=== PATIENT | male | born 1940 | race Caucasian/White ===

== ENCOUNTER 2019-11-15 11:38 | Outpatient (CLI) | payer MEDICARE, OTHER, SELFPAY ==
--- NOTE | 2019-11-15 | US_ITS ---
WS: [id number] ULTRASOUND ABDOMINAL AORTA INDICATION: Abdominal pain CTA TECHNIQUE: Ultrasound examination of the abdominal aorta with Doppler. FINDINGS: Abdominal aorta appears unchanged from prior CTA. Proximal common iliac arteries are normal caliber. Distal abdominal aorta measures 2.0 x 1.9 cm. 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 Distal abdominal aorta measures 2.0 x 1.9 cm.
== END 2019-11-15 11:39 | disposition home or self-care (01) ==
LOC: RADOUTREAD 13:20
PROVIDERS: Family Provider Family Medicine; Visit Provider Family Medicine
DX: Z76.89 Persons encountering health services in other specified circumstances (principal)

== ENCOUNTER 2019-11-18 20:12 | Emergency (ER) | payer MEDICARE, OTHER, SELFPAY ==
[2019-11-18 20:28] VITALS: BP 196/69; PULSE 38; RESP 18; TEMP 37.1; O2SAT 96; BMI 29.5
[2019-11-18 20:49] VITALS: BP 169/80; PULSE 40; RESP 13; O2SAT 96
--- NOTE | 2019-11-18 21:07 | ED_ITS ---
Entered by Karena Hunt, acting as scribe for Parker Villegas DO HPI - General Adult General: Chief complaint: General Medical Stated complaint: high bp/low hr Time Seen by Provider: 11/18/19 21:04 Source: patient Mode of arrival: ambulatory Limitations: no limitations History of Present Illness: HPI narrative: 79 yo m came to the er pov with for low pulse rate. Pt states that he had open heart surgery 8 years ago. Pt has been having some trouble keeping it up. MD complaint: low pulse rate Onset (ago): day(s) (today) Severity: mild Associated symptoms: Deny chest pain, confusion, dyspnea, headache(s), nausea, rash, palpitations or vomiting Review of Systems Const: Denies: fever or chills Eyes: Denies: change in vision or blurry vision ENMT: Denies: painful swallowing, swelling of lips/tongue, bleeding gums, dental pain, Change in hearing, nose bleeds, post nasal drip or facial/sinus pain Card: Denies: chest pain, palpitations, irregular heart rhythm, edema, swelling of feet/ankles, shortness of breath on exertion or shortness of breath when lying down Resp: Denies: shortness of breath, productive cough, non-productive cough or wheezing GI: Denies: abdominal pain, nausea, vomiting, rectal pain, blood in stool or black tarry stool : Denies: difficulty urinating, painful urination, urinary frequency, urinary urgency or blood in urine Musc: Denies: neck pain, back pain, redness or joint warmth Skin/Breast: Denies: rash, itching or redness Neuro: Denies: headache, dizziness, vertigo, confusion or seizure-like activity Psych: Denies: anxiety PFSH ED PFSH: Statuses (acute, chronic, etc) shown below reflect problem list status as previously entered and may not be historically accurate Social History Smoking and tobacco status: former smoker Physical Exam Const: GENERAL APPEARANCE: well developed ORIENTATION/CONSCIOUSNESS: Yes oriented to person, Yes oriented to place and Yes oriented to time HENMT: COMMON NORMALS: normocephalic, external ears normal and external nose normal HEAD & SCALP: normocephalic; no scalp tenderness FACE & SINUS: normal facial exam NOSE: external nose normal and no nasal discharge EXTERNAL EAR: Yes external ears normal MOUTH: tongue normal TEETH & GINGIVA: no abnormal tooth and associated gingiva THROAT: posterior oropharynx normal; no peritonsillar mass Eye: COMMON NORMALS: PERRL, EOMs intact bilaterally and conjunctivae normal EYELID: eyelids normal CONJUNCTIVA: Yes conjunctivae normal PUPIL: Yes PERRL Neck/C-Spine: COMMON NORMALS: full ROM GENERAL: No tracheal deviation Chest: COMMONS NORMALS: inspection of chest normal CHEST: No tenderness Resp: COMMON NORMALS: clear to auscultation bilaterally EFFORT & INSPECTION: No tachypneic, No respiratory distress, No retractions, No uses accessory muscles and No tracheal deviation AUSCULTATION: clear to auscultation bilaterally, no rhonchi, no wheezes and lung sounds not diminished Cardio: COMMON NORMALS: negative for regular rate and negative for regular rhythm RATE: abnormal rate RHYTHM: abnormal rhythm HEART SOUNDS: no murmurs PERIPHERAL PULSES: radial pulses present GI: INSPECTION: No abdominal distension AUSCULTATION: No hyperactive bowel sounds and No hypoactive bowel sounds PALPATION: No guarding and No rigid PERCUSSION: no dullness to percussion and no tympanic to percussion Neuro: SENSORIUM/ORIENTATION: Yes oriented to person, Yes oriented to place and Yes oriented to time Psych: COMMON NORMALS: mental status grossly normal Skin: COMMON NORMALS: no rashes or lesions noted GENERAL SKIN EXAM: no rashes or lesions noted Course ED course: 79-year-old male with a irregular bradycardic rhythm that is been going on for quite some time. He is not presyncopal or syncopal. He is not experiencing chest discomfort or shortness of breath. He had told his primary physician about it previously, and an EKG was run showing frequent PVCs. Similar EKG showing sinus bradycardia with frequent PVCs is seen here. His troponin did not change at 2 hours. His other work-up is benign including chest x-ray which is negative. He is taking metoprolol daily, which could be adding to his bradycardia. He has an appointment with a physician wanigan clerk at the cardiology clinic on Thursday. He will hold his metoprolol for the next 2 days, monitor his blood pressure and heart rate closely, and report numbers to them. He knows to return for any problems. Vital Signs: Vital signs: Vital Signs Temperature 98.7 F 11/18/19 20:28 Pulse Rate 53 L 11/19/19 00:56 Respiratory Rate 14 11/19/19 00:56 Blood Pressure 136/58 11/19/19 00:56 Pulse Oximetry 95 11/19/19 00:56 [facility] - General Adult Lab Data: Labs: Lab Results 11/18/19 11/18/19 11/18/19 Range/Units 21:50 21:50 21:50 WBC 6.7 (4.0-10.0) 10^3/ uL RBC 4.37 (4.1-5.3) 10^6/u L Hgb 13.3 (11.7-16.6) g/dL Hct 40.3 L (42.0-52.0) % MCV 92.2 (80-94) fL MCH 30.4 (28.0-34.0) pg MCHC 33.0 (30.0-36.0) g/dL RDW 12.4 (12.1-15.1) % Plt Count 207 (130-400) 10^3/c mm MPV 11.1 H (7.4-10.4) fL Neut % (Auto) 46.9 % Lymph % (Auto) 33.8 % Hart % (Auto) 14.1 % Eos % (Auto) 3.6 % Baso % (Auto) 1.4 % Neut # (Auto) 3.1 (1.8-7.7) 10^3/u L Lymph # (Auto) 2.3 (0.8-4.8) 10^3/u L Hart # (Auto) 0.9 (0.2-0.9) 10^3/u L Eos # (Auto) 0.2 (0.0-0.8) 10^3/u L Baso # (Auto) 0.1 (0.0-0.1) 10^3/u L Nucleated RBC % (a uto) 0 % Nucleated RBCs # 0.0 /100WBC PT 22.30 H (10.5-13.3) SECO NDS INR 1.88 H (0.8-1.2) APTT 51.7 H (23.9-36.7) SECO NDS Sodium 138 (136-145) mmol/L Potassium 4.1 (3.5-5.1) mmol/L Chloride 103 (98-107) mmol/L Carbon Dioxide 23 (22-29) mmol/L Anion Gap 16.1 (5-19) BUN 16 (8-23) mg/dL Creatinine 1.0 (0.7-1.2) mg/dL Glucose 120 H (74-106) mg/dL Calcium 9.5 (8.5-10.5) mg/dL Magnesium 2.3 (1.7-2.3) mg/dL Total Bilirubin 0.2 (0.15-1.2) mg/dL AST 19 (0-40) U/L ALT 16 (0-41) U/L Alkaline Phosphata se 77 (40-130) IU/L Creatine Kinase 231 (39-308) U/L Troponin T Baselin e (0-15) ng/mL Troponin T 120 Min cachil dehe (0-15) ng/mL Delta Troponin T (0-10) ABS# NT-Pro-B Natriuret Pep 317 (0-450) pg/mL Total Protein 6.8 (6.6-8.7) g/dL Albumin 3.9 (3.5-5.2) g/dL Globulin 2.9 (1.3-4.6) g/dL TSH 4.47 H (0.27-4.20) uIU/ mL Urine Color (Yellow) Urine Appearance (CLEAR) Urine pH (5-7) Ur Specific Gravit y (1.005-1.030) Urine Protein (Negative) Urine Glucose (UA) (Normal) Urine Ketones (Negative) Urine Occult Blood (Negative) Urine Nitrate (Negative) Urine Bilirubin (NEGATIVE) Urine Urobilinogen (Negative) mg/dL Ur Leukocyte Maria Guadalupe ase (Negative) Urine RBC (0-2) /hpf Urine WBC (0-5) /hpf Ur Squamous Epith Cells (0-5) Urine Bacteria (NONE) 11/18/19 11/18/19 11/18/19 Range/Units 21:50 22:24 23:38 WBC (4.0-10.0) 10^3/ uL RBC (4.1-5.3) 10^6/u L Hgb (11.7-16.6) g/dL Hct (42.0-52.0) % MCV (80-94) fL MCH (28.0-34.0) pg MCHC (30.0-36.0) g/dL RDW (12.1-15.1) % Plt Count (130-400) 10^3/c mm MPV (7.4-10.4) fL Neut % (Auto) % Lymph % (Auto) % Hart % (Auto) % Eos % (Auto) % Baso % (Auto) % Neut # (Auto) (1.8-7.7) 10^3/u L Lymph # (Auto) (0.8-4.8) 10^3/u L Hart # (Auto) (0.2-0.9) 10^3/u L Eos # (Auto) (0.0-0.8) 10^3/u L Baso # (Auto) (0.0-0.1) 10^3/u L Nucleated RBC % (a uto) % Nucleated RBCs # /100WBC PT (10.5-13.3) SECO NDS INR (0.8-1.2) APTT (23.9-36.7) SECO NDS Sodium (136-145) mmol/L Potassium (3.5-5.1) mmol/L Chloride (98-107) mmol/L Carbon Dioxide (22-29) mmol/L Anion Gap (5-19) BUN (8-23) mg/dL Creatinine (0.7-1.2) mg/dL Glucose (74-106) mg/dL Calcium (8.5-10.5) mg/dL Magnesium (1.7-2.3) mg/dL Total Bilirubin (0.15-1.2) mg/dL AST (0-40) U/L ALT (0-41) U/L Alkaline Phosphata se (40-130) IU/L Creatine Kinase (39-308) U/L Troponin T Baselin e 28 H (0-15) ng/mL Troponin T 120 Min cachil dehe 25.59 H (0-15) ng/mL Delta Troponin T -2.41 L (0-10) ABS# NT-Pro-B Natriuret Pep (0-450) pg/mL Total Protein (6.6-8.7) g/dL Albumin (3.5-5.2) g/dL Globulin (1.3-4.6) g/dL TSH (0.27-4.20) uIU/ mL Urine Color Yellow (Yellow) Urine Appearance Clear (CLEAR) Urine pH 6.5 (5-7) Ur Specific Gravit y 1.010 (1.005-1.030) Urine Protein Neg (Negative) Urine Glucose (UA) Norm (Normal) Urine Ketones Negative (Negative) Urine Occult Blood 2+ H (Negative) Urine Nitrate Negative (Negative) Urine Bilirubin Neg (NEGATIVE) Urine Urobilinogen Norm (Negative) mg/dL Ur Leukocyte Maria Guadalupe ase Negative (Negative) Urine RBC Rare (0-2) /hpf Urine WBC None (0-5) /hpf Ur Squamous Epith Cells None (0-5) Urine Bacteria Trace (NONE) Discharge Plan Discharge Patient Disposition: Home, Self-Care Condition: Stable Discharge Orders: Discharge Order (Routine); Ordered 11/19/19 Ordered By: Parker Villegas Referrals: Brandon Lopez MD [Primary Care Provider] - Discharge Diet: Usual diet Discharge Activity: Increase activity as tolerated Patient Instructions: Bradycardia (ED) Activity Restrictions/Additional Instructions: Try holding your metoprolol over the weekend. Check your blood pressure and heart rate twice daily. If symptomatic, meaning significantly dizzy, feeling like you are going to pass out, lightheaded, mental status changes, chest discomfort, other concerning symptoms, return to the ER. Otherwise keep your appointment on Thursday. Report your heart rate and blood pressure readings then. Discharge Date/Time: 11/19/19 01:03 Coding Level of Care Code ED Cullet Crusher for Chg Lo The documentation recorded by the Gilbert perales Stephanie Lyn, accurately reflects the service I personally performed and the decisions made by Bakari mora Jeremy John, Nov 18, 2019 20:12
--- NOTE | 2019-11-18 21:42 | XRR_ITS ---
PROCEDURE INFORMATION: Exam: XR Chest, 1 View Exam date and time: 11/18/2019 9:44 PM Age: 79 years old Clinical indication: Other: Low heart rate; Prior surgery; Surgery type: Open heart; Additional info: Cp TECHNIQUE: Imaging protocol: XR of the chest Views: 1 view. COMPARISON: CR Chest 2 views* [id number] 08/30/2018 3:17 AM FINDINGS: Lungs: Unremarkable. No consolidation. Pleural space: Unremarkable. No pleural effusion. No pneumothorax. Heart/Mediastinum: The heart is enlarged. Sternotomy wires and mediastinal surgical clips are present, consistent with previous coronary arterial bypass grafting. Bones/joints: No acute abnormality. XR/XR chest 1V portable [id number] IMPRESSION: No acute findings.
--- NOTE | 2019-11-18 21:43 | ECG_ITS ---
Measurements Intervals [place] Rate: 69 P: 25 SD: 152 QRS: 66 QRSD: 106 T: -14 QT: 387 QTc: 415 SINUS RHYTHM WITH FREQUENT VENTRICULAR PREMATURE COMPLEXES IN A BIGEMINAL PATTERN NONSPECIFIC ST & T-WAVE ABNORMALITY Compared to ECG 04/16/2018 14:14:48 T-wave abnormality now present Incomplete right bundle-branch block no longer present Electronically Signed On 11-19-2019 16:23:24 DISTRICT RECRUITER by Damián Earl M.D. [id number]
[2019-11-18 21:59] LABS: Basophils # 0.1 10^3/uL (0.0-0.1); Basophils % 1.4 %; Eosinophils # 0.2 10^3/uL (0.0-0.8); Eosinophils % 3.6 %; Hematocrit 40.3 % (42.0-52.0); Hemoglobin 13.3 g/dL (11.7-16.6); Lymphocytes # 2.3 10^3/uL (0.8-4.8); Lymphocytes % 33.8 %; Mean Corpuscular Hemoglobin 30.4 pg (28.0-34.0); Mean Corpuscular Volume 92.2 fL (80-94); Mean Platelet Volume 11.1 fL (7.4-10.4); Monocytes # 0.9 10^3/uL (0.2-0.9); Monocytes % 14.1 %; Neutrophils # 3.1 10^3/uL (1.8-7.7); Neutrophils % 46.9 %; Nucleated Red Blood Cells % 0 %; Platelet Count 207 10^3/cmm (130-400); Red Blood Count 4.37 10^6/uL (4.1-5.3); Red Cell Distribution Width 12.4 % (12.1-15.1); White Blood Count 6.7 10^3/uL (4.0-10.0)
[2019-11-18 22:06] VITALS: BP 149/79; PULSE 31; RESP 14; O2SAT 94
[2019-11-18 22:27] LABS: INR 1.88 (0.8-1.2)
[2019-11-18 22:28] LABS: Partial Thromboplastin Time 51.7 SECONDS (23.9-36.7)
[2019-11-18 22:40] LABS: Troponin(5th) Baseline 28 ng/mL (0-15)
[2019-11-18 22:49] LABS: Add Urine Microscopic? YES; Bilirubin Urine Neg (NEGATIVE); Blood Urine 2+ (Negative); Glucose Urine UA Norm (Normal); Ketones Urine Negative (Negative); Leukocyte Esterase Urine Negative (Negative); Nitrate Urine Negative (Negative); Protein Urine Neg (Negative); Urine Appearance Clear (CLEAR); Urine Color Yellow (Yellow); Urobilinogen Urine Norm (Negative); pH Urine 6.5 (5-7)
[2019-11-18 22:53] LABS: Add Urine Culture? No; Bacteria Urine TRACE; RBC Urine RARE /hpf (0-2)
[2019-11-18 23:04] LABS: Alanine Aminotransferase 16 U/L (0-41); Albumin Level 3.9 g/dL (3.5-5.2); Alkaline Phosphatase 77 IU/L (40-130); Anion Gap 16.1 (5-19); Aspartate Amino Transferase 19 U/L (0-40); Blood Urea Nitrogen 16 mg/dL (8-23); Calcium 9.5 mg/dL (8.5-10.5); Carbon Dioxide 23 mmol/L (22-29); Chloride 103 mmol/L (98-107); Creatine Phosphokinase 231 U/L (39-308); Globulin 2.9 g/dL (1.3-4.6); Glucose 120 mg/dL (74-106); Magnesium 2.3 mg/dL (1.7-2.3); NT Pro B Type Natriuretic Pept 317 pg/mL (0-450); Potassium 4.1 mmol/L (3.5-5.1); Sodium 138 mmol/L (136-145); Thyroid Stimulating Hormone 4.47 uIU/mL (0.27-4.20); Total Bilirubin 0.2 mg/dL (0.15-1.2); Total Protein 6.8 g/dL (6.6-8.7)
[2019-11-19] LABS: Troponin 5 2HR 25.59 ng/mL (0-15)
--- NOTE | 2019-11-19 00:01 | PC.NURSE ---
EKG done at 0000 and shown to ER doctor.
[2019-11-19] MEDS: enalaprilat 1.25 mg/mL Inj IVP (00:02)
[2019-11-19 00:03] VITALS: BP 147/58; PULSE 34; RESP 16; O2SAT 97
[2019-11-19 00:08] LABS: Troponin 5 2HR Delta -2.41 ABS# (0-10)
[2019-11-19 00:56] VITALS: BP 136/58; PULSE 53; RESP 14; O2SAT 95
--- NOTE | 2019-11-19 03:43 | ECG_ITS ---
Measurements Intervals [place] Rate: 58 P: 42 SD: 175 QRS: -3 QRSD: 109 T: 78 QT: 462 QTc: 458 SINUS BRADYCARDIA WITH OCCASIONAL VENTRICULAR PREMATURE COMPLEXES MINIMAL ST DEPRESSION [0.025+ mV ST DEPRESSION] Compared to ECG 04/16/2018 14:14:48 ST (T wave) deviation now present Sinus rhythm no longer present Incomplete right bundle-branch block no longer present Electronically Signed On 11-19-2019 16:28:38 SCHOOL PSYCHOLOGY SPECIALIST by Damián Earl M.D. [id number]
== END 2019-11-19 01:03 | disposition home or self-care (01) ==
PROVIDERS: Emergency Provider Emergency Medicine; Family Provider Family Medicine; PCP Family Medicine
DX: I10 Essential (primary) hypertension (principal); Z87.891 Personal history of nicotine dependence; R07.9 Chest pain, unspecified
CPT/HCPCS: 71045; 80053; 81001; 82550; 83735; 83880; 84443; 84484; 85025; 85610; 85730; 93005; 96374; 99283; 99284; A9270; J3490

== ENCOUNTER 2019-11-21 15:21 | Emergency (ER) | payer MEDICARE, OTHER, SELFPAY ==
[2019-11-21 15:08] VITALS: BP 177/64; PULSE 71; RESP 18; TEMP 36.8; O2SAT 96; BMI 29.5
--- NOTE | 2019-11-21 15:21 | ED_ITS ---
Entered by Jazmyne Pérez, acting as scribe for HPI - Chest Pain General: Chief Complaint: Chest Pain Stated Complaint: HEART PALPITATIONS History of Present Illness: HPI narrative: 79 yo male presents with palpations. Pt states that he has an appointment with his senior assistant manager at 330 today but he had some chest pains and palpations that he was concerned with. Pt is hypertensive, so he took nitro. Pt states that he noticed that he has been having low heart rate lately. MD complaint: chest pain Associated symptoms: Reports palpitations; Deny abdominal pain, dyspnea, fever(s), nausea, syncope or vomiting Review of Systems Const: Denies: fever, chills, body aches, fatigue, malaise or night sweats Eyes: Denies: change in vision or blurry vision ENMT: Denies: throat pain, oral sores/lesions, dental pain, nasal discharge or nasal congestion Card: Reports: palpitations and irregular heart rhythm; Denies: chest pain, edema, syncope, shortness of breath on exertion, shortness of breath when lying down or leg pain with exertion Resp: Denies: shortness of breath, productive cough, non-productive cough or wheezing GI: Denies: abdominal pain, nausea, vomiting, vomiting blood, coffee grounds in vomit, difficulty swallowing, heartburn/indigestion, diarrhea, constipation, cramping, blood in stool or black tarry stool : Denies: flank pain, difficulty urinating, painful urination, urinary frequency, urinary urgency, urinary incontinence or blood in urine Musc: Denies: neck pain, back pain, extremity pain, extremity swelling, joint pain or joint swelling Skin/Breast: Denies: rash, itching or redness Neuro: Denies: headache, numbness in extremities, weakness in extremities, changes in sensation, lack of coordination, difficulty walking, frequent falls, dizziness, vertigo or confusion Psych: Denies: anxiety, depression, loss of interest, visual hallucinations, auditory hallucinations, suicidal ideation or homicidal ideation Endo: Denies: excessive urination, excessive thirst, tired all the time or cold intolerance Jean Marie/Lymph: Denies: easy bruising, easy bleeding, petechiae, enlarged lymph nodes or tender lymph nodes PFSH ED PFSH: Statuses (acute, chronic, etc) shown below reflect problem list status as previously entered and may not be historically accurate Medical History Coronary artery disease (Acute) DVT (deep venous thrombosis) (Acute) Hypertension (Acute) Superficial thrombophlebitis (Acute) Surgical History H/O angioplasty (Acute) H/O transurethral resection of prostate (Acute) History of cholecystectomy (Acute) History of hernia repair (Acute) Hx of CABG (Acute) S/P TURP (status post transurethral resection of prostate) (Acute) Social History Smoking and tobacco status: current every day smoker Physical Exam Const: COMMON NORMALS: average body habitus, oriented x3 and alert GENERAL APPEARANCE: cooperative, comfortable, well kempt and well developed NUTRITIONAL APPEARANCE: not obese ORIENTATION/CONSCIOUSNESS: Yes awake, Yes oriented to person and Yes oriented to place HENMT: COMMON NORMALS: normocephalic, head/scalp atraumatic, EAC's normal, TM's normal bilaterally, external nose normal, moist oral mucous membranes and oropharynx normal HEAD & SCALP: normocephalic and atraumatic NOSE: external nose normal EXTERNAL AUDITORY CANAL: EAC's normal TYMPANIC MEMBRANE: TM's normal bilaterally MOUTH: oral and palatal mucosa normal, lip normal and tongue normal THROAT: posterior oropharynx normal and tonsils normal Eye: COMMON NORMALS: PERRL, EOMs intact bilaterally, conjunctivae normal and no scleral icterus CONJUNCTIVA: Yes conjunctivae normal PUPIL: Yes PERRL Neck/C-Spine: COMMON NORMALS: full ROM, no lymphadenopathy, supple, no meningeal signs and thyroid normal THYROID: thyroid normal and asymmetrical Lymph: LYMPHATIC: no lymphadenopathy noted Resp: COMMON NORMALS: normal respiratory effort, no retractions, no use of accessory muscles and clear to auscultation bilaterally AUSCULTATION: clear to auscultation bilaterally Cardio: COMMON NORMALS: regular rate and regular rhythm RATE: regular rate RHYTHM: regular rhythm HEART SOUNDS: no murmurs GI: COMMON NORMALS: normal to inspection, nondistended, normoactive bowel sounds, soft to palpation and no hepatosplenomegaly PALPATION: Yes soft and Yes no hepatosplenomegaly : COMMON NORMALS: Yes no CVA tenderness BLADDER/KIDNEY EXAM: Yes no CVA tenderness Back/Pelvis: COMMON NORMALS: no CVA tenderness LUMBAR SPINE/LOWER BACK: Yes normal to inspection Extremity: COMMON NORMALS: no clubbing, cyanosis or edema, no calf tenderness and no pedal edema Neuro: COMMON NORMALS: oriented x3 SENSORIUM/ORIENTATION: Yes alert, Yes oriented to person and Yes oriented to place MENINGEAL SIGNS: Yes no meningeal signs Psych: APPEARANCE: Yes well kempt Skin: COMMON NORMALS: no rashes or lesions noted and skin turgor normal GENERAL SKIN EXAM: no rashes or lesions noted and turgor normal Course Vital Signs: Vital signs: Vital Signs Temperature 98.3 F 11/21/19 15:08 Pulse Rate 73 11/21/19 19:23 Respiratory Rate 16 11/21/19 19:23 Blood Pressure 178/72 11/21/19 19:23 Pulse Oximetry 96 11/21/19 19:23 MDM - Chest Pain Lab Data: Labs: Lab Results 11/21/19 11/21/19 11/21/19 Range/Units 16:24 16:24 16:24 WBC 5.3 (4.0-10.0) 10^3/ uL RBC 4.61 (4.1-5.3) 10^6/u L Hgb 14.1 (11.7-16.6) g/dL Hct 43.3 (42.0-52.0) % MCV 93.9 (80-94) fL MCH 30.6 (28.0-34.0) pg MCHC 32.6 (30.0-36.0) g/dL RDW 12.4 (12.1-15.1) % Plt Count 208 (130-400) 10^3/c mm MPV 11.0 H (7.4-10.4) fL Neut % (Auto) 59.4 % Lymph % (Auto) 26.0 % Yancey % (Auto) 11.2 % Eos % (Auto) 2.1 % Baso % (Auto) 1.1 % Neut # (Auto) 3.2 (1.8-7.7) 10^3/u L Lymph # (Auto) 1.4 (0.8-4.8) 10^3/u L Yancey # (Auto) 0.6 (0.2-0.9) 10^3/u L Eos # (Auto) 0.1 (0.0-0.8) 10^3/u L Baso # (Auto) 0.1 (0.0-0.1) 10^3/u L Nucleated RBC % (a uto) 0 % Nucleated RBCs # 0.0 /100WBC Sodium 139 (136-145) mmol/L Potassium 4.0 (3.5-5.1) mmol/L Chloride 103 (98-107) mmol/L Carbon Dioxide 25 (22-29) mmol/L Anion Gap 15.0 (5-19) BUN 15 (8-23) mg/dL Creatinine 1.0 (0.7-1.2) mg/dL Glucose 107 H (74-106) mg/dL Calcium 9.7 (8.5-10.5) mg/dL Total Bilirubin 0.3 (0.15-1.2) mg/dL AST 20 (0-40) U/L ALT 18 (0-41) U/L Alkaline Phosphata se 84 (40-130) IU/L Troponin T Baselin e 28 H (0-15) ng/mL Troponin T 120 Min tangirnaq (0-15) ng/mL Delta Troponin T (0-10) ABS# Total Protein 7.4 (6.6-8.7) g/dL Albumin 4.2 (3.5-5.2) g/dL Globulin 3.2 (1.3-4.6) g/dL 11/21/19 Range/Units 18:27 WBC (4.0-10.0) 10^3/ uL RBC (4.1-5.3) 10^6/u L Hgb (11.7-16.6) g/dL Hct (42.0-52.0) % MCV (80-94) fL MCH (28.0-34.0) pg MCHC (30.0-36.0) g/dL RDW (12.1-15.1) % Plt Count (130-400) 10^3/c mm MPV (7.4-10.4) fL Neut % (Auto) % Lymph % (Auto) % Yancey % (Auto) % Eos % (Auto) % Baso % (Auto) % Neut # (Auto) (1.8-7.7) 10^3/u L Lymph # (Auto) (0.8-4.8) 10^3/u L Yancey # (Auto) (0.2-0.9) 10^3/u L Eos # (Auto) (0.0-0.8) 10^3/u L Baso # (Auto) (0.0-0.1) 10^3/u L Nucleated RBC % (a uto) % Nucleated RBCs # /100WBC Sodium (136-145) mmol/L Potassium (3.5-5.1) mmol/L Chloride (98-107) mmol/L Carbon Dioxide (22-29) mmol/L Anion Gap (5-19) BUN (8-23) mg/dL Creatinine (0.7-1.2) mg/dL Glucose (74-106) mg/dL Calcium (8.5-10.5) mg/dL Total Bilirubin (0.15-1.2) mg/dL AST (0-40) U/L ALT (0-41) U/L Alkaline Phosphata se (40-130) IU/L Troponin T Baselin e (0-15) ng/mL Troponin T 120 Min tangirnaq 26.44 H (0-15) ng/mL Delta Troponin T -1.56 L (0-10) ABS# Total Protein (6.6-8.7) g/dL Albumin (3.5-5.2) g/dL Globulin (1.3-4.6) g/dL Discharge Plan Discharge Patient Disposition: Home, Self-Care Clinical Impression: Hypertension, Atypical chest pain, Heart palpitations Condition: Stable Prescriptions: New amlodipine 10 mg tablet 10 mg PO DAILY Qty: 30 RF: 0 Discontinued amlodipine 5 mg tablet 5 mg PO DAILY RF: 0 No Action lisinopril 20 mg tablet 20 mg PO DAILY RF: 0 Nitrostat 0.4 mg Tablet, Sublingual 0.4 mg SUBLINGUAL Q5M PRN (Reason: Chest Pain) RF: 0 Toprol XL 25 mg tablet extended release 24 hr 12.5 mg PO DAILY RF: 0 Xarelto 20 mg tablet 20 mg PO DAILY RF: 0 Discharge Orders: Discharge Order (Routine); Ordered 11/21/19 Ordered By: Zi Ivory Referrals: Brandon Lopez MD [Primary Care Provider] - Discharge Activity: Increase activity as tolerated Activity Restrictions/Additional Instructions: Aloe up with your doctor within 1 week to reassess your blood pressure. If you develop chest pain return to the emergency room Discharge Date/Time: 11/21/19 19:23 Coding Level of Care Code ED End Frazer for Chg Fwd Exam Problem Focused The documentation recorded by the Beto perales Kialy, accurately reflects the service I personally performed and the decisions made by , Zi Ivory, Nov 21, 2019 15:21
[2019-11-21 15:49] VITALS: O2SAT 97
--- NOTE | 2019-11-21 15:58 | ECG_ITS ---
Measurements Intervals [place] Rate: 66 P: 48 PA: 168 QRS: 10 QRSD: 105 T: 76 QT: 455 QTc: 480 SINUS RHYTHM WITH FREQUENT VENTRICULAR PREMATURE COMPLEXES PROLONGED QT INTERVAL Compared to ECG 11/19/2019 00:01:19 Prolonged QT interval now present Sinus bradycardia no longer present ST (T wave) deviation no longer present Electronically Signed On 11-21-2019 21:02:39 TUBE FORMER OPERATOR by Damián Earl M.D. [id number]
--- NOTE | 2019-11-21 15:58 | XRR_ITS ---
PROCEDURE INFORMATION: Exam: XR Chest, 1 View Exam date and time: 11/21/2019 3:59 PM Age: 79 years old Clinical indication: Chest pain; Type not specified; Prior surgery; Surgery date: 6+ months TECHNIQUE: Imaging protocol: XR of the chest Views: 1 view. COMPARISON: CR (CHEST, ) 11/18/2019 9:55 PM FINDINGS: Lungs: Unremarkable. No consolidation. Unchanged mild basilar fibrosis/interstitial prominence. Pleural space: Unremarkable. No pleural effusion. No pneumothorax. Heart/Mediastinum: Sternotomy wires and mediastinal surgical clips are present, consistent with previous coronary arterial bypass grafting. The heart is enlarged. Bones/joints: No acute abnormality. XR/XR chest 1V portable [id number] IMPRESSION: Unchanged exam.
[2019-11-21 16:38] LABS: Basophils # 0.1 10^3/uL (0.0-0.1); Basophils % 1.1 %; Eosinophils # 0.1 10^3/uL (0.0-0.8); Eosinophils % 2.1 %; Hematocrit 43.3 % (42.0-52.0); Hemoglobin 14.1 g/dL (11.7-16.6); Lymphocytes # 1.4 10^3/uL (0.8-4.8); Mean Corpuscular HGB Conc 32.6 g/dL (30.0-36.0); Mean Corpuscular Hemoglobin 30.6 pg (28.0-34.0); Mean Corpuscular Volume 93.9 fL (80-94); Monocytes # 0.6 10^3/uL (0.2-0.9); Monocytes % 11.2 %; Neutrophils # 3.2 10^3/uL (1.8-7.7); Neutrophils % 59.4 %; Nucleated Red Blood Cells % 0 %; Platelet Count 208 10^3/cmm (130-400); Red Blood Count 4.61 10^6/uL (4.1-5.3); Red Cell Distribution Width 12.4 % (12.1-15.1); White Blood Count 5.3 10^3/uL (4.0-10.0)
[2019-11-21 16:56] LABS: Alanine Aminotransferase 18 U/L (0-41); Albumin Level 4.2 g/dL (3.5-5.2); Alkaline Phosphatase 84 IU/L (40-130); Aspartate Amino Transferase 20 U/L (0-40); Blood Urea Nitrogen 15 mg/dL (8-23); Calcium 9.7 mg/dL (8.5-10.5); Carbon Dioxide 25 mmol/L (22-29); Chloride 103 mmol/L (98-107); Globulin 3.2 g/dL (1.3-4.6); Glucose 107 mg/dL (74-106); Sodium 139 mmol/L (136-145); Total Bilirubin 0.3 mg/dL (0.15-1.2); Total Protein 7.4 g/dL (6.6-8.7)
[2019-11-21 16:59] LABS: Troponin(5th) Baseline 28 ng/mL (0-15)
--- NOTE | 2019-11-21 17:58 | ECG_ITS ---
Measurements Intervals [place] Rate: 75 P: 48 KS: 174 QRS: -5 QRSD: 110 T: 78 QT: 424 QTc: 476 SINUS RHYTHM WITH FREQUENT VENTRICULAR PREMATURE COMPLEXES INCOMPLETE RIGHT BUNDLE BRANCH BLOCK [90+ ms QRS DURATION, TERMINAL R IN V1/V2, + 40+ ms S IN I/aVL/V4/V5/V6] MODERATE ST DEPRESSION [0.05+ mV ST DEPRESSION] Compared to ECG 11/19/2019 00:01:19 Incomplete right bundle-branch block now present Sinus bradycardia no longer present ST (T wave) deviation still present Electronically Signed On 11-21-2019 21:10:28 DRY END OPERATOR by Damián Earl M.D. [id number]
[2019-11-21 18:05] VITALS: BP 179/89; PULSE 73; RESP 14; O2SAT 97
[2019-11-21 18:57] LABS: Troponin 5 2HR 26.44 ng/mL (0-15)
[2019-11-21 19:05] LABS: Troponin 5 2HR Delta -1.56 ABS# (0-10)
[2019-11-21 19:23] VITALS: BP 178/72; PULSE 73; RESP 16; O2SAT 96
== END 2019-11-21 19:23 | disposition home or self-care (01) ==
PROVIDERS: Emergency Provider Family Medicine; Family Provider Family Medicine; PCP Family Medicine
DX: R07.89 Other chest pain (principal); R00.2 Palpitations; I10 Essential (primary) hypertension; I25.10 Atherosclerotic heart disease of native coronary artery without angina pectoris; Z95.1 Presence of aortocoronary bypass graft; F17.210 Nicotine dependence, cigarettes, uncomplicated
CPT/HCPCS: 36415; 71045; 80053; 84484; 85025; 93005; 99283; 99284

== ENCOUNTER 2019-11-25 15:37 | Outpatient (CLI) | payer MEDICARE, OTHER, SELFPAY ==
--- NOTE | 2019-11-25 | USCV_ITS ---
Anish Colon Age: 79 Gender: M : 1940 Exam Date: 11/25/2019 15:52 Ordering Phys: Brandon Lopez MD Technologist: Carolina Kevin Exam Location: [facility] [place] Indication: BRIAN BP: 141 / 73 HR: 79 Rhythm: Sinus Technical Quality: MEASUREMENTS (Male / Female) Normal Values 2D ECHO LV Diastolic Diameter PLAX 6.1 cm 4.2 - 5.9 / 3.9 - 5.3 cm LV Systolic Diameter PLAX 4.2 cm LV Chamber Size 3.9 cm IVS Diastolic Thickness 1.3 cm 0.6 - 1.0 / 0.6 - 0.9 cm IVS Systolic Thickness 2.2 cm LVPW Diastolic Thickness 1.0 cm 0.6 - 1.0 / 0.6 - 0.9 cm LVPW Systolic Thickness 1.3 cm RV Chamber Size 4.7 cm LVOT Diameter 2.1 cm LV Ejection Fraction 2D Teich 57.5 % LV Ejection Fraction MOD 2C 52.8 % LV Ejection Fraction 2C AL 52.2 % LA Diameter 5.3 cm LA Width 2.6 cm LA Height 4.9 cm RA Width 3.1 cm RA Height 4.7 cm Aorta at Sinotubular Diameter 3.3 cm M-MODE LV Diastolic Diameter MM 6.0 cm 4.2 - 5.9 / 3.9 - 5.3 cm LV Systolic Diameter MM 4.6 cm LV Ejection Fraction MM Teich 45.0 % IVS Diastolic Thickness MM 0.9 cm 0.6 - 1.0 / 0.6 - 0.9 cm IVS Systolic Thickness MM 1.4 cm LVPW Diastolic Thickness MM 1.3 cm 0.6 - 1.0 / 0.6 - 0.9 cm LVPW Systolic Thickness MM 1.8 cm RV Diastolic Diameter MM 1.5 cm Aortic Annulus Diameter 3.7 cm LA Ao Ratio MM 1.4 DOPPLER AV Peak Velocity 260.0 cm/s LVOT Peak Velocity 128.0 cm/s AV Area Cont Eq vti 2.0 cm squared AV Area Cont Eq pk 1.6 cm squared MV Area PHT 3.5 cm squared Mitral E to A Ratio 0.8 MV E' Velocity 14.0 cm/s Mitral E to MV E' Ratio 8.8 Mitral E to LV E' Lateral Ratio 6.5 Mitral E to LV E' Septal Ratio 13.7 TR Peak Velocity 181.0 cm/s TR Peak Gradient 13.1 mmHg TR Mean Velocity 200.9 cm/s TR Mean Gradient 18.0 mmHg TR Velocity Time Integral 82.0 cm TV Peak E Velocity 78.0 cm/s Right Atrial Pressure 3.0 mmHg Pulmonary Artery Systolic Pressu 16.1 mmHg PV Peak Velocity 122.0 cm/s RV Acceleration Time 0.1 s RV Ejection Time 0.4 s RV AcT/ET 0.4 FINDINGS Left Ventricle Moderately increased left ventricular cavity size. Mildly decreased left ventricular systolic function. Global left ventricular hypokinesis. Left ventricular ejection fraction is estimated at 51 %. Grade I/IV diastolic dysfunction (abnormal relaxation filling pattern), normal to mildly elevated filling pressures. Right Ventricle The right ventricle is normal in size and function. Right Atrium The right atrium is normal in size. Left Atrium Moderately increased left atrial size. Mitral Valve Moderately thickened mitral valve. No mitral valve stenosis. Moderate mitral valve regurgitation. Aortic Valve Moderate aortic valve calcification. Mild aortic valve stenosis, mean gradient 9.4 mmHg, NEETA 2 cm squared. Trace aortic valve regurgitation. Tricuspid Valve [id number] tricuspid valve regurgitation. Pulmonic Valve Trace pulmonary valve regurgitation. Pericardium Normal pericardium without effusion. Aorta Normal ascending aorta dimension. CONCLUSIONS 1-Moderately increased left ventricular cavity size. Mildly decreased left ventricular systolic function. Global left ventricular hypokinesis. Left ventricular ejection fraction is estimated at 51 %. Grade I/IV diastolic dysfunction (abnormal relaxation filling pattern), normal to mildly elevated filling pressures. 2-Moderately increased left atrial size. 3-Moderately thickened mitral valve. No mitral valve stenosis. Moderate mitral valve regurgitation. 4-Moderate aortic valve calcification. Mild aortic valve stenosis, mean gradient 9.4 mmHg, NEETA 2 cm squared. Trace aortic valve regurgitation. 8-Dhnd-hg-moderate tricuspid valve regurgitation. 6-There is no pericardial effusion. 7-When compared to the prior echocardiogram dated 09/10/2015, left ventricle ejection fraction has slightly reduced to 51mmHg which may actually be normal but due to [id number] variation it may appeared to be mildly reduced otherwise there is no significant change Esha Orellana MD (Electronically Signed) Final Date: 27 November 2019 17:26 S
== END 2019-11-25 15:38 | disposition home or self-care (01) ==
LOC: US 15:38
PROVIDERS: Family Provider Family Medicine; PCP Family Medicine; Visit Provider Family Medicine
DX: I34.0 Nonrheumatic mitral (valve) insufficiency (principal); I70.0 Atherosclerosis of aorta; I35.0 Nonrheumatic aortic (valve) stenosis; I07.1 Rheumatic tricuspid insufficiency; R00.1 Bradycardia, unspecified
CPT/HCPCS: 93306

== ENCOUNTER → 2019-11-29 14:20 | Outpatient (BNVA) | payer MEDICARE, OTHER, SELFPAY | PROVIDERS: Family Provider Family Medicine; PCP Family Medicine; Visit Provider Nurse Practitioner Family | DX: I49.9 Cardiac arrhythmia, unspecified (principal); I25.10 Atherosclerotic heart disease of native coronary artery without angina pectoris; I10 Essential (primary) hypertension | CPT/HCPCS: 84443 ==

== ENCOUNTER 2020-03-27 12:26 | Outpatient (CLI) | payer MEDICARE, OTHER, SELFPAY ==
--- NOTE | 2020-03-27 12:32 | USCV_ITS ---
Anish Colon Age: 79 Gender: M : 1940 Exam Date: 03/27/2020 13:00 Ordering Phys: Brandon Lopez MD Technologist: Meryl Boston Exam Location: [facility] [place]_ Indication: SWELLING HISTORY: Lower extremity swelling. PROCEDURES: Venous duplex imaging was performed in bilateral lower extremities. The following venous structures were evaluated: common femoral vein, profunda vein, proximal portion of the greater saphenous vein, superficial femoral vein, and the popliteal vein. In addition, the posterior tibial and peroneal trunk were evaluated. Serial compression, augmentation maneuvers, and spectral Doppler flow evaluation were performed. FINDINGS: Normal 2-D Doppler and augmentation and compressibility throughout the lower extremity venous structures. Additional imaging through the proximal calf veins also reveals no thrombus. Limited evaluation of the greater saphenous vein is patent with no thrombus.. CONCLUSIONS No evidence of DVT in the above-mentioned identifiable veins. Dr Damián Earl MD [facility] (Electronically Signed) Final Date: 27 March 2020 18:19 S
== END 2020-03-27 12:27 | disposition home or self-care (01) ==
LOC: RAD 12:31
PROVIDERS: Family Provider Family Medicine; PCP Family Medicine; Visit Provider Family Medicine
DX: R52 Pain, unspecified (principal); M79.89 Other specified soft tissue disorders
CPT/HCPCS: 93970

== ENCOUNTER 2020-10-21 13:14 | Emergency (ER) | payer MEDICARE, OTHER, SELFPAY ==
[2020-10-21 13:15] VITALS: BP 160/94; PULSE 77; RESP 18; TEMP 36.4; O2SAT 95; BMI 30.4
--- NOTE | 2020-10-21 13:42 | ECG_ITS ---
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 Measurements Intervals [place] Rate: 79 P: 33 ND: 165 QRS: -34 QRSD: 141 T: 6 QT: 420 QTc: 484 Interpretive Statements SINUS RHYTHM RIGHT BUNDLE BRANCH BLOCK [120+ ms QRS DURATION, UPRIGHT V1, 40+ ms S IN I/aVL/V4/V5/V6] MODERATE VOLTAGE CRITERIA FOR LVH, CONSIDER NORMAL VARIANT [MEETS CRITERIA IN ONE OF: R(aVL), S(V1), R(V5), R(V5/V6)+S(V1)] Compared to ECG 11/21/2019 18:21:08 Indeterminate axis now present Right bundle-branch block now present Ventricular premature complex(es) no longer present Incomplete right bundle-branch block no longer present ST (T wave) deviation no longer present Electronically Signed On 10-21-2020 17:44:23 MATERIAL MIXER by Richar Dobbins M.D. [id number]
--- NOTE | 2020-10-21 13:49 | W.ED.CHESTPA ---
HPI - Chest Pain General: Chief Complaint: Chest Pain Stated Complaint: CHEST PAIN Time Seen by Provider: 10/21/20 13:16 Source: patient Mode of arrival: EMS Limitations: no limitations History of Present Illness: HPI narrative: 80-year-old male with a history of hypertension, coronary artery disease status post CABG 9 years ago. He is also had gastric bypass surgery x2. He presents to the emergency department with lower chest/abdominal pain. He believes he is more of his abdomen down his chest. Symptoms started about 30 minutes after breakfast, around 830 this morning. He has taken a total of 2 nitroglycerin tablets and 324 mg of aspirin. In the ambulance he also had a nitroglycerin paste attached to his chest. Pain is still currently about 7/10. He is here to be evaluated for the above. MD complaint: chest pain Pertinent past history: coronary artery disease, prior IA and CABG Onset (ago): hour(s) (5) Timing of current episode: constant Prior episodes: No Onset: during rest Pain location: substernal and epigastric Pain radiation: back Severity: moderate Pain scale (0-10): 7 Quality: sharp Relieving factors: nothing Exacerbating factors: nothing Associated symptoms: Reports abdominal pain; Deny dyspnea, fever(s) or palpitations Treatment prior to arrival: aspirin (324 mg) and nitroglycerin Review of Systems General: Reports: 10 or more systems reviewed and unremarkable except in HPI and below Const: Denies: fever(s), chills or body aches Eyes: Denies: change in vision or blurry vision ENMT: Denies: throat pain, enlarged tonsils, odynophagia, hoarseness, mouth pain or swelling of lips/tongue Card: Reports: chest pain; Denies: palpitations, irregular heart rhythm, edema or swelling of feet/ankles Resp: Denies: dyspnea, productive cough or non-productive cough GI: Reports: abdominal pain : Denies: flank pain, dysuria, urinary frequency, urinary urgency or urinary hesitancy Musc: Denies: neck pain, back pain or extremity swelling Skin/Breast: Denies: rash, pruritus or erythema Neuro: Denies: headache(s), numbness in extremities or weakness in extremities Endo: Denies: polyuria, polydipsia or tired all the time [facility] ED PFSH: Medical History (Reviewed 10/21/20 @ 13:54 by Sage Chauhan MD, [facility] [place]) Coronary artery disease history of CABG x3, 10/2011 DVT (deep venous thrombosis) Hypertension Superficial thrombophlebitis Surgical History (Reviewed 10/21/20 @ 13:54 by Sage Chauhan MD, [facility] [place]) H/O angioplasty H/O transurethral resection of prostate 03/2018 History of cholecystectomy History of hernia repair History of Bethany fundoplication Hx of CABG S/P TURP (status post transurethral resection of prostate) Family History (Reviewed 10/21/20 @ 13:54 by Sage Chauhan MD, [facility] [place]) Brother CAD (coronary artery disease) Father CAD (coronary artery disease) Hyperlipidemia Hypertension Mother Cancer Sister Cancer Diabetes Son Diabetes Denies family history of Clotting disorder Dementia Psychiatric illness Chronic kidney disease (CKD) Suicide Anesthesia complication Bleeding disorder Family history of premature coronary artery disease Stroke Social History (Reviewed 10/21/20 @ 13:54 by Sage Chauhan MD, [facility] [place]) Smoking and tobacco status: current every day smoker Second hand smoke exposure: Yes Alcohol intake: current Adopted: No Caregiver/support person: No Lives independently: No Household members: spouse Marital status: Current occupational status: retired Physical Exam Const: COMMON NORMALS: no acute distress, average body habitus, patient oriented x3, no limitations, healthy appearing, alert and well nourished HENMT: COMMON NORMALS: normocephalic, atraumatic and moist oral mucous membranes HEAD & SCALP: normocephalic and atraumatic Neck/C-Spine: COMMON NORMALS: no meningeal signs and no JVD Resp: COMMON NORMALS: normal respiratory effort, No retractions, No use of accessory muscles, clear to auscultation bilaterally and percussion normal AUSCULTATION: clear to auscultation bilaterally PERCUSSION: percussion normal Cardio: COMMON NORMALS: no JVD, regular rate, regular rhythm, S1 normal heart sound present, S2 normal heart sound present, No gallops present (Cardio), No clicks present (Cardio), No murmurs present (Cardio), No rub (Cardio) and Peripheral pulses 2+ throughout RATE: regular rate RHYTHM: regular rhythm HEART SOUNDS: S1 normal heart sound present and S2 normal heart sound present PERIPHERAL PULSES: Peripheral pulses 2+ throughout GI: COMMON NORMALS: Normal to inspection, nondistended, normoactive bowel sounds present, Soft to palpation, non-tender, No hepatosplenomegaly present, no masses and no bruits PALPATION: Yes Soft to palpation and Yes No hepatosplenomegaly present Extremity: COMMON NORMALS: normal to inspection, full ROM, capillary refill normal and no calf tenderness GENERAL: Yes edema (3+ pitting pedal edema) Neuro: COMMON NORMALS: patient oriented x3 SENSORIUM/ORIENTATION: Yes alert MENINGEAL SIGNS: Yes no meningeal signs Skin: COMMON NORMALS: no rashes or lesions noted, no wounds, turgor normal, no jaundice, no petechiae and no mottling GENERAL SKIN EXAM: no rashes or lesions noted and turgor normal Course Reevaluation(s): Reevaluation #1: Discussed lab and imaging findings with him. No acute findings. He does have some lung nodules and he is advised to get a repeat CT scan of his chest in 3 to 6 months. He desperately wants to be discharged home, HEART score is 6. He voiced understanding and is in agreement with the plan. Time: 17:49 Vital Signs: Vital signs: Vital Signs Temperature 97.6 F 10/21/20 13:15 Pulse Rate 77 10/21/20 15:00 Respiratory Rate 17 10/21/20 15:00 Blood Pressure 142/87 10/21/20 15:00 Pulse Oximetry 96 10/21/20 15:00 MDM - Chest Pain MDM Narrative: Medical decision making narrative: 80-year-old male who presented to the emergency department with chest and abdomen pain. Evaluation in the emergency department was unremarkable but he has pulmonary nodules which he is advised to obtain a repeat CT of his chest. Troponin mildly elevated but a flat 2 hour delta. HEART score is 6, moderate risk (17%) of MACE in the next 6 weeks. He does not want to be admitted to the hospital and was itching to be discharged home. He will f/u with his PCP. Medical Records: Attestation: I reviewed the patient's medical records. Lab Data: Attestation: I reviewed the patient's lab results. Labs: Lab Results 10/21/20 10/21/20 10/21/20 Range/Units 13:21 14:22 14:22 WBC 6.8 (4.0-10.0) 10^3/ uL RBC 4.90 (4.1-5.3) 10^6/u L Hgb 15.3 (11.7-16.6) g/dL Hct 46.4 (42.0-52.0) % MCV 94.7 H (80-94) fL MCH 31.2 (28.0-34.0) pg MCHC 33.0 (30.0-36.0) g/dL RDW 13.2 (12.1-15.1) % Plt Count 225 (130-400) 10^3/c mm MPV 11.4 H (7.4-10.4) fL Neut % (Auto) 64.7 % Lymph % (Auto) 22.1 % [place] % (Auto) 9.6 % Eos % (Auto) 2.1 % Baso % (Auto) 1.2 % Neut # (Auto) 4.37 (1.8-7.7) 10^3/u L Lymph # (Auto) 1.5 (0.8-4.8) 10^3/u L [place] # (Auto) 0.7 (0.2-0.9) 10^3/u L Eos # (Auto) 0.1 (0.0-0.8) 10^3/u L Baso # (Auto) 0.1 (0.0-0.1) 10^3/u L Nucleated RBC % (a uto) 0 % Nucleated RBCs # 0.0 /100WBC D-Dimer 1.02 H (0-0.59) ug/mIFE U Sodium 136 (136-145) mmol/L Potassium 4.2 (3.5-5.1) mmol/L Chloride 102 (98-107) mmol/L Carbon Dioxide 24 (22-29) mmol/L Anion Gap 14.2 (5-19) BUN 11 (8-23) mg/dL Creatinine 0.8 (0.7-1.2) mg/dL GFR Calculation Not Reportable Glucose 124 H (65-115) mg/dL Calculated Osmolal ity 283 L (285-295) mOsm/k g Calcium 8.9 (8.5-10.5) mg/dL Total Bilirubin 0.3 (0.15-1.2) mg/dL AST 20 (0-40) U/L ALT 18 (0-41) U/L Alkaline Phosphata se 90 (40-130) IU/L Troponin T Baselin e (0-15) ng/L Troponin T 120 Min [place] (0-15) ng/L Delta Troponin T (0-10) ABS# NT-Pro-B Natriuret Pep 178 (0-450) pg/mL Total Protein 6.7 (6.6-8.7) g/dL Albumin 3.9 (3.5-5.2) g/dL Globulin 2.8 (1.3-4.6) g/dL Lipase 27 (13-60) U/L 10/21/20 10/21/20 Range/Units 14:22 16:25 WBC (4.0-10.0) 10^3/ uL RBC (4.1-5.3) 10^6/u L Hgb (11.7-16.6) g/dL Hct (42.0-52.0) % MCV (80-94) fL MCH (28.0-34.0) pg MCHC (30.0-36.0) g/dL RDW (12.1-15.1) % Plt Count (130-400) 10^3/c mm MPV (7.4-10.4) fL Neut % (Auto) % Lymph % (Auto) % [place] % (Auto) % Eos % (Auto) % Baso % (Auto) % Neut # (Auto) (1.8-7.7) 10^3/u L Lymph # (Auto) (0.8-4.8) 10^3/u L [place] # (Auto) (0.2-0.9) 10^3/u L Eos # (Auto) (0.0-0.8) 10^3/u L Baso # (Auto) (0.0-0.1) 10^3/u L Nucleated RBC % (a uto) % Nucleated RBCs # /100WBC D-Dimer (0-0.59) ug/mIFE U Sodium (136-145) mmol/L Potassium (3.5-5.1) mmol/L Chloride (98-107) mmol/L Carbon Dioxide (22-29) mmol/L Anion Gap (5-19) BUN (8-23) mg/dL Creatinine (0.7-1.2) mg/dL GFR Calculation Glucose (65-115) mg/dL Calculated Osmolal ity (285-295) mOsm/k g Calcium (8.5-10.5) mg/dL Total Bilirubin (0.15-1.2) mg/dL AST (0-40) U/L ALT (0-41) U/L Alkaline Phosphata se (40-130) IU/L Troponin T Baselin e 20 H (0-15) ng/L Troponin T 120 Min [place] 22.30 H (0-15) ng/L Delta Troponin T 2.30 (0-10) ABS# NT-Pro-B Natriuret Pep (0-450) pg/mL Total Protein (6.6-8.7) g/dL Albumin (3.5-5.2) g/dL Globulin (1.3-4.6) g/dL Lipase (13-60) U/L Imaging Data^: Other CT: Radiologist's impression: [place] [address] CT Scan Report Signed Patient: Jay Colon #: [id number] : 9Acct#:[id number] Age/Sex: 80 / MADM Date: 10/21/20 Loc: [facility]/Bed: Attending Dr: Ordering Provider/Ordering MD: Sage Chauhan MD, [facility] [place] Date of Service: 10/21/20 Procedure(s): CT angio chest w abd pel w con Accession Number(s): [id number] Report Number: [id number] PROCEDURE INFORMATION: Exam: CT Angiography Chest With Contrast Exam date and time: 10/21/2020 4:03 PM Age: 80 years old Clinical indication: Abdominal pain; Generalized; Chest pain; Type not specified; Prior surgery; Surgery type: Cabg, gb, hernia; Additional info: Chest pain, back pain, abd pain TECHNIQUE: Imaging protocol: Computed tomographic angiography of the chest with intravenous contrast. 3D rendering (Not supervised by radiologist): MIP and/or 3D reconstructed images were created by the technologist. Radiation optimization: All CT scans at this facility use at least one of these dose optimization techniques: automated exposure control; mA and/or kV adjustment per patient size (includes targeted exams where dose is matched to clinical indication); or iterative reconstruction. Contrast material: OMNIPAQUE 350; Contrast volume: 95 ml; Contrast route: INTRAVENOUS (IV); COMPARISON: CTA Chest w Abd/Pel w* 09/06/2019 10:34 AM RADIATION DOSE METRICS: Total DLP (mGy-cm): 1585.64 FINDINGS: Pulmonary arteries: No filling defects in the pulmonary arteries to suggest pulmonary embolism. Aorta: Stable moderate atherosclerotic changes in the visualized arteries. No evidence for aortic aneurysm or aortic dissection. Lungs: Stable postsurgical changes consistent with a prior right upper lobectomy. Tracheobronchial structures are patent. Noncalcified nodules in the right upper lobe, left upper lobe, and left lower lobe are stable, the largest is in the right upper lobe and has has an average measurement 6 mm (series 4, image 32). No focal consolidation. No pulmonary edema. Pleural space: No pneumothorax. No pleural effusion. Heart: Stable mild enlargement of the heart. Stable calcification of the aortic valve. Stable extensive atherosclerotic calcification in the coronary arteries. Mediastinal space: No mediastinal hematoma. No pneumomediastinum. Lymph nodes: No lymphadenopathy. Stomach and bowel: Postsurgical changes suggesting a prior Bethany fundoplication. There is redemonstration of a small hiatal hernia, suggesting a slipped Bethany. Findings are stable. Bones/joints: Poststernotomy changes in the chest. Degenerative changes in the spine and shoulders. Bones are diffusely osteopenic. No lytic or sclerotic bony lesions. Soft tissues: No acute abnormality in the extrathoracic soft tissues. IMPRESSION: 1. No evidence for pulmonary embolism. 2. No acute cardiopulmonary process. 3. Noncalcified nodules in the right upper lobe, left upper lobe, and left lower lobe are stable, the largest is in the right upper lobe and has has an average measurement 6 mm.For patients at low risk (minimal or absent history of smoking and of other known risk factors), recommend CT Chest at 3-6 months, then consider CT Chest at 18-24 months. For patients at high risk (history of smoking or of other known risk factors), recommend CT Chest at 3-6 months, then CT Chest at 18-24 months. (Reference: Maggi) 4. Stable changes suggesting a prior slipped Bethany fundoplication. Recommend clinical correlation. 5. Incidental/nonacute findings are listed in the report. REFERENCES: Maggi Givens et al. Guidelines for Management of Incidental Pulmonary Nodules Detected on CT Images: From the Fleischner Society 2017. Radiology. 2017;284(1):228-243. PROCEDURE INFORMATION: Exam: CT Abdomen And Pelvis With Contrast Exam date and time: 10/21/2020 4:03 PM Age: 80 years old Clinical indication: Abdominal pain; Generalized; Chest pain; Type not specified; Prior surgery; Surgery type: Cabg, gb, hernia; Additional info: Chest pain, back pain, abd pain TECHNIQUE: Imaging protocol: Computed tomography of the abdomen and pelvis with intravenous contrast. Radiation optimization: All CT scans at this facility use at least one of these dose optimization techniques: automated exposure control; mA and/or kV adjustment per patient size (includes targeted exams where dose is matched to clinical indication); or iterative reconstruction. Contrast material: OMNIPAQUE 350; Contrast volume: 95 ml; Contrast route: INTRAVENOUS (IV); COMPARISON: CTA Chest w Abd/Pel w* 09/06/2019 10:34 AM RADIATION DOSE METRICS: Total DLP (mGy-cm): 1585.64 FINDINGS: Liver: The liver is unremarkable. Gallbladder and bile ducts: Stable findings consistent with a previous cholecystectomy. No biliary ductal dilatation. Pancreas: The pancreas is unremarkable. No pancreatic ductal dilatation. Spleen: The spleen is unremarkable. Adrenal glands: The right and left adrenal glands are unremarkable. Kidneys and ureters: The right and left kidneys are unremarkable. The right and left ureters are unremarkable. Stomach and bowel: Scattered diverticula in the sigmoid colon. No evidence for diverticulitis. Fluid within the small bowel without evidence of bowel wall thickening. Appendix: Appendix not definitely visualized. No inflammatory changes in the pericecal region however. Intraperitoneal space: No free intraperitoneal air. No ascites. No loculated fluid collections to suggest an abscess. Vasculature: Moderate atherosclerotic changes in the visualized arteries. No evidence for aortic aneurysm or aortic dissection. Hepatic veins, portal veins, splenic vein, and SMV are patent. Lymph nodes: No lymphadenopathy. Urinary bladder: Stable diffuse, moderate wall thickening of the bladder. Reproductive: Stable marked enlargement of the prostate gland with few prostate calcifications. Bones/joints: Bones are diffusely osteopenic. Moderate degenerative changes at both the right and left hips. Mild degenerative changes of the right and left sacroiliac joints. Multilevel degenerative changes of varying severity in the visualized spine. Patient has had interval L3, L4, and L5 laminectomies. Soft tissues: Bilateral fat containing inguinal hernias. No evidence for strangulation. No acute abnormality in the extra-abdominal soft tissues. CT/CT angio chest w abd pel w con IMPRESSION: 1. Fluid within the small bowel without evidence of bowel wall thickening. This may reflect viral gastroenteritis in the appropriate clinical situation. 2. Stable diffuse, moderate wall thickening of the bladder. In the correct clinical setting, this may suggest cystitis. Recommend correlation with laboratory findings. Alternatively, this may be secondary to chronic outlet obstruction. 3. Stable marked enlargement of the prostate gland with few prostate calcifications. 4. Scattered diverticula in the sigmoid colon. No evidence for diverticulitis. 5. Patient has had interval L3, L4, and L5 laminectomies. 6. Incidental/nonacute findings are listed in the report. Radiation Dose CTDIVOL = (mGy): DLP = 1585.64~1585.64 (mGy-cm) Dictated By:Shazia Kent MD Signed By:Shazia Kentigned Date/Time:10/21/201741 DD/ 40 EKG Data^: EKG 1: Attestation: I personally reviewed and interpreted this EKG as follows: EKG interpretation date: 10/21/20 EKG interpretation time: 13:17 Prior EKG tracings: available for review Interpretation: Sinus rhythm. Heart rate 79 bpm. Right bundle branch block. LVH. ST depression in V1, V5 and V6. EKG 2: Attestation: I personally reviewed and interpreted this EKG as follows: EKG interpretation date: 10/21/20 EKG interpretation time: 16:12 Prior EKG tracings: available for review Interpretation: Sinus rhythm with occasional PVC. Heart rate 74 bpm. Right bundle branch block. No STEMI Discharge Plan Discharge Patient Disposition: Home Clinical Impression: Multiple pulmonary nodules Chest pain Qualifiers: Chest pain type: unspecified Qualified Code(s): R07.9 - Chest pain, unspecified Condition: Stable Prescriptions: Continued omeprazole 20 mg capsule,delayed release(DR/EC) 20 mg PO BID PRN (Reason: Acid Reflux) RF: 0 lisinopril 20 mg tablet 20 mg PO DAILY@08 RF: 0 nitroglycerin [Nitrostat] 0.4 mg Tablet, Sublingual 0.4 mg SUBLINGUAL Q5M PRN (Reason: Chest Pain) RF: 0 aspirin 81 mg Tablet,Delayed Release (Dr/Ec) 324 mg PO ONCE RF: 0 Probiotic 20 billion cell Capsule See Rx Instructions .ROUTE .COMPLEX RF: 0 amlodipine 10 mg tablet 10 mg PO DAILY@08 RF: 0 Discharge Orders: Discharge ED (Routine); Ordered 10/21/20 Ordered By: Sage Chauhan Referrals: Brandon Lopez MD [Primary Care Provider] - 1-3 days Discharge Diet: Usual diet Discharge Activity: Increase activity as tolerated Patient Instructions: Chest Pain (ED), Pulmonary Nodules (ED) Activity Restrictions/Additional Instructions: Return for any new or worsening symptoms. You will need a repeat of a CT scan of your lungs in 3 to 6 months to evaluate the spots on your lungs. Follow-up with your primary care provider within 3 days. Continue your home medications. Coding Level of Care Code ED Tool Room Gear Machine Operator for Chg Fwd Exam Comprehensive
[2020-10-21 13:50] VITALS: BP 186/87; PULSE 85; RESP 18; O2SAT 97
[2020-10-21 14:15] VITALS: BP 147/85; PULSE 78; RESP 22; O2SAT 95
--- NOTE | 2020-10-21 14:16 | PC.PHAR ---
pt had a rx filled on 09/09/2020 90d/s for xarelto 10mg once a day-pt states he has that rx but hasnt been taking-pt states he stop taking xarelto about 3 months ago
[2020-10-21 14:33] LABS: Basophils # 0.1 10^3/uL (0.0-0.1); Basophils % 1.2 %; Eosinophils # 0.1 10^3/uL (0.0-0.8); Eosinophils % 2.1 %; Hematocrit 46.4 % (42.0-52.0); Hemoglobin 15.3 g/dL (11.7-16.6); Lymphocytes # 1.5 10^3/uL (0.8-4.8); Lymphocytes % 22.1 %; Mean Corpuscular Hemoglobin 31.2 pg (28.0-34.0); Mean Corpuscular Volume 94.7 fL (80-94); Mean Platelet Volume 11.4 fL (7.4-10.4); Monocytes # 0.7 10^3/uL (0.2-0.9); Monocytes % 9.6 %; Neutrophils # 4.37 10^3/uL (1.8-7.7); Neutrophils % 64.7 %; Nucleated Red Blood Cells % 0 %; Platelet Count 225 10^3/cmm (130-400); Red Cell Distribution Width 13.2 % (12.1-15.1); White Blood Count 6.8 10^3/uL (4.0-10.0)
[2020-10-21 14:59] LABS: D Dimer 1.02 ug/mIFEU (0-0.59)
[2020-10-21 15:00] VITALS: BP 142/87; PULSE 77; RESP 17; O2SAT 96
[2020-10-21 15:01] LABS: Troponin(5th) Baseline 20 ng/L (0-15)
[2020-10-21 15:25] LABS: Alanine Aminotransferase 18 U/L (0-41); Albumin Level 3.9 g/dL (3.5-5.2); Alkaline Phosphatase 90 IU/L (40-130); Blood Urea Nitrogen 11 mg/dL (8-23); Calcium 8.9 mg/dL (8.5-10.5); Carbon Dioxide 24 mmol/L (22-29); Chloride 102 mmol/L (98-107); Globulin 2.8 g/dL (1.3-4.6); Glucose 124 mg/dL (65-115); Lipase 27 U/L (13-60); NT Pro B Type Natriuretic Pept 178 pg/mL (0-450); Osmolality Calculated 283 mOsm/kg (285-295); Sodium 136 mmol/L (136-145); Total Bilirubin 0.3 mg/dL (0.15-1.2); Total Protein 6.7 g/dL (6.6-8.7)
[2020-10-21 15:26] LABS: Anion Gap 14.2 (5-19)
[2020-10-21 15:27] LABS: Aspartate Amino Transferase 20 U/L (0-40); Potassium 4.2 mmol/L (3.5-5.1)
--- NOTE | 2020-10-21 15:42 | ECG_ITS ---
[facility] Test Date: 2020-10-21 Pat Name: Anish Colon Department: Room: Gender: Male Sole Inker: : 1940 Requested By: Sage Chauhan I Order Number: [id number] Nicanor MD: Richar Dobbins M.D. Measurements Intervals [place] Rate: 74 P: 29 MI: 177 QRS: -26 QRSD: 145 T: 15 QT: 424 QTc: 473 Interpretive Statements SINUS RHYTHM WITH OCCASIONAL VENTRICULAR PREMATURE COMPLEXES RIGHT BUNDLE BRANCH BLOCK [120+ ms QRS DURATION, UPRIGHT V1, 40+ ms S IN I/aVL/V4/V5/V6] Compared to ECG 10/21/2020 13:17:09 Ventricular premature complex(es) now present Electronically Signed On 10-21-2020 17:54:37 BANDOLEER PACKER by Richar Dobbins M.D. [id number]
--- NOTE | 2020-10-21 15:43 | CTR_ITS ---
PROCEDURE INFORMATION: Exam: CT Angiography Chest With Contrast Exam date and time: 10/21/2020 4:03 PM Age: 80 years old Clinical indication: Abdominal pain; Generalized; Chest pain; Type not specified; Prior surgery; Surgery type: Cabg, gb, hernia; Additional info: Chest pain, back pain, abd pain TECHNIQUE: Imaging protocol: Computed tomographic angiography of the chest with intravenous contrast. 3D rendering (Not supervised by radiologist): MIP and/or 3D reconstructed images were created by the technologist. Radiation optimization: All CT scans at this facility use at least one of these dose optimization techniques: automated exposure control; mA and/or kV adjustment per patient size (includes targeted exams where dose is matched to clinical indication); or iterative reconstruction. Contrast material: OMNIPAQUE 350; Contrast volume: 95 ml; Contrast route: INTRAVENOUS (IV); COMPARISON: CTA Chest w Abd/Pel w* 09/06/2019 10:34 AM RADIATION DOSE METRICS: Total DLP (mGy-cm): 1585.64 FINDINGS: Pulmonary arteries: No filling defects in the pulmonary arteries to suggest pulmonary embolism. Aorta: Stable moderate atherosclerotic changes in the visualized arteries. No evidence for aortic aneurysm or aortic dissection. Lungs: Stable postsurgical changes consistent with a prior right upper lobectomy. Tracheobronchial structures are patent. Noncalcified nodules in the right upper lobe, left upper lobe, and left lower lobe are stable, the largest is in the right upper lobe and has has an average measurement 6 mm (series 4, image 32). No focal consolidation. No pulmonary edema. Pleural space: No pneumothorax. No pleural effusion. Heart: Stable mild enlargement of the heart. Stable calcification of the aortic valve. Stable extensive atherosclerotic calcification in the coronary arteries. Mediastinal space: No mediastinal hematoma. No pneumomediastinum. Lymph nodes: No lymphadenopathy. Stomach and bowel: Postsurgical changes suggesting a prior Bethany fundoplication. There is redemonstration of a small hiatal hernia, suggesting a slipped Bethany. Findings are stable. Bones/joints: Poststernotomy changes in the chest. Degenerative changes in the spine and shoulders. Bones are diffusely osteopenic. No lytic or sclerotic bony lesions. Soft tissues: No acute abnormality in the extrathoracic soft tissues. IMPRESSION: 1. No evidence for pulmonary embolism. 2. No acute cardiopulmonary process. 3. Noncalcified nodules in the right upper lobe, left upper lobe, and left lower lobe are stable, the largest is in the right upper lobe and has has an average measurement 6 mm.For patients at low risk (minimal or absent history of smoking and of other known risk factors), recommend CT Chest at 3-6 months, then consider CT Chest at 18-24 months. For patients at high risk (history of smoking or of other known risk factors), recommend CT Chest at 3-6 months, then CT Chest at 18-24 months. (Reference: Maggi) 4. Stable changes suggesting a prior slipped Bethany fundoplication. Recommend clinical correlation. 5. Incidental/nonacute findings are listed in the report. REFERENCES: Maggi Givens et al. Guidelines for Management of Incidental Pulmonary Nodules Detected on CT Images: From the Fleischner Society 2017. Radiology. 2017;284(1):228-243. PROCEDURE INFORMATION: Exam: CT Abdomen And Pelvis With Contrast Exam date and time: 10/21/2020 4:03 PM Age: 80 years old Clinical indication: Abdominal pain; Generalized; Chest pain; Type not specified; Prior surgery; Surgery type: Cabg, gb, hernia; Additional info: Chest pain, back pain, abd pain TECHNIQUE: Imaging protocol: Computed tomography of the abdomen and pelvis with intravenous contrast. Radiation optimization: All CT scans at this facility use at least one of these dose optimization techniques: automated exposure control; mA and/or kV adjustment per patient size (includes targeted exams where dose is matched to clinical indication); or iterative reconstruction. Contrast material: OMNIPAQUE 350; Contrast volume: 95 ml; Contrast route: INTRAVENOUS (IV); COMPARISON: CTA Chest w Abd/Pel w* 09/06/2019 10:34 AM RADIATION DOSE METRICS: Total DLP (mGy-cm): 1585.64 FINDINGS: Liver: The liver is unremarkable. Gallbladder and bile ducts: Stable findings consistent with a previous cholecystectomy. No biliary ductal dilatation. Pancreas: The pancreas is unremarkable. No pancreatic ductal dilatation. Spleen: The spleen is unremarkable. Adrenal glands: The right and left adrenal glands are unremarkable. Kidneys and ureters: The right and left kidneys are unremarkable. The right and left ureters are unremarkable. Stomach and bowel: Scattered diverticula in the sigmoid colon. No evidence for diverticulitis. Fluid within the small bowel without evidence of bowel wall thickening. Appendix: Appendix not definitely visualized. No inflammatory changes in the pericecal region however. Intraperitoneal space: No free intraperitoneal air. No ascites. No loculated fluid collections to suggest an abscess. Vasculature: Moderate atherosclerotic changes in the visualized arteries. No evidence for aortic aneurysm or aortic dissection. Hepatic veins, portal veins, splenic vein, and SMV are patent. Lymph nodes: No lymphadenopathy. Urinary bladder: Stable diffuse, moderate wall thickening of the bladder. Reproductive: Stable marked enlargement of the prostate gland with few prostate calcifications. Bones/joints: Bones are diffusely osteopenic. Moderate degenerative changes at both the right and left hips. Mild degenerative changes of the right and left sacroiliac joints. Multilevel degenerative changes of varying severity in the visualized spine. Patient has had interval L3, L4, and L5 laminectomies. Soft tissues: Bilateral fat containing inguinal hernias. No evidence for strangulation. No acute abnormality in the extra-abdominal soft tissues. CT/CT angio chest w abd pel w con IMPRESSION: 1. Fluid within the small bowel without evidence of bowel wall thickening. This may reflect viral gastroenteritis in the appropriate clinical situation. 2. Stable diffuse, moderate wall thickening of the bladder. In the correct clinical setting, this may suggest cystitis. Recommend correlation with laboratory findings. Alternatively, this may be secondary to chronic outlet obstruction. 3. Stable marked enlargement of the prostate gland with few prostate calcifications. 4. Scattered diverticula in the sigmoid colon. No evidence for diverticulitis. 5. Patient has had interval L3, L4, and L5 laminectomies. 6. Incidental/nonacute findings are listed in the report. Radiation Dose CTDIVOL = (mGy): DLP = 1585.64~1585.64 (mGy-cm)
[2020-10-21] MEDS: iohexol 350 mg/mL 100 mL Btl IV (16:57)
== END 2020-10-21 18:08 | disposition home or self-care (01) ==
PROVIDERS: Emergency Provider Family Medicine; PCP Family Medicine
DX: R07.9 Chest pain, unspecified (principal); R91.8 Other nonspecific abnormal finding of lung field; Z79.82 Long term (current) use of aspirin; I25.10 Atherosclerotic heart disease of native coronary artery without angina pectoris; Z95.1 Presence of aortocoronary bypass graft; I10 Essential (primary) hypertension; F17.210 Nicotine dependence, cigarettes, uncomplicated
CPT/HCPCS: 12345; 36415; 71275; 74177; 80053; 83690; 83880; 84484; 85025; 85378; 93005; 99281; 99282; 99283; Q9967

== ENCOUNTER 2020-11-27 10:06 | Outpatient (CLI) | payer MEDICARE, OTHER, SELFPAY ==
--- NOTE | 2020-11-27 10:11 | USCV_ITS ---
Anish Colon Age: 80 Gender: M : 1940 Exam Date: 11/27/2020 10:25 Ordering Phys: Brandon Lopez MD Technologist: Carolina Kevin Exam [place] [facility] [place] Indication: as BP: / HR: 69 Rhythm: Sinus Technical Quality: Adequate MEASUREMENTS (Male / Female) Normal Values 2D ECHO LV Diastolic Diameter PLAX 4.8 cm 4.2 - 5.9 / 3.9 - 5.3 cm LV Systolic Diameter PLAX 2.4 cm IVS Diastolic Thickness 1.1 cm 0.6 - 1.0 / 0.6 - 0.9 cm IVS Systolic Thickness 1.6 cm LVPW Diastolic Thickness 1.4 cm 0.6 - 1.0 / 0.6 - 0.9 cm LVPW Systolic Thickness 1.6 cm LVOT Diameter 2.0 cm LV Ejection Fraction 2D Teich 82.2 % LV Ejection Fraction MOD 2C 54.9 % LV Ejection Fraction 2C AL 58.1 % LA Diameter 3.6 cm LA Width 5.9 cm LA Height 3.8 cm RA Width 3.7 cm RA Height 4.3 cm Aorta at Sinotubular Diameter 3.2 cm M-MODE LV Diastolic Diameter MM 6.3 cm 4.2 - 5.9 / 3.9 - 5.3 cm LV Systolic Diameter MM 4.5 cm LV Ejection Fraction MM Teich 52.6 % IVS Diastolic Thickness MM 1.2 cm 0.6 - 1.0 / 0.6 - 0.9 cm IVS Systolic Thickness MM 1.6 cm LVPW Diastolic Thickness MM 1.3 cm 0.6 - 1.0 / 0.6 - 0.9 cm LVPW Systolic Thickness MM 1.8 cm Aortic Annulus Diameter 3.6 cm LA Ao Ratio MM 1.3 MV E Point Septal Separation 0.4 cm DOPPLER AV Peak Velocity 220.3 cm/s LVOT Peak Velocity 86.7 cm/s AV Area Cont Eq vti 1.4 cm squared AV Area Cont Eq pk 1.2 cm squared MV Area PHT 3.5 cm squared Mitral E to A Ratio 0.8 MV E' Velocity 49.5 cm/s Mitral E to MV E' Ratio 8.0 Mitral E to LV E' Lateral Ratio 6.2 Mitral E to LV E' Septal Ratio 11.5 TR Peak Velocity 257.5 cm/s TR Peak Gradient 26.5 mmHg TR Mean Velocity 174.5 cm/s TR Mean Gradient 13.8 mmHg TR Velocity Time Integral 59.6 cm TV Peak E Velocity 53.0 cm/s Right Atrial Pressure 3.0 mmHg Pulmonary Artery Systolic Pressu 29.5 mmHg PV Peak Velocity 112.0 cm/s RV Acceleration Time 0.2 s RV Ejection Time 0.4 s RV AcT/ET 0.5 FINDINGS Left Ventricle Normal left ventricular cavity size. No regional wall motion abnormalities. Left ventricular ejection fraction is estimated at 55 %. Grade I/IV diastolic dysfunction (abnormal relaxation filling pattern), normal to mildly elevated filling pressures. Right Ventricle The right ventricle is normal in size and function. Right Atrium Moderately increased right atrial size. Left Atrium Moderately increased left atrial size. Mitral Valve Moderately thickened mitral valve. No mitral valve stenosis. Moderate mitral valve regurgitation. Aortic Valve Severe aortic valve calcification. Moderate aortic valve stenosis, mean gradient 8.8 mmHg, NEETA 1.4 cm squared. Mild aortic valve regurgitation. Tricuspid Valve Mild tricuspid valve regurgitation. Pulmonic Valve Structurally normal pulmonic valve without significant stenosis. There is no pulmonic regurgitation. Pericardium Normal pericardium without effusion. Aorta Normal ascending aorta dimension. CONCLUSIONS 1-Normal left ventricular cavity size. No regional wall motion abnormalities. Left ventricular ejection fraction is estimated at 55 %. Grade I/IV diastolic dysfunction (abnormal relaxation filling pattern), normal to mildly elevated filling pressures. 2-Moderate biatrial enlargement 3-Severe aortic valve calcification. Moderate aortic valve stenosis, mean gradient 8.8 mmHg, NEETA 1.4 cm squared. Mild aortic valve regurgitation. 4-Moderately thickened mitral valve. No mitral valve stenosis. Moderate mitral valve regurgitation. 5-Mild tricuspid valve regurgitation. 6-There is no pericardial effusion. 10-Right atrial pressure is around 5 mm of mercury. 11-When compared to the prior echocardiogram dated 27 November 2019 there is worsening of aortic valve stenosis from 2.0 to 1.4 cm squared now, still in moderate category. Esha Orellana MD (Electronically Signed) Final Date: 27 November 2020 18:28 S
== END 2020-11-27 10:07 | disposition home or self-care (01) ==
LOC: RAD 10:08
PROVIDERS: PCP Family Medicine; Visit Provider Family Medicine
DX: I08.3 Combined rheumatic disorders of mitral, aortic and tricuspid valves (principal)
CPT/HCPCS: 81003; 93306

== ENCOUNTER 2021-10-01 10:17 | Outpatient (CLI) | payer MEDICARE, OTHER, SELFPAY ==
--- NOTE | 2021-10-01 13:30 | USCV_ITS ---
Anish Colon Age: 81 Gender: M : 1940 Exam Date: 10/01/2021 10:40 Ordering Phys: Yanely Fields Technologist: Amber Maguire [place] [facility] [place]: AO STENOSIS BP: 139 / 77 HR: 67 Rhythm: Atrial fibrillation Technical Quality: Adequate MEASUREMENTS (Male / Female) Normal Values 2D ECHO LV Diastolic Diameter PLAX 5.6 cm 4.2 - 5.9 / 3.9 - 5.3 cm LV Systolic Diameter PLAX 4.0 cm IVS Diastolic Thickness 1.8 cm 0.6 - 1.0 / 0.6 - 0.9 cm IVS Systolic Thickness 2.5 cm LVPW Diastolic Thickness 1.9 cm 0.6 - 1.0 / 0.6 - 0.9 cm LVPW Systolic Thickness 2.4 cm LVOT Diameter 2.0 cm LV Ejection Fraction 2D Teich 54.5 % LV Ejection Fraction MOD 2C 56.1 % LV Ejection Fraction 2C AL 57.9 % LA Diameter 4.1 cm LA Width 3.5 cm LA Height 6.2 cm RA Width 3.4 cm RA Height 5.4 cm Aorta at Sinotubular Diameter 2.5 cm M-MODE Aortic Annulus Diameter 3.3 cm LA Ao Ratio MM 1.1 MV E Point Septal Separation 0.9 cm DOPPLER AV Peak Velocity 293.7 cm/s LVOT Peak Velocity 116.3 cm/s AV Area Cont Eq vti 1.4 cm squared AV Area Cont Eq pk 1.3 cm squared MV Area PHT 3.4 cm squared MV E' Velocity 44.5 cm/s Mitral E to MV E' Ratio 8.6 Mitral E to LV E' Lateral Ratio 7.9 Mitral E to LV E' Septal Ratio 9.4 TR Peak Velocity 253.2 cm/s TR Peak Gradient 25.6 mmHg TR Mean Velocity 194.9 cm/s TR Mean Gradient 16.3 mmHg TR Velocity Time Integral 73.5 cm TV Peak E Velocity 45.0 cm/s PV Peak Velocity 110.7 cm/s RV Acceleration Time 0.1 s RV Ejection Time 0.4 s RV AcT/ET 0.1 FINDINGS Left Ventricle Normal left ventricular cavity size. Normal left ventricular systolic function. No regional wall motion abnormalities. Left ventricular ejection fraction is estimated at 60 %. Grade I/IV diastolic dysfunction (abnormal relaxation filling pattern), normal to mildly elevated filling pressures. Right Ventricle The right ventricle is normal in size and function. RVSP could not be calculated due to incomplete tricuspid regurgitation velocity profile. Right Atrium The right atrium is normal in size. Left Atrium The left atrium is normal in size. Mitral Valve Structurally normal mitral valve without significant stenosis or prolapse. There is no mitral regurgitation. Aortic Valve Moderate aortic valve calcification. Moderate aortic valve stenosis, mean gradient 14 mmHg, NEETA 1.4 cm squared. Trace aortic valve regurgitation. Tricuspid Valve Structurally normal tricuspid valve without significant stenosis or regurgitation. Pulmonic Valve Thickened pulmonic valve. Mild pulmonary valve regurgitation. Pericardium Normal pericardium without effusion. Aorta Normal ascending aorta dimension. CONCLUSIONS 1-Normal left ventricular cavity size. Normal left ventricular systolic function. No regional wall motion abnormalities. Left ventricular ejection fraction is estimated at 60 %. Grade I/IV diastolic dysfunction (abnormal relaxation filling pattern), normal to mildly elevated filling pressures. 2-Moderate aortic valve calcification. Moderate aortic valve stenosis, mean gradient 14 mmHg, NEETA 1.4 cm squared. Trace aortic valve regurgitation. 3- Thickened pulmonic valve. Mild pulmonary valve regurgitation. 4-There is no pericardial effusion. 5-The right ventricle is normal in size and function. RVSP could not be calculated due to incomplete tricuspid regurgitation velocity profile. 6-.No significant change since the prior echocardiogram study of 11/27/2020. Esha Orellana MD (Electronically Signed) Final Date: 02 October 2021 21:17 S
== END 2021-10-01 10:18 | disposition home or self-care (01) ==
LOC: RAD 10:19
PROVIDERS: PCP Family Medicine; Visit Provider Nurse Practitioner Family
DX: I35.0 Nonrheumatic aortic (valve) stenosis (principal); I48.91 Unspecified atrial fibrillation
CPT/HCPCS: 93306

== ENCOUNTER → 2022-01-07 12:45 | Outpatient (BNVA) | payer MEDICARE, OTHER, SELFPAY | PROVIDERS: PCP Family Medicine; Visit Provider Nurse Practitioner Family | DX: I35.0 Nonrheumatic aortic (valve) stenosis (principal); I25.10 Atherosclerotic heart disease of native coronary artery without angina pectoris; I10 Essential (primary) hypertension; Z87.891 Personal history of nicotine dependence | CPT/HCPCS: 99214 ==

== ENCOUNTER → 2022-03-21 09:58 | Outpatient (BNVA) | payer MEDICARE, OTHER, SELFPAY | PROVIDERS: PCP Family Medicine; Visit Provider Internal Medicine | DX: I25.10 Atherosclerotic heart disease of native coronary artery without angina pectoris (principal); I35.0 Nonrheumatic aortic (valve) stenosis; I49.9 Cardiac arrhythmia, unspecified; I10 Essential (primary) hypertension; F17.290 Nicotine dependence, other tobacco product, uncomplicated | CPT/HCPCS: 99214 ==

== ENCOUNTER 2022-04-01 11:36 | Outpatient (CLI) | payer MEDICARE, OTHER, SELFPAY ==
--- NOTE | 2022-04-01 12:00 | USCV_ITS ---
Anish Colon Age: 81 Gender: M : 1940 Exam Date: 04/01/2022 12:03 Ordering Phys: Yanely Fields Technologist: Exam Location: [facility] [place] Indication: moderate aortic stenosis BP: 147 / 89 HR: 43 Rhythm: Sinus Technical Quality: Adequate MEASUREMENTS (Male / Female) Normal Values 2D ECHO LV Diastolic Diameter PLAX 4.8 cm 4.2 - 5.9 / 3.9 - 5.3 cm LV Systolic Diameter PLAX 2.8 cm IVS Diastolic Thickness 1.2 cm 0.6 - 1.0 / 0.6 - 0.9 cm IVS Systolic Thickness 1.6 cm LVPW Diastolic Thickness 1.3 cm 0.6 - 1.0 / 0.6 - 0.9 cm LVPW Systolic Thickness 1.7 cm LVOT Diameter 2.0 cm LV Ejection Fraction 2D Teich 73.8 % LV Ejection Fraction MOD 2C 56.4 % LV Ejection Fraction 2C AL 56.4 % LA Diameter 4.6 cm Aorta at Sinotubular Diameter 2.6 cm M-MODE Aortic Annulus Diameter 2.9 cm LA Ao Ratio MM 1.5 MV E Point Septal Separation 1.0 cm DOPPLER AV Peak Velocity 233.3 cm/s LVOT Peak Velocity 98.0 cm/s AV Area Cont Eq vti 1.4 cm squared AV Area Cont Eq pk 1.3 cm squared MV Area PHT 5.0 cm squared Mitral E to A Ratio 0.9 MV E' Velocity 45.0 cm/s Mitral E to MV E' Ratio 7.7 Mitral E to LV E' Lateral Ratio 9.8 Mitral E to LV E' Septal Ratio 6.4 TR Peak Velocity 240.0 cm/s TR Peak Gradient 23.0 mmHg TV Peak E Velocity 95.0 cm/s Right Atrial Pressure 3.0 mmHg Pulmonary Artery Systolic Pressu 26.0 mmHg PV Peak Velocity 110.0 cm/s FINDINGS Left Ventricle Normal left ventricular size. LV systolic function is normal with EF of 55-60%. No regional wall motion abnormalities. Grade 1 diastolic dysfunction Right Ventricle The right ventricle is normal in size and function. Right Atrium The right atrium is normal in size. Left Atrium The left atrium is severely dilated Mitral Valve Structurally normal mitral valve without significant stenosis or prolapse. There is mild to moderate mitral regurgitation. Aortic Valve Aortic valve is thickened. Moderate aortic stenosis is seen with aortic valve area of 1.14cm2 and mean gradient across the aortic valve of 14mmHg. There is no aortic regurgitation. Tricuspid Valve Structurally normal tricuspid valve without significant stenosis or regurgitation. Pulmonic Valve Not well visualized Pericardium Normal pericardium without effusion. Aorta Normal ascending aorta dimension. IVC CONCLUSIONS LV systolic function is normal with EF of 55-60% Grade 1 diastolic dysfunction Left atrium is severely dilated Moderate mitral regurgitation Aortic valve is thickened. Moderate aortic stenosis with aortic valve area of 1.14cm2 and mean gradient across the arotic valve of 14mmHg. Compared to prior echocardiogram from 10/01/2021, patient has mild to moderate mitral regurgitation. Aortic stenosis has stayed stable. Richar Dobbins MD (Electronically Signed) Final Date: 05 April 2022 09:53 S
== END 2022-04-01 11:37 | disposition home or self-care (01) ==
LOC: RAD 11:38
PROVIDERS: PCP Family Medicine; Visit Provider Internal Medicine
DX: I35.0 Nonrheumatic aortic (valve) stenosis (principal); I34.0 Nonrheumatic mitral (valve) insufficiency
CPT/HCPCS: 93306

== ENCOUNTER → 2022-09-30 14:32 | Outpatient (BNVA) | payer MEDICARE, OTHER, SELFPAY | PROVIDERS: PCP Family Medicine; Visit Provider Internal Medicine | DX: I35.0 Nonrheumatic aortic (valve) stenosis (principal); I25.10 Atherosclerotic heart disease of native coronary artery without angina pectoris; I10 Essential (primary) hypertension; I49.8 Other specified cardiac arrhythmias; I49.9 Cardiac arrhythmia, unspecified; Z95.1 Presence of aortocoronary bypass graft; F17.290 Nicotine dependence, other tobacco product, uncomplicated | CPT/HCPCS: 99214 ==

== ENCOUNTER → 2023-03-10 09:02 | Outpatient (BNVA) | payer MEDICARE, OTHER, SELFPAY | PROVIDERS: PCP Family Medicine; Referring Provider Dermatology; Visit Provider Orthopaedic Surgery | DX: M48.061 Spinal stenosis, lumbar region without neurogenic claudication (principal); M48.07 Spinal stenosis, lumbosacral region; M51.36 Other intervertebral disc degeneration, lumbar region | CPT/HCPCS: 72110; 99204 ==

== ENCOUNTER 2023-03-18 12:09 | Outpatient (CLI) | payer MEDICARE, OTHER, SELFPAY ==
--- NOTE | 2023-03-18 12:15 | USCV_ITS ---
DarleneAnish Age: 82 Gender: M : 1940 Exam Date: 03/18/2023 12:37 Ordering Phys: Rihcar Dobbins M.D ([email or web address]) Technologist: CT Exam [place] [facility] [place] Indication: hx of cabg BP: 155 / 70 HR: 57 Rhythm: Sinus Technical Quality: Adequate MEASUREMENTS (Male / Female) Normal Values 2D ECHO LV Diastolic Diameter PLAX 6.3 cm 4.2 - 5.9 / 3.9 - 5.3 cm LV Systolic Diameter PLAX 4.2 cm LV Chamber Size 5.2 cm IVS Diastolic Thickness 1.4 cm 0.6 - 1.0 / 0.6 - 0.9 cm IVS Systolic Thickness 1.8 cm LVPW Diastolic Thickness 0.8 cm 0.6 - 1.0 / 0.6 - 0.9 cm LVPW Systolic Thickness 2.4 cm LVOT Diameter 2.0 cm LV Ejection Fraction 2D Teich 61.5 % LV Ejection Fraction MOD 2C 33.9 % LV Ejection Fraction 2C AL 35.8 % LA Diameter 6.3 cm LA Width 5.0 cm LA Height 7.5 cm RA Width 4.0 cm RA Height 5.1 cm Aorta at Sinotubular Diameter 2.5 cm M-MODE Aortic Annulus Diameter 3.3 cm LA Ao Ratio MM 2.0 MV E Point Septal Separation 1.7 cm DOPPLER AV Peak Velocity 284.3 cm/s LVOT Peak Velocity 98.0 cm/s AV Area Cont Eq vti 1.2 cm squared AV Area Cont Eq pk 1.1 cm squared MV Area PHT 3.5 cm squared Mitral E to A Ratio 0.9 MV E' Velocity 51.0 cm/s Mitral E to MV E' Ratio 9.7 Mitral E to LV E' Lateral Ratio 7.8 Mitral E to LV E' Septal Ratio 13.0 TR Peak Velocity 184.9 cm/s TR Peak Gradient 13.7 mmHg TR Mean Velocity 114.3 cm/s TR Mean Gradient 6.4 mmHg TR Velocity Time Integral 33.8 cm TV Peak E Velocity 102.0 cm/s Right Atrial Pressure 3.0 mmHg Pulmonary Artery Systolic Pressu 16.7 mmHg PV Peak Velocity 137.0 cm/s FINDINGS Left Ventricle Left ventricle is mildly dilated. LV systolic function is borderline low with EF of 50-55%. Mild hypokinesis of anterolateral wall. Right Ventricle Normal in size and function Right Atrium Normal in size Left Atrium Severely dilated Mitral Valve Structurally normal mitral valve. Moderate mitral regurgitation. Aortic Valve Aortic valve is thickened. Mild aortic stenosis with Aortic valve area of 1.2cm2 and mean gradient across aortic valve of 9mmHg Tricuspid Valve Mild tricuspid regurgitation. Insufficient TR jet to calculate RVSP. Pulmonic Valve Not well visualized Pericardium Normal Aorta Normal in size IVC Appears to be normal CONCLUSIONS LV systolic function is normal with EF of 50 to 55%. Mild hypokinesis of anterolateral wall. Severely dilated Moderate mitral regurgitation. Mild aortic stenosis Mild tricuspid regurgitation. Compared to prior echocardiogram from 2021, no significant changes are noted. Richar Dobbins MD (Electronically Signed) Final Date: 21 March 2023 12:22 S
== END 2023-03-18 12:10 | disposition home or self-care (01) ==
LOC: RAD 12:15
PROVIDERS: PCP Family Medicine; Visit Provider Internal Medicine
DX: I08.1 Rheumatic disorders of both mitral and tricuspid valves (principal); Z95.1 Presence of aortocoronary bypass graft
CPT/HCPCS: 93306

== ENCOUNTER → 2023-04-03 09:21 | Outpatient (BNVA) | payer MEDICARE, OTHER, SELFPAY | PROVIDERS: PCP Family Medicine; Visit Provider Internal Medicine | DX: I35.0 Nonrheumatic aortic (valve) stenosis (principal); I49.8 Other specified cardiac arrhythmias; I25.10 Atherosclerotic heart disease of native coronary artery without angina pectoris; I10 Essential (primary) hypertension; F17.200 Nicotine dependence, unspecified, uncomplicated | CPT/HCPCS: 99214 ==

== ENCOUNTER → 2023-04-20 08:37 | Outpatient (BNVA) | payer MEDICARE, OTHER, SELFPAY | PROVIDERS: PCP Family Medicine; Visit Provider Student in an Organized Health Care Education/Training Program | DX: M25.562 Pain in left knee (principal) | CPT/HCPCS: 20610; 73560; 73565; 99203; J3301; J3490 ==

== ENCOUNTER → 2023-11-18 12:20 | Outpatient (BNVA) | payer MEDICARE, OTHER, SELFPAY | PROVIDERS: PCP Family Medicine; Visit Provider Internal Medicine | DX: I35.0 Nonrheumatic aortic (valve) stenosis (principal); I25.10 Atherosclerotic heart disease of native coronary artery without angina pectoris; I10 Essential (primary) hypertension; I49.8 Other specified cardiac arrhythmias; F17.200 Nicotine dependence, unspecified, uncomplicated | CPT/HCPCS: 99214 ==

== ENCOUNTER → 2024-08-30 15:22 | Outpatient (BNVA) | payer MEDICARE, OTHER, SELFPAY | PROVIDERS: PCP Family Medicine; Visit Provider Physician Assistant | DX: M17.12 Unilateral primary osteoarthritis, left knee | CPT/HCPCS: 20610; 99213; J3301 ==

== ENCOUNTER → 2024-12-02 09:22 | Outpatient (BNVA) | payer MEDICARE, OTHER, SELFPAY | PROVIDERS: PCP Family Medicine; Visit Provider Physician Assistant | DX: M17.12 Unilateral primary osteoarthritis, left knee (principal); M53.3 Sacrococcygeal disorders, not elsewhere classified; M54.16 Radiculopathy, lumbar region | CPT/HCPCS: 99213 ==

== ENCOUNTER → 2024-12-29 14:39 | Outpatient (BNVA) | payer MEDICARE, OTHER, SELFPAY | PROVIDERS: PCP Family Medicine; Visit Provider Internal Medicine | DX: I35.0 Nonrheumatic aortic (valve) stenosis (principal); I49.9 Cardiac arrhythmia, unspecified; I25.10 Atherosclerotic heart disease of native coronary artery without angina pectoris; I10 Essential (primary) hypertension | CPT/HCPCS: 36415; 80048; 83880; 99214 ==

== ENCOUNTER → 2025-01-04 09:16 | Outpatient (BNVA) | payer MEDICARE, OTHER, SELFPAY | PROVIDERS: PCP Family Medicine; Visit Provider Physician Assistant | DX: M17.0 Bilateral primary osteoarthritis of knee (principal) | CPT/HCPCS: 20610; 99213; J3301; J9999 ==

== ENCOUNTER → 2025-02-02 14:12 | Outpatient (BNVA) | payer MEDICARE, OTHER, SELFPAY | PROVIDERS: PCP Family Medicine; Visit Provider Orthopaedic Surgery | DX: M54.9 Dorsalgia, unspecified (principal) | CPT/HCPCS: 99213 ==

== ENCOUNTER → 2025-03-29 08:15 | Outpatient (BNVA) | payer MEDICARE, OTHER, SELFPAY | PROVIDERS: PCP Family Medicine; Visit Provider Nurse Practitioner Family | DX: I87.2 Venous insufficiency (chronic) (peripheral) (principal); R60.0 Localized edema; Z08 Encounter for follow-up examination after completed treatment for malignant neoplasm; Z85.828 Personal history of other malignant neoplasm of skin; Z80.8 Family history of malignant neoplasm of other organs or systems | CPT/HCPCS: 99204 ==

== ENCOUNTER → 2025-06-16 08:42 | Outpatient (BNVA) | payer MEDICARE, OTHER, SELFPAY | PROVIDERS: PCP Family Medicine; Visit Provider Nurse Practitioner Family | DX: L21.8 Other seborrheic dermatitis (principal); I87.2 Venous insufficiency (chronic) (peripheral); R60.0 Localized edema; L82.1 Other seborrheic keratosis; L72.0 Epidermal cyst | CPT/HCPCS: 11102; 17000; 99214 ==

== ENCOUNTER → 2025-06-21 15:25 | Outpatient (BNVA) | payer MEDICARE, OTHER, SELFPAY | PROVIDERS: PCP Family Medicine; Visit Provider Podiatrist Foot & Ankle Surgery | DX: I73.9 Peripheral vascular disease, unspecified (principal); L60.3 Nail dystrophy | CPT/HCPCS: 11721; 99203 ==

== ENCOUNTER → 2025-07-18 08:41 | Outpatient (BNVA) | payer MEDICARE, OTHER, SELFPAY | PROVIDERS: PCP Family Medicine; Visit Provider Dermatology | DX: D48.5 Neoplasm of uncertain behavior of skin (principal); D22.0 Melanocytic nevi of lip; C44.319 Basal cell carcinoma of skin of other parts of face | CPT/HCPCS: 11102; 13132; 17311; 99213 ==

== ENCOUNTER → 2025-07-28 08:18 | Outpatient (BNVA) | payer MEDICARE, OTHER, SELFPAY | PROVIDERS: PCP Family Medicine; Visit Provider Dermatology | DX: D48.5 Neoplasm of uncertain behavior of skin (principal); D17.1 Benign lipomatous neoplasm of skin and subcutaneous tissue of trunk | CPT/HCPCS: 99213 ==

== ENCOUNTER → 2025-08-30 09:19 | Outpatient (BNVA) | payer MEDICARE, OTHER, SELFPAY | PROVIDERS: PCP Family Medicine; Visit Provider Dermatology | DX: D48.5 Neoplasm of uncertain behavior of skin (principal); D17.1 Benign lipomatous neoplasm of skin and subcutaneous tissue of trunk | CPT/HCPCS: 99213 ==

== ENCOUNTER → 2025-08-31 10:16 | Outpatient (BNVA) | payer MEDICARE, OTHER, SELFPAY | PROVIDERS: PCP Family Medicine; Visit Provider Podiatrist Foot & Ankle Surgery | DX: I73.9 Peripheral vascular disease, unspecified (principal); L60.3 Nail dystrophy | CPT/HCPCS: 11721 ==

== ENCOUNTER 2025-09-16 05:52 | Inpatient (IN) | payer MEDICARE, OTHER, SELFPAY ==
--- OUTSIDE RECORDS SUMMARY | 2025-09-06 02:40 | XMS_ITS ---
Author Organization [facility] Address [address] [place] [address] Care Team Providers Care Creative Recruiter Name Role Phone Brandon Lopez MD Primary Care Provider Cachorro Lara Unavailable [phone] REASON FOR VISIT r/s from 09/16/25 out of town Medications Medication SIG (Take, Route, Frequency, Duration) Notes Start Date End Date Status Omeprazole *Pick strength-f orm from [facility] for eRX* Unknown HYDROcodone-Acetamin ophen 7.5-325 MG Tablet 1 tablet Orally every 8 hours; Duration: 30 days As needed Do not exceed 3 per day Fill on 10/15/2025 - February fill as early as 10/10/2025 due to weekend and holiday fill 09/06/2025 11/14/2025 Active Omeprazole Omeprazole 10/25/2011 Unknown rivaroxaban 20 MG Oral Tablet rivaroxaban 20 MG Oral Tablet 07/14/2018 Unknown Omeprazole 40 MG Enteric Coated Capsule Omeprazole 40 MG Enteric Coated Capsule 07/14/2018 Unknown Russell 5-325 MG Tablet 1 tablet as needed Orally every 12 hrs; Duration: 15 days 07/03/2020 Unknown Russell 5-325 MG Tablet 1 tablet as needed Orally every 8 hrs; Duration: 10 days 05/30/2020 Unknown Russell 5-325 MG Tablet 1 tablet as needed Orally q12 h; Duration: 14 days 08/02/2020 Unknown Russell 5-325 MG Tablet 1 tablet as needed Orally every 6 hrs; Duration: 10 days 09/28/2020 Unknown Russell 5-325 MG Tablet 1 tablet as needed Orally every 6 hrs; Duration: 7 days 09/05/2020 Unknown Russell 5-325 MG Tablet 1 tablet as needed Orally q8h; Duration: 30 days dx: back pain with radiculopathy, s/p lumbar laminectomy 03/21/2020 Unknown Russell 5-325 MG Tablet 1 tablet as needed Orally every 6 hrs; Duration: 30 days 02/29/2020 Unknown Lisinopril 20 MG Oral Tablet Lisinopril 20 MG Oral Tablet 07/14/2018 Unknown Misc. Devices - Miscellaneous as directed WALKER 07/01/2022 Unknown Metoprolol Metoprolol 10/20/2011 Unknown Gabapentin 300 MG Capsule 1 capsule Orally Once a day; Duration: 90 days 05/22/2020 Unknown Gabapentin 300 MG Capsule 1 capsule Orally Once a day; Duration: 90 days 11/02/2020 Unknown Gabapentin 100 MG Capsule 1 capsule Orally twice a day; Duration: 90 days 11/02/2020 Unknown Lisinopril *Pick strength-f orm from [facility] for eRX* Unknown Lisinopril Lisinopril 03/18/2012 Unknown Ascorbic Acid 4.7 MG/ML / POLYETHYLENE GLYCOL 3350 100 MG/ML / Potassium Chloride 0.0136 MEQ/ML / Sodium Ascorbate 5.9 MG/ML / Sodium Chloride 0.046 MEQ/ML / sodium sulfate 7.5 MG/ML Oral Solution [MoviPrep] Ascorbic Acid 4.7 MG/ML / POLYETHYLENE GLYCOL 3350 100 MG/ML / Potassium Chloride 0.0136 MEQ/ML / Sodium Ascorbate 5.9 MG/ML / Sodium Chloride 0.046 MEQ/ML / sodium sulfate 7.5 MG/ML Oral Solution [MoviPrep] 07/14/2018 Unknown Amlodipine 5 MG Oral Tablet Amlodipine 5 MG Oral Tablet 07/14/2018 Unknown Aspirin Aspirin 03/18/2012 Unknown HYDROcodone-Acetamin ophen 7.5-325 MG Tablet 1 tablet Orally every 8 hours; Duration: 30 days As needed Do not exceed 3 per day Fill on 09/15/2025 09/06/2025 10/15/2025 Active Amlodipine *Reorder from [facility] for eRx and Interaction Alerts* Unknown 24 HR Metoprolol Tartrate 25 MG Extended Release Tablet 24 HR Metoprolol Tartrate 25 MG Extended Release Tablet 07/14/2018 Unknown Social History Social History Additional Details Category Social Info Options Details Migrated Social History Migrated Social History Alcoholic beverages? - Yes, Currently on disability? - No, Drug or substance abuse? - No, If yes, frequency of alcoholic beverages - 1 drink per day, Involved in any legal proceedings or lawsuits? - No, Marital Status - , Nonprescription drug use? - No, Participation in detoxification or rehabilitation - No, Smoking - No, Working currently? - No Section Notes: patient refused Problems Problem Type SNOMED Code ICD Code Onset Dates Problem Status W/U Status Risk Notes Problem Information temporarily unavailable Degeneration of intervertebral disc of lumbar region with discogenic back pain (M51.360) Active confirmed Vital Signs Height 69 in 09/06/2025 Weight 206 lbs 09/06/2025 BMI 30.42 kg/m2 09/06/2025 Height-cm 175.26 cm 09/06/2025 Weight-kg 93.44 kg 09/06/2025 Encounters Encounter Location Date Provider Diagnosis [facility] [place] [address] [place] [address], [place] [id number] 09/06/2025 Cachorro Brito Chronic pain syndrom e G89.4 ; Spondylosis without myelopathy or radiculopathy, lumbar region M47.816 ; 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 ; Radiculopathy, lumbosacral region M54.17 ; Sacroiliitis, not elsewhere classified M46.1 ; Postlaminectomy syndrome, not elsewhere classified M96.1 ; 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 He reports a return of pain in the right lumbar region, consistent with lumbar spondylosis. He would like to repeat the RFA on that side after the first of the year. We will schedule this here in the near future. He continues to find his current medication regimen relatively effective overall. We will continue his medications unchanged. His UDS and pill counts have been consistent with his treatment regimen. We will follow up thereafter and proceed accordingly. 09/06/2025 Spondylosis without myelopathy or radiculopathy, lumbar region (ICD-10 - M47.816) RECOMMEND REPEAT FACET MEDIAL BRANCH RHIZOTOMY, AT L4-5 L5-S1 LEVELS Repeat facet medial branch nerve rhizotomies are being recommended. The patient has pain of well-documented facet joint origin as evidenced by successful response to previous medial branch rhizotomies atL4-5 L5-V9emnime on 06/30/2025 (RT) with at least 60% relief for 6 months or greater as criterion standard. Patient experienced 50% or greater improvement in ability to perform previously painful movement without deterioration of the relief, as mentioned in previous records, compared to a baseline functional disability of 44% 6 months after rhizotomies. We will now proceed with facet rhizotomy using continuous radiofrequency denervation at a temperature of 90 degrees Celsius for 60 seconds. We also understand that we will either do these bilaterally or two weeks apart if doing different sides. The procedure and risks were discussed with the patient including but not limited to infection, bleeding, neurological complications, side effects from medications, no change in pain, worsening of pain, or even . We also discussed conservative options, surgical options, and medical management with patient as well. The patient indicates understanding and wishes to proceed with the recommended treatment approach. The patient was given written information about the procedure and all questions were answered. 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 Cachorro Brito. I, Dr. Cachorro Brito, personally performed the services described in this documentation, as scribed by Flakita Tavarez, and it is both accurate and complete. Plan Of Treatment Medication Medication Name Sig Start Date Stop Date Notes HYDROcodone-Acetaminophe n 7.5-325 MG Tablet 1 tablet Orally every 8 hours; Duration: 30 days 09/06/2025 11/14/2025 Fill on 10/15/2025 - May fill as early as 10/10/2025 due to weekend and holiday fill HYDROcodone-Acetaminophe n 7.5-325 MG Tablet 1 tablet Orally every 8 hours; Duration: 30 days 09/06/2025 10/15/2025 Fill on 09/15/2025 Treatment Notes Assessment Notes Chronic pain syndrome I had a nice visit with the patient today regarding his chronic pain issues. He reports a return of pain in the right lumbar region, consistent with lumbar spondylosis. He would like to repeat the RFA on that side after the first of the year. We will schedule this here in the near future. He continues to find his current medication regimen relatively effective overall. We will continue his medications unchanged. His UDS and pill counts have been consistent with his treatment regimen. We will follow up thereafter and proceed accordingly. Spondylosis without myelopat hy or radiculopathy, lumbar region RECOMMEND REPEAT FACET MEDIAL BRANCH RHIZOTOMY, AT L4-5 L5-S1 LEVELS Repeat facet medial branch nerve rhizotomies are being recommended. The patient has pain of well-documented facet joint origin as evidenced by successful response to previous medial branch rhizotomies atL4-5 L5-K8brmpwh on 06/30/2025 (RT) with at least 60% relief for 6 months or greater as criterion standard. Patient experienced 50% or greater improvement in ability to perform previously painful movement without deterioration of the relief, as mentioned in previous records, compared to a baseline functional disability of 44% 6 months after rhizotomies. We will now proceed with facet rhizotomy using continuous radiofrequency denervation at a temperature of 90 degrees Celsius for 60 seconds. We also understand that we will either do these bilaterally or two weeks apart if doing different sides. The procedure and risks were discussed with the patient including but not limited to infection, bleeding, neurological complications, side effects from medications, no change in pain, worsening of pain, or even . We also discussed conservative options, surgical options, and medical management with patient as well. The patient indicates understanding and wishes to proceed with the recommended treatment approach. The patient was given written information about the procedure and all questions were answered. Other I, Flakita Tavarez, am scribing for Dr. Cachorro Brito. I, Dr. Cachorro Brito, personally performed the services described in this documentation, as scribed by Flakita Tavarez, and it is both accurate and complete. Future Test Test Name Order Date Neurotomy Lumbar/Sacral, 2 or more level s - 67207, [id number] 09/09/2025 Next Appt Details Follow Up: after procedure, Reason: History and Physical Notes * HPI (History of Present Illness) Category Sub-Category Detail Notes Category Not es Pain Details Pain Location lower back, right foot Quality stabbing, numb Severity of pain at its worst 9/10 Severity of pain at its best 5/10 Severity of average pain 5/10 Severity of pain right now 5/10 Severity of pain on medication 12/26 When did you last take your pain medicin e 09/06/25 at 0800 Medication Details Do you have a lock b ox or safe place for medication away from minors and/or others? Yes Do you have any leftover pain medication building up at your house? No Do you understand that pain medication c an be addicting and can cause overdose? Yes Do you feel you can REDUCE the amount of medication you take today? No Opioid Assessment Tools Pill Count patient did not b ring Last Urine Drug Screen 07/13/25 Conf Today's Rapid Urine Drug Screen None [place] Prescription Monitoring Program [place] PDMP, found to be consistent with treatment history, reviewed today Treatment History Test undergone in the past 12/26/2024 MRI Voimqa1107/22/2022 MRI Lumbar 12/28/2024 GLORIA: 44% Past medication you have taken [place] 7.5 /325 #90 Treatments you have had 09/06/24 Left LM BR06/30/24 R LMBR02/16/23 LESI L5- S1012/08/22 Left LMBR11/24/2022 Right LMBR Examination Category Sub-Category Detail Notes Category Not es General Examination Constitutional: Patient appears to be appropriate looking for stated age. Patient is awake, alert and oriented to person, place and time with recent/ remote memory intact. in no acute distress noted. HEENT: Atraumatic, Normocephalic, Pupils grossly normal on inspection. Respiratory: Visual Inspection: breathing equal bilaterally, trachea midline. Cardiovascular: Cardiac rhythm is regular. Lumbar Spine: Inspection of the lumbar spine reveals loss of normal lordosis with no obvious scoliosis or asymmetry noted. Large midline scar. Palpation of the right lumbar facets produced notable pain. Range of Motion: Reduced ROM in all directions. + Right Kemps Lumbar spine: mild b/l paraspinal muscle tightness. Joints- Hips/ SI Joint: SI Joint Palpation : Mild SI tenderness b/l Neurology - Mental Status: Mood and affect appear to be normal. Neurology - Coordination: Patient has antalgic gait. Neurology - Straight Leg Raising: Right: 60 degrees and negative. Left: 60 degrees and negative. Neurology - Motor Strength: Left LE strength - Flexors: 4+/5. Right LE strength - Flexors: 4+/5. Left LE strength - Extensors: 4+/5. Right LE strength - Extensors: 4+/5. Left LE Tone: Normal. Right LE Tone: Normal. Neurology - Deep Tendon Reflexes: Left biceps (DTR): 2. Right biceps (DTR): 2. Left triceps (DTR): 2. Right triceps (DTR): 2. Left brachioradialis (DTR): 2. Right brachioradialis (DTR): 2. Left patellar (DTR): 2. Right patellar (DTR): 2. Left achilles (DTR): 1. Right achilles (DTR): 1 Intermitttent L4-L5 dysesthesias b/l Compression stockings in place Progress Notes * Anish RIDER WDOB: [birth year] (85 yo M)Acc No.[id number]:09/06/2025 Progress Notes Patient: Anish Sahni Provider: Benjamin Brito D.O. :1940 A ge:85 Y S ex:Male Date:09/06/2025 Address:[address] [place], [place] [id number] Pcp:Brandon Lopez MD Check In:09:33 AM BENZENE WASHER Subjective: * Chief Complaints: * R /s from 09/16/25 out of town * HPI: Nabeel judge Details: Pain Location l ower back, right foot. Quality s tabbing, numb. Severity of pain at its worst 10. Severity of pain at its best /10. Severity of pain on medication 10. Severity of average pain /10. Severity of pain right now /10. When did you last take your pain medicine 1 11/06/24 at 0800. M edication Details: Do you have a lock box or safe place for medication away from minors and/or others? Y es. Do you have any leftover pain medication building up at your house? N o. Do you understand that pain medication can be addicting and can cause overdose? Y es. Do you feel you can REDUCE the amount of medication you take today? N o. O pioid Assessment Tools: Pill Count p atient did not bring. Last Urine Drug Screen 0 07/13/25 Conf. Today's Rapid Urine Drug Screen N one. [place] Prescription Monitoring Program [place], found to be consistent with treatment history, reviewed today. T reatment History: Test undergone in the past 0 12/26/2024 MRI Lumbar 1 MRI Lumbar. Past medication you have taken H ydro 7.5/325 #90. Treatments you have had 1 11/06/23 Left LMBR R LMBR 0 02/16/23 LESI L5-S1 0 12/08/22 Left LMBR 0 11/24/2022 Right LMBR. 12/28/2024 GLORIA: 44%. Nabeel lopez Note: More sore on my right side. I don't know if it is the weather or not. I am going to stay for 4-5 days with my daughter. Patient returns to the clinic for a follow-up. He reports a flare-up of pain, worse on his right side. He is currently prescribed hydrocodone 7.5-325 mg #60 by our clinic. [place] [employer] reviewed and was found to be consistent with his current treatment regimen. * Medical History: Problem:Hernia of abdominal cavity (disorder) , Status :: Active Problem:Patient post percutaneous transluminal coronary angioplasty (finding) , Status :: Active Problem:Preinfarction syndrome (disorder) , Status :: Active Problem:Triple vessel disease of the heart (disorder) , Status :: Active Problem:Arthritis (disorder) , Status :: Active Problem:Campbell's esophagus (disorder) , Status :: Active Problem:Cutaneous eruption (morphologic abnormality) , Status :: Active Problem:Gastroesophageal reflux disease (disorder) , Status :: Active Problem:Heart disease (disorder) , Status :: Active Problem:Hyperlipidemia (disorder) , Status :: Active Problem:Hypertensive disorder, systemic arterial (disorder) , Status :: Active Problem:Obesity (disorder) , Status :: Active * Surgical History: L4-5 laminectomy 02/2020 L4-S1 foraminotomies 02/2020 Back surgery Cataract surgery Fundoplication Gallbladder surgery Hernia repair Open heart surgery prostate surgery Thoracotomy * Family History: M igrated Family History: : Cancer, D iabetes, H eart disease. patient refused. * Social History: M igrated Social History: M igrated Social History: Alcoholic beverages? - Yes, C urrently on disability? - No, D rug or substance abuse? - No, I f yes, frequency of alcoholic beverages - 1 drink per day, I nvolved in any legal proceedings or lawsuits? - No, M arital Status - , N onprescription drug use? - No, P articipation in detoxification or rehabilitation - No, S moking - No, W orking currently? - No. p atient refused. * Medications: T akingHYDROcodone-Acetaminophen 7.5-325 MG Tablet 1 tablet Orally every 8 hours As needed Do not exceed 3 per day, stop date 09/15/2025, Notes to Pharmacist: Fill on 08/16/2025Taking HYDROcodone-Acetaminophen 7.5-325 MG Tablet 1 tablet Orally every 8 hours As needed Do not exceed 3 per day, stop date 09/15/2025, Notes to Pharmacist: Fill on 08/16/[id number] HR Metoprolol Tartrate 25 MG Extended Release Tablet , Notes to Pharmacist: 24 HR Metoprolol Tartrate 25 MG Extended Release TabletAmlodipine , Notes to Pharmacist: *Reorder from [email or web address] for eRx and Interaction Alerts*Amlodipine 5 MG Oral Tablet , Notes to Pharmacist: Amlodipine 5 MG Oral TabletAscorbic Acid 4.7 MG/ML / POLYETHYLENE GLYCOL 3350 100 MG/ML / Potassium Chloride 0.0136 MEQ/ML / Sodium Ascorbate 5.9 MG/ML / Sodium Chloride 0.046 MEQ/ML / sodium sulfate 7.5 MG/ML Oral Solution [MoviPrep] , Notes to Pharmacist: Ascorbic Acid 4.7 MG/ML / POLYETHYLENE GLYCOL 3350 100 MG/ML / Potassium Chloride 0.0136 MEQ/ML / Sodium Ascorbate 5.9 MG/ML / Sodium Chloride 0.046 MEQ/ML / sodium sulfate 7.5 MG/ML Oral Solution [MoviPrep]Aspirin , Notes to Pharmacist: AspirinGabapentin 300 MG Capsule 1 capsule Orally Once a day Gabapentin 100 MG Capsule 1 capsule Orally twice a day Gabapentin 300 MG Capsule 1 capsule Orally Once a day Lisinopril , Notes to Pharmacist: *Pick strength-form from [email or web address] for eRX*Lisinopril , Notes to Pharmacist: LisinoprilLisinopril 20 MG Oral Tablet , Notes to Pharmacist: Lisinopril 20 MG Oral TabletMetoprolol , Notes to Pharmacist: MetoprololMisc. Devices - Miscellaneous as directed , Notes to Pharmacist: WALKERNorco 5-325 MG Tablet 1 tablet as needed Orally every 6 hrs Russell 5-325 MG Tablet 1 tablet as needed Orally q8h , Notes to Pharmacist: dx: back pain with radiculopathy, s/p lumbar laminectomyNorco 5-325 MG Tablet 1 tablet as needed Orally every 8 hrs Russell 5-325 MG Tablet 1 tablet as needed Orally every 12 hrs Russell 5-325 MG Tablet 1 tablet as needed Orally q12 h Russell 5-325 MG Tablet 1 tablet as needed Orally every 6 hrs Russell 5-325 MG Tablet 1 tablet as needed Orally every 6 hrs Omeprazole , Notes to Pharmacist: OmeprazoleOmeprazole , Notes to Pharmacist: *Pick strength-form from [facility] for eRX*Omeprazole 40 MG Enteric Coated Capsule , Notes to Pharmacist: Omeprazole 40 MG Enteric Coated Capsulerivaroxaban 20 MG Oral Tablet , Notes to Pharmacist: rivaroxaban 20 MG Oral TabletUnknown 24 HR Metoprolol Tartrate 25 MG Extended Release Tablet , Notes to Pharmacist: 24 HR Metoprolol Tartrate 25 MG Extended Release TabletUnknown Amlodipine , Notes to Pharmacist: *Reorder from [email or web address] for eRx and Interaction Alerts*Unknown Amlodipine 5 MG Oral Tablet , Notes to Pharmacist: Amlodipine 5 MG Oral TabletUnknown Ascorbic Acid 4.7 MG/ML / POLYETHYLENE GLYCOL 3350 100 MG/ML / Potassium Chloride 0.0136 MEQ/ML / Sodium Ascorbate 5.9 MG/ML / Sodium Chloride 0.046 MEQ/ML / sodium sulfate 7.5 MG/ML Oral Solution [MoviPrep] , Notes to Pharmacist: Ascorbic Acid 4.7 MG/ML / POLYETHYLENE GLYCOL 3350 100 MG/ML / Potassium Chloride 0.0136 MEQ/ML / Sodium Ascorbate 5.9 MG/ML / Sodium Chloride 0.046 MEQ/ML / sodium sulfate 7.5 MG/ML Oral Solution [MoviPrep]Unknown Aspirin , Notes to Pharmacist: AspirinUnknown Gabapentin 300 MG Capsule 1 capsule Orally Once a day Unknown Gabapentin 100 MG Capsule 1 capsule Orally twice a day Unknown Gabapentin 300 MG Capsule 1 capsule Orally Once a day Unknown Lisinopril , Notes to Pharmacist: *Pick strength-form from [facility] for eRX*Unknown Lisinopril , Notes to Pharmacist: LisinoprilUnknown Lisinopril 20 MG Oral Tablet , Notes to Pharmacist: Lisinopril 20 MG Oral TabletUnknown Metoprolol , Notes to Pharmacist: MetoprololUnknown Misc. Devices - Miscellaneous as directed , Notes to Pharmacist: WALKERUnknown Russell 5-325 MG Tablet 1 tablet as needed Orally every 6 hrs Unknown Russell 5-325 MG Tablet 1 tablet as needed Orally q8h , Notes to Pharmacist: dx: back pain with radiculopathy, s/p lumbar laminectomyUnknown Russell 5-325 MG Tablet 1 tablet as needed Orally every 8 hrs Unknown Russell 5-325 MG Tablet 1 tablet as needed Orally every 12 hrs Unknown Russell 5-325 MG Tablet 1 tablet as needed Orally q12 h Unknown Russell 5-325 MG Tablet 1 tablet as needed Orally every 6 hrs Unknown Russell 5-325 MG Tablet 1 tablet as needed Orally every 6 hrs Unknown Omeprazole , Notes to Pharmacist: OmeprazoleUnknown Omeprazole , Notes to Pharmacist: *Pick strength-form from [facility] for eRX*Unknown Omeprazole 40 MG Enteric Coated Capsule , Notes to Pharmacist: Omeprazole 40 MG Enteric Coated CapsuleUnknown rivaroxaban 20 MG Oral Tablet , Notes to Pharmacist: rivaroxaban 20 MG Oral Tablet Objective: * Vitals: H t: 69 in, Wt:206lbs, Wt-k.44 kg, BMI:30.42Index, Ht-cm: 175.26 cm. * P ast Orders: L ab:Urine Confirmation Panel (instrument) - [id number] (Order Date - 07/13/2025) (Collection Date & Time - 07/13/2025) Value Reference Range 6-Acetylmorphine 0 <6 - ng/mL 7-Aminoclonazepam 0 <60 - ng/mL Alprazolam 0 <60 - ng/mL Amphetamine 0 <75 - ng/mL aOH-Alprazolam 0 <60 - ng/mL Buprenorphine 0.0 <7.5 - ng/mL Norbuprenorphine 0.0 <37.5 - ng/mL Carisoprodol 0 <75 - ng/mL Codeine 0 <75 - ng/mL EDDP 0 <75 - ng/mL Fentanyl 0 <6 - ng/mL Hydrocodone 406 H <75 - ng/mL Hydromorphone 384 H <75 - ng/mL Lorazepam 0 <60 - ng/mL MDMA 0 <75 - ng/mL Meperidine 0.0 <37.5 - ng/mL Meprobamate 0 <75 - ng/mL Methamphetamine 0 <75 - ng/mL Methadone 0 <75 - ng/mL Morphine 0 <75 - ng/mL Nordiazepam 0 <60 - ng/mL Norfentanyl 0 <6 - ng/mL Normeperidine 0.0 <37.5 - ng/mL O-desmethyltramadol 0 <75 - ng/mL Oxazepam 0 <60 - ng/mL Oxycodone 0.0 <37.5 - ng/mL Oxymorphone 0 <75 - ng/mL Phencyclidine 0.0 <7.5 - ng/mL Tapentadol 0.0 <37.5 - ng/mL Temazepam 0 <60 - ng/mL Tramadol 0 <75 - ng/mL Norhydrocodone 688 H <75 - ng/mL Noroxycodone 0 <38 - ng/mL Pregabalin 0 <225 - ng/mL Gabapentin 0 <225 - ng/mL Benzoylecgonine 0.0 <37.5 - ng/mL 4-Hydroxy Xylazine 0 <25 - ng/mL * Examination: G eneral Examination: C onstitutional: Patient appears to be appropriate looking for stated age. Patient is awake, alert and oriented to person, place and time with recent/ remote memory intact. in no acute distress noted. HEENT: Atraumatic, Normocephalic, Pupils grossly normal on inspection. Respiratory: Visual Inspection: breathing equal bilaterally, trachea midline. Cardiovascular: Cardiac rhythm is regular. Lumbar Spine: Inspection of the lumbar spine reveals loss of normal lordosis with no obvious scoliosis or asymmetry noted. Large midline scar. Palpation of the right lumbar facets produced notable pain. Range of Motion: Reduced ROM in all directions. + Right Kemps Lumbar spine: mild b/l paraspinal muscle tightness. Joints- Hips/ SI Joint: SI Joint Palpation : Mild SI tenderness b/l Neurology - Mental Status: Mood and affect appear to be normal. Neurology - Coordination: Patient has antalgic gait. Neurology - Straight Leg Raising: Right: 60 degrees and negative. Left: 60 degrees and negative. Neurology - Motor Strength: Left LE strength - Flexors: 4+/5. Right LE strength - Flexors: 4+/5. Left LE strength - Extensors: 4+/5. Right LE strength - Extensors: 4+/5. Left LE Tone: Normal. Right LE Tone: Normal. Neurology - Deep Tendon Reflexes: Left biceps (DTR): 2. Right biceps (DTR): 2. Left triceps (DTR): 2. Right triceps (DTR): 2. Left brachioradialis (DTR): 2. Right brachioradialis (DTR): 2. Left patellar (DTR): 2. Right patellar (DTR): 2. Left achilles (DTR): 1. Right achilles (DTR): 1 Intermitttent L4-L5 dysesthesias b/l Compression stockings in place. Assessment: * Assessment: 1. C hronic pain syndrome - G89.4 (Primary) 2 . S pondylosis without myelopathy or radiculopathy, lumbar region - M47.816 3 . 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 R adiculopathy, lumbosacral region - M54.17 5 . S acroiliitis, not elsewhere classified - M46.1? 6. P ostlaminectomy syndrome, not elsewhere classified - M96.1 ?7. L day term (current) use of opiate analgesic - Z79.891 8 . O steoarthritis of knee, unspecified - M17.9 9 . U nspecified abnormalities of gait and mobility - R26.9 1 0. P eripheral vascular disease, unspecified - I73.9 ? Plan: * Treatment: 2. S pondylosis without myelopathy or radiculopathy, lumbar region Refill HYDROcodone-Acetaminophen Tablet, 7.5-325 MG, 1 tablet, Orally, every 8 hours As needed Do not exceed 3 per day, 30 days, 90 Tablet, Start Date: 09/06/2025, Stop Date: 10/15/2025, Refills 0, Notes to Pharmacist: Fill on 09/15/2025; R efill HYDROcodone-Acetaminophen Tablet, 7.5-325 MG, 1 tablet, Orally, every 8 hours As needed Do not exceed 3 per day, 30 days, 90 Tablet, Start Date: 09/06/2025, Stop Date: 11/14/2025, Refills 0, Notes to Pharmacist: Fill on 10/15/2025 - May fill as early as 10/10/2025 due to weekend and holiday fill. P rocedure: Neurotomy Lumbar/Sacral, 2 or more levels - 40882, 24204 (Ordered for 09/09/2025) (Order pending approval) Notes: RECOMMEND REPEAT FACET MEDIAL BRANCH RHIZOTOMY, AT L4-5 L5-S1 LEVELS Repeat facet medial branch nerve rhizotomies are being recommended. The patient has pain of well-documented facet joint origin as evidenced by successful response to previous medial branch rhizotomies atL4-5 L5-B4tvybkz on 06/30/2025 (RT) with at least 60% relief for 6 months or greater as criterion standard. Patient experienced 50% or greater improvement in ability to perform previously painful movement without deterioration of the relief, as mentioned in previous records, compared to a baseline functional disability of 44% 6 months after r hizotomies. We will now proceed with facet rhizotomy using continuous radiofrequency denervation at a temperature of 90 degrees Celsius for 60 seconds. We also understand that we will either do these bilaterally or two weeks apart if doing different sides. The procedure and risks were discussed with the patient including but not limited to infection, bleeding, neurological complications, side effects from medications, no change in pain, worsening of pain, or even . We also discussed conservative options, surgical options, and medical management with patient as well. The patient indicates understanding and wishes to proceed with the recommended treatment approach. The patient was given written information about the procedure and all questions were answered. 3. O thers Notes: IFlakita, am scribing for Dr. Cachorro Brito. I, Dr. Cachorro Brito, personally performed the services described in this documentation, as scribed by Flakita Tavarez, and it is both accurate and complete. * Follow Up: a fter procedure Billing Information: * Visit Code: 66293 Office Visit, Est Pt., Level 4. * Procedure Codes: Care Plan Details* * Electronic signature of Cachorro Brito DO on 09/16/2025 at 05:59 AM BENZENE WASHER Sign off status: Pending * Provider: Benjamin Brito D.O. Date: 11/06/2024 Generated for Luzma elena/Kateryna/Maribelitting on: 11/16/2024 05:59 AM BENZENE WASHER
--- OUTSIDE RECORDS SUMMARY | 2025-09-13 03:40 | XMS_ITS ---
Author Organization [facility] Address [address] [place] [address] Care Team Providers Care Apartment Coordinator Name Role Phone John STEVE, Brandon Primary Care Provider Cachorro Lara [facility] [phone] REASON FOR VISIT 2 mo RK Encounters Encounter Location Date Provider Diagnosis [facility] [address] [address] 09/13/2025 Cachorro Brito Plan Of Treatment No Information Progress Notes * Anish RIDER WDOB: [birth year] (85 yo M)Acc No.[id number]:09/13/2025 Progress Notes Patient: Anish Sahni Provider: Benjamin Brito D.O. :1940 A ge:85 Y S ex:Male Date:09/13/2025 Address:[address] [id number] Pcp:Brandon Lopez MD Subjective: * Chief Complaints: * 2 mo RK Care Plan Details* * Electronic signature of Cachorro Brito DO on 09/16/2025 at 05:59 AM ACADEMIC AFFAIRS ASSISTANT Sign off status: Pending * Provider: Benjamin Brito D.O. Date: 11/13/2024 Generated for Luzma elena/Kateryna/eTransmitting on: 11/16/2024 05:59 AM ACADEMIC AFFAIRS ASSISTANT
[2025-09-16] VITALS (64 sets, daily range): BP systolic 83–134; BP diastolic 49–83; PULSE 53–114; RESP 8–32; TEMP 35.7–36.7; O2SAT 87–100
--- NOTE | 2025-09-16 05:58 | XRR_ITS ---
PROCEDURE INFORMATION: Exam: XR Chest Exam date and time: 09/16/2025 6:10 AM Age: 85 years old Clinical indication: Chest pressure; Prior surgery; Surgery date: 6+ months; Surgery type: Cabg. Gb. Bethany fundoplication. C/O chest pain; Additional info: Cp TECHNIQUE: Imaging protocol: Radiologic exam of the chest. Views: 1 view. COMPARISON: CT angio chest w abd pel w con 10/21/2020 4:47 PM FINDINGS: Lungs: Mild interstitial prominence diffusely. Pleural spaces: Unremarkable. No pleural effusion. No pneumothorax. Heart/Mediastinum: See Vasculature finding. Vasculature: Moderate cardiomegaly and uncoiling of the thoracic aorta. Bones/joints: Deformity from old right rib fractures. Post median sternotomy. XR/XR chest 1V portable [id number] IMPRESSION: Stable chronic findings. No acute abnormality.
--- NOTE | 2025-09-16 05:58 | CTR_ITS ---
PROCEDURE INFORMATION: Exam: CTA Chest With Contrast Exam date and time: 09/16/2025 7:07 AM Age: 85 years old Clinical indication: Nausea and vomiting; Abdominal pain; Shortness of breath; Chest pressure; Prior surgery; Surgery date: 6+ months; Surgery type: Cabg. Gb. Bethany fundoplication. C/O chest and epigastric pain with SOB and n/v. Leukocytosis. ; Additional info: Cp/abd pain TECHNIQUE: Imaging protocol: Computed tomographic angiography of the chest with contrast. Exam focused on the arteries. 3D rendering (Not supervised by radiologist): MIP and/or 3D reconstructed images were created by the technologist. Radiation optimization: All CT scans at this facility use at least one of these dose optimization techniques: automated exposure control; mA and/or kV adjustment per patient size (includes targeted exams where dose is matched to clinical indication); or iterative reconstruction. Contrast material: OMNI 350; Contrast volume: 100 ml; Contrast route: INTRAVENOUS (IV); COMPARISON: CT angio chest w abd pel w con 10/21/2020 4:47 PM RADIATION DOSE METRICS: Total DLP (mGy-cm): 1381.86 FINDINGS: Pulmonary arteries: Normal. No pulmonary emboli. Aorta: 4.6 cm ascending thoracic aortic aneurysm. Lungs: Mild hypoventilatory changes. Pleural spaces: Unremarkable. No pneumothorax. No pleural effusion. Heart: Unremarkable. No cardiomegaly. No pericardial effusion. Coronary arteries: Coronary artery calcifications. Lymph nodes: Unremarkable. No enlarged lymph nodes. Diaphragm: Small diaphragmatic hernia. Gallbladder and biliary ducts: Cholecystectomy. Bones/joints: Unremarkable. No acute fracture. Soft tissues: Unremarkable. PROCEDURE INFORMATION: Exam: CT Abdomen And Pelvis With Contrast Exam date and time: 09/16/2025 7:07 AM Age: 85 years old Clinical indication: Nausea and vomiting; Abdominal pain; Shortness of breath; Chest pressure; Prior surgery; Surgery date: 6+ months; Surgery type: Cabg. Gb. Bethany fundoplication. C/O chest and epigastric pain with SOB and n/v. Leukocytosis. ; Additional info: Cp/abd pain TECHNIQUE: Imaging protocol: Computed tomography of the abdomen and pelvis with contrast. Radiation optimization: All CT scans at this facility use at least one of these dose optimization techniques: automated exposure control; mA and/or kV adjustment per patient size (includes targeted exams where dose is matched to clinical indication); or iterative reconstruction. Contrast material: OMNI 350; Contrast volume: 100 ml; Contrast route: INTRAVENOUS (IV); COMPARISON: CT angio chest w abd pel w con 09/06/2019 10:34 AM RADIATION DOSE METRICS: Total DLP (mGy-cm): 1381.86 FINDINGS: Liver: Hepatic steatosis. Gallbladder and biliary ducts: Cholecystectomy. Pancreas: Normal. No ductal dilation. Spleen: Normal. No splenomegaly. Adrenal glands: Normal. No mass. Kidneys and ureters: Normal. No hydronephrosis. Stomach and bowel: Unremarkable. No obstruction. No mucosal thickening. Appendix: No evidence of appendicitis. Intraperitoneal space: Unremarkable. No free air. No significant fluid collection. Vasculature: Unremarkable. No abdominal aortic aneurysm. Lymph nodes: Unremarkable. No enlarged lymph nodes. Urinary bladder: Unremarkable as visualized. Reproductive: Enlarged prostate 7 cm in diameter. Bones/joints: Unremarkable. No acute fracture. Soft tissues: Bilateral inguinal hernias containing only fat. CT/CT angio chest w abd pel w con IMPRESSION: 1. No acute intrathoracic pathology. 2. Aneurysmal dilatation of the ascending thoracic aorta. IMPRESSION: No acute findings.
--- OUTSIDE RECORDS SUMMARY | 2025-09-16 05:59 | XMS_ITS | Data Portability ---
Author Organization BENJAMIN [facility] Address [address] [place] [id number] Care Team Providers Care Tractor Operator Name Role Phone MARK LOPEZ Primary Care Provider [phone] Assessment Encounter Date Assessment Date Assessment LastModified by Organization Details LastModified Time 02/13/2025 02/13/2025 daily moisturization he needs to wear his compression socks. he has them [email or web address] Not available 02/13/2025 10:53:41 05/31/2025 05/31/2025 he reports bp is 130-135/70's on avg. [email or web address] Not available 05/31/2025 11:24:00 Plan of Treatment Reminders Order Date Submit Date Provider Last Modified By Organization Details Last Modified Time Details Appointments None recorded. Lab hemoglobin A1C/hemoglo bin total, QN, blood 2024 025 [facility], [address], [address], [place], [address], 09:26:07 CBC 2024 025 [facility], [address] [facility] [address], [address], [place], [address], 13:35:04 CMP, serum or plasma 2024 025 [facility], [address] [facility], [address], [place], [address], 08/06/202 5 10:14:46 HbA1c (hemoglobin A1c), blood 2024 025 [address] [place] [address] [facility], [address], [address], [place], [address], 5 08:06:05 lipid panel, serum [address] [facility], [address], [address], [place], [address], 5 08:06:05 urinalysis, complete 2024 025 [address] [place] [address] [facility], [address], [address], [place], [address], 5 08:06:04 TSH, serum or plasma 2024 025 [address] [place] [address] [facility], [address], [address], [place], [address], 5 08:06:04 BNP (B-type natriuretic peptide), serum or plasma 2024 025 [place] [address] [facility], [address] [place] [address], [address] [place], [address], 5 08:06:05 CMP, serum or plasma 2024 025 [facility], [address], [place], [address], 5 13:44:51 CBC 2024 025 [facility], [address], [address], [place], [address], 5 12:19:39 Referral cardiologis t referral - established but has had a change in condition 2024 025 [email or web address] 2 Richar Dobbins MD, [address] [place], [address], 5 14:40:44 Procedures None recorded. Surgeries None recorded. Imaging US, echocardiog pascale, transthorac ic, complete, w/ color flow 2024 025 [email or web address] 2 [facility] (Scheduling Orders), [address] [place], [address], 08:29:18 US, echocardiog pascale, transthorac ic, complete, w/ color flow 2024 025 [facility] (Scheduling Orders), [address] [place], [address], 5 16:55:27 Medication Orders triamcinolo ne acetonide 0.1 % topical cream 2024 025 [facility], [address] [place] [address], [address], 11:42:05 Patient TargetsNo targets recorded. Patient InstructionsNo instructions recorded. 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 Referral for Bi lateral lower leg edema established but has had a change in condition Referring Physician: Mark Lopez, Family Medicine, Encounter Date: 11/30/2024 Results Created Date Observation Date Name Description Value Unit Range Abnormal Flag Note LastModifiedBy Organization Detail LastModifiedTime 11/23/1911/30/2024 CBC WBC 7.4 x10 4.5-10 .5 Not Available [facility] [address] [facility] 1, [place], [address], 11/30/2024 12:19:39 11/23/1911/30/2024 CBC RBC 4.58 x10 4.30-5 .90 Not Available [facility] [address] [facility] 1, [place], [address], 11/30/2024 12:19:39 11/23/19 25 11/30/2024 CBC HGB 15.1 g/dL 13.5-1 8.0 Not Available [facility] [address] [facility] 1, [place], [address], 11/30/2024 12:19:39 11/23/19 25 11/30/2024 CBC HCT 43.7 % 35.0-6 0.0 Not Available [facility] [address] [facility] [facility] 1, [place], [address], 11/30/2024 12:19:39 11/23/1911/30/2024 CBC MCV 95.5 fL 80.0-9 9.9 Not Available [facility] [address] [facility] 1, [place], [address], 11/30/2024 12:19:39 11/23/19 25 11/30/2024 CBC MCH 33.1 pg 27.0-3 2.0 high Not Available [facility] [address] [facility] 1, [place], [address], 11/30/2024 12:19:39 11/23/19 25 11/30/2024 CBC MCHC 34.6 g/dL 32.0-3 6.0 Not Available [facility] [address] [facility] 1, [place], [address], 11/30/2024 12:19:39 11/23/19 25 11/30/2024 CBC RDW 13.4 % 11.5-1 4.5 Not Available [facility] [address] [facility] 1, [place], [address], 11/30/2024 12:19:39 11/23/19 25 11/30/2024 CBC plt 254.0 x10 150.0- 451.0 Not Available [facility] [address] [facility] 1, [place], [address], 11/30/2024 12:19:39 11/23/19 25 11/30/2024 CBC lymphocytes % 18.5 % 20.0-5 0.0 low Not Available [facility] [address] [facility] 1, [place], [address], 11/30/2024 12:19:39 11/23/19 25 11/30/2024 CBC granulcytes % 68.2 % 30.0-7 0.0 Not Available [facility] [address] [facility] 1, [place], [address], 11/30/2024 12:19:39 11/23/19 25 11/30/2024 CBC monocytes % 11.6 % 2.0-16 .0 Not Available [facility] [address] [facility], [place], [address], 11/30/2024 12:19:39 11/23/19 25 11/30/2024 CBC granulcytes# 5.1 x10 Not Gabriela ilable [facility] [address] [facility] 1, [place], [address], 11/30/2024 12:19:39 11/23/19 25 11/30/2024 CBC lymphocytes # 1.4 x10 Not Available [facility] [address] [facility] 1, [place], [address], 11/30/2024 12:19:39 11/23/19 25 11/30/2024 CBC monocytes # 0.9 x10 Not Avai lable [facility] [address] [facility] 1, [place], [address], 11/30/2024 12:19:39 11/23/19 25 11/30/2024 HBA1C hemaglobin A1C 6.0 4.2-6. 5 Not Available [facility] [address], [place], [address], 11/30/2024 12:20:45 11/23/19 25 11/30/2024 URINA LYSIS WITH MICRO color Yellow Not Available [facility] [address] [facility] [address], [place], [address], 11/30/2024 12:20:47 11/23/19 25 11/30/2024 URINA LYSIS WITH MICRO clarity Clear Not Available [facility] [address], [place], [address], 11/30/2024 12:20:47 11/23/19 25 11/30/2024 URINA LYSIS WITH MICRO glu Negati ve Not Available [facility] [address], [place], [address], 11/30/2024 12:20:47 11/23/19 25 11/30/2024 URINA LYSIS WITH MICRO bili Negati ve Not Available [facility] [address], [place], [address], 11/30/2024 12:20:47 11/23/19 25 11/30/2024 URINA LYSIS WITH MICRO ket Negati ve Not Available [facility] [address], [place], [address], 11/30/2024 12:20:47 11/23/19 25 11/30/2024 URINA LYSIS WITH MICRO S.g 1.025 1.005- 1.025 Not Available [facility] [address], [place], [address], 11/30/2024 12:20:47 11/23/19 25 11/30/2024 URINA LYSIS WITH MICRO pH 5.5 5.0-7. 0 Not Available [facility] [address], [place], [address], 11/30/2024 12:20:47 11/23/19 25 11/30/2024 URINA LYSIS WITH MICRO pro 1+ abnormal Not Available [facility] [address] [facility] [address], [place], [address], 11/30/2024 12:20:47 11/23/19 25 11/30/2024 URINA LYSIS WITH MICRO uro 0.2 E.U./d L Not Available [facility] [address], [place], [address], 11/30/2024 12:20:47 11/23/19 25 11/30/2024 URINA LYSIS WITH MICRO nit Negati ve Not Available [facility] [address] [facility] 1, [place], [address], 11/30/2024 12:20:47 11/23/19 25 11/30/2024 URINA LYSIS WITH MICRO blo Negati ve Not Available [facility] [address] [facility] 1, [place], [address], 11/30/2024 12:20:47 11/23/19 25 11/30/2024 URINA LYSIS WITH MICRO last Negati ve Not Available [facility] [address] [facility] 1, [place], [address], 11/30/2024 12:20:47 11/23/19 25 11/30/2024 URINA LYSIS WITH MICRO WBC 1-2 Not Available [facility] [address] [facility] 1, [place], [address], 11/30/2024 12:20:47 11/23/19 25 11/30/2024 URINA LYSIS WITH MICRO RBC 0-1 Not Available [facility] [address] [facility] 1, [place], [address], 11/30/2024 12:20:47 11/23/19 25 11/30/2024 URINA LYSIS WITH MICRO epi cells 0-1 Not Available [facility] [address] [facility] 1, [place], [address], 11/30/2024 12:20:47 11/23/19 25 11/30/2024 URINA LYSIS WITH MICRO bacteria 1+ mucus thread s abnormal Not Available [facility] [address] [facility] 1, [place], [address], 11/30/2024 12:20:47 11/23/19 25 11/30/2024 URINA LYSIS WITH MICRO other ng Not Available [facility] [address] [facility] 1, [place], [address], 11/30/2024 12:20:47 11/23/19 25 11/30/2024 CMP (MALE ) glucose 111.0 mg/dL 60.0-9 9.0 high Not Available [facility] [address] [facility] 1, [place], [address], 11/30/2024 13:44:51 11/23/19 25 11/30/2024 CMP (MALE ) BUN (blood urea nitrogen) 11.0 mg/dL 10.0-2 6.0 Not Available [facility] [address] [facility] 1, [place], [address], 11/30/2024 13:44:51 11/23/19 25 11/30/2024 CMP (MALE ) creatinine (serum) 0.8 mg/dL 0.4-1. 5 Not Available [facility] [address] [facility] 1, [place], [address], 11/30/2024 13:44:51 11/23/19 25 11/30/2024 CMP (MALE ) BUN/creatini ne ratio 13.75 ratio Not Available [facility] [address] [facility] 1, [place], [address], 11/30/2024 13:44:51 11/23/19 25 11/30/2024 CMP (MALE ) eGFR calculated 97.7 Not Available [facility] [address] [facility] 1, [place], [address], 11/30/2024 13:44:51 11/23/19 25 11/30/2024 CMP (MALE ) total protein 8.0 g/dL 6.0-8. 5 Not Available [facility] [address] [facility], [place], [address], 11/30/2024 13:44:51 11/23/19 25 11/30/2024 CMP (MALE ) total bilirubin 0.9 mg/dL 0.2-1. 3 Not Available [facility] [address] [facility], [place], [address], 11/30/2024 13:44:51 11/23/19 25 11/30/2024 CMP (MALE ) albumin 4.7 g/dL 3.5-5. 5 Not Available [facility] [address] [facility] Yana [facility] 1, [place], [address], 11/30/2024 13:44:51 11/23/19 25 11/30/2024 CMP (MALE ) globulin 3.3 calc Not Available [facility] [address] [facility] Yana [facility] 1, [place], [address], 11/30/2024 13:44:51 11/23/19 25 11/30/2024 CMP (MALE ) AST (SGOT) 35.0 U/L 0.0-46 .0 Not Available [facility] [address] [facility] Yana [facility] 1, [place], [address], 11/30/2024 13:44:51 11/23/19 25 11/30/2024 CMP (MALE ) altv (SGPT) 27.0 U/L 13.0-6 9.0 normal Not Available [facility] [address] [facility], [place], [address], 11/30/2024 13:44:51 11/23/19 25 11/30/2024 CMP (MALE ) A/G ratio 1.4 ratio Not Available [facility] [address] [facility] 1, [place], [address], 11/30/2024 13:44:51 11/23/19 25 11/30/2024 CMP (MALE ) ALP phos 87.0 U/L 30.0-1 40.0 normal Not Available [facility] [address] [facility] 1, [place], [address], 11/30/2024 13:44:51 11/23/19 25 11/30/2024 CMP (MALE ) calcium 9.4 mg/dL 8.4-10 .5 Not Available [facility] [facility] [address] [facility] 1, [place], [address], 11/30/2024 13:44:51 11/23/19 25 11/30/2024 CMP (MALE ) sodium 139.0 mmol/ L 136.0- 145.0 Not Available [facility] [address] [facility] 1, [place], [address], 11/30/2024 13:44:51 11/23/19 25 11/30/2024 CMP (MALE ) potassium 4.3 mmol/ L 3.5-5. 1 Not Available [facility] [facility] [address] [facility] 1, [place], [address], 11/30/2024 13:44:51 11/23/19 25 11/30/2024 CMP (MALE ) chloride 104.0 mmol/ L 98.0-1 10.0 normal Not Available [facility] [address] [facility] 1, [place], [address], 11/30/2024 13:44:51 11/23/19 25 11/30/2024 CMP (MALE ) C02 26.0 mmol/ L 22.0-3 1.0 Not Available [facility] [address] [facility] 1, [place], [address], 11/30/2024 13:44:51 11/23/19 25 11/30/2024 CMP (MALE ) anion gap 9.0 calc Not Available [facility] Deanna [facility] [address] [facility] 1, [place], [address], 11/30/2024 13:44:51 11/23/19 25 11/30/2024 CMP (MALE ) osmolality 287.2 calc Not Available [facility] [address] [facility], [place], [address], 11/30/2024 13:44:51 11/23/19 25 11/30/2024 LIPID PROFI LE (MALE ) cholesterol 258.0 mg/dL 0.0-20 0.0 high Not Available [facility] [address] [facility], [place], [address], 11/30/2024 13:44:53 11/23/19 25 11/30/2024 LIPID PROFI LE (MALE ) trig 149.0 mg/dL 0.0-15 0.0 Not Available [facility] [address] [facility] 1, [place], [address], 11/30/2024 13:44:53 11/23/19 25 11/30/2024 LIPID PROFI LE (MALE ) HDL - direct 80.0 mg/dL >40.0 Not Available [facility] [address] [facility], [place], [address], 11/30/2024 13:44:53 11/23/19 25 11/30/2024 LIPID PROFI LE (MALE ) VLDL - direct 29.8 mg/dL Not Available [facility] [address] [facility], [place], [address], 11/30/2024 13:44:53 11/23/19 25 11/30/2024 LIPID PROFI LE (MALE ) LDL - direct 148.2 mg/dL 0.0-13 0.0 high Not Available [facility] [address] [facility], [place], [address], 11/30/2024 13:44:53 11/30/19 25 11/30/2024 TSH TSH 3.82 uIU/m L 0.49-3 .82 Not Available [facility] [address] [facility] 1, [place], [address], 11/30/2024 13:52:55 11/30/19 25 12/01/2024 B TYPE NATRI URETI C PEPTI DE (BNP) B type natriuretic peptide (BNP) 146 pg/mL <100 high BNP level s incre ase with age in the gener al popul ation with the highe st value s seen in indiv idual s great er than 75 years of age. Refer ence: J. Am. Freeman. Cardi ol. 2002; 40:97 6-982 . Not Available [facility] [address] [place], [address], 12/01/2024 12:27:07 05/24/20 25 05/24/2025 HBA1C hemaglobin A1C 6.1 4.2-6. 5 Not Available [facility] [address] [facility] 1, [place], [address], 05/24/2025 09:26:07 05/24/20 25 05/24/2025 CMP (MALE ) glucose 115.0 mg/dL 60.0-9 9.0 high Not Available [facility] [address] [facility] 1, [place], [address], 05/24/2025 10:14:45 05/24/20 25 05/24/2025 CMP (MALE ) BUN (blood urea nitrogen) 14.0 mg/dL 10.0-2 6.0 Not Available [facility] [address] [facility] [address] [facility], [place], [address], 05/24/2025 10:14:45 05/24/20 25 05/24/2025 CMP (MALE ) creatinine (serum) 0.8 mg/dL 0.4-1. 5 Not Available [facility] [address] [facility] [address] [address], [place], [address], 05/24/2025 10:14:45 05/24/20 25 05/24/2025 CMP (MALE ) BUN/creatini ne ratio 17.50 ratio Not Available [facility] [address] [facility] [address] [address], [place], [address], 05/24/2025 10:14:45 05/24/20 25 05/24/2025 CMP (MALE ) eGFR calculated 97.7 Not Available [facility] [address] [facility] [address] [address], [place], [address], 05/24/2025 10:14:45 05/24/20 25 05/24/2025 CMP (MALE ) total protein 7.3 g/dL 6.0-8. 5 Not Available [facility] [address] [facility] [address] [address], [place], [address], 05/24/2025 10:14:45 05/24/20 25 05/24/2025 CMP (MALE ) total bilirubin 1.1 mg/dL 0.2-1. 3 Not Available [facility] [address] [facility] [address] [address], [place], [address], 05/24/2025 10:14:45 05/24/20 25 05/24/2025 CMP (MALE ) albumin 4.3 g/dL 3.5-5. 5 Not Available [facility] [address] [facility] 1, [place], [address], 05/24/2025 10:14:45 05/24/20 25 05/24/2025 CMP (MALE ) globulin 3.0 calc Not Available [facility] [address] [facility], [place], [address], 05/24/2025 10:14:45 05/24/20 25 05/24/2025 CMP (MALE ) AST (SGOT) 28.0 U/L 0.0-46 .0 Not Available [facility] [address] [facility] [address] [address], [place], [address], 05/24/2025 10:14:45 05/24/20 25 05/24/2025 CMP (MALE ) altv (SGPT) 20.0 U/L 13.0-6 9.0 normal Not Available [facility] [address] [facility] [address] [facility], [place], [address], 05/24/2025 10:14:45 05/24/20 25 05/24/2025 CMP (MALE ) A/G ratio 1.4 ratio Not Available [facility] [address] [address], [place], [address], 05/24/2025 10:14:45 05/24/20 25 05/24/2025 CMP (MALE ) ALP phos 80.0 U/L 30.0-1 40.0 normal Not Available [facility] [address] [facility] Yana [facility] 1, [place], [address], 05/24/2025 10:14:45 05/24/20 25 05/24/2025 CMP (MALE ) calcium 9.6 mg/dL 8.4-10 .5 Not Available [facility] [facility] [address] [facility] 1, [place], [address], 05/24/2025 10:14:45 05/24/20 25 05/24/2025 CMP (MALE ) sodium 141.0 mmol/ L 136.0- 145.0 Not Available [facility] [address] [facility], [place], [address], 05/24/2025 10:14:45 05/24/20 25 05/24/2025 CMP (MALE ) potassium 4.1 mmol/ L 3.5-5. 1 Not Available [facility] [address] [facility] 1, [place], [address], 05/24/2025 10:14:45 05/24/20 25 05/24/2025 CMP (MALE ) chloride 107.0 mmol/ L 98.0-1 10.0 normal Not Available [facility] [address] [facility] 1, [place], [address], 05/24/2025 10:14:45 05/24/20 25 05/24/2025 CMP (MALE ) C02 25.0 mmol/ L 22.0-3 1.0 Not Available [facility] [address] [facility], [place], [address], 05/24/2025 10:14:45 05/24/20 25 05/24/2025 CMP (MALE ) anion gap 9.0 calc Not Available [facility] [address] [facility] 1, [place], [address], 05/24/2025 10:14:45 05/24/20 25 05/24/2025 CMP (MALE ) osmolality 292.4 calc Not Available [facility] [facility] [address] [facility], [place], [address], 05/24/2025 10:14:45 05/24/20 25 05/24/2025 CBC WBC 5.9 x10 4.5-10 .5 Not Available [facility] [address] [facility] 1, [place], [address], 05/25/2025 13:35:04 05/24/20 25 05/24/2025 CBC RBC 4.70 x10 4.30-5 .90 Not Available [facility] [address] [facility] 1, [place], [address], 05/25/2025 13:35:04 05/24/20 25 05/24/2025 CBC HGB 14.8 g/dL 13.5-1 8.0 Not Available [facility] [address] [facility] 1, [place], [address], 05/25/2025 13:35:04 05/24/20 25 05/24/2025 CBC HCT 46.3 % 35.0-6 0.0 Not Available [facility] [address] [facility] 1, [place], [address], 05/25/2025 13:35:04 05/24/20 25 05/24/2025 CBC MCV 98.0 fL 80.0-9 9.9 Not Available [facility] [address] [facility] 1, [place], [address], 05/25/2025 13:35:04 05/24/20 25 05/24/2025 CBC MCH 31.3 pg 27.0-3 2.0 Not Available [facility] [address] [facility] 1, [place], [address], 05/25/2025 13:35:04 05/24/20 25 05/24/2025 CBC MCHC 32.0 g/dL 32.0-3 6.0 Not Available [facility] [address] [facility] 1, [place], [address], 05/25/2025 13:35:04 05/24/20 25 05/24/2025 CBC RDW 13.1 % 11.5-1 4.5 Not Available [facility] [address] [facility] 1, [place], [address], 05/25/2025 13:35:04 05/24/20 25 05/24/2025 CBC plt 273.0 x10 150.0- 451.0 Not Available [facility] [address] [facility] 1, [place], [address], 05/25/2025 13:35:04 05/24/20 25 05/24/2025 CBC lymphocytes % 31.9 % 20.0-5 0.0 Not Available [facility] [address] [facility] 1, [place], [address], 05/25/2025 13:35:04 05/24/20 25 05/24/2025 CBC granulcytes % 49.8 % 30.0-7 0.0 Not Available [facility] [address] [facility] 1, [place], [address], 05/25/2025 13:35:04 05/24/20 25 05/24/2025 CBC monocytes % 13.6 % 2.0-16 .0 Not Available [facility] [address] [facility] 1, [place], [address], 05/25/2025 13:35:04 05/24/20 25 05/24/2025 CBC granulcytes# 2.9 x10 Not Gabriela ilable [facility] [address] [facility] 1, [place], [address], 05/25/2025 13:35:04 05/24/20 25 05/24/2025 CBC lymphocytes # 1.9 x10 Not Available [facility] [address] [facility] 1, [place], [address], 05/25/2025 13:35:04 05/24/20 25 05/24/2025 CBC monocytes # 0.8 x10 Not [facility] [address] [facility] 1, [place], [address], 05/25/2025 13:35:04 Result Notes None recorded. Problems Name Problem SNOMED Code Status Onset Date Resolution Date Notes Provider Name and Address Organization Details Recorded Time Chronic obstructi ve pulmonary disease 50912187 Active 2021 [facility] 5 10:30:57 Hiatal hernia 99111537 Active 2021 [facility] 5 10:31:15 Basal cell carcinoma 8395293 Completed 202102/13/2025 basal cell carcinom a; 10/14/20 10:35AM by Sandra Moore LPN, Office Visit; Promoted ; acuity set as *; Aimee valdes [facility] 5 10:30:52 Irritable bowel syndrome 60142822 Active 2021 Aimee valdes [facility] 5 10:31:22 Aortic valve stenosis 92114267 Active 2021 Aimee valdes [facility] 5 10:30:47 Campbell's esophagus with esophagit is 924664728 Active 2022 SANDRA valdes [facility] 4 11:09:56 Lumbago with sciatica 056787822 Active 2022 Aimee valdes [facility] 5 10:31:55 Essential hypertens ion 44765816 Active 2022 SANDRA valdes [facility] 4 11:10:03 Hyperglyc emia 54632989 [facility] 10:31:18 Benign prostatic hyperplas ia 790668404 Active 2023 SANDRA MOORE lucio [facility] 4 11:10:24 Deep venous thrombosi s 330557097 Completed 202302/13/202504/2018 [facility] 10:31:03 Acid reflux 793710322 Active 2023 Aimee Bear [facility] 5 10:30:42 Edema 731665085 Active 2024 Aimee Bear [facility] 5 10:31:08 Stasis dermatiti s 12380930 [facility] 2024 [facility] 08:15:18 Problem Notes None recorded. Procedures Surgical History Date Name Laterality Status Provider Name and Address Organization Details Recorded Time 07/18/20 25 Mohs surgery completed SANDRA MOORE [facility] 07/24/2025 15:14:12 03/19/20 18 Prostatectomy completed SANDRA MOORE [facility] 11/02/2023 11:14:40 operation on spinal cord completed Aimee Bear [facility] 02/13/2025 10:23:51 Appendectomy completed SANDRA MOORE [facility] 11/02/2023 11:14:07 Cholecystectomy completed SANDRA MOORE [facility] 11/02/2023 11:14:47 Cabg vein three completed [facility] 11/02/2023 11:15:04 Bethany fundoplication completed [facility] 11/02/2023 11:15:10 Imaging Results None recorded. Procedure Notes None recorded. Medical Equipment None Reported. Allergies Allergen ID Allergen Name Allergen Category Reaction Reaction Severity Criticality Documentation Date Start Date Code Code System Note Provider Name and Address Organization Details Recorded Time 46753 codeine medicatio n rash Not available Not available 05/16/2023 2670 RxNorm SANDRA MOORE [facility] 4 11:08:56 85436 Bactrim medicatio n Not available Not available Not available 05/22/2023 97506 9 RxNorm Vicky Paul [facility] 3 09:01:09 843 Product containin g 3-hydroxy -3-methyl glutaryl- coenzyme A reductase inhibitor (product) medicatio n myalgias (muscle pain) Not available Not available 01/19/2023 07208 009 SNOMED Aimee Zhaooch [facility] 3 09:12:17 844 Plavix medicatio n rash Not available Not available 01/19/2023 27012 2 RxNorm Aimee Bear [facility] 3 09:12:33 845 Augmentin medicatio n rash Not available Not available 01/19/2023 29610 2 RxNorm Aimee Bear [facility] 3 09:12:46 846 oxycodone medicatio n rash Not available Not available 01/19/2023 7804 [facility] 09:[facility]04 Medications Name Sig Start Date Stop Date Status Note LastModified by Organization Details LastModified Time furosemid e 40 mg tablet Take 1 tablet every day by oral route for 30 days. active Not Available Not Available No t Available terbinafi ne HCl 1 % topical cream APPLY TO THE AFFECTED AREA(S) AND SURROUND ING AREAS OF SKIN TOPICALL Y ONCE A DAY 11/02 completed Not Available Not Available Not Available rabeprazo le 20 mg tablet,de layed release Take 1 tablet every day by oral route. 01/31 completed Not Available Not Available Not Available doxycycli ne hyclate 100 mg capsule take 1 capsule BY MOUTH TWICE DAILY FOR FIVE DAYS 08/03 completed Not Available Not Available Not Available ketoconaz ole 2 % shampoo lather onto SCALP and face two TO three times weekly, allow TO sit FOR FIVE minutes THEN RINSE active Not Available Not Available No t Available fluconazo le 150 mg tablet TAKE 1 TABLET BY MOUTH EVERY SEVEN DAYS 01/19 completed Not Available Not Available Not Available hydrocodo ne 5 mg-acetam inophen 325 mg tablet take 1/2 to 1 tablet BY MOUTH EVERY TWELVE HOURS NEEDED MAX OF 1&1/2 PER DAY 11/02 completed Not Available Not Available Not Available lisinopri l 20 mg tablet TAKE 1 TABLET BY MOUTH TWICE DAILY FOR 90 DAYS active Not Available Not Available No t Available amlodipin e 5 mg tablet TAKE 1 TABLET TWICE A DAY 2024 active Not Available Not Available Not Avai lable omeprazol e 40 mg capsule,d elayed release Take 1 capsule every day by oral route for 90 days. 07/12 completed Not Available Not Available Not Available tramadol 50 mg tablet TAKE 1 TABLET BY MOUTH EVERY TWELVE HOURS NEEDED 01/31 completed Not Available Not Available Not Available triamcino lone acetonide 0.1 % topical cream APPLY A THIN LAYER TO THE AFFECTED AREA(S) BY TOPICAL ROUTE 2 TIMES PER DAY 08/03 completed Not Available Not Available Not Available Nitro-Bid 2 % transderm al ointment 11/02 completed Not Available Not Available Not Available prednisol one acetate 1 % eye drops,brannon pension SHAKE LIQUID AND INSTILL 1 DROP IN LEFT EYE FOUR TIMES DAILY 01/19 completed Not Available Not Available Not Available hydrocodo ne 7.5 mg-acetam inophen 325 mg tablet TAKE 1 TABLET BY MOUTH EVERY 8 HOURS NEEDED DO not exceed THREE PER DAY active Not Available Not Available No t Available pantopraz ole 40 mg tablet,de layed release TAKE 1 TABLET BY MOUTH DAILY 01/19 completed Not Available Not Available Not Available triamcino lone acetonide 0.1 % topical ointment apply TO red/itch y areas ON lower legs TWICE DAILY NEEDED. not FOR USE ON face, groin or SKIN folds. USE no more THAN TWO weeks PER MONTH 05/31 completed Not Available Not Available Not Available nystatin 100,000 unit/gram topical cream APPLY TO THE AFFECTED AREA(S) TWICE DAILY 02/25 completed Not Available Not Available Not Available omeprazol e 20 mg capsule,d elayed release Take 1 capsule twice a day by oral route. active Not Available Not Available No t Available mupirocin 2 % topical ointment apply a small amount TO THE affected area THREE TIMES DAILY 02/13 completed Not Available Not Available Not Available furosemid e 20 mg tablet TAKE 1 TABLET BY MOUTH EVERY DAY 11/30 completed Not Available Not Available Not Available losartan 100 mg tablet TAKE 1 TABLET BY MOUTH EVERY DAY 01/19 completed Not Available Not Available Not Available omeprazol e 1 daily 11/02 completed Not Available Not Available Not Available Norvasc two times daily 11/02 completed 436; Recorded 01/17/20 22 9:31AM by Sandra Moore LPN (Authori zed through Mark Lopez MD), Annotati on/Adden dum; Mail Order Quantity : 180 Tablet; Mail Order Days: 90 Days; Refill Quantity : 180; Tablet; Not Available Not Available Not Available Nitrostat prn 11/02 completed 0; Recorded 10/14/20 22 10:36AM by Sandra Moore LPN, Office Visit; Not Available Not Available Not Available Vitamin D3 1000 units daily 01/31 completed Not Available Not Available Not Available rabeprazo le daily 11/02 completed Recorded 08/14/20 22 12:23PM by Mark Lopez MD, Office Visit; Mail Order Quantity : 90 Tablet; Mail Order Days: 90 Days; Refill Quantity : 90; Tablet; Not Available Not Available Not Available Probiotic daily 11/02 completed 0; Recorded 10/14/20 22 10:36AM by Sandra Moore LPN, Office Visit; Not Available Not Available Not Available Paxlovid 300 mg (150 mg x 2)-100 mg tablets in a dose pack take TWO tablets by MOUTH at THE same time in THE morning and take TWO tablets at THE same time in THE evening FOR FIVE DAYS as directed . 11/02 completed Not Available Not Available Not Available Paxlovid 150 mg-100 mg tablets in a dose pack (Moderate Renal Dose) Take 1 dose pk every day by oral route for 5 days. 11/02 completed Not Available Not Available Not Available Vitals Date Recorded Body height Body mass index (BMI) Body weight Body temperature Heart rate Oxygen saturation Systolic And Diastolic Provider Name and Address Organization Details Last Updated DateTime 5 166.37 cm 33.9 kg/m2 84287.6 2 g 97.7 [degF] 74 /min 94 % 150/82 mm[Hg] [facility] 5 11:15:29 Date Recorded Body height Body mass index (BMI) Body weight Body temperature Heart rate Oxygen saturation Systolic And Diastolic Provider Name and Address Organization Details Last Updated DateTime 5 166.37 cm 33.3 kg/m2 60067.2 5 g 97.9 [degF] 65 /min 97 % 140/74 mm[Hg] [facility] 5 10:25:38 Date Recorded Body height Body mass index (BMI) Body weight Oxygen saturation Heart rate Respiratory rate Body temperature Systolic And Diastolic Provider Name and Address Organization Details Last Updated DateTime 5 166.37 cm 32.8 kg/m2 62457.4 7 g 94 % 59 /min 18 /min 97.6 [degF] 158/76 mm[Hg] Torrie Xiao [facility] 5 11:04:45 Date Recorded Body height Body mass index (BMI) Body weight Body temperature Heart rate Oxygen saturation Systolic And Diastolic Provider Name and Address Organization Details Last Updated DateTime 5 166.37 cm 33.1 kg/m2 43391.6 6 g 97.6 [degF] 86 /min 93 % 142/82 mm[Hg] Aimee Bear [facility] 5 11:46:17 Social History Question Answer Notes LastModified by [employer] Details LastModified Time Tobacco Smoking Status Current Some Day Smoker cigars Aimee Bear [facility] 08/03/2025 11:43:22 When Did You Quit Smoking? 15+yearssince brianda 1980 Information not available 08/03/2025 Do You Or Have You Ever Used Marijuana? Former User Information not available 08/03/2025 What Was The Date Of Your Most Recent Tobacco Screening? 08/03/2025 Information not available 08/03/2025 At What Age Did You Start Smoking Tobacco? 14 Information not available 08/03/2025 Sex: Unknown Functional Status Question Answer Note LastModified by [employer] Details LastModified Time How many times per week do you consume alcohol? 5-7 times per week 7 days per week Information not available 08/03/2025 Do you use any illicit or recreational drugs? No [email or web address] Information not available 11/02/2023 Do you or have you ever used any other forms of tobacco or nicotine? No [email or web address] Information not available 11/02/2023 What is your level of alcohol consumption? Moderate Information not available 08/03/2025 Mental Status None recorded. Family History Relationship Description Onset Age of this Age Resolved Age Notes LastModified by Organization Details LastModified Time Brother Deep venous thrombosis [email or web address] Not available 10/19 11:12:23 Sister Deep venous thrombosis Not available 10/19 11:12:23 Sister Leukemia Not availab le 11/02/2023 11:12:56 Father Coronary atherosclero sis [email or web address] Not available 11/02 11:12:38 Paternal Grandfather Coronary atherosclero sis Not available 11/02 11:12:38 Mother Malignant melanoma [email or web address] Not available 11/02 11:12:49 Medical History No medical history recorded. Immunizations Vaccine Type Date Status Note Provider Nam e and Address Organization Details Recorded Time zoster recombinant 1 completed SANDRA valdes, [facility] 11/02/2023 11:08:32 Influenza, split virus, trivalent, preservative 1 completed SANDRA valdes, [facility] 11/02/2023 11:08:32 Pneumococcal conjugate PCV 13 6 completed SANDRA valdes, [facility] 11/02/2023 11:08:32 pneumococcal polysaccharide PPV23 1 completed SANDRA valdes, [facility] 11/02/2023 11:08:32 zoster recombinant 1 completed SANDRA valdes, [facility] 11/02/2023 11:08:32 Influenza, high-dose, quadrivalent, PF 1 completed SANDRA valdes, [facility] 11/02/2023 11:08:32 Influenza, high-dose, quadrivalent, PF 2 completed SANDRA MOORE null, [facility] 11/02/2023 11:08:32 COVID-19, mRNA, LNP-S, PF, 100 mcg/0.5mL dose or 50 mcg/0.25mL dose 1 completed SANDRA valdes, [facility] 11/02/2023 11:08:32 COVID-19, mRNA, LNP-S, PF, 100 mcg/0.5mL dose or 50 mcg/0.25mL dose 1 completed SANDRA MOORE null, [facility] 11/02/2023 11:08:32 COVID-19, mRNA, LNP-S, PF, 100 mcg/0.5mL dose or 50 mcg/0.25mL dose 2 completed SANDRA MOORE null, [facility] 11/02/2023 11:08:32 COVID-19, mRNA, LNP-S, PF, 100 mcg/0.5mL dose or 50 mcg/0.25mL dose 1 completed SANDRA MOORE null, [facility] 11/02/2023 11:08:32 COVID-19, mRNA, LNP-S, bivalent, PF, 50 mcg/0.5 mL or 25mcg/0.25 mL dose 2 completed SANDRA MOORE null, [facility] 11/02/2023 11:08:32 Tdap 9 completed SANDRA MOORE null, [facility] 11/02/2023 11:08:32 Influenza, high-dose, trivalent, PF 9 completed SANDRA MOORE null, [facility] 11/02/2023 11:08:32 Influenza, high-dose, trivalent, PF 8 completed SANDRA MOORE null, [facility] 11/02/2023 11:08:32 Influenza, high-dose, quadrivalent, PF 3 completed SANDRA MOORE null, [facility] 03/11/2024 10:45:56 COVID-19, mRNA, LNP-S, PF, 50 mcg/0.5 mL 3 completed SANDRA MOORE null, [facility] 03/11/2024 10:45:56 Influenza, high-dose, trivalent, PF 4 completed Not Available [facility] 08/03/2025 11:36:15 COVID-19, mRNA, LNP-S, PF, 50 mcg/0.5 mL 4 completed Not Available [facility] 08/03/2025 11:36:15 Influenza, adjuvanted, trivalent, PF 5 completed Not Available [facility] 08/03/2025 11:36:15 Past Encounters Encounter ID Performer Location Encounter Start Date Encounter Closed Date Diagnosis/Indication Diagnosis SNOMED-CT Code Diagnosis ICD10 Code Diagnosis IMO Codes Diagnosis Note [id number] Mark Lopez MD [facility] [address] [place] [address] [id number] 01/19/2023 09:21:25 01/20/2023 18:28:25 Adult health examination 449690583 Z00.01 ldl reduced 20 points with dietary [id number] stable at 6.3 Essential hypertension 64925815 I10 home bps at goalpulse at goal he will have an echo and see cardiology by march. 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 0811539794 0853394 I25.119 Chronic ob structive pulmonary disease 82755416 J44.9 Campbell's esophagus with esophagitis 148083813 K22.70 Lumbago with sciatica 20 1604482 M54.41 s/p dorsal rhizotomy has pain mgt followup in february Hyperglycemia 85944459 R 73.9 continue dietary controladv erse reactions with metformin nair snot desire medication tx Tinea cruris 241441847 B 35.6 [id number] Mark Lopez MD [facility] ([facility]) [address] [place] [address] [id number] 5 02/25/2023 10:38:47 02/25/2023 13:15:36 Effusion of joint of left knee 5470541428 92258 M25.462 will do xraysdiscu ssed possible aspiration /injection rice therapy he is monitoring his bp at home and it is much better than here today.he has no pedal edema however his a.m. pressures have gone up b/c he reduced his medication when he takes amlodipine and lisinopril bid his pressure is down around 100amlodip ine once daily lisinopril bidhe will call with progress [id number] Mark Lopez MD [facility] [address] [place] [address] [id number] 04/13/2023 09:15:05 04/13/2023 19:20:23 Effusion of joint of left knee 4590073944 13409 M25.462 will do xraysdiscu ssed possible aspiration /injection rice therapy he is monitoring his bp at home and it is much better than here today.he has no pedal edema however his a.m. pressures have gone up b/c he reduced his medication when he takes amlodipine and lisinopril bid his pressure is down around 100amlodip ine once daily lisinopril bidhe will call with progress he will keep apt with dr. medrano in 7 days.he will begin stretching and deep tissue massage. [id number] BELEN PARKER [facility] ([facility] [address] [place] [address] [id number] 5 05/22/2023 08:37:52 05/22/2023 13:38:51 Sore throat 750839956 J02.9 COVID-19 713186112 U07.1 Discussed risks and benefits of Paxlovid. Patient verbalized that he understand s this medication is still under emergency use authorizat ion. Will start Paxlovid today. Ran a drug interactio n check on patients daily medication s. Discussed with doctor integration assistant patients amlodipine and Paxlovid possible interactio n. Due to patient being on low dose of amlodipine , will not decrease amlodipine dose. However, spoke with patient about monitoring his BP at home. If the BP gets low, will need to decrease his amlodipine to half a dose until completion of Paxlovid. Can take tylenol as needed for pain. Encouraged to push fluids and quarantine until feeling better. If severe SOB or chest pain occurs, should go to ED. Can continue daily allergy medication s PRN. Patient verbalizes understand ing. [id number] Mark Lopez MD [facility] ([facility] [address] [place] [address] [id number] 11/02/2023 11:06:30 11/02/2023 12:14:07 Essential hypertension 87180007 I10 home bps at goalpulse at goal he will have an echo and see cardiology by march. Coronary arteriosclerosis 99392045 I25.121 [id number] Mark Lopez MD [facility] [address] [place] [address] [id number] 5 02/01/2024 09:24:38 02/01/2024 11:10:35 Chronic obstructive pulmonary disease 04662306 J44.9 Edema of l ower extremity 069534613 R60.0 his compressio n socks really helped when he wore them. [id number] Mark Lopez MD [facility] [address] [place] [address] [id number] 5 03/11/2024 10:35:27 03/11/2024 12:10:50 Tear of skin 947473627 T14.8XXA [id number] Mark Lopez MD [facility] [address] [place] [address] [id number] 11/30/2024 11:06:06 12/01/2024 10:38:07 Essential hypertension 24090363 I10 home bps at goalpulse at goal he will have an echo and see cardiology by march. Lumbago with sciatica 20 8556422 M54.41 s/p dorsal rhizotomy has pain mgt followup in february Bilateral lower leg edema 245401192 R60.0 amlodipine is about the only thing he perceives to tolerate for bp so even if it is causing some of his edema, i don't think we can realistica lly change it. Pain of ri ght knee joint 7379311940 99176 M25.561 debo's posno redness or warmthttp right lat joint line suspect meniscal injury. he will use ice and see ortho in 2 dayscompre ssion if tolerable Moderate a ortic valve stenosis 325875847 I35.0 Hyperglycemia 81030614 R 73.9 continue dietary controladv erse reactions with metformin nair snot desire medication tx [id number] Mark Lopez MD [facility] [address] [place] [address] [id number] 02/13/2025 10:13:40 02/13/2025 13:02:04 Stasis dermatitis 17116711 I87.2 785843 he uses his furosemide only intermitte ntly, unfortunat rosie. he is supposed from his heart to take it daily. i tried to move his compliance fwd. i addressed all his perceived barriers to care. he cancelled all cardiac testing. i convineed him to start with the echo. Aortic valve stenosis 60 017239 I35.0 [id number] Mark Lopez MD [facility] [address] [place] [address] [id number] 05/24/2025 08:04:21 05/26/2025 12:55:32 Hyperglycemia 71526988 R73.9 continue dietary controladv erse reactions with metformin nair snot desire medication tx Essential hypertension 34241356 I10 home bps at goalpulse at goal he will have an echo and see cardiology by march. [id number] Mark Lopez MD [facility] [address] [place] [address] [id number] 5 05/31/2025 10:40:45 05/31/2025 14:46:35 Essential hypertension 81981320 I10 home bps remain at goalpulse at goal Aortic valve stenosis 60 650961 I35.0 Stasis dermatitis 516873 05 I87.2 520625 he still uses his furosemide only intermitte ntly, unfortunat rosie. he is supposed from his heart to take it daily. i tried to move his compliance fwd. once again and once again i addressed all his perceived barriers to care. he cancelled all cardiac testing. i convinced him to start with the echo. [id number] Mark Lopez MD [facility] [address] [place] [address] [id number] 5 08/03/2025 11:34:48 08/07/2025 14:08:19 Subcutaneous hematoma 0747976 T14.8XXA 12973987 reassuranc e given. no pulsation it is not expanding. use warm compresses . Health Concerns Section Related Observation LastModified by Organization Detai ls LastModified Time None Recorded Concern Status LastModified by Organization Details LastModified Time None Recorded Advance Directives Directive None Recorded Payers Insurance Date Sequence Insurance Name Policy Number Policy [place] Covered Member ID [place] Member ID Guarantor Name 08/02/2025 1 MEDICARE [place]: [place]PS Anish Colon [id number] Anish Colon 11/30/2024 2 AFSA - ( SUPPLEMENT) Anish Colon [id number] Anish Colon 08/02/2025 [place] - [place] A - C-[employer] (MEDICARE) Anish Colon [id number] Anish Colon 08/08/2025 2 FOR LIFE () Anish Colon [id number] Anish Colon Notes Date Note Type Note Provider Name and Address Organization Details Recorded Time 11/30/2024 text/html Back pain radiating to his knees. Burning sensation from bilateral knees to ankles. BLE swelling. Pt felt a pop in his right knee yesterday and is now having pain in that knee. Pt wonders whether this has to do with recent rhizotomy procedures. he will see ortho in a few days for his knee in two days he is getting cortisone injections Mark Lopez MD [address] [place] [address], [phone], [facility] 11/30/2024 11:39:32 02/13/2025 text/html Pt has been having redness in BLE for almost 3 months. Pt would like to have this examined. He is still having back pain as well. He reports a redness in his legs. He would like to discuss if this could be related to his latest rhizotomy. I assured him it was not. Mark Lopez MD [address] [place] [address], [phone], [facility] 02/13/2025 10:55:49 05/31/2025 text/html Hypertension IM/FMReported by PatientHPIFor quality, patient reportshere for check-up. For severity, patient reportsnormal (<120/<80 mmhg). For onset/timing, patient reportsgradual onset. For context, patient reportsnone. For alleviating factors, patient reportsmedication. For self care, patient reportsnot under emotional stressandnon-smoker. 6 month f/u to review labslabs draw compression socks have really helped his edema. his he very thankful. Mark Lopez MD [address] [place] [address], [phone], [facility], Sam. 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 She had to go in twice to remove all of the cells. Pt states the second time she nicked an artery. He now has a lump on his forehead where the spot was removed. He would like to have it evaluated. Mark Lopez MD [address] [place] [address], [phone], [facility], [facility]. 08/03/2025 11:54:32
--- OUTSIDE RECORDS SUMMARY | 2025-09-16 05:59 | XMS_ITS | Clinical Summary ---
Author Organization [facility] Address [address] [place] [address] Care Team Providers Care Plow Shaker Name Role Phone Unavailable Primary Care Provider Unavailabl e Allergies Active Allergy Reactions Criticality Noted Date Comments Amoxicillin-Pot Clavulanate Rash Low 10/25/2013 Atorvastatin Other (See Comments) 10/25/2013 Weakness in legs Clopidogrel Rash Low 10/25/2013 Medications lisinopril (PRINIVIL) 20 mg tablet Take 20 mg by mouth daily. Active amLODIPine (NORVASC) 5 mg tablet Take 5 mg by mouth daily. Active metoprolol tartrate (LOPRESSOR) 12.5 mg Tablet Take 12.5 mg by mouth 2 times daily. Active HYDROcodone-acet aminophen (NORCO) 7.5-325 mg Tablet Take 1-2 Tabs by mouth every 4 hours as needed for Pain, Moderate. 20 Tab 0 11/10/2013 Active Active Problems Problem Noted Date Diagnosed Date Skin cancer 10/25/2013 Family History Medical History Relation Name Comments Allergic Rhinitis Father Arthritis-rheumatoid Father Heart Disease Father Cancer Mother Arthritis-osteo Sister Asthma Sister Cancer Sister Diabetes Sister Relation Name Status Comments Father Mother Sister Social History Tobacco Use Types Packs/Day Years Used Date Smoking Tobacco: Never Smokeless Tobacco: Never Alcohol Use Standard Drinks/Week Comments Yes 1.7 (1 standard drink = 0.6 oz p ure alcohol) socially Sex and Gender Information Value Date Recorded Sex Assigned at Not on file Legal Sex Male 10:27 AM [employer] Gender Identity Not on file Sexual Orientation Not on file Last Filed Vital Signs Vital Sign Reading Time Taken Comments Blood Pressure 150/76 11/16/2013 9:57 AM [employer] OPERATOR Pulse 74 10/25/2013 10:08 AM [employer] OPERATOR Temperature - - Respiratory Rate - - Oxygen Saturation - - Inhaled Oxygen Concentration - - Weight 87.1 kg (192 lb) 11/16/2013 9:57 AM [employer] COM[employer] OPERATOR Height 175.3 cm (5' 9 ) 11/16/2013 9:57 AM [employer] COM[employer] OPERATOR Body Mass Index 28.35 11/16/2013 9:57 AM [employer] COM[employer] OPERATOR Plan of Treatment Health Maintenance Due Date Last Done Comments DTAP/TDAP/TD VACCINES (1 - Tdap) 1958 PNEUMOCOCCAL VACCINE 50+ YEARS (1 of 1 - PCV) 06/07/19 89 ZOSTER VACCINE (1 of 2) 1989 RSV VACCINE (60+ or ) (1 - 1-dose 75+ series) 2014 INFLUENZA VACCINE (#1) 2025 Insurance MEDICARE PART A AND B [employer]
--- OUTSIDE RECORDS SUMMARY | 2025-09-16 05:59 | XMS_ITS | Patient Health Record ---
Author Organization [facility] Address [address] [place] [address] Care Team Providers Care Windows Phone Developer Name Role Phone John STEVE, Brandon Primary Care Provider Cachorro Lara Unavailable [phone] Fouzia Lemus Unavailable [phone] Allergies Allergen (clinical drug ingredient) Drug/Non Drug Allergy documented on EMR Reaction Allergy Type Onset Date Status Information temporarily unavailable Atorvastatin Calcium , Drug Allergy Active Information temporarily unavailable Augmentin , , , Drug Allergy Active Information temporarily unavailable Bactrim Unknown Drug Allergy Active Information temporarily unavailable Clopidogrel Bisulfate , , Drug Allergy Active Information temporarily unavailable Crestor (rosuvastatin) Unknown Drug Allergy Activ e Information temporarily unavailable LIPITOR Unknown Drug Allergy Active Information temporarily unavailable norvasc Unknown Drug Allergy Active Information temporarily unavailable Statins Unknown Drug Allergy Active Results Component Value Reference Range Flag Notes MRI Lumbar Spine w/o [id number] Reviewed date:01/02/2025 09:22:18 AM Interpretation: Performing Lab: Notes/Report: See Below For Report Technique: Sagittal and axial T1 and T2 and sagittal STIR images of Diagnosis Description: Spondylosis without myelopathy or radiculopathy, lumbar region Read See Below For Report MRI Lumbar Spine w/o [id number] Reviewed date:01/02/2025 09:22:22 AM Interpretation: Performing Lab: Notes/Report: [id number]&[email or web address] Schedule Confirmation Reviewed date:08/31/2025 10:35:08 AM Interpretation: Performing Lab: Notes/Report: MRI Lumbar Spine w/o Cont Schedule Confirmation Reviewed date:08/31/2025 10:35:08 AM Interpretation: Performing Lab: Notes/Report: MRI Lumbar Spine w/o Cont Urine Drug Screen (cup read) - [id number] Reviewed date:10/06/2024 11:37:21 AM Interpretation: Performing Lab: Notes/Report: OPI + Urine Drug Screen (cup read) - [id number] Reviewed date:05/18/2025 10:01:49 AM Interpretation: Performing Lab: Notes/Report: OPI + Urine Drug Screen (cup read) - [id number] Reviewed date:07/13/2025 08:06:34 AM Interpretation: Performing Lab: Notes/Report: OPI + Urine Drug Screen (cup read) - [id number] Reviewed date:03/08/2025 12:57:24 PM Interpretation: Performing Lab: Notes/Report: OPI Pos zzzUrine Drug Screen (confir mation by instrument) - [id number] Reviewed date:11/22/2024 01:59:31 PM Interpretation: Performing Lab: Notes/Report: zzzUrine Drug Screen (confir mation by instrument) - [id number] Reviewed date:10/13/2024 11:48:01 AM Interpretation: Performing Lab: Notes/Report: Urine Confirmation Panel (in strument) - [id number] Reviewed date:07/18/2025 12:36:03 PM Interpretation: Performing Lab: Notes/Report: 6-Acetylmorphine 0 <6 ng/mL N This lesly t was developed and its performance characteristics determined by [facility]. It has not been cleared or approved by the U.S. Food and Drug Administration. 7-Aminoclonazepam 0 <60 ng/mL N This te st was developed and its performance characteristics determined by [facility]. It has not been cleared or approved by the U.S. Food and Drug Administration. Alprazolam 0 <60 ng/mL N This test was developed and its performance characteristics determined by [facility]. It has not been cleared or approved by the U.S. Food and Drug Administration. Amphetamine 0 <75 ng/mL N This test was developed and its performance characteristics determined by [facility]. It has not been cleared or approved by the U.S. Food and Drug Administration. aOH-Alprazolam 0 <60 ng/mL N This test was developed and its performance characteristics determined by [facility]. It has not been cleared or approved by the U.S. Food and Drug Administration. Buprenorphine 0.0 <7.5 ng/mL N This test w as developed and its performance characteristics determined by [facility]. It has not been cleared or approved by the U.S. Food and Drug Administration. Norbuprenorphine 0.0 <37.5 ng/mL N This te st was developed and its performance characteristics determined by [facility]. It has not been cleared or approved by the U.S. Food and Drug Administration. Carisoprodol 0 <75 ng/mL N This test wa s developed and its performance characteristics determined by [facility]. It has not been cleared or approved by the U.S. Food and Drug Administration. Codeine 0 <75 ng/mL N This test was developed and its performance characteristics determined by [facility]. It has not been cleared or approved by the U.S. Food and Drug Administration. EDDP 0 <75 ng/mL N This test was developed and its performance characteristics determined by [facility]. It has not been cleared or approved by the U.S. Food and Drug Administration. Fentanyl 0 <6 ng/mL N This test was developed and its performance characteristics determined by [facility]. It has not been cleared or approved by the U.S. Food and Drug Administration. Hydrocodone 406 <75 ng/mL H This test was developed and its performance characteristics determined by [facility]. It has not been cleared or approved by the U.S. Food and Drug Administration. Hydromorphone 384 <75 ng/mL H This test w as developed and its performance characteristics determined by [facility]. It has not been cleared or approved by the U.S. Food and Drug Administration. Lorazepam 0 <60 ng/mL N This test was developed and its performance characteristics determined by [facility]. It has not been cleared or approved by the U.S. Food and Drug Administration. MDMA 0 <75 ng/mL N This test was developed and its performance characteristics determined by [facility]. It has not been cleared or approved by the U.S. Food and Drug Administration. Meperidine 0.0 <37.5 ng/mL N This test was developed and its performance characteristics determined by [facility]. It has not been cleared or approved by the U.S. Food and Drug Administration. Meprobamate 0 <75 ng/mL N This test was developed and its performance characteristics determined by [facility]. It has not been cleared or approved by the U.S. Food and Drug Administration. Methamphetamine 0 <75 ng/mL N This test was developed and its performance characteristics determined by [facility]. It has not been cleared or approved by the U.S. Food and Drug Administration. Methadone 0 <75 ng/mL N This test was developed and its performance characteristics determined by [facility]. It has not been cleared or approved by the U.S. Food and Drug Administration. Morphine 0 <75 ng/mL N This test was developed and its performance characteristics determined by [facility]. It has not been cleared or approved by the U.S. Food and Drug Administration. Nordiazepam 0 <60 ng/mL N This test was developed and its performance characteristics determined by [facility]. It has not been cleared or approved by the U.S. Food and Drug Administration. Norfentanyl 0 <6 ng/mL N This test was developed and its performance characteristics determined by [facility]. It has not been cleared or approved by the U.S. Food and Drug Administration. Normeperidine 0.0 <37.5 ng/mL N This test was developed and its performance characteristics determined by [facility]. It has not been cleared or approved by the U.S. Food and Drug Administration. O-desmethyltramadol 0 <75 ng/mL N This test was developed and its performance characteristics determined by [facility]. It has not been cleared or approved by the U.S. Food and Drug Administration. Oxazepam 0 <60 ng/mL N This test was developed and its performance characteristics determined by [facility]. It has not been cleared or approved by the U.S. Food and Drug Administration. Oxycodone 0.0 <37.5 ng/mL N This test was developed and its performance characteristics determined by [facility]. It has not been cleared or approved by the U.S. Food and Drug Administration. Oxymorphone 0 <75 ng/mL N This test was developed and its performance characteristics determined by [facility]. It has not been cleared or approved by the U.S. Food and Drug Administration. Phencyclidine 0.0 <7.5 ng/mL N This test w as developed and its performance characteristics determined by [facility]. It has not been cleared or approved by the U.S. Food and Drug Administration. Tapentadol 0.0 <37.5 ng/mL N This test was developed and its performance characteristics determined by [facility]. It has not been cleared or approved by the U.S. Food and Drug Administration. Temazepam 0 <60 ng/mL N This test was developed and its performance characteristics determined by [facility]. It has not been cleared or approved by the U.S. Food and Drug Administration. Tramadol 0 <75 ng/mL N This test was developed and its performance characteristics determined by [facility]. It has not been cleared or approved by the U.S. Food and Drug Administration. Norhydrocodone 688 <75 ng/mL H This test was developed and its performance characteristics determined by [facility]. It has not been cleared or approved by the U.S. Food and Drug Administration. Noroxycodone 0 <38 ng/mL N This test wa s developed and its performance characteristics determined by [facility]. It has not been cleared or approved by the U.S. Food and Drug Administration. Pregabalin 0 <225 ng/mL N This test was developed and its performance characteristics determined by [facility]. It has not been cleared or approved by the U.S. Food and Drug Administration. Gabapentin 0 <225 ng/mL N This test was developed and its performance characteristics determined by [facility]. It has not been cleared or approved by the U.S. Food and Drug Administration. Benzoylecgonine 0.0 <37.5 ng/mL N This lesly t was developed and its performance characteristics determined by [facility]. It has not been cleared or approved by the U.S. Food and Drug Administration. 4-Hydroxy Xylazine 0 <25 ng/mL N This t est was developed and its performance characteristics determined by [facility]. It has not been cleared or approved by the U.S. Food and Drug Administration. Urine Confirmation Panel (in strument) - [id number] Reviewed date:03/16/2025 03:40:55 PM Interpretation: Performing Lab: Notes/Report: 6-Acetylmorphine 0 <6 ng/mL N This lesly t was developed and its performance characteristics determined by [facility]. It has not been cleared or approved by the U.S. Food and Drug Administration. 7-Aminoclonazepam 0 <60 ng/mL N This te st was developed and its performance characteristics determined by [facility]. It has not been cleared or approved by the U.S. Food and Drug Administration. Alprazolam 0 <60 ng/mL N This test was developed and its performance characteristics determined by [facility]. It has not been cleared or approved by the U.S. Food and Drug Administration. Amphetamine 0 <75 ng/mL N This test was developed and its performance characteristics determined by [facility]. It has not been cleared or approved by the U.S. Food and Drug Administration. aOH-Alprazolam 0 <60 ng/mL N This test was developed and its performance characteristics determined by [facility]. It has not been cleared or approved by the U.S. Food and Drug Administration. Buprenorphine 0.0 <7.5 ng/mL N This test w as developed and its performance characteristics determined by [facility]. It has not been cleared or approved by the U.S. Food and Drug Administration. Norbuprenorphine 0.0 <37.5 ng/mL N This te st was developed and its performance characteristics determined by [facility]. It has not been cleared or approved by the U.S. Food and Drug Administration. Carisoprodol 0 <75 ng/mL N This test wa s developed and its performance characteristics determined by [facility]. It has not been cleared or approved by the U.S. Food and Drug Administration. Codeine 0 <75 ng/mL N This test was developed and its performance characteristics determined by [facility]. It has not been cleared or approved by the U.S. Food and Drug Administration. EDDP 0 <75 ng/mL N This test was developed and its performance characteristics determined by [facility]. It has not been cleared or approved by the U.S. Food and Drug Administration. Fentanyl 0 <6 ng/mL N This test was developed and its performance characteristics determined by [facility]. It has not been cleared or approved by the U.S. Food and Drug Administration. Hydrocodone 2172 <75 ng/mL H This test was developed and its performance characteristics determined by [facility]. It has not been cleared or approved by the U.S. Food and Drug Administration. Hydromorphone 995 <75 ng/mL H This test w as developed and its performance characteristics determined by [facility]. It has not been cleared or approved by the U.S. Food and Drug Administration. Lorazepam 0 <60 ng/mL N This test was developed and its performance characteristics determined by [facility]. It has not been cleared or approved by the U.S. Food and Drug Administration. MDMA 0 <75 ng/mL N This test was developed and its performance characteristics determined by [facility]. It has not been cleared or approved by the U.S. Food and Drug Administration. Meperidine 0.0 <37.5 ng/mL N This test was developed and its performance characteristics determined by [facility]. It has not been cleared or approved by the U.S. Food and Drug Administration. Meprobamate 31 <75 ng/mL N This test was developed and its performance characteristics determined by [facility]. It has not been cleared or approved by the U.S. Food and Drug Administration. Methamphetamine 10 <75 ng/mL N This test was developed and its performance characteristics determined by [facility]. It has not been cleared or approved by the U.S. Food and Drug Administration. Methadone 0 <75 ng/mL N This test was developed and its performance characteristics determined by [facility]. It has not been cleared or approved by the U.S. Food and Drug Administration. Morphine 0 <75 ng/mL N This test was developed and its performance characteristics determined by [facility]. It has not been cleared or approved by the U.S. Food and Drug Administration. Nordiazepam 0 <60 ng/mL N This test was developed and its performance characteristics determined by [facility]. It has not been cleared or approved by the U.S. Food and Drug Administration. Norfentanyl 0 <6 ng/mL N This test was developed and its performance characteristics determined by [facility]. It has not been cleared or approved by the U.S. Food and Drug Administration. Normeperidine 0.0 <37.5 ng/mL N This test was developed and its performance characteristics determined by [facility]. It has not been cleared or approved by the U.S. Food and Drug Administration. O-desmethyltramadol 0 <75 ng/mL N This test was developed and its performance characteristics determined by [facility]. It has not been cleared or approved by the U.S. Food and Drug Administration. Oxazepam 0 <60 ng/mL N This test was developed and its performance characteristics determined by [facility]. It has not been cleared or approved by the U.S. Food and Drug Administration. Oxycodone 0.0 <37.5 ng/mL N This test was developed and its performance characteristics determined by [facility]. It has not been cleared or approved by the U.S. Food and Drug Administration. Oxymorphone 0 <75 ng/mL N This test was developed and its performance characteristics determined by [facility]. It has not been cleared or approved by the U.S. Food and Drug Administration. Phencyclidine 0.0 <7.5 ng/mL N This test w as developed and its performance characteristics determined by [facility]. It has not been cleared or approved by the U.S. Food and Drug Administration. Tapentadol 0.0 <37.5 ng/mL N This test was developed and its performance characteristics determined by [facility]. It has not been cleared or approved by the U.S. Food and Drug Administration. Temazepam 0 <60 ng/mL N This test was developed and its performance characteristics determined by [facility]. It has not been cleared or approved by the U.S. Food and Drug Administration. Tramadol 8 <75 ng/mL N This test was developed and its performance characteristics determined by [facility]. It has not been cleared or approved by the U.S. Food and Drug Administration. Norhydrocodone 538 <75 ng/mL H This test was developed and its performance characteristics determined by [facility]. It has not been cleared or approved by the U.S. Food and Drug Administration. Noroxycodone 0 <38 ng/mL N This test wa s developed and its performance characteristics determined by [facility]. It has not been cleared or approved by the U.S. Food and Drug Administration. Pregabalin 0 <225 ng/mL N This test was developed and its performance characteristics determined by [facility]. It has not been cleared or approved by the U.S. Food and Drug Administration. Gabapentin 0 <225 ng/mL N This test was developed and its performance characteristics determined by [facility]. It has not been cleared or approved by the U.S. Food and Drug Administration. Benzoylecgonine 0.0 <37.5 ng/mL N This lesly t was developed and its performance characteristics determined by [facility]. It has not been cleared or approved by the U.S. Food and Drug Administration. 4-Hydroxy Xylazine 0 <25 ng/mL N This t est was developed and its performance characteristics determined by [facility]. It has not been cleared or approved by the U.S. Food and Drug Administration. Tox Results Reviewed date:03/16/2025 03:47:17 PM Interpretation: Performing Lab: Notes/Report: Tox Results Reviewed date:07/18/2025 01:13:48 PM Interpretation: Performing Lab: Notes/Report: Reason For Referral No Information Medications Medication SIG (Take, Route, Frequency, Duration) Notes Start Date End Date Status HYDROcodone-Acetamin ophen 7.5-325 MG Tablet 1 tablet Orally every 8 hours; Duration: 30 days As needed Do not exceed 3 per day Fill on 09/15/2025 09/06/2025 10/15/2025 Active HYDROcodone-Acetamin ophen 7.5-325 MG Tablet 1 tablet Orally every 8 hours; Duration: 30 days As needed Do not exceed 3 per day Fill on 10/15/2025 - May fill as early as 10/10/2025 due to weekend and holiday fill 09/06/2025 11/14/2025 Active Ascorbic Acid 4.7 MG/ML / POLYETHYLENE GLYCOL [...] Amlodipine 5 MG Oral Tablet 07/14/2018 Unknown Gabapentin 300 MG Capsule 1 capsule Orally Once a day; Duration: 90 days 05/22/2020 Unknown Aspirin Aspirin 03/18/2012 Unknown Gabapentin 300 MG Capsule 1 capsule Orally Once a day; Duration: 90 days 11/02/2020 Unknown Gabapentin 100 MG Capsule 1 capsule Orally twice a day; Duration: 90 days 11/02/2020 Unknown [place] 5-325 MG Tablet 1 tablet as needed Orally every 6 hrs; Duration: 10 days 09/28/2020 Unknown [place] 5-325 MG Tablet 1 tablet as needed Orally every 6 hrs; Duration: 7 days 09/05/2020 Unknown Omeprazole *Pick strength-f orm from [facility] for eRX* Unknown Omeprazole Omeprazole 10/25/2011 Unknown Amlodipine *Reorder from [facility] for eRx and Interaction Alerts* Unknown rivaroxaban 20 MG Oral Tablet rivaroxaban 20 MG Oral Tablet 07/14/2018 Unknown 24 HR Metoprolol Tartrate 25 MG Extended Release Tablet 24 HR Metoprolol Tartrate 25 MG Extended Release Tablet 07/14/2018 Unknown Omeprazole 40 MG Enteric Coated Capsule Omeprazole 40 MG Enteric Coated Capsule 07/14/2018 Unknown [place] 5-325 MG Tablet 1 tablet as needed Orally q8h; Duration: 30 days dx: back pain with radiculopathy, s/p lumbar laminectomy 03/21/2020 Unknown [place] 5-325 MG Tablet 1 tablet as needed Orally every 6 hrs; Duration: 30 days 02/29/2020 Unknown [place] 5-325 MG Tablet 1 tablet as needed Orally every 12 hrs; Duration: 15 days 07/03/2020 Unknown [place] 5-325 MG Tablet 1 tablet as needed Orally every 8 hrs; Duration: 10 days 05/30/2020 Unknown [place] 5-325 MG Tablet 1 tablet as needed Orally q12 h; Duration: 14 days 08/02/2020 Unknown Lisinopril *Pick strength-f orm from [facility] for eRX* Unknown Lisinopril 20 MG Oral Tablet Lisinopril 20 MG Oral Tablet 07/14/2018 Unknown Lisinopril Lisinopril 03/18/2012 Unknown Misc. Devices - Miscellaneous as directed WALKER 07/01/2022 Unknown Metoprolol Metoprolol 10/20/2011 Unknown Immunizations Vaccine Route Administration Date Status Comme nts Influenza (whole), CPT 50294 Inactive Unknown 08/04/2017 Administered Social History Social History Additional Details Category [...] currently? - No Section Notes: patient refused patient refused patient refused patient refused patient refused patient refused patient refused patient refused patient refused patient refused patient refused patient refused patient refused patient refused patient refused patient refused Problems Problem Type SNOMED Code ICD Code Onset Dates Problem Status W/U Status Risk Notes Problem Information temporarily unavailable Other chronic pain (G89.29) Active confirmed Problem Information temporarily unavailable Chronic pain syndrome (G89.4) Active confirmed Problem Information temporarily unavailable Peripheral vascular disease, unspecified (I73.9) Active confirmed Problem Information temporarily unavailable Osteoarthritis of knee, unspecified (M17.9) Active confirmed Problem Information temporarily unavailable Sacroiliitis, not elsewhere classified (M46.1) Active confirmed Problem Information temporarily unavailable Spondylosis without myelopathy or radiculopathy, lumbar region (M47.816) Active confirmed Problem Information temporarily unavailable Other intervertebral disc degeneration, 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 confirmed Problem Information temporarily unavailable Radiculopathy, lumbosacral region (M54.17) Active confirmed Problem Information temporarily unavailable Postlaminectomy syndrome, not elsewhere classified (M96.1) Active confirmed Problem Information temporarily unavailable Unspecified abnormalities of gait and mobility (R26.9) Active confirmed Problem Information temporarily unavailable 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) Active confirmed Problem Information temporarily unavailable Spondylolisthesis at L5-S1 level (M43.17) Active confirmed Problem Information temporarily unavailable Degeneration of intervertebral disc of lumbar region with discogenic back pain (M51.360) Active confirmed Problem Information temporarily unavailable Tachycardia, unspecified (785.0) Active confirmed [id number] 911- Problem Information temporarily unavailable Lumbar osteoarthritis (721.3) Active confirmed [id number] 911- Problem Information temporarily unavailable Aortic valve stenosis (424.1) Active confirmed [id number] 911- Problem Information temporarily unavailable BPH (600.00) Active confirmed [id number] 911- Problem Information temporarily unavailable Coronary artery disease (414.01) Active confirmed [id number] 911- Problem Information temporarily unavailable Essential hypertension (401.1) Active confirmed [id number] 911- Problem Information temporarily unavailable Coronary atherosclerosis of [place] coronary a (414.01) Active confirmed [id number] 6773- Problem Information temporarily unavailable 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) Problem resolved confirmed [id number] 911- Problem Information temporarily unavailable Irritable bowel syndrome (564.1) Problem resolved confirmed [id number] 911- Problem Information temporarily unavailable Palpitations (785.1) Problem resolved confirmed [id number] 911- Problem Information temporarily unavailable Diarrhea (787.91) Problem resolved confirmed Dhiraj-985 911- Problem Information temporarily unavailable Hiatal hernia (553.3) Problem resolved confirmed [id number] 911- Problem Information temporarily unavailable Rash (782.1) Problem resolved confirmed [id number] 911- Problem Information temporarily unavailable Hypercholesterolemia (272.0) Problem resolved confirmed [id number] 911- Problem Information temporarily unavailable Acute sinusitis (461.9) Problem resolved confirmed Dhiraj-985 911- Problem Information temporarily unavailable Other abnormal findings on blood examination (790.99) Problem resolved confirmed Dhiraj-985 911- Problem Information temporarily unavailable Generalized abdominal pain (789.07) Problem resolved confirmed Dhiraj-985 911- Problem Information temporarily unavailable TERENCE (300.02) Problem resolved confirmed Dhiraj-985 911- Problem Information temporarily unavailable Vaccination against other viral diseases, Influenza (V04.81) Problem resolved confirmed Dhiraj-985 911- Problem Information temporarily unavailable Cervical radiculopathy (723.4) Problem resolved confirmed Dhiraj-985 911- Problem Information temporarily unavailable Urinary tract infection (595.0) Problem resolved confirmed Dhiraj-985 911- Problem Information temporarily unavailable Bradycardia (427.89) Problem resolved confirmed Dhiraj-985 911- Problem Information temporarily unavailable History of noncompliance with medical treatment (V15.81) Problem resolved confirmed [facility]aj-985 911- Problem Information temporarily unavailable COPD (496) 016 Problem resolved confirmed [facility]aj-985 911- Problem Information temporarily unavailable External cerumen impaction (380.4) 018 Problem resolved confirmed [facility]aj-985 911- Problem Information temporarily unavailable Lipoma, unspecified site (214.9) 016 Problem resolved confirmed [facility] [place]-985 911- Vital Signs Height-cm 175.26 cm 09/06/2025 Weight-kg 93.44 kg 09/06/2025 Height 69 in 09/06/2025 Weight 206 lbs 09/06/2025 BMI 30.42 kg/m2 09/06/2025 Procedures Procedure Date Ordered Date Performed Result Body Sit e Epidural, Lumbar/Sacral (Cau florencia), w/ imaging guidance - 15134 11/29/2024 N/A Encounters Encounter Location Date Provider Diagnosis [facility] [place] [address] [place] [address] 09/06/2025 Cachorro Brito Chronic pain syndrom e G89.4 ; Spondylosis without myelopathy or radiculopathy, lumbar region M47.816 ; 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 ; Radiculopathy, lumbosacral region M54.17 ; Sacroiliitis, not elsewhere classified M46.1 ; Postlaminectomy syndrome, not elsewhere classified M96.1 ; USP (current) use of opiate analgesic Z79.891 ; Osteoarthritis of knee, unspecified M17.9 ; Unspecified abnormalities of gait and mobility R26.9 and Peripheral vascular disease, unspecified I73.9 [facility] [place] [address] [place] [address] 10/06/2024 Fouzia Lemus Chronic pain syndrom e G89.4 ; 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 ; Radiculopathy, lumbosacral region M54.17 ; Spondylosis without myelopathy or radiculopathy, lumbar region M47.816 ; Sacroiliitis, not elsewhere classified M46.1 ; Postlaminectomy syndrome, not elsewhere classified M96.1 ; Osteoarthritis of knee, unspecified M17.9 ; Peripheral vascular disease, unspecified I73.9 ; Unspecified abnormalities of gait and mobility R26.9 and USP (current) use of opiate analgesic Z79.891 [facility] [address] [address] 11/17/2024 Fouzia Allan Chronic pain syndrom e G89.4 ; 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 ; Radiculopathy, lumbosacral region M54.17 ; Spondylosis without myelopathy or radiculopathy, lumbar region M47.816 ; Sacroiliitis, not elsewhere classified M46.1 ; Postlaminectomy syndrome, not elsewhere classified M96.1 ; Osteoarthritis of knee, unspecified M17.9 ; Peripheral vascular disease, unspecified I73.9 ; Unspecified abnormalities of gait and mobility R26.9 and USP (current) use of opiate analgesic Z79.891 [facility] [address] [address] 12/14/2024 Cachorro Brito Chronic pain syndrom e G89.4 ; 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 ; Radiculopathy, lumbosacral region M54.17 ; Spondylosis without myelopathy or radiculopathy, lumbar region M47.816 ; Sacroiliitis, not elsewhere classified M46.1 ; Postlaminectomy syndrome, not elsewhere classified M96.1 ; Osteoarthritis of knee, unspecified M17.9 ; Peripheral vascular disease, unspecified I73.9 ; Unspecified abnormalities of gait and mobility R26.9 and USP (current) use of opiate analgesic Z79.891 [facility] [address] [address] 01/04/2025 Cachorro Brito Chronic pain syndrom e G89.4 ; 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 ; Radiculopathy, lumbosacral region M54.17 ; Spondylosis without myelopathy or radiculopathy, lumbar region M47.816 ; Sacroiliitis, not elsewhere classified M46.1 ; Postlaminectomy syndrome, not elsewhere classified M96.1 ; Osteoarthritis of knee, unspecified M17.9 ; Peripheral vascular disease, unspecified I73.9 ; Unspecified abnormalities of gait and mobility R26.9 and rat exterminator (current) use of opiate analgesic Z79.891 [facility] [address] [address] 03/08/2025 Cachorro Brito Chronic pain syndrom e G89.4 ; 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 ; Radiculopathy, lumbosacral region M54.17 ; Sacroiliitis, not elsewhere classified M46.1 ; Postlaminectomy syndrome, not elsewhere classified M96.1 ; Osteoarthritis of knee, unspecified M17.9 ; Peripheral vascular disease, unspecified I73.9 ; Unspecified abnormalities of gait and mobility R26.9 ; USP (current) use of opiate analgesic Z79.891 and Spondylosis without myelopathy or radiculopathy, lumbar region M47.816 [facility] [address] [address] 05/18/2025 Fouzia Lemus Chronic pain syndrom e G89.4 ; 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 ; Radiculopathy, lumbosacral region M54.17 ; Sacroiliitis, not elsewhere classified M46.1 ; Postlaminectomy syndrome, not elsewhere classified M96.1 ; Osteoarthritis of knee, unspecified M17.9 ; Unspecified abnormalities of gait and mobility R26.9 ; USP (current) use of opiate analgesic Z79.891 ; Spondylosis without myelopathy or radiculopathy, lumbar region M47.816 and Peripheral vascular disease, unspecified I73.9 [facility] [address] [address] 07/13/2025 Fouzia Lemus Chronic pain syndrom e G89.4 ; 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 [place] [address] 10/06/2024 Cachorro Abhit Spondylosis without myelopathy or radiculopathy, lumbar region M47.816 [facility] [place] [address] [place] [facility] [place] [address] 11/17/2024 Cachorro Anibalfft Spondylosis without myelopathy or radiculopathy, lumbar region M47.816 [facility] [address] [place] [place] [address] 11/28/2024 Cachorro Moet [facility] [place] [address] [place] [facility] [place] [address] 12/08/2024 Cachorro Barnettfft Spondylosis without myelopathy or radiculopathy, lumbar region M47.816 [facility] [place] [address] [place] [address] 12/14/2024 Cachorro Brito [facility] [place] [address] [place] [facility] [place] [address] 01/12/2025 Cachorro Barnettfft Radiculopathy, lumbosacral region M54.17 [facility] [place] [address] [place] [address] 03/23/2025 Cachorro Anibalfft Spondylosis without myelopathy or radiculopathy, lumbar region M47.816 [facility] [place] [address] [place] [address] 04/03/2025 Cachorro Anibalfft Spondylosis without myelopathy or radiculopathy, lumbar region M47.816 [facility] [place] [address] [place] [facility] [place] [address] 05/18/2025 Cachorro Brito [facility] [place] [address] [place] [facility] [place] [address] 07/13/2025 Cachorro Brito Spondylosis without myelopathy or radiculopathy, lumbar region M47.816 Assessments Encounter Date Diagnosis (ICD Code) Assessment Notes Treatment Notes Treatment Clinical Notes Section Notes 11/17/2024 Spondylosis without myelopathy or radiculopathy, lumbar region (ICD-10 - M47.816) 05/18/2025 Chronic pain syndrome (ICD-10 - G89.4) I had a nice discussion with the patient today regarding his chronic pain complaints. He continues with lower back pain as well as multiple joint pain. He defers any interventional procedures. He feels his medications working reasonably well and allows him to function better overall. He denies any changes in his health since we last seen him or any untoward side effects of the medication. I did discuss lifestyle modifications as well as a bowel regimen. He will continue his medication at present level and return to clinic in 2 months to monitor for treatment effectiveness and compliance 07/13/2025 Chronic pain syndrome (ICD-10 - G89.4) I had a nice discussion with the patient today regarding his chronic pain complaints. He continues with persisting at reasonably stable lower back pain as well as multiple joint pain. He states not much has changed the past couple of months. He states with the help of his medication he is able to function better overall and that it helps knock his pain level down to a tolerable level. He denies any changes in his health since we last seen him or any untoward side effects of the medication. He defers any interventional procedures or updated imaging. I did discuss lifestyle modifications as well as a bowel regimen. He will continue his medication at present level and return to clinic in 2 months to monitor for treatment effectiveness and compliance as well as for biannual appointment with Dr. Brito. The patient continues with chronic pain requiring treatment to help restore function and improve quality of life. Risks of opioid therapy as well as interaction of opioids with alcohol, illicit drugs, muscle relaxers, and other sedative medications are reviewed briefly with patient again today. The patient has trialed all other reasonable treatment options and uses the medication to alleviate pain in order to remain active and rest with less pain. No clinically relevant medication side effects are noted. Last UDS and [employer]CH[employer]IC reviewed today. Patient is advised that best long-term goals include increased activity, core strengthening, proper weight management, coping strategies, avoidance of painful triggers, and targeted interventional therapy. We will see the patient for routine follow up in accordance with all clinic policies. We did remind patient today of current guidelines to decrease opioid when possible. We will continue to stress nonopioid treatment. RECOMMEND URINE TESTING TODAY Urine drug screening will be performed today to monitor compliance with opioid therapy or to serve as a baseline screen for a patient who may be a candidate for opioid therapy in the future, pending UDS results. We will monitor with in-office testing (rapid testing) today and review the results prior to dispensing prescription. All positive results will be sent for quantitative analysis to ensure accuracy and quantify amounts. Any expected positive results that return negative will also be sent for quantitative analysis. Any questionable read or any medication we cannot test for in the office confidently will be sent for quantitative analysis, as well. Patient has been made aware of this policy and agrees to abide by our urine testing policy. 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 It sounds like he has the edema under control, and part of his lower extremity issues were secondary to venous stasis dermatitis. He's using compression stockings now, and moisturizing lotion, and says he's doing significantly better. Otherwise, he seems to be stable on his medications, so we will continue those unchanged. We did speak about SI joint injection and an epidural, since it's been a couple years. He would like to hold off now, so we will see him back in about 2 months and proceed accordingly. 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 03/23/2025 Spondylosis without myelopathy or radiculopathy, lumbar region (ICD-10 - M47.816) 01/12/2025 Radiculopathy, lumbosacral region (ICD-10 - M54.17) 01/04/2025 Chronic pain syndrome (ICD-10 - G89.4) I had a nice visit with the patient today regarding his chronic pain issues. Overall he says not a great deal has changed. He continues to struggle with the edema in his lower extremities and he does have appointments with cardiology upcoming and they are planning to do another stress test. I would not be at all surprised if they identify some pathology that needs to be addressed, which would account for his edema. We reviewed his MRI which did not show any new pathology which would account for his symptoms. We will basically just continue his medications and plan to see him back in about 8 weeks to reevaluate. Hopefully at that point we will have a better picture on his edema and what is contributing to his symptoms. 12/14/2024 Chronic pain syndrome (ICD-10 - G89.4) I had a nice visit with the patient today regarding his chronic pain issues. He's had a lot going on lately and says that, following the rhizotomies, he had some pain in his legs and he has also noted some swelling over the last month or so. His primary care physician had actually started him on Lasix and he has not started taking that yet because he has just received it in the mail. He does have some edema that develops increasingly as the day progresses. He's complaining of the knee pain as well and I am suspicious that at least part of the knee pain may be arising from the edema. He has followed up with orthopedics for that. It has been a while since we've had a lumbar MRI and with everything going on it would seem reasonable to get a new lumbar MRI. As far as any of this coming from the rhizotomy, it seems like this would be unlikely since he's having symmetrical symptoms in his lower extremities, and it would be difficult to appreciate if he had some kind of side effect from the rhizotomy that it would be symmetrical. We will plan to see him back in about a month, continue his pain medication for now, and see how he's doing with the Lasix and hopefully review the MRI at that point. 12/08/2024 Spondylosis without myelopathy or radiculopathy, lumbar region (ICD-10 - M47.816) 11/17/2024 Chronic pain syndrome (ICD-10 - G89.4) I had a nice discussion with the patient today regarding his chronic pain complaints. He states he has been having some trouble lately with his lower back pain and states his radicular symptoms have returned. He reports pain, hot burning sensation, numbness and tingling down his bilateral lower extremities. He is done well with LESI's in the past noting greater than 50% relief for greater than 3 months. After discussion we will get him set up for an episodic LESI L5-S1. He also feels his hydrocodone is lacking in duration. After discussion, I will trial him on an increase of his hydrocodone 7.5/325 to 3/day. He denies any other changes since we last seen him or any untoward side effects of the medication. He will return to clinic after procedure to monitor for treatment effectiveness and compliance. 10/06/2024 Spondylosis without myelopathy or radiculopathy, lumbar region (ICD-10 - M47.816) 10/06/2024 Chronic pain syndrome (ICD-10 - G89.4) I had a nice discussion with the patient today regarding his chronic pain complaints. He is status post left lumbar rhizotomy. He does feel this helped relieve his pain about 50%. He seemed a little disappointed that it did not relieve all of his pain. I did explain that unfortunately nothing we do will relieve all of his pain and that our goal is to decrease his pain some for him so he can function better. He is doing well on his current medication regimen so he will continue that at present level. He denies any changes in his health since we last seen him or any untoward side effects of the medication. He will return to clinic in 2 months to monitor for treatment effectiveness and compliance. 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) 07/13/2025 Spondylosis without myelopathy or radiculopathy, lumbar region (ICD-10 - M47.816) 03/08/2025 Radiculopathy, lumbosacral region (ICD-10 - M54.17) 05/18/2025 Radiculopathy, lumbosacral region (ICD-10 - M54.17) 07/13/2025 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) 07/13/2025 Radiculopathy, lumbosacral region (ICD-10 - M54.17) 05/18/2025 Sacroiliitis, not elsewhere classified (ICD-10 - M46.1) 09/06/2025 Radiculopathy, lumbosacral region (ICD-10 - M54.17) 03/08/2025 Sacroiliitis, not elsewhere classified (ICD-10 - M46.1) 12/14/2024 Radiculopathy, lumbosacral region (ICD-10 - M54.17) 01/04/2025 Radiculopathy, lumbosacral region (ICD-10 - M54.17) 11/17/2024 Radiculopathy, lumbosacral region (ICD-10 - M54.17) 10/06/2024 Spondylosis without myelopathy or radiculopathy, lumbar region (ICD-10 - M47.816) 10/06/2024 Sacroiliitis, not elsewhere classified (ICD-10 - M46.1) 11/17/2024 Spondylosis without myelopathy or radiculopathy, lumbar region (ICD-10 - M47.816) 01/04/2025 Spondylosis without myelopathy or radiculopathy, lumbar region (ICD-10 - M47.816) 12/14/2024 Spondylosis without myelopathy or radiculopathy, lumbar region (ICD-10 - M47.816) 09/06/2025 Sacroiliitis, not elsewhere classified (ICD-10 - M46.1) 03/08/2025 Postlaminectomy syndrome, not elsewhere classified (ICD-10 - M96.1) 05/18/2025 Postlaminectomy syndrome, not elsewhere classified (ICD-10 - M96.1) 07/13/2025 Sacroiliitis, not elsewhere classified (ICD-10 - M46.1) 07/13/2025 Postlaminectomy syndrome, not elsewhere classified (ICD-10 - M96.1) 05/18/2025 Osteoarthritis of knee, unspecified (ICD-10 - M17.9) 03/08/2025 Osteoarthritis of knee, unspecified (ICD-10 - M17.9) 09/06/2025 Postlaminectomy syndrome, not elsewhere classified (ICD-10 - M96.1) 12/14/2024 Sacroiliitis, not elsewhere classified (ICD-10 - M46.1) 01/04/2025 Sacroiliitis, not elsewhere classified (ICD-10 - M46.1) 11/17/2024 Sacroiliitis, not elsewhere classified (ICD-10 - M46.1) 10/06/2024 Postlaminectomy syndrome, not elsewhere classified (ICD-10 - M96.1) 11/17/2024 Postlaminectomy syndrome, not elsewhere classified (ICD-10 - M96.1) 10/06/2024 Osteoarthritis of knee, unspecified (ICD-10 - M17.9) 01/04/2025 Postlaminectomy syndrome, not elsewhere classified (ICD-10 - M96.1) 12/14/2024 Postlaminectomy syndrome, not elsewhere classified (ICD-10 - M96.1) 09/06/2025 USP (current) use of opiate analgesic (ICD-10 - Z79.891) 03/08/2025 Peripheral vascular disease, unspecified (ICD-10 - I73.9) 05/18/2025 Unspecified abnormalities of gait and mobility (ICD-10 - R26.9) 07/13/2025 Osteoarthritis of knee, unspecified (ICD-10 - M17.9) 07/13/2025 Unspecified abnormalities of gait and mobility (ICD-10 - R26.9) 05/18/2025 rat exterminator (current) use of opiate analgesic (ICD-10 - Z79.891) URINE TESTING TODAY; POINT OF SERVICE Urine drug screening will be performed today to monitor compliance with opioid therapy or to serve as a baseline screen for a patient who may be a candidate for opioid therapy in the future, pending UDS results. We will monitor with in-office testing (rapid testing) today and review the results prior to dispensing prescription, as well. Patient has been made aware of this policy. 03/08/2025 Unspecified abnormalities of gait and mobility (ICD-10 - R26.9) 01/04/2025 Osteoarthritis of knee, unspecified (ICD-10 - M17.9) 09/06/2025 Osteoarthritis of knee, unspecified (ICD-10 - M17.9) 12/14/2024 Osteoarthritis of knee, unspecified (ICD-10 - M17.9) 10/06/2024 Peripheral vascular disease, unspecified (ICD-10 - I73.9) 11/17/2024 Osteoarthritis of knee, unspecified (ICD-10 - M17.9) 11/17/2024 Peripheral vascular disease, unspecified (ICD-10 - I73.9) 12/14/2024 Peripheral vascular disease, unspecified (ICD-10 - I73.9) 09/06/2025 Unspecified abnormalities of gait and mobility (ICD-10 - R26.9) 01/04/2025 Peripheral vascular disease, unspecified (ICD-10 - I73.9) 03/08/2025 rat exterminator (current) use of opiate analgesic (ICD-10 - Z79.891) 05/18/2025 Spondylosis without myelopathy or radiculopathy, lumbar region (ICD-10 - M47.816) 07/13/2025 USP (current) use of opiate analgesic (ICD-10 - Z79.891) 10/06/2024 Unspecified abnormalities of gait and mobility (ICD-10 - R26.9) 10/06/2024 USP (current) use of opiate analgesic (ICD-10 - Z79.891) 07/13/2025 Spondylosis without myelopathy or radiculopathy, lumbar region (ICD-10 - M47.816) 05/18/2025 Peripheral vascular disease, unspecified (ICD-10 - I73.9) 09/06/2025 Peripheral vascular disease, unspecified (ICD-10 - I73.9) 03/08/2025 Spondylosis without myelopathy or radiculopathy, lumbar region (ICD-10 - M47.816) 01/04/2025 Unspecified abnormalities of gait and mobility (ICD-10 - R26.9) 12/14/2024 Unspecified abnormalities of gait and mobility (ICD-10 - R26.9) 11/17/2024 Unspecified abnormalities of gait and mobility (ICD-10 - R26.9) 11/17/2024 USP (current) use of opiate analgesic (ICD-10 - Z79.891) 12/14/2024 USP (current) use of opiate analgesic (ICD-10 - Z79.891) 01/04/2025 rat exterminator (current) use of opiate analgesic (ICD-10 - Z79.891) 07/13/2025 Peripheral vascular disease, unspecified (ICD-10 - I73.9) 09/06/2025 Other Reinier, Flakita Tavarez am scribing for Dr. Cachorro Brito. I, Dr. Cachorro Brito, personally performed the services described in this documentation, as scribed by Flakita Tavarez, and it is both accurate and complete. 12/14/2024 Other Anish Hills am scribing for Dr. Cachorro Brito. I, Dr. Cachorro Brito, personally performed the services described in this documentation, as scribed by Anish Polanco, and it is both accurate and complete. 01/04/2025 Other Anish Hills am scribing for Dr. Cachorro Brito. I, Dr. Cachorro Brito, personally performed the services described in this documentation, as scribed by Anish Polanco, and it is both accurate and complete. 03/08/2025 Other [place] [facility], am scribing for Dr. Cachorro Brito. I, Dr. Cachorro Brito, personally performed the services described in this documentation, as scribed by SUSAN Cano , and it is both accurate and complete. Plan Of Treatment Pending Test Test Name Order Date Blood Urea Nitrogen (BUN) 68139 07/24/20 20 Creatinine (B) 43613 07/24/2020 COVID 19 PCR--61728 02/13/2020 Epidural, Lumbar/Sacral (Caudal), w/ guicho ging guidance - 07639 11/29/2024 Future Test Test Name Order Date Neurotomy Lumbar/Sacral, 2 or more level s - 06687, 55263 09/09/2025 Insurance Providers Payer Name Payer Address Payer Phone Subscriber Number Group Number Insured Name Patient Relationship to Insured Coverage Start Date Coverage End Date [place] [address] [address] [place] [address] [phone] [id number] Anish Colon Self - patient is the insured for Life Secondary to Medicare [address] [place] [address] [id number] Anish Colon Self - patient is the insured [place] [address] [place] [phone] [id number] Anish Colon Self - patient is the insured Medical (General) History Medical History History ICD Code Problem:Hernia of abdominal cavity (diso rder) , Status :: Active Problem:Patient post percuta neous transluminal coronary angioplasty (finding) , Status :: Active Problem:Preinfarction syndrome (disorder ) , Status :: Active Problem: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) , Status :: Active Problem:Arthritis (disorder) , Status :: Active Problem:Campbell's esophagus (disorder) , Status :: Active Problem:Cutaneous eruption (morphologic abnormality) , Status :: Active Problem:Gastroesophageal reflux disease (disorder) , Status :: Active Problem:Heart disease (disorder) , Statu s :: Active Problem:Hyperlipidemia (disorder) , Stat us :: Active Problem:Hypertensive disorde r, systemic arterial (disorder) , Status :: Active Problem:Obesity (disorder) , Status :: A ctive Surgical History Surgery Date(Month/Year) Thoracotomy Open heart surgery prostate surgery Hernia repair Fundoplication Gallbladder surgery Back surgery Cataract surgery L4-S1 foraminotomies 02/2020 L4-5 laminectomy 02/2020
--- OUTSIDE RECORDS SUMMARY | 2025-09-16 05:59 | XMS_ITS | Continuity of Care Document ---
Author Organization [facility] Nickolas Abbott, [facility] ([facility]) Address [address] [place] [address] Care Team Providers Care Diagnostic Technician Name Role Phone MARK LOPEZ Primary Care Provider Assessment No assessment recorded. Plan of Treatment Reminders Order Date Submit Date Provider Last Modified By Organization Details Last Modified Time Details Appointments None record ed. Lab None record ed. Referral None record ed. Procedures None record ed. Surgeries None record ed. Imaging None record ed. Medication Orders None record ed. Patient TargetsNo targets recorded. Patient InstructionsNo instructions recorded. Reason for Referral None Reported. Problems Name Problem SNOMED Code Status Onset Date Resolution Date Notes Provider Name and Address Organization Details Recorded Time Chronic obstructi ve pulmonary disease 35168971 Active [address] [facility] 10:30:57 Hiatal hernia 22468428 Active [address] [facility] 5 10:31:15 Basal cell carcinoma 8870646 Completed 202102/13/2025 basal cell carcinom a; 10/14/20 10:35AM by Sandra Moore LPN, Office Visit; Promoted ; acuity set as *; [facility] 10:30:52 Irritable bowel syndrome 91301244 Active [address] [facility] 5 10:31:22 Aortic valve stenosis 96661281 Active 2021 Aimee Bear lucio, [facility] 5 10:30:47 Campbell's esophagus with esophagit is 633313178 Active 2022 SANDRA valdes, [facility] 4 11:09:56 Lumbago with sciatica 365501275 Active 2022 Aimee Bear null, [facility] 5 10:31:55 Essential hypertens ion 36568570 Active 2022 SANDRA valdes, [facility] 4 11:10:03 Hyperglyc emia 66730722 Active 2022 Aimee valdes, [facility] 5 10:31:18 Benign prostatic hyperplas ia 816166726 Active 2023 SANDRA MOORE lucio, [facility] 4 11:10:24 Deep venous thrombosi s 832098116 Completed 202302/13/202504/[address] [facility] 5 10:31:03 Acid reflux 895124639 Active [address] [facility] 5 10:30:42 Edema 374044114 Active 2024 Aimee valdes, [facility] 5 10:31:08 Stasis dermatiti s 29459355 [facility] 08:15:18 Problem Notes None recorded. Procedures Surgical History Date Name Laterality Status Provider Name and Address Organization Details Recorded Time 07/18/20 25 Mohs surgery completed [facility] 07/24/2025 15:14:12 03/19/20 18 Prostatectomy completed [facility] 11/02/2023 11:14:40 operation on spinal cord completed Aimee Bear [facility] 02/13/2025 10:23:51 Appendectomy completed [facility] 11/02/2023 11:14:07 Cholecystectomy completed [facility] 11/02/2023 11:14:47 Cabg vein three completed [facility] 11/02/2023 11:15:04 Bethany fundoplication completed [facility] 11/02/2023 11:15:10 Imaging Results None recorded. Procedure Notes None recorded. Medical Equipment None Reported. Allergies Allergen ID Allergen Name Allergen Category Reaction Reaction Severity Criticality Documentation Date Start Date Code Code System Note Provider Name and Address Organization Details Recorded Time 21265 codeine medicatio n rash Not available Not available 05/16/2023 2670 RxNorm [facility] 4 11:08:56 23522 Bactrim medicatio n Not available Not available Not available 05/22/2023 77994 [address] [facility] 3 09:01:09 843 Product containin g 3-hydroxy -3-methyl glutaryl- coenzyme A reductase inhibitor (product) medicatio n myalgias (muscle pain) Not available Not available 01/19/2023 [address] [facility], [facility]izaL[facility]w 3 09:12:17 844 Plavix medicatio n rash Not available Not available 01/19/2023 91590 2 RxNorm Aime[address] Linobl[address] lucio [facility], Nickolas 3 09:12:33 845 Augmentin medicatio n rash Not available Not available 01/19/2023 43852 2 RxNorm Aimee Marianela val[address] [facility], Nickolas 3 09:12:46 846 oxycodone medicatio n rash Not available Not available 01/19/2023 7804 RxNorm [address] [facility], Nickolas 3 09:13:04 Medications Name Sig Start Date [...] times daily 11/02 completed 436; Recorded 01/17/20 9:31AM by Sandra Moore LPN (i edilia through Mark Lopez MD), Annotati on/Adden dum; [...] Updated DateTime 5 166.37 cm 33.1 kg/m2 64366.6 6 g 97.6 [degF] 86 /min 93 % 142/82 mm[Hg] Aimee Bear [facility] 5 11:46:17 Social History Question Answer Notes LastModified by Organizat ion Details LastModified Time Tobacco Smoking Status Current Some Day Smoker cigars Aimee Marianela [facility], [facility] 08/03/2025 11:43:22 When Did You Quit [...] Functional Status Question Answer Note LastModified by Organizat ion Details LastModified Time How many times per week do you consume alcohol? 5-7 times per week 7 days per week Information not available 08/03/2025 Do you use any illicit or recreational drugs? No [email or web address] Information not available 11/02/2023 Do you or have you ever used any other forms of tobacco or nicotine? No [email or web address] Information not available 11/02/2023 What is your level of alcohol consumption? Moderate Information not available 08/03/2025 Mental Status None recorded. Family History Relationship Description Onset Age of this Age Resolved Age Notes LastModified by Organization Details LastModified Time Brother Deep venous thrombosis [email or web address] Not available 10/19 11:12:23 Sister Deep venous thrombosis [email or web address] Not available 10/19 11:12:23 Sister Leukemia [email or web address] Not availab le 11/02/2023 11:12:56 Father Coronary atherosclero sis [email or web address] Not available 11/02 11:12:38 Paternal Grandfather Coronary atherosclero sis [email or web address] Not available 11/02 11:12:38 Mother Malignant melanoma [email or web address] Not available 11/02 11:12:49 Medical History No medical history recorded. Immunizations Vaccine Type Date Status Note Provider Lang naranjo and Address Organization Details Recorded Time zoster recombinant 1 completed SANDRA valdes, [facility] 11/02/2023 11:08:32 Influenza, split virus, trivalent, preservative 1 completed SANDRA MOORE null, [facility] 11/02/2023 11:08:32 Pneumococcal conjugate PCV 13 6 completed SANDRA MOORE null, [facility] 11/02/2023 11:08:32 pneumococcal polysaccharide PPV23 1 completed SANDRA OMORE null, [facility] 11/02/2023 11:08:32 zoster recombinant 1 completed SANDRA MOORE null, [facility] 11/02/2023 11:08:32 Influenza, high-dose, quadrivalent, PF 1 completed SANDRA MOORE null, [facility] 11/02/2023 11:08:32 Influenza, high-dose, quadrivalent, PF 2 completed SANDRA MOORE null, [facility] 11/02/2023 11:08:32 COVID-19, mRNA, LNP-S, PF, 100 mcg/0.5mL dose or 50 mcg/0.25mL dose 1 completed SANDRA MOORE null, [facility] 11/02/2023 11:08:32 COVID-19, mRNA, LNP-S, PF, 100 mcg/0.5mL dose or 50 mcg/0.25mL dose 1 completed SANDRA MOORE null, [facility] 11/02/2023 11:08:32 COVID-19, mRNA, LNP-S, PF, 100 mcg/0.5mL dose or 50 mcg/0.25mL dose 2 completed SANDRA MOORE null, [facility] 11/02/2023 11:08:32 COVID-19, mRNA, LNP-S, PF, 100 mcg/0.5mL dose or 50 mcg/0.25mL dose 1 completed SANDRA MOORE null, [facility] 11/02/2023 11:08:32 COVID-19, mRNA, LNP-S, bivalent, PF, 50 mcg/0.5 mL or 25mcg/0.25 mL dose 2 completed SANDRA MOORE null, [facility] 11/02/2023 11:08:32 Tdap 9 completed SANDRA MOORE null, [facility] 11/02/2023 11:08:32 Influenza, high-dose, trivalent, PF 9 completed SANDRA MOORE null, [facility] 11/02/2023 11:08:32 Influenza, high-dose, trivalent, PF 8 completed SANDRA MOORE null, [facility] 11/02/2023 11:08:32 Influenza, high-dose, quadrivalent, PF 3 completed SANDRA MOORE null, [facility] 03/11/2024 10:45:56 COVID-19, mRNA, LNP-S, PF, 50 mcg/0.5 mL 3 completed SANDRA MOORE null, [facility] 03/11/2024 10:45:56 Influenza, high-dose, trivalent, PF 4 completed Not Available [facility] 08/03/2025 11:36:15 COVID-19, mRNA, LNP-S, PF, 50 mcg/0.5 mL 4 completed Not Available [facility] 08/03/2025 11:36:15 Influenza, adjuvanted, trivalent, PF 5 completed Not Available [facility] 08/03/2025 11:36:15 Past Encounters Encounter ID Performer Location Encounter Start Date Encounter Closed Date Diagnosis/Indication Diagnosis SNOMED-CT Code Diagnosis ICD10 Code Diagnosis IMO Codes Diagnosis Note [id number] Mark Lopez MD [facility] ([facility]) [address] [place] [address] 08/03/2025 11:34:48 08/07/2025 14:08:19 Subcutaneous hematoma 3902326 T14.8XXA 94871173 reassuranc e given. no pulsation it is not expanding. use warm compresses . Health Concerns Section Related Observation LastModified by Organization Detai ls LastModified Time None Recorded Concern Status LastModified by Organization Details LastModified Time None Recorded Payers Encounter Date Sequence Insurance Name Policy Number Policy [place] Covered Member ID [place]gs Member ID Guarantor Name 08/03/2025 1 [place]IC[place] Anish Colon [id number] Anish Colon 08/03/2025 2 FOR LIFE () Anish Colon [id number] Anish Colon Notes Date Note Type Note Provider Name and Address Organization Details Recorded Time 08/03/2025 text/html Pt had a basal cell carcinoma removed on 07/18 and stitches removed on 07/28. She had to go in twice to remove all of the cells. Pt states the second time she nicked an artery. He now has a lump on his forehead where the spot was removed. He would like to have it evaluated. Mark Lopez MD [address] [place] [address], [phone], [facility] 08/03/2025 11:54:32
--- OUTSIDE RECORDS SUMMARY | 2025-09-16 05:59 | XMS_ITS | Patient Health Record ---
Author Organization [facility] Address [address] [place] [address] Care Team Providers Care Program Project Manager Name Role Phone Brandon Lopez MD Primary Care Provider Unavailabl e Allergies Allergen (clinical drug ingredient) Drug/Non Drug Allergy documented on EMR Reaction Allergy Type Onset Date Status Information temporarily unavailable Atorvastatin Calcium , Drug Allergy Active Information temporarily unavailable Augmentin , , , Drug Allergy Active Information temporarily unavailable Clopidogrel Bisulfate , , Drug Allergy Active Information temporarily unavailable Crestor (rosuvastatin) Unknown Drug Allergy Activ e Information temporarily unavailable LIPITOR Unknown Drug Allergy Active Information temporarily unavailable norvasc Unknown Drug Allergy Active Reason For Referral No Information Medications Medication SIG (Take, Route, Frequency, Duration) Notes Start Date End Date Status Metoprolol Metoprolol *Reor clyde from [facility] for eRx and Interaction Alerts* 10/20/2011 Active Valencia 5-325 MG 1 tablet as needed Orally q8h; Duration: 30 days dx: back pain with radiculopathy, s/p lumbar laminectomy *Reorder from [facility] for eRx and Interaction Alerts* 03/21/2020 Active Lisinopril Lisinopril *Pick strength-form from [facility] for eRX* 03/18/2012 Active Ascorbic Acid 4.7 MG/ML / POLYETHYLENE [...] sodium sulfate 7.5 MG/ML Oral Solution [MoviPrep] *R 07/14/2018 Active Valencia 5-325 MG 1 tablet as needed Orally every 12 hrs; Duration: 15 days *Reorder from [facility] for eRx and Interaction Alerts* 07/03/2020 Active Valencia 5-325 MG 1 tablet as needed Orally every 8 hrs; Duration: 10 days *Reorder from [facility] for eRx and Interaction Alerts* 05/30/2020 Active Valencia 5-325 MG 1 tablet as needed Orally q12 h; Duration: 14 days *Reorder from [facility] for eRx and Interaction Alerts* 08/02/2020 Active Valencia 5-325 MG 1 tablet as needed Orally every 6 hrs; Duration: 30 days *Reorder from [facility] for eRx and Interaction Alerts* 02/29/2020 Active Aspirin Aspirin *Pick strength-form from [facility] for eRX* 03/18/2012 Active Gabapentin 100 MG 1 capsule Orally twice a day; Duration: 90 days 11/02/2020 Active Rivaroxaban 20 MG Oral Tablet rivaroxaban 20 MG Oral Tablet *Reorder from [facility] for eRx and Interaction Alerts* 07/14/2018 Active 24 HR Metoprolol Tartrate 25 MG Extended Release Tablet 24 HR Metoprolol Tartrate 25 MG Extended Release Tablet *Reorder from [facility] for eRx and Interaction Alerts* 07/14/2018 Active Gabapentin 300 MG 1 capsule Orally Once a day; Duration: 90 days 05/22/2020 Active Omeprazole 40 MG Enteric Coated Capsule Omeprazole 40 MG Enteric Coated Capsule *Reorder from [facility] for eRx and Interaction Alerts* 07/14/2018 Active Lisinopril 20 MG Oral Tablet Lisinopril 20 MG Oral Tablet *Reorder from [facility] for eRx and Interaction Alerts* 07/14/2018 Active Omeprazole Omeprazole *Pick strength-form from [facility] for eRX* 10/25/2011 Active Valencia 5-325 MG 1 tablet as needed Orally every 6 hrs; Duration: 10 days *Reorder from [facility] for eRx and Interaction Alerts* 09/28/2020 Active Valencia 5-325 MG 1 tablet as needed Orally every 6 hrs; Duration: 7 days *Reorder from [facility] for eRx and Interaction Alerts* 09/05/2020 Active Amlodipine 5 MG Oral Tablet Amlodipine 5 MG Oral Tablet *Reorder from [facility] for eRx and Interaction Alerts* 07/14/2018 Active Gabapentin 300 MG 1 capsule Orally Once a day; Duration: 90 days 11/02/2020 Active Misc. Devices - as directed WALKER 07/01/2022 A ctive Immunizations Vaccine Route Administration Date Status Comme nts Influenza (whole), CPT 84873 Inactive Unknown 08/04/2017 Administered Problems Problem Type SNOMED Code ICD Code Onset Dates Problem Status W/U Status Risk Notes Problem Information temporarily unavailable Other chronic pain (G89.29) Active confirmed Problem Information temporarily unavailable Spondylolisthesis at L5-S1 level (M43.17) Active confirmed Problem Information temporarily unavailable Aortic valve stenosis (424.1) Active confirmed [id number] 911- Problem Information temporarily unavailable Lumbar osteoarthritis (721.3) Active confirmed Dhiraj-985 911- Problem Information temporarily unavailable Tachycardia, unspecified (785.0) Active confirmed Dhiraj-985 911- Problem Information temporarily unavailable Essential hypertension (401.1) Active confirmed Dhiraj-985 911- Problem Information temporarily unavailable Coronary artery disease (414.01) Active confirmed Dhiraj-985 911- Problem Information temporarily unavailable BPH (600.00) Active confirmed Dhiraj-985 911- Problem Information temporarily unavailable Coronary atherosclerosis of [place] coronary a (414.01) 012 Active confirmed [id number] 6773- Problem Information temporarily unavailable 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) 017 Problem resolved confirmed Dhiraj-985 911- Problem Information temporarily unavailable Irritable bowel syndrome (564.1) Problem resolved confirmed Dhiraj-985 911- Problem Information temporarily unavailable Palpitations (785.1) 018 Problem resolved confirmed Dhiraj-985 911- Problem Information temporarily unavailable Diarrhea (787.91) Problem resolved confirmed Dhiraj-985 911- Problem Information temporarily unavailable Generalized abdominal pain (789.07) Problem resolved confirmed Dhiraj-985 911- Problem Information temporarily unavailable COPD (496) 016 Problem resolved confirmed Dhiraj-985 911- Problem Information temporarily unavailable TERENCE (300.02) Problem resolved confirmed Dhiraj-985 911- Problem Information temporarily unavailable Acute sinusitis (461.9) 016 Problem resolved confirmed Dhiraj-985 911- Problem Information temporarily unavailable Hypercholesterolemia (272.0) Problem resolved confirmed Dhiraj-985 911- Problem Information temporarily unavailable Other abnormal findings on blood examination (790.99) 017 Problem resolved confirmed Dhiraj-985 911- Problem Information temporarily unavailable Vaccination against other viral diseases, Influenza (V04.81) Problem resolved confirmed Dhiraj-985 911- Problem Information temporarily unavailable External cerumen impaction (380.4) Problem resolved confirmed Dhiraj-985 911- Problem Information temporarily unavailable Lipoma, unspecified site (214.9) Problem resolved confirmed Dhiraj-985 911- Problem Information temporarily unavailable Cervical radiculopathy (723.4) Problem resolved confirmed Dhiraj-985 911- Problem Information temporarily unavailable Urinary tract infection (595.0) Problem resolved confirmed Dhiraj-985 911- Problem Information temporarily unavailable History of noncompliance with medical treatment (V15.81) 016 Problem resolved confirmed Dhiraj-985 911- Problem Information temporarily unavailable Bradycardia (427.89) Problem resolved confirmed Dhiraj-985 911- Problem Information temporarily unavailable Rash (782.1) Problem resolved confirmed Dhiraj-985 911- Problem Information temporarily unavailable Hiatal hernia (553.3) 017 Problem resolved confirmed Dhiraj-985 911- Plan Of Treatment Pending Test Test Name Order Date Prothrombin Time 38813 02/07/2020 Basic Metabolic Panel 74793 02/20/2020 Basic Metabolic Panel 90722 02/07/2020 Blood Urea Nitrogen (BUN) 67344 07/24/20 20 Blood Urea Nitrogen (BUN) 68478 11/01/19 CBC w\ Auto Diff 44202 02/07/2020 Creatinine (B) 98119 07/24/2020 Creatinine (B) 38807 11/01/2020 Partial Thromboplastin Time 91286 2019 CBC Reflex Man Diff 69377, 04088 020 WBC Auto Diff--47621 02/20/2020 COVID 19 PCR--28002 02/13/2020 Chest PA/Lat-85870 02/07/2020 Chest PA/Lat-66484 02/13/2020 Lumbosacral Spine AP/Lat-28674 0 Lumbosacral Spine AP/Lat-92959 0 MRI Lumbar Spine w/ + w/o Cont-34552 MRI Lumbar Spine w/ + w/o Cont-30373 03/2020 Insurance Providers Payer Name Payer Address Payer Phone Subscriber Number Group Number Insured Name Patient Relationship to Insured Coverage Start Date Coverage End Date [place] Medicare [address] [place] [employer] [phone] [id number] Anish Colon Self - patient is the insured for Life Secondary to Medicare [address] [place], [place] [phone] [id number] Anish Colon Self - patient is the insured [place] [address] [place], [place] [id number] Anish Colon Self - patient is the [...] :: A ctive Surgical History Surgery Date(Month/Year) L4-5 laminectomy 02/2020 L4-S1 foraminotomies 02/2020
--- NOTE | 2025-09-16 06:00 | ECG_ITS ---
[employer] Test Date: 2025-09-16 Pat Name: Anish Colon Department: Room: Gender: Male Pool Nurse: : 1940 Requested By: Tho Santamaria Order Number: [id number] Nicanor MD: Marvin Espinoza M.D. Measurements Intervals [place] Rate: 104 P: 54 IN: 172 QRS: -60 QRSD: 146 T: 30 QT: 400 QTc: 528 Interpretive Statements SINUS TACHYCARDIA WITH FREQUENT VENTRICULAR PREMATURE COMPLEXES IN A BIGEMINAL PATTERN RIGHT BUNDLE BRANCH BLOCK [120+ ms QRS DURATION, UPRIGHT V1, 40+ ms S IN I/aVL/V4/V5/V6] LEFT ANTERIOR FASCICULAR BLOCK [QRS AXIS <= -45, QR IN I, RS IN II] ST ELEVATION, CONSIDER ANTERIOR INJURY ACUTE AK Compared to ECG 10/21/2020 16:12:36 ST ELEVATION IS NEW Premature ventricular contractions are new Myocardial infarct finding now present Electronically Signed On 09-16-2025 14:53:45 PAPER RULER by Marvin Espinoza M.D. [email or web address]
--- NOTE | 2025-09-16 06:03 | ED_ITS ---
HPI - Abdominal Pain 2 General: Chief Complaint: Abdominal Pain Stated Complaint: ABD PAIN Time Seen by Provider: 09/16/25 05:57 Source: patient and EMS Mode of arrival: EMS Limitations: no limitations History of Present Illness: 85-year-old male states he woke up this morning at 4 AM he is having abdominal pain sharp in nature along with some vomiting. Patient states he ate also had some dyspnea and burning pain that goes into his chest. Patient denies any fevers denies any worse or improving factors. Denies any diarrhea Related Data Home Medications ?Medication ?Instructions ?Recorded ?Confirmed nitroglycerin 0.4 mg sublingual 0.4 mg sublingual Q5M PRN Chest 11/21/19 09/16/25 tablet (Nitrostat) Pain omeprazole 20 mg capsule,delayed 20 mg PO BID PRN Acid Reflux 01/16/20 09/16/25 release hydrocodone 7.5 mg-acetaminophen 1 tab PO Q8H PRN Pain 04/20/23 09/16/25 325 mg tablet furosemide 40 mg tablet 40 mg PO DAILY 12/29/2408/20 ketoconazole 2 % shampoo See Rx Instructions .Route . COMPLEX 09/16/25 09/16/25 lisinopril 20 mg tablet 20 mg PO BID 09/16/25 Previous Rx's ?Medication ?Instructions ?Recorded amlodipine 5 mg tablet 10 mg (2 x 5 mg) PO DAILY #1 4 tabs 01/07/22 Allergies Allergy/AdvReac Type Severity Reaction Status Date / Time amoxicillin (From Augmentin) Allergy ALGY-Rash Verified 08/31/25 10:19 clavulanic acid (From Allergy ALGY-Rash Verified 08/31/25 10:19 Augmentin) clopidogrel (From Plavix) Allergy ALGY-Joint Verified 08/31/25 10:19 Pain Vtevcas-JON-CiC Reductase Allergy ADV-Weaknes Verified 08/31/25 10:19 Inhibitor (Qlgrmed-Odv-Ahz s Reductase Inhibitor) sulfamethoxazole (From Allergy ALGY-Rash Verified 08/31/25 10:19 Bactrim) trimethoprim (From Bactrim) Allergy ALGY-Rash Verified 08/31/25 10:19 PFSH ED 2 PFSH: Medical History Aortic stenosis Bilateral hydrocele Elevated PSA BPH with obstruction/lower urinary tract symptoms Hypertension Coronary artery disease history of CABG x3, 10/2011 Superficial thrombophlebitis DVT (deep venous thrombosis) Surgical History History of [place] fundoplication S/P TURP (status post transurethral resection of prostate) History of hernia repair Hx of CABG H/O angioplasty History of cholecystectomy H/O transurethral resection of prostate 03/2018 Family History Brother CAD (coronary artery disease) Father CAD (coronary artery disease) Hyperlipidemia Hypertension Mother Cancer Sister Cancer Diabetes Son Diabetes Denies family history of Clotting disorder Dementia Psychiatric illness Chronic kidney disease (CKD) Suicide Anesthesia complication Bleeding disorder Family history of premature coronary artery disease Stroke Social History Smoking and tobacco/nicotine status: unknown if used tobacco/nicotine Second hand smoke exposure: Yes Alcohol intake: current Substance/Drug Use: unknown Adopted: No Caregiver/support person: No Lives independently: No Household members: spouse Marital status: Current occupational status: retired Physical Exam 2 Const: COMMON NORMALS: no acute distress, patient oriented x3 and healthy appearing HENMT: COMMON NORMALS: normocephalic and atraumatic HEAD & SCALP: n ormocephalic and atraumatic Eye: COMMON NORMALS: Equal, round and reactive pupils present and EOMs intact bilaterally PUPIL: Yes Equal, round and reactive pupils present Neck/C-Spine: COMMON NORMALS: full ROM and supple Chest: COMMONS NORMALS: normal inspection of the chest and normal palpation of entire chest wall Resp: COMMON NORMALS: normal respiratory effort, No retractions, No use of accessory muscles and clear to auscultation bilaterally AUSCULTATION: clear to auscultation bilaterally Cardio: COMMON NORMALS: regular rate, regular rhythm and No murmurs present (Cardio) RATE: regular rate RHYTHM: regular rhythm GI: COMMON NORMALS: Normal to inspection, nondistended, normoactive bowel sounds present, Soft to palpation, non-tender and no masses PALPATION: Yes Soft to palpation Extremity: COMMON NORMALS: normal to inspection and full ROM Neuro: COMMON NORMALS: patient oriented x3, moves all extremities and no focal motor deficits Psych: COMMON NORMALS: mental status grossly normal, Normal thought process present and cooperative THOUGHT PROCESS: Normal thought process present Skin: COMMON NORMALS: no rashes or lesions noted and no wounds GENERAL SKIN EXAM: no rashes or lesions noted Course 2 Vital Signs: Vital signs: Vital Signs Temperature 97.8 F 09/16/25 05:52 Pulse Rate 103 H 09/16/25 07:48 Respiratory Rate 12 09/16/25 07:48 Blood Pressure 116/72 09/16/25 07:48 Pulse Oximetry 92 09/16/25 07:48 Oxygen Delivery Me thod Nasal Cannula 09/16/25 07:48 Oxygen Flow Rate 3 09/16/25 07:48 MDM - Abdominal Pain Medical Decision Making Patient originally presented here with abdominal pain with some pain going to his chest. His initial EKG here showed sinus tachycardia with PVC no ST elevation heart rate was 105 QRS 140 QTc 457. Patient started having increasing pain while here repeat EKG was done at 7:27 AM this EKG showed ST elevation in V2 V3 consistent with a STEMI. STEMI alert was called and spoke to purchasing contracting clerk Dr. Luna patient given Plavix aspirin and heparin and patient is going to the Surveillance Investigator. Did review his x-ray showed no acute abnormality. critical care time 35 minutes The high probability of a clinically significant, sudden or life threatening deterioration of the patient's cv system(s) required my full and direct attention, intervention and personal management. The critical care time is as shown. This time is in addition to time spent performing any reported procedures but includes the following: [x] Data and vital sign review and interpretation [x] Patient assessment, examination and intervention [x] Documentation [x] Medication orders and management Medical Records I reviewed the patient's medical records. Lab Data I reviewed the patient's lab results. 09/16/25 06:22 09/16/25 06:44 Labs/Radiology: Radiology Impressions Chest X-Ray 09/16/25 05:58 IMPRESSION: Stable chronic findings. No acute abnormality. Chest/Abdomen/Pelvis CT 09/16/25 05:58 IMPRESSION: 1. No acute intrathoracic pathology. 2. Aneurysmal dilatation of the ascending thoracic aorta. IMPRESSION: No acute findings. Laboratory Results WBC 13.49 10^3/uL (3.29-11.43) H 09/16/25 06:22 RBC 4.52 10^6/uL (3.85-5.65) 09/16/25 06:22 Hgb 14.40 g/dL (11.27-16.99) 09/16/25 06:22 Hct 43.3 % (37-53) 09/16/25 06:22 MCV 95.8 fl (82-101) 09/16/25 06:22 MCH 31.9 pg (27-33) 09/16/25 06:22 MCHC 33.3 g/dL (30-55) 09/16/25 06:22 RDW 12.9 % (12.1-15.1) 09/16/25 06:22 Plt Count 232 10^3/cmm (157-399) 09/16/25 06:22 MPV 11.0 fL (7.4-10.4) H 09/16/25 06:22 Neut % (Auto) 72.3 % 09/16/25 06:22 Lymph % (Auto) 16.5 % 09/16/25 06:22 [place] % (Auto) 8.5 % 09/16/25 06:22 Eos % (Auto) 1.6 % 09/16/25 06:22 Baso % (Auto) 0.8 % 09/16/25 06:22 Neut # (Auto) 9.76 10^3/uL (1.8-7.7) H 09/16/25 06:22 Lymph # (Auto) 2.2 10^3/uL (0.8-4.8) 09/16/25 06:22 [place] # (Auto) 1.1 10^3/uL (0.2-0.9) H 09/16/25 06:22 Eos # (Auto) 0.2 10^3/uL (0.0-0.8) 09/16/25 06:22 Baso # (Auto) 0.1 10^3/uL (0.0-0.1) 09/16/25 06:22 Nucleated RBC % (auto) 0 % 09/16/25 06:22 Nucleated RBCs # 0.0 /100WBC 09/16/25 06:22 Sodium 139 mmol/L (136-145) 09/16/25 06:44 Potassium 3.3 mmol/L (3.5-5.1) L 09/16/25 06:44 Chloride 102 mmol/L (98-107) 09/16/25 06:44 Carbon Dioxide 22 mmol/L (22-29) 09/16/25 06:44 Anion Gap 18.3 (5-19) 09/16/25 06:44 BUN 11 mg/dL (8-23) 09/16/25 06:44 Creatinine 0.8 mg/dL (0.7-1.2) 09/16/25 06:44 GFR Calculation Not Reportable 09/16/25 06:44 Glucose 192 mg/dL (65-115) H 09/16/25 06:44 Calculated Osmolality 293 mOsm/kg (285-295) 09/16/25 06:44 Calcium 9.5 mg/dL (8.5-10.5) 09/16/25 06:44 Total Bilirubin 0.8 mg/dL (0.15-1.2) 09/16/25 06:44 AST 58 U/L (0-40) H 09/16/25 06:44 ALT 45 U/L (0-41) H 09/16/25 06:44 Alkaline Phosphatase 79 U/L (40-130) 09/16/25 06:44 Troponin T Baseline 21 ng/L (0-15) H 09/16/25 06:22 Total Protein 7.0 g/dL (6.6-8.7) 09/16/25 06:44 Albumin 4.3 g/dL (3.5-5.2) 09/16/25 06:44 Globulin 2.7 g/dL (1.3-4.6) 09/16/25 06:44 Lipase 19 U/L (13-60) 09/16/25 06:44 All radiology interpretation(s) finalized by discharge EKG Data EKG 1: I personally reviewed and interpreted this EKG as follows: EKG interpretation date: 09/16/25 EKG interpretation time: 06:11 Interpretation: sinus ach hr [address] elevation qrs 140 qtc 457 Critical Care Time 2 Critical Care Time: Critical Care Time: Yes Total Critical Care Time: 35 Attestation: The high probability of a clinically significant, sudden or life threatening deterioration of the patient's cv system(s) required my full and direct attention, intervention and personal management. The critical care time is as shown. This time is in addition to time spent performing any reported procedures but includes the following: [x] Data and vital sign review and interpretation [x] Patient assessment, examination and intervention [x] Documentation [x] Medication orders and management Discharge Plan Discharge Condition: Stable Coding Level of Care Code ED Rail Car Repairer for Lainey Blanchard
[2025-09-16] MEDS: ondansetron 2 mg/ML SDV 2 mL 4 MG IVP ×4 (06:19→22:25)
[2025-09-16] MEDS: morphine 4 mg/mL SDV 1 mL IVP (06:19)
[2025-09-16 06:32] LABS: Hematocrit 43.3 % (37-53); Hemoglobin 14.40 g/dL (11.27-16.99); Mean Corpuscular HGB Conc 33.3 g/dL (30-55); Mean Corpuscular Hemoglobin 31.9 pg (27-33); Mean Corpuscular Volume 95.8 fl (82-101); Nucleated Red Blood Cells % 0 %; Platelet Count 232 10^3/cmm (157-399); Red Blood Count 4.52 10^6/uL (3.85-5.65); White Blood Count 13.49 10^3/uL (3.29-11.43)
[2025-09-16] MEDS: HYDROmorphone 0.5 MG/0.5 ML INJ 1 MG IVP (06:44)
[2025-09-16 06:50] LABS: Troponin(5th) Baseline 21 ng/L (0-15)
[2025-09-16 07:04] LABS: Alanine Aminotransferase 45 U/L (0-41); Albumin Level 4.3 g/dL (3.5-5.2); Alkaline Phosphatase 79 U/L (40-130); Anion Gap 18.3 (5-19); Aspartate Amino Transferase 58 U/L (0-40); Blood Urea Nitrogen 11 mg/dL (8-23); Calcium 9.5 mg/dL (8.5-10.5); Carbon Dioxide 22 mmol/L (22-29); Chloride 102 mmol/L (98-107); Globulin 2.7 g/dL (1.3-4.6); Glucose 192 mg/dL (65-115); Lipase 19 U/L (13-60); Osmolality Calculated 293 mOsm/kg (285-295); Potassium 3.3 mmol/L (3.5-5.1); Sodium 139 mmol/L (136-145); Total Protein 7.0 g/dL (6.6-8.7)
[2025-09-16] MEDS: iohexol 350 mg/mL 500 mL Btl (per mL) IV (07:12)
--- NOTE | 2025-09-16 07:27 | ECG_ITS ---
[facility] Date: 2025-09-16 Pat Name: Anish Colon Department: Room: Gender: Male Seed Sorter: : 1940 Requested By: Tho Santamaria Order Number: [id number] Nicanor MD: Marvin Espinoza M.D. Measurements Intervals [place] Rate: 111 P: 15 [place]: 140 QRS: -72 QRSD: 154 T: 36 QT: 396 QTc: 538 Interpretive Statements SINUS TACHYCARDIA PREMATURE SUPRAVENTRICULAR BEAT RIGHT BUNDLE BRANCH BLOCK LEFT ANTERIOR FASCICULAR BLOCK [QRS AXIS <= -45, QR IN I, RS IN II] PROBABLE SEPTAL MYOCARDIAL INFARCTION , POSSIBLY ACUTE [35 ms Q WAVE IN V1/V2] ACUTE [place] INTERPRETATION BASED ON A DEFAULT AGE OF 40 YEARS Compared to ECG 09/16/2025 06:11:06 FREQUENT ECTOPIC BEATS DECREASED ST ELEVATION INFARCTION IS NEW Electronically Signed On 09-16-2025 17:20:43 SAFE DEPOSIT BOX RENTAL CLERK by Marvin Espinoza M.D. [email or web address]
[2025-09-16] MEDS: HYDROmorphone 0.5 MG/0.5 ML INJ IVP (07:30)
--- NOTE | 2025-09-16 07:33 | XACV_ITS ---
Exam Room: [facility] Ht: 175 cm Wt: 89 kg BSA: 2.10 m2 Gender: Male : 1940 Exam Priority: Routine Procedure(s): Procedure Description: Diagnostic procedure Procedure Description: PCI procedure Procedure Description: Venous Graft Catheterization Procedure Description: HERNANDEZ Graft Catheterization Procedure Description: Drug Eluting Coronary Stent Procedure Description: PTCA Procedure Description: Coronary Thrombectomy Procedure Description: Miscellaneous Procedure Description: ACT Procedure Description: Coronary Angiography Diagnostic Cath Status: Emergency Diagnostic Findings * Left Main has mild luminal irregularities. * Proximal Left Anterior Descending:chronic total occlusion, ZEV: 0 flow. * Proximal Right Coronary Artery: critical 95% stenosis, ZEV:2 flow. Diffuse severe disease downstream. * Proximal Circumflex: chronic total occlusion, ZEV: 0 flow. * Bypass grafts: SVG to RCA has a mid body 50% to moderate stenosis. SVG to diagonal artery has serial 95-99% stenosis. SVG to LAD is subtotally occluded with large thrombus. HERNANDEZ is not used for grafting.. * Coronary angiography shows right dominance. PCI Status: Emergency PCI Indication: STEMI - Immediate PCI for STEMI Interventional Findings * Procedure detail: We engaged SVG to diagonal artery with JR4 guide catheter. It was treated with 3 stents. We then turned our attention to SVG to LAD. Aspiration thrombectomy was performed. It was treated with 2 stents. Slow flow was seen. Intra graft Cardene was given. This improved the flow. Patient was transferred to ICU. . Conclusions 1. Severe multivessel [place] coronary artery disease and severe SVG graft disease. HERNANDEZ was not used for grafting.. 2. SVG to diagonal artery was treated with 3 stents. It was subtotally occluded. SVG to the LAD was treated with 2 stents and aspiration thrombectomy. It was subtotally occluded with large thrombus burden. Recommendations * Dual antiplatelet therapy with aspirin and plavix. * High intensity statin therapy. * Transfer to ICU. * Start BiPAP. Lasix given. Titrate levophed to maintain MAP> 65. Obtain echocardiogram. Interventional RX Recommendation: PCI w/o planned CABG Diagnostic RX Recommendation: PCI w/o planned CABG Anticoagulation: Heparin Pressures Phase:Rest AO : / ( 13 ) @ 8:16:00 AM / ( 32 ) @ 8:18:00 AM 127 / 67 ( 114 ) @ 8:27:00 AM 129 / 68 ( 89 ) @ 8:38:00 AM 94 / 70 ( 81 ) @ 8:45:00 AM 64 / 52 ( 57 ) @ 8:56:00 AM 62 / 54 ( 55 ) @ 8:57:00 AM 76 / 48 ( 61 ) @ 9:00:00 AM 103 / 70 ( 82 ) @ 9:11:00 AM 75 / 66 ( 70 ) @ 9:18:00 AM 101 / 76 ( 80 ) @ 9:47:00 AM 106 / 68 ( 82 ) @ 9:54:00 AM Clinical Evaluation EBL: 5mL-10mL Procedural Details Pre-Procedure Time Out. Identified patient by full name and date of as verbalized by the patient/guarantor. Does the consent match the physician's order: Yes. Accurate & Complete Informed Consent: N/A Emergent; Informed Consent not obtained due to time critical life threat. Inpatient/Outpatient History & Physical on Chart: N/A Emergent; Informed Consent not obtained due to time critical life threat. If H&P is completed, is and addenduem needed: N/A Emergent; Informed Consent not obtained due to time critical life threat; If yes, is the addendum complete: N/A Emergent; Informed Consent not obtained due to time critical life threat. Visualize and Verify Site with Patient/Guarantor: N/A. Relevant Radiology Images available: N/A Emergent. The risks, benefits, and alternatives of sedation and/or procedure were discussed by physician. The patient agrees to continue. Procedure started. [facility] Clinical Fraility Score: 3: Managing Well. Forestry Supervisor Indications: ACS <= 24 hours. Chest Pain Symptom Assessment: Typical Angina Symptoms. Correct patient, site and procedure confirmed by cath team. Current diagnosis: STEMI. PERRLA. Strong, equal hand medication aid bilaterally. Lungs clear x 5 lobes. IV Site on Arrival: 20 gauge in the right anticubital. IV Site on Arrival: 18 gauge in the left anticubital. IV Fluids: 0.9% NaCl at KVO. 0 mL infused prior to slab grinder. Pre Procedural Pulses: bilateral posterior tibial was Doppled. Pre Procedural Pulses: bilateral femoral was Doppled. Oxygen started at 6liters/min via nasal canula. bilateral groins was prepped with chloroprep then draped in the usual sterile fashion. Physician notified. Baseline sample Acquired. HR: 122 BPM. Physician arrived. Physician scrubbed in. Immediate Pre-Procedure Time Out. Correct Patient: Yes; Correct Procedure: Yes; Correct Site: Yes; Correct Patient Position: No; Correct Supplies: Yes; Dried Flammable Prep: Yes; Blood Products Available: Yes;. Lidocaine 1% infiltrated to the right groin. Arterial access obtained with micropuncture set. Admit Source: Emergency department. 6fr short sheath exchanged for 6fr 45cm flexor sheath over the wire. A 5 gambian JL4 catheter in over wire. Catheter removed over the standard wire. A 5 gambian JL4.5 catheter in over wire. Multiple views taken of left coronary artery. Catheter removed over the standard wire. A 5 gambian JR4 catheter in over wire. SVG's to RCA visualized and patent. Multiple views taken of right coronary artery. SVG to diagonal visualized with severe stenosis. Catheter redirected to HERNANDEZ. Catheter removed over the standard wire. 6 gambian JR 4 guide catheter was inserted over the wire. Add inventory: Co-facilities flight check pilot, Endoflator. Runthrough guidewire was advanced through the guide catheter to lesion in the SVG to diaganol graft. Stent inserted to lesion in the SVG to diaganol graft. Inflation Number : 1 A MDT R ORILN 2.5X18 GIUSEPPE -Lot Number# [id number] EXP 12-27-2027 was prepped and advanced across the Aorta Left -> 1st Diag. The stent was deployed at 12 JOE for 0:14 seconds. Stent balloon out over wire. Stent inserted to lesion in the SVG to diaganol graft. Inflation Number : 2 A MDT R ORLIN 2.75X18 GIUSEPPE -Lot Number# [id number] EXP 04-07-2027 was prepped and advanced across the Aorta Left -> 1st Diag. The stent was deployed at 12 JOE for 0:10 seconds. Stent balloon out over wire. Results checked. Wire out. Results checked. Runthrough guidewire was advanced through the guide catheter to lesion in the SVG to diaganol graft. Stent inserted to lesion in the SVG to diaganol graft. Stent unable to cross. Undeployed stent out over the wire. 6fr Guideliner in over the wire. Stent inserted to lesion in the SVG to diaganol graft. Inflation Number : 3 A MDT R ORLIN 2.75X30 GIUSEPPE -Lot Number# [id number] EXP 12-30-2027 was prepped and advanced across the Aorta Left -> 1st Diag. The stent was deployed at 12 JOE for 0:12 seconds. Stent balloon out over wire. Guideliner out. Wire out. Results checked. Guide catheter out. ACT drawn. Results 212 seconds. Therapeutic limits - pre-heparin administration 90-150 seconds and monitoring heparin during a vascular procedure >250 seconds. A 5 gambian MPA1 catheter in over wire. SVG's to RCA visualized and patent. Catheter removed over the standard wire. 6 gambian JR 4 guide catheter was inserted over the wire. View taken of SVG to diagonal graft. Runthrough guidewire was advanced through the guide catheter to lesion in the SVG to diaganol graft. Balloon inserted to lesion in the svg to diaganol graft. Inflation number : 4 A AB MINI TREK 2.00X15 RX BALLOON was prepped and advanced across the Aorta Left -> 1st Diag , then inflated to 4 JOE for 0:09 seconds. Inflation number: 5 The AB MINI TREK 2.00X15 RX BALLOON was reinflated across the Aorta Left -> 1st Diag, to 8 JOE for 0:10 seconds. Balloon out. Wire out. Guide catheter repositioned imaging taken of SVG to OM graft. New runthrough wire obtained and advanced through guide catheter to lesion in the SVG to OM graft. Pronto aspiration catheter in over runthrough to SVG to OM graft. Manual thrombectomy performed. Results checked. Stent inserted to lesion in the SVG to OM graft. Inflation Number : 1 A MDT R ORLIN 3.0X38 GIUSEPPE -Lot Number# [id number] EXP 12-25-2027 was prepped and advanced across the Aorta Left -> 1st Ob Bobbi. The stent was deployed at 12 JOE for 0:16 seconds. Stent balloon out over wire. Stent inserted to lesion in the SVG to OM graft. Inflation Number : 2 A MDT R ORLIN 3.5X38 GIUSEPPE -Lot Number# [id number] EXP 03-14-2028 was prepped and advanced across the Aorta Left -> 1st Ob Bobbi. The stent was deployed at 12 JOE for 0:17 seconds. Results checked. Stent balloon out over wire. Balloon inserted to lesion in the SVG to OM graft. Inflation number : 3 A AB TREK 3.00X25 RX BALLOON was prepped and advanced across the Aorta Left -> 1st Ob Bobbi , then inflated to 6 JOE for 0:05 seconds. Inflation number: 4 The AB TREK 3.00X25 RX BALLOON was reinflated across the Aorta Left -> 1st Ob Bobbi, to 8 JOE for 0:08 seconds. Inflation number: 5 The AB TREK 3.00X25 RX BALLOON was reinflated across the Aorta Left -> 1st Ob Bobbi, to 8 JOE for 0:08 seconds. Inflation number: 6 The AB TREK 3.00X25 RX BALLOON was reinflated across the Aorta Left -> 1st Ob Bobbi, to 8 JOE for 0:07 seconds. Balloon out. Balloon inserted to lesion in the SVG to OM. Inflation number: 7 The AB MINI TREK 2.00X15 RX BALLOON was reinflated across the Aorta Left -> 1st Ob Bobbi, to 8 JOE for 0:08 seconds. Inflation number: 8 The AB MINI TREK 2.00X15 RX BALLOON was reinflated across the Aorta Left -> 1st Ob Bobbi, to 8 OJE for 0:06 seconds. Inflation number: 9 The AB MINI TREK 2.00X15 RX BALLOON was reinflated across the Aorta Left -> 1st Ob Bobbi, to 0 JOE for 0:00 seconds. Inflation number: 10 The AB MINI TREK 2.00X15 RX BALLOON was reinflated across the Aorta Left -> 1st Ob Bobbi, to 8 JOE for 0:05 seconds. Pronto aspiration catheter in over runthrough to SVG to OM graft. Balloon out. Manual thrombectomy performed. Results checked. Pronto aspiration catheter in over runthrough to SVG to OM graft. Manual thrombectomy performed. Aspiration catheter removed. Wire out. Guide catheter out. ACT drawn. Results 322 seconds. Therapeutic limits - pre-heparin administration 90-150 seconds and monitoring heparin during a vascular procedure >250 seconds. 6 gambian AL 0.75 guide catheter was inserted over the wire. Results checked of SVG to OM. Runthrough in through guide catheter to SVG to OM graft. Balloon inserted to lesion in the SVG to OM graft. Inflation number : 11 A AB TREK 2.75X20 RX BALLOON was prepped and advanced across the Aorta Left -> 1st Ob Bobbi , then inflated to 8 JOE for 0:06 seconds. Inflation number: 12 The AB TREK 2.75X20 RX BALLOON was reinflated across the Aorta Left -> 1st Ob Bobbi, to 6 JOE for 0:06 seconds. Balloon out. Results checked. Wire out. Results checked. Guide catheter out. ACT drawn. Results 334 seconds. Therapeutic limits - pre-heparin administration 90-150 seconds and monitoring heparin during a vascular procedure >250 seconds. 6fr 45cm flexor sheath exchanged for new 6fr 11cm sheath over standard wire. A Right femoral angiogram was performed to determine safe placement of closure device. A Suture was successful obtaining hemostatsis at the Right Femoral artery insertion site. Sheath(s) sutured into position with 2-0 silk and sterile 4x4's and Op-site applied over the site. No oozing or signs and symptoms of hematoma noted. Arterial sheath flushed and connected to tranducer and pressure bag with heparinized saline. Post Procedure: Pulses reassessed and unchanged. PERRLA. Strong, equal hand medication aid bilaterally. No VTE prophylaxis required. Medication's Wasted: Lidocaine 1% = 10 mL. Medication's Wasted: Other = Heparin 2000 units. Medication's Wasted: Other = Fentanyl 75mcg. Total IV fluids: 82 mL. PCI Indication: STEMI. Post-op diagnosis: STEMI , Occlusion to SVG to OM graft post PCI placement of 2 GIUSEPPE. Severe stenosis of SVG to diagonal, status post PCI placement of 3 GIUSEPPE. Complications: None. Estimated blood loss: 5mL-10mL. Responsiveness - Normal response to verbal stimuli; alert and oriented, PERRLA. Airway - Unaffected, no intervention required; spontaneous ventilation. Circulation: W/N/L, pulses unchanged. Nausea/Vomiting: No. A 16Fr jacobson catheter was inserted without resistance maintaining sterile technique. Bag to gravity with clear urine returning. Procedure completed. Patient transferred by bed to ICU. Vital chart was stopped. Access Site Site: Right Femoral artery Sheath Size: 6 Fr Hemostasis Method: Suture Hemostasis Success: Successful Procedure Medications Start: 8:21 AM Stop: 8:21 AM Medication: Amiodarone (Cordarone) Amount: 150 mg Route: I.V. bolus Start: 8:32 AM Stop: 8:32 AM Medication: Amiodarone (Cordarone) Amount: 1 mg/min Route: I.V. drip Start: 8:37 AM Stop: 8:37 AM Medication: Heparin Amount: 4000 units Route: I.V. Start: 8:47 AM Stop: 8:47 AM Medication: Versed Amount: 1 mg Route: I.V. Start: 8:47 AM Stop: 8:47 AM Medication: Fentanyl Amount: 25 mcg Route: I.V. Start: 9:01 AM Stop: 9:01 AM Medication: Neosynephrine Amount: 100 mcg Route: I.V. Start: 9:06 AM Stop: 9:06 AM Medication: Levophed (norepinephrine) Amount: 4 mcg/min Route: I.V. drip Start: 9:10 AM Stop: 9:10 AM Medication: Heparin Amount: 2000 units Route: I.V. Start: 9:14 AM Stop: 9:14 AM Medication: Aggrastat 12.5 mg/250 mL Amount: 45 ml Route: I.V. bolus Start: 9:28 AM Stop: 9:28 AM Medication: Versed Amount: 1 mg Route: I.V. Start: 9:35 AM Stop: 9:35 AM Medication: Heparin Amount: 1000 units Route: I.V. Start: 9:42 AM Stop: 9:42 AM Medication: Aggrastat 12.5 mg/250 mL Amount: 16.2 ml/hr Route: I.V. drip Start: 9:53 AM Stop: 9:53 AM Medication: Neosynephrine Amount: 100 mcg Route: I.V. Start: 9:54 AM Stop: 9:54 AM Medication: Cardene Amount: 400 mcg Route: I.A. Start: 10:01 AM Stop: 10:01 AM Medication: Lasix (furosemide) Amount: 20 mg Route: I.V. I, the attending physician, have reviewed and verified all procedure medications. Yes, all medications given per verbal order Report Signatures Finalized by Richar Dobbins MD on 10/02/2025 09:36 AM
[2025-09-16] MEDS: heparin 5,000 unit/mL INJ 1 mL 4000 UNIT IVP (07:37)
--- NOTE | 2025-09-16 07:51 | PC.PHAR ---
Pt unable to verify his home medications. Med Rec completed by most current pharmacy records from [facility] and [facility] mail order. Last fill date and day supply entered in pharmacy notes.
--- NOTE | 2025-09-16 08:07 | P.HP_ITS ---
Providers/Chief Complaint 2 Admitting Physician: Richar Dobbins MD/ Interventional cardiology Primary Care Provider: Brandon Lopez MD Chief Complaint: ABD PAIN/ Chest pain History of Present Illness Anish Colon is a 85 year old male with past medical history of hypertension, coronary artery disease with prior CABG in 2011 who has come to hospital with nausea and abdominal discomfort. Abdominal pain is radiating to chest. He is also short of breath. He had a recent trip to [place]. CT scan performed did not reveal PE per ER. First EKG did not have ST elevation on it. Repeat EKG showing ST elevation in septal/anterior and anterolateral leads. Cardiac Wire Coiler emergently activated. Review of Systems 2 General: Reports: 10 or more systems reviewed and unremarkable except in HPI and below Card: Reports: chest pain and orthopnea Resp: Reports: dyspnea Medications/Allergies Home Medications ?Medication ?Instructions ?Recorded ?Confirmed ?Last Taken ?Type nitroglycerin 0.4 mg sublingual 0.4 mg sublingual Q5M PRN Chest 11/21/19 09/16/25 10/21/20 History tablet (Nitrostat) Pain 2 tabs omeprazole 20 mg capsule,delayed 20 mg PO BID PRN Acid Reflux 01/16/20 09/16/25 10/21/20 History release amlodipine 5 mg tablet 10 mg (2 x 5 mg) PO DAILY #1 4 tabs 01/07/22 09/16/25 Unknown Rx hydrocodone 7.5 mg-acetaminophen 1 tab PO Q8H PRN Pain 04/20/23 09/16/25 Unknown History 325 mg tablet furosemide 40 mg tablet 40 mg PO DAILY 12/29/2408/20 Unknown History ketoconazole 2 % shampoo See Rx Instructions .Route . COMPLEX 09/16/25 09/16/25 Unknown History lisinopril 20 mg tablet 20 mg PO BID 09/16/25 Unknown History Allergies Allergy/AdvReac Type Severity Reaction Status Date / Time amoxicillin (From Augmentin) Allergy ALGY-Rash Verified 08/31/25 10:19 clavulanic acid (From Allergy ALGY-Rash Verified 08/31/25 10:19 Augmentin) clopidogrel (From Plavix) Allergy ALGY-Joint Verified 08/31/25 10:19 Pain Iohcovx-KBF-KtG Reductase Allergy ADV-Weaknes Verified 08/31/25 10:19 Inhibitor (Koajatd-Oaj-Xil s Reductase Inhibitor) sulfamethoxazole (From Allergy ALGY-Rash Verified 08/31/25 10:19 Bactrim) trimethoprim (From Bactrim) Allergy ALGY-Rash Verified 08/31/25 10:19 PFSH Acute 2 PFSH: Medical History Aortic stenosis Bilateral hydrocele Elevated PSA BPH with obstruction/lower urinary tract symptoms Hypertension Coronary artery disease history of CABG x3, 10/2011 Superficial thrombophlebitis DVT (deep venous thrombosis) Surgical History History of [place] fundoplication S/P TURP (status post transurethral resection of prostate) History of hernia repair Hx of CABG H/O angioplasty History of cholecystectomy H/O transurethral resection of prostate 03/2018 Family History Brother CAD (coronary artery disease) Father CAD (coronary artery disease) Hyperlipidemia Hypertension Mother Cancer Sister Cancer Diabetes Son Diabetes Denies family history of Clotting disorder Dementia Psychiatric illness Chronic kidney disease (CKD) Suicide Anesthesia complication Bleeding disorder Family history of premature coronary artery disease Stroke Social History Smoking and tobacco/nicotine status: unknown if used tobacco/nicotine Second hand smoke exposure: Yes Alcohol intake: current Substance/Drug Use: unknown Adopted: No Caregiver/support person: No Lives independently: No Household members: spouse Marital status: Current occupational status: retired Vitals/I&O/Wt Last Vital Signs Temp 97.8 F 09/16/25 05:52 Pulse 103 H 09/16/25 07:48 Resp 12 09/16/25 07:48 BP 116/72 09/16/25 07:48 Pulse Ox 92 09/16/25 07:48 O2 Del Method Nasal Cannula 09/16/25 07:48 O2 Flow Rate 3 09/16/25 07:48 Weight last 48 hrs Weight 195 lb 1.6 oz Physical Exam 2 Narrative: GENERAL: Patient is alert, awake and oriented x3. [] NECK: No jugular vein distension. [] HEENT: No cyanosis. No icterus. No pallor. [] HEART: Regular S1 and S2. No murmur, rub or gallop. [] LUNGS: Clear to auscultate bilaterally. [] CENTRAL NERVOUS SYSTEM: Grossly nonfocal. [] EXTREMITIES: Lower extremities with 1+ edema bilaterally. Data 09/16/25 06:22 09/16/25 06:44 A&P Assessment and plan 1. ST elevation (STEMI) myocardial infarction: 2. Coronary artery disease: 3. Hypertension: 4. Aortic stenosis: Plan: Patient has presented with acute ST elevation NC. We will proceed with coronary angiogram with possible PCI. Patient loaded with aspirin and Plavix. Heparin bolus given. Postprocedure we will consult medicine team for management of medical issues. We will obtain echocardiogram post procedure PDMP PDMP Reviewed: Not Reviewed Attestations 2 Medical Necessity Statement*: Care expected to cross 2 midnights. Patient presented with ST elevation NC and going for coronary angiogram with possible PCI Coding Level of Care Code Acute Code for [facility] Fwd Diagnoses ST elevation (STEMI) myocardial infarction I21.3 Coronary artery disease I25.10 Hypertension I10 Aortic stenosis I35.0
[2025-09-16] MEDS: AMIODARONE HCL/D5W 900 MG/500 ML BAG 33.33 MG IV (08:32)
[2025-09-16] MEDS: norepinephrine 4 MG/250 ML BAG 15 MG IV (09:06)
--- NOTE | 2025-09-16 10:39 | PM.PROC ---
Procedure Note: Date of procedure: 09/16/25 Pre-procedure diagnosis: STEMI Post-procedure diagnosis: other (Severe multivessel coronary artery disease) Procedure: Severe multivessel [place] coronary artery disease. SVG to RCA has moderate 50-60% mid vessel stenosis. SVG to diagonal artery had long serial stenosis s/p PCI with 3 stents. SVG to LAD was subtotally occluded with thrombus in it. S/P PCI with 2 stents Transfer to ICU. Start BiPAP. Lasix given Dual antiplatelet therapy with aspirin and plavix Requiring levophed. Obtain echocardiogram Performing Provider: Richar Dobbins Estimated blood loss (mL): 10 Complications: None Condition: critical Disposition: ICU Coding Level of Care Code Acute Code for [facility] Fwd
--- NOTE | 2025-09-16 10:43 | XRR_ITS ---
PROCEDURE INFORMATION: Exam: XR Chest Exam date and time: 09/16/2025 11:50 AM Age: 85 years old Clinical indication: Other: Pulmonary edema TECHNIQUE: Imaging protocol: Radiologic exam of the chest. Views: 1 view. COMPARISON: CT angio chest w abd pel w con 09/16/2025 7:07 AM FINDINGS: Tubes, catheters and devices: Pacer pad overlies the right chest. Lungs: Similar mild diffuse interstitial prominence. No new airspace disease. Pleural spaces: Unremarkable. No pleural effusion. No pneumothorax. Heart/Mediastinum: Stable cardiomegaly. Bones/joints: Post median sternotomy. Old right rib fracture deformities again seen. XR/XR chest 1V portable [id number] IMPRESSION: No significant interval change.
--- NOTE | 2025-09-16 10:51 | USCV_ITS ---
Anish Colon Age: 85 Gender: M : 1940 Exam Date: 09/16/2025 11:11 Ordering Phys: Richar Dobbins M.D ([email or web address]) Technologist: Kolton Bass Exam Location: [facility] [place] Indication: stemi BP: 116 / 72 HR: 102 Rhythm: Sinus Technical Quality: Adequate MEASUREMENTS (Male / Female) Normal Values 2D ECHO LV Diastolic Diameter PLAX 4.6 cm 4.2 - 5.9 / 3.9 - 5.3 cm IVS Diastolic Thickness 1.4 cm 0.6 - 1.0 / 0.6 - 0.9 cm IVS Systolic Thickness 1.3 cm LVPW Diastolic Thickness 0.8 cm 0.6 - 1.0 / 0.6 - 0.9 cm LVPW Systolic Thickness 1.2 cm LVOT Diameter 2.0 cm LV Ejection Fraction 2D Teich 29.6 % LV Ejection Fraction MOD 4C 38.2 % LV Ejection Fraction MOD 2C 33.4 % LV Ejection Fraction 2C AL 33.8 % LA Diameter 5.9 cm RA Systolic Volume 4C AL 61.1 ml RA Systolic Volume 4C MOD 55.9 ml LA Sys Volume AL 66.8 cm cubed LA Sys Volume Index AL 30.5 cm cubed/m squared Aorta at Sinotubular Diameter 2.5 cm M-MODE LA Ao Ratio MM 1.6 AV Cusp Separation MM 1.3 cm DOPPLER AV Peak Velocity 139.3 cm/s LVOT Peak Velocity 53.0 cm/s AV Area Cont Eq vti 1.4 cm squared AV Area Cont Eq pk 1.2 cm squared MV Peak Velocity 81.0 cm/s MV Area PHT 7.0 cm squared Mitral E to A Ratio 1.1 TV Peak Velocity 279.5 cm/s TR Peak Velocity 296.0 cm/s TR Peak Gradient 35.0 mmHg TR Mean Velocity 253.0 cm/s TR Mean Gradient 26.7 mmHg TR Velocity Time Integral 73.4 cm PV Peak Velocity 86.0 cm/s RV Ejection Time 0.3 s FINDINGS Left Ventricle Left ventricle is normal in size. LV systolic function is severely reduced with EF of 30-35%. Severe hypokinesis of apical, anterolateral and anterior vaz. Right Ventricle Mild to moderately hypokinetic. Right Atrium Normal in size Left Atrium Normal in size IA Septum Grossly normal Mitral Valve Structurally normal mitral valve. Moderate mitral regurgitation. Aortic Valve Aortic valve is thickened and calcified. Doppler signal is inadequate to assess aortic stenosis. Tricuspid Valve Mild tricuspid regurgitation. Insufficient TR jet to evaluate RVSP. Pulmonic Valve Trace pulmonic regurgitation. Pericardium Normal Aorta Normal in size IVC Not visualized CONCLUSIONS LV systolic function is severely reduced with EF of 30-35%. Above mentioned regional wall motion abnormalities. Mild to moderately hypokinetic right ventricle Moderate mitral regurgitation. Mild tricuspid regurgitation. Trace pulmonic regurgitation. Richar Dobbins MD (Electronically Signed) Final Date: 17 September 2025 11:02 S
--- NOTE | 2025-09-16 11:51 | ECG_ITS ---
[employer] [facility] Test Date: 2025-09-16 Pat Name: Anish Colon Department: Room: ICU07 Gender: Male Central Office Associate: : 1940 Requested By: Richar Dobbins Order Number: [id number] Nicanor MD: Marvin Espinoza M.D. Measurements Intervals [place] Rate: 95 P: 62 WI: 177 QRS: 212 QRSD: 161 T: 54 QT: 425 QTc: 536 Interpretive Statements SINUS RHYTHM WITH OCCASIONAL VENTRICULAR PREMATURE COMPLEXES RIGHT AXIS DEVIATION [QRS AXIS > 100] RIGHT BUNDLE BRANCH BLOCK [120+ ms QRS DURATION, UPRIGHT V1, 40+ ms S IN I/aVL/V4/V5/V6] ANTEROSEPTAL MYOCARDIAL INFARCTION , OF INDETERMINATE AGE [40+ ms Q WAVE IN V1-V4] Compared to ECG 09/16/2025 07:27:19 Ventricular premature complex(es) now present SEPTAL ST ELEVATION NO LONGER PRESENT Electronically Signed On 09-16-2025 17:15:48 LANDSCAPE PHOTOGRAPHER by Marvin Espinoza M.D. [email or web address] [id number]
[2025-09-16] MEDS: morphine 4 mg/mL SDV 1 mL 2 MG IVP (11:58)
--- NOTE | 2025-09-16 11:58 | ECG_ITS ---
[facility] Test Date: 2025-09-16 Pat Name: Anish Colon Department: Room: Gender: Male Newsstand Vendor: : 1940 Requested By: Tho Santamaria Order Number: [id number] Nicanor MD: Marvin Espinoza M.D. Measurements Intervals [place] Rate: 105 P: 49 AR: 175 QRS: 266 QRSD: 140 T: 34 QT: 396 QTc: 524 Interpretive Statements SINUS TACHYCARDIA WITH FREQUENT VENTRICULAR PREMATURE COMPLEXES WITH FREQUENT SUPRAVENTRICULAR PREMATURE COMPLEXES RIGHT BUNDLE BRANCH BLOCK AND POSSIBLE RIGHT VENTRICULAR HYPERTROPHY [RBBB, 1.5 mV R IN V1, RAD] Compared to ECG 09/16/2025 06:00:35 ST ELEVATION HAS DECREASED IN THE SEPTAL LEADS Electronically Signed On 09-16-2025 17:23:03 GAS OPERATOR by Marvin Espinoza M.D. [id number]
[2025-09-16] MEDS: FUROsemide 10 mg/mL SDV 2mL 20 MG IVP (11:59)
[2025-09-16] MEDS: tirofiban 5 MG/100 ML PREMIX 16.2 MG IV (12:39)
--- NOTE | 2025-09-16 14:18 | PM.CONSULT ---
Providers/Reason For Consult Consulting Physician/Specialty*: Humble Hunter Reason for Consult*: STEMI alert Attending Physician: Richar Dobbins M.D Primary Care Provider: Brandon Lopez MD History of Present Illness History of Present Illness As per the previous notes and the patient: Anish Colon is a 85 year old male past medical history of hypertension, coronary artery disease with prior CABG in 2011 who has come to hospital with nausea and abdominal discomfort. The patient recently came from [place] trip. He also felt chest pressure along with abdominal discomfort. Did not report any fever chills orthopnea or PND or any recent increase in his lower leg swellings. He came to ER and EKG initially was not revealing of STEMI however the next set of EKG showed ST segment elevation in septal/anterior and anterolateral leads. Cardiac Railroad Car Letterer emergently activated with further involvement of cardiology.Troponins were also significantly raised. Patient underwent cath and had severe multivessel disease. He received in total 5 stents, 3 stents diagonal artery. And 2 stents in LAD. The patient was having mild shortness of breath likely under lying pulmonary edema and was shifted to ICU post STEMI. Patient was seen in ICU and was doing well however still feeling some chest heaviness which was related to his multivessel disease post stenting with still poor flow as per the stain sprayer. Adequate analgesia has been provided and to continue monitoring and management accordingly. Review of Systems General: Reports: 10 or more systems reviewed and unremarkable except in HPI and below Medications/Allergies Home Medications ?Medication ?Instructions ?Recorded ?Confirmed ?Last Taken ?Type nitroglycerin 0.4 mg sublingual 0.4 mg sublingual Q5M PRN Chest 11/21/19 09/16/25 10/21/20 History tablet (Nitrostat) Pain 2 tabs omeprazole 20 mg capsule,delayed 20 mg PO BID PRN Acid Reflux 01/16/20 09/16/25 10/21/20 History release amlodipine 5 mg tablet 10 mg (2 x 5 mg) PO DAILY #14 tabs 01/07/22 09/16/25 Unknown Rx hydrocodone 7.5 mg-acetaminophen 1 tab PO Q8H PRN Pain 04/20/23 09/16/25 Unknown History 325 mg tablet furosemide 40 mg tablet 40 mg PO DAILY 12/29/24 09/16/25 Unknown History ketoconazole 2 % shampoo See Rx Instructions .Route .COMPLEX 09/16/25 09/16/25 Unknown History lisinopril 20 mg tablet 20 mg PO BID 09/16/25 09/16/25 Unknown History Allergies Allergy/AdvReac Type Severity Reaction Status Date / Time amoxicillin (From Augmentin) Allergy ALGY-Rash Verified 08/31/25 10:19 clavulanic acid (From Allergy ALGY-Rash Verified 08/31/25 10:19 Augmentin) clopidogrel (From Plavix) Allergy ALGY-Joint Verified 08/31/25 10:19 Pain Spefdkw-EUR-BpX Reductase Allergy ADV-Weaknes Verified 08/31/25 10:19 Inhibitor (Dlvdloc-Rgu-Cie s Reductase Inhibitor) sulfamethoxazole (From Allergy ALGY-Rash Verified 08/31/25 10:19 Bactrim) trimethoprim (From Bactrim) Allergy ALGY-Rash Verified 08/31/25 10:19 Current Medications Generic Name Dose Route Start Last Admin Trade Name Freq PRN Reason Stop Dose Admin AMIODARONE HCL/D5W 900 mg in 500 mls @ 0 mls/hr 09/16/25 08:30 09/16/25 08:32 Amiodarone 900 Mg/500 Ml-D5w IV 1 mg/min .Q0M LAURA 33.33 mls/hr Protocol Administration Per Protocol Tirofiban/Sodium Chloride 5 mg in 100 mls @ 0 mls/hr 09/16/25 11:00 09/16/25 12:39 Aggrastat IV 0.14 mcg/kg/min .Q0M LAURA 16.2 mls/hr Protocol Administration Per Protocol Norepinephrine Bitartrate 4 mg in 250 mls @ 0 mls/hr 09/16/25 11:00 09/16/25 13:20 Levophed IV 0 mcg/min .Q0M LAURA 0 mls/hr Protocol Titration Per Protocol Ondansetron HCl 4 mg 09/16/25 11:36 09/16/25 12:00 Ondansetron 2 Mg/Ml Sdv 2 Ml IVP 4 mg Q4H PRN Administration NAUSEA AND VOMITING PFSH Acute PFSH: Medical History Aortic stenosis Bilateral hydrocele Elevated PSA BPH with obstruction/lower urinary tract symptoms Hypertension Coronary artery disease history of CABG x3, 10/2011 Superficial thrombophlebitis DVT (deep venous thrombosis) Surgical History History of [place] fundoplication S/P TURP (status post transurethral resection of prostate) History of hernia repair Hx of CABG H/O angioplasty History of cholecystectomy H/O transurethral resection of prostate 03/2018 Family History Brother CAD (coronary artery disease) Father CAD (coronary artery disease) Hyperlipidemia Hypertension Mother Cancer Sister Cancer Diabetes Son Diabetes Denies family history of Clotting disorder Dementia Psychiatric illness Chronic kidney disease (CKD) Suicide Anesthesia complication Bleeding disorder Family history of premature coronary artery disease Stroke Social History Smoking and tobacco/nicotine status: unknown if used tobacco/nicotine Second hand smoke exposure: Yes Alcohol intake: current Substance/Drug Use: unknown Adopted: No Caregiver/support person: No Lives independently: No Household members: spouse Marital status: Current occupational status: retired Vitals/I&O/Wt Last Vital Signs Temp 97.0 F L 09/16/25 12:00 Pulse 93 09/16/25 14:01 Resp 14 09/16/25 14:00 BP 106/67 09/16/25 14:00 Pulse Ox 97 09/16/25 14:01 O2 Del Method BiPAP 09/16/25 14:00 O2 Flow Rate 3 09/16/25 08:05 FiO2 60 09/16/25 14:01 09/15/25 09/16/25 09/16/25 22:59 06:59 14:59 Intake Total 101.000 / 101.000 Balance 101.000 / 101.000 Weight last 48 hrs Weight 95.799 kg Weight 88.496 kg Physical Exam Narrative: General: Alert and oriented, lying comfortably without any distress on BiPAP and able to complete his sentences HEENT: Normocephalic, atraumatic, grossly unremarkable exam Cardio: normal rate rhythm, normal S1-S2 without any murmurs, rubs, or gallops and JVD normal Respiratory: normal vascular breathing on auscultation without any wheezes, stridor, however the exam is limited because of the conducting sounds from the BiPAP GI: Abdomen soft, nontender, nondistended, normoactive bowel sounds present all 4 quadrants, Neuro: intact cranial nerves motor and sensory and cerebellar/coordination function without any focal neurological deficit Behavior: Appropriate and cooperative Extremities: Adequate palpable pulses, bilateral pitting edema Data 09/16/25 06:22 09/16/25 06:44 A&P Assessment and plan 1. 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 Lumbar radiculopathy: Adequate analgesia to be provided as per the pain scale 3. Aortic stenosis: Echo to follow 4. BPH with obstruction/lower urinary tract symptoms: Patient on Wu's catheter, monitor for intake and output Home medication reviewed, hold tamsulosin since the patient blood pressure was on the softer side and required norepinephrine 5. Hypertension: Hold off any antihypertensive at the moment since the patient blood pressure on the lower side Plan: VTE: Heparin 5000 units twice daily Diet: Cardiac diet PPI for GI prophylaxis PDMP PDMP Reviewed: Not Reviewed Consult Attestations Medical Necessity Statement: Patient will stay more than 2 midnights for the management of STEMI s/p cardiac stenting Time Spent in Patient Care: 16 - 35 minutes (>than 50% of time spent in counselling and/or direct pt care on unit). Critical Care Time: The high probability of a clinically significant, sudden or life threatening deterioration of the patient's [] system(s) required my full and direct attention, intervention and personal management. The critical care time is as shown. This time is in addition to time spent performing any reported procedures but includes the following: [x] Data and vital sign review and interpretation [x] Patient assessment, examination and intervention [x] Documentation [x] Medication orders and management Critical Care Time (min): 35 Other Attestations: Other Attestations: Patient condition has been discussed at length with the patient/family, I have independently reviewed the chart labs imaging/diagnostics/EKG. the goals of care and code status with the patient/family/NOK/legal sales representative printing paper, and documented accordingly. The management has been done according to the current clinical condition with respect to patient goals of care and based on recommendations/guidelines. The patient/family has been informed about the current condition and further plan of care. Agreed with the plan of care and understood without any language barrier. Every effort was made to ensure accuracy of automotive parts interpreter. Any obvious errors or omissions should be clarified with the author of the document. Coding Level of Care Code Critical Care >/= [address] elevation (STEMI) myocardial infarction I21.3 Lumbar radiculopathy M54.16 Aortic stenosis I35.0 BPH with obstruction/lower urinary tract symptoms N40.1; N13.8 Hypertension I10
[2025-09-16] MEDS: nitroglycerin drip 50 MG/250 ML PREMIX IV (15:01)
[2025-09-16] MEDS: alum-mag-hydroxide-sime 30 mL UDC PO (15:02)
[2025-09-16 15:18] LABS: Cholesterol 235 mg/dL (0-200); HDL Cholesterol 62 mg/dL (60-100); Thyroid Stimulating Hormone 2.67 uIU/mL (0.27-4.20); Triglycerides 131 mg/dL (0-150)
--- NOTE | 2025-09-16 15:25 | PC.NURSE ---
Verified Heparin order with Dr Hunter, states that he will talk to Dr. Dobbins. Order adjusted to start tomorrow. Dr. Saldana to bedside, notified him of continued chest pain and runs of v-tach. Order given to start Nitroglycerin IV at 5 and adjust as needed and tolerated per blood pressure.
[2025-09-16 15:41] LABS: Estmated Average Glucose 120; Hemoglobin A1C 5.8 % (4.0-6.0)
[2025-09-16 16:32] LABS: Partial Thromboplastin Time 57.3 SECONDS (23.9-36.7)
[2025-09-16 16:41] LABS: Anion Gap 23.3 (5-19); Blood Urea Nitrogen 15 mg/dL (8-23); Calcium 8.8 mg/dL (8.5-10.5); Carbon Dioxide 18 mmol/L (22-29); Chloride 101 mmol/L (98-107); Glucose 208 mg/dL (65-115); Magnesium 2.0 mg/dL (1.7-2.3); Osmolality Calculated 293 mOsm/kg (285-295); Potassium 4.3 mmol/L (3.5-5.1); Sodium 138 mmol/L (136-145)
[2025-09-16 16:43] LABS: Troponin 5 6HR 3589 ng/L (0-15); Troponin 5 6HR Delta 3568 ng/L (0-12)
[2025-09-16] MEDS: FUROsemide 10 mg/mL SDV 4mL 40 MG IVP (17:25)
[2025-09-16 18:26] LABS: Partial Thromboplastin Time 21.6 SECONDS (23.9-36.7)
[2025-09-16] MEDS: fentaNYL 50 mcg/mL INJ 2mL IVP ×2 (21:52→23:19)
--- NOTE | 2025-09-16 23:26 | PC.NURSE ---
Sheath pull complete at 2310. Some oozing present, very small hematoma noted just above insertion site. Site covered with dressing and only scant drainage present.
[2025-09-17] VITALS (71 sets, daily range): BP systolic 71–142; BP diastolic 40–119; PULSE 72–124; RESP 4–32; TEMP 36.2–37; O2SAT 85–99
[2025-09-17] MEDS: metoclopramide 5 mg/mL SDV 2 mL IVP ×3 (00:41→20:14)
[2025-09-17 04:18] LABS: Hematocrit 40.7 % (37-53); Hemoglobin 13.60 g/dL (11.27-16.99); Mean Corpuscular HGB Conc 33.4 g/dL (30-55); Mean Corpuscular Hemoglobin 32.2 pg (27-33); Mean Corpuscular Volume 96.2 fl (82-101); Nucleated Red Blood Cells % 0 %; Platelet Count 230 10^3/cmm (157-399); Red Blood Count 4.23 10^6/uL (3.85-5.65); White Blood Count 19.30 10^3/uL (3.29-11.43)
[2025-09-17 04:49] LABS: Alanine Aminotransferase 98 U/L (0-41); Albumin Level 3.9 g/dL (3.5-5.2); Alkaline Phosphatase 75 U/L (40-130); Anion Gap 22.6 (5-19); Aspartate Amino Transferase 391 U/L (0-40); Blood Urea Nitrogen 23 mg/dL (8-23); Calcium 8.9 mg/dL (8.5-10.5); Carbon Dioxide 18 mmol/L (22-29); Chloride 103 mmol/L (98-107); Globulin 2.7 g/dL (1.3-4.6); Glucose 211 mg/dL (65-115); Osmolality Calculated 298 mOsm/kg (285-295); Potassium 4.6 mmol/L (3.5-5.1); Sodium 139 mmol/L (136-145); Total Protein 6.6 g/dL (6.6-8.7)
[2025-09-17] MEDS: HYDROcodone-acetaminophen 7.5-325 mg Tablet 1 TAB PO ×2 (04:57→17:47)
[2025-09-17] MEDS: pantoprazole 40 mg SDV IVP (04:58)
[2025-09-17] MEDS: AMIODARONE HCL/D5W 900 MG/500 ML BAG IV (05:21)
--- NOTE | 2025-09-17 06:04 | PC.NURSE ---
Despite numerous attempts at education and intervention throughout the shift, patient unable to tolerate both Bipap due to nausea and vomiting, or heated high flow due to too uncomfortable . Patient generally tolerated 15L High Flow nasal canula.
--- NOTE | 2025-09-17 08:34 | PM.PN ---
Subjective Subjective: Patient does not have significant chest pain today. EF is 30-35% on echo. Vitals/I&O/Wt Last Vital Signs Temp 97.6 F 09/17/25 08:00 Pulse 99 09/17/25 08:00 Resp 22 H 09/17/25 08:00 BP 111/64 09/17/25 08:00 Pulse Ox 90 09/17/25 08:00 O2 Del Method High Flow Nasal Cannula 09/17/25 08:00 O2 Flow Rate 15 09/17/25 08:00 FiO2 70 09/17/25 04:00 09/16/25 09/17/25 09/17/25 22:59 06:59 14:59 Intake Total 425.92 / 561.480 357.88 / 919.360 Output Total 1750 / 1750 300 / 2050 Balance -1324.08 / -1188.520 57.88 / -1130.640 Weight last 48 hrs Weight 200 lb 4.8 oz Weight 211 lb 3.2 oz Weight 195 lb 1.6 oz Physical Exam Narrative: GENERAL: Patient is alert, awake and oriented x3. [] NECK: No jugular vein distension. [] HEENT: No cyanosis. No icterus. No pallor. [] HEART: Regular S1 and S2. No murmur, rub or gallop. [] LUNGS: Bilateral crackles CENTRAL NERVOUS SYSTEM: Grossly nonfocal. [] EXTREMITIES: Lower extremities with 1+ edema bilaterally. Data 09/17/25 03:48 09/17/25 14:57 A&P Assessment and plan 1. ST elevation (STEMI) myocardial infarction: 2. Coronary artery disease: 3. Hypertension: 4. Aortic stenosis: 5. Heart failure with reduced ejection fraction: 6. Acute kidney injury: Plan: Patient had PCI of SVG to diagonal artery and SVG to LAD yesterday. He has severe LV dysfunction. Has BRANDYN secondary to hypotension yesterday and contrast induced nephropathy. Continue aspirin and plavix Likely will need dialysis as has volume overload, high O2 requirement and urine output is minimal. Medicine team on board, they may consult nephrology. Appreciate input PDMP PDMP Reviewed: Not Reviewed Attestations Medical Necessity Statement*: Care expected to cross 2 midnights. Coding Level of Care Code Acute Code for [facility] Fw Diagnoses ST elevation (STEMI) myocardial infarction I21.3 Coronary artery disease I25.10 Hypertension I10 Aortic stenosis I35.0 Heart failure with reduced ejection fraction I50.20 Acute kidney injury N17.9
--- NOTE | 2025-09-17 08:35 | XRR_ITS ---
PROCEDURE INFORMATION: Exam: XR Chest Exam date and time: 09/17/2025 9:47 AM Age: 85 years old Clinical indication: Shortness of breath and other: F/u cxr; Prior surgery; Surgery date: 6+ months; Surgery type: Cabg marily; Additional info: Increased oxygen demands TECHNIQUE: Imaging protocol: Radiologic exam of the chest. Views: 1 view. COMPARISON: CR (CHEST, ) 09/16/2025 11:50 AM FINDINGS: Lungs: Increasing interstitial and airspace opacities throughout the left lung. Increasing right basilar opacities. Pleural spaces: Unremarkable. No pleural effusion. No pneumothorax. Heart/Mediastinum: Stable cardiomediastinal silhouette. Bones/joints: Post median sternotomy. Old rib fracture deformities again seen. XR/XR chest 1V portable [id number] IMPRESSION: 1. Increasing interstitial and airspace opacities throughout the left lung, possibly atelectasis versus pulmonary edema. Atypical infection not excluded. 2. Right basilar opacities may represent worsening atelectasis.
[2025-09-17] MEDS: FUROsemide 10 mg/mL SDV 10mL 60 MG IVP (09:38)
[2025-09-17] MEDS: heparin 5,000 unit/mL INJ 1 mL 5000 UNIT SUBCUT ×2 (09:44→23:52)
--- NOTE | 2025-09-17 10:09 | PC.NURSE ---
904 -- Patient noted to be in respiratory distress, coughing up pink frothy sputum, and lung sounds noted to have loud crackles. Patient reports feeling short of breath. RT notified and patient placed on Bipap. Patient noted to be diaphoretic and tachycardia noted on potline monitor. 921 -- Notied Dr. Hunter. Patient pulling at Bipap and states I can't stand this. Xanax 0.25mg given po as ordered for anxiety and pressures adjusted per Debbi, RT. 924 -- Dr. Hunter to bedside, chest x-ray reviewed. Order given to give Lasix 60mg IV x 1 dose now. 1000 -- Resting comfortably in chair at bedside wearing Bipap. Respirations even and unlabored. HR 84.
--- NOTE | 2025-09-17 10:50 | P.PN_ITS ---
Subjective 2 Subjective: the patient was seen in the morning and was sitting on the chair, with blipap having signs and symptoms of flash pulm edema able to speak in full sentences and alert and awake. no chest pain at the moment Vitals/I&O/Wt Last Vital Signs Temp 97.6 F 09/17/25 08:00 Pulse 83 09/17/25 10:03 Resp 24 H 09/17/25 10:03 BP 99/66 09/17/25 10:00 Pulse Ox 96 09/17/25 10:03 O2 Del Method BiPAP 09/17/25 10:03 O2 Flow Rate 15 09/17/25 09:00 FiO2 60 09/17/25 10:03 09/16/25 09/17/25 09/17/25 22:59 06:59 14:59 Intake Total 425.92 / 561.480 357.88 / 919.360 216.5 / 216.5 Output Total 1750 / 1750 300 / 2050 Balance -1324.08 / -1188.520 57.88 / -1130.640 216.5 / 216.5 Weight last 48 hrs Weight 90.855 kg Weight 95.799 kg Weight 88.496 kg Physical Exam 2 Narrative: General: Alert and oriented, lying on the chair with mild discomfort due to sob and on BIPAP, able to speak in full sentences HEENT: Normocephalic, atraumatic, grossly unremarkable exam Cardio: normal rate rhythm, normal S1-S2 without any murmurs, JVD cant be observed since the patient had thick short neck and was sitting on the chair with BIPAP machine Respiratory: bilateral coarse and fine crackles without wheezes can be heard throughout the lungs from upper mid zone to lower zone, no stridor, conducting sounds from the BIPAP also appreciated GI: Abdomen soft, nontender, mild distended likely from bipap, normoactive bowel sounds present all 4 quadrants, Neuro: intact cranial nerves motor and sensory and cerebellar/coordination function without any focal neurological deficit Behavior: Appropriate and cooperative Extremities: Adequate palpable pulses, bilateral pitting edema Data 09/17/25 03:48 09/17/25 03:48 A&P Assessment and plan 1. Other elevated white blood cell (WBC) count: worsening WBCS, could be stress vs infection? possible atypical pneumonia? blood cultures and urine cultures, CXR reviewed and showed features of atelectasis and consolidation Resp viral panel and covid/flu swab ceftriaxone and azithromycin incentive spirometry chest physiotherapy scheduled Nebs ( pt use to be smoker but never been diagnosed with COPD?) monitor hemodynamics and cont pulse Ox 2. Flash pulmonary edema: on bipap stat lasix 60mg + 20mgiv pt not diagnosed with COPD but use to smoke ciggarettes budosenide, levalbuterol and ipratropium stat once cont to monitor vitals and pulse o2 3. Acute kidney injury: multifactorial considering contrast exposure, having pulm edema and therefore could be congestive kidneys? avoid fluids considering patient is having pulm edema IV lasix 60mg stat and to monitor I/O if the patient is resistant to diuresis and worsening fluid overload, consider renal input for further management and considering UF? 4. 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 - nitro infusion for chest pain as per cards - Patient off NE and maintaining MAP above 65mmhg - Amiodarone drip since the patient had some PVCs and follow the cards recommendation - Monitor intake and output, and weight base analysis - Monitoring and correction of electrolytes - Keep MAP above 65 - Telemetry - echo reported: 30-35% EF - TSH mukul,hb1c: normal range and lipid panel reviewed 5. Heart failure with reduced ejection fraction: EF: 30-35%, having pulm edema lasix total 80mg iv stat, also having BRANDYN? multifactorial rest plan as above 6. Lumbar radiculopathy: Adequate analgesia to be provided as per the pain scale 7. Nonrheumatic aortic valve stenosis: Stable, echo reported: Aortic valve is thickened and calcified. Doppler signal is inadequate to assess aortic stenosis. 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 Essential hypertension: Hold off any antihypertensive at the moment since the patient blood pressure on the lower side Plan: VTE: Heparin 5000 units twice daily Diet: Cardiac diet PPI for GI prophylaxis PDMP PDMP Reviewed: Not Reviewed Attestations 2 Medical Necessity Statement*: Patient will stay more than 2 midnights for the management of STEMI s/p cardiac stenting and for management of flash pulm edema Time Spent in Patient Care: 16 - 35 minutes (>than 50% of time sp ent in counselling and/or direct pt care on unit) . Critical Care Time: The high probability of a clinically significant, sudden or life threatening deterioration, as referenced in this documentation, required my full and direct attention, intervention and personal management. The critical care time shown is in addition to time spent performing any reported separately billable procedures and includes the following: [x] Data and vital sign review and interpretation [x ] Patient assessment, examination and intervention [x] Medication orders and management [x] Patient/Family updates as able [x] Care Coordination and Documentation. Critical Care Time (min): 35 Other Attestations: Patient condition has been discussed at length with the patient/family, I have independently reviewed the chart labs imaging/diagnostics/EKG. the goals of care and code status with the patient/family/NOK/legal inside outside sales representative, and documented accordingly. The management has been done according to the current clinical condition with respect to patient goals of care and based on recommendations/guidelines. The patient/family has been informed about the current condition and further plan of care. Agreed with the plan of care and understood without any language barrier. Every effort was made to ensure accuracy of general sales manager. Any obvious errors or omissions should be clarified with the author of the document. Coding Level of Care Code Critical Care >/= 30 minutes Diagnoses Other elevated white blood cell (WBC) count D72.828 Leukocytosis type: other Flash pulmonary edema J81.0 Acute kidney injury N17.9 ST elevation (STEMI) myocardial infarction I21.3 Heart failure with reduced ejection fraction I50.20 Lumbar radiculopathy M54.16 Nonrheumatic aortic valve stenosis I35.0 Cardiac valve disease etiology: nonrheumatic BPH with obstruction/lower urinary tract symptoms N40.1; N13.8 Essential hypertension I10 Hypertension type: essential hypertension
[2025-09-17] MEDS: FUROsemide 10 mg/mL SDV 2mL 20 MG IVP (11:21)
[2025-09-17] MEDS: cefTRIAXone 1,000 mg SDV 1000 MG IVP (11:26)
[2025-09-17 11:54] LABS: Glucose Urine UA Trace (Normal); Nitrate Urine Negative (Negative)
[2025-09-17 12:00] LABS: Add Urine Microscopic? YES
[2025-09-17 12:20] LABS: Specific Gravity, Urine 1.068 (1.005-1.030); UA Slide Review UA Slide Review Perf
[2025-09-17 12:31] LABS: Respiratory Syncytial Virus Ce NEGATIVE (Negative); SARS-CoV-2 PCR NEGATIVE (Negative)
[2025-09-17] MEDS: ondansetron 2 mg/ML SDV 2 mL 4 MG IVP (12:42)
--- NOTE | 2025-09-17 13:25 | PC.NURSE ---
Notified Dr. Hunter of no urine output since extra 20mg lasix was given.
--- NOTE | 2025-09-17 14:43 | PM.CONSULT ---
Providers/Reason For Consult Consulting Physician/Specialty*: [facility]/Nephrology Reason for Consult*: BRANDYN Attending Physician: Richar Dobbins M.D Primary Care Provider: Brandon Lopez MD History of Present Illness History of Present Illness Anish Colon is a 85 year old male Patient is 85-year-old male with past medical history significant for hypertension coronary artery disease prior CABG in 2011 initially presented to the hospital due to nausea and abdominal discomfort also complained of worsening lower extremity edema. EKG showed ST elevation [place]. Patient was emergently taken to [facility] and found to have multivessel disease. Echocardiogram showed ejection fraction 30 to 35%. He had 5 stents placed. Postprocedure patient continued to have shortness of breath and was placed on BiPAP and transferred to ICU. Chest x-ray this morning showed pulmonary edema. Patient received CT chest with IV contrast on presentation and PE was ruled out. Creatinine was 0.8 previously and now worsened to 1.6 and became oliguric in the last 12 hours. He did not respond to 60 mg IV Lasix this a.m. He continues to be on BiPAP currently and in mild respiratory distress. Review of Systems Narrative: negative Medications/Allergies Home Medications ?Medication ?Instructions ?Recorded ?Confirmed ?Last Taken ?Type nitroglycerin 0.4 mg sublingual 0.4 mg sublingual Q5M PRN Chest 11/21/19 09/16/25 10/21/20 History tablet (Nitrostat) Pain 2 tabs omeprazole 20 mg capsule,delayed 20 mg PO BID PRN Acid Reflux 01/16/20 09/16/25 10/21/20 History release amlodipine 5 mg tablet 10 mg (2 x 5 mg) PO DAILY #14 tabs 01/07/22 09/16/25 Unknown Rx hydrocodone 7.5 mg-acetaminophen 1 tab PO Q8H PRN Pain 04/20/23 09/16/25 Unknown History 325 mg tablet furosemide 40 mg tablet 40 mg PO DAILY 12/29/24 09/16/25 Unknown History ketoconazole 2 % shampoo See Rx Instructions .Route .COMPLEX 09/16/25 09/16/25 Unknown History lisinopril 20 mg tablet 20 mg PO BID 09/16/25 09/16/25 Unknown History Allergies Allergy/AdvReac Type Severity Reaction Status Date / Time amoxicillin (From Augmentin) Allergy ALGY-Rash Verified 08/31/25 10:19 clavulanic acid (From Allergy ALGY-Rash Verified 08/31/25 10:19 Augmentin) clopidogrel (From Plavix) Allergy ALGY-Joint Verified 08/31/25 10:19 Pain Eqtvpbk-HOJ-TlZ Reductase Allergy ADV-Weaknes Verified 08/31/25 10:19 Inhibitor (Bssudzr-Kyb-Fai s Reductase Inhibitor) sulfamethoxazole (From Allergy ALGY-Rash Verified 08/31/25 10:19 Bactrim) trimethoprim (From Bactrim) Allergy ALGY-Rash Verified 08/31/25 10:19 Current Medications Generic Name Dose Route Start Last Admin Trade Name Freq PRN Reason Stop Dose Admin Hydrocodone Bitart/Acetaminophen 1 tab 09/16/25 14:29 09/17/25 04:57 Hydrocodone-Acetaminophen 7.5-325 Mg Tablet PO 1 tab Q8H PRN Administration PAIN Al Hydrox/Mg Hydrox/Simethicone 30 ml 09/16/25 14:30 09/17/25 10:30 Sxgh-Cxl-Vbpidpfjj-Hoda 30 Ml Udc PO Not Given Q4H LAURA Alprazolam 0.25 mg 09/16/25 10:46 09/17/25 09:24 Alprazolam 0.5 Mg Tablet PO 0.25 mg TID PRN Administration ANXIETY Aspirin 81 mg 09/17/25 05:00 09/17/25 04:58 Aspirin 81 Mg Ec Tablet PO 81 mg DAILY LAURA Administration Ceftriaxone Sodium 1,000 mg 09/17/25 11:15 09/17/25 11:26 Ceftriaxone 1,000 Mg Sdv IVP 1,000 mg Q24H LAURA Administration Protocol Clopidogrel Bisulfate 75 mg 09/17/25 05:00 09/17/25 04:58 Clopidogrel 75 Mg Tablet PO 75 mg DAILY LAURA Administration Heparin Sodium (Porcine) 5,000 unit 09/17/25 10:00 09/17/25 09:44 Heparin 5,000 Unit/Ml Inj 1 Ml SUBCUT 5,000 unit Q12H LAURA Administration AMIODARONE HCL/D5W 900 mg in 500 mls @ 0 mls/hr 09/16/25 08:30 09/17/25 05:21 Amiodarone 900 Mg/500 Ml-D5w IV 0.01 mg/min .Q0M LAURA 0.5 mls/hr Protocol Administration Per Protocol Norepinephrine Bitartrate 4 mg in 250 mls @ 0 mls/hr 09/16/25 11:00 09/16/25 13:20 Levophed IV 0 mcg/min .Q0M LAURA 0 mls/hr Protocol Titration Per Protocol Nitroglycerin/Dextrose 50 mg in 250 mls @ 0 mls/hr 09/16/25 14:45 09/17/25 12:33 Nitroglycerin Drip IV 0 mcg/min .Q0M LAURA 0 mls/hr Protocol Titration Per Protocol Azithromycin 500 mg/ Sodium 250 mls @ 250 mls/hr 09/17/25 11:15 09/17/25 12:32 Chloride IV Infused Q24H LAURA Infusion Protocol Ipratropium [place] 0.5 mg 09/17/25 14:00 09/17/25 14:19 Ipratropium 0.5 Mg/2.5 Ml Neb INHALATION 0.5 mg Q6H.RESP LAURA Administration Levalbuterol HCl 1.25 mg 09/17/25 14:00 09/17/25 14:19 Levalbuterol 1.25 Mg/3 Ml Neb INHALATION 1.25 mg Q6H.RESP LAURA Administration Metoclopramide HCl 5 mg 09/17/25 00:31 09/17/25 09:05 Metoclopramide 5 Mg/Ml Sdv 2 Ml IVP 5 mg Q6H PRN Administration NAUSEA AND VOMITING Ondansetron HCl 4 mg 09/16/25 11:36 09/17/25 12:42 Ondansetron 2 Mg/Ml Sdv 2 Ml IVP 4 mg Q4H PRN Administration NAUSEA AND VOMITING Pantoprazole Sodium 40 mg 09/17/25 05:00 09/17/25 04:58 Pantoprazole 40 Mg Sdv IVP 40 mg DAILY LAURA Administration Senna 17.2 mg 09/16/25 21:00 09/16/25 20:17 Sennosides 8.6 Mg Tablet PO Not Given BEDTIME LAURA Temazepam 15 mg 09/16/25 10:46 09/17/25 01:55 Temazepam 15 Mg Capsule PO 15 mg BEDTIME PRN Administration INSOMNIA PFSH Acute PFSH: Medical History (Updated 09/17/25 @ 11:15 by Humble Hunter MD) Aortic stenosis Bilateral hydrocele Elevated PSA BPH with obstruction/lower urinary tract symptoms Hypertension Coronary artery disease history of CABG x3, 10/2011 Superficial thrombophlebitis DVT (deep venous thrombosis) Surgical History History of [place] fundoplication S/P TURP (status post transurethral resection of prostate) History of hernia repair Hx of CABG H/O angioplasty History of cholecystectomy H/O transurethral resection of prostate 03/2018 Family History Brother CAD (coronary artery disease) Father CAD (coronary artery disease) Hyperlipidemia Hypertension Mother Cancer Sister Cancer Diabetes Son Diabetes Denies family history of Clotting disorder Dementia Psychiatric illness Chronic kidney disease (CKD) Suicide Anesthesia complication Bleeding disorder Family history of premature coronary artery disease Stroke Social History Smoking and tobacco/nicotine status: unknown if used tobacco/nicotine Second hand smoke exposure: Yes Alcohol intake: current Substance/Drug Use: unknown Adopted: No Caregiver/support person: No Lives independently: No Household members: spouse Marital status: Current occupational status: retired Vitals/I&O/Wt Last Vital Signs Temp 98.0 F 09/17/25 12:00 Pulse 100 09/17/25 14:34 Resp 20 H 09/17/25 14:20 BP 101/62 09/17/25 14:00 Pulse Ox 92 09/17/25 14:20 O2 Del Method High Flow Nasal Cannula 09/17/25 14:20 O2 Flow Rate 13 09/17/25 14:20 FiO2 60 09/17/25 12:00 09/16/25 09/17/25 09/17/25 22:59 06:59 14:59 Intake Total 425.92 / 561.480 357.88 / 919.360 590.325 / 590.325 Output Total 1750 / 1750 300 / 2050 Balance -1324.08 / -1188.520 57.88 / -1130.640 590.325 / 590.325 Weight last 48 hrs Weight 90.855 kg Weight 95.799 kg Weight 88.496 kg Physical Exam Narrative: awake , alert , on BIPAP + Distress peerla S1S2 RRR Lungs with riky crackles abd - soft , non tender Ext- 2+ edema Skin No rash Data 09/17/25 03:48 09/17/25 03:48 Micro: Microbiology 09/17/25 13:31 Blood Culture - Preliminary Blood SPECIMEN COLLECTED 09/17/25 13:30 Blood Culture - Preliminary Blood SPECIMEN COLLECTED A&P Assessment and plan 1. Acute kidney injury: Plan: 1. Acute kidney injury: Multifactorial--cardiorenal , IV contrast exposure - Creatinine worsening, oliguric, poor response to diuretics so far - Giving another dose of IV Lasix 80 mg and metolazone 2.5 mg now, repeat BMP, if no response to IV Lasix again we will request temporary HD catheter placement for ultrafiltration. Patient currently on BiPAP and blood pressures borderline in the 90s to 110s systolic. May require pressors during dialysis. Discussed with patient who agrees for temporary dialysis. 2. Acute respiratory failure with pulmonary edema, 3. ST elevation [place], status post left heart cath and 5 stents placed 4. CHF ejection fraction 30 to 35% Patient evaluated using audiovisual cart. Time spent 40 minutes. PDMP PDMP Reviewed: Not Reviewed Consult Attestations Medical Necessity Statement: per juni Coding Level of Care Code Acute Code for Chg Fwd Diagnoses Acute kidney injury N17.9
[2025-09-17] MEDS: FUROsemide 10 mg/mL SDV 10mL 80 MG IVP (14:49)
--- NOTE | 2025-09-17 14:52 | PC.NURSE ---
Dr. Wilkins rounded on patient. New orders given for meds and labwork. Updated Dr. Hunter.
--- NOTE | 2025-09-17 15:22 | PC.NURSE ---
Attempted to call Chanelle, patients daughter to update on patient status. No answer, message left.
[2025-09-17 15:25] LABS: Anion Gap 21.2 (5-19); Blood Urea Nitrogen 33 mg/dL (8-23); Calcium 8.6 mg/dL (8.5-10.5); Carbon Dioxide 16 mmol/L (22-29); Chloride 98 mmol/L (98-107); Glucose 313 mg/dL (65-115); Osmolality Calculated 291 mOsm/kg (285-295); Potassium 4.2 mmol/L (3.5-5.1); Sodium 131 mmol/L (136-145)
[2025-09-17 15:33] LABS: ABG PCO2 31.1 mmHg (35-45); ABG PH Result 7.41 (7.35-7.45); Arterial Blood Gas Hematocrit 39.6 % (42-52); Blood Gas Allen Test Pos; Blood Gas Sample Site Radial, right; Blood Gas Sample Type Arterial; Carboxyhemoglobin < 0.3 %THgb (0.4-20.1); Glucose Level-ABG 225.0 mg/dL (70-115); HCO3 ABG 19.8 mmol/L (22-26); Ionized Calcium Level - ABG 1.2 mmol/L (1.1-1.4); Methemoglobin < 0.0 % (0.4-1.5); Oxygen Saturation ABG 97.9; PO2 ABG 98.3 mmHg (80.0-100.0); Potassium Level - ABG 4.1 mmol/L (3.5-5.0); Sodium Level - ABG 136.0 mmol/L (131-143)
[2025-09-17 15:37] LABS: Alveolar-Arterial Oxygen Gradi 38.1 mmHg (5-10); Blood Gas Operator Identificat GD; PO2 FiO2 Ratio Arterial Blood 163
--- NOTE | 2025-09-17 15:38 | PC.NURSE ---
Updated daughter of patients current status and possibility of need for hemodialysis. Answered all questions.
--- NOTE | 2025-09-17 15:53 | PC.NURSE ---
Notified Dr. Wilkins of patients newest BMP results and 30mL urine. Order given to have hospitalist consult Dr. Coker to place HD cathater. Notified Dr. Hunter, states he will call Dr. Coker for line placement.
--- NOTE | 2025-09-17 17:31 | XRR_ITS ---
PROCEDURE INFORMATION: Exam: XR Chest Exam date and time: 09/17/2025 6:32 PM Age: 85 years old Clinical indication: Device placement; Other: Dialysis cath placement verification; Prior surgery; Surgery date: 6+ months; Surgery type: Cabg, marily, dialysis cath TECHNIQUE: Imaging protocol: Radiologic exam of the chest. Views: 1 view. COMPARISON: CR (CHEST, ) 09/17/2025 9:47 AM FINDINGS: Tubes, catheters and devices: Right-sided central venous catheter. Lungs: Bibasilar atelectasis or infiltrates on the right. Pleural spaces: No sizable pleural effusion or pneumothorax. Heart/Mediastinum: Unremarkable. No cardiomegaly. Bones/joints: Unremarkable. Other findings: Mild congestive changes. XR/XR chest 1V portable [id number] IMPRESSION: As above.
--- NOTE | 2025-09-17 17:38 | PM.CONSULT ---
Providers/Reason For Consult Consulting Physician/Specialty*: Dr. Villela general surgery Reason for Consult*: Dialysis catheter insertion Attending Physician: Richar Dobbins M.D Primary Care Provider: Brandon Lopez MD History of Present Illness History of Present Illness Anish Colon is a 85 year old male whom surgery was consulted for dialysis catheter placement. Patient recently had a heart cath. Now in renal failure. Rest of history noncontributory. Medications/Allergies Home Medications ?Medication ?Instructions ?Recorded ?Confirmed ?Last Taken ?Type nitroglycerin 0.4 mg sublingual 0.4 mg sublingual Q5M PRN Chest 11/21/19 09/16/25 10/21/20 History tablet (Nitrostat) Pain 2 tabs omeprazole 20 mg capsule,delayed 20 mg PO BID PRN Acid Reflux 01/16/20 09/16/25 10/21/20 History release amlodipine 5 mg tablet 10 mg (2 x 5 mg) PO DAILY #14 tabs 01/07/22 09/16/25 Unknown Rx hydrocodone 7.5 mg-acetaminophen 1 tab PO Q8H PRN Pain 04/20/23 09/16/25 Unknown History 325 mg tablet furosemide 40 mg tablet 40 mg PO DAILY 12/29/24 09/16/25 Unknown History ketoconazole 2 % shampoo See Rx Instructions .Route .COMPLEX 09/16/25 09/16/25 Unknown History lisinopril 20 mg tablet 20 mg PO BID 09/16/25 09/16/25 Unknown History Allergies Allergy/AdvReac Type Severity Reaction Status Date / Time amoxicillin (From Augmentin) Allergy ALGY-Rash Verified 08/31/25 10:19 clavulanic acid (From Allergy ALGY-Rash Verified 08/31/25 10:19 Augmentin) clopidogrel (From Plavix) Allergy ALGY-Joint Verified 08/31/25 10:19 Pain Uejqfru-TVO-RzN Reductase Allergy ADV-Weaknes Verified 08/31/25 10:19 Inhibitor (Lvmusln-Lej-Gyu s Reductase Inhibitor) sulfamethoxazole (From Allergy ALGY-Rash Verified 08/31/25 10:19 Bactrim) trimethoprim (From Bactrim) Allergy ALGY-Rash Verified 08/31/25 10:19 Current Medications Generic Name Dose Route Start Last Admin Trade Name Freq PRN Reason Stop Dose Admin Hydrocodone Bitart/Acetaminophen 1 tab 09/16/25 14:29 09/17/25 04:57 Hydrocodone-Acetaminophen 7.5-325 Mg Tablet PO 1 tab Q8H PRN Administration PAIN Al Hydrox/Mg Hydrox/Simethicone 30 ml 09/16/25 14:30 09/17/25 14:45 Jyda-Lxc-Jeysxrfap-Hoda 30 Ml Udc PO Not Given Q4H LAURA Alprazolam 0.25 mg 09/16/25 10:46 09/17/25 09:24 Alprazolam 0.5 Mg Tablet PO 0.25 mg TID PRN Administration ANXIETY Aspirin 81 mg 09/17/25 05:00 09/17/25 04:58 Aspirin 81 Mg Ec Tablet PO 81 mg DAILY LAURA Administration Ceftriaxone Sodium 1,000 mg 09/17/25 11:15 09/17/25 11:26 Ceftriaxone 1,000 Mg Sdv IVP 1,000 mg Q24H LAURA Administration Protocol Clopidogrel Bisulfate 75 mg 09/17/25 05:00 09/17/25 04:58 Clopidogrel 75 Mg Tablet PO 75 mg DAILY LAURA Administration Heparin Sodium (Porcine) 5,000 unit 09/17/25 10:00 09/17/25 09:44 Heparin 5,000 Unit/Ml Inj 1 Ml SUBCUT 5,000 unit Q12H LAURA Administration AMIODARONE HCL/D5W 900 mg in 500 mls @ 0 mls/hr 09/16/25 08:30 09/17/25 05:21 Amiodarone 900 Mg/500 Ml-D5w IV 0.01 mg/min .Q0M LAURA 0.5 mls/hr Protocol Administration Per Protocol Norepinephrine Bitartrate 4 mg in 250 mls @ 0 mls/hr 09/16/25 11:00 09/16/25 13:20 Levophed IV 0 mcg/min .Q0M LAURA 0 mls/hr Protocol Titration Per Protocol Nitroglycerin/Dextrose 50 mg in 250 mls @ 0 mls/hr 09/16/25 14:45 09/17/25 12:33 Nitroglycerin Drip IV 0 mcg/min .Q0M LAURA 0 mls/hr Protocol Titration Per Protocol Azithromycin 500 mg/ Sodium 250 mls @ 250 mls/hr 09/17/25 11:15 09/17/25 12:32 Chloride IV Infused Q24H LAURA Infusion Protocol Ipratropium [place] 0.5 mg 09/17/25 14:00 09/17/25 14:19 Ipratropium 0.5 Mg/2.5 Ml Neb INHALATION 0.5 mg Q6H.RESP LAURA Administration Levalbuterol HCl 1.25 mg 09/17/25 14:00 09/17/25 14:19 Levalbuterol 1.25 Mg/3 Ml Neb INHALATION 1.25 mg Q6H.RESP LAURA Administration Metoclopramide HCl 5 mg 09/17/25 00:31 09/17/25 09:05 Metoclopramide 5 Mg/Ml Sdv 2 Ml IVP 5 mg Q6H PRN Administration NAUSEA AND VOMITING Ondansetron HCl 4 mg 09/16/25 11:36 09/17/25 12:42 Ondansetron 2 Mg/Ml Sdv 2 Ml IVP 4 mg Q4H PRN Administration NAUSEA AND VOMITING Pantoprazole Sodium 40 mg 09/17/25 05:00 09/17/25 04:58 Pantoprazole 40 Mg Sdv IVP 40 mg DAILY LAURA Administration Senna 17.2 mg 09/16/25 21:00 09/16/25 20:17 Sennosides 8.6 Mg Tablet PO Not Given BEDTIME LAURA Temazepam 15 mg 09/16/25 10:46 09/17/25 01:55 Temazepam 15 Mg Capsule PO 15 mg BEDTIME PRN Administration INSOMNIA PFSH Acute PFSH: Medical History (Updated 09/17/25 @ 17:22 by Humble Hunter MD) Aortic stenosis Bilateral hydrocele Elevated PSA BPH with obstruction/lower urinary tract symptoms Hypertension Coronary artery disease history of CABG x3, 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 Superficial thrombophlebitis DVT (deep venous thrombosis) Surgical History History of [place] fundoplication S/P TURP (status post transurethral resection of prostate) History of hernia repair Hx of CABG H/O angioplasty History of cholecystectomy H/O transurethral resection of prostate 03/2018 Family History Brother CAD (coronary artery disease) Father CAD (coronary artery disease) Hyperlipidemia Hypertension Mother Cancer Sister Cancer Diabetes Son Diabetes Denies family history of Clotting disorder Dementia Psychiatric illness Chronic kidney disease (CKD) Suicide Anesthesia complication Bleeding disorder Family history of premature coronary artery disease Stroke Social History Smoking and tobacco/nicotine status: unknown if used tobacco/nicotine Second hand smoke exposure: Yes Alcohol intake: current Substance/Drug Use: unknown Adopted: No Caregiver/support person: No Lives independently: No Household members: spouse Marital status: Current occupational status: retired Vitals/I&O/Wt Last Vital Signs Temp 98.4 F 09/17/25 16:00 Pulse 92 09/17/25 16:04 Resp 19 H 09/17/25 16:00 BP 104/40 09/17/25 16:00 Pulse Ox 94 09/17/25 16:04 O2 Del Method BiPAP 09/17/25 16:00 O2 Flow Rate 13 09/17/25 14:20 FiO2 60 09/17/25 16:04 09/17/25 09/17/25 09/17/25 06:59 14:59 22:59 Intake Total 357.88 / 919.360 590.325 / 590.325 Output Total 300 / 0 Balance 57.88 / -1130.640 590.325 / 590.325 Weight last 48 hrs Weight 200 lb 4.8 oz Weight 211 lb 3.2 oz Weight 195 lb 1.6 oz Physical Exam Narrative: Neck: Grossly normal Chest: Labored breathing on BiPAP Heart: Regular rate and rhythm. Abdomen: Soft, nontender, nondistended. No masses or lymphadenopathy. Right groin small hematoma status post heart cath. Palpable pulses throughout Data 09/17/25 03:48 09/17/25 14:57 Micro: Microbiology 09/17/25 13:31 Blood Culture - Preliminary Blood SPECIMEN COLLECTED 09/17/25 13:30 Blood Culture - Preliminary Blood SPECIMEN COLLECTED A&P Assessment and plan 1. Acute kidney injury: Plan: 85-year-old male surgery was consulted for dialysis catheter insertion. Discussed risk and benefits and patient agreed to proceed with dialysis catheter insertion. PDMP PDMP Reviewed: Not Reviewed Coding Level of Care Code 03829 Diagnoses Acute kidney injury N17.9
--- NOTE | 2025-09-17 17:40 | P.PCN_ITS ---
Procedure/Consent Consent: Consent for Procedure: Consent obtained from patient Additional Consent Information: I had an extensive discussion with the patient and answered all questions. I have discussed non operative/non procedural options and the patient still decid es to proceed. Discussed risks and benefits of dialysis catheter insertion and patient decides to proceed. Patient understands the risks include bleeding, infection, arterial injury, stroke if the carotid artery is injured, leg ischemia of the femoral artery is injured, massive bleeding. Patient decides to proceed. Nurse present for discussion. Procedure Narrative: Discussed risks and benefits and consent was obtained to performed a temporary dialysis catheter. The right groin was prepped and draped in the usual sterile fashion. Ultrasound was used to identify the right common femoral vein. Local infiltration done using 5 cc of 1% lidocaine. A finder needle was used to access the right common femoral vein under ultrasound guidance. Able to draw venous blood. I then threaded a wire through the finder needle. I removed the needle and confirmed adequate placement of the wire in the right common femoral vein using ultrasound. Using an 11 blade a stab incision was done next to the wire to accommodate for the dilators. I serially dilated the tract using 2 dilators. The catheter bent and I was unable to insert it in the vein. The ICU ran out of 20 cm dialysis catheters and therefore I decided to abort and hold pressure at the area for 5 minutes. I then decided to attempt a right IJ dialysis catheter insertion. The right neck was prepped and draped in the usual sterile fashion. Ultrasound was used to identify the right internal jugular vein. Local infiltration done using 5 cc of 1% lidocaine. A finder needle was used to access the internal jugular vein under ultrasound guidance. Able to draw venous blood. I then threaded a wire through the finder needle. I removed the needle and confirmed adequate placeme nt of the wire in the internal jugular vein vein using ultrasound. Using an 11 blade a stab incision was done next to the wire to accommodate for the dilators. I serially dilated the tract using 2 dilators. I was then able to place the 16 cm dual-lumen temporary dialysis catheter using the Seldinger technique. I was able to draw blood and flushed easily through both lumens. Catheter was secured in place with sutures. A sterile dressing was applied. Catheter is ready for immediate use.
--- NOTE | 2025-09-17 18:00 | PC.NURSE ---
Dr. Coker to bedside. Attempt x 2 to right groin to place HD cath and HD cath successfully placed to right IJ. Patient tolerated well. Chest x-ray done to confirm placement of R IJ line. Dr. Coker at bedside and visualized x-ray, order given to use HD line for dialysis. Small hematoma noted to right groin, pressure applied and dressing placed on right groin, no further bleeding. Dr. Coker to bedside and notified of hematoma.
[2025-09-17 18:08] LABS: NT Pro B Type Natriuretic Pept 50880 pg/mL (0-450)
[2025-09-17 18:18] LABS: Hepatitis B Surface Antigen Non-Reactive (Nonreactive)
[2025-09-17] MEDS: norepinephrine 4 MG/250 ML BAG 15 MG IV (18:40)
--- NOTE | 2025-09-17 19:13 | PC.NURSE ---
Updated Chanelle, patients daughter that HD line has been placed and Dialysis started and he is doing well.
--- NOTE | 2025-09-17 19:32 | ECG_ITS ---
[facility] Date: 2025-09-17 Pat Name: Anish Colon Department: Room: ICU07 Gender: Male Manager Code: : 1940 Requested By: Richar Dobbins Order Number: [id number] Nicanor MD: Damián Earl M.D. Measurements Intervals Bland Rate: 115 P: 18 WY: 151 QRS: 209 QRSD: 146 T: 47 QT: 404 QTc: 561 Interpretive Statements SINUS TACHYCARDIA RIGHT AXIS DEVIATION [QRS AXIS > 100] RIGHT BUNDLE BRANCH BLOCK AND POSSIBLE RIGHT VENTRICULAR HYPERTROPHY [RBBB, 1.5 mV R IN V1, RAD] ANTEROSEPTAL MYOCARDIAL INFARCTION , PROBABLY RECENT [40+ ms Q WAVE IN V1-V4] ACUTE ID Compared to ECG 09/16/2025 12:54:56 Sinus rhythm no longer present Ventricular premature complex(es) no longer present Myocardial infarct finding still present Electronically Signed On 09-19-2025 20:07:46 ERRAND RUNNER by Damián Earl M.D. [email or web address]
--- NOTE | 2025-09-17 20:02 | PC.NURSE ---
Contacted Dr. Dobbins in reference to a rhythm change that appears to be a-fib on the patient's monitor. Advised of Levo and current VS as well as dialysis currently running. Received order to maintain amio drip for now, Dr. Dobbins will review EKG on chart and contact ICU with any further orders.
[2025-09-17] MEDS: morphine 4 mg/mL SDV 1 mL 2 MG IVP (20:53)
--- NOTE | 2025-09-17 22:09 | PC.HD ---
Pt developed a rapid cardiac rhythm with increasing ectopy, and symptomatic hypotension while on levophed. Dr Gonzalez ntfd and treatment terminated 30 minutes early.
[2025-09-18] VITALS (105 sets, daily range): BP systolic 80–131; BP diastolic 47–86; PULSE 81–121; RESP 15–30; TEMP 36.2–36.9; O2SAT 80–100
[2025-09-18] MEDS: HYDROcodone-acetaminophen 7.5-325 mg Tablet 1 TAB PO ×2 (02:33→14:47)
[2025-09-18] MEDS: morphine 4 mg/mL SDV 1 mL 2 MG IVP ×3 (02:33→21:26)
[2025-09-18 05:29] LABS: Hematocrit 34.9 % (37-53); Hemoglobin 11.60 g/dL (11.27-16.99); Mean Corpuscular HGB Conc 33.2 g/dL (30-55); Mean Corpuscular Hemoglobin 32.0 pg (27-33); Mean Corpuscular Volume 96.1 fl (82-101); Nucleated Red Blood Cells % 0 %; Platelet Count 144 10^3/cmm (157-399); Red Blood Count 3.63 10^6/uL (3.85-5.65); White Blood Count 18.03 10^3/uL (3.29-11.43)
[2025-09-18] MEDS: pantoprazole 40 mg SDV IVP (05:30)
[2025-09-18 05:49] LABS: Alanine Aminotransferase 88 U/L (0-41); Albumin Level 3.5 g/dL (3.5-5.2); Alkaline Phosphatase 67 U/L (40-130); Anion Gap 18.2 (5-19); Aspartate Amino Transferase 255 U/L (0-40); Blood Urea Nitrogen 29 mg/dL (8-23); Calcium 8.6 mg/dL (8.5-10.5); Carbon Dioxide 22 mmol/L (22-29); Chloride 97 mmol/L (98-107); Globulin 2.5 g/dL (1.3-4.6); Glucose 263 mg/dL (65-115); Magnesium 2.0 mg/dL (1.7-2.3); Osmolality Calculated 291 mOsm/kg (285-295); Potassium 4.2 mmol/L (3.5-5.1); Sodium 133 mmol/L (136-145); Total Protein 6.0 g/dL (6.6-8.7)
[2025-09-18 05:52] LABS: Lactate (Lactic Acid level) 3.3 mmol/L (0.5-2.2)
[2025-09-18] MEDS: AMIODARONE HCL/D5W 900 MG/500 ML BAG IV (07:40)
--- NOTE | 2025-09-18 08:06 | P.PN_ITS ---
Subjective 2 Subjective: SOB improved Medications: Reviewed: Yes Vitals/I&O/Wt Last Vital Signs Temp 98.2 F 09/18/25 04:00 Pulse 105 H 09/18/25 07:00 Resp 23 H 09/18/25 07:40 BP 109/60 09/18/25 07:00 Pulse Ox 95 09/18/25 07:40 O2 Del Method High Flow Nasal Cannula 09/18/25 07:00 O2 Flow Rate 10 09/18/25 07:00 FiO2 50 09/17/25 22:00 09/17/25 09/18/25 09/18/25 22:59 06:59 14:59 Intake Total 932.375 / 1522.700 669.250 / 2191.950 13.158 / 13.158 Output Total 2954 / 2954 Balance -2021.625 / -1431.300 669.250 / -762.050 13.158 / 13.158 Weight last 48 hrs Weight 89.857 kg Weight 92.7 kg Weight 90.855 kg Weight 95.799 kg Physical Exam 2 Narrative: awake , alert , no distress peerla S1S2 RRR Lungs with riky crackles abd - soft , non tender Ext- 2+ edema Skin No rash Urinary Catheter Management: Wu: Cath Placed During This Visit: no Reason for Continuing Indwelling Catheter: Accurate Measurement of Urinary Output in Critically Ill Patients Data 09/18/25 05:20 09/18/25 05:20 Micro: Microbiology 09/17/25 13:31 Blood Culture - Preliminary Blood SPECIMEN COLLECTED 09/17/25 13:30 Blood Culture - Preliminary Blood SPECIMEN COLLECTED A&P Assessment and plan 1. Acute kidney injury: Plan: 1. Acute kidney injury: Multifactorial--cardiorenal , IV contrast exposure - Creatinine was worsening, oliguric, poor response to diuretics so far - s/p temporary HD catheter placement and HD done thursday - HD again today 2. Acute respiratory failure with pulmonary edema, 3. ST elevation MA, status post left heart cath and 5 stents placed 4. CHF ejection fraction 30 to 35% Patient evaluated using audiovisual cart. Time spent 40 minutes. PDMP PDMP Reviewed: Not Reviewed Attestations 2 Medical Necessity Statement*: per [facility] Coding Level of Care Code Acute Code for g Fwd Diagnoses Acute kidney injury N17.9
--- NOTE | 2025-09-18 09:34 | PC.NURSE ---
Notified Dr. Hunter of low blood pressures and having to increase levophed with current rate at 8mcg/min and dialysis ordered for today. Dr. Hunter states that he will talk with nephrology. Dr. Dobbins to bedside, notified of current blood pressure and levophed rate. States to go up on levophed as needed and let Dr. Hunter and Dr. Wilkins decide what to do about dialysis.
[2025-09-18] MEDS: alum-mag-hydroxide-sime 30 mL UDC PO ×2 (09:44→14:31)
[2025-09-18] MEDS: heparin 5,000 unit/mL INJ 1 mL 5000 UNIT SUBCUT ×2 (10:07→21:27)
[2025-09-18] MEDS: norepinephrine 4 MG/250 ML BAG 37.5 MG IV (11:11)
--- NOTE | 2025-09-18 12:50 | PC.SOCIAL ---
IMM Update pg 2 of IMM Updated and reviewed w/ patient. Copy provided and copy dated, initialed and placed in chart.
[2025-09-18] MEDS: ondansetron 2 mg/ML SDV 2 mL 4 MG IVP (12:58)
[2025-09-18] MEDS: metoclopramide 5 mg/mL SDV 2 mL IVP ×2 (14:34→21:26)
--- NOTE | 2025-09-18 14:40 | P.PN_ITS ---
<Statement entered by Richar Dobbins M.D - 09/26/25 17:38> Patient was cared for in conjunction with an advanced practice practitioner.? I reviewed the chart and all pertinent data including imaging, telemetry, and laboratory results.? I discussed the patient in detail with the advanced practice practitioner.? Please see? their documentation for progress note, testing results and agreed upon plan of care for the patient. Subjective 2 Subjective: Patient getting dialysis today and tolerating well on levo at 10. Denies chest pain or incrased shortness of breath. Appears euvolemic on exam. Not making much urine. Vitals/I&O/Wt Last Vital Signs Temp 97.8 F 09/18/25 12:00 Pulse 110 H 09/18/25 14:15 Resp 18 09/18/25 14:15 BP 127/78 09/18/25 14:15 Pulse Ox 96 09/18/25 14:15 O2 Del Method Nasal Cannula 09/18/25 14:13 O2 Flow Rate 10 09/18/25 14:13 FiO2 50 09/17/25 22:00 09/17/25 09/18/25 09/18/25 22:59 06:59 14:59 Intake Total 932.375 / 1522.700 669.250 / 2191.950 793.150 / 793.150 Output Total 2954 / 2954 0 / 0 Balance -2021.625 / -1431.300 669.250 / -762.050 793.150 / 793.150 Weight last 48 hrs Weight 198 lb 1.6 oz Weight 204 lb 5.896 oz Weight 200 lb 4.8 oz Physical Exam 2 Narrative: General: No apparent distress HENMT: normoceophalic Muskuloskeletal: Full ROM Respiratory: Normal respiratory effort, clear on the left but right lower anterior lobe diminished, no use of accessory muscles Cardio: No JVD, regular rate, regular rhythm, S1 S2 normal, no murmurs, peripheral pulses 2+ radial palpated bilaterally GI: Normal to inspection, nondistended Extremities: Full ROM, normal, normal capillary refill, no cyanosis or edema Neuro: Alert and oriented x4 Psych: Affect normal, denies suicidal ideation, mental status grossly normal Skin: No rashes or lesions noted, no wounds Urinary Catheter Management: Wu: Cath Placed During This Visit: no Reason for Continuing Indwelling Catheter: Accurate Measurement of Urinary Output in Critically Ill Patients Data 09/18/25 05:20 09/18/25 05:20 Micro: Microbiology 09/17/25 13:31 Blood Culture - Preliminary Blood NEGATIVE TO DATE 09/17/25 13:30 Blood Culture - Preliminary Blood NEGATIVE TO DATE 09/17/25 11:27 Urine Culture - Preliminary Urine Catheterized A&P Assessment and plan 1. ST elevation (STEMI) myocardial infarction: 2. Coronary artery disease: 3. Hypertension: 4. Aortic stenosis: 5. Heart failure with reduced ejection fraction: 6. Acute kidney injury: Plan: S/P PCI to the vein grafts to LAD and diag. Continue asa and plavix. Continue with dialysis for fluid removal. Appears euvolemic on exam. We appreciate nephrology and the hospitalists assistance. PDMP PDMP Reviewed: Not Reviewed Attestations 2 Medical Necessity Statement*: Stay expected to cross 2 midnignts due to STEMI and BRANDNY requiring dialysis. Coding Level of Care Code Acute Code for [facility] Diagnoses ST elevation (STEMI) myocardial infarction I21.3 Coronary artery disease I25.10 Hypertension I10 Aortic stenosis I35.0 Heart failure with reduced ejection fraction I50.20 Acute kidney injury N17.9
[2025-09-18] MEDS: cefTRIAXone 1,000 mg SDV 1000 MG IVP (14:51)
[2025-09-18] MEDS: norepinephrine 4 MG/250 ML BAG 30 MG IV (17:47)
[2025-09-19] VITALS (100 sets, daily range): BP systolic 68–128; BP diastolic 37–77; PULSE 90–120; RESP 14–42; TEMP 36.2–37; O2SAT 82–100
[2025-09-19] MEDS: HYDROcodone-acetaminophen 7.5-325 mg Tablet 1 TAB PO ×3 (00:24→23:25)
--- NOTE | 2025-09-19 01:23 | P.PN_ITS ---
Subjective 2 Subjective: Patient getting dialysis today and tolerating well on levo at 10. Denies chest pain or incrased shortness of breath. Appears euvolemic on exam. Not making much urine. Medications: Reviewed: Yes Vitals/I&O/Wt Last Vital Signs Temp 97.1 F L 09/19/25 00:00 Pulse 106 H 09/19/25 00:30 Resp 21 H 09/19/25 00:30 BP 109/65 09/19/25 00:30 Pulse Ox 95 09/19/25 00:30 O2 Del Method High Flow Nasal Cannula 09/19/25 00:00 O2 Flow Rate 5 09/19/25 00:00 FiO2 50 09/17/25 22:00 09/18/25 09/18/25 09/19/25 14:59 22:59 06:59 Intake Total 793.150 / 723.471 1800.5 / 1901.650 42.375 / 1944.025 Output Total 0 / 0 3210 / 3210 Balance 793.150 / 793.150 -2101.5 / -1308.350 42.375 / -1265.975 Weight last 48 hrs Weight 90.7 kg Weight 89.857 kg Weight 92.7 kg Weight 90.855 kg Physical Exam 2 Narrative: General: Alert and oriented, lying on the chair, without any discomfort HEENT: Normocephalic, atraumatic, grossly unremarkable exam Cardio: normal rate rhythm, normal S1-S2 without any murmurs, normal JVD, hemodialysis catheter seen on the right side of the neck Respiratory: Equal air entry, no wheezes heard, no crackles appreciated, able to complete full sentences GI: Abdomen soft, nontender, mild distended likely from bipap, normoactive bowel sounds present all 4 quadrants, Neuro: intact cranial nerves motor and sensory and cerebellar/coordination function without any focal neurological deficit Behavior: Appropriate and cooperative Extremities: Adequate palpable pulses, bilateral pitting edema Urinary Catheter Management: Wu: Cath Placed During This Visit: no Reason for Continuing Indwelling Catheter: Accurate Measurement of Urinary Output in Critically Ill Patients Data 09/19/25 06:42 09/19/25 06:42 Micro: Microbiology 09/17/25 13:31 Blood Culture - Preliminary Blood NEGATIVE TO DATE 09/17/25 13:30 Blood Culture - Preliminary Blood NEGATIVE TO DATE 09/17/25 11:27 Urine Culture - Preliminary Urine Catheterized A&P Assessment and plan 1. Severe sepsis: Patient meets the criteria for severe sepsis Avoid aggressive fluid due to flash pulmonary edema Blood cultures and urine cultures prelim negative and follow the final report Continue ceftriaxone and azithromycin since the patient chest x-ray showed some infiltrate on the on the right side Lactate series Monitor intake and output Maintain MAP above 65 Patient requiring norepinephrine at the moment, mild decreased capillary refill Continue telemetry Oxygen therapy as per protocol to maintain oxygen sats above 92% 2. Other elevated white blood cell (WBC) count: worsening WBCS, could be stress vs infection? possible atypical pneumonia? blood cultures and urine cultures preliminary negative, chest x-ray reviewed And showed bibasilar atelectasis with some infiltrates on the right Resp viral panel and covid/flu swab to follow ceftriaxone and azithromycin incentive spirometry chest physiotherapy scheduled Nebs ( pt use to be smoker but never been diagnosed with COPD?) monitor hemodynamics and cont pulse Ox 3. 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 -Patient requiring intermittent norepinephrine since he is also requiring hemodialysis for his pulmonary edema, currently improvement is there however it is taking some time. - Telemetry monitoring - echo reported: 30-35% EF 4. Acute congestive heart failure: proBNP around 50,000's Patient having signs and symptoms of acute congestive heart failure since he has reduced ejection fraction Cannot continue with Lasix since the patient is requiring norepinephrine and therefore hemodialysis was There were transaminitis high likely all secondary to congestive hepatomegaly, and postdialysis improving Continue to monitor liver enzymes Intake and output monitoring Daily weight base analysis Follow-up cardiac recommendations 5. Flash pulmonary edema: Patient on intermittent hemodialysis and nephrology on board. Monitor intake and output cont to monitor vitals and pulse o2 6. Acute kidney injury: multifactorial considering contrast exposure, having pulm edema and therefore could be congestive kidneys? avoid fluids considering patient is having pulm edema Patient did not respond to Lasix Having flash pulmonary edema and resistant to medical therapy, nephrology on board consulted and required hemodialysis Follow nephrology plan 7. Heart failure with reduced ejection fraction: EF: 30-35%, having pulm edema rest plan as above 8. Lumbar radiculopathy: Adequate analgesia to be provided as per the pain scale 9. Nonrheumatic aortic valve stenosis: Stable, echo reported: Aortic valve is thickened and calcified. Doppler signal is inadequate to assess aortic stenosis. 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 Essential hypertension: Hold off any antihypertensive at the moment since the patient blood pressure on the lower side Plan: VTE: Heparin 5000 units twice daily Diet: Cardiac diet PPI for GI prophylaxis PDMP PDMP Reviewed: Not Reviewed Attestations 2 Medical Necessity Statement*: Patient will stay more than 2 midnights in the hospital for the management of BRANDYN/pulmonary edema, coronary artery disease s/p stent need for intermittent hemodialysis Time Spent in Patient Care: 16 - 35 minutes (>than 50% of time sp ent in counselling and/or direct pt care on unit) . Critical Care Time: The high probability of a clinically significant, sudden or life threatening deterioration, as referenced in this documentation, required my full and direct attention, intervention and personal management. The critical care time shown is in addition to time spent performing any reported separately billable procedures and includes the following: [x] Data and vital sign review and interpretation [x ] Patient assessment, examination and intervention [x] Medication orders and management [x] Patient/Family updates as able [x] Care Coordination and Documentation. Critical Care Time (min): 40 Other Attestations: Patient condition has been discussed at length with the patient/family, I have independently reviewed the chart labs imaging/diagnostics/EKG. the goals of care and code status with the patient/family/NOK/legal sales representative graphic art, and documented accordingly. The management has been done according to the current clinical condition with respect to patient goals of care and based on recommendations/guidelines. The patient/family has been informed about the current condition and further plan of care. Agreed with the plan of care and understood without any language barrier. Every effort was made to ensure accuracy of clinical data coordinator. Any obvious errors or omissions should be clarified with the author of the document. Coding Level of Care Code Critical Care >/= 30 minutes Diagnoses Severe sepsis A41.9; R65.20 Other elevated white blood cell (WBC) count D72.828 Leukocytosis type: other ST elevation (STEMI) myocardial infarction I21.3 Acute congestive heart failure I50.9 Flash pulmonary edema J81.0 Acute kidney injury N17.9 Heart failure with reduced ejection fraction I50.20 Lumbar radiculopathy M54.16 Nonrheumatic aortic valve stenosis I35.0 Cardiac valve disease etiology: nonrheumatic BPH with obstruction/lower urinary tract symptoms N40.1; N13.8 Essential hypertension I10 Hypertension type: essential hypertension
[2025-09-19] MEDS: norepinephrine 4 MG/250 ML BAG 45 MG IV (02:50)
[2025-09-19] MEDS: pantoprazole 40 mg SDV IVP (04:36)
[2025-09-19 07:10] LABS: Alanine Aminotransferase 67 U/L (0-41); Albumin Level 3.8 g/dL (3.5-5.2); Alkaline Phosphatase 68 U/L (40-130); Aspartate Amino Transferase 114 U/L (0-40); Blood Urea Nitrogen 35 mg/dL (8-23); Calcium 8.7 mg/dL (8.5-10.5); Carbon Dioxide 20 mmol/L (22-29); Chloride 98 mmol/L (98-107); Globulin 2.7 g/dL (1.3-4.6); Glucose 205 mg/dL (65-115); Osmolality Calculated 294 mOsm/kg (285-295); Sodium 135 mmol/L (136-145); Total Protein 6.5 g/dL (6.6-8.7)
[2025-09-19 07:13] LABS: Anion Gap 21.6 (5-19); Potassium 4.6 mmol/L (3.5-5.1)
--- NOTE | 2025-09-19 07:24 | PC.NURSE ---
Upon shift change, peripheral IV to right upper arm was found to be infiltrated. Levophed had infiltrated. Nurse changed Levophed to functional IV site. APplied warm compress, and elevated extremity. Nurse attempted to alert Dr prabhakar, but was unable to reach him. Nurse alerted Dr Desai and received orders for turbutaline and nitro ointment per recommendation of pharmacist since first line drug is not available.
[2025-09-19] MEDS: nitroglycerin 1 gm/inch oint Pkt TOPICAL (08:14)
[2025-09-19 09:26] LABS: Hematocrit 34.4 % (37-53); Hemoglobin 10.90 g/dL (11.27-16.99); Mean Corpuscular HGB Conc 31.7 g/dL (30-55); Mean Corpuscular Hemoglobin 32.0 pg (27-33); Mean Corpuscular Volume 100.9 fl (82-101); Nucleated Red Blood Cells % 0 %; Platelet Count 205 10^3/cmm (157-399); Red Blood Count 3.41 10^6/uL (3.85-5.65); White Blood Count 15.92 10^3/uL (3.29-11.43)
[2025-09-19] MEDS: ondansetron 2 mg/ML SDV 2 mL 8 MG IVP ×2 (10:01→16:30)
[2025-09-19] MEDS: alum-mag-hydroxide-sime 30 mL UDC PO (10:02)
[2025-09-19] MEDS: heparin 5,000 unit/mL INJ 1 mL 5000 UNIT SUBCUT ×2 (10:02→23:26)
[2025-09-19] MEDS: norepinephrine 4 MG/250 ML BAG 22.5 MG IV (10:11)
--- NOTE | 2025-09-19 10:48 | P.PN_ITS ---
<Statement entered by Richar Dobbins M.D - 09/26/25 17:38> Patient was cared for in conjunction with an advanced practice practitioner.? I reviewed the chart and all pertinent data including imaging, telemetry, and laboratory results.? I discussed the patient in detail with the advanced practice practitioner.? Please see? their documentation for progress note, testing results and agreed upon plan of care for the patient. Subjective 2 Subjective: Patient looking better today. He is sitting up in his chair. Had dialysis yesterday. Creatinine has went up to 1.1. Still requiring Levophed at 6. Vitals/I&O/Wt Last Vital Signs Temp 98.3 F 09/19/25 07:30 Pulse 112 H 09/19/25 09:30 Resp 22 H 09/19/25 09:30 BP 117/70 09/19/25 09:30 Pulse Ox 97 09/19/25 09:30 O2 Del Method Nasal Cannula 09/19/25 07:51 O2 Flow Rate 5 09/19/25 07:51 FiO2 50 09/17/25 22:00 09/18/25 09/19/25 09/19/25 22:59 06:59 14:59 Intake Total 1108.5 / 1901.650 645.500 / 2547.150 81.625 / 81.625 Output Total 3210 / 3210 Balance -2101.5 / -1308.350 645.500 / -662.850 81.625 / 81.625 Weight last 48 hrs Weight 192 lb 12.8 oz Weight 199 lb 15.348 oz Weight 198 lb 1.6 oz Weight 204 lb 5.896 oz Physical Exam 2 Narrative: General: No apparent distress HENMT: normoceophalic Muskuloskeletal: Full ROM Respiratory: Normal respiratory effort, clear on the left but right lower anterior lobe diminished, no use of accessory muscles Cardio: No JVD, regular rate, regular rhythm, S1 S2 normal, no murmurs, peripheral pulses 2+ radial palpated bilaterally GI: Normal to inspection, nondistended Extremities: Full ROM, normal, normal capillary refill, no cyanosis or edema Neuro: Alert and oriented x4 Psych: Affect normal, denies suicidal ideation, mental status grossly normal Skin: Right groin slight bruising w/o evidence of hematoma, soft Urinary Catheter Management: Wu: Cath Placed During This Visit: no Reason for Continuing Indwelling Catheter: Accurate Measurement of Urinary Output in Critically Ill Patients Data 09/19/25 06:42 09/19/25 06:42 Micro: Microbiology 09/17/25 13:31 Blood Culture - Preliminary Blood NEGATIVE TO DATE 09/17/25 13:30 Blood Culture - Preliminary Blood NEGATIVE TO DATE 09/17/25 11:27 Urine Culture - Preliminary Urine Catheterized A&P Assessment and plan 1. ST elevation (STEMI) myocardial infarction: 2. Coronary artery disease: 3. Hypertension: 4. Aortic stenosis: 5. Heart failure with reduced ejection fraction: 6. Acute kidney injury: Plan: S/P PCI to the vein grafts to LAD and diag. Continue asa and plavix. Dialysis per nephrology recommendations. Appears euvolemic on exam. We appreciate nephrology and the hospitalists assistance. We will repeat limited echo with contrast once heart rates improve. PDMP PDMP Reviewed: Not Reviewed Attestations 2 Medical Necessity Statement*: Stay expected to cross 2 midnignts due to STEMI and BRANDYN requiring dialysis. Coding Level of Care Code Acute Code for [facility] Fwd Diagnoses ST elevation (STEMI) myocardial infarction I21.3 Coronary artery disease I25.10 Hypertension I10 Aortic stenosis I35.0 Heart failure with reduced ejection fraction I50.20 Acute kidney injury N17.9
[2025-09-19 14:28] LABS: Anion Gap 22.6 (5-19); Blood Urea Nitrogen 41 mg/dL (8-23); Calcium 8.4 mg/dL (8.5-10.5); Carbon Dioxide 20 mmol/L (22-29); Chloride 97 mmol/L (98-107); Glucose 234 mg/dL (65-115); Lactate (Lactic Acid level) 2.8 mmol/L (0.5-2.2); Osmolality Calculated 298 mOsm/kg (285-295); Potassium 4.6 mmol/L (3.5-5.1); Sodium 135 mmol/L (136-145)
[2025-09-19 15:44] LABS: Respiratory Syncytial Virus Ce NEGATIVE (Negative); SARS-CoV-2 PCR NEGATIVE (Negative)
[2025-09-19] MEDS: cefTRIAXone 1,000 mg SDV 1000 MG IVP (16:22)
--- NOTE | 2025-09-19 16:39 | PM.PN ---
Subjective Subjective: Patient was seen in the morning, he was lying on the bed on nasal cannula and was able to speak in full sentences. His respiratory distress is much better today, underwent hemodialysis session yesterday. Patient still having nausea and decreased appetite but no active chest pain or diaphoresis Currently renal parameters are worsening however nephrology on board and follow the recommendations Currently on nor epi 6 and to wean accordingly Medications: Reviewed: Yes Vitals/I&O/Wt Last Vital Signs Temp 97.7 F 09/19/25 12:45 Pulse 104 H 09/19/25 14:00 Resp 16 09/19/25 13:39 BP 101/63 09/19/25 13:15 Pulse Ox 94 09/19/25 13:39 O2 Del Method Nasal Cannula 09/19/25 13:39 O2 Flow Rate 5 09/19/25 13:39 FiO2 50 09/17/25 22:00 09/19/25 09/19/25 09/19/25 06:59 14:59 22:59 Intake Total 645.500 / 2547.150 281.625 / 281.625 Output Total 0 / 0 Balance 645.500 / -662.850 281.625 / 281.625 Weight last 48 hrs Weight 87.453 kg Weight 90.7 kg Weight 89.857 kg Weight 92.7 kg Physical Exam Narrative: General: Alert and oriented, lying on the bed, without any discomfort, on nasal cannula supplementation and able to complete full sentences HEENT: Normocephalic, atraumatic, grossly unremarkable exam Cardio: normal rate rhythm, normal S1-S2 without any murmurs, normal JVD, hemodialysis catheter seen on the right side of the neck Respiratory: Equal air entry, no wheezes heard, no crackles appreciated, GI: Abdomen soft, nontender, mild distended likely from bipap, normoactive bowel sounds present all 4 quadrants, Neuro: intact cranial nerves motor and sensory and cerebellar/coordination function without any focal neurological deficit Behavior: Appropriate and cooperative Extremities: Adequate palpable pulses, mild bilateral trace pedal edema Urinary Catheter Management: Wu: Cath Placed During This Visit: no Reason for Continuing Indwelling Catheter: Accurate Measurement of Urinary Output in Critically Ill Patients Data 09/19/25 06:42 09/19/25 13:50 Micro: Microbiology 09/17/25 11:27 Urine Culture - Final Urine Catheterized 09/17/25 13:31 Blood Culture - Preliminary Blood NEGATIVE TO DATE 09/17/25 13:30 Blood Culture - Preliminary Blood NEGATIVE TO DATE A&P Assessment and plan 1. Severe sepsis: Patient meets the criteria for severe sepsis Avoid aggressive fluid due to flash pulmonary edema Blood cultures and urine cultures prelim negative and follow the final report Continue ceftriaxone and azithromycin since the patient chest x-ray showed some infiltrate on the on the right side Lactate series Monitor intake and output Maintain MAP above 65 Patient requiring norepinephrine at the moment, mild decreased capillary refill Continue telemetry Oxygen therapy as per protocol to maintain oxygen sats above 92% 2. Other elevated white blood cell (WBC) count: worsening WBCS, could be stress vs infection? possible atypical pneumonia? blood cultures and urine cultures preliminary negative, chest x-ray reviewed And showed bibasilar atelectasis with some infiltrates on the right Resp viral panel and covid/flu swab to follow ceftriaxone to continue for 5 to 7 days and azithromycin for 3 days and to discontinue incentive spirometry chest physiotherapy scheduled Nebs ( pt use to be smoker but never been diagnosed with COPD?) monitor hemodynamics and cont pulse Ox 3. 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 -Patient requiring intermittent norepinephrine since he is also requiring hemodialysis for his pulmonary edema, currently improvement is there however it is taking some time. - Telemetry monitoring - echo reported: 30-35% EF 4. Acute congestive heart failure: proBNP around 50,000's Patient having signs and symptoms of acute congestive heart failure since he has reduced ejection fraction Cannot continue with Lasix since the patient is requiring norepinephrine and therefore hemodialysis was There were transaminitis high likely all secondary to congestive hepatomegaly, and postdialysis improving Continue to monitor liver enzymes Intake and output monitoring Daily weight base analysis Follow-up cardiac recommendations 5. Flash pulmonary edema: Patient on intermittent hemodialysis and nephrology on board. Monitor intake and output cont to monitor vitals and pulse o2 6. Acute kidney injury: multifactorial considering contrast exposure, having pulm edema and therefore could be congestive kidneys? avoid fluids considering patient is having pulm edema Patient did not respond to Lasix Having flash pulmonary edema and resistant to medical therapy, nephrology on board consulted and required hemodialysis Follow nephrology plan 7. Heart failure with reduced ejection fraction: EF: 30-35%, having pulm edema rest plan as above 8. Lumbar radiculopathy: Adequate analgesia to be provided as per the pain scale 9. Nonrheumatic aortic valve stenosis: Stable, echo reported: Aortic valve is thickened and calcified. Doppler signal is inadequate to assess aortic stenosis. 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 Essential hypertension: Hold off any antihypertensive at the moment since the patient blood pressure on the lower side Plan: VTE: Heparin 5000 units twice daily Diet: Cardiac diet PPI for GI prophylaxis PDMP PDMP Reviewed: Not Reviewed Attestations Medical Necessity Statement*: Patient will stay more than 2 midnights in the hospital for the management of BRANDYN/pulmonary edema, coronary artery disease s/p stent need for intermittent hemodialysis Time Spent in Patient Care: Greater than 35 minutes (>than 50% of time spent in counselling and/or direct pt care on unit). Critical Care Time: The high probability of a clinically significant, sudden or life threatening deterioration, as referenced in this documentation, required my full and direct attention, intervention and personal management. The critical care time shown is in addition to time spent performing any reported separately billable procedures and includes the following: [x] Data and vital sign review and interpretation [x] Patient assessment, examination and intervention [x] Medication orders and management [x] Patient/Family updates as able [x] Care Coordination and Documentation. Critical Care Time (min): 40 Other Attestations: Patient condition has been discussed at length with the patient/family, I have independently reviewed the chart labs imaging/diagnostics/EKG. the goals of care and code status with the patient/family/NOK/legal welding equipment sales representative, and documented accordingly. The management has been done according to the current clinical condition with respect to patient goals of care and based on recommendations/guidelines. The patient/family has been informed about the current condition and further plan of care. Agreed with the plan of care and understood without any language barrier. Every effort was made to ensure accuracy of an/sqq 89(v)15 sonar system journeyman. Any obvious errors or omissions should be clarified with the author of the document. Coding Level of Care Code Critical Care >/= 30 minutes Diagnoses Severe sepsis A41.9; R65.20 Other elevated white blood cell (WBC) count D72.828 Leukocytosis type: other ST elevation (STEMI) myocardial infarction I21.3 Acute congestive heart failure I50.9 Flash pulmonary edema J81.0 Acute kidney injury N17.9 Heart failure with reduced ejection fraction I50.20 Lumbar radiculopathy M54.16 Nonrheumatic aortic valve stenosis I35.0 Cardiac valve disease etiology: nonrheumatic BPH with obstruction/lower urinary tract symptoms N40.1; N13.8 Essential hypertension I10 Hypertension type: essential hypertension
[2025-09-19 16:53] LABS: Coronavirus 229E,HKU1,NL63,OC4 Not Detected (NOT DETECT); Parainfluenza Virus Type 1 Not Detected (NOT DETECT); Parainfluenza Virus Type 2 Not Detected (NOT DETECT); Parainfluenza Virus Type 3 Not Detected (NOT DETECT); Parainfluenza Virus Type 4 Not Detected (NOT DETECT); SARS-COV-2 Not Detected (NOT DETECT)
--- NOTE | 2025-09-19 17:19 | PM.PN ---
Subjective Subjective: no new c/o Medications: Reviewed: Yes Vitals/I&O/Wt Last Vital Signs Temp 97.7 F 09/19/25 12:45 Pulse 104 H 09/19/25 14:00 Resp 16 09/19/25 13:39 BP 101/63 09/19/25 13:15 Pulse Ox 94 09/19/25 13:39 O2 Del Method Nasal Cannula 09/19/25 13:39 O2 Flow Rate 5 09/19/25 13:39 FiO2 50 09/17/25 22:00 09/19/25 09/19/25 09/19/25 06:59 14:59 22:59 Intake Total 645.500 / 2547.150 281.625 / 281.625 Output Total 0 / 0 Balance 645.500 / -662.850 281.625 / 281.625 Weight last 48 hrs Weight 87.453 kg Weight 90.7 kg Weight 89.857 kg Weight 92.7 kg Physical Exam Narrative: awake , alert , no distress peerla S1S2 RRR Lungs with riky crackles abd - soft , non tender Ext- 2+ edema Skin No rash Urinary Catheter Management: Wu: Cath Placed During This Visit: no Reason for Continuing Indwelling Catheter: Accurate Measurement of Urinary Output in Critically Ill Patients Data 09/19/25 06:42 09/19/25 13:50 Micro: Microbiology 09/17/25 11:27 Urine Culture - Final Urine Catheterized 09/17/25 13:31 Blood Culture - Preliminary Blood NEGATIVE TO DATE 09/17/25 13:30 Blood Culture - Preliminary Blood NEGATIVE TO DATE A&P Assessment and plan 1. Acute kidney injury: Plan: 1. Acute kidney injury: Multifactorial--cardiorenal , IV contrast exposure - HD started via temporary HD catheter , due to worsening BRANDYN and Oliguria - s/p HD x 2 sessions , holding off HD today, eval for HD in Am , Cr trending up , and remains oliguric 2. Acute respiratory failure , decreased O2 requirement to 5L 3. ST elevation [place], status post left heart cath and 5 stents placed 4. CHF ejection fraction 30 to 35% Patient evaluated using audiovisual cart. Time spent 40 minutes. PDMP PDMP Reviewed: Not Reviewed Attestations Medical Necessity Statement*: per [facility] Coding Level of Care Code Acute Code for [facility] Fwd Diagnoses Acute kidney injury N17.9
[2025-09-19] MEDS: morphine 4 mg/mL SDV 1 mL 2 MG IVP (17:43)
[2025-09-19] MEDS: calcium gluconate 0.9% NaCL 1 GM/50 ML PREMIX IV (17:43)
[2025-09-19] MEDS: norepinephrine 4 MG/250 ML BAG 37.5 MG IV (18:48)
--- NOTE | 2025-09-19 19:10 | PC.NURSE ---
SHift SUmmary: Up to a chair for most of the day. Poor appetite, limited fluid intake. Infiltration of vesicant medication to the right upper arm today. Warmth, elevation, and antidote administered. At time of this note, there is some swelling, which looks like it could also be related to fluid imbalance. Otherwise upper arm looks unremarkable. No signs of extravasation present at this time. Pressors: remains of 8mcg of levophed. Urine output: 60mL of dark brown concentrated urine.
[2025-09-20] VITALS (96 sets, daily range): BP systolic 65–129; BP diastolic 31–78; PULSE 87–107; RESP 8–34; TEMP 36.3–36.7; O2SAT 81–94; BMI 28.3
[2025-09-20] MEDS: ondansetron 2 mg/ML SDV 2 mL 8 MG IVP ×3 (00:49→19:06)
[2025-09-20] MEDS: morphine 4 mg/mL SDV 1 mL 2 MG IVP (02:56)
[2025-09-20] MEDS: norepinephrine 4 MG/250 ML BAG 22.5 MG IV ×2 (03:41→14:51)
--- NOTE | 2025-09-20 04:27 | PC.NURSE ---
Patient continuing to refuse Maalox, despite nursing education and prompting.
[2025-09-20] MEDS: pantoprazole 40 mg SDV IVP (04:33)
[2025-09-20 06:03] LABS: Hematocrit 30.3 % (37-53); Hemoglobin 10.10 g/dL (11.27-16.99); Mean Corpuscular HGB Conc 33.3 g/dL (30-55); Mean Corpuscular Hemoglobin 32.6 pg (27-33); Mean Corpuscular Volume 97.7 fl (82-101); Nucleated Red Blood Cells % 0.2 %; Platelet Count 186 10^3/cmm (157-399); Red Blood Count 3.10 10^6/uL (3.85-5.65); White Blood Count 13.07 10^3/uL (3.29-11.43)
[2025-09-20 06:23] LABS: Alanine Aminotransferase 52 U/L (0-41); Albumin Level 3.8 g/dL (3.5-5.2); Alkaline Phosphatase 68 U/L (40-130); Anion Gap 20.0 (5-19); Aspartate Amino Transferase 59 U/L (0-40); Blood Urea Nitrogen 54 mg/dL (8-23); Calcium 8.6 mg/dL (8.5-10.5); Carbon Dioxide 22 mmol/L (22-29); Chloride 94 mmol/L (98-107); Globulin 2.4 g/dL (1.3-4.6); Glucose 207 mg/dL (65-115); Magnesium 2.1 mg/dL (1.7-2.3); Osmolality Calculated 293 mOsm/kg (285-295); Potassium 5.0 mmol/L (3.5-5.1); Sodium 131 mmol/L (136-145); Total Protein 6.2 g/dL (6.6-8.7)
--- NOTE | 2025-09-20 09:27 | PC.SOCIAL ---
IMM Update pg 2 of IMM Updated and reviewed w/ patient. Copy provided and copy dated, initialed and placed in chart.
--- NOTE | 2025-09-20 09:37 | USCV_ITS ---
Anish Colon Age: 85 Gender: M : 1940 Exam Date: 09/20/2025 14:51 Ordering Phys: Kerry Tan NP Technologist: [place] [facility] [place]: [place]UR BP: 81 / 56 HR: 87 Rhythm: Sinus Technical Quality: Adequate MEASUREMENTS (Male / Female) Normal Values 2D ECHO LV Diastolic Diameter PLAX 5.6 cm 4.2 - 5.9 / 3.9 - 5.3 cm IVS Diastolic Thickness 1.4 cm 0.6 - 1.0 / 0.6 - 0.9 cm IVS Systolic Thickness 1.9 cm LVPW Diastolic Thickness 1.5 cm 0.6 - 1.0 / 0.6 - 0.9 cm LVPW Systolic Thickness 1.8 cm LVOT Diameter 2.0 cm LV Ejection Fraction 2D Teich 48.9 % LV Ejection Fraction MOD 4C 43.1 % LV Ejection Fraction MOD 2C 34.2 % LV Ejection Fraction 2C AL 34.8 % LA Diameter 5.3 cm RA Systolic Volume 4C AL 83.0 ml RA Systolic Volume 4C MOD 80.1 ml LA Sys Volume AL 111.2 cm cubed LA Sys Volume Index AL 53.5 cm cubed/m squared Aorta at Sinotubular Diameter 3.1 cm M-MODE LA Ao Ratio MM 1.6 AV Cusp Separation MM 1.0 cm DOPPLER AV Peak Velocity 167.0 cm/s LVOT Peak Velocity 87.0 cm/s AV Area Cont Eq vti 1.9 cm squared AV Area Cont Eq pk 1.7 cm squared MV Peak Velocity 99.0 cm/s MV Area PHT 4.3 cm squared Mitral E to A Ratio 2.7 TV Peak Velocity 273.0 cm/s TR Peak Velocity 286.0 cm/s TR Peak Gradient 32.7 mmHg TV Peak E Velocity 108.0 cm/s PV Peak Velocity 79.0 cm/s FINDINGS Left Ventricle Mildly increased left ventricular cavity size. There was severe diffuse hypokinesia of the apex, diffuse hypokinesis of the anterior wall and basal inferior wall segments. Overall LV ejection fraction around 34% Right Ventricle Normal right ventricular size and systolic function. Right Atrium Mildly increased right atrial size. Left Atrium Severely increased left atrial volume 53.5 ml/m squared. IA Septum Normal appearance of the interatrial septum. Mitral Valve Severe mitral valve regurgitation. Aortic Valve Thickened aortic valve. Tricuspid Valve Mild to moderate tricuspid valve regurgitation. Estimated pulmonary artery peak systolic pressure 35 mmHg Pulmonic Valve Structurally normal pulmonic valve. Pericardium No pericardial effusion. Aorta Normal aortic annulus size. IVC Inferior vena cava not visualized. CONCLUSIONS Mildly increased left ventricular cavity size. Multiple wall motion abnormalities with a diminished ejection fraction of 34% Severely increased left atrial volume 53.5 ml/m squared. Severe mitral valve regurgitation. Mildly increased right atrial size. Thickened aortic valve. Mild to moderate tricuspid valve regurgitation. Estimated pulmonary artery peak systolic pressure 35 mmHg. There is no pericardial effusion. There are no intracardiac masses. Compared to the study from 09/16/2025, the mitral regurgitation appears to be severe Dr Damián Earl MD [facility] (Electronically Signed) Final Date: 20 September 2025 16:39 S
--- NOTE | 2025-09-20 09:37 | XR_ITS ---
WS: [id number] Exam: XR KUB portable [id number] Date/Time of Exam: 09/20/2025 10:02 AM Reason For Exam: abdominal distention No bowel obstruction or pneumoperitoneum. No obvious organ enlargement. Moderate amount of retained stool and gas in the colon. There appears to be some residual radiographic contrast in the urinary bladder. Bony structures are intact. Moderate degenerative change of the thoracic and lumbar spine. XR/XR KUB portable [id number] IMPRESSION: 1. No acute abdominal process. 2. A moderate amount of retained stool and gas in the colon.
--- NOTE | 2025-09-20 10:51 | XR_ITS ---
WS: [id number] Exam: XR chest 1V portable [id number] Date/Time of Exam: 09/20/2025 11:30 AM Reason For Exam: PICC placement Comparison 09/17/2025. A left-sided PICC line has been placed and ends in the lower one third of the SVC in good position. There has been almost complete clearing of pulmonary infiltrates since the prior study. There is an indwelling RIGHT IJ double-lumen dialysis catheter extending into the lower one third of the SVC. No pleural effusion or pneumothorax. Cardiac enlargement unchanged. XR/XR chest 1V portable [id number] IMPRESSION: 1. New left-sided PICC line ending in the lower one third of the SVC. 2. Significantly improved pulmonary infiltrates since the previous study. Cardi ac enlargement unchanged.
[2025-09-20] MEDS: heparin 5,000 unit/mL INJ 1 mL 5000 UNIT SUBCUT ×2 (11:44→21:13)
[2025-09-20] MEDS: polyethylene glycol 3350 Pkt 17 gm PO (11:45)
--- NOTE | 2025-09-20 12:01 | PC.SOCIAL ---
IMM Update pg 2 of IMM Updated and reviewed w/ patient. Copy provided and copy dated, initialed and placed in chart.
--- NOTE | 2025-09-20 12:06 | PICC.NOTE ---
PICC Placement: Risks and benefits discussed with patient, obtained informed consent from patient, no further questions prior to procedure. Using sterile technique, this nurse placed 6F BioFlo Triple-Lumen PICC line in L basilic vein. PICC line order placed d/t pt receiving Levophed. L basilic vein measured 6.3mm. Catheter 45cm in total length, 0cm external. Arm circumference measured 10cm from L A/C @30cm. R arm contraindicated d/t infiltration from Levophed and Dialysis port on R side. Chest X-Ray confirmation noted catheter tip terminates in lower 1/3 of the SVC. No complications noted during procedure. Observed by Mari Soto RN. EBL <10mL. Report given to Michael Mukherjee RN.
--- NOTE | 2025-09-20 13:49 | P.PN_ITS ---
Subjective 2 Subjective: on 1 L afebrile Vitals/I&O/Wt Last Vital Signs Temp 97.3 F L 09/20/25 13:15 Pulse 93 09/20/25 13:15 Resp 21 H 09/20/25 13:15 BP 95/64 09/20/25 13:15 Pulse Ox 94 09/20/25 13:15 O2 Del Method Nasal Cannula 09/20/25 13:15 O2 Flow Rate 1 09/20/25 13:15 FiO2 50 09/17/25 22:00 09/19/25 09/20/25 09/20/25 22:59 06:59 14:59 Intake Total 439 / 806.500 625 / 1431.500 300 / 300 Output Total 60 / 60 Balance 379 / 746.500 625 / 1371.500 300 / 300 Weight last 48 hrs Weight 87.144 kg Weight 87.453 kg Weight 90.7 kg Physical Exam 2 Const: COMMON NORMALS: no acute distress and patient oriented x3 Resp: COMMON NORMALS: normal respiratory effort EFFORT & INSPECTION: Yes able to speak in complete sentences Cardio: COMMON NORMALS: regular rate and regular rhythm RATE: regular rate RHYTHM: regular rhythm GI: COMMON NORMALS: Normal to inspection, nondistended, normoactive bowel sounds present Neuro: COMMON NORMALS: patient oriented x3 Urinary Catheter Management: Wu: Cath Placed During This Visit: no Reason for Continuing Indwelling Catheter: Acute Urinary Retention or Obstruction Data 09/20/25 05:44 09/20/25 05:44 Micro: Microbiology 09/17/25 11:27 Urine Culture - Final Urine Catheterized A&P Assessment and plan 1. Acute congestive heart failure: Plan: 1. Severe sepsis: Patient meets the criteria for severe sepsis Avoid aggressive fluid due to flash pulmonary edema Blood cultures and urine cultures cx negative to date Continue ceftriaxone and azithromycin levophed prn Oxygen therapy as per protocol to maintain oxygen sats above 92% 2. 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 - Telemetry monitoring - echo reported: 30-35% EF 3. Acute congestive heart failure: proBNP around 50,000's Patient having signs and symptoms of acute congestive heart failure since he has reduced ejection fraction Cannot continue with Lasix since the patient is requiring norepinephrine and therefore hemodialysis was There were transaminitis high likely all secondary to congestive hepatomegaly, and postdialysis improving Continue to monitor liver enzymes Intake and output monitoring Daily weight base analysis Follow-up cardiac recommendations 4. Flash pulmonary edema: Patient on intermittent hemodialysis and nephrology on board. Monitor intake and output cont to monitor vitals and pulse o2 5. Acute kidney injury: worsening multifactorial considering contrast exposure, having pulm edema and therefore could be congestive kidneys? avoid fluids considering patient is having pulm edema Patient did not respond to Lasix Having flash pulmonary edema and resistant to medical therapy, nephrology on board consulted and required hemodialysis Follow nephrology plan 6. Nonrheumatic aortic valve stenosis: Stable, echo reported: Aortic valve is thickened and calcified. Doppler signal is inadequate to assess aortic stenosis. 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 Essential hypertension: Hold off any antihypertensive at the moment since the patient blood pressure on the lower side Plan: VTE: Heparin 5000 units twice daily Diet: Cardiac diet PPI for GI prophylaxis PDMP PDMP Reviewed: Not Reviewed Attestations 2 Medical Necessity Statement*: monitor labs, cardiac status Coding Level of Care Code 34242 Diagnoses Acute congestive heart failure I50.9
--- NOTE | 2025-09-20 14:45 | PM.PN ---
Subjective Subjective: no new c/o Medications: Reviewed: Yes Vitals/I&O/Wt Last Vital Signs Temp 97.3 F L 09/20/25 13:15 Pulse 93 09/20/25 13:15 Resp 21 H 09/20/25 13:15 BP 95/64 09/20/25 13:15 Pulse Ox 94 09/20/25 13:15 O2 Del Method Nasal Cannula 09/20/25 13:15 O2 Flow Rate 1 09/20/25 13:15 FiO2 50 09/17/25 22:00 09/19/25 09/20/25 09/20/25 22:59 06:59 14:59 Intake Total 439 / 806.500 625 / 1431.500 300 / 300 Output Total 60 / 60 Balance 379 / 746.500 625 / 1371.500 300 / 300 Weight last 48 hrs Weight 87.144 kg Weight 87.453 kg Weight 90.7 kg Physical Exam Narrative: awake , alert , no distress peerla S1S2 RRR Lungs with riky crackles abd - soft , non tender Ext- 2+ edema Skin No rash Urinary Catheter Management: Wu: Cath Placed During This Visit: no Reason for Continuing Indwelling Catheter: Acute Urinary Retention or Obstruction Data 09/20/25 05:44 09/20/25 05:44 Micro: Microbiology 09/17/25 11:27 Urine Culture - Final Urine Catheterized A&P Assessment and plan 1. Acute kidney injury: Plan: 1. Acute kidney injury: Multifactorial--cardiorenal , IV contrast exposure - HD started via temporary HD catheter , due to worsening BRANDYN and Oliguria - no renal recovery , will plan for Tunnelled catheter placement once more stable ,plan for hd in AM 2. Acute respiratory failure , decreased O2 requirement to 1-[address] elevation [place], status post left heart cath and 5 stents placed 4. CHF ejection fraction 30 to 35% Patient evaluated using audiovisual cart. Time spent 40 minutes. PDMP PDMP Reviewed: Not Reviewed Attestations Medical Necessity Statement*: [facility] Coding Level of Care Code Acute Code for Chg Fwd Diagnoses Acute kidney injury N17.9
--- NOTE | 2025-09-20 14:50 | P.PN_ITS ---
Subjective 2 Subjective: no new c/o Medications: Reviewed: Yes Vitals/I&O/Wt Last Vital Signs Temp 97.3 F L 09/20/25 13:15 Pulse 93 09/20/25 13:15 Resp 21 H 09/20/25 13:15 BP 95/64 09/20/25 13:15 Pulse Ox 94 09/20/25 13:15 O2 Del Method Nasal Cannula 09/20/25 13:15 O2 Flow Rate 1 09/20/25 13:15 FiO2 50 09/17/25 22:00 09/19/25 09/20/25 09/20/25 22:59 06:59 14:59 Intake Total 439 / 806.500 625 / 1431.500 300 / 300 Output Total 60 / 60 Balance 379 / 746.500 625 / 1371.500 300 / 300 Weight last 48 hrs Weight 87.144 kg Weight 87.453 kg Weight 90.7 kg Physical Exam 2 Narrative: awake , alert , no distress peerla S1S2 RRR Lungs with riky crackles abd - soft , non tender Ext- 2+ edema Skin No rash Urinary Catheter Management: Wu: Cath Placed During This Visit: no Reason for Continuing Indwelling Catheter: Acute Urinary Retention or Obstruction Data 09/20/25 05:44 09/20/25 05:44 Micro: Microbiology 09/17/25 11:27 Urine Culture - Final Urine Catheterized A&P Assessment and plan 1. Acute kidney injury: Plan: 1. Acute kidney injury: Multifactorial--cardiorenal , IV contrast exposure - HD started via temporary HD catheter , due to worsening BRANDYN and Oliguria - no renal recovery , will plan for Tunnelled catheter placement once more stable ,plan for hd in AM 2. Acute respiratory failure , decreased O2 requirement to 1-[address] elevation [place], status post left heart cath and 5 stents placed 4. CHF ejection fraction 30 to 35% Patient evaluated using audiovisual cart. Time spent 40 minutes. PDMP PDMP Reviewed: Not Reviewed Attestations 2 Medical Necessity Statement*: per [facility] Coding Level of Care Code Acute Code for Chg Fwd Diagnoses Acute kidney injury N17.9
--- NOTE | 2025-09-20 15:29 | P.PN_ITS ---
<Statement entered by Richar Dobbins M.D - 09/26/25 17:37> Patient was cared for in conjunction with an advanced practice practitioner.? I reviewed the chart and all pertinent data including imaging, telemetry, and laboratory results.? I discussed the patient in detail with the advanced practice practitioner.? Please see? their documentation for progress note, testing results and agreed upon plan of care for the patient. Subjective 2 Subjective: Patient setting up in bed today. Creat went up to 5.8. Still requiring levophed @6. No dialysis yesterday. Vitals are stable. He denies chest pain or shortness of breath. HR has improved. Vitals/I&O/Wt Last Vital Signs Temp 97.3 F L 09/20/25 13:15 Pulse 93 09/20/25 13:15 Resp 21 H 09/20/25 13:15 BP 95/64 09/20/25 13:15 Pulse Ox 94 09/20/25 13:15 O2 Del Method Nasal Cannula 09/20/25 13:15 O2 Flow Rate 1 09/20/25 13:15 FiO2 50 09/17/25 22:00 09/20/25 09/20/25 09/20/25 06:59 14:59 22:59 Intake Total 625 / 1431.500 550 / 550 Balance 625 / 1371.500 550 / 550 Weight last 48 hrs Weight 192 lb 1.92 oz Weight 192 lb 12.8 oz Weight 199 lb 15.348 oz Physical Exam 2 Narrative: General: No apparent distress HENMT: normoceophalic Muskuloskeletal: Full ROM Respiratory: Normal respiratory effort, clear on the left but right lower anterior lobe diminished, no use of accessory muscles Cardio: No JVD, regular rate, regular rhythm, S1 S2 normal, no murmurs, peripheral pulses 2+ radial palpated bilaterally GI: Normal to inspection, nondistended Extremities: Full ROM, normal, normal capillary refill, no cyanosis or edema Neuro: Alert and oriented x4 Psych: Affect normal, denies suicidal ideation, mental status grossly normal Skin: Right groin slight bruising w/o evidence of hematoma, soft Urinary Catheter Management: Wu: Cath Placed During This Visit: no Reason for Continuing Indwelling Catheter: Acute Urinary Retention or Obstruction Data 09/20/25 05:44 09/20/25 05:44 Micro: Microbiology 09/17/25 11:27 Urine Culture - Final Urine Catheterized A&P Assessment and plan 1. ST elevation (STEMI) myocardial infarction: 2. Coronary artery disease: 3. Hypertension: 4. Aortic stenosis: 5. Heart failure with reduced ejection fraction: 6. Acute kidney injury: Plan: S/P PCI to the vein grafts to LAD and diag. Continue asa and plavix. Dialysis per nephrology recommendations. Appears euvolemic on exam. We appreciate nephrology and the hospitalists assistance. HR has improved, will get echo today. Further recommendations to follow. Continue to titrate levophed to maintain MAP of 65 and wean as tolerated. PDMP PDMP Reviewed: Not Reviewed Attestations 2 Medical Necessity Statement*: Stay expected to cross 2 midnignts due to STEMI and BRANDYN requiring dialysis. Coding Level of Care Code Acute Code for [facility] Diagnoses ST elevation (STEMI) myocardial infarction I21.3 Coronary artery disease I25.10 Hypertension I10 Aortic stenosis I35.0 Heart failure with reduced ejection fraction I50.20 Acute kidney injury N17.9
[2025-09-20] MEDS: cefTRIAXone 1,000 mg SDV 1000 MG IVP (15:30)
--- NOTE | 2025-09-20 19:17 | PC.NURSE ---
SHift SUmmary: Uneventful shift. Up to a chair for most of the day. Xray shows constipation, started on bowel regimen. Has tolerated fluids better since starting bowel regimen, but still frequently has nausea and a poor appetite. Anuric today. Plan to receive dialysis in the morning. Remains on 6mcg levophed. Unchanged from this morning. POssible tunneled dialysis catheter placement tommorow pending Marvin consultation with surgery. NPO at midnight.
[2025-09-21] VITALS (103 sets, daily range): BP systolic 78–135; BP diastolic 42–84; PULSE 80–101; RESP 10–38; TEMP 36.2–36.7; O2SAT 84–100
[2025-09-21] MEDS: norepinephrine 4 MG/250 ML BAG 18.75 MG IV (01:17)
[2025-09-21] MEDS: ondansetron 2 mg/ML SDV 2 mL 8 MG IVP ×3 (03:15→18:01)
[2025-09-21] MEDS: alum-mag-hydroxide-sime 30 mL UDC PO (03:25)
[2025-09-21] MEDS: morphine 4 mg/mL SDV 1 mL 2 MG IVP ×2 (05:39→20:27)
--- NOTE | 2025-09-21 06:10 | CTR_ITS ---
PROCEDURE INFORMATION: Exam: CT Abdomen And Pelvis Without Contrast Exam date and time: 09/21/2025 6:34 AM Age: 85 years old Clinical indication: Abdominal pain TECHNIQUE: Imaging protocol: Computed tomography of the abdomen and pelvis without contrast. Radiation optimization: All CT scans at this facility use at least one of these dose optimization techniques: automated exposure control; mA and/or kV adjustment per patient size (includes targeted exams where dose is matched to clinical indication); or iterative reconstruction. COMPARISON: CR XR KUB portable [id number] 09/20/2025 11:06 AM RADIATION DOSE METRICS: Total DLP (mGy-cm): 875 FINDINGS: Lungs: Bibasilar atelectasis. Patchy ill-defined ground-glass opacities in bilateral lung bases, [id number]-ygzj-left. Pleural spaces: Small bilateral pleural effusions. Diaphragm: Small to moderate hiatal hernia. Liver: Normal. No mass. Gallbladder and biliary ducts: Status post cholecystectomy. No biliary ductal dilatation. Pancreas: Fatty atrophy of the pancreas. No ductal dilatation. Spleen: Normal. No splenomegaly. Adrenal glands: Normal. No mass. Kidneys and ureters: Normal. No hydronephrosis. Stomach and bowel: Unremarkable. No obstruction. No mucosal thickening. Appendix: No evidence of appendicitis. Intraperitoneal space: Unremarkable. No free air. No significant fluid collection. Vasculature: Moderate diffuse aortoiliac calcifications. The infrarenal abdominal aorta measures up to 2.6 cm in diameter. Lymph nodes: Unremarkable. No enlarged lymph nodes. Urinary bladder: Wu catheter within the urinary bladder. Circumferential bladder wall thickening. Excreted contrast within the bladder. Reproductive: Prostatomegaly. Bones/joints: Multilevel lumbar spondylosis. Slight grade 1 anterolisthesis at L5-S1. Diffuse osseous demineralization. L4 and L5 laminectomies. Soft tissues: Moderate bilateral fat containing inguinal hernias. Partially imaged ill-defined complex collection in the right groin measuring up to 2.5 x 4.[address] CT/CT abdomen pelvis wo con [id number] IMPRESSION: 1. Ill-defined complex collection in the right groin may represent a hematoma. Correlate for recent vascular access. 2. Diffuse bladder wall thickening is likely related to chronic outlet obstruction. Underlying cystitis not excluded. 3. Prostatomegaly. Correlate with PSA levels. 4. Small bilateral pleural effusions with adjacent atelectasis. 5. Ill-defined ground-glass opacities in the lung bases, pyfux-[id number]-qgmp-left, may represent atypical infection in the correct clinical setting. 6. 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 Follow-up imaging in 5 years is recommended.
--- NOTE | 2025-09-21 06:11 | W.PM.EVENTAC ---
Event Note Event Note: RN reported patient having severe abdominal pain. I visited the patient who tells me he has not had a bowel movement or passed gas in about 4 days. There have been reports of belching and nausea. He says the pain is over the midline of the abdomen and is constant in nature. Current bowel regimen has not been successful in producing a bowel movement. He reports having laproscopic surgery through the abdomen in the past with marily fundoplication On exam, he is not in acute distress. There are bowel sounds appreciated. The abdomen is not tender on palpation. KUB reviewed from yesterday which comments no bowel obstruction. Retained stool and gas. I suspect his complaints are related to constipation and his bowel regimen should be intensified. However, plans are for tunnelled dialysis catheter today. Will request CT abd/pelvis without contrast to ensure nothing more sinister but I predict it will report similarly to the KUB
--- NOTE | 2025-09-21 06:12 | PC.NURSE ---
Abdominal Pain Patient complaining of severe abdominal pain, stating I have to do something about this pain. I can't keep feeling this. Patient requesting pain medication; medication administered per DEC. Dr. Nichols notified of worsening pain; at bedside for examination. Order received to hold AM PO medications including plavix, aspirin, and amiodarone until after the procedure today. Physician to place order for CT.
--- NOTE | 2025-09-21 06:26 | PC.NURSE ---
Labs No morning labs ordered. Dr. Nichols notified; no new orders received.
--- NOTE | 2025-09-21 09:13 | P.MISC_ITS ---
Miscellaneous Note Note: Fashion Artist called me to request a tunneled dialysis line. Explained that I can place the line next week (Thursday), otherwise the organizational consultant surgeon can be contacted for TDC if needed earlier. Fashion Artist thought patient could wait until next week. Will touch base with hospitalist/clinical mental health counselor next week.
--- NOTE | 2025-09-21 09:13 | PM.MISC ---
Miscellaneous Note Note: Golf Cart Attendant called me to request a tunneled dialysis line. Explained that I can place the line next week (Thursday), otherwise the [place] construction supervisor surgeon can be contacted for TDC if needed earlier. Golf Cart Attendant thought patient could wait until next week. Will touch base with hospitalist/vice president network next week.
--- NOTE | 2025-09-21 09:35 | PC.NURSE ---
Dr Coker rounding: No dialysis catheter placement today d/t reliance on Levophed. Plans to place on Thursday. If line needed sooner, notify on-call doctor.
--- NOTE | 2025-09-21 09:45 | PC.NURSE ---
Dr Jaime rounding: Administer AM meds that night hospitalist held for procedure. Start Midodrine 10mg TID Stop Plavix. Do not administer AM dose. Try to wean Levophed if able.
--- NOTE | 2025-09-21 10:00 | PC.NURSE ---
Pt was upset this morning after Dr Coker canceled his dialysis catheter placement. Requested to speak with hospitalist to discuss transfer to another facility. Pt expressed concern that he was being put off and wanted to go to a facility where he could promptly have what he needed. Educated pt of Dr Coker's reasoning to postpone procedure, risks of doing procedure whilst on Levophed, and reassured pt was currently receiving all necessary treatment and that treatment was not being delayed. Pt indicated understanding and stated the reasons were not discussed with him this morning. Stated he felt better after discussion. Dr Jaime was at bedside during conversation and also answered pt's questions.
[2025-09-21 10:22] LABS: Alanine Aminotransferase 43 U/L (0-41); Albumin Level 3.9 g/dL (3.5-5.2); Alkaline Phosphatase 76 U/L (40-130); Anion Gap 19.6 (5-19); Aspartate Amino Transferase 34 U/L (0-40); Blood Urea Nitrogen 56 mg/dL (8-23); Calcium 8.5 mg/dL (8.5-10.5); Carbon Dioxide 23 mmol/L (22-29); Chloride 95 mmol/L (98-107); Globulin 2.8 g/dL (1.3-4.6); Glucose 136 mg/dL (65-115); Osmolality Calculated 294 mOsm/kg (285-295); Potassium 4.6 mmol/L (3.5-5.1); Sodium 133 mmol/L (136-145); Total Protein 6.7 g/dL (6.6-8.7)
--- NOTE | 2025-09-21 10:30 | P.PN_ITS ---
<Statement entered by Richar Dobbins M.D - 09/26/25 17:37> Patient was cared for in conjunction with an advanced practice practitioner.? I reviewed the chart and all pertinent data including imaging, telemetry, and laboratory results.? I discussed the patient in detail with the advanced practice practitioner.? Please see? their documentation for progress note, testing results and agreed upon plan of care for the patient. Subjective 2 Subjective: Patient is having dialysis this AM. Creatinine is up to 5.8. BP soft on levo at 6. Last night he was complainting of consitpation. Has positive bowel sounds. Abd. soft. Vitals/I&O/Wt Last Vital Signs Temp 98.1 F 09/21/25 05:30 Pulse 94 09/21/25 09:45 Resp 19 H 09/21/25 09:45 BP 85/54 09/21/25 09:45 Pulse Ox 95 09/21/25 09:45 O2 Del Method Nasal Cannula 09/21/25 07:27 O2 Flow Rate 3 09/21/25 07:27 FiO2 1 09/20/25 19:28 09/20/25 09/21/25 09/21/25 22:59 06:59 14:59 Intake Total 1380 / 1930 343.437 / 2273.437 240 / 240 Output Total 75 / 75 Balance 1380 / 1930 343.437 / 2273.437 165 / 165 Weight last 48 hrs Weight 203 lb 1.6 oz Weight 192 lb 1.92 oz Physical Exam 2 Narrative: General: No apparent distress HENMT: normoceophalic Muskuloskeletal: Full ROM Respiratory: Normal respiratory effort, clear on the left but right lower anterior lobe diminished, no use of accessory muscles Cardio: No JVD, regular rate, regular rhythm, S1 S2 normal, no murmurs, peripheral pulses 2+ radial palpated bilaterally GI: Normal to inspection, nondistended Extremities: Full ROM, normal, normal capillary refill, no cyanosis or edema Neuro: Alert and oriented x4 Psych: Affect normal, denies suicidal ideation, mental status grossly normal Skin: Right groin slight bruising w/o evidence of hematoma, soft Urinary Catheter Management: Wu: Cath Placed During This Visit: no Reason for Continuing Indwelling Catheter: Accurate Measurement of Urinary Output in Critically Ill Patients Data 09/20/25 05:44 09/21/25 09:58 A&P Assessment and plan 1. ST elevation (STEMI) myocardial infarction: 2. Coronary artery disease: 3. Hypertension: 4. Aortic stenosis: 5. Heart failure with reduced ejection fraction: 6. Acute kidney injury: 7. Mitral valve regurgitation: Plan: Patient is getting dialysis today with plans for tunnelled dialysis catheter this evening. We appreciate nephrology assistance. Currently requiring levo. Wean as tolerated. Echo showed EF 34% with severe mitral regurgitation. At this time fluid is being removed via dialysis. Continue amio BID for PVC/vtach. Continue asprin and plavix. Constipation per hospitalist team. We appreciate their assistance. PDMP PDMP Reviewed: Not Reviewed Attestations 2 Medical Necessity Statement*: Stay expected to cross 2 midnignts due to STEMI and BRANDYN requiring dialysis and pressors. Coding Level of Care Code Acute Code for [facility] Diagnoses ST elevation (STEMI) myocardial infarction I21.3 Coronary artery disease I25.10 Hypertension I10 Aortic stenosis I35.0 Heart failure with reduced ejection fraction I50.20 Acute kidney injury N17.9 Mitral valve regurgitation I34.0
[2025-09-21] MEDS: polyethylene glycol 3350 Pkt 17 gm PO (10:41)
[2025-09-21] MEDS: heparin 5,000 unit/mL INJ 1 mL 5000 UNIT SUBCUT ×2 (10:43→22:42)
[2025-09-21] MEDS: pantoprazole 40 mg SDV IVP (10:51)
[2025-09-21] MEDS: norepinephrine 4 MG/250 ML BAG 26.25 MG IV (12:14)
--- NOTE | 2025-09-21 14:38 | P.PN_ITS ---
Subjective 2 Subjective: had dialysis today still on levophed wants to know discharge date Vitals/I&O/Wt Last Vital Signs Temp 98.1 F 09/21/25 05:30 Pulse 86 09/21/25 12:15 Resp 17 09/21/25 12:15 BP 112/73 09/21/25 12:15 Pulse Ox 92 09/21/25 12:15 O2 Del Method Nasal Cannula 09/21/25 07:27 O2 Flow Rate 3 09/21/25 07:27 FiO2 1 09/20/25 19:28 09/20/25 09/21/25 09/21/25 22:59 06:59 14:59 Intake Total 1380 / 1930 343.437 / 2273.437 433.750 / 433.750 Output Total 75 / 75 Balance 1380 / 1930 343.437 / 2273.437 358.750 / 358.750 Weight last 48 hrs Weight 92.125 kg Weight 87.144 kg Physical Exam 2 Const: COMMON NORMALS: no acute distress and patient oriented x3 Resp: COMMON NORMALS: normal respiratory effort EFFORT & INSPECTION: Yes able to speak in complete sentences Cardio: COMMON NORMALS: regular rate and regular rhythm RATE: regular rate RHYTHM: regular rhythm GI: COMMON NORMALS: Normal to inspection, nondistended, normoactive bowel sounds present Neuro: COMMON NORMALS: patient oriented x3 Urinary Catheter Management: Wu: Cath Placed During This Visit: no Reason for Continuing Indwelling Catheter: Accurate Measurement of Urinary Output in Critically Ill Patients Data 09/20/25 05:44 09/21/25 09:58 A&P Assessment and plan 1. ST elevation (STEMI) myocardial infarction: 2. Acute kidney injury: 3. Heart failure with reduced ejection fraction: Plan: 1. Severe sepsis: Patient meets the criteria for severe sepsis Avoid aggressive fluid due to flash pulmonary edema Blood cultures and urine cultures cx negative to date Continue ceftriaxone and azithromycin levophed prn Oxygen therapy as per protocol to maintain oxygen sats above 92% consult critical care 2. 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 - Telemetry monitoring - echo reported: 30-35% EF 3. Acute congestive heart failure: proBNP around 50,000's Patient having signs and symptoms of acute congestive heart failure since he has reduced ejection fraction Cannot continue with Lasix since the patient is requiring norepinephrine and therefore hemodialysis was There were transaminitis high likely all secondary to congestive hepatomegaly, and postdialysis improving Continue to monitor liver enzymes Intake and output monitoring Daily weight base analysis Follow-up cardiac recommendations 4. Flash pulmonary edema: Patient on intermittent hemodialysis and nephrology on board. Monitor intake and output cont to monitor vitals and pulse o2 5. Acute kidney injury: / ESRD worsening multifactorial considering contrast exposure, having pulm edema and therefore could be congestive kidneys? avoid fluids considering patient is having pulm edema Patient did not respond to Lasix HD today plan for tunnel cath when more stable added midodrine 6. Nonrheumatic aortic valve stenosis: Stable, echo reported: Aortic valve is thickened and calcified. Doppler signal is inadequate to assess aortic stenosis. 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 Essential hypertension: Hold off any antihypertensive at the moment since the patient blood pressure on the lower side Plan: VTE: Heparin 5000 units twice daily Diet: Cardiac diet PPI for GI prophylaxis PDMP PDMP Reviewed: Not Reviewed Attestations 2 Medical Necessity Statement*: abx, hd Coding Level of Care Code [address] elevation (STEMI) myocardial infarction I21.3 Acute kidney injury N17.9 Heart failure with reduced ejection fraction I50.20
--- NOTE | 2025-09-21 15:00 | PC.NURSE ---
Daughter has been asking for someone to call her from cardiology. Message left for Dr Saldana.
--- NOTE | 2025-09-21 15:30 | PC.NURSE ---
Daughter will be at bedside at 1930 and would like to speak with cardiology. Message left for Kerry Tan via [facility].
[2025-09-21] MEDS: cefTRIAXone 1,000 mg SDV 1000 MG IVP (16:36)
--- NOTE | 2025-09-21 17:42 | P.PN_ITS ---
Subjective 2 Subjective: getting HD Medications: Reviewed: Yes Vitals/I&O/Wt Last Vital Signs Temp 97.7 F 09/21/25 15:18 Pulse 87 09/21/25 17:00 Resp 25 H 09/21/25 17:00 BP 97/62 09/21/25 17:00 Pulse Ox 97 09/21/25 17:00 O2 Del Method Nasal Cannula 09/21/25 07:27 O2 Flow Rate 3 09/21/25 07:27 FiO2 1 09/20/25 19:28 09/21/25 09/21/25 09/21/25 06:59 14:59 22:59 Intake Total 343.437 / 2273.437 673.750 / 673.750 519.5 / 1193.250 Output Total 75 / 75 3801 / 3876 Balance 343.437 / 2273.437 598.750 / 598.750 -3281.5 / -2682.750 Weight last 48 hrs Weight 88.7 kg Weight 92.125 kg Weight 87.144 kg Physical Exam 2 Narrative: awake , alert , no distress peerla S1S2 RRR Lungs with riky crackles abd - soft , non tender Ext- 2+ edema Skin No rash Urinary Catheter Management: Wu: Cath Placed During This Visit: no Reason for Continuing Indwelling Catheter: Accurate Measurement of Urinary Output in Critically Ill Patients Data 09/20/25 05:44 09/21/25 09:58 A&P Assessment and plan 1. Acute kidney injury: Plan: 1. Acute kidney injury: Multifactorial--cardiorenal , IV contrast exposure - HD started via temporary HD catheter , due to worsening BRANDYN and Oliguria - no renal recovery , will plan for Tunnelled catheter placement on thursday , on low dose levophed 2. Acute respiratory failure , decreased O2 requirement to 1-[address] elevation [place], status post left heart cath and 5 stents placed 4. CHF ejection fraction 30 to 35% Patient evaluated using audiovisual cart. Time spent 40 minutes. PDMP PDMP Reviewed: Not Reviewed Attestations 2 Medical Necessity Statement*: per juni Coding Level of Care Code Acute Code for [facility] Diagnoses Acute kidney injury N17.9
[2025-09-21] MEDS: sennosides-docusate Tablet 1 TAB PO (18:00)
--- NOTE | 2025-09-21 18:21 | PM.CONSULT ---
Providers/Reason For Consult Consulting Physician/Specialty*: Dr Ismael Pickard Reason for Consult*: Shock Attending Physician: Richar Dobbins M.D Primary Care Provider: Brandon Lopez MD History of Present Illness History of Present Illness Anish Colon is a 85 year old male initially admitted on 09/16/2025 with nausea and abdominal discomfort. He was found to have steady status post coronary angiograms and PCI started on aspirin and Plavix. Course complicated by acute kidney injury, acute respiratory failure and acute congestive heart failure. EF found to be 30 to 35%. Nephrology consulted., Dialysis started. Currently on . Plan to get tunneled catheter soon. Medications/Allergies Home Medications ?Medication ?Instructions ?Recorded ?Confirmed ?Last Taken ?Type nitroglycerin 0.4 mg sublingual 0.4 mg sublingual Q5M PRN Chest 11/21/19 09/16/25 10/21/20 History tablet (Nitrostat) Pain 2 tabs omeprazole 20 mg capsule,delayed 20 mg PO BID PRN Acid Reflux 01/16/20 09/16/25 10/21/20 History release amlodipine 5 mg tablet 10 mg (2 x 5 mg) PO DAILY #14 tabs 01/07/22 09/16/25 Unknown Rx hydrocodone 7.5 mg-acetaminophen 1 tab PO Q8H PRN Pain 04/20/23 09/16/25 Unknown History 325 mg tablet furosemide 40 mg tablet 40 mg PO DAILY 12/29/24 09/16/25 Unknown History ketoconazole 2 % shampoo See Rx Instructions .Route .COMPLEX 09/16/25 09/16/25 Unknown History lisinopril 20 mg tablet 20 mg PO BID 09/16/25 09/16/25 Unknown History Allergies Allergy/AdvReac Type Severity Reaction Status Date / Time amoxicillin (From Augmentin) Allergy ALGY-Rash Verified 08/31/25 10:19 clavulanic acid (From Allergy ALGY-Rash Verified 08/31/25 10:19 Augmentin) clopidogrel (From Plavix) Allergy ALGY-Joint Verified 08/31/25 10:19 Pain Vpwnxug-UJI-BxC Reductase Allergy ADV-Weaknes Verified 08/31/25 10:19 Inhibitor (Kvbuwuf-Hag-Clm s Reductase Inhibitor) sulfamethoxazole (From Allergy ALGY-Rash Verified 08/31/25 10:19 Bactrim) trimethoprim (From Bactrim) Allergy ALGY-Rash Verified 08/31/25 10:19 Current Medications Generic Name Dose Route Start Last Admin Trade Name Freq PRN Reason Stop Dose Admin Hydrocodone Bitart/Acetaminophen 1 tab 09/16/25 14:29 09/19/25 23:25 Hydrocodone-Acetaminophen 7.5-325 Mg Tablet PO 1 tab Q8H PRN Administration PAIN Al Hydrox/Mg Hydrox/Simethicone 30 ml 09/16/25 14:30 09/21/25 16:07 Lnbi-Cfw-Pulwqduhf-Hoda 30 Ml Udc PO Not Given Q4H LAURA Amiodarone HCl 400 mg 09/21/25 10:00 09/21/25 18:00 Amiodarone 200 Mg Tablet PO 400 mg BID LAURA Administration Aspirin 81 mg 09/21/25 10:00 09/21/25 10:41 Aspirin 81 Mg Ec Tablet PO 81 mg DAILY LAURA Administration Ceftriaxone Sodium 1,000 mg 09/17/25 11:15 09/21/25 16:36 Ceftriaxone 1,000 Mg Sdv IVP 1,000 mg Q24H LAURA Administration Protocol Docusate Sodium 100 mg 09/20/25 09:46 09/20/25 12:03 Docusate Sodium 100 Mg Capsule PO 100 mg DAILY PRN Administration CONSTIPATION Heparin Sodium (Porcine) 5,000 unit 09/17/25 10:00 09/21/25 10:43 Heparin 5,000 Unit/Ml Inj 1 Ml SUBCUT 5,000 unit Q12H LAURA Administration Norepinephrine Bitartrate 4 mg in 250 mls @ 0 mls/hr 09/16/25 11:00 09/21/25 15:00 Levophed IV 5 mcg/min .Q0M LAURA 18.75 mls/hr Protocol Titration Per Protocol Nitroglycerin/Dextrose 50 mg in 250 mls @ 0 mls/hr 09/16/25 14:45 09/17/25 12:33 Nitroglycerin Drip IV 0 mcg/min .Q0M LAURA 0 mls/hr Protocol Titration Per Protocol Midodrine 10 mg 09/21/25 13:00 09/21/25 13:31 Midodrine 5 Mg Tablet PO 10 mg TID LAURA Administration Morphine Sulfate 2 mg 09/17/25 20:23 09/21/25 05:39 Morphine 4 Mg/Ml Sdv 1 Ml IVP 2 mg Q1H PRN Administration SEVERE PAIN Ondansetron HCl 8 mg 09/21/25 10:00 09/21/25 18:01 Ondansetron 2 Mg/Ml Sdv 2 Ml IVP 8 mg Q8H LAURA Administration Pantoprazole Sodium 40 mg 09/21/25 10:00 09/21/25 10:51 Pantoprazole 40 Mg Sdv IVP 40 mg DAILY LAURA Administration Polyethylene Glycol 17 gm 09/20/25 09:46 09/21/25 10:41 Polyethylene Glycol 3350 Pkt 17 Gm PO 17 gm DAILY LAURA Administration Senna 17.2 mg 09/16/25 21:00 09/20/25 21:14 Sennosides 8.6 Mg Tablet PO 17.2 mg BEDTIME LAURA Administration Senna/Docusate Sodium 1 tab 09/21/25 17:00 09/21/25 18:00 Sennosides-Docusate Tablet PO 1 tab BID LAURA Administration PFSH Acute PFSH: Medical History (Updated 09/21/25 @ 10:32 by Kerry Tan NP) Aortic stenosis Bilateral hydrocele Elevated PSA BPH with obstruction/lower urinary tract symptoms Hypertension Coronary artery disease history of CABG x3, 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 Superficial thrombophlebitis DVT (deep venous thrombosis) Surgical History History of [place] fundoplication S/P TURP (status post transurethral resection of prostate) History of hernia repair Hx of CABG H/O angioplasty History of cholecystectomy H/O transurethral resection of prostate 03/2018 Family History Brother CAD (coronary artery disease) Father CAD (coronary artery disease) Hyperlipidemia Hypertension Mother Cancer Sister Cancer Diabetes Son Diabetes Denies family history of Clotting disorder Dementia Psychiatric illness Chronic kidney disease (CKD) Suicide Anesthesia complication Bleeding disorder Family history of premature coronary artery disease Stroke Social History Smoking and tobacco/nicotine status: unknown if used tobacco/nicotine Second hand smoke exposure: Yes Alcohol intake: current Substance/Drug Use: unknown Adopted: No Caregiver/support person: No Lives independently: No Household members: spouse Marital status: Current occupational status: retired Vitals/I&O/Wt Last Vital Signs Temp 97.7 F 09/21/25 15:18 Pulse 87 09/21/25 17:00 Resp 25 H 09/21/25 17:00 BP 97/62 09/21/25 17:00 Pulse Ox 97 09/21/25 17:00 O2 Del Method Nasal Cannula 09/21/25 07:27 O2 Flow Rate 3 09/21/25 07:27 FiO2 1 09/20/25 19:28 09/21/25 09/21/25 09/21/25 06:59 14:59 22:59 Intake Total 343.437 / 2273.437 673.750 / 673.750 519.5 / 1193.250 Output Total 75 / 75 3801 / 3876 Balance 343.437 / 2273.437 598.750 / 598.750 -3281.5 / -2682.750 Weight last 48 hrs Weight 195 lb 8.8 oz Weight 203 lb 1.6 oz Weight 192 lb 1.92 oz Physical Exam Urinary Catheter Management: Wu: Cath Placed During This Visit: no Reason for Continuing Indwelling Catheter: Accurate Measurement of Urinary Output in Critically Ill Patients Data 09/20/25 05:44 09/21/25 09:58 A&P Assessment and plan 1. Acute congestive heart failure: 2. Aortic stenosis: 3. Flash pulmonary edema: Plan: # Acute hypoxemic respiratory failure-present on admission most likely secondary to acute flash pulm edema - Bronchopulmonary to bronchodilator therapy. Encourage out of bed and ambulation along with incentive spirometer. Wean off O2 as tolerated keep O2 sats above 92% # PVC/vtach. Continue Amio twice daily # Cardiogenic shock-most likely Wean off levo as tolerated keep MAP above 65. Currently at 4 Add midodrine # Acute kidney injury-recent creatinine 5.4 09/21/2025 # STEMI status post PCI on aspirin Plavix currently Cardiology following appreciate help # Acute cardiomyopathy EF of 30% Cardiology following appreciate help #Pneumonia CT scan done on 09/16/2025-showing essentially clear lungs but abdomen/pelvis CT from 09/21/25 shows pulmonary infiltrates bibasilar suggestive of atelectasis mixed with probable pneumonia. Continue ceftriaxone # Hyperglycemia # Nutrition-tolerating oral intake # DVT GI prophylaxis-SCDs and aspirin Plavix # Goals of care-defer to primary team # CODE STATUS- FULL # Disposition-Will need full ICU support follow-up The high probability of a clinically significant, sudden or life threatening deterioration of the patient's [Respiratory, cardiac and renal] system(s) required my full and direct attention, intervention and personal management. The critical care time is as shown. This time is in addition to time spent performing any reported procedures but includes the following: [x] Data and vital sign review and interpretation [x] Patient assessment, examination and intervention [x] Documentation [x] Medication orders and management Critical Care Time (min): 40 Telemedicine Consent Patient seen today via Telemedicine by agreement and consent of patient.? Telemedicine technology used during the visit includes audio and, as available, review of images.? The patient encounter is appropriate and reasonable under the circumstances given the patient?s particular presentation at this time.? The patient has been advised of the potential risks and limitations of this mode of treatment (including but not limited to the absence of in-person examination) and has agreed to be treated in a remote fashion in spite of them.? PDMP PDMP Reviewed: Not Reviewed Coding Level of Care Code Critical Care >/= 30 minutes Diagnoses Acute congestive heart failure I50.9 Aortic stenosis I35.0 Flash pulmonary edema J81.0
--- NOTE | 2025-09-21 19:51 | PC.NURSE ---
Daughter's name and phone number left for Kerry Tan from cardiology. Also notified that Dr Jaime discontinued pt's Plavix.
--- NOTE | 2025-09-21 20:35 | PC.NURSE ---
Pain medication/stool softener Patient requesting morphine for his back pain. Education provided on possible opiate side effect of constipation. Patient stated he understood but stated I need the morphine for my back pain. I don't think I'm constipated anymore. I had a bowel movement today and my bowels are empty. Education provided on prevention of constipation in the future and possibility of utilizing different pain medication, patient verbalized understanding and stated he still wanted morphine for his pain. When time to administer senna lax, patient stated again that he did not need or want it due to the fact that he is not constipated. Education provided regarding keeping his bowels regular. Patient still refused.
[2025-09-22] VITALS (97 sets, daily range): BP systolic 79–114; BP diastolic 46–69; PULSE 77–109; RESP 12–27; TEMP 36.3–36.4; O2SAT 88–99
[2025-09-22] MEDS: alum-mag-hydroxide-sime 30 mL UDC PO ×3 (01:11→13:16)
--- NOTE | 2025-09-22 01:57 | PC.NURSE ---
Abdominal pain Patient complaining of abdominal pain, belching, and nausea. Furthermore, patient's QT recorded longer than previously on cardiac monitoring. When asked if zofran helped with his abdominal symptoms, patient stated that it didn't help. Dr. Nichols notified; physician placed order for reglan and discontinuation of zofran.
[2025-09-22] MEDS: metoclopramide 5 mg/mL SDV 2 mL IVP ×2 (02:22→19:16)
[2025-09-22] MEDS: norepinephrine 4 MG/250 ML BAG 15 MG IV (02:22)
[2025-09-22] MEDS: pantoprazole 40 mg SDV IVP (05:32)
[2025-09-22] MEDS: polyethylene glycol 3350 Pkt 17 gm PO (06:56)
--- NOTE | 2025-09-22 08:48 | PC.NURSE ---
Dr. Dobbins ordered to load patient up with 600 mg of plavix one time. Patient was given the plavix in different ways but states they can't tolerate the swallowing of the pill due to it burning his throat.
[2025-09-22 09:11] LABS: Hematocrit 30.0 % (37-53); Hemoglobin 10.00 g/dL (11.27-16.99); Mean Corpuscular HGB Conc 33.3 g/dL (30-55); Mean Corpuscular Hemoglobin 31.9 pg (27-33); Mean Corpuscular Volume 95.8 fl (82-101); Nucleated Red Blood Cells % 0.2 %; Platelet Count 208 10^3/cmm (157-399); Red Blood Count 3.13 10^6/uL (3.85-5.65); White Blood Count 11.44 10^3/uL (3.29-11.43)
--- NOTE | 2025-09-22 09:28 | PC.SOCIAL ---
IMM Update pg 2 of IMM Updated and reviewed w/ patient. Copy provided and copy dated, initialed and placed in chart.
[2025-09-22] MEDS: heparin 5,000 unit/mL INJ 1 mL 5000 UNIT SUBCUT ×2 (09:34→21:02)
--- NOTE | 2025-09-22 09:52 | PC.NURSE ---
Patient is unable to tolerate PO medications at this moment. Plavix and Brilinta have not been given and Dr. Dobbins has been notified and has talked to the patient.
[2025-09-22 10:34] LABS: Alanine Aminotransferase 39 U/L (0-41); Albumin Level 3.6 g/dL (3.5-5.2); Alkaline Phosphatase 74 U/L (40-130); Blood Urea Nitrogen 75 mg/dL (8-23); Calcium 8.6 mg/dL (8.5-10.5); Carbon Dioxide 21 mmol/L (22-29); Chloride 92 mmol/L (98-107); Globulin 2.8 g/dL (1.3-4.6); Glucose 175 mg/dL (65-115); Osmolality Calculated 295 mOsm/kg (285-295); Sodium 129 mmol/L (136-145); Total Protein 6.4 g/dL (6.6-8.7)
[2025-09-22 10:39] LABS: Anion Gap 22.1 (5-19); Aspartate Amino Transferase 36 U/L (0-40); Potassium 6.1 mmol/L (3.5-5.1)
--- NOTE | 2025-09-22 10:54 | FL_ITS ---
WS: [id number] Exam: FL barium swallow modifd [id number] Date/Time of Exam: 09/22/2025 10:54 AM Reason For Exam: Other dysphagia Fluoroscopy time: 4min [id number] minutes # of spot films: Modified barium swallow study was performed in conjunction with the speech therapy service. The patient experienced some difficulty during oral pharyngeal phase of swallowing. Specifically the patient had some difficulty elevating the tongue to the hard palate to initiate swallowing. The patient tolerated all consistencies of barium mixture foodstuffs without penetration or aspiration. The patient swallowed a barium tablet without complication. The tablet was retained into a cystic structure along the lower LEFT margin of the esophagus that either represents a small paraesophageal hiatal hernia or an esophageal diverticulum. Probably hiatal hernia. FL/FL barium swallow modifd [id number] IMPRESSION: 1. Abnormal oropharyngeal phase of swallowing. See above discussion. 2. No aspiration or penetration. 3. The barium tablet was retained in a cystic structure along the left margin o f the distal esophagus which could be a diverticulum but is most likely a parae sophageal hiatal hernia.
[2025-09-22] MEDS: lidocaine 2% viscous 15 ML, aluminum-mag hydrox-simethicon 30 ML, sucralfate oral liq 1 GM PO (11:17)
[2025-09-22 11:37] LABS: INR 1.00 (0.8-1.2); Partial Thromboplastin Time 32.6 SECONDS (23.9-36.7); Prothrombin Time 13.90 SECONDS (12.1-14.9)
--- NOTE | 2025-09-22 13:02 | P.PN_ITS ---
Subjective 2 Subjective: Patient has no new complaints on 2L o2. He is on LEvophed 3 mcg/min . Medications: Reviewed: Yes Vitals/I&O/Wt Last Vital Signs Temp 97.4 F L 09/22/25 07:30 Pulse 83 09/22/25 09:15 Resp 26 H 09/22/25 09:15 BP 90/51 09/22/25 09:15 Pulse Ox 94 09/22/25 09:15 O2 Del Method Nasal Cannula 09/22/25 09:15 O2 Flow Rate 2 09/22/25 09:15 FiO2 1 09/20/25 19:28 09/21/25 09/22/25 09/22/25 22:59 06:59 14:59 Intake Total 1059.51 / 1733.260 275.865 / 2009.125 Output Total 3801 / 3876 Balance -2741.49 / -2142.740 275.865 / -1866.875 Weight last 48 hrs Weight 88.7 kg Weight 92.125 kg Physical Exam 2 Narrative: GEN: nad, alert, conversant HEAD: normocephalic, atraumatic EYES: eomi, anicteric sclera HEENT: mmm NECK: no jvd CV: rrr LUNGS: ctab ABD: soft, nt, nd EXT: trace pedal edema NEURO: grossly normal SKIN: no rash Urinary Catheter Management: Wu: Cath Placed During This Visit: no Reason for Continuing Indwelling Catheter: Accurate Measurement of Urinary Output in Critically Ill Patients Data 09/22/25 09:03 09/22/25 10:11 A&P Assessment and plan 1. Acute kidney injury: Plan: 1. Acute kidney injury- The etiology of his brandyn is likely multifactorial- cardiorenal syndrome, contrast nephropathy - He was initiated on HD started via temporary HD catheter due to worsening BRANDYN and Oliguria. he remains oliguric. i will plan on HD tomorrow with uf as tolerared - Plan for Tunnelled catheter placement on thursday, 09/25. 2. Acute respiratory failure- improved. i will cont uf with hd 3. ST elevation PA- status post left heart cath and 5 stents placed 4. chronic systolic CHF ef 30-35%- i will cont uf with hd PDMP PDMP Reviewed: Not Reviewed Attestations 2 Medical Necessity Statement*: brandyn requiring HD Time Spent in Patient Care: 25 minutes Coding Level of Care Code Acute Code for [facility] Diagnoses Acute kidney injury N17.9
--- NOTE | 2025-09-22 14:10 | P.PN_ITS ---
<Statement entered by Richar Dobbins M.D - 09/26/25 17:36> Patient was cared for in conjunction with an advanced practice practitioner.? I reviewed the chart and all pertinent data including imaging, telemetry, and laboratory results.? I discussed the patient in detail with the advanced practice practitioner.? Please see?their documentation for progress note, testing results and agreed upon plan of care for the patient. Subjective 2 Subjective: Patient has not taken Plavix yesterday. Patient states that his throat hurts when he swallows. No penetration or aspiration seen on barium swallow obtained today. 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 Still on Levophed at 3. Dialysis per nephrology. Denies chest pain or shortness of breath. Vitals/I&O/Wt Last Vital Signs Temp 97.4 F L 09/22/25 07:30 Pulse 83 09/22/25 14:00 Resp 24 H 09/22/25 14:00 BP 97/63 09/22/25 14:00 Pulse Ox 99 09/22/25 14:00 O2 Del Method Nasal Cannula 09/22/25 14:00 O2 Flow Rate 2 09/22/25 14:00 FiO2 1 09/20/25 19:28 09/21/25 09/22/25 09/22/25 22:59 06:59 14:59 Intake Total 1059.51 / 1733.260 275.865 / 2009.125 Output Total 3801 / 3876 Balance -2741.49 / -2142.740 275.865 / -1866.875 Weight last 48 hrs Weight 195 lb 8.8 oz Weight 203 lb 1.6 oz Physical Exam 2 Narrative: General: No apparent distress HENMT: normoceophalic Muskuloskeletal: Full ROM Respiratory: Normal respiratory effort, clear on the left but right lower anterior lobe diminished, no use of accessory muscles Cardio: No JVD, regular rate, regular rhythm, S1 S2 normal, no murmurs, peripheral pulses 2+ radial palpated bilaterally GI: Normal to inspection, nondistended Extremities: Full ROM, normal, normal capillary refill, no cyanosis or edema Neuro: Alert and oriented x4 Psych: Affect normal, denies suicidal ideation, mental status grossly normal Skin: Right groin slight bruising w/o evidence of hematoma, soft Urinary Catheter Management: Wu: Cath Placed During This Visit: no Reason for Continuing Indwelling Catheter: Accurate Measurement of Urinary Output in Critically Ill Patients Data 09/22/25 09:03 09/22/25 10:11 Micro: Microbiology 09/17/25 13:31 Blood Culture - Final Blood NO GROWTH AFTER 5 DAYS 09/17/25 13:30 Blood Culture - Final Blood NO GROWTH AFTER 5 DAYS A&P Assessment and plan 1. ST elevation (STEMI) myocardial infarction: 2. Coronary artery disease: 3. Hypertension: 4. Aortic stenosis: 5. Heart failure with reduced ejection fraction: 6. Acute kidney injury: 7. Mitral valve regurgitation: Plan: Patient stated he was not wanting to take his medication because his throat hurt when he swallowed. Denies any choking episodes. We discussed with the patient that it is imperative that he at least takes his Plavix and aspirin because without this would likely have another heart attack resulting in . Patient verbalized understanding. At first, we were going to do IV aggrastat, but patient has now stated he wants to take the Plavix. We will load him with 600 mgx1 dose then start 75 mg daily tomorrow. Patient is getting dialysis today with plans for tunnelled dialysis catheter Thursday. We appreciate nephrology assistance. Currently requiring levo at 3. Wean as tolerated. Echo showed EF 34% with severe mitral regurgitation. At this time fluid is being removed via dialysis. Continue amio BID for PVC/vtach. Continue asprin and plavix. Swallowing difficulty per hospitalist team. We appreciate their assistance. PDMP PDMP Reviewed: Not Reviewed Attestations 2 Medical Necessity Statement*: Stay expected to cross 2 midnignts due to STEMI and BRANDYN requiring dialysis and pressors. Coding Level of Care Code Acute Code for [facility] Diagnoses ST elevation (STEMI) myocardial infarction I21.3 Coronary artery disease I25.10 Hypertension I10 Aortic stenosis I35.0 Heart failure with reduced ejection fraction I50.20 Acute kidney injury N17.9 Mitral valve regurgitation I34.0
[2025-09-22] MEDS: cefTRIAXone 1,000 mg SDV 1000 MG IVP (15:27)
--- NOTE | 2025-09-22 17:29 | P.PN_ITS ---
Subjective 2 Subjective: Anish Colon is a 85 year old male initially admitted on 09/16/2025 with nausea and abdominal discomfort. He was found to have steady status post coronary angiograms and PCI started on aspirin and Plavix. Course complicated by acute kidney injury, acute respiratory failure and acute congestive heart failure. EF found to be 30 to 35%. Nephrology consulted., Dialysis started. Currently on . Plan to get tunneled catheter soon. 09/22/2025 Appears tired but sitting up in chair. Less cough and sputum production today. Has not been using his incentive spirometer as much as he should be. Vitals/I&O/Wt Last Vital Signs Temp 97.4 F L 09/22/25 07:30 Pulse 86 09/22/25 14:09 Resp 24 H 09/22/25 14:00 BP 97/63 09/22/25 14:00 Pulse Ox 99 09/22/25 14:00 O2 Del Method Nasal Cannula 09/22/25 14:00 O2 Flow Rate 2 09/22/25 14:00 FiO2 1 09/20/25 19:28 09/22/25 09/22/25 09/22/25 06:59 14:59 22:59 Intake Total 275.865 / 2009.125 106.313 / 106.313 Balance 275.865 / -1866.875 106.313 / 106.313 Weight last 48 hrs Weight 195 lb 8.8 oz Weight 203 lb 1.6 oz Physical Exam 2 Narrative: Per RN General: Frail elderly gentleman sitting up in chair HEENT: EOMI Pulmonary: Diminished breath sounds bilaterally Cardiovascular: rrr, nl s1s2, Abdomen: soft, nt, nd, no r/g, Extremities: no edema Neurologic: grossly intact Agree with above exam Urinary Catheter Management: Wu: Cath Placed During This Visit: no Reason for Continuing Indwelling Catheter: Accurate Measurement of Urinary Output in Critically Ill Patients Data 09/22/25 09:03 09/22/25 10:11 Micro: Microbiology 09/17/25 13:31 Blood Culture - Final Blood NO GROWTH AFTER 5 DAYS 09/17/25 13:30 Blood Culture - Final Blood NO GROWTH AFTER 5 DAYS A&P Assessment and plan 1. Acute congestive heart failure: 2. Aortic stenosis: 3. Flash pulmonary edema: Plan: # Acute hypoxemic respiratory failure-present on admission most likely secondary to acute flash pulm edema - Bronchopulmonary to bronchodilator therapy. Encourage out of bed and ambulation along with incentive spirometer.-Encouraged use at least 2-3 times a day. Wean off O2 as tolerated keep O2 sats above 92% Continue UF with HD # PVC/vtach. Continue Amio twice daily Reviewed cardiology notes appreciate help # Cardiogenic shock-most likely EF 30 to 35% with severe mitral regurgitation Wean off levo as tolerated keep MAP above 65. Currently at 4-MAP is 75 continue to wean. Discussed case with nurse Continue midodrine # Acute kidney injury-recent creatinine 6.4 09/21/2025 Continue HD per nephrology. Tunneled catheter placement planned for Tuesday 09/25 Reviewed nephrology notes, appreciate # STEMI status post PCI on aspirin Plavix currently Cardiology following appreciate help Status post PCI 5 stents placed EF 30 to 35% # Acute cardiomyopathy EF of 30% Cardiology following appreciate help #Pneumonia CT scan done on 09/16/2025-showing essentially clear lungs but abdomen/pelvis CT from 09/21/25 shows pulmonary infiltrates bibasilar suggestive of atelectasis mixed with probable pneumonia. Continue ceftriaxone # Hyperglycemia # Nutrition-tolerating oral intake # DVT GI prophylaxis-SCDs and aspirin Plavix # Goals of care-defer to primary team # CODE STATUS- FULL # Disposition-Will need full ICU support follow-up The high probability of a clinically significant, sudden or life threatening deterioration of the patient's [Respiratory, cardiac and renal] system(s) required my full and direct attention, intervention and personal management. The critical care time is as shown. This time is in addition to time spent performing any reported procedures but includes the following: [x] Data and vital sign review and interpretation [x] Patient assessment, examination and intervention [x] Documentation [x] Medication orders and management Critical Care Time (min): 31 Telemedicine Consent Patient seen today via Telemedicine by agreement and consent of patient.? Telemedicine technology used during the visit includes audio and, as available, review of images.? The patient encounter is appropriate and reasonable under the circumstances given the patient?s particular presentation at this time.? The patient has been advised of the potential risks and limitations of this mode of treatment (including but not limited to the absence of in-person examination) and has agreed to be treated in a remote fashion in spite of them.? PDMP PDMP Reviewed: Not Reviewed Attestations 2 Medical Necessity Statement*: On pressors Coding Level of Care Code Critical Care >/= 30 minutes Diagnoses Acute congestive heart failure I50.9 Aortic stenosis I35.0 Flash pulmonary edema J81.0
--- NOTE | 2025-09-22 19:38 | P.PN_ITS ---
Subjective 2 Subjective: reports dysphagia sore throat Vitals/I&O/Wt Last Vital Signs Temp 97.4 F L 09/22/25 07:30 Pulse 82 09/22/25 18:00 Resp 16 09/22/25 18:00 BP 99/56 09/22/25 18:00 Pulse Ox 90 09/22/25 18:00 O2 Del Method Nasal Cannula 09/22/25 18:00 O2 Flow Rate 2 09/22/25 18:00 FiO2 1 09/20/25 19:28 09/22/25 09/22/25 09/22/25 06:59 14:59 22:59 Intake Total 275.865 / 2009.125 387.563 / 387.563 Balance 275.865 / -1866.875 387.563 / 387.563 Weight last 48 hrs Weight 88.7 kg Weight 92.125 kg Physical Exam 2 Const: COMMON NORMALS: no acute distress and patient oriented x3 Resp: COMMON NORMALS: normal respiratory effort EFFORT & INSPECTION: Yes able to speak in complete sentences Cardio: COMMON NORMALS: regular rate and regular rhythm RATE: regular rate RHYTHM: regular rhythm GI: COMMON NORMALS: Normal to inspection, nondistended, normoactive bowel sounds present Neuro: COMMON NORMALS: patient oriented x3 Urinary Catheter Management: Wu: Cath Placed During This Visit: no Reason for Continuing Indwelling Catheter: Accurate Measurement of Urinary Output in Critically Ill Patients Data 09/22/25 09:03 09/22/25 10:11 Micro: Microbiology 09/17/25 13:31 Blood Culture - Final Blood NO GROWTH AFTER 5 DAYS 09/17/25 13:30 Blood Culture - Final Blood NO GROWTH AFTER 5 DAYS A&P Assessment and plan 1. 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 - Telemetry monitoring - echo reported: 30-35% EF # Acute congestive heart failure: Flash pulmonary edema: proBNP around 50,000's Patient having signs and symptoms of acute congestive heart failure since he has reduced ejection fraction Cannot continue with Lasix since the patient is requiring norepinephrine and therefore hemodialysis was There were transaminitis high likely all secondary to congestive hepatomegaly, and postdialysis improving #Acute kidney injury: / ESRD worsening multifactorial considering contrast exposure, having pulm edema and therefore could be congestive kidneys? avoid fluids considering patient is having pulm edema Patient did not respond to Lasix HD per nephrology plan for tunnel cath when more stable added midodrine FU labs # Nonrheumatic aortic valve stenosis: Stable, echo reported: Aortic valve is thickened and calcified. Doppler signal is inadequate to assess aortic stenosis. monitor for symptoms #BPH with obstruction/lower urinary tract symptoms: Patient on Wu's catheter, monitor for intake and output Home medication reviewed, hold tamsulosin since the patient blood pressure is on the softer side and required norepinephrine PDMP PDMP Reviewed: Not Reviewed Attestations 2 Medical Necessity Statement*: HD Coding Level of Care Code 45963 Diagnoses Dysphagia R13.10
[2025-09-22 20:24] LABS: Anion Gap 23.1 (5-19); Calcium 8.4 mg/dL (8.5-10.5); Carbon Dioxide 19 mmol/L (22-29); Chloride 94 mmol/L (98-107); Glucose 178 mg/dL (65-115); Osmolality Calculated 302 mOsm/kg (285-295); Potassium 5.1 mmol/L (3.5-5.1); Sodium 131 mmol/L (136-145)
[2025-09-22 20:31] LABS: Blood Urea Nitrogen 84 mg/dL (8-23)
[2025-09-22] MEDS: nystatin 100,000 unit/mL UDC 5 mL 200000 UNIT PO (22:15)
--- NOTE | 2025-09-22 23:00 | PC.NURSE ---
Critical labs: Dr. Nichols gave telephone orders to recheck BMP. Results showed an increase in BUN and Nursing Support Worker, Dr. Nichols notified.
[2025-09-22] MEDS: HYDROcodone-acetaminophen 7.5-325 mg Tablet 1 TAB PO (23:18)
--- NOTE | 2025-09-22 23:20 | PC.NURSE ---
Abdominal pain/heartburn: Patient complaining of abdominal pain and heartburn, refused Maalox and stool softners. This nurse educated patient on importance of stool softners and the benefits of Maalox, patient still refused and requested hydrocodone for abdominal pain.
[2025-09-22] MEDS: norepinephrine 4 MG/250 ML BAG 7.5 MG IV (23:40)
[2025-09-23] VITALS (96 sets, daily range): BP systolic 85–116; BP diastolic 49–71; PULSE 75–95; RESP 14–37; TEMP 35.7–36.9; O2SAT 91–100
--- NOTE | 2025-09-23 02:44 | PC.NURSE ---
Maalox: Patient continues to complain of abdominal pain but refuses Maalox stating it tastes bad . This nurse educated patient on the potential benefits of Maalox, patient still refused, then requested tylenol for the pain.
[2025-09-23 03:49] LABS: Hematocrit 29.1 % (37-53); Hemoglobin 9.60 g/dL (11.27-16.99); Mean Corpuscular HGB Conc 33.0 g/dL (30-55); Mean Corpuscular Hemoglobin 31.6 pg (27-33); Mean Corpuscular Volume 95.7 fl (82-101); Nucleated Red Blood Cells % 0.4 %; Platelet Count 199 10^3/cmm (157-399); Red Blood Count 3.04 10^6/uL (3.85-5.65); White Blood Count 10.09 10^3/uL (3.29-11.43)
[2025-09-23 04:10] LABS: Alanine Aminotransferase 39 U/L (0-41); Albumin Level 3.8 g/dL (3.5-5.2); Alkaline Phosphatase 82 U/L (40-130); Calcium 8.5 mg/dL (8.5-10.5); Carbon Dioxide 20 mmol/L (22-29); Chloride 91 mmol/L (98-107); Globulin 2.4 g/dL (1.3-4.6); Glucose 166 mg/dL (65-115); Osmolality Calculated 296 mOsm/kg (285-295); Sodium 128 mmol/L (136-145); Total Protein 6.2 g/dL (6.6-8.7)
[2025-09-23 04:14] LABS: Anion Gap 22.5 (5-19); Aspartate Amino Transferase 34 U/L (0-40); Potassium 5.5 mmol/L (3.5-5.1)
[2025-09-23 04:15] LABS: Blood Urea Nitrogen 85 mg/dL (8-23)
[2025-09-23] MEDS: nystatin 100,000 unit/mL UDC 5 mL 200000 UNIT PO ×4 (05:27→22:15)
[2025-09-23] MEDS: pantoprazole 40 mg SDV IVP (05:28)
[2025-09-23] MEDS: polyethylene glycol 3350 Pkt 17 gm PO (05:54)
--- NOTE | 2025-09-23 07:00 | PC.NURSE ---
Report received from Charlotte SANCHEZ states patient with dialysis catheter in right neck - dressing difficult to maintain due to patients activity. Stated catheter appears not to be sutured in place, and catheter 2 cm exposed for site to hub. Additional tape added to secure catheter at shift change.
[2025-09-23] MEDS: heparin 5,000 unit/mL INJ 1 mL 5000 UNIT SUBCUT ×2 (09:25→22:15)
[2025-09-23] MEDS: HYDROcodone-acetaminophen 7.5-325 mg Tablet 1 TAB PO ×2 (09:25→23:44)
--- NOTE | 2025-09-23 09:30 | PC.NURSE ---
Dialysis nurse updated on exposed catheter length of 2 cm under dressing. Will check when starts dialysis. Catheter distal ends secured to neck with tape.
--- NOTE | 2025-09-23 11:05 | P.PN_ITS ---
Subjective 2 Subjective: Patient is complaining of fatigue on 2L o2. He is on Levophed 4mcg/min Medications: Reviewed: Yes Vitals/I&O/Wt Last Vital Signs Temp 97.5 F L 09/23/25 05:45 Pulse 82 09/23/25 10:45 Resp 18 09/23/25 10:45 BP 89/50 09/23/25 10:45 Pulse Ox 95 09/23/25 10:45 O2 Del Method Nasal Cannula 09/23/25 07:55 O2 Flow Rate 2 09/23/25 07:55 FiO2 1 09/20/25 19:28 09/22/25 09/23/25 09/23/25 22:59 06:59 14:59 Intake Total 667.563 / 667.563 551.062 / 1218.625 75.375 / 75.375 Output Total 100 / 100 Balance 667.563 / 667.563 451.062 / 1118.625 75.375 / 75.375 Weight last 48 hrs Weight 92.669 kg Weight 88.7 kg Physical Exam 2 Narrative: GEN: nad, alert, conversant HEAD: normocephalic, atraumatic EYES: eomi, anicteric sclera HEENT: mmm NECK: no jvd CV: rrr LUNGS: ctab ABD: soft, nt, nd EXT: trace pedal edema NEURO: grossly normal SKIN: no rash Urinary Catheter Management: Wu: Cath Placed During This Visit: no Reason for Continuing Indwelling Catheter: Accurate Measurement of Urinary Output in Critically Ill Patients Data 09/23/25 03:29 09/23/25 03:29 Micro: Microbiology 09/17/25 13:31 Blood Culture - Final Blood NO GROWTH AFTER 5 DAYS 09/17/25 13:30 Blood Culture - Final Blood NO GROWTH AFTER 5 DAYS A&P Assessment and plan 1. Acute kidney injury: Plan: 1. Acute kidney injury- The etiology of his brandyn is likely multifactorial- cardiorenal syndrome, contrast nephropathy - He was initiated on HD started via temporary HD catheter due to worsening BRANDYN and Oliguria. he remains oliguric. i will plan on HD today with uf as tolerared - Plan for Tunnelled catheter placement on thursday, 09/25. 2. Acute respiratory failure- improved. i will cont uf with hd 3. ST elevation NV- status post left heart cath and 5 stents placed 4. chronic systolic CHF ef 30-35%- i will cont uf with hd PDMP PDMP Reviewed: Not Reviewed Attestations 2 Medical Necessity Statement*: brandyn requiring HD Time Spent in Patient Care: 25 minurtes Coding Level of Care Code Acute Code for [facility] Diagnoses Acute kidney injury N17.9
[2025-09-23] MEDS: lidocaine 2% viscous 15 ML, diphenhydrAMINE oral liq 37.5 MG, aluminum-mag hydrox-simet... MUCOUS MEM (11:07)
[2025-09-23] MEDS: phenol oral Spray 177 mL 3 SPRAY MUCOUS MEM (14:26)
--- NOTE | 2025-09-23 15:24 | P.PN_ITS ---
Subjective 2 Subjective: reports dysphagia plan for HD today Vitals/I&O/Wt Last Vital Signs Temp 98.4 F 09/23/25 14:00 Pulse 83 09/23/25 14:00 Resp 22 H 09/23/25 14:00 BP 97/62 09/23/25 14:00 Pulse Ox 91 09/23/25 14:00 O2 Del Method Nasal Cannula 09/23/25 07:55 O2 Flow Rate 2 09/23/25 07:55 FiO2 1 09/20/25 19:28 09/23/25 09/23/25 09/23/25 06:59 14:59 22:59 Intake Total 551.062 / 1218.625 165.375 / 165.375 Output Total 100 / 100 200 / 200 Balance 451.062 / 1118.625 -34.625 / -34.625 Weight last 48 hrs Weight 92.669 kg Physical Exam 2 Const: COMMON NORMALS: no acute distress and patient oriented x3 Resp: COMMON NORMALS: normal respiratory effort EFFORT & INSPECTION: Yes able to speak in complete sentences Cardio: COMMON NORMALS: regular rate and regular rhythm RATE: regular rate RHYTHM: regular rhythm GI: COMMON NORMALS: Normal to inspection, nondistended, normoactive bowel sounds present Neuro: COMMON NORMALS: patient oriented x3 Urinary Catheter Management: Wu: Cath Placed During This Visit: no Reason for Continuing Indwelling Catheter: Accurate Measurement of Urinary Output in Critically Ill Patients Data 09/23/25 03:29 09/23/25 03:29 Micro: Microbiology 09/17/25 13:31 Blood Culture - Final Blood NO GROWTH AFTER 5 DAYS 09/17/25 13:30 Blood Culture - Final Blood NO GROWTH AFTER 5 DAYS A&P Assessment and plan 1. 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 - Telemetry monitoring - echo reported: 30-35% EF # Acute congestive heart failure: Flash pulmonary edema: proBNP around 50,000's Patient having signs and symptoms of acute congestive heart failure since he has reduced ejection fraction Cannot continue with Lasix since the patient is requiring norepinephrine and therefore hemodialysis was There were transaminitis high likely all secondary to congestive hepatomegaly, and postdialysis improving #Acute kidney injury: / ESRD worsening multifactorial considering contrast exposure, having pulm edema and therefore could be congestive kidneys? avoid fluids considering patient is having pulm edema Patient did not respond to Lasix HD per nephrology plan for tunnel cath when more stable added midodrine FU labs # Nonrheumatic aortic valve stenosis: Stable, echo reported: Aortic valve is thickened and calcified. Doppler signal is inadequate to assess aortic stenosis. monitor for symptoms #BPH with obstruction/lower urinary tract symptoms: Patient on Wu's catheter, monitor for intake and output Home medication reviewed, hold tamsulosin since the patient blood pressure is on the softer side and required norepinephrine PDMP PDMP Reviewed: Not Reviewed Attestations 2 Medical Necessity Statement*: hd Coding Level of Care Code 11163 Diagnoses Dysphagia R13.10
[2025-09-23] MEDS: cefTRIAXone 1,000 mg SDV 1000 MG IVP (16:00)
[2025-09-23] MEDS: norepinephrine 4 MG/250 ML BAG 15 MG IV (17:46)
--- NOTE | 2025-09-23 18:02 | P.PN_ITS ---
Subjective 2 Subjective: Feeling better Had swallowed Plavix Medications: Reviewed: Yes Vitals/I&O/Wt Last Vital Signs Temp 98.4 F 09/23/25 14:00 Pulse 83 09/23/25 16:45 Resp 24 H 09/23/25 16:45 BP 101/67 09/23/25 16:30 Pulse Ox 95 09/23/25 16:45 O2 Del Method Nasal Cannula 09/23/25 07:55 O2 Flow Rate 2 09/23/25 07:55 FiO2 1 09/20/25 19:28 09/23/25 09/23/25 09/23/25 06:59 14:59 22:59 Intake Total 551.062 / 1218.625 255.375 / 255.375 305.25 / 560.625 Output Total 100 / 100 200 / 200 200 / 400 Balance 451.062 / 1118.625 55.375 / 55.375 105.25 / 160.625 Weight last 48 hrs Weight 204 lb 4.8 oz Physical Exam 2 Const: OTHER: GENERAL: Patient is alert, awake and oriented x3. HEART: Regular S1 and S2. No murmur, rub or gallop. LUNGS: Clear to auscultate bilaterally. CENTRAL NERVOUS SYSTEM: Grossly nonfocal. EXTREMITIES: Lower extremities with out edema bilaterally. Urinary Catheter Management: Wu: Cath Placed During This Visit: no Reason for Continuing Indwelling Catheter: Accurate Measurement of Urinary Output in Critically Ill Patients Data 09/23/25 03:29 09/23/25 03:29 Micro: Microbiology 09/17/25 13:31 Blood Culture - Final Blood NO GROWTH AFTER 5 DAYS 09/17/25 13:30 Blood Culture - Final Blood NO GROWTH AFTER 5 DAYS A&P Assessment and plan 1. ST elevation (STEMI) myocardial infarction: 2. Coronary artery disease involving sun'aq coronary artery of sun[place] heart without angina pectoris: 3. Essential hypertension: 4. Nonrheumatic aortic valve stenosis: 5. Heart failure with reduced ejection fraction: 6. Acute kidney injury: 7. Mitral valve regurgitation: Plan: Continue dual antiplatelet therapy, continue current management Hemodialysis as per nephrology PDMP PDMP Reviewed: Not Reviewed Attestations 2 Medical Necessity Statement*: Require continuation hospitalization as above Coding Level of Care Code Acute Code for [facility] Diagnoses ST elevation (STEMI) myocardial infarction I21.3 Coronary artery disease involving sun'aq coronary artery of sun[place] heart without angina pectoris I25.10 Coronary Disease-Associated Artery/Lesion type: sun'aq artery [place] vs. transplanted heart: sun'aq heart Associated angina: without angina Essential hypertension I10 Hypertension type: essential hypertension Nonrheumatic aortic valve stenosis I35.0 Cardiac valve disease etiology: nonrheumatic Heart failure with reduced ejection fraction I50.20 Acute kidney injury N17.9 Mitral valve regurgitation I34.0
[2025-09-23] MEDS: heparin, porcine 1,000 unit/mL INJ 10 mL 10000 UNIT HE (22:10)
[2025-09-24] VITALS (99 sets, daily range): BP systolic 81–133; BP diastolic 42–78; PULSE 75–106; RESP 12–42; TEMP 36.5–36.9; O2SAT 90–100
--- NOTE | 2025-09-24 00:27 | PC.NURSE ---
Addendum entered by Elayne Pitt RN 09/24/25 01:27: Correction: Dialysis nurse notified adobe developer. Original Note: Notified by dialysis nurse that dialysis treatment was unable to be ran due to issues with the dialysis line, dialysis nurse states it is not clotted but will not run. Dr. Elmore notified, dialysis nurse notified neurologist.
[2025-09-24] MEDS: nystatin 100,000 unit/mL UDC 5 mL 200000 UNIT PO ×3 (04:55→22:23)
[2025-09-24] MEDS: pantoprazole 40 mg SDV IVP (04:59)
[2025-09-24] MEDS: phenol oral Spray 177 mL 3 SPRAY MUCOUS MEM ×2 (07:11→16:57)
--- NOTE | 2025-09-24 07:23 | PC.NURSE ---
Report obtained from Elayne SANCHEZ- unable to due dialysis due to catheter not working on dialysis machine. Noted catheter exposed length now at 2 inches. Dressing dry and intact. Co-band head band around top of head just above ears to help support top heavy distal catheter ends.
[2025-09-24] MEDS: HYDROcodone-acetaminophen 7.5-325 mg Tablet 1 TAB PO ×2 (07:52→19:59)
--- NOTE | 2025-09-24 10:02 | P.PN_ITS ---
Subjective 2 Subjective: 85-year-old male with CHF who has been r eceiving dialysis through right IJ temporary dialysis catheter and was planned to have a dialysis catheter placement next week by Dr. Villela. His dialysis catheter has not been working for the last 48 hours, unable to dialysis yesterday. I was asked to evaluate him. Vitals/I&O/Wt Last Vital Signs Temp 98.4 F 09/24/25 05:10 Pulse 78 09/24/25 07:35 Resp 16 09/24/25 07:35 BP 110/59 09/24/25 07:15 Pulse Ox 95 09/24/25 07:35 O2 Del Method Nasal Cannula 09/24/25 07:35 O2 Flow Rate 2 09/24/25 07:35 FiO2 1 09/20/25 19:28 09/23/25 09/24/25 09/24/25 22:59 06:59 14:59 Intake Total 305.25 / 560.625 125.25 / 685.875 Output Total 200 / 400 300 / 700 Balance 105.25 / 160.625 -174.75 / -14.125 Physical Exam 2 Narrative: Patient appears to be stable no significant pain the catheter in the right neck is not working. Urinary Catheter Management: Wu: Cath Placed During This Visit: no Reason for Continuing Indwelling Catheter: Accurate Measurement of Urinary Output in Critically Ill Patients Data 09/23/25 03:29 09/23/25 03:29 A&P Assessment and plan 1. Acute kidney injury: 2. Severe sepsis: Plan: I evaluated the catheter in the right neck it was not not working I did not ultrasound appeared to be inside of the vein so I tentatively placed over the wire but even after replacement the drawback was extremely sluggish and inadequate for dialysis. With this findings I think the best option for this patient will be to proceed to the OR for a tunneled dialysis catheter placement, since he has not been able to receive dialysis in the last 48 hours I think we need to do this today rather than waiting for next week. Unfortunately another temporary dialysis catheter is not a good option as during initial insertion the provider had difficulty with placement in the groin and the right IJ vein has already been utilized giving's only the left IJ vein is a suitable target. He will use thi vein for temporary dialysis catheter there is likelihood that the vein will not be able to be used for the tunneled dialysis catheter. We will keep the patient n.p.o. starting now we will plan to proceed at 3 PM, I have discussed all risk benefits of the procedure with the patient family members I explained the risk of pneumothorax requiring surgical intervention to thoracostomy, possibility of injury to adjacent vessels and even the great vessels at the level of the heart. Risks of that. They do understand that the risk is increased because the patient is still heart failure and a small amount of pressors but they agreed to proceed. PDMP PDMP Reviewed: Not Reviewed Attestations 2 Medical Necessity Statement*: Per medical team Coding Level of Care Code Acute Code for Chg Fwd Diagnoses Acute kidney injury N17.9 Severe sepsis A41.9; R65.20
--- NOTE | 2025-09-24 10:20 | PC.NURSE ---
Dr. Recinos into reinsert right neck dialysis catheter- time out done prior to procedure. MD unable to get replaced catheter to flush / flow for dialysis. Catheter removed by md. Instructed on plan to place catheter in OR at approximately 3pm. Patient remains npo since 830am.
--- NOTE | 2025-09-24 11:23 | PC.NURSE ---
Call placed to Dr. Recinos re: medications due today prior to surgery, strict npo no medications, hold midrodrine and heparin subcutaneous dose prior to surgery.
--- NOTE | 2025-09-24 11:50 | P.PN_ITS ---
Subjective 2 Subjective: seen with family at bedside overnight temporary dialysis catheter moved surgery consulted Vitals/I&O/Wt Last Vital Signs Temp 98.4 F 09/24/25 05:10 Pulse 78 09/24/25 07:35 Resp 16 09/24/25 07:35 BP 110/59 09/24/25 07:15 Pulse Ox 95 09/24/25 07:35 O2 Del Method Nasal Cannula 09/24/25 07:35 O2 Flow Rate 2 09/24/25 07:35 FiO2 1 09/20/25 19:28 09/23/25 09/24/25 09/24/25 22:59 06:59 14:59 Intake Total 305.25 / 560.625 125.25 / 685.875 Output Total 200 / 400 300 / 700 Balance 105.25 / 160.625 -174.75 / -14.125 Physical Exam 2 Const: COMMON NORMALS: no acute distress and patient oriented x3 Resp: COMMON NORMALS: normal respiratory effort EFFORT & INSPECTION: Yes able to speak in complete sentences Cardio: COMMON NORMALS: regular rate and regular rhythm RATE: regular rate RHYTHM: regular rhythm GI: COMMON NORMALS: Normal to inspection, nondistended, normoactive bowel sounds present Neuro: COMMON NORMALS: patient oriented x3 Urinary Catheter Management: Wu: Cath Placed During This Visit: no Reason for Continuing Indwelling Catheter: Accurate Measurement of Urinary Output in Critically Ill Patients Data 09/23/25 03:29 09/23/25 03:29 A&P Assessment and plan 1. 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 - Telemetry monitoring - echo reported: 30-35% EF # Acute congestive heart failure: Flash pulmonary edema: proBNP around 50,000's Patient having signs and symptoms of acute congestive heart failure since he has reduced ejection fraction Cannot continue with Lasix since the patient is requiring norepinephrine and therefore hemodialysis was There were transaminitis high likely all secondary to congestive hepatomegaly, and postdialysis improving #Acute kidney injury: / ESRD worsening multifactorial considering contrast exposure, having pulm edema and therefore could be congestive kidneys? avoid fluids considering patient is having pulm edema Patient did not respond to Lasix HD per nephrology plan for tunnel cath when more stable added midodrine OR today for dialysis access # Nonrheumatic aortic valve stenosis: Stable, echo reported: Aortic valve is thickened and calcified. Doppler signal is inadequate to assess aortic stenosis. monitor for symptoms #BPH with obstruction/lower urinary tract symptoms: Patient on Wu's catheter, monitor for intake and output Home medication reviewed, hold tamsulosin since the patient blood pressure is on the softer side and required norepinephrine PDMP PDMP Reviewed: Not Reviewed Attestations 2 Medical Necessity Statement*: OR today Coding Level of Care Code Acute Code for Chg Fwd Diagnoses Dysphagia R13.10
[2025-09-24] MEDS: norepinephrine 4 MG/250 ML BAG 11.25 MG IV (12:23)
--- NOTE | 2025-09-24 13:28 | P.PN_ITS ---
Subjective 2 Subjective: Patient was unable to have hd yesterday or this am due to a malfunctioning catheter. He is complaining of fatigue. he is on Levophed 3mcg/min Medications: Reviewed: Yes Vitals/I&O/Wt Last Vital Signs Temp 98.2 F 09/24/25 08:30 Pulse 78 09/24/25 13:15 Resp 26 H 09/24/25 13:15 BP 105/65 09/24/25 13:15 Pulse Ox 96 09/24/25 13:15 O2 Del Method Nasal Cannula 09/24/25 08:30 O2 Flow Rate 2 09/24/25 08:30 FiO2 1 09/20/25 19:28 09/23/25 09/24/25 09/24/25 22:59 06:59 14:59 Intake Total 305.25 / 560.625 125.25 / 685.875 115.5 / 115.5 Output Total 200 / 400 300 / 700 Balance 105.25 / 160.625 -174.75 / -14.125 115.5 / 115.5 Physical Exam 2 Narrative: GEN: nad, alert, conversant HEAD: normocephalic, atraumatic EYES: eomi, anicteric sclera HEENT: mmm NECK: no jvd CV: rrr LUNGS: ctab ABD: soft, nt, nd EXT: +1 LE edema NEURO: grossly normal SKIN: no rash Urinary Catheter Management: Wu: Cath Placed During This Visit: no Reason for Continuing Indwelling Catheter: Accurate Measurement of Urinary Output in Critically Ill Patients Data 09/23/25 03:29 09/23/25 03:29 A&P Assessment and plan 1. Acute kidney injury: Plan: 1. Acute kidney injury- The etiology of his brandyn is likely multifactorial- cardiorenal syndrome, contrast nephropathy - He was initiated on HD started via temporary HD catheter due to worsening BRANDYN and Oliguria. he remains oliguric. He was unable to receive HD yesterday and this am. i will plan on HD today with uf as tolerated following tunneled catheter placement 2. Acute respiratory failure- improved. i will cont uf with hd 3. ST elevation MN- status post left heart cath and 5 stents placed 4. chronic systolic CHF ef 30-35%- i will cont uf with hd PDMP PDMP Reviewed: Not Reviewed Attestations 2 Medical Necessity Statement*: brandyn Time Spent in Patient Care: 25 minutes Coding Level of Care Code Acute Code for Chg Fwd Diagnoses Acute kidney injury N17.9
--- NOTE | 2025-09-24 14:12 | ANES.PREANE2 ---
Pre-Anesthetic Assessment Height/Weight: Height 5 ft 9 in Weight 204 lb 4.8 oz Temp Pulse Resp BP Pulse Ox O2 Del Method O2 Flow Rate 98.2 F 78 26 H 105/65 96 Nasal Cannula 2 09/24/25 08:30 09/24/25 13:15 09/24/25 13:15 09/24/25 13:15 09/24/25 13:15 09/24/25 08:30 09/24/25 08:30 FiO2 1 09/20/25 19:28 Operation Date: 09/16/25 08:00 Proposed Procedures p Cardiac Catheterization(Not Applicable) - Richar Dobbins M.D Operation Date: 09/24/25 15:10 Proposed Procedures p Insertion Central Venous Access Device Dialysis Catheter Insertion(Not Applicable) - Adonis Recinos MD Last intake: Intake Last Liquid Date 09/24/25 Last Liquid Time 08:30 Last Solid Date 09/24/25 Last Solid Time 08:30 Anesthetic Plan Other: Patient initially admitted 09/07/25 for acute CHF exacerbation and STEMI Patient had emergency cath procedure Severe multivessel CAD noted on cath. S/p 5 stents Repeat echo 09/20/2025 showing EF of 34% with diffuse hypokinesis of the anterior basal wall segments. PA pressure 35 Severe mitral regurg noted Patient currently needs dialysis, K+ 5.5 and has been rising over the last few days NA 128 Patient had been receiving dialysis through right IJ with temp line with plan of dialysis catheter placement next week. Dialysis catheter has not been working for the last 48 hours. Discussed with surgeon about placing another temporary line and he does not feel good about this. Plan for Medications/Allergies Home Medications ?Medication ?Instructions ?Recorded ?Confirmed ?Last Taken ?Type nitroglycerin 0.4 mg sublingual 0.4 mg sublingual Q5M PRN Chest 11/21/19 09/16/25 10/21/20 History tablet (Nitrostat) Pain 2 tabs omeprazole 20 mg capsule,delayed 20 mg PO BID PRN Acid Reflux 01/16/20 09/16/25 10/21/20 History release amlodipine 5 mg tablet 10 mg (2 x 5 mg) PO DAILY #14 tabs 01/07/22 09/16/25 Unknown Rx hydrocodone 7.5 mg-acetaminophen 1 tab PO Q8H PRN Pain 04/20/23 09/16/25 Unknown History 325 mg tablet furosemide 40 mg tablet 40 mg PO DAILY 12/29/24 09/16/25 Unknown History ketoconazole 2 % shampoo See Rx Instructions .Route .COMPLEX 09/16/25 09/16/25 Unknown History lisinopril 20 mg tablet 20 mg PO BID 09/16/25 09/16/25 Unknown History Allergies Allergy/AdvReac Type Severity Reaction Status Date / Time amoxicillin (From Augmentin) Allergy ALGY-Rash Verified 08/31/25 10:19 clavulanic acid (From Allergy ALGY-Rash Verified 08/31/25 10:19 Augmentin) clopidogrel (From Plavix) Allergy ALGY-Joint Verified 08/31/25 10:19 Pain Skmpnva-VUD-UbD Reductase Allergy ADV-Weaknes Verified 08/31/25 10:19 Inhibitor (Zjkzgib-Ner-Qxo s Reductase Inhibitor) sulfamethoxazole (From Allergy ALGY-Rash Verified 08/31/25 10:19 Bactrim) trimethoprim (From Bactrim) Allergy ALGY-Rash Verified 08/31/25 10:19 Current Medications Generic Name Dose Route Start Last Admin Trade Name Freq PRN Reason Stop Dose Admin Acetaminophen 650 mg 09/16/25 10:46 09/23/25 01:48 Acetaminophen 325 Mg Tablet PO 650 mg Q6H PRN Administration MILD PAIN Hydrocodone Bitart/Acetaminophen 1 tab 09/23/25 23:24 09/24/25 07:52 Hydrocodone-Acetaminophen 7.5-325 Mg Tablet PO 1 tab Q8H PRN Administration MODERATE PAIN Al Hydrox/Mg Hydrox/Simethicone 30 ml 09/16/25 14:30 09/24/25 13:02 Wazz-Hxl-Hljwexjbn-Hoda 30 Ml Udc PO Not Given Q4H LAURA Amiodarone HCl 400 mg 09/21/25 10:00 09/24/25 04:53 Amiodarone 200 Mg Tablet PO 400 mg BID LAURA Administration Aspirin 81 mg 09/21/25 10:00 09/24/25 04:54 Aspirin 81 Mg Ec Tablet PO 81 mg DAILY LAURA Administration Ceftriaxone Sodium 1,000 mg 09/17/25 11:15 09/23/25 16:00 Ceftriaxone 1,000 Mg Sdv IVP 1,000 mg Q24H LAURA Administration Protocol Clopidogrel Bisulfate 75 mg 09/23/25 05:00 09/24/25 04:53 Clopidogrel 75 Mg Tablet PO 75 mg DAILY [facility] Administration Lidocaine HCl 15 ml/ 0 ml 09/23/25 11:00 09/24/25 10:24 Diphenhydramine HCl 37.5 mg/ MUCOUS MEM Not Given Al Hydrox/Mg Hydrox/ TIDAC [facility] Simethicone 15 ml Docusate Sodium 100 mg 09/20/25 09:46 09/20/25 12:03 Docusate Sodium 100 Mg Capsule PO 100 mg DAILY PRN Administration CONSTIPATION Famotidine 20 mg 09/22/25 17:00 09/24/25 04:54 Famotidine 20 Mg Tablet PO 20 mg BID [facility] Administration Heparin Sodium (Porcine) 5,000 unit 09/17/25 10:00 09/24/25 10:23 Heparin 5,000 Unit/Ml Inj 1 Ml SUBCUT Not Given Q12H [facility] Norepinephrine Bitartrate 4 mg in 250 mls @ 0 mls/hr 09/16/25 11:00 09/24/25 12:23 Levophed IV 3 mcg/min .Q0M LAURA 11.25 mls/hr Protocol Administration Per Protocol Nitroglycerin/Dextrose 50 mg in 250 mls @ 0 mls/hr 09/16/25 14:45 09/17/25 12:33 Nitroglycerin Drip IV 0 mcg/min .Q0M LAURA 0 mls/hr Protocol Titration Per Protocol Metoclopramide HCl 5 mg 09/22/25 01:53 09/22/25 19:16 Metoclopramide 5 Mg/Ml Sdv 2 Ml IVP 5 mg Q6H PRN Administration NAUSEA AND VOMITING Midodrine 10 mg 09/21/25 13:00 09/24/25 11:22 Midodrine 5 Mg Tablet PO Not Given TID [facility] Nystatin 200,000 unit 09/22/25 23:00 09/24/25 10:24 Nystatin 100,000 Unit/Ml Udc 5 Ml PO Not Given QID [facility] Pantoprazole Sodium 40 mg 09/21/25 10:00 09/24/25 04:59 Pantoprazole 40 Mg Sdv IVP 40 mg DAILY LAURA Administration Phenol 3 spray 09/22/25 10:54 09/24/25 07:11 Phenol Oral [place] 177 Ml MUCOUS MEM 3 spray Q2H PRN Administration SORE THROAT Polyethylene Glycol 17 gm 09/20/25 09:46 09/24/25 04:59 Polyethylene Glycol 3350 Pkt 17 Gm PO Not Given DAILY LAURA Senna 17.2 mg 09/16/25 21:00 09/23/25 20:20 Sennosides 8.6 Mg Tablet PO Not Given BEDTIME LAURA Senna/Docusate Sodium 1 tab 09/21/25 17:00 09/24/25 04:59 Sennosides-Docusate Tablet PO Not Given BID [facility] PFSH Anesthesia Medical History (Updated 09/22/25 @ 19:46 by Donis Jaime MD) Aortic stenosis Bilateral hydrocele Elevated PSA BPH with obstruction/lower urinary tract symptoms Hypertension Coronary artery disease history of CABG x3, 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 Superficial thrombophlebitis DVT (deep venous thrombosis) Surgical History History of [place] fundoplication S/P TURP (status post transurethral resection of prostate) History of hernia repair Hx of CABG H/O angioplasty History of cholecystectomy H/O transurethral resection of prostate 03/2018 Family History Brother CAD (coronary artery disease) Father CAD (coronary artery disease) Hyperlipidemia Hypertension Mother Cancer Sister Cancer Diabetes Son Diabetes Denies family history of Clotting disorder Dementia Psychiatric illness Chronic kidney disease (CKD) Suicide Anesthesia complication Bleeding disorder Family history of premature coronary artery disease Stroke Social History Smoking and tobacco/nicotine status: unknown if used tobacco/nicotine Second hand smoke exposure: Yes Alcohol intake: current Substance/Drug Use: unknown Adopted: No Caregiver/support person: No Lives independently: No Household members: spouse Marital status: Current occupational status: retired Data Anesthesia 09/23/25 03:29 09/23/25 03:29 Short CBC 09/23/25 Range/Units 03:29 WBC 10.09 (3.29-11.43) 10^3/uL Hgb 9.60 L (11.27-16.99) g/dL Hct 29.1 L (37-53) % MCV 95.7 (82-101) fl Plt Count 199 (157-399) 10^3/cmm Neut % (Auto) 76.7 % Neut # (Auto) 7.74 H (1.8-7.7) 10^3/uL BMP 09/22/25 09/23/25 19:59 03:29 Sodium 131 L 128 L Potassium 5.1 5.5 H Chloride 94 L 91 L Carbon Dioxide 19 L 20 L BUN 84 H* 85 H* Creatinine 7.2 H* 7.2 H* Glucose 178 H 166 H Calcium 8.4 L 8.5 Liver Function 09/23/25 Range/Units 03:29 Total Bilirubin 0.4 (0.15-1.2) mg/dL AST 34 (0-40) U/L ALT 39 (0-41) U/L Alkaline Phosphatase 82 (40-130) U/L Albumin 3.8 (3.5-5.2) g/dL Cardiac Studies: Echocardiogram 09/20/25 Echocardiogram Ultrasound 11/27/20 Holter Monitor 12/19/19
--- NOTE | 2025-09-24 15:23 | PM.ACPR ---
Procedure/Consent Time out: Time Out Performed: Yes Consent: Consent for Procedure: Consent obtained from patient and Emergency procedure Additional Consent Information: Consent obtained by anesthesia team as procedure was started before my arrival Procedure Narrative: With the patient in a supine position after a timeout was conducted the left groin was prepped and draped in usual sterile fashion. Initially anesthesia team started the procedure and attempted cannulation of the left femoral vein while the wire was able to be threaded into the vein we were not able to identified with ultrasound, at this point I offer my assistance to continue with the procedure. I was able to identify the left femoral vein with ultrasound, an 18-gauge needle was used to cannulate the vein, the cannulation was difficult as the vein layed right behind the femoral artery. A wire was advanced into the vein and position was verified with ultrasound. A 0.5 cm incision was made in the skin, serial sizes of dilators were used to create a tract following the wire. I then advanced a dual-lumen 20 cm dialysis catheter over the wire into the vein, I then remove the wire leaving the catheter in place. The catheter was flushing well and growing well in both lumens with no flow to allow for dialysis. Catheter was fixed in place and tested again and was working fine. Biopatch and sterile dressing was applied. At the end of the procedure patient tolerated well remained in the ICU in stable condition Acute Procedures Epistaxis Control: Time out performed: Yes
--- NOTE | 2025-09-24 15:26 | P.MISC_ITS ---
Miscellaneous Note Purpose of Documentation: Update on patient care Note: Patient was planned for tunneled dialysis catheter this afternoon as he is right IJ dialysis catheter had to be removed as it was not longer working. I was contacted by anesthesia team, they stated that at this point 18 patient is a poor candidate for surgical intervention and would like to prevent the patient from getting surgery in this condition by placing a left femoral dialysis ca theter. As per my previous note right femoral access was unable to be achieved in the past and therefore I did not consider left femoral as a good target but after discussion with anesthesia team we have decided to give it a go. After discussion with the patient by anesthesia team they started the procedure to try to place a left femoral catheter, on my arrival to the hospital I agreed to take over and the left femoral catheter was placed without complications. Catheter flushing well and drawing and enough flow to be able to be used for dialysis. Patient diet can be restarted as no longer will be going to the OR. Patient will still require placement of 2 male dialysis catheter at some point during his admission, I will sign out this findings tomorrow to my colleague Dr. Villela for follow-up
--- NOTE | 2025-09-24 15:59 | P.PN_ITS ---
Subjective 2 Subjective: Restarted on Levophed Overall feeling better Dialysis catheter was not working therefore patient will be getting today's tunnel catheter Medications: Reviewed: Yes Vitals/I&O/Wt Last Vital Signs Temp 98.2 F 09/24/25 08:30 Pulse 79 09/24/25 14:30 Resp 22 H 09/24/25 14:30 BP 100/56 09/24/25 14:30 Pulse Ox 95 09/24/25 14:30 O2 Del Method Nasal Cannula 09/24/25 08:30 O2 Flow Rate 2 09/24/25 08:30 FiO2 1 09/20/25 19:28 09/24/25 09/24/25 09/24/25 06:59 14:59 22:59 Intake Total 125.25 / 685.875 115.5 / 115.5 Output Total 300 / 700 Balance -174.75 / -14.125 115.5 / 115.5 Physical Exam 2 Const: OTHER: GENERAL: Patient is alert, awake and oriented x3. HEART: Regular S1 and S2. No murmur, rub or gallop. LUNGS: Clear to auscultate bilaterally. CENTRAL NERVOUS SYSTEM: Grossly nonfocal. EXTREMITIES: Lower extremities with out edema bilaterally. Urinary Catheter Management: Wu: Cath Placed During This Visit: no Reason for Continuing Indwelling Catheter: Accurate Measurement of Urinary Output in Critically Ill Patients Data 09/23/25 03:29 09/23/25 03:29 A&P Assessment and plan 1. ST elevation (STEMI) myocardial infarction: 2. Coronary artery disease involving [place] coronary artery of [place] heart without angina pectoris: 3. Essential hypertension: 4. Nonrheumatic aortic valve stenosis: 5. Heart failure with reduced ejection fraction: 6. Acute kidney injury: 7. Mitral valve regurgitation: Plan: Continue current management including dual antiplatelet therapy Hemodialysis will be today Continue rest of medication PDMP PDMP Reviewed: Not Reviewed Attestations 2 Medical Necessity Statement*: Require continuation hospitalization for above defined care Coding Level of Care Code Acute Code for [facility] Fwd Diagnoses ST elevation (STEMI) myocardial infarction I21.3 Coronary artery disease involving [place] coronary artery of [place] heart without angina pectoris I25.10 Coronary Disease-Associated Artery/Lesion type: [place] artery [place] vs. transplanted heart: [place] heart Associated angina: without angina Essential hypertension I10 Hypertension type: essential hypertension Nonrheumatic aortic valve stenosis I35.0 Cardiac valve disease etiology: nonrheumatic Heart failure with reduced ejection fraction I50.20 Acute kidney injury N17.9 Mitral valve regurgitation I34.0
--- NOTE | 2025-09-24 16:15 | PC.HD ---
09/23/25 21:19 to 22:10 Attempted to do dialysis treatment but cath red port not drawing at all, blue port drawing sluggishly, both flush adequately, and when machine connected the arterial pressure immediately spiked, shutting off blood pump. Attempted repositioning patient, manipulating catheter, flushing cath ports, infusing albumin to expand volume, slowing blood pump, but flow inadequate for machine to run. Treatment terminated and Dr Ania bansal. [employer]INE[employer] messaging hospitalist to let him know catheter will need to be repositioned or replaced.
[2025-09-24] MEDS: heparin, porcine 1,000 unit/mL INJ 10 mL 10000 UNIT INTRACATH (16:41)
[2025-09-24] MEDS: cefTRIAXone 1,000 mg SDV 1000 MG IVP (16:53)
[2025-09-24] MEDS: sennosides-docusate Tablet 1 TAB PO (16:55)
[2025-09-24] MEDS: heparin 5,000 unit/mL INJ 1 mL 5000 UNIT SUBCUT (22:23)
[2025-09-25] VITALS (97 sets, daily range): BP systolic 85–137; BP diastolic 47–98; PULSE 66–78; RESP 13–38; TEMP 36.3–36.7; O2SAT 74–100
[2025-09-25] MEDS: phenol oral Spray 177 mL 3 SPRAY MUCOUS MEM (00:25)
[2025-09-25 04:02] LABS: Hematocrit 28.9 % (37-53); Hemoglobin 9.60 g/dL (11.27-16.99); Mean Corpuscular HGB Conc 33.2 g/dL (30-55); Mean Corpuscular Hemoglobin 31.6 pg (27-33); Mean Corpuscular Volume 95.1 fl (82-101); Nucleated Red Blood Cells % 0.6 %; Platelet Count 197 10^3/cmm (157-399); Red Blood Count 3.04 10^6/uL (3.85-5.65); White Blood Count 10.54 10^3/uL (3.29-11.43)
[2025-09-25] MEDS: pantoprazole 40 mg SDV IVP (04:08)
[2025-09-25] MEDS: nystatin 100,000 unit/mL UDC 5 mL 200000 UNIT PO (04:12)
[2025-09-25 04:27] LABS: Anion Gap 20.3 (5-19); Blood Urea Nitrogen 77 mg/dL (8-23); Calcium 8.5 mg/dL (8.5-10.5); Carbon Dioxide 22 mmol/L (22-29); Chloride 93 mmol/L (98-107); Glucose 171 mg/dL (65-115); Magnesium 2.6 mg/dL (1.7-2.3); Osmolality Calculated 297 mOsm/kg (285-295); Potassium 5.3 mmol/L (3.5-5.1); Sodium 130 mmol/L (136-145)
[2025-09-25] MEDS: HYDROcodone-acetaminophen 7.5-325 mg Tablet 1 TAB PO ×3 (04:33→19:24)
--- NOTE | 2025-09-25 08:47 | XR_ITS ---
WS: [id number] XR abdomen 1V* [id number] REASON FOR EXAM: Abdomina xray for contiunued GI upset and poor apetite FINDINGS: No free air or retroperitoneal air. Mild to moderate gaseous distention of segments of colon. Overall decreased colonic distention compared to 09/20/2025. No definite small bowel distention. Residual contrast in the urinary bladder and rectum. XR/XR abdomen 1V* [id number] IMPRESSION: Improved bowel gas pattern with no acute abnormality.
[2025-09-25 09:20] LABS: Lipase 73 U/L (13-60)
--- NOTE | 2025-09-25 10:21 | P.PN_ITS ---
Subjective 2 Subjective: Patient has no new complaints Medications: Reviewed: Yes Vitals/I&O/Wt Last Vital Signs Temp 98.0 F 09/25/25 04:21 Pulse 76 09/25/25 07:57 Resp 16 09/25/25 07:57 BP 87/60 09/25/25 06:45 Pulse Ox 94 09/25/25 07:57 O2 Del Method Nasal Cannula 09/25/25 07:57 O2 Flow Rate 2 09/25/25 07:57 FiO2 1 09/20/25 19:28 09/24/25 09/25/25 09/25/25 22:59 06:59 14:59 Intake Total 758.750 / 874.250 36.187 / 910.437 Output Total 2500 / 2500 200 / 2700 Balance -1741.250 / -1625.750 -163.813 / -1789.563 Weight last 48 hrs Weight 91.8 kg Physical Exam 2 Narrative: GEN: nad, alert, conversant HEAD: normocephalic, atraumatic EYES: eomi, anicteric sclera HEENT: mmm NECK: no jvd CV: rrr LUNGS: ctab ABD: soft, nt, nd EXT: +1 LE edema NEURO: grossly normal SKIN: no rash Urinary Catheter Management: Wu: Cath Placed During This Visit: no Reason for Continuing Indwelling Catheter: Accurate Measurement of Urinary Output in Critically Ill Patients Data 09/25/25 03:45 09/25/25 03:45 A&P Assessment and plan 1. Acute kidney injury: Plan: 1. Acute kidney injury- The etiology of his brandyn is likely multifactorial- cardiorenal syndrome, contrast nephropathy - He was initiated on HD started via temporary HD catheter due to worsening BRANDYN and Oliguria. he remains oliguric. He received HD yesterday via his tunneled hd catheter. i will plan on HD again tomorrow with uf as tolerated 2. Acute respiratory failure- improved. i will cont uf with hd 3. ST elevation WI- status post left heart cath and 5 stents placed 4. chronic systolic CHF ef 30-35%- i will cont uf with hd PDMP PDMP Reviewed: Not Reviewed Attestations 2 Medical Necessity Statement*: brandyn Time Spent in Patient Care: 25 minutes Coding Level of Care Code Acute Code for [facility] Diagnoses Acute kidney injury N17.9
[2025-09-25 10:22] LABS: Methemoglobin ABG 1.2 g/dL
[2025-09-25] MEDS: heparin 5,000 unit/mL INJ 1 mL 5000 UNIT SUBCUT ×2 (11:26→21:07)
--- NOTE | 2025-09-25 11:51 | P.PN_ITS ---
Subjective 2 Subjective: Over the weekend dialysis catheter was replaced. He had some oral pain. Noted that his thrush is better. He does have some complaints of discoloration of his tongue. Still has some discomfort. He had dialysis over the weekend. Blood pressure stable. He is sats are stable on room air off pressors Vitals/I&O/Wt Last Vital Signs Temp 97.4 F L 09/25/25 08:00 Pulse 71 09/25/25 10:15 Resp 21 H 09/25/25 10:15 BP 89/51 09/25/25 10:15 Pulse Ox 98 09/25/25 10:15 O2 Del Method Room Air 09/25/25 08:00 O2 Flow Rate 2 09/25/25 07:57 FiO2 1 09/20/25 19:28 09/24/25 09/25/25 09/25/25 22:59 06:59 14:59 Intake Total 758.750 / 874.250 36.187 / 910.437 240 / 240 Output Total 2500 / 2500 200 / 2700 75 / 75 Balance -1741.250 / -1625.750 -163.813 / -1789.563 165 / 165 Weight last 48 hrs Weight 91.8 kg Physical Exam 2 Const: COMMON NORMALS: no acute distress and patient oriented x3 HENMT: OTHER: Tongue noted to be slightly blue-tinged on the anterior area otherwise stable mild tenderness Resp: COMMON NORMALS: normal respiratory effort EFFORT & INSPECTION: Yes able to speak in complete sentences Cardio: COMMON NORMALS: regular rate and regular rhythm RATE: regular rate RHYTHM: regular rhythm GI: COMMON NORMALS: Normal to inspection, nondistended, normoactive bowel sounds present Neuro: COMMON NORMALS: patient oriented x3 Urinary Catheter Management: Wu: Cath Placed During This Visit: no Reason for Continuing Indwelling Catheter: Accurate Measurement of Urinary Output in Critically Ill Patients Data 09/25/25 03:45 09/25/25 03:45 A&P Assessment and plan 1. 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 - Telemetry monitoring - echo reported: 30-35% EF # Acute congestive heart failure: Flash pulmonary edema: proBNP around 50,000's Patient having signs and symptoms of acute congestive heart failure since he has reduced ejection fraction Cannot continue with Lasix since the patient is requiring norepinephrine and therefore hemodialysis was There were transaminitis high likely all secondary to congestive hepatomegaly, and postdialysis improving #Acute kidney injury: / ESRD appreciate renal recs, HD tunnel cath planned [place] # Nonrheumatic aortic valve stenosis: Stable, echo reported: Aortic valve is thickened and calcified. Doppler signal is inadequate to assess aortic stenosis. monitor for symptoms #BPH with obstruction/lower urinary tract symptoms: Patient on Wu's catheter, monitor for intake and output PDMP PDMP Reviewed: Not Reviewed Attestations 2 Medical Necessity Statement*: diuresis, bp monitoring Coding Level of Care Code 93548 Diagnoses Dysphagia R13.10
--- NOTE | 2025-09-25 13:49 | P.PN_ITS ---
<Statement entered by Esha Orellana MD - 09/25/25 19:06> Patient was evaluated and cared for in conjunction with an advanced practice practitioner. I personally examined the patient and reviewed the chart and all pertinent data including imaging, telemetry, and laboratory results. I discussed the patient in detail with the advanced practice practitioner. Please see their note for complete H&P testing result and agreed upon plan of care for the patient. Subjective 2 Subjective: Patient off of Levo. BP stil soft. Still complaining of throat pain but is taking Plavix and aspirin. Getting treated for thrush. Did get dialysis yesterday and tolerating it well. Vitals/I&O/Wt Last Vital Signs Temp 97.4 F L 09/25/25 08:00 Pulse 71 09/25/25 10:15 Resp 21 H 09/25/25 10:15 BP 89/51 09/25/25 10:15 Pulse Ox 98 09/25/25 10:15 O2 Del Method Room Air 09/25/25 08:00 O2 Flow Rate 2 09/25/25 07:57 FiO2 1 09/20/25 19:28 09/24/25 09/25/25 09/25/25 22:59 06:59 14:59 Intake Total 758.750 / 874.250 36.187 / 910.437 240 / 240 Output Total 2500 / 2500 200 / 2700 75 / 75 Balance -1741.250 / -1625.750 -163.813 / -1789.563 165 / 165 Weight last 48 hrs Weight 202 lb 6.15 oz Physical Exam 2 Narrative: General: No apparent distress HENMT: normoceophalic Muskuloskeletal: Full ROM Respiratory: Normal respiratory effort, clear on the left but right lower anterior lobe diminished, no use of accessory muscles Cardio: No JVD, regular rate, regular rhythm, S1 S2 normal, no murmurs, peripheral pulses 2+ radial palpated bilaterally GI: Normal to inspection, nondistended Extremities: Full ROM, normal, normal capillary refill, no cyanosis or edema Neuro: Alert and oriented x4 Psych: Affect normal, denies suicidal ideation, mental status grossly normal Skin: Right groin slight bruising w/o evidence of hematoma, soft Urinary Catheter Management: Wu: Cath Placed During This Visit: no Reason for Continuing Indwelling Catheter: Accurate Measurement of Urinary Output in Critically Ill Patients Data 09/25/25 03:45 09/25/25 03:45 A&P Assessment and plan 1. ST elevation (STEMI) myocardial infarction: 2. Coronary artery disease involving l[place] coronary artery of l[place] heart without angina pectoris: 3. Essential hypertension: 4. Nonrheumatic aortic valve stenosis: 5. Heart failure with reduced ejection fraction: 6. Acute kidney injury: 7. Mitral valve regurgitation: Plan: Continue current management including dual antiplatelet therapy aspirin and plavix. Denies cp or shortness of breath. Appears euvolemic on exam. Awaiting permanent hemodialysis catheter. Appreciate nephrology assistance. Will decrease amio to 400 mg daily. Continue midodrine 10 mg TID. PDMP PDMP Reviewed: Not Reviewed Attestations 2 Medical Necessity Statement*: Stay expected to cross 2 midnignts due to STEMI and BRANDYN requiring dialysis and pressors. Coding Level of Care Code Acute Code for [facility] Diagnoses ST elevation (STEMI) myocardial infarction I21.3 Coronary artery disease involving lytton coronary artery of l[place] heart without angina pectoris I25.10 Associated angina: without angina Coronary Disease-Associated Artery/Lesion type: l[place]ton artery [place] vs. transplanted heart: lytton heart Essential hypertension I10 Hypertension type: essential hypertension Nonrheumatic aortic valve stenosis I35.0 Cardiac valve disease etiology: nonrheumatic Heart failure with reduced ejection fraction I50.20 Acute kidney injury N17.9 Mitral valve regurgitation I34.0
[2025-09-25] MEDS: cefTRIAXone 1,000 mg SDV 1000 MG IVP (15:17)
--- NOTE | 2025-09-25 17:36 | PC.NURSE ---
Medication refusal: Patient has refused maloox, nystatin, famotadine, senna, and GI cocktail. NUrse explained the benefits to receiving these medications and the effects of not taking them. patient voiced understanding but still refuses. He states that he is sick of taking so many medications, and just wants a break. Indicated he would be open to taking them in the future if he can just get a break from them. Patient also believes that since he is taking so many oral medications that it may be the cause of his nausea/gi upset.
--- NOTE | 2025-09-25 18:29 | PC.NURSE ---
Shift SUmmary: Activity: Up to a chair for the whole shift. worked with physical therapy. Walked a total of approximately 30 feet with pt. Still weak, but improvement compared to previous days. Levophed: MAPs were mostly 65 or slightly greater, but intermittently 64. Restarted levophed and kept at low rate to prevent this intermittent lack of kidney perfusion. patient has refused some medications today due to GI distress. Is open to trying again tommorow. Change PPI from protnix and pepcid to his home omeprazole medication. Pharmacy label made. Medication in patient pharmacy bin. Oral intake: 650 mL urine output: 225 mL
[2025-09-25] MEDS: norepinephrine 4 MG/250 ML BAG 7.5 MG IV (19:25)
[2025-09-26] VITALS (96 sets, daily range): BP systolic 88–129; BP diastolic 47–81; PULSE 69–102; RESP 15–30; TEMP 36.4–36.8; O2SAT 70–100
[2025-09-26] MEDS: HYDROcodone-acetaminophen 7.5-325 mg Tablet 1 TAB PO ×2 (03:43→13:49)
[2025-09-26] MEDS: metoclopramide 5 mg/mL SDV 2 mL IVP ×2 (05:17→21:57)
--- NOTE | 2025-09-26 05:37 | PC.NURSE ---
Addendum entered by Yuliana Patel RN 09/26/25 05:44: Patient able to take 1 amiodarone tablet. MAR updated to reflect this. Original Note: Patient developed nausea and retching when attempting to take morning PO medications. Gave patient a dose of reglan, told him we would let the reglan have time to work and try to take PO meds later. Patient put call light on and stated that he was still nauseous and could not continue taking PO medications. Patient swallowed 5 out of 10 mg of midodrine. See MAR. Unable to take omeprazole and amiodarone. Patient stated that he thinks he would feel less nauseous if he could take his morning medications after eating something. Patient has been so far unable to keep a substantial meal down due to nausea. Told patient that it would be passed on to day team to possibly re-time medications to help limit nausea.
[2025-09-26 07:48] LABS: Anion Gap 25.4 (5-19); Calcium 8.6 mg/dL (8.5-10.5); Carbon Dioxide 17 mmol/L (22-29); Chloride 90 mmol/L (98-107); Glucose 150 mg/dL (65-115); Osmolality Calculated 294 mOsm/kg (285-295); Potassium 5.4 mmol/L (3.5-5.1); Sodium 127 mmol/L (136-145)
[2025-09-26 07:51] LABS: Blood Urea Nitrogen 88 mg/dL (8-23); Troponin T (5th) Once 9471 ng/L (0-15)
--- NOTE | 2025-09-26 09:21 | P.PN_ITS ---
Subjective 2 Subjective: Patient seen and examined. Patient still remains on low-dose Levophed. Patient complains of pain in mouth by thrush. Still has edema patient last had dialysis on Thursday. Breathing is improving. Remains in heart block. Medications: Reviewed: Yes Medication Review Details: Current Medications Acetaminophen (Acetaminophen 325 Mg Tablet) 650 mg PO Q6H PRN PRN Reason: MILD PAIN Last Admin: 09/23/25 01:48 Dose: 650 mg Hydrocodone Bitart/Acetaminophen (Hydrocodone-Acetaminophen 7.5-325 Mg Tablet) 1 tab PO Q8H PRN PRN Reason: MODERATE PAIN Last Admin: 09/26/25 03:43 Dose: 1 tab Al Hydrox/Mg Hydrox/Simethicone (Txts-Ieh-Gwxqwoehh-Hoda 30 Ml Udc) 30 ml PO Q15M PRN PRN Reason: INDIGESTION Al Hydrox/Mg Hydrox/Simethicone (Wsql-Tlp-Eblbzdoiu-Hoda 30 Ml Udc) 30 ml PO Q4H [facility] Last Admin: 09/26/25 05:36 Dose: Not Given Alteplase, Recombinant (Alteplase 1 Mg/Ml Sdv 2 Ml) 2 mg INTRACATH PRN PRN PRN Reason: DIALYSIS USE ONLY Amiodarone HCl (Amiodarone 200 Mg Tablet) 400 mg PO DAILY [facility] Last Admin: 09/26/25 05:45 Dose: 400 mg Aspirin (Aspirin 81 Mg Ec Tablet) 81 mg PO DAILY [facility] Last Admin: 09/26/25 05:05 Dose: 81 mg Atropine Sulfate (Atropine 1 Mg/Ml Sdv 1 Ml) 0.5 mg IVP PRN PRN PRN Reason: Symptomatic bradycardia Budesonide (Budesonide 0.5 Mg/2 Ml Neb) 0.5 mg INHALATION BID.RESPIRATORY PRN PRN Reason: SHORTNESS OF BREATH Ceftriaxone Sodium (Ceftriaxone 1,000 Mg Sdv) 1,000 mg IVP Q24H [facility]; Protocol Last Admin: 09/25/25 15:17 Dose: 1,000 mg Clopidogrel Bisulfate (Clopidogrel 75 Mg Tablet) 75 mg PO DAILY [facility] Last Admin: 09/26/25 05:05 Dose: 75 mg Docusate Sodium (Docusate Sodium 100 Mg Capsule) 100 mg PO DAILY PRN PRN Reason: CONSTIPATION Last Admin: 09/20/25 12:03 Dose: 100 mg Heparin Sodium (Porcine) (Heparin 5,000 Unit/Ml Inj 1 Ml) 5,000 unit SUBCUT Q12H [facility] Last Admin: 09/25/25 21:07 Dose: 5,000 unit Norepinephrine Bitartrate (Levophed) 4 mg in 250 mls @ 0 mls/hr IV .Q0M [facility]; Protocol Last Admin: 09/25/25 19:25 Dose: 2 mcg/min, 7.5 mls/hr Nitroglycerin/Dextrose (Nitroglycerin Drip) 50 mg in 250 mls @ 0 mls/hr IV .Q0M [facility]; Protocol Last Titration: 09/17/25 12:33 Dose: 0 mcg/min, 0 mls/hr Sodium Chloride (Sodium Chloride 0.9%) 1,000 mls @ 0 mls/hr IV .Q0M PRN PRN Reason: hypotension or symptomatic Albumin Human (Albumin) 12.5 gm in 50 mls @ 60 mls/hr IV PRN PRN PRN Reason: Hypotension and/or symptomatic Sodium Chloride (Sodium Chloride 0.9%) 1,000 mls @ 0 mls/hr IV .Q0M PRN PRN Reason: hypotension or symptomatic Ipratropium [place] (Ipratropium 0.5 Mg/2.5 Ml Neb) 0.5 mg INHALATION Q6H.RESP PRN PRN Reason: SHORTNESS OF BREATH Levalbuterol HCl (Levalbuterol 1.25 Mg/3 Ml Neb) 1.25 mg INHALATION Q6H.RESP PRN PRN Reason: SHORTNESS OF BREATH Magnesium Hydroxide (Magnesium Hydroxide 30 Ml Udc) 30 ml PO DAILY PRN PRN Reason: CONSTIPATION Metoclopramide HCl (Metoclopramide 5 Mg/Ml Sdv 2 Ml) 5 mg IVP Q6H PRN PRN Reason: NAUSEA AND VOMITING Last Admin: 09/26/25 05:17 Dose: 5 mg Midodrine (Midodrine 5 Mg Tablet) 10 mg PO TID [facility] Last Admin: 09/26/25 05:35 Dose: 10 mg Naloxone HCl (Naloxone 0.4 Mg/Ml Sdv) 0.1 mg IVP Q2M PRN PRN Reason: RESPIRATORY RATE < 8/MIN Nitroglycerin (Nitroglycerin 0.4 Mg Sublingual Tablet) 0.4 mg SUBLINGUAL Q5M PRN PRN Reason: CHEST PAIN Non-Formulary Medication ( Omeprazole 20 Mg Caps) 20 each PO BID [facility] Last Admin: 09/26/25 05:36 Dose: Not Given Nystatin (Nystatin 100,000 Unit/Ml Udc 5 Ml) 200,000 unit PO QID [facility] Last Admin: 09/26/25 04:00 Dose: Not Given Phenol (Phenol Oral [place] 177 Ml) 3 spray MUCOUS MEM Q2H PRN PRN Reason: SORE THROAT Last Admin: 09/25/25 00:25 Dose: 3 spray Polyethylene Glycol (Polyethylene Glycol 3350 Pkt 17 Gm) 17 gm PO DAILY [facility] Last Admin: 09/26/25 04:00 Dose: Not Given Senna (Sennosides 8.6 Mg Tablet) 17.2 mg PO BEDTIME [facility] Last Admin: 09/25/25 21:06 Dose: 17.2 mg Senna/Docusate Sodium (Sennosides-Docusate Tablet) 1 tab PO BID [facility] Last Admin: 09/26/25 04:00 Dose: Not Given Vitals/I&O/Wt Last Vital Signs Temp 97.4 F L 09/25/25 16:30 Pulse 75 09/26/25 08:15 Resp 19 H 09/26/25 08:15 BP 96/50 09/26/25 08:15 Pulse Ox 94 09/26/25 06:45 O2 Del Method Room Air 09/26/25 08:15 O2 Flow Rate 2 09/25/25 07:57 FiO2 1 09/20/25 19:28 09/25/25 09/26/25 09/26/25 22:59 06:59 14:59 Intake Total 955.063 / 3655.808 2018 / 2995.063 Output Total 250 / 325 Balance 955.063 / 7474.742 5182 / 2670.063 Weight last 48 hrs Weight 91.8 kg Physical Exam 2 Narrative: Blood pressure is low Vital signs noted. HEENT normocephalic atraumatic comfortable in bed no shortness of breath. Neck is supple lungs have good air movement hearts regular abdomen is soft positive bowel sounds extremities have 2+ edema through the calves. Patient has a left femoral dialysis catheter neuro awake alert oriented x 3 Urinary Catheter Management: Wu: Cath Placed During This Visit: no Reason for Continuing Indwelling Catheter: Accurate Measurement of Urinary Output in Critically Ill Patients Data 09/25/25 03:45 09/26/25 07:11 A&P Assessment and plan 1. Acute kidney injury: 85-year-old man with ST elevation [place] mitral regurgitation aortic valve stenosis heart failure reduced EF status post cardiac catheterization with multiple stents. 1. Acute kidney injury differential diagnosis includes ATN, cardiorenal syndrome with some contrast-induced BRANDYN. At this time patient remains dialysis dependent however he is starting to urinate. Will dialyze today for 3 hours to attempt to remove 1 L on a 2K bath. If blood pressure cannot handle dialysis then would discuss with cardiology if there is any medication or procedure that can be done to help with his heart failure reduced EF and severe mitral regurgitation along with thickened aortic valve with question of aortic stenosis. 2. Anemia monitor hemoglobin, if hemoglobin decreases under 9 then consider initiation of epogen 3. Hyponatremia monitor with dialysis 4. Hyperkalemia metabolic acidosis uremia hopefully should improve with dialysis. 5. Add phosphorus binder Patient seen and examined using audiovisual equipment with the aid of a nurse patient consented to hemodialysis and to telehealth. Plan: Dialysis today ,see above PDMP PDMP Reviewed: Not Reviewed Attestations 2 Medical Necessity Statement*: Coronary artery disease, volume overload , acute kidney injury Time Spent in Patient Care: Greater than 35 minutes (>than 50% of time spent in counselling and/or direct pt care on unit) . Coding Level of Care Code Acute Code for [facility] Diagnoses Acute kidney injury N17.9
[2025-09-26] MEDS: nystatin 100,000 unit/mL UDC 5 mL 200000 UNIT PO ×2 (10:14→17:34)
[2025-09-26] MEDS: heparin 5,000 unit/mL INJ 1 mL 5000 UNIT SUBCUT ×2 (10:16→22:06)
--- NOTE | 2025-09-26 11:29 | PC.OT ---
OT TREATMENT ATTEMPTED. PATIENT HAD VISITORS IN ROOM AND REQUEST P.M. TREATMENT.
--- NOTE | 2025-09-26 12:47 | PC.OT ---
OT TREATMENT ATTEMPTED IN P.M. PATIENT REPORTS THAT HE IS TOO TIRED AND DOES NOT FEEL WELL ENOUGH TO PERFORM SKILLED OT THIS AFTERNOON. NURSING INFORMED
--- NOTE | 2025-09-26 13:16 | P.PN_ITS ---
Subjective 2 Subjective: afebrile denies chest pain on levophed tongue less pain Vitals/I&O/Wt Last Vital Signs Temp 97.4 F L 09/25/25 16:30 Pulse 75 09/26/25 10:26 Resp 16 09/26/25 10:26 BP 96/50 09/26/25 08:15 Pulse Ox 94 09/26/25 10:26 O2 Del Method Room Air 09/26/25 10:26 O2 Flow Rate 2 09/25/25 07:57 FiO2 1 09/20/25 19:28 09/25/25 09/26/25 09/26/25 22:59 06:59 14:59 Intake Total 955.063 / 7435.832 3005 / 2995.063 Output Total 250 / 325 Balance 955.063 / 9939.150 2237 / 2670.063 Weight last 48 hrs Weight 91.8 kg Physical Exam 2 Const: COMMON NORMALS: no acute distress and patient oriented x3 HENMT: OTHER: stable mild tenderness Resp: COMMON NORMALS: normal respiratory effort EFFORT & INSPECTION: Yes able to speak in complete sentences Cardio: COMMON NORMALS: regular rate and regular rhythm RATE: regular rate RHYTHM: regular rhythm GI: COMMON NORMALS: Normal to inspection, nondistended, normoactive bowel sounds present Neuro: COMMON NORMALS: patient oriented x3 Urinary Catheter Management: Wu: Cath Placed During This Visit: no Reason for Continuing Indwelling Catheter: Accurate Measurement of Urinary Output in Critically Ill Patients Data 09/25/25 03:45 09/26/25 07:11 A&P Assessment and plan 1. Dysphagia: Plan: # Severe sepsis: Patient meets the criteria for severe sepsis Avoid aggressive fluid due to flash pulmonary edema Blood cultures and urine cultures cx negative to date Continue ceftriaxone and azithromycin levophed prn Oxygen therapy as per protocol to maintain oxygen sats above 92% consult critical care #dysphagia #possible paraesophageal hiatal hernia --completed barium swallow --added nystatin , magic mouthwash, chlroseptic spray --?check methemoglobenemia level --monitor tongue tenderness, this is better, . 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 - Telemetry monitoring - echo reported: 30-35% EF # Acute congestive heart failure: Flash pulmonary edema: proBNP around 50,000's Patient having signs and symptoms of acute congestive heart failure since he has reduced ejection fraction Cannot continue with Lasix since the patient is requiring norepinephrine and therefore hemodialysis was There were transaminitis high likely all secondary to congestive hepatomegaly, and postdialysis improving #Acute kidney injury: / ESRD appreciate renal recs, HD tunnel cath planned at [place] # Nonrheumatic aortic valve stenosis: Stable, echo reported: Aortic valve is thickened and calcified. Doppler signal is inadequate to assess aortic stenosis. monitor for symptoms #BPH with obstruction/lower urinary tract symptoms: Patient on Wu's catheter, monitor for intake and output PDMP PDMP Reviewed: Not Reviewed Attestations 2 Medical Necessity Statement*: abx, diuresis Coding Level of Care Code 11559 Diagnoses Dysphagia R13.10
--- NOTE | 2025-09-26 14:26 | P.PN_ITS ---
<Statement entered by Esha Orellana MD - 09/26/25 16:14> Patient was evaluated and cared for in conjunction with an advanced practice practitioner. I personally examined the patient and reviewed the chart and all pertinent data including imaging, telemetry, and laboratory results. I discussed the patient in detail with the advanced practice practitioner. Please see their note for complete H&P testing result and agreed upon plan of care for the patient. Patient denies any complaint lungs are clear however he remains hypotensive requiring Levophed, he cannot tolerate guideline medical therapy for heart failure because of low blood pressure. 1. ST elevation (STEMI) myocardial infarction: 2. Coronary artery disease involving [place] coronary artery of [place] heart without angina pectoris: 3. Essential hypertension: 4. Nonrheumatic aortic valve stenosis: 5. Heart failure with reduced ejection fraction: 6. Acute kidney injury: 7. 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 Lungs are clear. Appears euvolemic. Still requiring levophed. Denies chest pain. Taking his oral medications appropriately. Vitals/I&O/Wt Last Vital Signs Temp 98.2 F 09/26/25 12:00 Pulse 73 09/26/25 14:15 Resp 29 H 09/26/25 14:15 BP 103/62 09/26/25 14:15 Pulse Ox 92 09/26/25 13:45 O2 Del Method Room Air 09/26/25 13:45 O2 Flow Rate 2 09/25/25 07:57 FiO2 1 09/20/25 19:28 09/25/25 09/26/25 09/26/25 22:59 06:59 14:59 Intake Total 955.063 / 0685.202 0149 / 2995.063 550 / 550 Output Total 250 / 325 Balance 955.063 / 4114.405 0135 / 2670.063 550 / 550 Weight last 48 hrs Weight 202 lb 6.15 oz Physical Exam 2 Narrative: General: No apparent distress HENMT: normoceophalic Muskuloskeletal: Full ROM Respiratory: Normal respiratory effort, clear on the left but right lower anterior lobe diminished, no use of accessory muscles Cardio: No JVD, regular rate, regular rhythm, S1 S2 normal, no murmurs, peripheral pulses 2+ radial palpated bilaterally GI: Normal to inspection, nondistended Extremities: Full ROM, normal, normal capillary refill, no cyanosis or edema Neuro: Alert and oriented x4 Psych: Affect normal, denies suicidal ideation, mental status grossly normal Skin: Right groin slight bruising w/o evidence of hematoma, soft Urinary Catheter Management: Wu: Cath Placed During This Visit: no Reason for Continuing Indwelling Catheter: Accurate Measurement of Urinary Output in Critically Ill Patients Data 09/25/25 03:45 09/26/25 07:11 A&P Assessment and plan 1. ST elevation (STEMI) myocardial infarction: 2. Coronary artery disease involving [place] coronary artery of [place] heart without angina pectoris: 3. Essential hypertension: 4. Nonrheumatic aortic valve stenosis: 5. Heart failure with reduced ejection fraction: 6. Acute kidney injury: 7. Mitral valve regurgitation: Plan: Continue current management including dual antiplatelet therapy aspirin and plavix. Denies cp or shortness of breath. Appears euvolemic on exam. Awaiting permanent hemodialysis catheter. Appreciate nephrology assistance. Will continue amiodarone 400 mg daily. Continue midodrine 10 mg TID. Wean levophed as tolerated. Patient has wide complex qrs. May need CRTD at some point. PDMP PDMP Reviewed: Not Reviewed Attestations 2 Medical Necessity Statement*: Stay expected to cross 2 midnignts due to STEMI and BRANDYN requiring dialysis and pressors. Coding Level of Care Code Acute Code for [facility] Diagnoses ST elevation (STEMI) myocardial infarction I21.3 Coronary artery disease involving [place] coronary artery of [place] heart without angina pectoris I25.10 Associated angina: without angina Coronary Disease-Associated Artery/Lesion type: [place] artery [place] vs. transplanted heart: [place] heart Essential hypertension I10 Hypertension type: essential hypertension Nonrheumatic aortic valve stenosis I35.0 Cardiac valve disease etiology: nonrheumatic Heart failure with reduced ejection fraction I50.20 Acute kidney injury N17.9 Mitral valve regurgitation I34.0
[2025-09-26] MEDS: cefTRIAXone 1,000 mg SDV 1000 MG IVP (14:58)
--- NOTE | 2025-09-26 22:06 | PC.NURSE ---
Attempted to administer evening PO medications to patient. Patient stated that he could not take PO renvela due to inability to swallow. Cut pill into quarters for patient. Patient took PO midodrine and 1/4 of renvela tablet and then became nauseous and had a small episode of emesis. Administered reglan to patient. Patient told this nurse to crush renvela and he would try to eat it in applesauce. Crushed renvela and omeprazole in applesauce. Patient stated, That's not fine enough. There can't be any lumps. Told patient that the pills were crushed as fine as they could be. Patient then stated that he did not want omeprazole crushed after already taking a capsule and opening it from patient's home medications. Applesauce with pills crushed was disposed of. Took another omeprazole capsule from patient's home medications. Got new applesauce and pulled another renvela tablet. Upon arriving back in room, patient took omeprazole and then stated, No, I'm refusing that one (referring to renvela). Patient had been previously educated by this nurse on the importance of renvela due to his receiving dialysis. Patient continued to refuse. Patient stated, You don't know how I feel. My throat hurts and I can't swallow and you guys just keep pushing medicines on me. I can't do it. Patient is able to swallow liquids such as water and juice with minimal problem. Administered medications as seen in MAR. Patient now resting comfortably in bed.
[2025-09-27] VITALS (67 sets, daily range): BP systolic 87–134; BP diastolic 36–113; PULSE 61–83; RESP 12–31; TEMP 36.3–36.4; O2SAT 75–98
[2025-09-27] MEDS: nystatin 100,000 unit/mL UDC 5 mL 200000 UNIT PO ×5 (01:59→22:20)
[2025-09-27] MEDS: HYDROcodone-acetaminophen 7.5-325 mg Tablet 1 TAB PO ×2 (02:11→12:25)
[2025-09-27] MEDS: metoclopramide 5 mg/mL SDV 2 mL IVP (05:14)
[2025-09-27] MEDS: morphine 4 mg/mL SDV 1 mL IVP ×2 (06:27→21:46)
[2025-09-27 06:44] LABS: Alanine Aminotransferase 178 U/L (0-41); Albumin Level 3.6 g/dL (3.5-5.2); Alkaline Phosphatase 335 U/L (40-130); Anion Gap 19.8 (5-19); Aspartate Amino Transferase 123 U/L (0-40); Blood Urea Nitrogen 68 mg/dL (8-23); Calcium 8.0 mg/dL (8.5-10.5); Carbon Dioxide 21 mmol/L (22-29); Chloride 95 mmol/L (98-107); Globulin 2.2 g/dL (1.3-4.6); Glucose 155 mg/dL (65-115); Magnesium 2.3 mg/dL (1.7-2.3); Osmolality Calculated 295 mOsm/kg (285-295); Potassium 4.8 mmol/L (3.5-5.1); Sodium 131 mmol/L (136-145); Total Protein 5.8 g/dL (6.6-8.7)
--- NOTE | 2025-09-27 07:48 | PM.PN ---
Subjective Subjective: Patient complains of weakness lethargy said that he has been in the hospital this long denies shortness of breath poor appetite. Decreased edema. No headaches. blood pressure on low side Medications: Reviewed: Yes Medication Review Details: Current Medications Acetaminophen (Acetaminophen 325 Mg Tablet) 650 mg PO Q6H PRN PRN Reason: MILD PAIN Last Admin: 09/23/25 01:48 Dose: 650 mg Hydrocodone Bitart/Acetaminophen (Hydrocodone-Acetaminophen 7.5-325 Mg Tablet) 1 tab PO Q8H PRN PRN Reason: MODERATE PAIN Last Admin: 09/27/25 02:11 Dose: 1 tab Al Hydrox/Mg Hydrox/Simethicone (Lxic-Hmr-Iruxwqgye-Hoda 30 Ml Udc) 30 ml PO Q15M PRN PRN Reason: INDIGESTION Al Hydrox/Mg Hydrox/Simethicone (Kuxi-Iau-Knupzmwzl-Hoda 30 Ml Udc) 30 ml PO Q4H [facility] Last Admin: 09/27/25 04:38 Dose: Not Given Alteplase, Recombinant (Alteplase 1 Mg/Ml Sdv 2 Ml) 2 mg INTRACATH PRN PRN PRN Reason: DIALYSIS USE ONLY Amiodarone HCl (Amiodarone 200 Mg Tablet) 400 mg PO DAILY [facility] Last Admin: 09/27/25 05:55 Dose: 400 mg Aspirin (Aspirin 81 Mg Ec Tablet) 81 mg PO DAILY [facility] Last Admin: 09/27/25 05:52 Dose: 81 mg Atropine Sulfate (Atropine 1 Mg/Ml Sdv 1 Ml) 0.5 mg IVP PRN PRN PRN Reason: Symptomatic bradycardia Budesonide (Budesonide 0.5 Mg/2 Ml Neb) 0.5 mg INHALATION BID.RESPIRATORY PRN PRN Reason: SHORTNESS OF BREATH Ceftriaxone Sodium (Ceftriaxone 1,000 Mg Sdv) 1,000 mg IVP Q24H [facility]; Protocol Last Admin: 09/26/25 14:58 Dose: 1,000 mg Clopidogrel Bisulfate (Clopidogrel 75 Mg Tablet) 75 mg PO DAILY [facility] Last Admin: 09/27/25 05:52 Dose: 75 mg Docusate Sodium (Docusate Sodium 100 Mg Capsule) 100 mg PO DAILY PRN PRN Reason: CONSTIPATION Last Admin: 09/20/25 12:03 Dose: 100 mg Heparin Sodium (Porcine) (Heparin 5,000 Unit/Ml Inj 1 Ml) 5,000 unit SUBCUT Q12H [facility] Last Admin: 09/26/25 22:06 Dose: 5,000 unit Norepinephrine Bitartrate (Levophed) 4 mg in 250 mls @ 0 mls/hr IV .Q0M [facility]; Protocol Last Titration: 09/27/25 05:46 Dose: 0 mcg/min, 0 mls/hr Nitroglycerin/Dextrose (Nitroglycerin Drip) 50 mg in 250 mls @ 0 mls/hr IV .Q0M [facility]; Protocol Last Titration: 09/17/25 12:33 Dose: 0 mcg/min, 0 mls/hr Sodium Chloride (Sodium Chloride 0.9%) 1,000 mls @ 0 mls/hr IV .Q0M PRN PRN Reason: hypotension or symptomatic Albumin Human (Albumin) 12.5 gm in 50 mls @ 60 mls/hr IV PRN PRN PRN Reason: Hypotension and/or symptomatic Sodium Chloride (Sodium Chloride 0.9%) 1,000 mls @ 0 mls/hr IV .Q0M PRN PRN Reason: hypotension or symptomatic Albumin Human (Albumin) 12.5 gm in 50 mls @ 60 mls/hr IV PRN PRN PRN Reason: Hypotension and/or symptomatic Fluconazole 150 mg/ N/A 75 mls @ 50 mls/hr IV ONCE ONE Stop: 09/27/25 08:29 Last Admin: 09/27/25 07:25 Dose: 50 mls/hr Ipratropium [place] (Ipratropium 0.5 Mg/2.5 Ml Neb) 0.5 mg INHALATION Q6H.RESP PRN PRN Reason: SHORTNESS OF BREATH Levalbuterol HCl (Levalbuterol 1.25 Mg/3 Ml Neb) 1.25 mg INHALATION Q6H.RESP PRN PRN Reason: SHORTNESS OF BREATH Magnesium Hydroxide (Magnesium Hydroxide 30 Ml Udc) 30 ml PO DAILY PRN PRN Reason: CONSTIPATION Metoclopramide HCl (Metoclopramide 5 Mg/Ml Sdv 2 Ml) 5 mg IVP Q6H PRN PRN Reason: NAUSEA AND VOMITING Last Admin: 09/27/25 05:14 Dose: 5 mg Midodrine (Midodrine 5 Mg Tablet) 10 mg PO TID [facility] Last Admin: 09/27/25 07:23 Dose: 10 mg Morphine Sulfate (Morphine 4 Mg/Ml Sdv 1 Ml) 4 mg IVP Q4H PRN PRN Reason: SEVERE PAIN Last Admin: 09/27/25 06:27 Dose: 4 mg Naloxone HCl (Naloxone 0.4 Mg/Ml Sdv) 0.1 mg IVP Q2M PRN PRN Reason: RESPIRATORY RATE < 8/MIN Nitroglycerin (Nitroglycerin 0.4 Mg Sublingual Tablet) 0.4 mg SUBLINGUAL Q5M PRN PRN Reason: CHEST PAIN Non-Formulary Medication ( Omeprazole 20 Mg Caps) 20 each PO BID [facility] Last Admin: 09/26/25 21:59 Dose: 20 each Nystatin (Nystatin 100,000 Unit/Ml Udc 5 Ml) 200,000 unit PO QID [facility] Last Admin: 09/27/25 07:25 Dose: 200,000 unit Phenol (Phenol Oral Reese 177 Ml) 3 spray MUCOUS MEM Q2H PRN PRN Reason: SORE THROAT Last Admin: 09/25/25 00:25 Dose: 3 spray Polyethylene Glycol (Polyethylene Glycol 3350 Pkt 17 Gm) 17 gm PO DAILY [facility] Last Admin: 09/27/25 04:37 Dose: Not Given Senna (Sennosides 8.6 Mg Tablet) 17.2 mg PO BEDTIME [facility] Last Admin: 09/26/25 21:12 Dose: Not Given Senna/Docusate Sodium (Sennosides-Docusate Tablet) 1 tab PO BID [facility] Last Admin: 09/27/25 04:37 Dose: Not Given Sevelamer Carbonate (Sevelamer 800 Mg Tablet) 800 mg PO TID [facility] Last Admin: 09/26/25 22:05 Dose: Not Given Vitals/I&O/Wt Last Vital Signs Temp 97.5 F L 09/26/25 22:00 Pulse 72 09/27/25 06:00 Resp 12 09/27/25 06:27 BP 99/57 09/27/25 06:00 Pulse Ox 91 09/27/25 05:45 O2 Del Method Room Air 09/26/25 19:00 O2 Flow Rate 2 09/25/25 07:57 FiO2 1 09/20/25 19:28 09/26/25 09/27/25 09/27/25 22:59 06:59 14:59 Intake Total 500 / 1050 1178.541 / 2228.541 Output Total 2078 200 / 2279 Balance -1579 / -1029 978.541 / -50.459 Weight last 48 hrs Weight 91.5 kg Physical Exam Narrative: Blood pressure is low Vital signs noted. HEENT normocephalic atraumatic comfortable in bed no shortness of breath. Neck is supple lungs have good air movement heart is regular +s1, s2 abdomen is soft positive bowel sounds extremities have improved 1++ edema through the calves. Patient has a left femoral dialysis catheter neuro awake alert oriented x 3 Urinary Catheter Management: Wu: Cath Placed During This Visit: no Reason for Continuing Indwelling Catheter: Accurate Measurement of Urinary Output in Critically Ill Patients Data 09/25/25 03:45 09/27/25 05:50 A&P Assessment and plan 1. Acute kidney injury: 85-year-old man with ST elevation MA, mitral regurgitation ,aortic valve stenosis, heart failure reduced EF status post cardiac catheterization with multiple stents. 1. Acute kidney injury differential diagnosis includes ATN, cardiorenal syndrome with some contrast-induced BRANDYN. At this time patient remains dialysis dependent however he is starting to urinate. s/p HD yesterday -hold dialysis today and give furosemide -monitor tomorrow for further dilysis needs -per cardiology if there is any medication or procedure that can be done to help with his heart failure reduced EF and severe mitral regurgitation along with thickened aortic valve with question of aortic stenosis. 2. Anemia monitor hemoglobin, if hemoglobin decreases under 9 then consider initiation of epogen 3. Hyponatremia improved with dialysis 4. monitor on a phosphorus binder Patient seen and examined using audiovisual equipment with the aid of a nurse patient consented to hemodialysis and to telehealth. Plan: Diuretics today ,see above PDMP PDMP Reviewed: Not Reviewed Attestations Medical Necessity Statement*: NSTEMI, BRANDYN Time Spent in Patient Care: 16 - 35 minutes (>than 50% of time spent in counselling and/or direct pt care on unit). Coding Level of Care Code Acute Code for [facility] Diagnoses Acute kidney injury N17.9
--- NOTE | 2025-09-27 08:59 | PC.NURSE ---
Per Patients request diet order changed to pureed foods, Verbal order received from Dr. Jaime as well.
[2025-09-27 09:54] LABS: Lipase 82 U/L (13-60)
[2025-09-27] MEDS: FUROsemide 10 mg/mL SDV 10mL 60 MG IVP ×2 (11:02→21:45)
[2025-09-27] MEDS: heparin 5,000 unit/mL INJ 1 mL 5000 UNIT SUBCUT ×2 (11:03→21:46)
--- NOTE | 2025-09-27 12:07 | P.PN_ITS ---
Subjective 2 Subjective: Off levo Making urine Temporary dialysis catheter working Vitals/I&O/Wt Last Vital Signs Temp 97.5 F L 09/26/25 22:00 Pulse 71 09/27/25 09:53 Resp 16 09/27/25 09:53 BP 103/48 09/27/25 09:45 Pulse Ox 96 09/27/25 09:53 O2 Del Method Room Air 09/27/25 09:53 O2 Flow Rate 2 09/27/25 06:45 FiO2 1 09/20/25 19:28 09/26/25 09/27/25 09/27/25 22:59 06:59 14:59 Intake Total 500 / 1050 1178.541 / 2228.541 75 / 75 Output Total 2079 / 2079 200 / 2279 Balance -1579 / -1029 978.541 / -50.459 75 / 75 Weight last 48 hrs Weight 201 lb 11.567 oz Physical Exam 2 Narrative: Chest: Unlabored breathing room air. No lymphadenopathy. Heart: Regular rate and rhythm. Abdomen: Soft, nontender, nondistended. No masses or lymphadenopathy. Left groin dialysis catheter functional Urinary Catheter Management: Wu: Cath Placed During This Visit: no Reason for Continuing Indwelling Catheter: Accurate Measurement of Urinary Output in Critically Ill Patients Data 09/25/25 03:45 09/27/25 05:50 A&P Assessment and plan 1. Acute kidney injury: Plan: 85-year-old male whom surgery was consulted for dialysis catheter. He has a functional left groin temporary dialysis catheter. Nurse called about timing of tunneled dialysis catheter. I called the covering hospitalist and had a discussion with them. At this point nephrology is trying to transition back to diuresis since he is making urine. He just came off the Levophed yesterday. He is still in the ICU. I have explained to the hospitalist that the best course of action is to make sure the patient will definitely need ongoing dialysis before proceeding with a tunneled dialysis catheter since there are risks associated with this procedure including massive bleeding and . Hospitalist expressed there is no urgency for a tunneled dialysis catheter in his view. Nephrology note from today is also consistent with this. If plan is to discharge the patient over the weekend, hospitalist can contact on-call surgeon for tunneled dialysis catheter. Otherwise I will available for TDC next week. PDMP PDMP Reviewed: Not Reviewed Attestations 2 Medical Necessity Statement*: Day Coding Level of Care Code 60258 Diagnoses Acute kidney injury N17.9
--- NOTE | 2025-09-27 12:55 | P.PN_ITS ---
Subjective 2 Subjective: reports some oral pain afebrile levophed restarted Vitals/I&O/Wt Last Vital Signs Temp 97.5 F L 09/26/25 22:00 Pulse 71 09/27/25 09:53 Resp 16 09/27/25 09:53 BP 103/48 09/27/25 09:45 Pulse Ox 96 09/27/25 09:53 O2 Del Method Room Air 09/27/25 09:53 O2 Flow Rate 2 09/27/25 06:45 FiO2 1 09/20/25 19:28 09/26/25 09/27/25 09/27/25 22:59 06:59 14:59 Intake Total 500 / 1050 1178.541 / 2228.541 75 / 75 Output Total 2079 / 2079 200 / 2279 Balance -1579 / -1029 978.541 / -50.459 75 / 75 Weight last 48 hrs Weight 91.5 kg Physical Exam 2 Const: COMMON NORMALS: no acute distress and patient oriented x3 HENMT: OTHER: stable mild tenderness Resp: COMMON NORMALS: normal respiratory effort EFFORT & INSPECTION: Yes able to speak in complete sentences Cardio: COMMON NORMALS: regular rate and regular rhythm RATE: regular rate RHYTHM: regular rhythm GI: COMMON NORMALS: Normal to inspection, nondistended, normoactive bowel sounds present Neuro: COMMON NORMALS: patient oriented x3 Urinary Catheter Management: Wu: Cath Placed During This Visit: no Reason for Continuing Indwelling Catheter: Accurate Measurement of Urinary Output in Critically Ill Patients Data 09/25/25 03:45 09/27/25 05:50 A&P Assessment and plan 1. 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 - Telemetry monitoring - echo reported: 30-35% EF # Acute congestive heart failure: Flash pulmonary edema: proBNP around 50,000's Patient having signs and symptoms of acute congestive heart failure since he has reduced ejection fraction Cannot continue with Lasix since the patient is requiring norepinephrine and therefore hemodialysis was There were transaminitis high likely all secondary to congestive hepatomegaly, and postdialysis improving #Acute kidney injury: / ESRD appreciate renal recs, HD tunnel cath planned at dc # Nonrheumatic aortic valve stenosis: Stable, echo reported: Aortic valve is thickened and calcified. Doppler signal is inadequate to assess aortic stenosis. monitor for symptoms #BPH with obstruction/lower urinary tract symptoms: Patient on Wu's catheter, monitor for intake and output PDMP PDMP Reviewed: Not Reviewed Attestations 2 Medical Necessity Statement*: hi blas Coding Level of Care Code 86937 Diagnoses Dysphagia R13.10
--- NOTE | 2025-09-27 13:19 | P.PN_ITS ---
<Statement entered by Esha Orellana MD - 09/27/25 18:14> Patient was evaluated and cared for in conjunction with an advanced practice practitioner. I personally examined the patient and reviewed the chart and all pertinent data including imaging, telemetry, and laboratory results. I discussed the patient in detail with the advanced practice practitioner. Please see their note for complete H&P testing result and agreed upon plan of care for the patient. Subjective 2 Subjective: Patient denies any chest pain or shortness of breath. He has started to make some urine. Off of levophed today. Continues to take asa and plavix PO. He has been started on lasix 60 mg q12. Creat. has improved to 4.7 from 6.1. Vitals/I&O/Wt Last Vital Signs Temp 97.5 F L 09/26/25 22:00 Pulse 71 09/27/25 09:53 Resp 16 09/27/25 09:53 BP 103/48 09/27/25 09:45 Pulse Ox 96 09/27/25 09:53 O2 Del Method Room Air 09/27/25 09:53 O2 Flow Rate 2 09/27/25 06:45 FiO2 1 09/20/25 19:28 09/26/25 09/27/25 09/27/25 22:59 06:59 14:59 Intake Total 500 / 1050 1178.541 / 2228.541 75 / 75 Output Total 2079 / 2079 200 / 2279 Balance -1579 / -1029 978.541 / -50.459 75 / 75 Weight last 48 hrs Weight 201 lb 11.567 oz Physical Exam 2 Narrative: General: No apparent distress HENMT: normoceophalic Muskuloskeletal: Full ROM Respiratory: Normal respiratory effort, clear on the left but right lower anterior lobe diminished, no use of accessory muscles Cardio: No JVD, regular rate, regular rhythm, S1 S2 normal, no murmurs, peripheral pulses 2+ radial palpated bilaterally GI: Normal to inspection, nondistended Extremities: Full ROM, normal, normal capillary refill, no cyanosis or edema Neuro: Alert and oriented x4 Psych: Affect normal, denies suicidal ideation, mental status grossly normal Skin: Right groin slight bruising w/o evidence of hematoma, soft Urinary Catheter Management: Wu: Cath Placed During This Visit: no Reason for Continuing Indwelling Catheter: Accurate Measurement of Urinary Output in Critically Ill Patients Data 09/25/25 03:45 09/27/25 05:50 A&P Assessment and plan 1. ST elevation (STEMI) myocardial infarction: 2. Coronary artery disease involving [place] coronary artery of [place] heart without angina pectoris: 3. Essential hypertension: 4. Nonrheumatic aortic valve stenosis: 5. Heart failure with reduced ejection fraction: 6. Acute kidney injury: 7. Mitral valve regurgitation: Plan: Continue current management including dual antiplatelet therapy aspirin and plavix. Denies cp or shortness of breath. Appears euvolemic on exam. Awaiting permanent hemodialysis catheter. Appreciate nephrology assistance. Will continue amiodarone 400 mg daily. Continue midodrine 10 mg TID. Patient is off of levophed. Patient has wide complex qrs. May need CRTD at some point. Patient has severe MR. Getting lasix. May need mitraclip in the future once stable. PDMP PDMP Reviewed: Not Reviewed Attestations 2 Medical Necessity Statement*: Stay expected to cross 2 midnignts due to STEMI and BRANDYN requiring dialysis and pressors. Coding Level of Care Code Acute Code for [facility] Diagnoses ST elevation (STEMI) myocardial infarction I21.3 Coronary artery disease involving [place] coronary artery of [place] heart without angina pectoris I25.10 Associated angina: without angina Coronary Disease-Associated Artery/Lesion type: [place] artery [place] vs. transplanted heart: [place] heart Essential hypertension I10 Hypertension type: essential hypertension Nonrheumatic aortic valve stenosis I35.0 Cardiac valve disease etiology: nonrheumatic Heart failure with reduced ejection fraction I50.20 Acute kidney injury N17.9 Mitral valve regurgitation I34.0
[2025-09-27] MEDS: cefTRIAXone 1,000 mg SDV 1000 MG IVP (14:55)
--- NOTE | 2025-09-27 16:20 | CTR_ITS ---
PROCEDURE INFORMATION: Exam: CT Neck Without Contrast Exam date and time: 09/27/2025 6:15 PM Age: 85 years old Clinical indication: Other: Mouth tenderness/blue tongue TECHNIQUE: Imaging protocol: Computed tomography of the neck without contrast. Radiation optimization: All CT scans at this facility use at least one of these dose optimization techniques: automated exposure control; mA and/or kV adjustment per patient size (includes targeted exams where dose is matched to clinical indication); or iterative reconstruction. COMPARISON: RF FL barium swallow modifd [id number] 09/22/2025 1:06 PM RADIATION DOSE METRICS: Total DLP (mGy-cm): 266.52 FINDINGS: Tubes, catheters and devices: Venous catheter courses through the brachiocephalic vein and SVC with tip off image. Brain: No intracranial abnormality, visualized portions. Orbital cavities: Evidence of prior cataract surgery. Salivary glands: Normal. Glands are normal in size. Pharynx: Unremarkable. No significant tonsillar enlargement. Larynx: Unremarkable. Epiglottis is normal. Thyroid: Normal. No enlarged or calcified nodules. Trachea: Visualized trachea is unremarkable. Lungs: Apical atelectasis. Pleural spaces: Bilateral pleural effusions incompletely assessed on this examination. Lymph nodes: Unremarkable. No lymphadenopathy. Bones/joints: Multilevel degenerative changes of the cervical spine with degenerative disc disease most prominent at C3-C4, C4-C5 and C5-C6. Soft tissues: Unremarkable. No significant soft tissue swelling. Other findings: No CT evidence of acute abnormality. CT/CT neck wo con [id number] IMPRESSION: 1. No CT evidence of acute abnormality. 2. Bilateral pleural effusions incompletely assessed on this examination.
--- NOTE | 2025-09-27 16:28 | PC.NURSE ---
Dr. Hudson requested patient to be npo this am for possible tunnelled dialysis catheter, instructed this nurse to reach out to surgical consult re plans for imported dialysis catheter today. Dr. Coker called, stated not non licensed nuclear plant operator today - to reach out to Dr. Ansari who is non licensed nuclear plant operator about dialysis catheter. Call placed to Dr. Ansari- informed this nurse was instructed to reach out to surgery about dialysis catheter and patient npo status per Dr. Hudson. Dr. Ansari to floor to see patient - decision made - no catheter to be placed today. Patient placed back on diet. Dr. Coker also into to see patient.
--- NOTE | 2025-09-27 16:59 | PC.NURSE ---
Patient refusing renvela, stool softners, and maalox today. MD aware.
[2025-09-28] VITALS (36 sets, daily range): BP systolic 86–113; BP diastolic 43–77; PULSE 0–80; RESP 13–24; TEMP 36.4–36.8; O2SAT 83–98; BMI 29.7
[2025-09-28] MEDS: metoclopramide 5 mg/mL SDV 2 mL IVP (06:00)
[2025-09-28] MEDS: morphine 4 mg/mL SDV 1 mL IVP ×3 (06:03→20:36)
[2025-09-28] MEDS: FUROsemide 10 mg/mL SDV 10mL 60 MG IVP ×2 (08:12→20:34)
--- NOTE | 2025-09-28 08:40 | PC.NURSE ---
assisted back to bed with assist , left groin dialysis cath in place drs intact, picc line left arm continues to c/o oral pain and difficultly swallowing , family at bedside did refuse part of am meds this morning
[2025-09-28 08:53] LABS: Alanine Aminotransferase 247 U/L (0-41); Albumin Level 3.7 g/dL (3.5-5.2); Alkaline Phosphatase 503 U/L (40-130); Anion Gap 26.7 (5-19); Aspartate Amino Transferase 184 U/L (0-40); Calcium 8.5 mg/dL (8.5-10.5); Carbon Dioxide 16 mmol/L (22-29); Chloride 89 mmol/L (98-107); Globulin 2.6 g/dL (1.3-4.6); Glucose 166 mg/dL (65-115); Magnesium 2.7 mg/dL (1.7-2.3); Osmolality Calculated 293 mOsm/kg (285-295); Potassium 5.7 mmol/L (3.5-5.1); Sodium 126 mmol/L (136-145); Total Protein 6.3 g/dL (6.6-8.7)
[2025-09-28 09:11] LABS: Blood Urea Nitrogen 88 mg/dL (8-23)
--- NOTE | 2025-09-28 09:51 | PM.PN ---
Subjective Subjective: uncomfortable, weak, oliguric. He is short of breath not doing well in bed. No nausea or vomiting but poor appetite. Medications: Reviewed: Yes Medication Review Details: Current Medications Acetaminophen (Acetaminophen 325 Mg Tablet) 650 mg PO Q6H PRN PRN Reason: MILD PAIN Last Admin: 09/23/25 01:48 Dose: 650 mg Al Hydrox/Mg Hydrox/Simethicone (Atco-Sad-Pjpkgqwts-Hoda 30 Ml Udc) 30 ml PO Q15M PRN PRN Reason: INDIGESTION Al Hydrox/Mg Hydrox/Simethicone (Glzl-Anm-Rtdmaccon-Hoda 30 Ml Udc) 30 ml PO Q4H [facility] Last Admin: 09/28/25 06:09 Dose: Not Given Alteplase, Recombinant (Alteplase 1 Mg/Ml Sdv 2 Ml) 2 mg INTRACATH PRN PRN PRN Reason: DIALYSIS USE ONLY Amiodarone HCl (Amiodarone 200 Mg Tablet) 400 mg PO DAILY [facility] Last Admin: 09/28/25 06:45 Dose: Not Given Aspirin (Aspirin 81 Mg Ec Tablet) 81 mg PO DAILY [facility] Last Admin: 09/28/25 05:55 Dose: 81 mg Atropine Sulfate (Atropine 1 Mg/Ml Sdv 1 Ml) 0.5 mg IVP PRN PRN PRN Reason: Symptomatic bradycardia Budesonide (Budesonide 0.5 Mg/2 Ml Neb) 0.5 mg INHALATION BID.RESPIRATORY PRN PRN Reason: SHORTNESS OF BREATH Ceftriaxone Sodium (Ceftriaxone 1,000 Mg Sdv) 1,000 mg IVP Q24H [facility]; Protocol Last Admin: 09/27/25 14:55 Dose: 1,000 mg Clopidogrel Bisulfate (Clopidogrel 75 Mg Tablet) 75 mg PO DAILY [facility] Last Admin: 09/28/25 05:55 Dose: 75 mg Docusate Sodium (Docusate Sodium 100 Mg Capsule) 100 mg PO DAILY PRN PRN Reason: CONSTIPATION Last Admin: 09/20/25 12:03 Dose: 100 mg Furosemide (Furosemide 10 Mg/Ml Sdv 10ml) 60 mg IVP Q12H [facility] Last Admin: 09/28/25 08:12 Dose: 60 mg Heparin Sodium (Porcine) (Heparin 5,000 Unit/Ml Inj 1 Ml) 5,000 unit SUBCUT Q12H [facility] Last Admin: 09/27/25 21:46 Dose: 5,000 unit Norepinephrine Bitartrate (Levophed) 4 mg in 250 mls @ 0 mls/hr IV .Q0M [facility]; Protocol Last Titration: 09/27/25 05:46 Dose: 0 mcg/min, 0 mls/hr Nitroglycerin/Dextrose (Nitroglycerin Drip) 50 mg in 250 mls @ 0 mls/hr IV .Q0M [facility]; Protocol Last Titration: 09/17/25 12:33 Dose: 0 mcg/min, 0 mls/hr Sodium Chloride (Sodium Chloride 0.9%) 1,000 mls @ 0 mls/hr IV .Q0M PRN PRN Reason: hypotension or symptomatic Albumin Human (Albumin) 12.5 gm in 50 mls @ 60 mls/hr IV PRN PRN PRN Reason: Hypotension and/or symptomatic Sodium Chloride (Sodium Chloride 0.9%) 1,000 mls @ 0 mls/hr IV .Q0M PRN PRN Reason: hypotension or symptomatic Albumin Human (Albumin) 12.5 gm in 50 mls @ 60 mls/hr IV PRN PRN PRN Reason: Hypotension and/or symptomatic Ipratropium [place] (Ipratropium 0.5 Mg/2.5 Ml Neb) 0.5 mg INHALATION Q6H.RESP PRN PRN Reason: SHORTNESS OF BREATH Levalbuterol HCl (Levalbuterol 1.25 Mg/3 Ml Neb) 1.25 mg INHALATION Q6H.RESP PRN PRN Reason: SHORTNESS OF BREATH Magnesium Hydroxide (Magnesium Hydroxide 30 Ml Udc) 30 ml PO DAILY PRN PRN Reason: CONSTIPATION Metoclopramide HCl (Metoclopramide 5 Mg/Ml Sdv 2 Ml) 5 mg IVP Q6H PRN PRN Reason: NAUSEA AND VOMITING Last Admin: 09/28/25 06:00 Dose: 5 mg Midodrine (Midodrine 5 Mg Tablet) 10 mg PO TID [facility] Last Admin: 09/28/25 05:56 Dose: 10 mg Morphine Sulfate (Morphine 4 Mg/Ml Sdv 1 Ml) 4 mg IVP Q4H PRN PRN Reason: SEVERE PAIN Last Admin: 09/28/25 06:03 Dose: 4 mg Naloxone HCl (Naloxone 0.4 Mg/Ml Sdv) 0.1 mg IVP Q2M PRN PRN Reason: RESPIRATORY RATE < 8/MIN Nitroglycerin (Nitroglycerin 0.4 Mg Sublingual Tablet) 0.4 mg SUBLINGUAL Q5M PRN PRN Reason: CHEST PAIN Non-Formulary Medication ( Omeprazole 20 Mg Caps) 20 each PO BID [facility] Last Admin: 09/28/25 06:45 Dose: Not Given Nystatin (Nystatin 100,000 Unit/Ml Udc 5 Ml) 200,000 unit PO QID [facility] Last Admin: 09/28/25 06:45 Dose: Not Given Phenol (Phenol Oral [place] 177 Ml) 3 spray MUCOUS MEM Q2H PRN PRN Reason: SORE THROAT Last Admin: 09/25/25 00:25 Dose: 3 spray Polyethylene Glycol (Polyethylene Glycol 3350 Pkt 17 Gm) 17 gm PO DAILY [facility] Last Admin: 09/28/25 06:09 Dose: Not Given Senna (Sennosides 8.6 Mg Tablet) 17.2 mg PO BEDTIME [facility] Last Admin: 09/27/25 21:40 Dose: Not Given Senna/Docusate Sodium (Sennosides-Docusate Tablet) 1 tab PO BID [facility] Last Admin: 09/28/25 06:09 Dose: Not Given Sevelamer Carbonate (Sevelamer 800 Mg Tablet) 800 mg PO TID [facility] Last Admin: 09/28/25 06:09 Dose: Not Given Vitals/I&O/Wt Last Vital Signs Temp 97.3 F L 09/27/25 15:00 Pulse 66 09/28/25 08:00 Resp 16 09/28/25 08:00 BP 113/60 09/28/25 08:00 Pulse Ox 87 L 09/28/25 08:00 O2 Del Method Room Air 09/28/25 00:00 O2 Flow Rate 2 09/27/25 06:45 FiO2 1 09/20/25 19:28 09/27/25 09/28/25 09/28/25 22:59 06:59 14:59 Intake Total 337 / 702 300 / 300 Output Total 200 / 200 250 / 450 Balance 137 / 502 -250 / 252 300 / 300 Weight last 48 hrs Weight 91.535 kg Weight 91.5 kg Physical Exam Narrative: Vital signs noted. HEENT normocephalic atraumatic uncomfortable in bed, inc shortness of breath. Neck is supple lungs have b/l crackles heart is regular +s1, s2 abdomen is soft positive bowel sounds extremities have improved 2+ edema through the calves. Patient has a left femoral dialysis catheter neuro awake alert oriented x 3 Urinary Catheter Management: Wu: Cath Placed During This Visit: no Reason for Continuing Indwelling Catheter: Acute Urinary Retention or Obstruction Data 09/25/25 03:45 09/28/25 07:50 A&P Assessment and plan 1. Acute kidney injury: 85-year-old man with ST elevation NH, mitral regurgitation ,aortic valve stenosis, heart failure reduced EF status post cardiac catheterization with multiple stents. 1. Acute kidney injury differential diagnosis includes ATN, cardiorenal syndrome with some contrast-induced BRANDYN. At this time patient remains dialysis dependent Will perform hemodialysis today maybe tomorrow then remove femoral catheter. And monitor for renal recovery versus needs of appropriate. 2. heart failure reduced EF and severe mitral regurgitation along with thickened aortic valve with question of aortic stenosis. As per cardiology attempt dialysis and fluid removal 3. Anemia monitor hemoglobin, if hemoglobin decreases under 9 then consider initiation of epogen 4. Hyponatremia- monitor with dialysis 5. Patient has developed an increased anion gap metabolic acidosis likely from renal failure. Can consider checking a lactic acid level. 6. Hyperphosphatemia -monitor on dialysis and a phosphorus binder Patient seen and examined using audiovisual equipment with the aid of a nurse patient consented to hemodialysis and to telehealth. Case discussed in detail with the patient and his family Plan: Hemodialysis today ,see above PDMP PDMP Reviewed: Not Reviewed Attestations Medical Necessity Statement*: Acute kidney failure, recent NH, hypoxemia Time Spent in Patient Care: 16 - 35 minutes (>than 50% of time spent in counselling and/or direct pt care on unit). Coding Level of Care Code Acute Code for [facility] Diagnoses Acute kidney injury N17.9
[2025-09-28] MEDS: heparin 5,000 unit/mL INJ 1 mL 5000 UNIT SUBCUT ×2 (10:37→20:35)
[2025-09-28] MEDS: nystatin 100,000 unit/mL UDC 5 mL 200000 UNIT PO ×3 (10:45→22:56)
--- NOTE | 2025-09-28 11:38 | PC.OT ---
OT TREATMENT ATTEMPTED. PATIENT CURRENTLY IN DIALYSIS. WILL ATTEMPT AGAIN THIS AFTERNOON
--- NOTE | 2025-09-28 12:01 | P.PN_ITS ---
Subjective 2 Subjective: States overall he is doing all right. Denies pain or discomfort. Breathing is comfortable. Blood pressure has been doing better. Has weaned off pressors. Vitals/I&O/Wt Last Vital Signs Temp 97.5 F L 09/28/25 11:09 Pulse 66 09/28/25 11:09 Resp 20 H 09/28/25 11:09 BP 102/66 09/28/25 11:09 Pulse Ox 92 09/28/25 11:00 O2 Del Method Room Air 09/28/25 10:23 O2 Flow Rate 2 09/27/25 06:45 FiO2 1 09/20/25 19:28 09/27/25 09/28/25 09/28/25 22:59 06:59 14:59 Intake Total 337 / 702 300 / 300 Output Total 200 / 200 250 / 450 Balance 137 / 502 -250 / 252 300 / 300 Weight last 48 hrs Weight 91.535 kg Weight 91.5 kg Physical Exam 2 Narrative: Awake alert, pleasant, conversant. Undergoing dialysis via femoral dialysis catheter. Const: COMMON NORMALS: patient oriented x3 and alert GENERAL APPEARANCE: c ooperative ORIENTATION/CONSCIOUSNESS: Yes awake HENMT: COMMON NORMALS: oropharynx normal Neck/C-Spine: COMMON NORMALS: no JVD Resp: COMMON NORMALS: normal respiratory effort and clear to auscultation bilaterally AUSCULTATION: clear to auscultation bilaterally Cardio: COMMON NORMALS: no JVD, regular rhythm, S1 normal heart sound present, S2 normal heart sound present and No murmurs present (Cardio) RHYTHM: regular rhythm HEART SOUNDS: S1 normal heart sound present and S2 normal heart sound present GI: COMMON NORMALS: Normal to inspection, nondistended, normoactive bowel sounds present, Soft to palpation and non-tender PALPATION: Yes Soft to palpation Extremity: COMMON NORMALS: no joint enlargement and no pedal edema Neuro: COMMON NORMALS: patient oriented x3 and moves all extremities S ENSORIUM/ORIENTATION: Yes alert Skin: COMMON NORMALS: no rashes or lesions noted GENERAL SKIN EXAM: no rashes or lesions noted Urinary Catheter Management: Wu: Cath Placed During This Visit: no Reason for Continuing Indwelling Catheter: Acute Urinary Retention or Obstruction Data 09/25/25 03:45 09/28/25 07:50 A&P Assessment and plan 1. Dysphagia: Plan: Shock: Possibly cardiogenic after acute decrease in ejection fraction after STEMI, so far has resolved. Weaned off pressor. Continue to monitor blood pressures. Caution with antihypertensives. #Acute kidney injury: Acute renal failure, so far without improvement. Possible progression to ESRD. Dialysis today. Monitor for risk of hypotension. Has come off pressor. Reviewed nephrology note. Discussed with rock loader, plan to remove femoral dialysis catheter, with recommendation for tunneled catheter to be placed sometime Thursday or Thursday. If transferring for defibrillator, this could be done at an outside facility, followed by dialysis. Discussed with cardiology provider. Discussed with nursing, family service caseworker. # Acute congestive heart failure: Cardiology plans for transfer to outside facility for defibrillator prior to discharge home per discussion with cardiology team. Continuing dialysis. Saturating well on room air. Still with significant peripheral edema, although does endorse chronic peripheral edema for which he usually wears compression stockings at home. 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 - Telemetry monitoring - echo reported: New decrease to 30-35% EF #dysphagia: Some dysphagia, noted on evaluation with MBS as well, continue dysphagia diet. Without aspiration on MBS. Continues with nystatin. 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 CT of the neck was obtained without evidence of acute abnormality. Follow-up with ENT as outpatient. # Nonrheumatic aortic valve stenosis: Stable, echo reported: Aortic valve is thickened and calcified. Doppler signal is inadequate to assess aortic stenosis. monitor for symptoms #BPH with obstruction/lower urinary tract symptoms: Patient on Wu's catheter, monitor for intake and output # Severe sepsis: Does not appear to have ever had sepsis. Without leukocytosis, afebrile. Initial tachycardia may have been related to his other conditions. Without clear source. Reviewed blood culture, remains negative. Without leukocytosis on prior CBC on review. Has been empirically on ceftriaxone. Will discontinue ceftriaxone. PDMP PDMP Reviewed: Not Reviewed Attestations 2 Medical Necessity Statement*: Continue admission, pending arrangements for defibrillator by cardiology team, and will need tunneled catheter for continued dialysis to be placed sometime Thursday or Thursday early next week prior to return return home. , High MDM includes amount and/or complexity of data reviewed/ordered [ previous or external records, resulted lab(s)/test(s), ordered lab(s)/test(s) and other healthcare professional discussion] and described risk of complication, morbidity or mortality of management as documented and High Time for a total of 60 minutes, includes reviewing past or interval history, examining/interviewing patient, placing orders, counseling patient/family/other support, discussing plan of care with staff, communicating with other healthcare providers, documenting encounter and coordinating care Diagnoses Dysphagia R13.10
--- NOTE | 2025-09-28 13:48 | PC.NURSE ---
pt getting dialysis at this time refused all meds at this time . explained importance of midadrine still refused meds at this time .
--- NOTE | 2025-09-28 15:29 | PM.PN ---
Documented by User: Kerry Tan NP 09/28/25 15:33 Subjective Subjective: Patient sitting at bedside. Denies chest pain. He is taking his aspirin and Plavix p.o. Creatinine is slightly worse today at 5.7. He is off of Levophed. Vitals/I&O/Wt Last Vital Signs Temp 97.5 F L 09/28/25 11:09 Pulse 68 09/28/25 15:00 Resp 21 H 09/28/25 15:00 BP 99/58 09/28/25 15:00 Pulse Ox 83 L 09/28/25 15:00 O2 Del Method Room Air 09/28/25 12:00 O2 Flow Rate 2 09/28/25 12:00 FiO2 1 09/20/25 19:28 09/28/25 09/28/25 09/28/25 06:59 14:59 22:59 Intake Total 300 / 300 Output Total 250 / 450 Balance -250 / 252 300 / 300 Weight last 48 hrs Weight 201 lb 12.8 oz Weight 201 lb 11.567 oz Physical Exam Narrative: General: No apparent distress HENMT: normoceophalic Muskuloskeletal: Full ROM Respiratory: Normal respiratory effort, clear on the left but right lower anterior lobe diminished, no use of accessory muscles Cardio: No JVD, regular rate, regular rhythm, S1 S2 normal, no murmurs, peripheral pulses 2+ radial palpated bilaterally GI: Normal to inspection, nondistended Extremities: Full ROM, normal, normal capillary refill, no cyanosis or edema Neuro: Alert and oriented x4 Psych: Affect normal, denies suicidal ideation, mental status grossly normal Skin: Right groin slight bruising w/o evidence of hematoma, soft Urinary Catheter Management: Wu: Cath Placed During This Visit: no Reason for Continuing Indwelling Catheter: Acute Urinary Retention or Obstruction Data 09/29/25 03:32 09/29/25 03:32 A&P Assessment and plan 1. ST elevation (STEMI) myocardial infarction: 2. Coronary artery disease involving [place] coronary artery of [place] heart without angina pectoris: 3. Essential hypertension: 4. Nonrheumatic aortic valve stenosis: 5. Heart failure with reduced ejection fraction: 6. Acute kidney injury: 7. Mitral valve regurgitation: 8. Cardiogenic shock: Plan: Patient is now off of Levophed. Stable from a cardiac standpoint. He will most likely need WOOD TURNER-D in the future. He is getting dialysis today. Patient has planned tunneled dialysis catheter to be placed Thursday or Thursday. Have considered transferring for defibrillator placement if patient is accepted, but waiting to hear back at this time. Continue plavix, aspirin, statin, midodrine 10 tid. PDMP PDMP Reviewed: Not Reviewed Attestations Medical Necessity Statement*: Stay expected to cross 2 midnignts due to STEMI and BRANDYN requiring dialysis and pressors. Coding Level of Care Code Acute Code for [facility] Fwd Diagnoses ST elevation (STEMI) myocardial infarction I21.3 Coronary artery disease involving [place] coronary artery of [place] heart without angina pectoris I25.10 Associated angina: without angina Coronary Disease-Associated Artery/Lesion type: [place] artery [place] vs. transplanted heart: [place] heart Essential hypertension I10 Hypertension type: essential hypertension Nonrheumatic aortic valve stenosis I35.0 Cardiac valve disease etiology: nonrheumatic Heart failure with reduced ejection fraction I50.20 Acute kidney injury N17.9 Mitral valve regurgitation I34.0 Cardiogenic shock R57.0 Documented by User: Esha Orellana MD 09/29/25 14:43 Physical Exam Urinary Catheter Management: Wu: Cath Placed During This Visit: no Data 09/29/25 03:32 09/29/25 03:32 A&P Assessment and plan 1. ST elevation (STEMI) myocardial infarction: 2. Coronary artery disease involving [place] coronary artery of [place] heart without angina pectoris: 3. Essential hypertension: 4. Nonrheumatic aortic valve stenosis: 5. Heart failure with reduced ejection fraction: 6. Acute kidney injury: 7. Mitral valve regurgitation: 8. Cardiogenic shock: Plan: Patient is now off of Levophed. Stable from a cardiac standpoint. He will most likely need WOOD TURNER and perhaps defibrillator as well since he continues to have systolic blood pressure in cardiogenic shock range when he gets off of the Levophed.. He is getting dialysis today. Patient has planned tunneled dialysis catheter to be placed Thursday or Thursday. Have considered transferring for defibrillator placement if patient is accepted, but waiting to hear back at this time. Continue plavix, aspirin, statin, midodrine 10 tid. PDMP PDMP Reviewed: Not Reviewed Coding Level of Care Code Acute Code for [facility] Fwd Diagnoses ST elevation (STEMI) myocardial infarction I21.3 Coronary artery disease involving [place] coronary artery of [place] heart without angina pectoris I25.10 Associated angina: without angina Coronary Disease-Associated Artery/Lesion type: [place] artery [place] vs. transplanted heart: [place] heart Essential hypertension I10 Hypertension type: essential hypertension Nonrheumatic aortic valve stenosis I35.0 Cardiac valve disease etiology: nonrheumatic Heart failure with reduced ejection fraction I50.20 Acute kidney injury N17.9 Mitral valve regurgitation I34.0 Cardiogenic shock R57.0
--- NOTE | 2025-09-28 15:49 | PC.OT ---
OT TREATMENT ATTEMPTED MULTIPLE TIMES TODAY. FIRST TWO ATTEMPTS, PATIENT RECEIVING DIALYSIS LAST ATTEMPT, PATIENT REPORTS THAT HE IS TOO TIRED AND DOES NOT FEEL HE IS GETTING GOOD CARE HERE. WHEN ASKED TO EXPLAIN HE REFERS TO HIS THROAT AND THE DIFFICULTY SWALLOWING HIS PILLS AND HIS VOICE IS HOARSE.
--- NOTE | 2025-09-28 17:34 | PC.NURSE ---
report called and transfered to room 106
--- NOTE | 2025-09-28 18:30 | PC.NURSE ---
Patient received from ICU via chair. Received report from GREG RN. Patient denies pain or needs. No distress observed. Daugther at bedside.
[2025-09-28] MEDS: fluconazole premix 200 MG/100 ML PREMIX 100 MG IV (20:35)
[2025-09-29] VITALS (15 sets, daily range): BP systolic 92–103; BP diastolic 53–69; PULSE 65–78; RESP 14–24; TEMP 36.1–36.7; O2SAT 91–98
[2025-09-29] MEDS: morphine 4 mg/mL SDV 1 mL IVP ×4 (01:05→17:01)
[2025-09-29 04:14] LABS: Hematocrit 29.9 % (37-53); Hemoglobin 9.90 g/dL (11.27-16.99); Mean Corpuscular HGB Conc 33.1 g/dL (30-55); Mean Corpuscular Hemoglobin 32.1 pg (27-33); Mean Corpuscular Volume 97.1 fl (82-101); Nucleated Red Blood Cells % 0.9 %; Platelet Count 96 10^3/cmm (157-399); Red Blood Count 3.08 10^6/uL (3.85-5.65); White Blood Count 14.67 10^3/uL (3.29-11.43)
[2025-09-29 04:26] LABS: Alanine Aminotransferase 244 U/L (0-41); Albumin Level 3.8 g/dL (3.5-5.2); Alkaline Phosphatase 551 U/L (40-130); Anion Gap 22.4 (5-19); Aspartate Amino Transferase 176 U/L (0-40); Blood Urea Nitrogen 73 mg/dL (8-23); Calcium 8.5 mg/dL (8.5-10.5); Carbon Dioxide 19 mmol/L (22-29); Chloride 92 mmol/L (98-107); Globulin 2.8 g/dL (1.3-4.6); Glucose 147 mg/dL (65-115); Magnesium 2.5 mg/dL (1.7-2.3); Osmolality Calculated 290 mOsm/kg (285-295); Potassium 5.4 mmol/L (3.5-5.1); Sodium 128 mmol/L (136-145); Total Protein 6.6 g/dL (6.6-8.7)
[2025-09-29] MEDS: nystatin 100,000 unit/mL UDC 5 mL 200000 UNIT PO ×2 (05:23→13:10)
--- NOTE | 2025-09-29 06:48 | P.PN_ITS ---
Subjective 2 Subjective: Patient was seen and examined states he is feeling better but is still swollen and short of breath. Requiring oxygen not sleeping well blood pressure remains on the low side. He complains of thrush in his mouth. Medications: Reviewed: Yes Medication Review Details: Current Medications Acetaminophen (Acetaminophen 325 Mg Tablet) 650 mg PO Q6H PRN PRN Reason: MILD PAIN Last Admin: 09/23/25 01:48 Dose: 650 mg Al Hydrox/Mg Hydrox/Simethicone (Pjxs-Xdd-Jkslhwxsa-Hoda 30 Ml Udc) 30 ml PO Q15M PRN PRN Reason: INDIGESTION Al Hydrox/Mg Hydrox/Simethicone (Icrx-Ahp-Xyuchsgat-Hoda 30 Ml Udc) 30 ml PO Q4H [facility] Last Admin: 09/29/25 05:00 Dose: Not Given Alteplase, Recombinant (Alteplase 1 Mg/Ml Sdv 2 Ml) 2 mg INTRACATH PRN PRN PRN Reason: DIALYSIS USE ONLY Amiodarone HCl (Amiodarone 200 Mg Tablet) 400 mg PO DAILY [facility] Last Admin: 09/29/25 05:22 Dose: 400 mg Aspirin (Aspirin 81 Mg Ec Tablet) 81 mg PO DAILY [facility] Last Admin: 09/29/25 05:22 Dose: 81 mg Atropine Sulfate (Atropine 1 Mg/Ml Sdv 1 Ml) 0.5 mg IVP PRN PRN PRN Reason: Symptomatic bradycardia Budesonide (Budesonide 0.5 Mg/2 Ml Neb) 0.5 mg INHALATION BID.RESPIRATORY PRN PRN Reason: SHORTNESS OF BREATH Clopidogrel Bisulfate (Clopidogrel 75 Mg Tablet) 75 mg PO DAILY [facility] Last Admin: 09/29/25 05:23 Dose: 75 mg Docusate Sodium (Docusate Sodium 100 Mg Capsule) 100 mg PO DAILY PRN PRN Reason: CONSTIPATION Last Admin: 09/20/25 12:03 Dose: 100 mg Furosemide (Furosemide 10 Mg/Ml Sdv 10ml) 60 mg IVP Q12H [facility] Last Admin: 09/28/25 20:34 Dose: 60 mg Heparin Sodium (Porcine) (Heparin 5,000 Unit/Ml Inj 1 Ml) 5,000 unit SUBCUT Q12H [facility] Last Admin: 09/28/25 20:35 Dose: 5,000 unit Nitroglycerin/Dextrose (Nitroglycerin Drip) 50 mg in 250 mls @ 0 mls/hr IV .Q0M LAURA; Protocol Last Titration: 09/17/25 12:33 Dose: 0 mcg/min, 0 mls/hr Sodium Chloride (Sodium Chloride 0.9%) 1,000 mls @ 0 mls/hr IV .Q0M PRN PRN Reason: hypotension or symptomatic Albumin Human (Albumin) 12.5 gm in 50 mls @ 60 mls/hr IV PRN PRN PRN Reason: Hypotension and/or symptomatic Fluconazole (Diflucan Premix) 200 mg in 100 mls @ 100 mls/hr IV Q24H [facility] Last Infusion: 09/28/25 23:19 Dose: Infused Ipratropium [place] (Ipratropium 0.5 Mg/2.5 Ml Neb) 0.5 mg INHALATION Q6H.RESP PRN PRN Reason: SHORTNESS OF BREATH Last Admin: 09/29/25 00:33 Dose: 0.5 mg Levalbuterol HCl (Levalbuterol 1.25 Mg/3 Ml Neb) 1.25 mg INHALATION Q6H.RESP PRN PRN Reason: SHORTNESS OF BREATH Last Admin: 09/29/25 00:33 Dose: 1.25 mg Magnesium Hydroxide (Magnesium Hydroxide 30 Ml Udc) 30 ml PO DAILY PRN PRN Reason: CONSTIPATION Metoclopramide HCl (Metoclopramide 5 Mg/Ml Sdv 2 Ml) 5 mg IVP Q6H PRN PRN Reason: NAUSEA AND VOMITING Last Admin: 09/28/25 06:00 Dose: 5 mg Midodrine (Midodrine 5 Mg Tablet) 10 mg PO TID [facility] Last Admin: 09/29/25 05:22 Dose: 10 mg Morphine Sulfate (Morphine 4 Mg/Ml Sdv 1 Ml) 4 mg IVP Q4H PRN PRN Reason: SEVERE PAIN Last Admin: 09/29/25 01:05 Dose: 4 mg Naloxone HCl (Naloxone 0.4 Mg/Ml Sdv) 0.1 mg IVP Q2M PRN PRN Reason: RESPIRATORY RATE < 8/MIN Nitroglycerin (Nitroglycerin 0.4 Mg Sublingual Tablet) 0.4 mg SUBLINGUAL Q5M PRN PRN Reason: CHEST PAIN Non-Formulary Medication ( Omeprazole 20 Mg Caps) 20 each PO BID [facility] Last Admin: 09/29/25 05:25 Dose: 20 each Nystatin (Nystatin 100,000 Unit/Ml Udc 5 Ml) 200,000 unit PO QID [facility] Last Admin: 09/29/25 05:23 Dose: 200,000 unit Phenol (Phenol Oral [place] 177 Ml) 3 spray MUCOUS MEM Q2H PRN PRN Reason: SORE THROAT Last Admin: 09/25/25 00:25 Dose: 3 spray Polyethylene Glycol (Polyethylene Glycol 3350 Pkt 17 Gm) 17 gm PO DAILY [facility] Last Admin: 09/29/25 05:25 Dose: Not Given Senna (Sennosides 8.6 Mg Tablet) 17.2 mg PO BEDTIME [facility] Last Admin: 09/28/25 20:36 Dose: Not Given Senna/Docusate Sodium (Sennosides-Docusate Tablet) 1 tab PO BID [facility] Last Admin: 09/29/25 05:23 Dose: Not Given Sevelamer Carbonate (Sevelamer 800 Mg Tablet) 800 mg PO TID [facility] Last Admin: 09/29/25 05:25 Dose: Not Given Vitals/I&O/Wt Last Vital Signs Temp 97.9 F 09/29/25 04:00 Pulse 65 09/29/25 04:00 Resp 19 H 09/29/25 04:00 BP 96/59 09/29/25 04:00 Pulse Ox 95 09/29/25 04:00 O2 Del Method Nasal Cannula 09/29/25 04:00 O2 Flow Rate 2 09/29/25 00:42 FiO2 1 09/20/25 19:28 09/28/25 09/28/25 09/29/25 14:59 22:59 06:59 Intake Total 300 / 300 500 / 800 340 / 1140 Output Total 2750 / 2750 100 / 2850 Balance 300 / 300 -2250 / -1950 240 / -1710 Weight last 48 hrs Weight 93.6 kg Weight 94.4 kg Weight 91.535 kg Physical Exam 2 Narrative: Vital signs noted. HEENT normocephalic atraumatic He is sitting up and has shortness of breath. Neck is supple, appears to have JVP lungs have b/l crackles heart is regular +s1, s2 abdomen is soft positive bowel sounds extremities have improved 2+ edema through the calves. Patient has a left femoral dialysis catheter neuro awake alert oriented x 3 Urinary Catheter Management: Wu: Cath Placed During This Visit: no Reason for Continuing Indwelling Catheter: Acute Urinary Retention or Obstruction Data 09/29/25 03:32 09/29/25 03:32 A&P Assessment and plan 1. Acute kidney injury: 85-year-old man with ST elevation PR, mitral regurgitation ,aortic valve stenosis, heart failure reduced EF status post cardiac catheterization with multiple stents. 1. Acute kidney injury differential diagnosis includes ATN, cardiorenal syndrome with some contrast-induced BRANDYN. At this time patient remains dialysis dependent I am concerned that his femoral catheter is not working well and we will plan on dialysis today and likely tomorrow again then removing femoral catheter. I am concerned that patient's acute kidney injury is not improving as he has cardiorenal syndrome maybe with fluid removal and improvement of cardiac output patient's renal function may improve. 2. heart failure reduced EF and severe mitral regurgitation along with thickened aortic valve with question of aortic stenosis. As per cardiology, attempt dialysis and fluid removal 3. Anemia monitor hemoglobin, if hemoglobin decreases under 9 then consider initiation of epogen 4. Hyponatremia- monitor with dialysis, hyperkalemia low potassium diet please 5. Patient has developed an increased anion gap metabolic acidosis likely from renal failure. Can consider checking a lactic acid level. 6. Hyperphosphatemia -monitor on dialysis and a phosphorus binder. 7. Increased LFTs 8. I am stopping aluminum based medications due to possible toxicity with end- stage renal disease Patient seen and examined using audiovisual equipment with the aid of a nurse patient consented to hemodialysis and to telehealth. Case discussed in detail with the patient and his family Plan: Hemodialysis today ,see above PDMP PDMP Reviewed: Not Reviewed Attestations 2 Medical Necessity Statement*: BRANDYN, CAD, CHF Time Spent in Patient Care: 16 - 35 minutes (>than 50% of time sp ent in counselling and/or direct pt care on unit) . Coding Level of Care Code Acute Code for [facility] Diagnoses Acute kidney injury N17.9
[2025-09-29] MEDS: FUROsemide 10 mg/mL SDV 10mL 60 MG IVP (08:05)
[2025-09-29] MEDS: phenol oral Spray 177 mL 3 SPRAY MUCOUS MEM (08:44)
--- NOTE | 2025-09-29 09:25 | PC.NURSE ---
Patient off the floor to dialysis
--- NOTE | 2025-09-29 11:09 | P.PN_ITS ---
Subjective 2 Subjective: He has been having pain in his mouth, continues to have pain in his swallowing with mostly his tongue hurting, with ulcerations on the tip of the tongue. Apart from that breathing has been comfortable. No chest pain or pressure. Vitals/I&O/Wt Last Vital Signs Temp 97.0 F L 09/29/25 09:54 Pulse 67 09/29/25 09:54 Resp 16 09/29/25 09:54 BP 96/61 09/29/25 09:54 Pulse Ox 97 09/29/25 04:00 O2 Del Method Nasal Cannula 09/29/25 10:00 O2 Flow Rate 1 09/29/25 04:00 FiO2 1 09/20/25 19:28 09/28/25 09/29/25 09/29/25 22:59 06:59 14:59 Intake Total 500 / 800 340 / 1140 100 / 100 Output Total 2750 / 2750 100 / 2850 Balance -2250 / -1950 240 / -1710 100 / 100 Weight last 48 hrs Weight 93.6 kg Weight 94.4 kg Weight 91.535 kg Physical Exam 2 Narrative: Awake alert, pleasant, conversant. Undergoing dialysis via femoral dialysis catheter. Const: COMMON NORMALS: patient oriented x3 and alert GENERAL APPEARANCE: c ooperative ORIENTATION/CONSCIOUSNESS: Yes awake HENMT: COMMON NORMALS: oropharynx normal Neck/C-Spine: COMMON NORMALS: no JVD Resp: COMMON NORMALS: normal respiratory effort and clear to auscultation bilaterally AUSCULTATION: clear to auscultation bilaterally Cardio: COMMON NORMALS: no JVD, regular rhythm, S1 normal heart sound present, S2 normal heart sound present and No murmurs present (Cardio) RHYTHM: regular rhythm HEART SOUNDS: S1 normal heart sound present and S2 normal heart sound present GI: COMMON NORMALS: Normal to inspection, nondistended, normoactive bowel sounds present, Soft to palpation and non-tender PALPATION: Yes Soft to palpation Extremity: COMMON NORMALS: no joint enlargement GENERAL: Yes edema (3+) Neuro: COMMON NORMALS: patient oriented x3 and moves all extremities S ENSORIUM/ORIENTATION: Yes alert Skin: COMMON NORMALS: no rashes or lesions noted GENERAL SKIN EXAM: no rashes or lesions noted Urinary Catheter Management: Wu: Cath Placed During This Visit: no Reason for Continuing Indwelling Catheter: Acute Urinary Retention or Obstruction Data 09/29/25 03:32 09/29/25 03:32 A&P Assessment and plan 1. Dysphagia: Plan: #Acute kidney injury: Acute renal failure, so far without improvement. Possible progression to ESRD. Dialysis today. Monitor for risk of hypotension. Has come off pressor. Reviewed nephrology note. Discussed with night stocker, plan to remove femoral dialysis catheter, with recommendation for tunneled catheter to be placed sometime in the next few days. If transferring for defibrillator, this could be done at an outside facility, followed by dialysis. Discussed with cardiology provider. Discussed with general surgery and anesthesiologist. Discussed with business case analyst. # Oropharyngeal candidiasis: Severe candidiasis with severe odynophagia, has been having difficulty with oral intake. Discussed with speech therapy who did not have very much to offer at current time. Switched to full liquid diet. Phenaseptic spray is added. Continue nystatin. Diflucan as per discussion with him and his daughter. Discussed with cardiology consideration of embolic disease or other causes. There is no floor the mouth or neck swelling or erythema to suggest Prince's angina. Continue aspiration precautions, risk of aspiration. Will avoid lidocaine at this time so as not to increase risk of aspiration. Continue nutritional shakes. # Acute systolic congestive heart failure: With depressed ejection fraction, persistently soft blood pressures, cardiology further considered and discussed with electrophysiology and on discussion agreement regarding benefit of FILM SORTER-D therapy, was also discussed with the patient who is agreeable. At this time he is accepted for transfer for additional arrangements for FILM SORTER-D in [facility]. Reviewed nephrology note. Monitor for risk of hypotension. Additional dialysis today. Permacatheter staying in place for now pending placement of tunneled catheter. Continuing dialysis. Saturating well on room air. Still with significant peripheral edema, although does endorse chronic peripheral edema for which he usually wears compression stockings at home. Flash pulmonary edema on admit # Shock: Blood pressures remain soft, 97/58. Has been off pressor, last received pressor also on 09/27. Caution with medications which may decrease blood pressure. Suspected cardiogenic after acute decrease in ejection fraction after STEMI. Weaned off pressor. Continue to monitor blood pressures. Has been unable to tolerate GDMT. 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 CT of the neck was obtained without evidence of acute abnormality. Follow-up with ENT as outpatient. # Nonrheumatic aortic valve stenosis: Stable, echo reported: Aortic valve is thickened and calcified. Doppler signal is inadequate to assess aortic stenosis. monitor for symptoms #BPH with obstruction/lower urinary tract symptoms: Patient on Wu's catheter, monitor for intake and output. Remove per nursing protocol. # Severe sepsis: Does not appear to have ever had sepsis. Without leukocytosis, afebrile. Initial tachycardia may have been related to his other conditions. Without clear source. Reviewed blood culture, remains negative. Without leukocytosis on prior CBC on review. Has been empirically on ceftriaxone. Will discontinue ceftriaxone. Was accepted to [facility] on discharge planning. Arrangements were being made for continued outpatient dialysis. PDMP PDMP Reviewed: Not Reviewed Attestations 2 Medical Necessity Statement*: Continue admission for assessment of management of acute renal failure, acute systolic CHF, oropharyngeal candidiasis with severe odynophagia, difficulty with oral intake and showman after STEMI, additional comorbidities as above. and High MDM includes amount and/or complexity of data reviewed/ordered [ resulted lab(s)/test(s), ordered lab(s)/test(s) and other healthcare professional discussion] and described risk of complication, morbidity or mortality of management as documented Diagnoses Dysphagia R13.10
--- NOTE | 2025-09-29 12:29 | PC.SOCIAL ---
IMM UPDATED IMM dated and initialed, copy given to patient and copy placed in chart.
--- NOTE | 2025-09-29 12:56 | PC.HD ---
L femoral temporary HD catheter dressing changed. New dressing was applied yesterday, but today was noted to be saturated with blood. Site was noted to have some slight oozing from insertion site. No s/s of infection noted. Area cleansed well with Chloraprep, triple antibiotic ointment applied to catheter insertion site, and Covaderm applied. Patient tolerated well.
[2025-09-29] MEDS: heparin 5,000 unit/mL INJ 1 mL 5000 UNIT SUBCUT (13:09)
--- NOTE | 2025-09-29 14:19 | P.DS_ITS ---
Discharge Providers Date of Admission: 09/16/25 09:11 Date of Discharge: September 29, 2025 Attending Provider at Admission: Richar Dobbins M.D Attending Provider at Discharge: Richar Dobbins M.D Consults: Hospitalist, nephrology Primary Care Provider: Brandon Lopez MD Diagnoses at Discharge Discharge Diagnosis 1. Dysphagia: Details from hospital stay: This a very pleasant 85-year-old gentleman past medical history of hypertension, CAD, status post CABG in 2011 who came to the hospital with nausea and abdominal discomfort. This abdominal pain was radiating to the chest he was short of breath. He had had a recent trip to [place]. CT scan performed did not reveal reveal PE. First EKG did not have ST elevation on it repeat EKG showed ST elevation in septal anterior and anterior lateral leads [employer] Representative was emergently activated. Patient was taken to the [facility] Representative and found to have saphenous vein graft RCA moderate 56 the percent stenosis, saphenous vein graft to diagonal had long serial stenosis status post PCI with 3 stents, saphenous vein graft to LAD was subtotally occluded with thrombus in it status post PCI with 2 stents. Post stenting he developed cardiogenic shock, requiring Levophed. Renal function did not return and he did required hemodialysis. A temporary catheter was placed. Patient will need a permanent dialysis catheter at this time per nephrology due to renal function has not returned. His EF is reduced at 34%. He has a wide QRS complex with QRS measuring 209 ms. We cannot put him on goal-directed medical therapy due to the hypotension that he experiences. We discussed this case with Dr. Lorenza CANDELARIO at [facility]. Patient may benefit from COMPOSITE ENGINEER-D. Reason for Visit Reason for Visit: ABD PAIN/ Chest pain Physical Exam Narrative: General: No apparent distress HENMT: normoceophalic Muskuloskeletal: Full ROM Respiratory: Normal respiratory effort, clear on the left but right lower anterior lobe diminished, no use of accessory muscles Cardio: No JVD, regular rate, regular rhythm, S1 S2 normal, no murmurs, peripheral pulses 2+ radial palpated bilaterally GI: Normal to inspection, nondistended Extremities: Full ROM, normal, normal capillary refill, no cyanosis or edema Neuro: Alert and oriented x4 Psych: Affect normal, denies suicidal ideation, mental status grossly normal Skin: Right groin slight bruising w/o evidence of hematoma, soft Urinary Catheter Management: Wu: Cath Placed During This Visit: no Reason for Continuing Indwelling Catheter: Acute Urinary Retention or Obstruction Discharge Data Studies Completed and Pending Completed Studies During Hospitalization Category Date Time Status CT Angio Chest + Abdomen Pelvis w/ contrast; 02108 + Cat Scan 09/16/25 05:[address] abdomen pelvis wo con [id number] Routine Cat Scan 09/21/25 06:[address] neck wo con [id number] Routine Cat Scan 09/27/25 16:20 Completed CXRP [XR chest 1V portable [id number]] Stat Exams 09/17/25 17:31 Completed FL barium swallow modifd [id number] Routine Exams 09/22/25 10:54 Completed XR KUB portable [id number] Routine Exams 09/20/25 09:37 Completed XR abdomen 1V* [id number] Routine Exams 09/25/25 08:47 Completed XR chest 1V portable [id number] Routine Exams 09/16/25 10:43 Completed XR chest 1V portable [id number] Routine Exams 09/17/25 08:35 Completed XR chest 1V portable [id number] Routine Exams 09/20/25 10:51 Completed XR chest 1V portable [id number] Stat Exams 09/16/25 05:58 Completed CV. echo complete* [id number] Routine Ultrasound 09/16/25 10:51 Completed CV. echo complete* [id number] Routine Ultrasound 09/20/25 09:37 Completed Pending at discharge Category Date Time Status UNDER PRESSER request for service Stat Exams 09/16/25 07:33 Taken Comprehensive Metabolic Panel AM LABS Lab 09/30/25 04:00 Ordered Comprehensive Metabolic Panel AM LABS Lab 09/30/25 04:00 Ordered Comprehensive Metabolic Panel AM LABS Lab 10/01/25 04:00 Ordered Magnesium AM LABS Lab 09/30/25 04:00 Ordered Magnesium AM LABS Lab 10/01/25 04:00 Ordered Phosphorus AM LABS Lab 09/30/25 04:00 Ordered Phosphorus AM LABS Lab 10/01/25 04:00 Ordered Radiology Impressions Chest/Abdomen/Pelvis CT 09/16/25 05:58 IMPRESSION: 1. No acute intrathoracic pathology. 2. Aneurysmal dilatation of the ascending thoracic aorta. IMPRESSION: No acute findings. KUB X-Ray 09/20/25 09:37 IMPRESSION: 1. No acute abdominal process. 2. A moderate amount of retained stool and gas in the colon. Chest X-Ray 09/20/25 10:51 IMPRESSION: 1. New left-sided PICC line ending in the lower one third of the SVC. 2. Significantly improved pulmonary infiltrates since the previous study. Cardiac enlargement unchanged. Abdomen/Pelvis CT 09/21/25 06:10 IMPRESSION: 1. Ill-defined complex collection in the right groin may represent a hematoma. Correlate for recent vascular access. 2. Diffuse bladder wall thickening is likely related to chronic outlet obstruction. Underlying cystitis not excluded. 3. Prostatomegaly. Correlate with PSA levels. 4. Small bilateral pleural effusions with adjacent atelectasis. 5. Ill-defined ground-glass opacities in the lung bases, krrid-xgxoumt-annl-left, may represent atypical infection in the correct clinical setting. 6. 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 Follow-up imaging in 5 years is recommended. Modified Barium Swallow 09/22/25 10:54 IMPRESSION: 1. Abnormal oropharyngeal phase of swallowing. See above discussion. 2. No aspiration or penetration. 3. The barium tablet was retained in a cystic structure along the left margin of the distal esophagus which could be a diverticulum but is most likely a paraesophageal hiatal hernia. Abdomen X-Ray 09/25/25 08:47 IMPRESSION: Improved bowel gas pattern with no acute abnormality. Neck CT 09/27/25 16:20 IMPRESSION: 1. No CT evidence of acute abnormality. 2. Bilateral pleural effusions incompletely assessed on this examination. Laboratory Results WBC 14.67 10^3/uL (3.29-11.43) H 09/29/25 03:32 RBC 3.08 10^6/uL (3.85-5.65) L 09/29/25 03:32 Hgb 9.90 g/dL (11.27-16.99) L 09/29/25 03:32 Hct 29.9 % (37-53) L 09/29/25 03:32 MCV 97.1 fl (82-101) 09/29/25 03:32 MCH 32.1 pg (27-33) 09/29/25 03:32 MCHC 33.1 g/dL (30-55) 09/29/25 03:32 RDW 14.3 % (12.1-15.1) 09/29/25 03:32 Plt Count 96 10^3/cmm (157-399) L 09/29/25 03:32 MPV 14.3 fL (7.4-10.4) H 09/29/25 03:32 Neut % (Auto) 82.9 % 09/29/25 03:32 Lymph % (Auto) 6.3 % 09/29/25 03:32 [place] % (Auto) 8.9 % 09/29/25 03:32 Eos % (Auto) 0.4 % 09/29/25 03:32 Baso % (Auto) 0.3 % 09/29/25 03:32 Neut # (Auto) 12.17 10^3/uL (1.8-7.7) H 09/29/25 03:32 Lymph # (Auto) 0.9 10^3/uL (0.8-4.8) 09/29/25 03:32 [place] # (Auto) 1.3 10^3/uL (0.2-0.9) H 09/29/25 03:32 Eos # (Auto) 0.1 10^3/uL (0.0-0.8) 09/29/25 03:32 Baso # (Auto) 0.0 10^3/uL (0.0-0.1) 09/29/25 03:32 Nucleated RBC % (auto) 0.9 % 09/29/25 03:32 Nucleated RBCs # 0.1 /100WBC 09/29/25 03:32 PT 13.90 SECONDS (12.1-14.9) 09/22/25 11:12 INR 1.00 (0.8-1.2) 09/22/25 11:12 APTT 32.6 SECONDS (23.9-36.7) 09/22/25 11:12 Specimen Type Arterial 09/17/25 15:17 Sample Site Radial, right 09/17/25 15:17 ABG pH 7.41 (7.35-7.45) 09/17/25 15:17 ABG pCO2 31.1 mmHg (35-45) L 09/17/25 15:17 ABG pO2 98.3 mmHg (80.0-100.0) 09/17/25 15:17 ABG PO2/FiO2 Ratio 163 09/17/25 15:17 ABG HCO3 19.8 mmol/L (22-26) L 09/17/25 15:17 ABG O2 Saturation 97.9 09/17/25 15:17 ABG Base Excess -3.8 mmol/L (-2.0-2.0) L 09/17/25 15:17 ABG Methemoglobin 1.2 g/dL 09/25/25 10:10 Aashish Test Pos 09/17/25 15:17 A-a O2 Gradient 38.1 mmHg (5-10) H 09/17/25 15:17 Hematocrit 39.6 % (42-52) L 09/17/25 15:17 Hgb O2 Saturation 99.4 % (95-100) 09/17/25 15:17 Carboxyhemoglobin < 0.3 %THgb (0.4-20.1) L 09/17/25 15:17 Methemoglobin < 0.0 % (0.4-1.5) L 09/17/25 15:17 Total Hemoglobin 12.9 g/dL (14-18) L 09/17/25 15:17 Sodium 136.0 mmol/L (131-143) 09/17/25 15:17 Potassium 4.1 mmol/L (3.5-5.0) 09/17/25 15:17 Glucose 225.0 mg/dL (70-115) H 09/17/25 15:17 Ionized Calcium 1.2 mmol/L (1.1-1.4) 09/17/25 15:17 O2 Delivery Device Bipap 09/17/25 15:17 FiO2 60.0 % 09/17/25 15:17 Landmen ID Gd 09/17/25 15:17 Sodium 128 mmol/L (136-145) L 09/29/25 03:32 Potassium 5.4 mmol/L (3.5-5.1) H 09/29/25 03:32 Chloride 92 mmol/L (98-107) L 09/29/25 03:32 Carbon Dioxide 19 mmol/L (22-29) L 09/29/25 03:32 Anion Gap 22.4 (5-19) H 09/29/25 03:32 BUN 73 mg/dL (8-23) H 09/29/25 03:32 Creatinine 4.8 mg/dL (0.7-1.2) H 09/29/25 03:32 GFR Calculation Not Reportable 09/29/25 03:32 Glucose 147 mg/dL (65-115) H 09/29/25 03:32 POC Glucose 171 mg/dL (70-110) H 09/21/25 20:07 Estimat Average Glucose 120 09/16/25 06:44 Hemoglobin A1c 5.8 % (4.0-6.0) 09/16/25 06:44 Lactate 2.8 mmol/L (0.5-2.2) H 09/19/25 13:50 Calculated Osmolality 290 mOsm/kg (285-295) 09/29/25 03:32 Calcium 8.5 mg/dL (8.5-10.5) 09/29/25 03:32 Phosphorus 7.4 mg/dL (2.5-4.5) H 09/29/25 03:32 Magnesium 2.5 mg/dL (1.7-2.3) H 09/29/25 03:32 Total Bilirubin 1.2 mg/dL (0.15-1.2) 09/29/25 03:32 AST 176 U/L (0-40) H 09/29/25 03:32 ALT 244 U/L (0-41) H 09/29/25 03:32 Alkaline Phosphatase 551 U/L (40-130) H 09/29/25 03:32 Lactate Dehydrogenase 1148 U/L (135-225) H 09/17/25 03:48 Troponin T 5th Gen ng/L 9471 ng/L (0-15) H* 09/26/25 07:11 Troponin T Baseline 21 ng/L (0-15) H 09/16/25 06:22 Troponin T 120 Minute 357.0 ng/L (0-15) H 09/16/25 10:37 Delta Troponin T 336.0 ABS# (0-10) H* 09/16/25 10:37 Troponin T Hi Sens 6Hr 3589 ng/L (0-15) H 09/16/25 15:53 Troponin T Hi Sens 6Hr Delta 3568 ng/L (0-12) H* 09/16/25 15:53 NT-Pro-B Natriuret Pep 35494 pg/mL (0-450) H 09/17/25 14:57 Total Protein 6.6 g/dL (6.6-8.7) 09/29/25 03:32 Albumin 3.8 g/dL (3.5-5.2) 09/29/25 03:32 Globulin 2.8 g/dL (1.3-4.6) 09/29/25 03:32 Triglycerides 131 mg/dL (0-150) 09/16/25 06:44 Cholesterol 235 mg/dL (0-200) H 09/16/25 06:44 LDL Cholesterol, Calc 147 mg/dL (50-129) H 09/16/25 06:44 HDL Cholesterol 62 mg/dL (60-100) 09/16/25 06:44 LDL/HDL Ratio 2.37 RATIO (0.00-3.22) 09/16/25 06:44 Cholesterol/HDL Ratio 3.79 mg/dL (1.0-5.00) 09/16/25 06:44 Lipase 82 U/L (13-60) H 09/27/25 05:50 TSH 2.67 uIU/mL (0.27-4.20) 09/16/25 06:44 Urine Color [place] (Yellow) A 09/17/25 11: Urine Appearance Turbid (CLEAR) A 09/17/25 11: Urine pH 5.0 (5-7) 09/17/25 11: Ur Specific [place] 1.068 (1.005-1.030) H 09/17/25 11: Urine Protein 3+ (Negative) A 09/17/25 11: Urine Glucose (UA) Trace (Normal) H 09/17/25 11:27 Urine Ketones Negative (Negative) 09/17/25 11: Urine Blood 3+ (Negative) A 09/17/25 11: Urine Nitrate Negative (Negative) 09/17/25 11: Urine Bilirubin Negative (Negative) 09/17/25 11: Urine Urobilinogen 0.2 mg/dL (Negative) 09/17/25 11: Ur Leukocyte Esterase 1+ (Negative) A 09/17/25 11: Urine RBC >100 /hpf (0-2) H 09/17/25 11:27 Urine WBC 51-100 /hpf (0-5) H 09/17/25 11:27 Ur Squamous Epith Cells 0-5 /hpf (0-5) 09/17/25 11:27 Amorphous Sediment Not Reportable 09/17/25 11:27 Urine Bacteria 1+ /hpf (NONE) H 09/17/25 11:27 Hyaline Casts 27.14 /lpf 09/17/25 11:27 Adenovirus (PCR) Not detected (NOT DETECT) 09/19/25 14:50 C. pneumoniae DNA (PCR) Not detected (NOT DETECT) 09/19/25 14:50 Coronavirus 229E (PCR) Not detected (NOT DETECT) 09/19/25 14:50 Hep Bs Antigen Non-reactive (Nonreactive) 09/17/25 03:48 Hep Bs Antibody < 3.5 (11.5-1000) L 09/17/25 03:48 Human Metapneumovir PCR Not detected (NOT DETECT) 09/19/25 14:50 Influenza A (H1) PCR Not detected (NOT DETECT) 09/19/25 14:50 Influenza A (PCR) Negative (Negative) 09/19/25 14:50 Influ A (H1/09) PCR Not detected (NOT DETECT) 09/19/25 14:50 Influenza A (H3) PCR Not detected (NOT DETECT) 09/19/25 14:50 Influenza Type A (PCR) Not detected (NOT DETECT) 09/19/25 14:50 Influenza Type B (PCR) Negative (Negative) 09/19/25 14:50 Influenza Type B (PCR) Not detected (NOT DETECT) 09/19/25 14:50 M. pneumoniae (PCR) Not detected (NOT DETECT) 09/19/25 14:50 Parainfluenza 1 (PCR) Not detected (NOT DETECT) 09/19/25 14:50 Parainfluenza 2 (PCR) Not detected (NOT DETECT) 09/19/25 14:50 Parainfluenza 3 (PCR) Not detected (NOT DETECT) 09/19/25 14:50 Parainfluenza 4 (PCR) Not detected (NOT DETECT) 09/19/25 14:50 RSV (PCR) Negative (Negative) 09/19/25 14:50 RSV Type A (PCR) Not detected (NOT DETECT) 09/19/25 14:50 RSV Type B (PCR) Not detected (NOT DETECT) 09/19/25 14:50 Entero/Rhino (PCR) Not detected (NOT DETECT) 09/19/25 14:50 SARS-CoV-2 (PCR) Negative (Negative) 09/19/25 14:50 SARS-CoV-2 (PCR) Not detected (NOT DETECT) 09/19/25 14:50 Procedures Performed W111/25/2024 With the patient in a supine position after a timeout was conducted the left groin was prepped and draped in usual sterile fashion. Initially anesthesia team started the procedure and attempted cannulation of the left femoral vein while the wire was able to be threaded into the vein we were not able to identified with ultrasound, at this point I offer my assistance to continue with the procedure. I was able to identify the left femoral vein with ultrasound, an 18-gauge needle was used to cannulate the vein, the cannulation was difficult as the vein layed right behind the femoral artery. A wire was advanced into the vein and position was verified with ultrasound. A 0.5 cm incision was made in the skin, serial sizes of dilators were used to create a tract following the wire. I then advanced a dual-lumen 20 cm dialysis catheter over the wire into the vein, I then remove the wire leaving the catheter in place. The catheter was flushing well and growing well in both lumens with no flow to allow for dialysis. Catheter was fixed in place and tested again and was working fine. Biopatch and sterile dressing was applied. At the end of the procedure patient tolerated well remained in the ICU in stable condition Vitals Last Vital Signs Temp 97.3 F L 09/29/25 12:54 Pulse 70 09/29/25 12:54 Resp 21 H 09/29/25 13:09 BP 97/58 09/29/25 12:54 Pulse Ox 97 09/29/25 04:00 O2 Del Method Nasal Cannula 09/29/25 10:00 O2 Flow Rate 1 09/29/25 04:00 FiO2 1 09/20/25 19:28 Discharge Plan Discharge Patient Disposition: Home Condition: Stable Prescriptions: No Action amlodipine 5 mg tablet 10 mg PO DAILY Qty: 14 0RF omeprazole 20 mg capsule,delayed release(DR/EC) 20 mg PO BID PRN (Reason: Acid Reflux) hydrocodone-acetaminophen 7.5-325 mg tablet 1 tab PO Q8H PRN (Reason: Pain) furosemide 40 mg tablet 40 mg PO DAILY nitroglycerin [Nitrostat] 0.4 mg Tablet, Sublingual 0.4 mg SUBLINGUAL Q5M PRN (Reason: Chest Pain) ketoconazole 2 % shampoo See Rx Instructions .ROUTE .COMPLEX Rx Instructions: Lather onto SCALP and face two TO three times weekly, allow TO sit FOR FIVE minutes THEN RINSE lisinopril 20 mg tablet 20 mg PO BID Referrals: Yanely Fields FNP [Nurse Practitioner, Cardiology] - 10/16/25 1:00 pm Brandon Lopez MD [Primary Care Provider, Family Practice] - 10/05/25 9:45 am Patient Instructions: Coronary Angioplasty (DC), Acute Wound Care (DC), Abdominal Pain (ED), Opioid Safety, Post Anesthesia Care, Patient Portal & Khushi Instructions Coding Level of Care Code Acute Code for Chg Fwd Diagnoses Dysphagia R13.10
--- NOTE | 2025-09-29 14:38 | PM.PN ---
Subjective Subjective: He has been having pain in his mouth, continues to have pain in his swallowing with mostly his tongue hurting, with ulcerations on the tip of the tongue. Apart from that breathing has been comfortable. No chest pain or pressure. Medications: Reviewed: Yes Medication Review Details: Current Medications Acetaminophen (Acetaminophen 325 Mg Tablet) 650 mg PO Q6H PRN PRN Reason: MILD PAIN Last Admin: 09/23/25 01:48 Dose: 650 mg Al Hydrox/Mg Hydrox/Simethicone (Pglh-Zfx-Jrqfeymje-Hoda 30 Ml Udc) 30 ml PO Q15M PRN PRN Reason: INDIGESTION Al Hydrox/Mg Hydrox/Simethicone (Ckli-Byq-Xcavxtxge-Hoda 30 Ml Udc) 30 ml PO Q4H [facility] Last Admin: 09/29/25 05:00 Dose: Not Given Alteplase, Recombinant (Alteplase 1 Mg/Ml Sdv 2 Ml) 2 mg INTRACATH PRN PRN PRN Reason: DIALYSIS USE ONLY Amiodarone HCl (Amiodarone 200 Mg Tablet) 400 mg PO DAILY [facility] Last Admin: 09/29/25 05:22 Dose: 400 mg Aspirin (Aspirin 81 Mg Ec Tablet) 81 mg PO DAILY [facility] Last Admin: 09/29/25 05:22 Dose: 81 mg Atropine Sulfate (Atropine 1 Mg/Ml Sdv 1 Ml) 0.5 mg IVP PRN PRN PRN Reason: Symptomatic bradycardia Budesonide (Budesonide 0.5 Mg/2 Ml Neb) 0.5 mg INHALATION BID.RESPIRATORY PRN PRN Reason: SHORTNESS OF BREATH Clopidogrel Bisulfate (Clopidogrel 75 Mg Tablet) 75 mg PO DAILY [facility] Last Admin: 09/29/25 05:23 Dose: 75 mg Docusate Sodium (Docusate Sodium 100 Mg Capsule) 100 mg PO DAILY PRN PRN Reason: CONSTIPATION Last Admin: 09/20/25 12:03 Dose: 100 mg Furosemide (Furosemide 10 Mg/Ml Sdv 10ml) 60 mg IVP Q12H [facility] Last Admin: 09/28/25 20:34 Dose: 60 mg Heparin Sodium (Porcine) (Heparin 5,000 Unit/Ml Inj 1 Ml) 5,000 unit SUBCUT Q12H [facility] Last Admin: 09/28/25 20:35 Dose: 5,000 unit Nitroglycerin/Dextrose (Nitroglycerin Drip) 50 mg in 250 mls @ 0 mls/hr IV .Q0M LAURA; Protocol Last Titration: 09/17/25 12:33 Dose: 0 mcg/min, 0 mls/hr Sodium Chloride (Sodium Chloride 0.9%) 1,000 mls @ 0 mls/hr IV .Q0M PRN PRN Reason: hypotension or symptomatic Albumin Human (Albumin) 12.5 gm in 50 mls @ 60 mls/hr IV PRN PRN PRN Reason: Hypotension and/or symptomatic Fluconazole (Diflucan Premix) 200 mg in 100 mls @ 100 mls/hr IV Q24H [facility] Last Infusion: 09/28/25 23:19 Dose: Infused Ipratropium [place] (Ipratropium 0.5 Mg/2.5 Ml Neb) 0.5 mg INHALATION Q6H.RESP PRN PRN Reason: SHORTNESS OF BREATH Last Admin: 09/29/25 00:33 Dose: 0.5 mg Levalbuterol HCl (Levalbuterol 1.25 Mg/3 Ml Neb) 1.25 mg INHALATION Q6H.RESP PRN PRN Reason: SHORTNESS OF BREATH Last Admin: 09/29/25 00:33 Dose: 1.25 mg Magnesium Hydroxide (Magnesium Hydroxide 30 Ml Udc) 30 ml PO DAILY PRN PRN Reason: CONSTIPATION Metoclopramide HCl (Metoclopramide 5 Mg/Ml Sdv 2 Ml) 5 mg IVP Q6H PRN PRN Reason: NAUSEA AND VOMITING Last Admin: 09/28/25 06:00 Dose: 5 mg Midodrine (Midodrine 5 Mg Tablet) 10 mg PO TID [facility] Last Admin: 09/29/25 05:22 Dose: 10 mg Morphine Sulfate (Morphine 4 Mg/Ml Sdv 1 Ml) 4 mg IVP Q4H PRN PRN Reason: SEVERE PAIN Last Admin: 09/29/25 01:05 Dose: 4 mg Naloxone HCl (Naloxone 0.4 Mg/Ml Sdv) 0.1 mg IVP Q2M PRN PRN Reason: RESPIRATORY RATE < 8/MIN Nitroglycerin (Nitroglycerin 0.4 Mg Sublingual Tablet) 0.4 mg SUBLINGUAL Q5M PRN PRN Reason: CHEST PAIN Non-Formulary Medication ( Omeprazole 20 Mg Caps) 20 each PO BID [facility] Last Admin: 09/29/25 05:25 Dose: 20 each Nystatin (Nystatin 100,000 Unit/Ml Udc 5 Ml) 200,000 unit PO QID [facility] Last Admin: 09/29/25 05:23 Dose: 200,000 unit Phenol (Phenol Oral [place] 177 Ml) 3 spray MUCOUS MEM Q2H PRN PRN Reason: SORE THROAT Last Admin: 09/25/25 00:25 Dose: 3 spray Polyethylene Glycol (Polyethylene Glycol 3350 Pkt 17 Gm) 17 gm PO DAILY [facility] Last Admin: 09/29/25 05:25 Dose: Not Given Senna (Sennosides 8.6 Mg Tablet) 17.2 mg PO BEDTIME [facility] Last Admin: 09/28/25 20:36 Dose: Not Given Senna/Docusate Sodium (Sennosides-Docusate Tablet) 1 tab PO BID [facility] Last Admin: 09/29/25 05:23 Dose: Not Given Sevelamer Carbonate (Sevelamer 800 Mg Tablet) 800 mg PO TID [facility] Last Admin: 09/29/25 05:25 Dose: Not Given Vitals/I&O/Wt Last Vital Signs Temp 97.3 F L 09/29/25 12:54 Pulse 70 09/29/25 12:54 Resp 21 H 09/29/25 13:09 BP 97/58 09/29/25 12:54 Pulse Ox 97 09/29/25 04:00 O2 Del Method Nasal Cannula 09/29/25 10:00 O2 Flow Rate 1 09/29/25 04:00 FiO2 1 09/20/25 19:28 09/28/25 09/29/25 09/29/25 22:59 06:59 14:59 Intake Total 500 / 800 340 / 1140 800 / 800 Output Total 2750 / 2750 100 / 2850 2150 / 2150 Balance -2250 / -1950 240 / -1710 -1350 / -1350 Weight last 48 hrs Weight 201 lb 4.513 oz Weight 206 lb 5.643 oz Weight 208 lb 1.862 oz Weight 201 lb 12.8 oz Physical Exam Const: OTHER: GENERAL: Patient is alert, awake and oriented x3. HEART: Regular S1 and S2. No murmur, rub or gallop. LUNGS: Clear to auscultate bilaterally. CENTRAL NERVOUS SYSTEM: Grossly nonfocal. EXTREMITIES: Lower extremities with out edema bilaterally. Urinary Catheter Management: Wu: Cath Placed During This Visit: no Reason for Continuing Indwelling Catheter: Acute Urinary Retention or Obstruction Data 09/29/25 03:32 09/29/25 03:32 A&P Assessment and plan 1. Dysphagia: Plan: Patient is now off of Levophed. Stable from a cardiac standpoint. He will most likely need SHOP DIRECTOR-D in the future. He is getting dialysis today. Patient has planned tunneled dialysis catheter to be placed Thursday or Thursday. Have considered transferring for defibrillator placement if patient is accepted, but waiting to hear back at this time. Continue plavix, aspirin, statin, midodrine 10 tid. PDMP PDMP Reviewed: Not Reviewed Coding Level of Care Code Acute Code for Chg Fwd Diagnoses Dysphagia R13.10
--- NOTE | 2025-09-29 14:40 | PM.TDS ---
Transfer Summary Providers Date of Admission: 09/16/25 09:11 <Kerry Tan NP - Last Filed: 09/29/25 14:53> Date of Discharge/Transfer: 09/29/25 <Kerry Tan NP - Last Filed: 09/29/25 14:53> 09/29/25 <Esha Orellana MD - Last Filed: 09/29/25 15:14> Attending Provider at Admission: Richar Dobbins M.D <Kerry Tan NP - Last Filed: 09/29/25 14:53> Attending Provider at Transfer: Richar Dobbins M.D <Kerry Tan NP - Last Filed: 09/29/25 14:53> Primary Care Provider: Brandon Lopez MD <Kerry Tan NP - Last Filed: 09/29/25 14:53> Transfer Plans: Anticipated date of transfer: 09/29/25. <Kerry Tan NP - Last Filed: 09/29/25 14:53> Anticipated date of transfer: 09/29/25. <Esha Orellana MD - Last Filed: 09/29/25 15:14> Additional transfer facility information: Transfer to [place], [place] . <Kerry Tan NP - Last Filed: 09/29/25 14:53> Diagnoses at Discharge Discharge Diagnosis 1. Dysphagia: Details from hospital stay: Patient has thrush and sore on the tongue <Esha Orellana MD - Last Filed: 09/29/25 15:14> Reason for Visit Reason for Visit ABD PAIN/ Chest pain <Kerry Tan NP - Last Filed: 09/29/25 14:53> Hospital Course Hospital Course This a very pleasant 85-year-old gentleman past medical history of hypertension, CAD, status post CABG in 2012 who came to the hospital with nausea and abdominal discomfort. This abdominal pain was radiating to the chest he was short of breath. He had had a recent trip to [place]. CT scan performed did not reveal reveal PE. First EKG did not have ST elevation on it repeat EKG showed ST elevation in septal anterior and anterior lateral leads [employer] was emergently activated. Patient was taken to the [facility] and found to have saphenous vein graft RCA moderate 56 the percent stenosis, saphenous vein graft to diagonal had long serial stenosis status post PCI with 3 stents, saphenous vein graft to LAD was subtotally occluded with thrombus in it status post PCI with 2 stents. Post stenting he developed cardiogenic shock, requiring Levophed. Renal function did not return and he did required hemodialysis. A temporary catheter was placed. Patient will need a permanent dialysis catheter at this time per nephrology due to renal function has not returned. His EF is reduced at 34% with diffuse hypokinesis of the anterior wall and basal inferior wall segments. Severe Mitral regurgitation is seen. He has a wide QRS complex with QRS measuring 209 ms. We cannot put him on goal-directed medical therapy due to the hypotension that he experiences. We discussed this case with Dr. Lorenza CANDELARIO at [facility]. Patient may benefit from SEAM RUBBER-D to improve cardiorenal function as well as mitraclip from heart failure perspective. Hospital medications under current use #1 Clopidogrel 75 mg p.o. daily #2 Aspirin 81 mg p.o. daily statin #3 Statin is on hold because of high liver function #4 Amiodarone is 400 daily because of multiple sustained ventricular tachycardia #5 Midodrine 10 mg 3 times daily #6 furosemide 60 mg IV twice daily <Kerry Tan NP - Last Filed: 09/29/25 14:53> Physical Exam Narrative: General: No apparent distress HENMT: normoceophalic Muskuloskeletal: Full ROM Respiratory: Normal respiratory effort, clear on the left but right lower anterior lobe diminished, no use of accessory muscles Cardio: No JVD, regular rate, regular rhythm, S1 S2 normal, II/ systolic murmur, peripheral pulses 2+ radial palpated bilaterally GI: Normal to inspection, nondistended Extremities: Full ROM, normal, normal capillary refill, no cyanosis or edema Neuro: Alert and oriented x4 Psych: Affect normal, denies suicidal ideation, mental status grossly normal Skin: Right groin slight bruising w/o evidence of hematoma, soft <Kerry Tan NP - Last Filed: 09/29/25 14:53> Urinary Catheter Management: Wu: Cath Placed During This Visit: no <Kerry Tan NP - Last Filed: 09/29/25 14:53> Cath Placed During This Visit: no <Esha Orellana MD - Last Filed: 09/29/25 15:14> Reason for Continuing Indwelling Catheter: Acute Urinary Retention or Obstruction <Kerry Tan NP - Last Filed: 09/29/25 14:53> TS Data Studies Completed and Pending Pending at discharge Category Date Time Status 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 request for service Stat Exams 09/16/25 07:33 Taken Comprehensive Metabolic Panel AM [facility] Lab 09/30/25 04:00 Ordered Comprehensive Metabolic Panel AM [facility]S Lab 09/30/25 04:00 Ordered Comprehensive Metabolic Panel AM [facility] Lab 10/01/25 04:00 Ordered Magnesium AM [facility]S Lab 09/30/25 04:00 Ordered Magnesium AM LABS Lab 10/01/25 04:00 Ordered Phosphorus AM LABS Lab 09/30/25 04:00 Ordered Phosphorus AM LABS Lab 10/01/25 04:00 Ordered <Kerry Tan NP - Last Filed: 09/29/25 14:53> Completed Studies During Hospitalization Category Date Time Status CT Angio Chest + Abdomen Pelvis w/ contrast; 17041 + Cat Scan 09/16/25 05:[address] abdomen pelvis wo con [id number] Routine Cat Scan 09/21/25 06:[address] neck wo con [id number] Routine Cat Scan 09/27/25 16:20 Completed CXRP [XR chest 1V portable [id number]] Stat Exams 09/17/25 17:31 Completed [place] barium swallow modifd [id number] Routine Exams 09/22/25 10:54 Completed XR KUB portable [id number] Routine Exams 09/20/25 09:37 Completed XR abdomen 1V* [id number] Routine Exams 09/25/25 08:47 Completed XR chest 1V portable [id number] Routine Exams 09/16/25 10:43 Completed XR chest 1V portable [id number] Routine Exams 09/17/25 08:35 Completed XR chest 1V portable [id number] Routine Exams 09/20/25 10:51 Completed XR chest 1V portable [id number] Stat Exams 09/16/25 05:58 Completed CV. echo complete* [id number] Routine Ultrasound 09/16/25 10:51 Completed CV. echo complete* [id number] Routine Ultrasound 09/20/25 09:37 Completed <Kerry Tan NP - Last Filed: 09/29/25 14:53> Laboratory Last Values WBC 14.67 10^3/uL (3.29-11.43) H 09/29/25 03:32 RBC 3.08 10^6/uL (3.85-5.65) L 09/29/25 03:32 Hgb 9.90 g/dL (11.27-16.99) L 09/29/25 03:32 Hct 29.9 % (37-53) L 09/29/25 03:32 MCV 97.1 fl (82-101) 09/29/25 03:32 MCH 32.1 pg (27-33) 09/29/25 03:32 MCHC 33.1 g/dL (30-55) 09/29/25 03:32 RDW 14.3 % (12.1-15.1) 09/29/25 03:32 Plt Count 96 10^3/cmm (157-399) L 09/29/25 03:32 MPV 14.3 fL (7.4-10.4) H 09/29/25 03:32 Neut % (Auto) 82.9 % 09/29/25 03:32 Lymph % (Auto) 6.3 % 09/29/25 03:32 [place] % (Auto) 8.9 % 09/29/25 03:32 Eos % (Auto) 0.4 % 09/29/25 03:32 Baso % (Auto) 0.3 % 09/29/25 03:32 Neut # (Auto) 12.17 10^3/uL (1.8-7.7) H 09/29/25 03:32 Lymph # (Auto) 0.9 10^3/uL (0.8-4.8) 09/29/25 03:32 [place] # (Auto) 1.3 10^3/uL (0.2-0.9) H 09/29/25 03:32 Eos # (Auto) 0.1 10^3/uL (0.0-0.8) 09/29/25 03:32 Baso # (Auto) 0.0 10^3/uL (0.0-0.1) 09/29/25 03:32 Nucleated RBC % (auto) 0.9 % 09/29/25 03:32 Nucleated RBCs # 0.1 /100WBC 09/29/25 03:32 PT 13.90 SECONDS (12.1-14.9) 09/22/25 11:12 INR 1.00 (0.8-1.2) 09/22/25 11:12 APTT 32.6 SECONDS (23.9-36.7) 09/22/25 11:12 Specimen Type Arterial 09/17/25 15:17 Sample Site Radial, right 09/17/25 15:17 ABG pH 7.41 (7.35-7.45) 09/17/25 15:17 ABG pCO2 31.1 mmHg (35-45) L 09/17/25 15:17 ABG pO2 98.3 mmHg (80.0-100.0) 09/17/25 15:17 ABG PO2/FiO2 Ratio 163 09/17/25 15:17 ABG HCO3 19.8 mmol/L (22-26) L 09/17/25 15:17 ABG O2 Saturation 97.9 09/17/25 15:17 ABG Base Excess -3.8 mmol/L (-2.0-2.0) L 09/17/25 15:17 ABG Methemoglobin 1.2 g/dL 09/25/25 10:10 Aashish Test Pos 09/17/25 15:17 A-a O2 Gradient 38.1 mmHg (5-10) H 09/17/25 15:17 Hematocrit 39.6 % (42-52) L 09/17/25 15:17 Hgb O2 Saturation 99.4 % (95-100) 09/17/25 15:17 Carboxyhemoglobin < 0.3 %THgb (0.4-20.1) L 09/17/25 15:17 Methemoglobin < 0.0 % (0.4-1.5) L 09/17/25 15:17 Total Hemoglobin 12.9 g/dL (14-18) L 09/17/25 15:17 Sodium 136.0 mmol/L (131-143) 09/17/25 15:17 Potassium 4.1 mmol/L (3.5-5.0) 09/17/25 15:17 Glucose 225.0 mg/dL (70-115) H 09/17/25 15:17 Ionized Calcium 1.2 mmol/L (1.1-1.4) 09/17/25 15:17 O2 Delivery Device Bipap 09/17/25 15:17 FiO2 60.0 % 09/17/25 15:17 Parboiler ID Gd 09/17/25 15:17 Sodium 128 mmol/L (136-145) L 09/29/25 03:32 Potassium 5.4 mmol/L (3.5-5.1) H 09/29/25 03:32 Chloride 92 mmol/L (98-107) L 09/29/25 03:32 Carbon Dioxide 19 mmol/L (22-29) L 09/29/25 03:32 Anion Gap 22.4 (5-19) H 09/29/25 03:32 BUN 73 mg/dL (8-23) H 09/29/25 03:32 Creatinine 4.8 mg/dL (0.7-1.2) H 09/29/25 03:32 GFR Calculation Not Reportable 09/29/25 03:32 Glucose 147 mg/dL (65-115) H 09/29/25 03:32 POC Glucose 171 mg/dL (70-110) H 09/21/25 20:07 Estimat Average Glucose 120 09/16/25 06:44 Hemoglobin A1c 5.8 % (4.0-6.0) 09/16/25 06:44 Lactate 2.8 mmol/L (0.5-2.2) H 09/19/25 13:50 Calculated Osmolality 290 mOsm/kg (285-295) 09/29/25 03:32 Calcium 8.5 mg/dL (8.5-10.5) 09/29/25 03:32 Phosphorus 7.4 mg/dL (2.5-4.5) H 09/29/25 03:32 Magnesium 2.5 mg/dL (1.7-2.3) H 09/29/25 03:32 Total Bilirubin 1.2 mg/dL (0.15-1.2) 09/29/25 03:32 AST 176 U/L (0-40) H 09/29/25 03:32 ALT 244 U/L (0-41) H 09/29/25 03:32 Alkaline Phosphatase 551 U/L (40-130) H 09/29/25 03:32 Lactate Dehydrogenase 1148 U/L (135-225) H 09/17/25 03:48 Troponin T 5th Gen ng/L 9471 ng/L (0-15) H* 09/26/25 07:11 Troponin T Baseline 21 ng/L (0-15) H 09/16/25 06:22 Troponin T 120 Minute 357.0 ng/L (0-15) H 09/16/25 10:37 Delta Troponin T 336.0 ABS# (0-10) H* 09/16/25 10:37 Troponin T Hi Sens 6Hr 3589 ng/L (0-15) H 09/16/25 15:53 Troponin T Hi Sens 6Hr Delta 3568 ng/L (0-12) H* 09/16/25 15:53 NT-Pro-B Natriuret Pep 95488 pg/mL (0-450) H 09/17/25 14:57 Total Protein 6.6 g/dL (6.6-8.7) 09/29/25 03:32 Albumin 3.8 g/dL (3.5-5.2) 09/29/25 03:32 Globulin 2.8 g/dL (1.3-4.6) 09/29/25 03:32 Triglycerides 131 mg/dL (0-150) 09/16/25 06:44 Cholesterol 235 mg/dL (0-200) H 09/16/25 06:44 LDL Cholesterol, Calc 147 mg/dL (50-129) H 09/16/25 06:44 HDL Cholesterol 62 mg/dL (60-100) 09/16/25 06:44 LDL/HDL Ratio 2.37 RATIO (0.00-3.22) 09/16/25 06:44 Cholesterol/HDL Ratio 3.79 mg/dL (1.0-5.00) 09/16/25 06:44 Lipase 82 U/L (13-60) H 09/27/25 05:50 TSH 2.67 uIU/mL (0.27-4.20) 09/16/25 06:44 Urine Color [place] (Yellow) A 09/17/25 11: Urine Appearance Turbid (CLEAR) A 09/17/25 11: Urine pH 5.0 (5-7) 09/17/25 11: Ur Specific [place] 1.068 (1.005-1.030) H 09/17/25 11:27 Urine Protein 3+ (Negative) A 09/17/25 11: Urine Glucose (UA) Trace (Normal) H 09/17/25 11: Urine Ketones Negative (Negative) 09/17/25 11:27 Urine Blood 3+ (Negative) A 09/17/25 11:27 Urine Nitrate Negative (Negative) 09/17/25 11: Urine Bilirubin Negative (Negative) 09/17/25 11: Urine Urobilinogen 0.2 mg/dL (Negative) 09/17/25 11:27 Ur Leukocyte Esterase 1+ (Negative) A 09/17/25 11:27 Urine RBC >100 /hpf (0-2) H 09/17/25 11:27 Urine WBC 51-100 /hpf (0-5) H 09/17/25 11:27 Ur Squamous Epith Cells 0-5 /hpf (0-5) 09/17/25 11: Amorphous Sediment Not Reportable 09/17/25 11: Urine Bacteria 1+ /hpf (NONE) H 09/17/25 11: Hyaline Casts 27.14 /lpf 09/17/25 11: Adenovirus (PCR) Not detected (NOT DETECT) 09/19/25 14:50 C. pneumoniae DNA (PCR) Not detected (NOT DETECT) 09/19/25 14:50 Coronavirus 229E (PCR) Not detected (NOT DETECT) 09/19/25 14:50 Hep Bs Antigen Non-reactive (Nonreactive) 09/17/25 03:48 Hep Bs Antibody < 3.5 (11.5-1000) L 09/17/25 03:48 Human Metapneumovir PCR Not detected (NOT DETECT) 09/19/25 14:50 Influenza A (H1) PCR Not detected (NOT DETECT) 09/19/25 14:50 Influenza A (PCR) Negative (Negative) 09/19/25 14:50 Influ A (H1/09) PCR Not detected (NOT DETECT) 09/19/25 14:50 Influenza A (H3) PCR Not detected (NOT DETECT) 09/19/25 14:50 Influenza Type A (PCR) Not detected (NOT DETECT) 09/19/25 14:50 Influenza Type B (PCR) Negative (Negative) 09/19/25 14:50 Influenza Type B (PCR) Not detected (NOT DETECT) 09/19/25 14:50 M. pneumoniae (PCR) Not detected (NOT DETECT) 09/19/25 14:50 Parainfluenza 1 (PCR) Not detected (NOT DETECT) 09/19/25 14:50 Parainfluenza 2 (PCR) Not detected (NOT DETECT) 09/19/25 14:50 Parainfluenza 3 (PCR) Not detected (NOT DETECT) 09/19/25 14:50 Parainfluenza 4 (PCR) Not detected (NOT DETECT) 09/19/25 14:50 RSV (PCR) Negative (Negative) 09/19/25 14:50 RSV Type A (PCR) Not detected (NOT DETECT) 09/19/25 14:50 RSV Type B (PCR) Not detected (NOT DETECT) 09/19/25 14:50 Entero/Rhino (PCR) Not detected (NOT DETECT) 09/19/25 14:50 SARS-CoV-2 (PCR) Negative (Negative) 09/19/25 14:50 SARS-CoV-2 (PCR) Not detected (NOT DETECT) 09/19/25 14:50 <Kerry Tan, LIBRARY SERIALS ASSISTANT - Last Filed: 09/29/25 14:53> Radiology Impressions Chest/Abdomen/Pelvis CT 09/16/25 05:58 IMPRESSION: 1. No acute intrathoracic pathology. 2. Aneurysmal dilatation of the ascending thoracic aorta. IMPRESSION: No acute findings. KUB X-Ray 09/20/25 09:37 IMPRESSION: 1. No acute abdominal process. 2. A moderate amount of retained stool and gas in the colon. Chest X-Ray 09/20/25 10:51 IMPRESSION: 1. New left-sided PICC line ending in the lower one third of the SVC. 2. Significantly improved pulmonary infiltrates since the previous study. Cardiac enlargement unchanged. Abdomen/Pelvis CT 09/21/25 06:10 IMPRESSION: 1. Ill-defined complex collection in the right groin may represent a hematoma. Correlate for recent vascular access. 2. Diffuse bladder wall thickening is likely related to chronic outlet obstruction. Underlying cystitis not excluded. 3. Prostatomegaly. Correlate with PSA levels. 4. Small bilateral pleural effusions with adjacent atelectasis. 5. Ill-defined ground-glass opacities in the lung bases, [id number], may represent atypical infection in the correct clinical setting. 6. 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 Follow-up imaging in 5 years is recommended. Modified Barium Swallow 09/22/25 10:54 IMPRESSION: 1. Abnormal oropharyngeal phase of swallowing. See above discussion. 2. No aspiration or penetration. 3. The barium tablet was retained in a cystic structure along the left margin of the distal esophagus which could be a diverticulum but is most likely a paraesophageal hiatal hernia. Abdomen X-Ray 09/25/25 08:47 IMPRESSION: Improved bowel gas pattern with no acute abnormality. Neck CT 09/27/25 16:20 IMPRESSION: 1. No CT evidence of acute abnormality. 2. Bilateral pleural effusions incompletely assessed on this examination. <Kerry Tan, LIBRARY SERIALS ASSISTANT - Last Filed: 09/29/25 14:53> Recent Clincial Data Last Vital Signs Temp 97.3 F L 09/29/25 12:54 Pulse 70 09/29/25 12:54 Resp 21 H 09/29/25 13:09 BP 97/58 09/29/25 12:54 Pulse Ox 97 09/29/25 04:00 O2 Del Method Nasal Cannula 09/29/25 10:00 O2 Flow Rate 1 09/29/25 04:00 FiO2 1 09/20/25 19:28 Vital Signs Temp Pulse Resp BP Pulse Ox O2 Del Method O2 Flow Rate 09/29/25 13:09 21 H 09/29/25 12:54 97.3 F L 70 16 97/58 09/29/25 12:00 98.1 F 68 14 93/69 09/29/25 10:00 Nasal Cannula 09/29/25 09:54 97.0 F L 67 16 96/61 09/29/25 07:53 97.6 F 65 22 H 95/66 09/29/25 07:15 24 H 09/29/25 04:00 65 16 97 Nasal Cannula 1 09/29/25 04:00 97.9 F 65 19 H 96/59 95 Nasal Cannula Intake & Output/Weight 09/27/25 09/28/25 09/29/25 09/30/25 06:59 06:59 06:59 06:59 Intake Total 2228.541 / 2228.541 702 / 702 1140 / 1140 800 / 800 Output Total 2279 / 2279 450 / 450 2850 / 2850 2150 / 2150 Balance -50.459 / -50.459 252 / 252 -1710 / -1710 -1350 / -1350 Weight 201 lb 11.567 oz 201 lb 12.8 oz 206 lb 5.643 oz 201 lb 4.513 oz <Kerry Tan NP - Last Filed: 09/29/25 14:53> Procedures Performed temporary dialysis catheter placement 09/17/2025 Discussed risks and benefits and consent was obtained to performed a temporary dialysis catheter. The right groin was prepped and draped in the usual sterile fashion. Ultrasound was used to identify the right common femoral vein. Local infiltration done using 5 cc of 1% lidocaine. A finder needle was used to access the right common femoral vein under ultrasound guidance. Able to draw venous blood. I then threaded a wire through the finder needle. I removed the needle and confirmed adequate placement of the wire in the right common femoral vein using ultrasound. Using an 11 blade a stab incision was done next to the wire to accommodate for the dilators. I serially dilated the tract using 2 dilators. The catheter bent and I was unable to insert it in the vein. The ICU ran out of 20 cm dialysis catheters and therefore I decided to abort and hold pressure at the area for 5 minutes. I then decided to attempt a right IJ dialysis catheter insertion. The right neck was prepped and draped in the usual sterile fashion. Ultrasound was used to identify the right internal jugular vein. Local infiltration done using 5 cc of 1% lidocaine. A finder needle was used to access the internal jugular vein under ultrasound guidance. Able to draw venous blood. I then threaded a wire through the finder needle. I removed the needle and confirmed adequate placement of the wire in the internal jugular vein vein using ultrasound. Using an 11 blade a stab incision was done next to the wire to accommodate for the dilators. I serially dilated the tract using 2 dilators. I was then able to place the 16 cm dual-lumen temporary dialysis catheter using the Seldinger technique. I was able to draw blood and flushed easily through both lumens. Catheter was secured in place with sutures. A sterile dressing was applied. Catheter is ready for immediate use. Date of procedure: 09/16/25 Pre-procedure diagnosis: STEMI Post-procedure diagnosis: other (Severe multivessel coronary artery disease) Procedure: Severe multivessel [place] coronary artery disease. SVG to RCA has moderate 50-60% mid vessel stenosis. SVG to diagonal artery had long serial stenosis s/p PCI with 3 stents. SVG to LAD was subtotally occluded with thrombus in it. S/P PCI with 2 stents Transfer to ICU. Start BiPAP. Lasix given Dual antiplatelet therapy with aspirin and plavix Requiring levophed. Obtain echocardiogram Performing Provider: Richar Dobbins Estimated blood loss (mL): 10 Complications: <Kerry Tan NP - Last Filed: 09/29/25 14:53> Vitals Last Vital Signs Temp 97.3 F L 09/29/25 12:54 Pulse 70 09/29/25 12:54 Resp 21 H 09/29/25 13:09 BP 97/58 09/29/25 12:54 Pulse Ox 97 09/29/25 04:00 O2 Del Method Nasal Cannula 09/29/25 10:00 O2 Flow Rate 1 09/29/25 04:00 FiO2 1 09/20/25 19:28 <Kerry Tan NP - Last Filed: 09/29/25 14:53> TS Medications Medications Acetaminophen (Acetaminophen 325 Mg Tablet) 650 mg PO Q6H PRN PRN Reason: MILD PAIN Last Admin: 09/23/25 01:48 Dose: 650 mg Alteplase, Recombinant (Alteplase 1 Mg/Ml Sdv 2 Ml) 2 mg INTRACATH PRN PRN PRN Reason: DIALYSIS USE ONLY Amiodarone HCl (Amiodarone 200 Mg Tablet) 400 mg PO DAILY [facility] Last Admin: 09/29/25 05:22 Dose: 400 mg Aspirin (Aspirin 81 Mg Ec Tablet) 81 mg PO DAILY [facility] Last Admin: 09/29/25 05:22 Dose: 81 mg Atropine Sulfate (Atropine 1 Mg/Ml Sdv 1 Ml) 0.5 mg IVP PRN PRN PRN Reason: Symptomatic bradycardia Budesonide (Budesonide 0.5 Mg/2 Ml Neb) 0.5 mg INHALATION BID.RESPIRATORY PRN PRN Reason: SHORTNESS OF BREATH Clopidogrel Bisulfate (Clopidogrel 75 Mg Tablet) 75 mg PO DAILY [facility] Last Admin: 09/29/25 05:23 Dose: 75 mg Docusate Sodium (Docusate Sodium 100 Mg Capsule) 100 mg PO DAILY PRN PRN Reason: CONSTIPATION Last Admin: 09/20/25 12:03 Dose: 100 mg Furosemide (Furosemide 10 Mg/Ml Sdv 10ml) 60 mg IVP Q12H [facility] Last Admin: 09/29/25 08:05 Dose: 60 mg Heparin Sodium (Porcine) (Heparin 5,000 Unit/Ml Inj 1 Ml) 5,000 unit SUBCUT Q12H [facility] Last Admin: 09/29/25 13:09 Dose: 5,000 unit Nitroglycerin/Dextrose (Nitroglycerin Drip) 50 mg in 250 mls @ 0 mls/hr IV .Q0M LAURA; Protocol Last Titration: 09/17/25 12:33 Dose: 0 mcg/min, 0 mls/hr Sodium Chloride (Sodium Chloride 0.9%) 1,000 mls @ 0 mls/hr IV .Q0M PRN PRN Reason: hypotension or symptomatic Albumin Human (Albumin) 12.5 gm in 50 mls @ 60 mls/hr IV PRN PRN PRN Reason: Hypotension and/or symptomatic Fluconazole (Diflucan Premix) 200 mg in 100 mls @ 100 mls/hr IV Q24H [facility] Last Infusion: 09/28/25 23:19 Dose: Infused Albumin Human (Albumin) 12.5 gm in 50 mls @ 60 mls/hr IV PRN PRN PRN Reason: Hypotension and/or symptomatic Last Infusion: 09/29/25 13:51 Dose: Infused Ipratropium [place] (Ipratropium 0.5 Mg/2.5 Ml Neb) 0.5 mg INHALATION Q6H.RESP PRN PRN Reason: SHORTNESS OF BREATH Last Admin: 09/29/25 00:33 Dose: 0.5 mg Levalbuterol HCl (Levalbuterol 1.25 Mg/3 Ml Neb) 1.25 mg INHALATION Q6H.RESP PRN PRN Reason: SHORTNESS OF BREATH Last Admin: 09/29/25 00:33 Dose: 1.25 mg Lidocaine HCl (Lidocaine 2% Viscous 15 Ml Udc) 10 ml MUCOUS MEM PRN PRN PRN Reason: PAIN Last Admin: 09/29/25 08:21 Dose: 10 ml Magnesium Hydroxide (Magnesium Hydroxide 30 Ml Udc) 30 ml PO DAILY PRN PRN Reason: CONSTIPATION Metoclopramide HCl (Metoclopramide 5 Mg/Ml Sdv 2 Ml) 5 mg IVP Q6H PRN PRN Reason: NAUSEA AND VOMITING Last Admin: 09/28/25 06:00 Dose: 5 mg Midodrine (Midodrine Hcl 10 Mg Tablet) 10 mg PO TID [facility] Morphine Sulfate (Morphine 4 Mg/Ml Sdv 1 Ml) 4 mg IVP Q4H PRN PRN Reason: SEVERE PAIN Last Admin: 09/29/25 13:09 Dose: 4 mg Naloxone HCl (Naloxone 0.4 Mg/Ml Sdv) 0.1 mg IVP Q2M PRN PRN Reason: RESPIRATORY RATE < 8/MIN Nitroglycerin (Nitroglycerin 0.4 Mg Sublingual Tablet) 0.4 mg SUBLINGUAL Q5M PRN PRN Reason: CHEST PAIN Non-Formulary Medication ( Omeprazole 20 Mg Caps) 20 each PO BID [facility] Last Admin: 09/29/25 05:25 Dose: 20 each Nystatin (Nystatin 100,000 Unit/Ml Udc 5 Ml) 200,000 unit PO QID [facility] Last Admin: 09/29/25 13:10 Dose: 200,000 unit Phenol (Phenol Oral [place] 177 Ml) 3 spray MUCOUS MEM Q2H PRN PRN Reason: SORE THROAT Last Admin: 09/29/25 08:44 Dose: 3 spray Polyethylene Glycol (Polyethylene Glycol 3350 Pkt 17 Gm) 17 gm PO DAILY [facility] Last Admin: 09/29/25 05:25 Dose: Not Given Senna (Sennosides 8.6 Mg Tablet) 17.2 mg PO BEDTIME [facility] Last Admin: 09/28/25 20:36 Dose: Not Given Senna/Docusate Sodium (Sennosides-Docusate Tablet) 1 tab PO BID [facility] Last Admin: 09/29/25 05:23 Dose: Not Given Sevelamer Carbonate (Sevelamer 800 Mg Tablet) 800 mg PO TID [facility] Last Admin: 09/29/25 13:25 Dose: Not Given Discontinued Medications Hydrocodone Bitart/Acetaminophen (Hydrocodone-Acetaminophen 7.5-325 Mg Tablet) 1 tab PO Q8H PRN PRN Reason: PAIN Last Admin: 09/23/25 09:25 Dose: 1 tab Hydrocodone Bitart/Acetaminophen (Hydrocodone-Acetaminophen 7.5-325 Mg Tablet) 1 tab PO Q8H PRN PRN Reason: MODERATE PAIN Last Admin: 09/27/25 12:25 Dose: 1 tab Al Hydrox/Mg Hydrox/Simethicone (Lhyl-Nhm-Xsmonnkfr-Hoda 30 Ml Udc) 30 ml PO Q15M PRN PRN Reason: INDIGESTION Al Hydrox/Mg Hydrox/Simethicone (Yumd-Urf-Hzvnkdpql-Hoda 30 Ml Udc) 30 ml PO Q4H [facility] Last Admin: 09/29/25 05:00 Dose: Not Given Alprazolam (Alprazolam 0.5 Mg Tablet) 0.25 mg PO TID PRN PRN Reason: ANXIETY Last Admin: 09/17/25 09:24 Dose: 0.25 mg Amiodarone HCl (Amiodarone 50 Mg/Ml Sdv 3 Ml) Confirm Administered Dose 150 mg .ROUTE .STK-MED ONE Stop: 09/16/25 08:18 Amiodarone HCl (Amiodarone 200 Mg Tablet) 400 mg PO BID [facility] Last Admin: 09/20/25 17:21 Dose: 400 mg Amiodarone HCl (Amiodarone 200 Mg Tablet) 400 mg PO BID [facility] Last Admin: 09/25/25 04:11 Dose: 400 mg Aspirin (Aspirin 325 Mg Tablet) 325 mg PO ONCE ONE Stop: 09/16/25 07:31 Last Admin: 09/16/25 07:39 Dose: 325 mg Aspirin (Aspirin 81 Mg Ec Tablet) 81 mg PO DAILY [facility] Last Admin: 09/20/25 04:33 Dose: 81 mg Budesonide (Budesonide 0.5 Mg/2 Ml Neb) 0.5 mg INHALATION PRN ONE Stop: 09/17/25 09:44 Last Admin: 09/17/25 10:03 Dose: 0.5 mg Budesonide (Budesonide 0.5 Mg/2 Ml Neb) 0.5 mg INHALATION BID.RESPIRATORY [facility] Last Admin: 09/21/25 07:28 Dose: Not Given Ceftriaxone Sodium (Ceftriaxone 1,000 Mg Sdv) 1,000 mg IVP Q24H [facility]; Protocol Last Admin: 09/27/25 14:55 Dose: 1,000 mg Clopidogrel Bisulfate (Clopidogrel 300 Mg Tablet) 600 mg PO ONCE ONE Stop: 09/16/25 07:31 Last Admin: 09/16/25 07:33 Dose: 600 mg Clopidogrel Bisulfate (Clopidogrel 75 Mg Tablet) 75 mg PO DAILY [facility] Last Admin: 09/20/25 04:33 Dose: 75 mg Clopidogrel Bisulfate (Clopidogrel 300 Mg Tablet) 600 mg PO ONCE ONE Stop: 09/22/25 07:45 Last Admin: 09/22/25 08:48 Dose: Not Given Clopidogrel Bisulfate (Clopidogrel 300 Mg Tablet) 600 mg PO ONCE ONE Stop: 09/22/25 13:27 Last Admin: 09/22/25 13:43 Dose: 600 mg Lidocaine HCl 15 ml/ Al Hydrox /Mg Hydrox/Simethicone 30 ml/Sucralfate 1 gm 0 ml PO ONCE ONE Stop: 09/22/25 10:55 Last Admin: 09/22/25 11:17 Dose: 30 suspension Lidocaine HCl 15 ml/Diphenhydramine HCl 37.5 mg/Al Hydrox/Mg Hydrox/Simethicone 15 ml 0 ml MUCOUS MEM TIDAC [facility] Last Admin: 09/25/25 17:19 Dose: Not Given Famotidine (Famotidine 20 Mg Tablet) 20 mg PO BID [facility] Last Admin: 09/25/25 17:36 Dose: Not Given Fentanyl (Fentanyl 50 Mcg/Ml Inj 2ml) Confirm Administered Dose 100 mcg .ROUTE .STK-MED ONE Stop: 09/16/25 07:58 Fentanyl (Fentanyl 50 Mcg/Ml Inj 2ml) 50 mcg IVP PRN PRN PRN Reason: PAIN Last Admin: 09/16/25 23:19 Dose: 50 mcg Furosemide (Furosemide 10 Mg/Ml Sdv 10ml) Confirm Administered Dose 100 mg .ROUTE .STK-MED ONE Stop: 09/16/25 10:02 Furosemide (Furosemide 10 Mg/Ml Sdv 2ml) 20 mg IVP ONCE ONE Stop: 09/16/25 11:16 Last Admin: 09/16/25 11:59 Dose: 20 mg Furosemide (Furosemide 10 Mg/Ml Sdv 4ml) 40 mg IVP Q24H [facility] Last Admin: 09/16/25 17:25 Dose: 40 mg Furosemide (Furosemide 10 Mg/Ml Sdv 10ml) 60 mg IVP ONCE ONE Stop: 09/17/25 09:32 Last Admin: 09/17/25 09:38 Dose: 60 mg Furosemide (Furosemide 10 Mg/Ml Sdv 2ml) 20 mg IVP ONCE ONE Stop: 09/17/25 11:10 Last Admin: 09/17/25 11:21 Dose: 20 mg Furosemide (Furosemide 10 Mg/Ml Sdv 10ml) 80 mg IVP ONCE ONE Stop: 09/17/25 14:41 Last Admin: 09/17/25 14:49 Dose: 80 mg Heparin Sodium (Porcine) (Heparin 5,000 Unit/Ml Inj 1 Ml) 4,000 unit IVP ONCE ONE Stop: 09/16/25 07:31 Last Admin: 09/16/25 07:37 Dose: 4,000 unit Heparin Sodium (Porcine) (Heparin 5,000 Unit/Ml Inj 1 Ml) Confirm Administered Dose 10,000 unit .ROUTE .STK-MED ONE Stop: 09/16/25 07:58 Heparin Sodium (Porcine) (Heparin 5,000 Unit/Ml Inj 1 Ml) Confirm Administered Dose 5,000 unit .ROUTE .STK-MED ONE Stop: 09/16/25 09:36 Heparin Sodium (Porcine) (Heparin 5,000 Unit/Ml Inj 1 Ml) 5,000 unit SUBCUT Q12H [facility] Last Admin: 09/16/25 15:21 Dose: Not Given Heparin Sodium (Porcine) (Heparin, Porcine 1,000 Unit/Ml Inj 10 Ml) 10,000 unit INTRACATH ONCE ONE Stop: 09/17/25 16:52 Last Admin: 09/18/25 07:28 Dose: Not Given Heparin Sodium (Porcine) (Heparin, Porcine 1,000 Unit/Ml Inj 10 Ml) 1,000 unit IV ONCE ONE Stop: 09/17/25 16:52 Last Admin: 09/18/25 07:28 Dose: Not Given Heparin Sodium (Porcine) (Heparin, Porcine 1,000 Unit/Ml Inj 10 Ml) 10,000 unit INTRACATH ONCE ONE Stop: 09/18/25 07:17 Last Admin: 09/18/25 15:13 Dose: Not Given Heparin Sodium (Porcine) (Heparin, Porcine 1,000 Unit/Ml Inj 10 Ml) 1,000 unit IV ONCE ONE Stop: 09/18/25 07:17 Last Admin: 09/18/25 15:13 Dose: Not Given Heparin Sodium (Porcine) (Heparin, Porcine 1,000 Unit/Ml Inj 10 Ml) 10,000 unit INTRACATH ONCE ONE Stop: 09/20/25 07:09 Last Admin: 09/21/25 07:22 Dose: Not Given Heparin Sodium (Porcine) (Heparin, Porcine 1,000 Unit/Ml Inj 10 Ml) 1,000 unit IV ONCE ONE Stop: 09/20/25 07:09 Last Admin: 09/21/25 07:22 Dose: Not Given Heparin Sodium (Porcine) (Heparin, Porcine 1,000 Unit/Ml Inj 10 Ml) 1,000 unit IV ONCE ONE Stop: 09/21/25 10:16 Last Admin: 09/21/25 12:20 Dose: Not Given Heparin Sodium (Porcine) (Heparin, Porcine 1,000 Unit/Ml Inj 10 Ml) 10,000 unit HE ONCE ONE Stop: 09/23/25 10:42 Last Admin: 09/23/25 22:10 Dose: 10,000 unit Heparin Sodium (Porcine) (Heparin, Porcine 1,000 Unit/Ml Inj 10 Ml) 10,000 unit INTRACATH ONCE ONE Stop: 09/23/25 10:42 Last Admin: 09/24/25 16:41 Dose: 10,000 unit Heparin Sodium (Porcine) (Heparin, Porcine 1,000 Unit/Ml Inj 10 Ml) 1,000 unit IV ONCE ONE Stop: 09/28/25 10:01 Last Admin: 09/28/25 10:41 Dose: Not Given Hydromorphone HCl (Hydromorphone 0.5 Mg/0.5 Ml Inj) 1 mg IVP ONCE ONE Stop: 09/16/25 06:33 Last Admin: 09/16/25 06:44 Dose: 1 mg Hydromorphone HCl (Hydromorphone 0.5 Mg/0.5 Ml Inj) 0.5 mg IVP ONCE ONE Stop: 09/16/25 07:22 Last Admin: 09/16/25 07:30 Dose: 0.5 mg Lidocaine HCl (Xylocaine) Confirm Administered Dose 20 mls @ as directed .ROUTE .STK-MED ONE Stop: 09/16/25 07:58 Sodium Chloride (Sodium Chloride 0.9%) Confirm Administered Dose 1,000 mls @ as directed .ROUTE .STK-MED ONE Stop: 09/16/25 07:58 AMIODARONE HCL/D5W (Amiodarone 900 Mg/500 Ml-D5w) 900 mg in 500 mls @ 0 mls/hr IV .Q0M [facility]; Protocol Last Titration: 09/18/25 11:39 Dose: 0 mg/min, 0 mls/hr Sodium Chloride (Sodium Chloride 0.9%) Confirm Administered Dose 250 mls @ as directed .ROUTE .STK-MED ONE Stop: 09/16/25 09:00 Norepinephrine Bitartrate (Levophed) Confirm Administered Dose 4 mg in 250 mls @ as directed .ROUTE .STK-MED ONE Stop: 09/16/25 09:05 Tirofiban/Sodium Chloride (Aggrastat) Confirm Administered Dose 5 mg in 100 mls @ as directed .ROUTE .STK-MED ONE Stop: 09/16/25 09:12 Sodium Chloride (Sodium Chloride 0.9% (100 Ml)) Confirm Administered Dose 100 mls @ as directed .ROUTE .STK-MED ONE Stop: 09/16/25 09:52 Tirofiban/Sodium Chloride (Aggrastat) 5 mg in 100 mls @ 0 mls/hr IV .Q0M [facility]; Protocol Last Titration: 09/16/25 14:47 Dose: 0 mcg/kg/min, 0 mls/hr Norepinephrine Bitartrate (Levophed) 4 mg in 250 mls @ 0 mls/hr IV .Q0M [facility]; Protocol Last Titration: 09/28/25 18:42 Dose: Infused Azithromycin 500 mg/ Sodium (Chloride) 250 mls @ 250 mls/hr IV Q24H [facility]; Protocol Stop: 09/18/25 11:14 Last Infusion: 09/19/25 18:05 Dose: Infused Sodium Chloride (Sodium Chloride 0.9%) 1,000 mls @ 0 mls/hr IV .Q0M PRN PRN Reason: hypotension or symptomatic Albumin Human (Albumin) 12.5 gm in 50 mls @ 60 mls/hr IV PRN PRN PRN Reason: Hypotension and/or symptomatic Last Infusion: 09/18/25 12:03 Dose: Infused Sodium Chloride (Sodium Chloride 0.9%) 1,000 mls @ 0 mls/hr IV .Q0M PRN PRN Reason: hypotension or symptomatic Albumin Human (Albumin) 12.5 gm in 50 mls @ 60 mls/hr IV PRN PRN PRN Reason: Hypotension and/or symptomatic Terbutaline Sulfate 1 mg/ (Sodium Chloride) 10 mls @ 0 mls/hr SUBCUT ONCE ONE Stop: 09/19/25 08:01 Last Admin: 09/19/25 08:11 Dose: 1 mls/hr Calcium Gluconate/Sodium Chloride (Calcium Gluconate 0.9% Nacl) 1 gm in 50 mls @ 50 mls/hr IV ONCE ONE Stop: 09/19/25 17:37 Last Admin: 09/19/25 17:43 Dose: 50 mls/hr Sodium Chloride (Sodium Chloride 0.9%) 1,000 mls @ 0 mls/hr IV .Q0M PRN PRN Reason: hypotension or symptomatic Albumin Human (Albumin) 12.5 gm in 50 mls @ 60 mls/hr IV PRN PRN PRN Reason: Hypotension and/or symptomatic Tirofiban/Sodium Chloride (Aggrastat) 5 mg in 100 mls @ 0 mls/hr IV .Q0M [facility]; Protocol Tirofiban/Sodium Chloride (Aggrastat) 5 mg in 100 mls @ 0 mls/hr IV .Q0M [facility]; Protocol Albumin Human (Albumin) 12.5 gm in 50 mls @ 60 mls/hr IV PRN PRN PRN Reason: Hypotension and/or symptomatic Fluconazole 150 mg/ N/A 75 mls @ 50 mls/hr IV ONCE ONE Stop: 09/27/25 08:29 Last Infusion: 09/27/25 11:33 Dose: Infused Iohexol (Iohexol 350 Mg/Ml 500 Ml Btl (Per Ml)) 0 ml IV ONCE ONE Stop: 09/16/25 07:12 Last Admin: 09/16/25 07:12 Dose: 100 ml Ipratropium [place] (Ipratropium 0.5 Mg/2.5 Ml Neb) 0.5 mg INHALATION ONCE ONE Stop: 09/17/25 09:43 Last Admin: 09/17/25 10:03 Dose: 0.5 mg Ipratropium [place] (Ipratropium 0.5 Mg/2.5 Ml Neb) 0.5 mg INHALATION Q4H.RESPIRATORY [facility] Last Admin: 09/17/25 12:13 Dose: Not Given Ipratropium [place] (Ipratropium 0.5 Mg/2.5 Ml Neb) 0.5 mg INHALATION Q6H.RESP [facility] Last Admin: 09/21/25 14:37 Dose: Not Given Levalbuterol HCl (Levalbuterol 0.63 Mg/3 Ml Neb) 0.63 mg INHALATION ONCE ONE Stop: 09/17/25 09:42 Last Admin: 09/17/25 10:03 Dose: 0.63 mg Levalbuterol HCl (Levalbuterol 1.25 Mg/3 Ml Neb) 1.25 mg INHALATION Q6H.RESP [facility] Last Admin: 09/21/25 14:37 Dose: Not Given Metoclopramide HCl (Metoclopramide 5 Mg/Ml Sdv 2 Ml) 5 mg IVP Q6H PRN PRN Reason: NAUSEA AND VOMITING Last Admin: 09/18/25 21:26 Dose: 5 mg Metolazone (Metolazone 5 Mg Tablet) 2.5 mg PO NOW ONE Stop: 09/17/25 14:46 Last Admin: 09/17/25 14:49 Dose: 2.5 mg Midazolam HCl (Midazolam 1 Mg/Ml Inj 2 Ml) Confirm Administered Dose 2 mg .ROUTE .STK-MED ONE Stop: 09/16/25 07:58 Midodrine (Midodrine 5 Mg Tablet) 10 mg PO TID [facility] Last Admin: 09/29/25 13:10 Dose: 10 mg Morphine Sulfate (Morphine 4 Mg/Ml Sdv 1 Ml) 4 mg IVP ONCE ONE Stop: 09/16/25 05:59 Last Admin: 09/16/25 06:19 Dose: 4 mg Morphine Sulfate (Morphine 4 Mg/Ml Sdv 1 Ml) 2 mg IVP ONCE ONE Stop: 09/16/25 11:16 Last Admin: 09/16/25 11:58 Dose: 2 mg Morphine Sulfate (Morphine 4 Mg/Ml Sdv 1 Ml) 2 mg IVP Q1H PRN PRN Reason: SEVERE PAIN Last Admin: 09/21/25 20:27 Dose: 2 mg Nicardipine HCl (Nicardipine 25 Mg/10 Ml Sdv 10 Ml) Confirm Administered Dose 25 mg .ROUTE .STK-MED ONE Stop: 09/16/25 09:52 Nitroglycerin (Nitroglycerin 5 Mg/Ml Sdv 10 Ml) Confirm Administered Dose 50 mg .ROUTE .STK-MED ONE Stop: 09/16/25 07:58 Nitroglycerin (Nitroglycerin 0.4 Mg Sublingual Tablet) 0.4 mg SUBLINGUAL Q5M PRN PRN Reason: CHEST PAIN Nitroglycerin (Nitroglycerin 1 Gm/Inch Oint Pkt) 0 inch TOPICAL ONCE ONE Stop: 09/19/25 08:01 Last Admin: 09/19/25 08:14 Dose: 1 inch Ondansetron HCl (Ondansetron 2 Mg/Ml Sdv 2 Ml) 4 mg IVP ONCE ONE Stop: 09/16/25 05:59 Last Admin: 09/16/25 06:19 Dose: 4 mg Ondansetron HCl (Ondansetron 2 Mg/Ml Sdv 2 Ml) 4 mg IVP Q4H PRN PRN Reason: NAUSEA AND VOMITING Last Admin: 09/18/25 12:58 Dose: 4 mg Ondansetron HCl (Ondansetron 2 Mg/Ml Sdv 2 Ml) 8 mg IVP Q8H [facility] Last Admin: 09/21/25 03:15 Dose: 8 mg Ondansetron HCl (Ondansetron 2 Mg/Ml Sdv 2 Ml) 8 mg IVP Q8H [facility] Last Admin: 09/21/25 18:01 Dose: 8 mg Pantoprazole Sodium (Pantoprazole 40 Mg Sdv) 40 mg IVP DAILY [facility] Last Admin: 09/20/25 04:33 Dose: 40 mg Pantoprazole Sodium (Pantoprazole 40 Mg Sdv) 40 mg IVP DAILY [facility] Last Admin: 09/25/25 04:08 Dose: 40 mg Phenylephrine HCl (Phenylephrine 10 Mg/Ml Sdv 1 Ml) Confirm Administered Dose 10 mg .ROUTE .STK-MED ONE Stop: 09/16/25 09:00 Polyethylene Glycol (Polyethylene Glycol 3350 Pkt 17 Gm) 17 gm PO DAILY [facility] Last Admin: 09/26/25 04:00 Dose: Not Given Potassium Chloride (Potassium Chloride Er 20 Meq Tablet) 40 meq PO ONCE ONE Stop: 09/16/25 12:48 Last Admin: 09/16/25 13:13 Dose: 40 meq Temazepam (Temazepam 15 Mg Capsule) 15 mg PO BEDTIME PRN PRN Reason: INSOMNIA Last Admin: 09/17/25 01:55 Dose: 15 mg Ticagrelor (Ticagrelor 90 Mg Tablet) 180 mg PO ONCE ONE Stop: 09/22/25 08:52 Last Admin: 09/22/25 09:52 Dose: Not Given <Kerry Tan NP - Last Filed: 09/29/25 14:53> Allergies amoxicillin (From Augmentin) Allergy (Verified 08/31/25 10:19) ALGY-Rash clavulanic acid (From Augmentin) Allergy (Verified 08/31/25 10:19) ALGY-Rash clopidogrel (From Plavix) Allergy (Verified 08/31/25 10:19) ALGY-Joint Pain Vkcqjlm-ODQ-BuI Reductase Inhibitor (Waslmba-Loy-Isw Reductase Inhibitor) Allergy (Verified 08/31/25 10:19) ADV-Weakness sulfamethoxazole (From Bactrim) Allergy (Verified 08/31/25 10:19) ALGY-Rash trimethoprim (From Bactrim) Allergy (Verified 08/31/25 10:19) ALGY-Rash Home Medications nitroglycerin 0.4 mg sublingual tablet (Nitrostat) 0.4 mg sublingual Q5M PRN Chest Pain 11/21/19 [History Confirmed 09/16/25] omeprazole 20 mg capsule,delayed release 20 mg PO BID PRN Acid Reflux 01/16/20 [History Confirmed 09/16/25] amlodipine 5 mg tablet 10 mg (2 x 5 mg) PO DAILY #14 tabs 01/07/22 [Rx Confirmed 09/16/25] hydrocodone 7.5 mg-acetaminophen 325 mg tablet 1 tab PO Q8H PRN Pain 04/20/23 [History Confirmed 09/16/25] furosemide 40 mg tablet 40 mg PO DAILY 12/29/24 [History Confirmed 09/16/25] ketoconazole 2 % shampoo See Rx Instructions .Route .COMPLEX 09/16/25 [History Confirmed 09/16/25] lisinopril 20 mg tablet 20 mg PO BID 09/16/25 [History Confirmed 09/16/25] <Kerry Tan NP - Last Filed: 09/29/25 14:53> Discharge Plan Discharge Patient Disposition: Xfer Short-Term Hosp <Kerry Tan NP - Last Filed: 09/29/25 14:53> Condition: Stable <Kerry Tan NP - Last Filed: 09/29/25 14:53> Prescriptions: Discontinued amlodipine 5 mg tablet 10 mg PO DAILY Qty: 14 0RF omeprazole 20 mg capsule,delayed release(DR/EC) 20 mg PO BID PRN (Reason: Acid Reflux) hydrocodone-acetaminophen 7.5-325 mg tablet 1 tab PO Q8H PRN (Reason: Pain) furosemide 40 mg tablet 40 mg PO DAILY nitroglycerin [Nitrostat] 0.4 mg Tablet, Sublingual 0.4 mg SUBLINGUAL Q5M PRN (Reason: Chest Pain) ketoconazole 2 % shampoo See Rx Instructions .ROUTE .COMPLEX Rx Instructions: Lather onto SCALP and face two TO three times weekly, allow TO sit FOR FIVE minutes THEN RINSE lisinopril 20 mg tablet 20 mg PO BID <Kerry Tan NP - Last Filed: 09/29/25 14:53> Discharge Order = DC NOW: Transfer Out of Facility (Order); Ordered 09/29/25 Ordered By: Kerry Tan <Kerry Tan NP - Last Filed: 09/29/25 14:53> Referrals: Yanely Fields FNP [Nurse Practitioner, Cardiology] - 10/16/25 1:00 pm Brandon Lopez MD [Primary Care Provider, Family Practice] - 10/05/25 9:45 am <Kerry Tan NP - Last Filed: 09/29/25 14:53> Patient Instructions: Coronary Angioplasty (DC), Acute Wound Care (DC), Abdominal Pain (ED), Opioid Safety, Post Anesthesia Care, Patient Portal & Khushi Instructions <Kerry Tan NP - Last Filed: 09/29/25 14:53> Transfer Attestations Time Spent in Transfer Care: greater than 30 min <Esha Orellana MD - Last Filed: 09/29/25 15:14> Quality Metrics Clinical Quality Measures [ Acute Myocardial Infaction { Clinical Trial Participant: No; Contraindication to aspirin: None; Aspirin prescribed; Contraindication to statin: None; Statin prescribed;}] <Esha rOellana MD - Last Filed: 09/29/25 15:14> Coding Level of Care Code Acute Code for Chg Fwd Diagnoses Dysphagia R13.10 Cardiogenic shock R57.0 Mitral valve regurgitation I34.0 Acute congestive heart failure I50.9 ST elevation (STEMI) myocardial infarction I21.3 Acute kidney injury N17.9 Ventricular bigeminy I49.9
--- NOTE | 2025-09-29 16:59 | P.PN_ITS ---
Subjective 2 Subjective: No complaints. Vitals/I&O/Wt Last Vital Signs Temp 97.6 F 09/29/25 16:00 Pulse 66 09/29/25 16:00 Resp 21 H 09/29/25 16:00 BP 92/55 09/29/25 16:00 Pulse Ox 97 09/29/25 04:00 O2 Del Method Nasal Cannula 09/29/25 10:00 O2 Flow Rate 1 09/29/25 04:00 FiO2 1 09/20/25 19:28 09/29/25 09/29/25 09/29/25 06:59 14:59 22:59 Intake Total 340 / 1140 800 / 800 Output Total 100 / 2850 2150 / 2150 Balance 240 / -1710 -1350 / -1350 Weight last 48 hrs Weight 201 lb 4.513 oz Weight 206 lb 5.643 oz Weight 208 lb 1.862 oz Weight 201 lb 12.8 oz Physical Exam 2 Narrative: Patient is a well developed well nourished and in NAD and is afebrile with vitals stable and is answering questions appropriately with a normal affect and is alert and oriented x3 HEENT: normocephalic with normal external ears and nonicteric, oral mucosa moist and dentition normal for age, trachea midline with no large masses visualized Heart: RRR, no gallops murmurs or rubs, normal PMI with no thrills Lungs: normal excursions, no loud audible wheezing, no subcutaneous emphysema Abdomen: nondistended, no gross hepatosplenomegaly, no masses, no rigidity or rebound, no loud borborygmi Neuro: nonfocal, HORNER, grossly normal sensation Musculoskeletal: good muscle tone, no fasciculations, normal gait Skin: pink warm and dry with no rashes or ecchymosis Vascular: good radial pulses, no ulceration, less than 2 second capillary refill in hand : deferred Urinary Catheter Management: Wu: Cath Placed During This Visit: no Reason for Continuing Indwelling Catheter: Acute Urinary Retention or Obstruction Data 09/29/25 03:32 09/29/25 03:32 A&P Assessment and plan 1. Acute kidney injury: Plan: Asked by Dr. Desai to place perm cath dialysis catheter prior to discharge. Plan is to make NPO after MN and proceed with perm cath tomorrow. Patient states he may go to [place] today for possible AICD. Plan will be perm cath tomorrow is patient is still here. Risks, benefits and alternatives given to patient. I US the neck at IJ and both appear patent and adequate size. Risks include bleeding, infection, cardiopulmonary problems, PTX, injury to surrounding neck/thorax or leg structures, VTE, more procedure, mechanical failures. PDMP PDMP Reviewed: Not Reviewed Attestations 2 Medical Necessity Statement*: Patient still requiring dialysis Coding Level of Care Code 82319 Diagnoses Acute kidney injury N17.9
--- NOTE | 2025-09-29 17:29 | PC.NURSE ---
Patient transferred to [place], [place]. Report called to DANIEL Santos. Dr Orellana into see patient and discussed transfer with patient and daughter. All verbalized understanding. Patient taken by helicoptor.
== END 2025-09-29 17:31 | disposition short-term general hospital (02) | DRG 359 ==
LOC: ER 06:30 → CCL 08:07 → ICU 09:12 → CSU 09-28 17:11
PROVIDERS: Family Medicine; Hospitalist; Internal Medicine; Internal Medicine Nephrology; Nurse Practitioner Family; Student in an Organized Health Care Education/Training Program; Admitting Provider Internal Medicine; Emergency Provider Emergency Medicine; PCP Family Medicine; Visit Provider Internal Medicine
PROC: 02C03ZZ Extirpation of Matter from Coronary Artery, One Artery, Percutaneous Approach (ICD-10-PCS; principal; 2025-09-16 08:00)
PROC: 02C03ZZ Extirpation of Matter from Coronary Artery, One Artery, Percutaneous Approach (ICD-10-PCS; 2025-09-16 08:00)
DX: I21.02 ST elevation (STEMI) myocardial infarction involving left anterior descending coronary artery (principal); I50.21 Acute systolic (congestive) heart failure; N18.6 End stage renal disease; J18.9 Pneumonia, unspecified organism; J96.01 Acute respiratory failure with hypoxia; R57.0 Cardiogenic shock; I13.2 Hypertensive heart and chronic kidney disease with heart failure and with stage 5 chronic kidney disease, or end stage renal disease; N17.9 Acute kidney failure, unspecified; I43 Cardiomyopathy in diseases classified elsewhere; E87.1 Hypo-osmolality and hyponatremia; E87.20 Acidosis, unspecified; R13.10 Dysphagia, unspecified; B37.9 Candidiasis, unspecified; I25.10 Atherosclerotic heart disease of native coronary artery without angina pectoris; Z95.1 Presence of aortocoronary bypass graft; Z88.1 Allergy status to other antibiotic agents; Z88.2 Allergy status to sulfonamides; I35.0 Nonrheumatic aortic (valve) stenosis; M54.16 Radiculopathy, lumbar region; M62.81 Muscle weakness (generalized); N14.11 Contrast-induced nephropathy; Z99.81 Dependence on supplemental oxygen; N40.1 Benign prostatic hyperplasia with lower urinary tract symptoms; R74.01 Elevation of levels of liver transaminase levels; I34.0 Nonrheumatic mitral (valve) insufficiency; I49.3 Ventricular premature depolarization; R73.9 Hyperglycemia, unspecified; R34 Anuria and oliguria; K44.9 Diaphragmatic hernia without obstruction or gangrene; D64.9 Anemia, unspecified; E87.5 Hyperkalemia; E83.39 Other disorders of phosphorus metabolism; S30.12XA Contusion of groin, initial encounter; Y84.6 Urinary catheterization as the cause of abnormal reaction of the patient, or of later complication, without mention of misadventure at the time of the procedure; Y92.239 Unspecified place in hospital as the place of occurrence of the external cause; Z82.49 Family history of ischemic heart disease and other diseases of the circulatory system
CPT/HCPCS: 36415; 36416; 36573; 36592; 36600; 70490; 71045; 71275; 74018; 74176; 74177; 74230; 80048; 80051; 80053; 80061; 81001; 82330; 82805; 82962; 83036; 83605; 83615; 83690; 83735; 83880; 84100; 84443; 84484; 85025; 85347; 85610; 85730; 86706; 87040; 87086; 87340; 87486; 87581; 87633; 87637; 90935; 92526; 92610; 92611; 93005; 93306; 93455; 94640; 94660; 96372; 96374; 96375; 96376; 97110; 97116; 97162; 97167; 97530; 97535; 99152; 99153; 99285; A4222; C1725; C1751; C1757; C1769; C1874; C1887; C1894; C9606; J0282; J0456; J0612; J0696; J1171; J1200; J1450; J1644; J1938; J2250; J2270; J2371; J2404; J2405; J2470; J2765; J3010; J3105; J3490; J7030; J7050; J7614; J7626; J7644; J9999; P9047; Q3014; Q9967

== ENCOUNTER 2025-10-13 15:53 | Inpatient (IN) | payer MEDICARE, OTHER, SELFPAY ==
--- OUTSIDE RECORDS SUMMARY | 2025-09-13 03:40 | XMS_ITS ---
Author Organization [facility] Address [address] [place] [address] Care Team Providers Care Head Of Insight Name Role Phone John STEVE, Brandon Primary Care Provider Cachorro Lara Unavailable [phone] REASON FOR VISIT 2 mo RK Encounters Encounter Location Date Provider Diagnosis [facility] Inter[facility] Management [address] [address] 09/13/2025 Cachorro Brito Plan Of Treatment No Information Progress Notes * Anish RIDER WDOB: [birth year] (85 yo M)Acc No.[id number]:09/13/2025 Progress Notes Patient: Anish Sahni Provider: Benjamin Brito D.O. :1940 A ge:85 Y S ex:Male Date:09/13/2025 Address:[address] [id number] Pcp:Brandon Lopez MD Subjective: * Chief Complaints: * 2 mo RK Care Plan Details* * Electronic signature of Cachorro Brito DO on 10/13/2025 at 03:59 PM ORTHOPEDIC PHYSICIAN ASSISTANT Sign off status: Pending * Provider: Benjamin Brito D.O. Date: 11/13/2024 Generated for Jhonatani ng/Fatenag/eTransmitting on: 12/14/2024 03:59 PM ORTHOPEDIC PHYSICIAN ASSISTANT
--- NOTE | 2025-10-13 15:50 | XRR_ITS ---
PROCEDURE INFORMATION: Exam: XR Chest Exam date and time: 10/13/2025 4:02 PM Age: 85 years old Clinical indication: Pain; Chest pressure; Additional info: Cp TECHNIQUE: Imaging protocol: Radiologic exam of the chest. 1 image(s) are submitted. Views: 1 view. COMPARISON: CR XR chest 1V portable [id number] 09/20/2025 12:29 PM FINDINGS: Tubes, catheters and devices: Interval placement of a double-lumen large-bore central venous catheter with tip in the right atrium. Cardiomegaly. 3 cm region of pulmonary infiltrate or atelectasis adjacent to the tip of the left heart border, new since prior study. Ill-defined 6 cm airspace abnormality in the left midlung laterally, may be new since prior study, also could represent pneumonia or atelectasis. No pneumothorax or pleural effusion seen. Lungs: See Tubes, catheters and devices finding. Pleural spaces: See Tubes, catheters and devices finding. Heart/Mediastinum: See Tubes, catheters and devices finding. Bones/joints: Unremarkable. XR/XR chest 1V portable [id number] IMPRESSION: Interval placement of a double-lumen large-bore central venous catheter with tip in the right atrium. Cardiomegaly. 3 cm region of pulmonary infiltrate or atelectasis adjacent to the tip of the left heart border, new since prior study. Ill-defined 6 cm airspace abnormality in the left midlung laterally, may be new since prior study, also could represent pneumonia or atelectasis. No pneumothorax or pleural effusion seen.
--- NOTE | 2025-10-13 15:50 | ECG_ITS ---
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1940 Requested By: Tho Santamaria Order Number: [id number] Reading MD: MANUEL HUTCHISON Measurements Intervals [place] Rate: 66 P: 22 RI: 156 QRS: 213 QRSD: 166 T: 8 QT: 504 QTc: 529 Interpretive Statements SINUS RHYTHM WITH OCCASIONAL VENTRICULAR PREMATURE COMPLEXES POSSIBLE LEFT ATRIAL ENLARGEMENT [-0.1mV P-WAVE IN V1/V2] RIGHT AXIS DEVIATION [QRS AXIS > 100] RIGHT BUNDLE BRANCH BLOCK AND POSSIBLE RIGHT VENTRICULAR HYPERTROPHY [RBBB, 1.5 mV R IN V1, RAD] ANTEROSEPTAL MYOCARDIAL INFARCTION , OF INDETERMINATE AGE [40+ ms Q WAVE IN V1-V4] Compared to ECG 09/17/2025 19:41:51 Ventricular premature complex(es) now present Sinus tachycardia no longer present Myocardial infarct finding still present Electronically Signed On 10-15-2025 23:03:38 FRONT END SPECIALIST by MANUEL HUTCHISON [email or web address]
[2025-10-13 15:58] VITALS: BP 101/66; PULSE 74; RESP 20; TEMP 36.4; O2SAT 97; BMI 29.0
--- OUTSIDE RECORDS SUMMARY | 2025-10-13 15:59 | XMS_ITS | Encounter Summary ---
Author Organization [facility] [employer], [facility] Address [address] [place] [address] Phone Care Team Providers Care Assessment Specialist Name Role Phone Unavailable Primary Care Provider Unavailabl e Encounter Details Date Type Department Care Team (Late st Contact Info) Description 10/05/2025 Orders Only [facility] [address] [place] [address] Tabby Carmona MD [address] [place] [address] Social History Tobacco Use Types Packs/Day Years Used Date Smoking Tobacco: Never Assessed Sex and Gender Information Value Date Recorded Sex Assigned at Not on file Legal Sex Male 11:48 AM EST Gender Identity Not on file Sexual Orientation Not on file documented as of this encounter Plan of Treatment Pending Results Name Type Priority Associated Diagnoses Date /Time Potassium Lab Routine 10/05/2025 Creatinine, serum Lab Routine 025 BUN Lab Routine 10/05/2025 Sodium Lab Routine 10/05/2025 Chloride Lab Routine 10/05/2025 CO2 Lab Routine 10/05/2025 Calcium Lab Routine 10/05/2025 Phosphorus Lab Routine 10/05/2025 Alkaline phosphatase Lab Routine 09/18 Protein, total Lab Routine 10/05/2025 Albumin Lab Routine 10/05/2025 Magnesium Lab Routine 10/05/2025 Iron and TIBC Lab Routine 10/05/2025 Hepatitis B Surface Ag w/Ref valerio Confirmation Lab Routine 10/05/2025 Hepatitis B Core Antibody, Total Lab Routine 10/05/2025 Hepatitis B Surface Ab Immunity Lab Routine 10/05/2025 HEPATITIS C AB W/REFL TO HCV RNA, QN, PCR (REFL) Lab Routine 10/05/2025 Ferritin Lab Routine 10/05/2025 Aluminum level Lab Routine 10/05/2025 documented as of this encounter Procedures Procedure Name Priority Date/Time Associated Diagnosis Comments DIFFERENTIAL WITH WBC Routine 10/05/2025 PLATELET COUNT Routine 10/05/2025 CBC Routine 10/05/2025 PTH, INTACT Routine 10/05/2025 documented in this encounter Results * PTH, Intact (10/05/2025) Parathyroid Hormone, Intact OTH pg/mL [facility] Comment: TEST NOT PERFORMED. An electronic test request was transmitted, but no specimen was received by the laboratory. Test has been cancelled. 10/05/2025 10/04/2025 11: 21 AM SYNTHETIC STAPLE EXTRUDER Narrative Resulting Agency Comment Performing Organization Information: Site ID: [id number] Name: [facility] Address: [address] [place] [id number] Director: Marianne Lawson MD us Tabby Carmona MD LAB BLOOD ORDERABLES Final Re sult [facility] [address] * Differential with WBC (10/05/2025) WBC OTH Thousand/u L [facility] Comment: TEST NOT PERFORMED. An electronic test request was transmitted, but no specimen was received by the laboratory. Test has been cancelled. 10/05/2025 10/04/2025 11: 21 AM SYNTHETIC STAPLE EXTRUDER Narrative Resulting Agency Comment Performing Organization Information: Site ID: [id number] Name: [facility] Address: [address] [place] [phone] Director: Marianne Lawson MD us Tabby Carmona MD LAB BLOOD ORDERABLES Final Re sult Performing Organization Address [facility]/ZIP Co de Phone Number [facility] [address] [place] [address] * CBC (10/05/2025) WBC OTH Thousand/u L [facility] Comment: TEST NOT PERFORMED. An electronic test request was transmitted, but no specimen was received by the laboratory. Test has been cancelled. 10/05/2025 10/04/2025 11: 21 AM SYNTHETIC STAPLE EXTRUDER Narrative Resulting Agency Comment Performing Organization Information: Site ID: [id number] Name: [facility] Address: [address] [place], [place] [address] [facility] [place] [address] Director: Marianne Lawson MD Tabby Carmona MD LAB BLOOD ORDERABLES Final Re sult Performing Organization Address [facility] Co de Phone Number [facility] [facility] [address] [place] [address] * Platelet count (10/05/2025) Platelets OTH Thousand/u L [facility] Comment: TEST NOT PERFORMED. An electronic test request was transmitted, but no specimen was received by the laboratory. Test has been cancelled. 10/05/2025 10/04/2025 11: 21 AM SYNTHETIC STAPLE EXTRUDER Narrative Resulting Agency Comment Performing Organization Information: Site ID: [id number] Name: [facility]: [id number] [place] [address] Director: Marianne Lawson MD us Tabby Carmona MD LAB BLOOD ORDERABLES Final Re sult Performing Organization Address [facility] Co de Phone Number [facility] [facility] [address] [place] [address] documented in this encounter Visit Diagnoses Not on filedocumented in this encounter
--- OUTSIDE RECORDS SUMMARY | 2025-10-13 15:59 | XMS_ITS | Encounter Summary ---
Author Organization [facility] [employer], [facility] Address [address] [place] [address] Phone Care Team Providers Care Garment Turner Name Role Phone Unavailable Primary Care Provider Matthew e Encounter Details Date Type Department Care Team (Late st Contact Info) Description 10/09/2025 Treatment [facility] [employer] [facility] [address] [place] [address] Tabby Carmona MD [address] [place] [address] Social History Tobacco Use Types Packs/Day Years Used Date Smoking Tobacco: Never Assessed Sex and Gender Information Value Date Recorded Sex Assigned at Not on file Legal Sex Male 11:48 AM EST Gender Identity Not on file Sexual Orientation Not on file documented as of this encounter Miscellaneous Notes * Dialysis Note - Tabby Carmona MD - 10/09/2025 12:00 AM CST Patient: Anish Colon, 1940, 85y, M Dialysis Location: [facility] Attending Chief Investment Officer: Tabby Carmona Service Date: 10/09/2025 Service Provider: aTbby Carmona MD I met face to face with the patient today. OVERVIEW The patient presented with BRANDYN on dialysis. Cause of BRANDYN: ATN Tubular Necrosis; Date of first dialysis in inpatient settin10/09/2025 Comments: BRANDYN on CKD. He had cardiac issues requiring 5 stents and has a life vest. He does not make much urine. BPs are low with SBP in the 90s. He reports at the hospital they had to use this. Today have not been able to UF from having low BPs. Will give midodrine. Labs pending today. Medications and labs reviewed. DIALYSIS PRESCRIPTION IHD 3x Week Start date: 10/10/25 Dialyzer: FX CorAL 80 BFR: 400 DFR: Manual 800 Potassium: 3.0 Sodium: 137 EDW: 90 Duration: 4:00 Calcium: 2.5 Bicarb: 35 Rx updated on: 10/06/2025 FLUID ASSESSMENT Comments: As above. ACCESS ASSESSMENT Access Type: CVCatheter Access SubType: Tunneled Access Status: Active (In Use) - 10/04/2025 Access Location: Chest Placed: 10/02/2025 Vascular access reviewed. Current access is functioning well. PHYSICAL EXAM Exam Performed. Vital Signs Reviewed. CV - Blood pressure noted. EXT - 1+ edema. EXT - No ulcers. DIAGNOSIS Chief Complaint: N17.9 Acute kidney failure, unspecified Patient is stable. Patient data updated 10/09/2025 at 3:02 PM Signed By: Tabby Carmona MD on 10/09/2025 3:06:14 PM documented in this encounter Plan of Treatment Not on file documented as of this encounter Visit Diagnoses Not on filedocumented in this encounter
--- OUTSIDE RECORDS SUMMARY | 2025-10-13 15:59 | XMS_ITS | Patient Health Record ---
Author Organization [facility] Address [address] [place] [address] Care Team Providers Care Cannon Fire Direction Specialist Name Role Phone John STEVE, Brandon Primary Care Provider UnavailCachorro Hart Unavailable [phone] Fouzia Lemus Unavailable [phone] Allergies Allergen (clinical drug ingredient) Drug/Non Drug [...] Results Component Value Reference Range Flag Notes Urine Drug Screen (cup read) - [id number] Reviewed date:05/18/2025 10:01:49 AM Interpretation: Performing Lab: Notes/Report: OPI + Tox Results Reviewed date:07/18/2025 01:13:48 PM Interpretation: Performing Lab: Notes/Report: Tox Results Reviewed date:03/16/2025 03:47:17 PM Interpretation: Performing Lab: Notes/Report: Urine Drug Screen (cup read) - [id number] Reviewed date:03/08/2025 12:57:24 PM Interpretation: Performing Lab: Notes/Report: OPI Pos Urine Confirmation Panel (in strument) - [id number] Reviewed date:03/16/2025 03:40:55 PM Interpretation: Performing Lab: [...] by the U.S. Food and Drug Administration. Schedule Confirmation Reviewed date:08/31/2025 10:35:08 AM Interpretation: Performing Lab: Notes/Report: MRI Lumbar Spine w/o Cont Urine Drug Screen (cup read) - [id number] Reviewed date:07/13/2025 08:06:34 AM Interpretation: Performing Lab: Notes/Report: OPI + Urine Confirmation Panel (in strument) - [id number] Reviewed date:07/18/2025 12:36:03 PM Interpretation: Performing Lab: [...] by the U.S. Food and Drug Administration. Schedule Confirmation Reviewed date:08/31/2025 10:35:08 AM Interpretation: Performing Lab: Notes/Report: MRI Lumbar Spine w/o Cont MRI Lumbar Spine w/o Cont-72 148 Reviewed date:01/02/2025 09:22:18 AM Interpretation: Performing Lab: Notes/Report: See Below For Report Technique: Sagittal and axial T1 and T2 and sagittal STIR images of Diagnosis Description: Spondylosis without myelopathy or radiculopathy, lumbar region Read See Below For Report zzzUrine Drug Screen (confir mation by instrument) - [id number] Reviewed date:11/22/2024 01:59:31 PM Interpretation: Performing Lab: Notes/Report: MRI Lumbar Spine w/o Cont-72 148 Reviewed date:01/02/2025 09:22:22 AM Interpretation: Performing Lab: Notes/Report: [email or web address] Reason For Referral No Information Medications Medication [...] a day; Duration: 90 days 11/02/2020 Unknown [place] 5-325 MG Tablet 1 tablet as needed Orally every 6 hrs; Duration: 10 days 09/28/2020 Unknown [place] 5-325 MG Tablet 1 tablet as needed Orally every 6 hrs; Duration: 7 days 09/05/2020 Unknown Omeprazole *Pick strength-f orm from [facility] for eRX* Unknown Omeprazole Omeprazole 10/25/2011 Unknown Amlodipine *Reorder from [facility] for eRx and Interaction Alerts* Unknown rivaroxaban 20 MG Oral Tablet rivaroxaban 20 MG Oral Tablet 07/14/2018 Unknown 24 HR Metoprolol Tartrate 25 MG Extended Release Tablet 24 HR Metoprolol Tartrate 25 MG Extended Release Tablet 07/14/2018 Unknown Omeprazole 40 MG Enteric Coated Capsule Omeprazole 40 MG Enteric Coated Capsule 07/14/2018 Unknown [place] 5-325 MG Tablet 1 tablet as needed Orally q8h; Duration: 30 days dx: back pain with radiculopathy, s/p lumbar laminectomy 03/21/2020 Unknown [place] 5-325 MG Tablet 1 tablet as needed Orally every 6 hrs; Duration: 30 days 02/29/2020 Unknown [place] 5-325 MG Tablet 1 tablet as needed Orally every 12 hrs; Duration: 15 days 07/03/2020 Unknown [place] 5-325 MG Tablet 1 tablet as needed Orally every 8 hrs; Duration: 10 days 05/30/2020 Unknown [place] 5-325 MG Tablet 1 tablet as needed Orally q12 h; Duration: 14 days 08/02/2020 Unknown Lisinopril *Pick strength-f orm from [facility] for eRX* Unknown Lisinopril 20 MG Oral Tablet Lisinopril 20 MG Oral Tablet 07/14/2018 Unknown Lisinopril Lisinopril 03/18/2012 Unknown Misc. 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 analgesic (Z79.891) Active confirmed Problem Information temporarily unavailable Spondylolisthesis at L5-S1 level (M43.17) Active confirmed Problem Information temporarily unavailable Degeneration of intervertebral disc of lumbar region with discogenic back pain (M51.360) Active confirmed Problem Information temporarily unavailable Tachycardia, unspecified (785.0) Active confirmed [id number] 911- Problem Information temporarily unavailable Lumbar osteoarthritis (721.3) 017 Active confirmed [id number] 911- Problem Information temporarily unavailable Aortic valve stenosis (424.1) Active confirmed Dhiraj-985 911- Problem Information temporarily unavailable BPH (600.00) Active confirmed [id number] 911- Problem Information temporarily unavailable Coronary artery disease (414.01) Active confirmed Dhiraj-985 911- Problem Information temporarily unavailable Essential hypertension (401.1) Active confirmed Dhiraj-985 911- Problem Information temporarily unavailable Coronary atherosclerosis of [place] coronary a (414.01) 012 Active confirmed Dhiraj-103 [...] 911- Problem Information temporarily unavailable COPD (496) Problem resolved confirmed [id number] 911- Problem Information temporarily unavailable External cerumen impaction (380.4) Problem resolved confirmed [id number] 911- Problem Information temporarily unavailable Lipoma, unspecified site (214.9) Problem resolved confirmed Dhiraj-985 911- Vital Signs Height-cm 175.26 cm 09/06/2025 Weight-kg 93.44 kg 09/06/2025 Height 69 in 09/06/2025 Weight 206 lbs 09/06/2025 BMI 30.42 kg/m2 09/06/2025 Encounters Encounter Location Date Provider Diagnosis [facility] [address] [address] 09/06/2025 Cachorro Brito Chronic pain syndrom e G89.4 ; Spondylosis without myelopathy or radiculopathy, lumbar region M47.816 ; 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 ; Radiculopathy, lumbosacral region M54.17 ; Sacroiliitis, not elsewhere classified M46.1 ; Postlaminectomy syndrome, not elsewhere classified M96.1 ; FCI (current) use of opiate analgesic Z79.891 ; Osteoarthritis of knee, unspecified M17.9 ; Unspecified abnormalities of gait and mobility R26.9 and Peripheral vascular disease, unspecified I73.9 [facility] [address] [address] 07/13/2025 Fouzia Lemus Chronic pain syndrom e G89.4 ; 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 ; Radiculopathy, lumbosacral region M54.17 ; Sacroiliitis, not elsewhere classified M46.1 ; Postlaminectomy syndrome, not elsewhere classified M96.1 ; Osteoarthritis of knee, unspecified M17.9 ; Unspecified abnormalities of gait and mobility R26.9 ; FCI (current) use of opiate analgesic Z79.891 ; Spondylosis without myelopathy or radiculopathy, lumbar region M47.816 and Peripheral vascular disease, unspecified I73.9 [facility] [address] [address] 05/18/2025 Fouzia Lemus Chronic pain syndrom e G89.4 ; 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 ; Radiculopathy, lumbosacral region M54.17 ; Sacroiliitis, not elsewhere classified M46.1 ; Postlaminectomy syndrome, not elsewhere classified M96.1 ; Osteoarthritis of knee, unspecified M17.9 ; Unspecified abnormalities of gait and mobility R26.9 ; exterminator helper (current) use of opiate analgesic Z79.891 ; Spondylosis without myelopathy or radiculopathy, lumbar region M47.816 and Peripheral vascular disease, unspecified I73.9 [facility] [address] [address] 03/08/2025 Cachorro Moet Chronic pain syndrom e G89.4 ; 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 ; Radiculopathy, lumbosacral region M54.17 ; Sacroiliitis, not elsewhere classified M46.1 ; Postlaminectomy syndrome, not elsewhere classified M96.1 ; Osteoarthritis of knee, unspecified M17.9 ; Peripheral vascular disease, unspecified I73.9 ; Unspecified abnormalities of gait and mobility R26.9 ; FCI (current) use of opiate analgesic Z79.891 and Spondylosis without myelopathy or radiculopathy, lumbar region M47.816 [facility] [address] [address] 01/04/2025 Cachorro Moet Chronic pain syndrom e G89.4 ; Degeneration [...] abnormalities of gait and mobility R26.9 and FCI (current) use of opiate analgesic Z79.891 [facility] [address] [address] 12/14/2024 Cachorro Barnettfft Chronic pain syndrom e G89.4 ; Degeneration [...] abnormalities of gait and mobility R26.9 and exterminator helper (current) use of opiate analgesic Z79.891 [facility] [place] [address] [place] [address] 11/17/2024 Fouzia Allan Chronic pain syndrom e [...] abnormalities of gait and mobility R26.9 and exterminator helper (current) use of opiate analgesic Z79.891 [facility] [place] [address] [place] [address] 07/13/2025 Cachorro Brito Spondylosis without myelopathy or radiculopathy, lumbar region M47.816 [facility] [place] [address] [place] [address] 05/18/2025 Cachorro Brito [facility] [place] [address] [place] [address] 04/03/2025 Cachorro Brito Spondylosis without myelopathy or radiculopathy, lumbar region M47.816 [facility] [place] [address] [place] [address] 03/23/2025 Cachorro Brito Spondylosis without myelopathy or radiculopathy, lumbar region M47.816 [facility] [place] [address] [facility] [place] [address] 01/12/2025 Cachorro Brito Radiculopathy, lumbosacral region M54.17 [facility] [place] [address] [facility] [place] [address] 12/14/2024 Cachorro Brito [facility] [place] [address] [place] [facility] [address] 12/08/2024 Cachorro Brito Spondylosis without myelopathy or radiculopathy, lumbar region M47.816 [facility] [address] [place] [address] 11/28/2024 Cachorro Brito [facility] [place] [address] [place] [place] [address] 11/17/2024 Cachorro Brito Spondylosis without myelopathy or radiculopathy, [...] to monitor for treatment effectiveness and compliance. 12/08/2024 Spondylosis without myelopathy or radiculopathy, lumbar region (ICD-10 - M47.816) 12/14/2024 Chronic pain syndrome (ICD-10 - G89.4) [...] hopefully review the MRI at that point. 01/12/2025 Radiculopathy, lumbosacral region (ICD-10 - M54.17) 03/08/2025 Chronic pain syndrome (ICD-10 - G89.4) [...] with discogenic back pain (ICD-10 - M51.360) 03/23/2025 Spondylosis without myelopathy or radiculopathy, lumbar region (ICD-10 - M47.816) 07/13/2025 Chronic pain syndrome (ICD-10 - G89.4) [...] effects are noted. Last UDS and AR STOCK SELECTOR reviewed today. Patient is advised that best [...] to abide by our urine testing policy. 09/06/2025 Chronic pain syndrome (ICD-10 - G89.4) [...] response to previous medial branch rhizotomies atL4-5 L5-G6tilbqa on 06/30/2025 (RT) with at least 60% [...] the procedure and all questions were answered. 05/18/2025 Chronic pain syndrome (ICD-10 - G89.4) [...] to monitor for treatment effectiveness and compliance 05/18/2025 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) 04/03/2025 Spondylosis without myelopathy or radiculopathy, lumbar region (ICD-10 - M47.816) 01/04/2025 Chronic pain syndrome (ICD-10 - G89.4) [...] and what is contributing to his symptoms. 05/18/2025 Radiculopathy, lumbosacral region (ICD-10 - M54.17) 09/06/2025 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) 07/13/2025 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) 07/13/2025 Spondylosis without myelopathy or radiculopathy, lumbar region (ICD-10 - M47.816) 03/08/2025 Radiculopathy, lumbosacral region (ICD-10 - M54.17) 12/14/2024 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) 11/17/2024 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) 01/04/2025 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) 12/14/2024 Radiculopathy, lumbosacral region (ICD-10 - M54.17) 11/17/2024 Radiculopathy, lumbosacral region (ICD-10 - M54.17) 03/08/2025 Sacroiliitis, not elsewhere classified (ICD-10 - M46.1) 07/13/2025 Radiculopathy, lumbosacral region (ICD-10 - M54.17) 09/06/2025 Radiculopathy, lumbosacral region (ICD-10 - M54.17) 05/18/2025 Sacroiliitis, not elsewhere classified (ICD-10 - M46.1) 01/04/2025 Radiculopathy, lumbosacral region (ICD-10 - M54.17) 05/18/2025 Postlaminectomy syndrome, not elsewhere classified (ICD-10 - M96.1) 09/06/2025 Sacroiliitis, not elsewhere classified (ICD-10 - M46.1) 07/13/2025 Sacroiliitis, not elsewhere classified (ICD-10 - M46.1) 12/14/2024 Spondylosis without myelopathy or radiculopathy, lumbar region (ICD-10 - M47.816) 03/08/2025 Postlaminectomy syndrome, not elsewhere classified (ICD-10 - M96.1) 11/17/2024 Spondylosis without myelopathy or radiculopathy, lumbar region (ICD-10 - M47.816) 01/04/2025 Spondylosis without myelopathy or radiculopathy, lumbar region (ICD-10 - M47.816) 11/17/2024 Sacroiliitis, not elsewhere classified (ICD-10 - M46.1) 12/14/2024 Sacroiliitis, not elsewhere classified (ICD-10 - M46.1) 03/08/2025 Osteoarthritis of knee, unspecified (ICD-10 - M17.9) 07/13/2025 Postlaminectomy syndrome, not elsewhere classified (ICD-10 - M96.1) 05/18/2025 Osteoarthritis of knee, unspecified (ICD-10 - M17.9) 09/06/2025 Postlaminectomy syndrome, not elsewhere classified (ICD-10 - M96.1) 01/04/2025 Sacroiliitis, not elsewhere classified (ICD-10 - M46.1) 01/04/2025 Postlaminectomy syndrome, not elsewhere classified (ICD-10 - M96.1) 05/18/2025 Unspecified abnormalities of gait and mobility (ICD-10 - R26.9) 09/06/2025 FCI (current) use of opiate analgesic (ICD-10 - Z79.891) 07/13/2025 Osteoarthritis of knee, unspecified (ICD-10 - M17.9) 03/08/2025 Peripheral vascular disease, unspecified (ICD-10 - I73.9) 12/14/2024 Postlaminectomy syndrome, not elsewhere classified (ICD-10 - M96.1) 11/17/2024 Postlaminectomy syndrome, not elsewhere classified (ICD-10 - M96.1) 12/14/2024 Osteoarthritis of knee, unspecified (ICD-10 - M17.9) 11/17/2024 Osteoarthritis of knee, unspecified (ICD-10 - M17.9) 03/08/2025 Unspecified abnormalities of gait and mobility (ICD-10 - R26.9) 07/13/2025 Unspecified abnormalities of gait and mobility (ICD-10 - R26.9) 09/06/2025 Osteoarthritis of knee, unspecified (ICD-10 - M17.9) 05/18/2025 exterminator helper (current) use of opiate analgesic (ICD-10 - [...] has been made aware of this policy. 01/04/2025 Osteoarthritis of knee, unspecified (ICD-10 - M17.9) 05/18/2025 Spondylosis without myelopathy or radiculopathy, lumbar region (ICD-10 - M47.816) 01/04/2025 Peripheral vascular disease, unspecified (ICD-10 - I73.9) 09/06/2025 Unspecified abnormalities of gait and mobility (ICD-10 - R26.9) 07/13/2025 exterminator helper (current) use of opiate analgesic (ICD-10 - Z79.891) 03/08/2025 FCI (current) use of opiate analgesic (ICD-10 - Z79.891) 12/14/2024 Peripheral vascular disease, unspecified (ICD-10 - I73.9) 11/17/2024 Peripheral vascular disease, unspecified (ICD-10 - I73.9) 11/17/2024 Unspecified abnormalities of gait and mobility (ICD-10 - R26.9) 12/14/2024 Unspecified abnormalities of gait and mobility (ICD-10 - R26.9) 03/08/2025 Spondylosis without myelopathy or radiculopathy, lumbar region (ICD-10 - M47.816) 07/13/2025 Spondylosis without myelopathy or radiculopathy, lumbar region (ICD-10 - M47.816) 09/06/2025 Peripheral vascular disease, unspecified (ICD-10 - I73.9) 05/18/2025 Peripheral vascular disease, unspecified (ICD-10 - I73.9) 01/04/2025 Unspecified abnormalities of gait and mobility (ICD-10 - R26.9) 01/04/2025 FCI (current) use of opiate analgesic (ICD-10 - Z79.891) 07/13/2025 Peripheral vascular disease, unspecified (ICD-10 - I73.9) 12/14/2024 exterminator helper (current) use of opiate analgesic (ICD-10 - Z79.891) 11/17/2024 exterminator helper (current) use of opiate analgesic (ICD-10 - Z79.891) 12/14/2024 Other Reinier, Anish Polanco, am scribing for Dr. Cachorro Brito. I, Dr. Cachorro Brito, personally performed the services described in this documentation, as scribed by Anish Polanco, and it is both accurate and complete. 01/04/2025 Other Anish Hills, am scribing for Dr. Cachorro Brito. I, Dr. Cachorro Brito, personally performed the services described in this documentation, as scribed by Anish Polanco, and it is both accurate and complete. 03/08/2025 Other Reinier, SUSAN Cano, am scribing for Dr. Cacohrro Brito. I, Dr. Cachorro Brito, personally performed the services described in this documentation, as scribed by SUSAN Cano , and it is both accurate and complete. 09/06/2025 Other Reinier, Flakita Tavarez, cherise scribing for Dr. Cachorro Brito. I, Dr. Cachorro Brito, personally performed the services described in this documentation, as scribed by Flakita Tavarez, and it is both accurate and complete. Plan Of Treatment Pending Test Test Name Order Date Blood Urea Nitrogen (BUN) 55815 07/24/20 20 Creatinine (B) 28064 07/24/2020 COVID 19 PCR--[id number] 02/13/2020 Future Test Test Name Order Date Neurotomy Lumbar/Sacral, 2 or more level s - 45766, 52354 09/09/2025 Insurance Providers Payer Name Payer Address Payer Phone Subscriber Number Group Number Insured Name Patient Relationship to Insured Coverage Start Date Coverage End Date [place] [address] [address] [place] [address] [id number] [place] Self - patient is the insured for Life SEC to Medicare [address] [place] [address] [id number] Darlene Anish Self - patient is the insured [facility] Commercial [address] [place] [address] [id number] Anish Colon Self - patient is the [...] :: A ctive Surgical History Surgery Date(Month/Year) Fundoplication prostate surgery Thoracotomy Hernia repair Gallbladder surgery Cataract surgery Back surgery L4-S1 foraminotomies 02/2020 L4-5 laminectomy 02/2020 Open heart surgery
--- OUTSIDE RECORDS SUMMARY | 2025-10-13 15:59 | XMS_ITS | Clinical Summary ---
Author Organization [facility] Address [address] [place] [address] Care Team Providers Care Sales And Marketing Manager Name Role Phone Unavailable Primary Care Provider [...] on file Legal Sex Male 10:27 AM BUYER Gender Identity Not on file Sexual Orientation Not on file Last Filed Vital Signs Vital Sign Reading Time Taken Comments Blood Pressure 150/76 11/16/2013 9:57 AM BUYER Pulse 74 10/25/2013 10:08 AM BUYER Temperature - - Respiratory Rate - - Oxygen Saturation - - Inhaled Oxygen Concentration - - Weight 87.1 kg (192 lb) 11/16/2013 9:57 AM BUYER Height 175.3 cm (5' 9 ) 11/16/2013 9:57 AM BUYER Body Mass Index 28.35 11/16/2013 9:57 AM BUYER Plan of Treatment Health Maintenance Due Date Last Done Comments DTAP/TDAP/TD VACCINES (1 - Tdap) 1959 PNEUMOCOCCAL VACCINE 50+ YEARS (1 of 1 - PCV) 06/07/19 89 ZOSTER VACCINE (1 of 2) 1989 RSV VACCINE (60+ or ) (1 - 1-dose 75+ series) 2014 INFLUENZA VACCINE (#1) 2025 Insurance MEDICARE PART A AND B [employer]
--- OUTSIDE RECORDS SUMMARY | 2025-10-13 15:59 | XMS_ITS | Encounter Summary ---
Author Organization [facility] Address [address] [place] [address] Phone Care Team Providers Care Radiographer Cardiac Catheterization Name Role Phone Unavailable Primary Care Provider Unavailabl e Encounter Details Date Type Department Care Team (Late st Contact Info) Description 10/09/2025 Orders Only [facility] [address] [place] [address] Tabby Carmona MD [address] [place] [address] Social History Tobacco Use Types Packs/Day Years Used Date Smoking Tobacco: Never Assessed Sex and Gender Information Value Date Recorded Sex Assigned at Not on file Legal Sex Male 11:48 AM EST Gender Identity Not on file Sexual Orientation Not on file documented as of this encounter Plan of Treatment Pending Results Name Type Priority Associated Diagnoses Date /Time Creatinine, urine, timed Lab Routine 10/09/2025 Creatinine Clearance, Normalized Lab Routine 10/09/2025 Aluminum level Lab Routine 10/09/2025 documented as of this encounter Procedures Procedure Name Priority Date/Time Associated Diagnosis Comments IRON AND TIBC Routine 10/09/2025 HEPATITIS B SURFACE AB IMMUNITY Routine 10/09/2025 HEPATITIS C AB W/REFL TO HCV RNA, QN, PCR (REFL) Routine 10/09/2025 HEPATITIS B SURFACE ANTIGEN W/REFL CONFIRM Routine 10/09/2025 SPECTRA RADHA LAB RESULTS Routine 10/09/2025 POST DIALYSIS BUN Routine 10/09/2025 HEPATITIS B CORE AB TOTAL Routine 10/09/2025 DIFFERENTIAL WITH WBC Routine 10/09/2025 PLATELET COUNT Routine 10/09/2025 CBC Routine 10/09/2025 BUN Routine 10/09/2025 PROTEIN, TOTAL, SERUM Routine 10/09/2025 PHOSPHATE ( PHOSPHORUS) Routine 10/09/2025 ALKALINE PHOSPHATASE Routine 10/09/2025 PTH, INTACT Routine 10/09/2025 MAGNESIUM Routine 10/09/2025 FERRITIN Routine 10/09/2025 CALCIUM Routine 10/09/2025 ALBUMIN Routine 10/09/2025 documented in this encounter Results * Spectra Lab Results (10/09/2025) Pathologist [facility] WSTDKT/V 0.7 [facility] eKt/V ([place]) 1.01 [facility] spKt/V (Daugirdas II) 1.22 [facility] 10/09/2025 10/09/2025 [facility] Ordering Provider LAB BLOOD ORDERABLES Final Result [facility] Contact Performing lab Unknown, [place] * (ABNORMAL) Ferritin (10/09/2025) Pathologist [facility] Ferritin 392(H) 24 - 380 ng/mL [facility] 10/09/2025 10/08/2025 2:3 4 PM SYSTEMS TESTER Narrative Resulting Agency Comment Performing Organization Information: Site ID: [id number] Name: [facility] Address: [address] [place] [phone] Director: Marianne Lawson MD us Tabby Carmona MD LAB BLOOD ORDERABLES Final Re sult Performing Organization Address [facility] Co de Phone Number [facility] [phone] * (ABNORMAL) PTH, Intact (10/09/2025) Parathyroid Hormone, Intact 257(H) 16 - 77 pg/mL [facility] Comment: Interpretive Guide Intact PTH Calcium ------- Normal Parathyroid Normal Normal Hypoparathyroidism Low or Low Normal Low Hyperparathyroidism Primary Normal or High High Secondary High Normal or Low Tertiary High High Non-Parathyroid Hypercalcemia Low or Low Normal High 10/09/2025 10/08/2025 2:3 4 PM SYSTEMS TESTER Narrative Resulting Agency Comment Performing Organization Information: Site ID: [id number] Name: [facility] Address: [address] [place] [phone] Director: Marianne Lawson MD us Tabby Carmona MD LAB BLOOD ORDERABLES Final Re sult Performing Organization Address [facility] Co de Phone Number [facility] [phone] * HEPATITIS C AB W/REFL TO HCV RNA, QN, PCR (REFL) (10/09/2025) Hepatitis C Antibody NON-REACTI VE NON-REACT LISSETTE [facility] Comment: HCV antibody was non-reactive. There is no laboratory evidence of HCV infection. In most cases, no further action is required. However, if recent HCV exposure is suspected, a test for HCV RNA (test code 96316) is suggested. For additional information please refer to http://education.Onfido/faq/BLK02l3 (This link is being provided for informational/ educational purposes only.) 10/09/2025 10/08/2025 2:3 4 PM SYSTEMS TESTER Narrative Resulting Agency Comment Performing Organization Information: Site ID: AMEE Name: [facility] Address: [address] [place] [phone] Director: Marianne Lawson MD Tabby Carmona MD LAB DIVEKHSLYM-VGCQHJYDINA-MD SOLICITED RESULTS Final Result Performing Organization Address City/[facility]/ZIP Co de Phone Number [facility] [address] [place] [phone] * (ABNORMAL) Hepatitis B Surface Ab Immunity (10/09/2025) Hepatitis B Surface Ab <5(L) > OR = 10 mIU/mL [facility] Comment: Patient does not have immunity to hepatitis B virus. 10/09/2025 10/08/2025 2:3 4 PM SYSTEMS TESTER Narrative Resulting Agency Comment Performing Organization Information: Site ID: AMEE Name: [facility] Address: [address] [place] [phone] Director: Marianne Lawson MD Tabby Carmona MD LAB BLOOD ORDERABLES Final Re sult Performing Organization Address [facility]/ZIP Co de Phone Number [facility] [address] [place] [phone] * Hepatitis B Core Antibody, Total (10/09/2025) HBc Total Ab, S NON-REACTI VE NON-REACTI VE [facility] Comment: For additional information, please refer to http://[employer].Onfido/faq/YKO354 (This link is being provided for informational/ educational purposes only.) 10/09/2025 10/08/2025 2:3 4 PM SYSTEMS TESTER Narrative Resulting Agency Comment Performing Organization Information: Site ID: AMEE Name: [facility] Address: [address] [place] [phone] Director: Marianne Lawson MD Tabby Carmona MD LAB BLOOD ORDERABLES Final Re sult Performing Organization Address [facility] Co de Phone Number [facility] [phone] * Hepatitis B Surface Ag w/Reflex Confirmation (10/09/2025) Hep B Surface Antigen NON-REACTI VE NON-REACTI VE [facility] Comment: For additional information, please refer to http://education.Onfido/faq/BKH730 (This link is being provided for informational/ educational purposes only.) 10/09/2025 10/08/2025 2:3 4 PM SYSTEMS TESTER Narrative Resulting Agency Comment Performing Organization Information: Site ID: AMEE Name: [facility] Address: [address] [place] [phone] Director: Marianne Lawson MD Tabby Carmona MD LAB BLOOD ORDERABLES Final Re sult Performing Organization Address [facility] de Phone Number [facility] [phone] * (ABNORMAL) Differential with WBC (10/09/2025) WBC 7.9 3.8 - 10.8 Thousand/u L [facility] Comment: White blood cell count corrected for presence of nucleated red blood cells. Neutrophils Absolute 6,320 1,500 - 7,800 cells/uL [facility] Lymphocytes Absolute 1,027 850 - 3,900 cells/uL [facility] Monocytes Absolute 553 200 - 950 cells/uL [facility] Eosinophils Absolute 0(L) 15 - 500 cells/uL [facility] Basophils Absolute 0 0 - 200 cells/uL [facility] NRBC Absolute 395(H) 0 cells/uL [facility] Neutrophils Relative 80 % [facility] Lymphocytes 13 % [facility] Monocytes 7 % [facility] Eosinophils 0 % [facility] Basophils Relative 0 % [facility] nRBC 5(H) 0 /100 WBC [facility] Comment(s) [facility] Comment: Macrocytosis 2 + Polychromasia 1 + Crenated red blood cells 1 + Pappenheimer bodies 1 + The smear has been manually reviewed and the manual differential has been reported. 10/09/2025 10/08/2025 2:3 4 PM SYSTEMS TESTER Narrative Resulting Agency Comment Performing Organization Information: Site ID: [place] Name: [facility] Address: [id number] [place] [address] [place] [address] Director: Marianne Lawson MD Tabby Carmona MD LAB BLOOD ORDERABLES Final Re sult [facility] [id number] [place] [address] [place] [address] * (ABNORMAL) CBC (10/09/2025) WBC 7.9 3.8 - 10.8 Thousand/u L [facility] Comment: White blood cell count corrected for presence of nucleated red blood cells. RBC 3.10(L) 4.20 - 5.80 Million/uL [facility] Hemoglobin 10.4(L) 13.2 - 14.0 g/dL [facility] Hematocrit 32.5(L) 39.4 - 51.1 % [facility] MCV 104.8(H) 81.4 - 101.7 fL [facility] MCH 33.5(H) 27.0 - 33.0 pg [facility] MCHC 32.0 31.6 - 35.4 g/dL [facility] RDW 17.5(H) 11.0 - 15.0 % [facility] 10/09/2025 10/08/2025 2:3 4 PM SYSTEMS TESTER Narrative Resulting Agency Comment Performing Organization Information: Site ID: [id number] Name: [facility] Address: [address] [place] [phone] Director: Marianne Lawson MD Tabby Carmona MD LAB BLOOD ORDERABLES Final Re sult Performing Organization Address [facility]/ZIP Co de Phone Number [facility] [address] [place] [phone] * (ABNORMAL) Platelet count (10/09/2025) Platelets 32(L) 140 - 400 Thousand/u L [facility] Comment: Review of the peripheral smear reveals decreased numbers of platelets. 10/09/2025 10/08/2025 2:3 4 PM SYSTEMS TESTER Narrative Resulting Agency Comment Performing Organization Information: Site ID: AMEE Name: [facility] Address: [address] [place] [phone] Director: Marianne Lawson MD us Tabby Carmona MD LAB BLOOD ORDERABLES Final Re sult Performing Organization Address [facility] Co de Phone Number [facility] [address] [place] [phone] * Post Dialysis BUN (10/09/2025) BUN Post Dialysis 23 7 - 25 mg/dL [facility] 10/09/2025 10/08/2025 2:3 4 PM SYSTEMS TESTER Narrative Resulting Agency Comment Performing Organization Information: Site ID: AMEE Name: [facility] Address: [address] [place] [phone] Director: Marianne Lawson MD us Tabby Carmona MD LAB BLOOD ORDERABLES Final Re sult Performing Organization Address [facility] Co de Phone Number [facility] [address] [place] [phone] * (ABNORMAL) Iron and TIBC (10/09/2025) Pathologist [facility] Iron, Total 52 50 - 180 mcg/dL [facility] TIBC 301 250 - 425 mcg/dL (calc) [facility] Iron Saturation (TSat) 17(L) 20 - 48 % (calc) [facility] 10/09/2025 10/08/2025 2:3 4 PM SYSTEMS TESTER Narrative Resulting Agency Comment Performing Organization Information: Site ID: AMEE Name: [facility] Address: [address] [place] [phone] Director: Marianne Lawson MD us Tbaby Carmona MD LAB BLOOD ORDERABLES Final Re sult Performing Organization Address [facility] Co de Phone Number [facility] [address] [place] [phone] * (ABNORMAL) Magnesium (10/09/2025) [facility] Magnesium 2.8(H) 1.6 - 2.5 mg/dL [facility] 10/09/2025 10/08/2025 2:3 4 PM SYSTEMS TESTER Narrative Resulting Agency Comment Performing Organization Information: Site ID: AMEE Name: [facility] Address: [address] [place] [phone] Director: Marianne Lawson MD Tabby Carmona MD LAB BLOOD ORDERABLES Final Re sult Performing Organization Address [facility] de Phone Number [facility] [id number] [place] [phone] * Albumin (10/09/2025) [facility] Albumin 3.6 3.6 - 5.1 g/dL [facility] 10/09/2025 10/08/2025 2:3 4 PM SYSTEMS TESTER Narrative Resulting Agency Comment Performing Organization Information: Site ID: AMEE Name: [facility] Address: [address] [place] [phone] Director: Marianne Lawson MD us Tabby Carmona MD LAB BLOOD ORDERABLES Final Re sult Performing Organization Address [facility] Co de Phone Number [facility] [id number] [place] [phone] * (ABNORMAL) Protein, total (10/09/2025) Total Protein 6.0(L) 6.1 - 8.1 g/dL [facility] 10/09/2025 10/08/2025 2:3 4 PM SYSTEMS TESTER Narrative Resulting Agency Comment Performing Organization Information: Site ID: AMEE Name: [facility] Address: [address] [place] [phone] Director: Marianne Lawson MD us Tabby Carmona MD LAB BLOOD ORDERABLES Final Re sult Performing Organization Address [facility] Number [facility] [address] [place] [phone] * (ABNORMAL) Alkaline phosphatase (10/09/2025) Alkaline Phosphatase 455(H) 35 - 144 U/L [facility] 10/09/2025 10/08/2025 2:3 4 PM SYSTEMS TESTER Narrative Resulting Agency Comment Performing Organization Information: Site ID: AMEE Name: [facility] Address: [address] [place] [phone] Director: Marianne Lawson MD us Tabby Carmona MD LAB BLOOD ORDERABLES Final Re sult Performing Organization Address [facility] Co de Phone Number [facility] [id number] [place] [phone] * (ABNORMAL) Phosphorus (10/09/2025) Phosphorus 6.0(H) 3.0 - 4.3 mg/dL [facility] 10/09/2025 10/08/2025 2:3 4 PM SYSTEMS TESTER Narrative Resulting Agency Comment Performing Organization Information: Site ID: AM[facility] Name: [facility] Address: [address] [place] [phone] Director: Marianne Lawson MD Tabby Carmona MD LAB BLOOD ORDERABLES Final Re sult Performing Organization Address [facility] Co de Phone Number [facility] [address] [place] [phone] * (ABNORMAL) Calcium (10/09/2025) Calcium 8.4(L) 8.6 - 10.0 mg/dL [facility] 10/09/2025 10/08/2025 2:3 4 PM SYSTEMS TESTER Narrative Resulting Agency Comment Performing Organization Information: Site ID: AMEE Name: [facility] Address: [address] [place] [phone] Director: Marianne Lawson MD Tabby Carmona MD LAB BLOOD ORDERABLES Final Re sult Performing Organization Address [facility] Co de Phone Number [facility] [address] [place] [phone] * (ABNORMAL) BUN (10/09/2025) BUN 71(H) 7 - 25 mg/dL [facility] 10/09/2025 10/08/2025 2:3 4 PM SYSTEMS TESTER Narrative Resulting Agency Comment Performing Organization Information: Site ID: [place] Name: [facility] Address: [address] [place] [address] Director: Marianne Lawson MD us Tabby Carmona MD LAB BLOOD ORDERABLES Final Re sult [facility] [address] [place] [address] documented in this encounter Visit Diagnoses Not on filedocumented in this encounter
--- OUTSIDE RECORDS SUMMARY | 2025-10-13 15:59 | XMS_ITS | Clinical Summary ---
Author Organization [facility] Facility Address [address] [place] [address] Care Team Providers Care Stereo Equipment Installer Name Role Phone Unavailable Primary Care Provider Unavailabl e Encounters Date Type Department Care Team Description 10/09/2025 Orders Only [facility] [address] [place] [address] Tabby Carmona MD 10/09/2025 Treatment [facility] [address] [place] [address] Tabby Carmona MD 10/05/2025 Orders Only [facility] [address] [place] [address] Tabby Carmona MD from Last 3 Months Social History Tobacco Use Types Packs/Day Years Used Date Smoking Tobacco: Never Assessed Sex and Gender Information Value Date Recorded Sex Assigned at Not on file Legal Sex Male 11:48 AM EST Gender Identity Not on file Sexual Orientation Not on file Plan of Treatment Health Maintenance Due Date Last Done Comments Hepatitis B Vaccine (1 of 5 - Risk Dialysis 4-dose series) 1960 Pneumococcal Vaccine: 50+ Years Completed , 10/19/2015 Influenza Vaccine Completed 07/21/2025, , 07/20/2019, Additional history exists Procedures Procedure Name Priority Date/Time Associated Diagnosis Comments SPECTRA RADHA LAB RESULTS Routine 10/09/2025 FERRITIN Routine 10/09/2025 PTH, INTACT Routine 10/09/2025 HEPATITIS C AB W/REFL TO HCV RNA, QN, PCR (REFL) Routine 10/09/2025 HEPATITIS B SURFACE AB IMMUNITY Routine 10/09/2025 HEPATITIS B CORE AB TOTAL Routine 10/09/2025 HEPATITIS B SURFACE ANTIGEN W/REFL CONFIRM Routine 10/09/2025 DIFFERENTIAL WITH WBC Routine 10/09/2025 CBC Routine 10/09/2025 PLATELET COUNT Routine 10/09/2025 POST DIALYSIS BUN Routine 10/09/2025 IRON AND TIBC Routine 10/09/2025 MAGNESIUM Routine 10/09/2025 ALBUMIN Routine 10/09/2025 PROTEIN, TOTAL, SERUM Routine 10/09/2025 ALKALINE PHOSPHATASE Routine 10/09/2025 PHOSPHATE ( PHOSPHORUS) Routine 10/09/2025 CALCIUM Routine 10/09/2025 BUN Routine 10/09/2025 PTH, INTACT Routine 10/05/2025 DIFFERENTIAL WITH WBC Routine 10/05/2025 CBC Routine 10/05/2025 PLATELET COUNT Routine 10/05/2025 from Last 3 Months Results * (ABNORMAL) Iron and TIBC (10/09/2025) Pathologist [facility] Iron, Total 52 50 - 180 mcg/dL [facility] TIBC 301 250 - 425 mcg/dL (calc) [facility] Iron Saturation (TSat) 17(L) 20 - 48 % (calc) [facility] 10/09/2025 10/08/2025 2:3 4 PM MANAGER SHOP Narrative Resulting Agency Comment Performing Organization Information: Site ID: AMEE Name: [facility] Address: [address] [place] [phone] Director: Marianne Lawson MD Tabby Carmona MD LAB BLOOD ORDERABLES Final Re sult Performing Organization Address [facility]/ZIP Co de Phone Number [facility] [address] * (ABNORMAL) Hepatitis B Surface Ab Immunity (10/09/2025) Hepatitis B Surface Ab <5(L) > OR = 10 mIU/mL [facility] Comment: Patient does not have immunity to hepatitis B virus. 10/09/2025 10/08/2025 2:3 4 PM MANAGER SHOP Narrative Resulting Agency Comment Performing Organization Information: Site ID: AMEE Name: [email or web address] Address: [address] [place] [phone] Director: Marianne Lawson MD us Tabby Carmona MD LAB BLOOD ORDERABLES Final Re sult Performing Organization Address [facility] Co de Phone Number [facility] [address] * HEPATITIS C AB W/REFL TO HCV RNA, QN, PCR (REFL) (10/09/2025) Hepatitis C Antibody NON-REACTI VE NON-REACT LISSETTE [facility] Comment: HCV antibody was non-reactive. There is no laboratory evidence of HCV infection. In most cases, no further action is required. However, if recent HCV exposure is suspected, a test for HCV RNA (test code 43538) is suggested. For additional information please refer to http://education.PureCars/faq/DLE95i5 (This link is being provided for informational/ educational purposes only.) 10/09/2025 10/08/2025 2:3 4 PM MANAGER SHOP Narrative Resulting Agency Comment Performing Organization Information: Site ID: AMEE Name: [email or web address] Address: [address] [place] [phone] Director: Marianne Lawson MD Tabby Carmona MD LAB [id number] SOLICITED RESULTS Final Result Performing Organization Address [facility] Co de Phone Number [facility] [address] * Hepatitis B Surface Ag w/Reflex Confirmation (10/09/2025) Hep B Surface Antigen NON-REACTI VE NON-REACTI VE [facility] Comment: For additional information, please refer to http://education.PureCars/faq/UPX333 (This link is being provided for informational/ educational purposes only.) 10/09/2025 10/08/2025 2:3 4 PM MANAGER SHOP Narrative Resulting Agency Comment Performing Organization Information: Site ID: AMEE Name: [email or web address] Address: [address] [place] [phone] Director: Marianne Lawson MD Tabby Carmona MD LAB BLOOD ORDERABLES Final Re sult Performing Organization Address [facility] Co de Phone Number [facility] [address] [place] [phone] * Spectra RADHA Lab Results (10/09/2025) WSTDKT/V 0.7 Knowledge Center eKt/V (Tattersall) 1.01 Knowledge Center spKt/V (Daugirdas II) 1.22 [facility] 10/09/2025 10/09/2025 Radha Ordering Provider LAB BLOOD ORDERABLES Final Result RADHA [facility] Contact Performing lab Unknown, [place] * Post Dialysis BUN (10/09/2025) Pathologist [facility] BUN Post Dialysis 23 7 - 25 mg/dL [facility] 10/09/2025 10/08/2025 2:3 4 PM MANAGER SHOP Narrative Resulting Agency Comment Performing Organization Information: Site ID: AMEE Name: [email or web address] Address: [address] [place] [phone] Director: Marianne Lawson MD Tabby Carmona MD LAB BLOOD ORDERABLES Final Re sult Performing Organization Address [facility] de Phone Number [facility] [address] [place] [phone] * Hepatitis B Core Antibody, Total (10/09/2025) Pathologist [facility] HBc Total Ab, S NON-REACTI VE NON-REACTI VE [facility] Comment: For additional information, please refer to http://education.PureCars/faq/ITM139 (This link is being provided for informational/ educational purposes only.) 10/09/2025 10/08/2025 2:3 4 PM MANAGER SHOP Narrative Resulting Agency Comment Performing Organization Information: Site ID: [place] Name: [email or web address] Address: [address] [place] [phone] Director: Marianne Lawson MD Tabby Carmona MD LAB BLOOD ORDERABLES Final Re sult Performing Organization Address [facility] Co de Phone Number [facility] [address] [place] [phone] * (ABNORMAL) Differential with WBC (10/09/2025) Only the most recent of2 resultswithin the time period is included. [facility] WBC 7.9 3.8 - 10.8 Thousand/u L [...] been reported. 10/09/2025 10/08/2025 2:3 4 PM MANAGER SHOP Narrative Resulting Agency Comment Performing Organization Information: Site ID: [place] Name: [facility] Address: [address] [place] [address] Director: Marianne Lawson MD Tabby Carmona MD LAB BLOOD ORDERABLES Final Re sult [facility] [id number] [place] [phone] * (ABNORMAL) Platelet count (10/09/2025) Only the most recent of2 resultswithin the time period is included. Pathologist [facility] Platelets 32(L) 140 - 400 Thousand/u L [facility] Comment: Review of the peripheral smear reveals decreased numbers of platelets. 10/09/2025 10/08/2025 2:3 4 PM MANAGER SHOP Narrative Resulting Agency Comment Performing Organization Information: Site ID: AMEE Name: [facility] Address: [place] [address] Director: Marianne Lawson MD us Tabby Carmona MD LAB BLOOD ORDERABLES Final Re sult [facility] [place] [address] * (ABNORMAL) CBC (10/09/2025) Only the most recent of2 resultswithin the time period is included. WBC 7.9 3.8 - 10.8 Thousand/u L [facility] 10/09/2025 10/08/2025 2:3 4 PM MANAGER SHOP Narrative Resulting Agency Comment Performing Organization Information: Site ID: AMEE Name: [facility] Address: [place] [address] Director: Marianne Lawson MD us Tabby Carmona MD LAB BLOOD ORDERABLES Final Re sult [facility] [place] [address] * (ABNORMAL) BUN (10/09/2025) BUN 71(H) 7 - 25 mg/dL [facility] 10/09/2025 10/08/2025 2:3 4 PM MANAGER SHOP Narrative Resulting Agency Comment Performing Organization Information: Site ID: AMEE Name: [facility] Address: [address] [place] [phone] Director: Marianne Lawson MD Tabby Carmona MD LAB BLOOD ORDERABLES Final Re sult Performing Organization Address [facility] Co de Phone Number [facility] [address] [place] [phone] * (ABNORMAL) Protein, total (10/09/2025) Total Protein 6.0(L) 6.1 - 8.1 g/dL [facility] 10/09/2025 10/08/2025 2:3 4 PM MANAGER SHOP Narrative Resulting Agency Comment Performing Organization Information: Site ID: AMEE Name: [facility] Address: [address] [place] [phone] Director: Marianne Lawson MD us Tabby Carmona MD LAB BLOOD ORDERABLES Final Re sult Performing Organization Address City/[facility] Co de Phone Number [facility] [address] [place] [phone] * (ABNORMAL) Phosphorus (10/09/2025) Phosphorus 6.0(H) 3.0 - 4.3 mg/dL [facility] 10/09/2025 10/08/2025 2:3 4 PM MANAGER SHOP Narrative Resulting Agency Comment Performing Organization Information: Site ID: AMEE Name: [facility] Address: [address] [place] [phone] Director: Marianne Lawson MD us Tabby Carmona MD LAB BLOOD ORDERABLES Final Re sult Performing Organization Address City/[facility] Co de Phone Number [facility] [address] [place] [address] * (ABNORMAL) Alkaline phosphatase (10/09/2025) Alkaline Phosphatase 455(H) 35 - 144 U/L [facility] 10/09/2025 10/08/2025 2:3 4 PM MANAGER SHOP Narrative Resulting Agency Comment Performing Organization Information: Site ID: [email or web address] Address: [address] [place] [phone] Director: Marianne Lawson MD us Tabby Carmona MD LAB BLOOD ORDERABLES Final Re sult Performing Organization Address [facility] Co de Phone Number [facility] [address] * (ABNORMAL) PTH, Intact (10/09/2025) Only the most recent of2 resultswithin the time period is included. Parathyroid Hormone, Intact 257(H) 16 - 77 pg/mL [facility] Comment: Interpretive Guide Intact PTH Calcium ------- Normal Parathyroid Normal Normal Hypoparathyroidism Low or Low Normal Low Hyperparathyroidism Primary Normal or High High Secondary High Normal or Low Tertiary High High Non-Parathyroid Hypercalcemia Low or Low Normal High 10/09/2025 10/08/2025 2:3 4 PM MANAGER SHOP Narrative Resulting Agency Comment Performing Organization Information: Site ID: [email or web address] Address: [address] [place] [phone] Director: Marianne Lawson MD us Tabby Carmona MD LAB BLOOD ORDERABLES Final Re sult Performing Organization Address [facility] Co de Phone Number [facility] [address] [place] [phone] * (ABNORMAL) Magnesium (10/09/2025) Magnesium 2.8(H) 1.6 - 2.5 mg/dL [facility] 10/09/2025 10/08/2025 2:3 4 PM MANAGER SHOP Narrative Resulting Agency Comment Performing Organization Information: Site ID: [facility]EE [facility] Address: [address] [place] [phone] Director: Marianne Lawson MD Tabby Carmona MD LAB BLOOD ORDERABLES Final Re sult Performing Organization Address [facility] de Phone Number [facility] [address] * (ABNORMAL) Ferritin (10/09/2025) Ferritin 392(H) 24 - 380 ng/mL [facility] 10/09/2025 10/08/2025 2:3 4 PM MANAGER SHOP Narrative Resulting Agency Comment Performing Organization Information: Site ID: AMEE Name: [facility] Address: [address] [place] [phone] Director: Marianne Lawson MD Tabby Carmona MD LAB BLOOD ORDERABLES Final Re sult Performing Organization Address [facility] Co de Phone Number [facility] [address] [place] [phone] * (ABNORMAL) Calcium (10/09/2025) Calcium 8.4(L) 8.6 - 10.0 mg/dL [facility] 10/09/2025 10/08/2025 2:3 4 PM MANAGER SHOP Narrative Resulting Agency Comment Performing Organization Information: Site ID: AMEE Name: [email or web address] Address: [address] [place] [address] Director: Marianne Lawson MD Tabby Carmona MD LAB BLOOD ORDERABLES Final Re sult Performing Organization Address City/[facility]/ZIP Co de Phone Number [facility] [address] [place] [address] * Albumin (10/09/2025) Albumin 3.6 3.6 - 5.1 g/dL [facility] 10/09/2025 10/08/2025 2:3 4 PM MANAGER SHOP Narrative Resulting Agency Comment Performing Organization Information: Site ID: AMEE Name: [facility] Address: [address] [place] [address] Director: Marianne Lawson MD Tabby Carmona MD LAB BLOOD ORDERABLES Final Re sult Performing Organization Address City/[facility]/ZIP Co de Phone Number [facility] [address] [place] [address] from Last 3 Months Insurance Medicare
--- OUTSIDE RECORDS SUMMARY | 2025-10-13 16:00 | XMS_ITS | Patient Health Record ---
Author Organization [employer], [employer] Address [address] [place] [address] Care Team Providers Care Epic Kaleidoscope Analyst Name Role Phone Brandon Lopez MD Primary [...] Date Status Metoprolol Metoprolol *Reor clyde from [employer] for eRx and Interaction Alerts* 10/20/2011 Active [place] 5-325 MG Tablet 1 tablet as needed Orally q8h; Duration: 30 days dx: back pain with radiculopathy, s/p lumbar laminectomy *Reorder from [employer] for eRx and Interaction Alerts* 03/21/2020 Active Lisinopril Lisinopril *Pick strength-form from [employer] for eRX* 03/18/2012 Active Ascorbic Acid 4.7 [...] MG/ML Oral Solution [MoviPrep] *R 07/14/2018 Active [place] 5-325 MG Tablet 1 tablet as needed Orally every 12 hrs; Duration: 15 days *Reorder from [facility] for eRx and Interaction Alerts* 07/03/2020 Active [place] 5-325 MG Tablet 1 tablet as needed Orally every 8 hrs; Duration: 10 days *Reorder from [facility] for eRx and Interaction Alerts* 05/30/2020 Active [place] 5-325 MG Tablet 1 tablet as needed Orally q12 h; Duration: 14 days *Reorder from [facility] for eRx and Interaction Alerts* 08/02/2020 Active [place] 5-325 MG Tablet 1 tablet as needed Orally every 6 hrs; Duration: 30 days *Reorder from [facility] for eRx and Interaction Alerts* 02/29/2020 Active Aspirin Aspirin *Pick strength-form from [facility] for eRX* 03/18/2012 Active Gabapentin 100 MG Capsule 1 capsule Orally twice a day; Duration: 90 days 11/02/2020 Active Rivaroxaban 20 MG Oral Tablet rivaroxaban 20 MG Oral Tablet *Reorder from [facility] for eRx and Interaction Alerts* 07/14/2018 Active 24 HR Metoprolol Tartrate 25 MG Extended Release Tablet 24 HR Metoprolol Tartrate 25 MG Extended Release Tablet *Reorder from [facility] for eRx and Interaction Alerts* 07/14/2018 Active Gabapentin 300 MG Capsule 1 capsule Orally Once a day; Duration: 90 days 05/22/2020 Active Omeprazole 40 MG Enteric Coated Capsule Omeprazole 40 MG Enteric Coated Capsule *Reorder from [facility] for eRx and Interaction Alerts* 07/14/2018 Active Lisinopril 20 MG Oral Tablet Lisinopril 20 MG Oral Tablet *Reorder from [facility] for eRx and Interaction Alerts* 07/14/2018 Active Omeprazole Omeprazole *Pick strength-form from [facility] for eRX* 10/25/2011 Active [place] 5-325 MG Tablet 1 tablet as needed Orally every 6 hrs; Duration: 10 days *Reorder from [facility] for eRx and Interaction Alerts* 09/28/2020 Active [place] 5-325 MG Tablet 1 tablet as needed Orally every 6 hrs; Duration: 7 days *Reorder from [facility] for eRx and Interaction Alerts* 09/05/2020 Active Amlodipine 5 MG Oral Tablet Amlodipine 5 MG Oral Tablet [facility] Interaction [facility]* 07/14/2018 Active Gabapentin 300 MG Capsule 1 capsule Orally Once a day; Duration: 90 days 11/02/2020 Active Misc. 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) Active confirmed [id number] [...] temporarily unavailable COPD (496) Problem resolved confirmed [id number] 911- Problem Information temporarily unavailable TERENCE (300.02) [...] Lipoma, unspecified site (214.9) Problem resolved confirmed [id number] 911- Problem Information temporarily unavailable Cervical radiculopathy [...] Test Test Name Order Date Prothrombin Time 58419 02/07/2020 Basic Metabolic Panel 95571 02/07/2020 Basic Metabolic Panel 15901 02/20/2020 Blood Urea Nitrogen (BUN) 12598 11/01/19 Blood Urea Nitrogen (BUN) 65023 10/06/20 20 CBC w\ Auto Diff 98373 02/07/2020 Creatinine (B) 80168 07/24/2020 Creatinine (B) 16530 11/01/2020 Partial Thromboplastin Time 01039 2019 CBC Reflex Man Diff 34229, 48124 020 WBC Auto Diff--86994 02/20/2020 COVID 19 PCR--60926 02/13/2020 Chest PA/Lat-99894 02/13/2020 Chest PA/Lat-10570 02/07/2020 Lumbosacral Spine AP/Lat-79814 0 Lumbosacral Spine AP/Lat-60928 0 MRI Lumbar Spine w/ + w/o Cont-[id number] MRI Lumbar Spine w/ + w/o Cont-[id number] 03/2020 Insurance Providers Payer Name Payer Address Payer Phone Subscriber Number Group Number Insured Name Patient Relationship to Insured Coverage Start Date Coverage End Date [place] [address] [place] [phone] [id number] Anish Colon Self - patient is the insured for Life Secondary to Medicare [address] [place], [place] [phone] [id number] Anish Colon Self - patient is the insured [place] [address] [place], [place] [id number] [phone] [id number] Anish Colon Self - patient is the [...]
--- OUTSIDE RECORDS SUMMARY | 2025-10-13 16:00 | XMS_ITS | Continuity of Care Document ---
Author Organization [facility] Nickolas Abbott, [facility] ([facility]) Address [address] [address] Care Team Providers Care Supermarket Manager Name Role Phone MARK LOPZE Primary Care Provider [phone] Assessment No assessment recorded. Plan of Treatment [...] and Address Organization Details Recorded Time Chronic obstruct toni pulmonar y disease 00036772 Active 2021 Aimee valdes [facility] 10:30:57 Hiatal hernia 30016363 Active 2021 Aimee valdes [facility] 10:31:15 Basal cell carcinom a 9839525 Completed 202102/13/2025 basal cell carcinom a; 10/14/20 22 10:35AM by Sandra Moore LPN, Office Visit; Promoted ; acuity set as *; [facility] 10:30:52 Irritabl e bowel syndrome 36252246 Active 2021 Aimee valdes [facility] 5 10:31:22 Aortic valve stenosis 17488765 Active 2021 Aimee Bear null, [facility] 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 4 11:09:56 Lumbago with sciatica 520457824 Active 2022 Aimee Bear null, [facility] 5 10:31:55 [place] l hyperten salome 76610936 Active 2022 SANDRA MOORE null, [facility] 4 11:10:03 Hypergly cemia 87755037 Active 2022 Aimee Bear null, [facility] 5 10:31:18 Benign prostati c hyperpla jalen 095052831 Active 2023 SANDRA valdes, [facility] 4 11:10:24 Deep venous thrombos is 808556274 Completed 202302/13/202504/2018 Aimee Bear null, [facility] 5 10:31:03 Acid reflux 989584914 Active 2023 Aimee Bear null, [facility] 5 10:30:42 Edema 783336182 Active 2024 Aimee Bear null, [facility] 5 10:31:08 Stasis dermatit is 99253454 Active 2024 Aimee Bear null, [facility] 08:15:18 Myocardi al infarcti on 09230482 Active 2024 [facility] 14:10:26 Chronic congesti ve heart failure 65418257 Active 2024 [facility], [facility] 5 14:11:05 Oral lesion 66838414650 07 Active 2024 [facility] 14:14:09 Problem Notes None recorded. Procedures Surgical History Date Name Laterality Status Provider Name and Address Organization Details Recorded Time 07/18/20 25 Mohs surgery completed [facility] 07/24/2025 15:14:12 03/19/20 18 Prostatectomy completed [facility] 11/02/2023 11:14:40 operation on spinal cord completed Aimee Bear [facility] 02/13/2025 10:23:51 Appendectomy completed [facility] 11/02/2023 11:14:07 Cholecystectomy completed [facility] 11/02/2023 11:14:47 Cabg vein three completed [facility] 11/02/2023 11:15:04 Bethany fundoplication completed [facility] 11/02/2023 11:15:10 Imaging Results None recorded. Procedure Notes None recorded. Medical Equipment None Reported. Allergies Allergen ID Allergen Name Allergen Category Reaction Reaction Severity Criticality Documentation Date Start Date Code Code System Note Provider Name and Address Organization Details Recorded Time 75490 codeine medicatio n rash Not available Not available 05/16/2023 2670 RxNorm SANDRANETO MOORE null, [facility] 4 11:08:56 96120 Bactrim medicatio n Not available Not available Not available 05/22/2023 82200 9 RxNorm Vicky Paul [facility], [facility] 3 09:01:09 55237 amoxicill in medicatio n Not available Not available Not available 09/16/20252024 723 RxNorm Not Available dulce - [employer] - prod 5 10:14:26 08356 clavulani c acid Not available Not available Not available Not available 09/16/20252024 99115 RxNorm Not Available dulce - External Data [employer] - prod 5 10:14:26 88289 clopidogr el medicatio n Not available Not available Not available 09/16/20252024 85136 RxNorm Not Available dulce - External [employer] - prod 5 10:14:26 71142 sulfameth oxazole medicatio n Not available Not available Not available 09/16/20252024 27096 RxNorm Not Available dulce - [employer] - prod 5 10:14:26 03650 trimethop rim medicatio n Not available Not available Not available 09/16/20252024 01560 RxNorm Not Available dulce - [employer] - prod 5 10:14:26 61541 amoxicill in / clavulana te medicatio n rash Not available low 10/04/20252013 34579 RxNorm Not Available [facility] - [employer] - prod 5 11:33:34 39397 atorvasta tin medicatio n Not available Not available Not available 10/04/20252013 00871 RxNorm Weakn ess in legs Not Available [facility]ul[facility] - [employer] - prod 5 11:33:34 41007 amlodipin e medicatio n Not available Not available Not available 10/04/2025 03925 RxNorm Not Available [facility] - [employer] - prod 5 11:33:57 32519 sulfameth oxazole / trimethop rim medicatio n Not available Not available Not available 10/04/2025 90273 RxNorm Not Available [facility] External Data Service - prod 5 11:34:04 843 Product containin g 3-hydroxy -3-methyl glutaryl- coenzyme A reductase inhibitor (product) medicatio n myalgias (muscle pain) Not available Not available 01/19/2023 16757 009 SNOMED Aimee valdes, [facility] 3 09:12:17 844 Plavix medicatio n rash Not available Not available 01/19/2023 51415 2 [facility] 09:12:33 845 Augmentin medicatio n rash Not available Not available 01/19/2023 60204 2 RxNorm Aimee valdes, [facility] 3 09:12:46 846 oxycodone medicatio n rash Not available Not available 01/19/2023 7804 RxNorm Aimee valdes, [facility] 3 09:13:04 Medications Name Sig Start Date Stop Date Status Note LastModified by Organization Details LastModified Time Prescript ion - Renewal active Not Available Not Available Not Available furosemid e 40 mg tablet Take 1 [...] TABLET BY MOUTH EVERY 8 HOURS NEEDED max of THREE PER day active Not Available Not Available No t [...] and Address Organization Details Last Updated DateTime 166.37 cm 33.1 kg/m2 05153.6 6 g 97.6 [degF] 86 /min 93 % 142/82 mm[Hg] Aimee Bear [facility] 11:46:17 Social History Question Answer Notes LastModified by [facility] [employer] Details LastModified Time Tobacco Smoking Status Current Some Day Smoker cigars Aimee Bear [facility] 08/03/2025 11:43:22 When Did [...] Functional Status Question Answer Note LastModified by [employer] Details LastModified Time How many times per week do you consume alcohol? 5-7 times per week 7 days per week Information not available 08/03/2025 Do you use any illicit or recreational drugs? No [email or web address] Information not available 11/02/2023 Do you or have you ever used any other forms of tobacco or nicotine? No [email or web address] Information not available 11/02/2023 What is your level of alcohol consumption? Moderate Information not available 08/03/2025 Mental Status None recorded. Family History Relationship Description Onset Age of this Age Resolved Age Notes LastModified by Organization Details LastModified Time Brother Deep venous thrombosis [email or web address] Not available 10/19 11:12:23 Sister Deep venous thrombosis [email or web address] Not available 10/19 11:12:23 Sister Leukemia Not availab le 11/02/2023 11:12:56 Father Coronary atherosclero sis Not available 11/02 11:12:38 Paternal Grandfather Coronary atherosclero sis [email or web address] Not available 11/02 11:12:38 Mother Malignant melanoma [email or web address] Not available 11/02 11:12:49 Medical History No medical history recorded. Immunizations Vaccine Type Date Status Note Provider Nam e and Address Organization Details Recorded Time zoster recombinant 1 completed SANDRA valdes, [facility] 11/02/2023 11:08:32 Influenza, split virus, trivalent, preservative 1 completed SANDRA valdes, [facility] 11/02/2023 11:08:32 Pneumococcal conjugate PCV 13 6 completed SANDRA valdes, [facility] 11/02/2023 11:08:32 pneumococcal polysaccharide PPV23 1 completed SANDRA valdes, [facility] 11/02/2023 11:08:32 zoster recombinant 1 completed SANDRA valdes, [facility] 11/02/2023 11:08:32 Influenza, high-dose, quadrivalent, PF 1 completed SANDRA valdes, [facility] 11/02/2023 11:08:32 Influenza, high-dose, quadrivalent, PF 2 completed SANDRA valdes, [facility] 11/02/2023 11:08:32 COVID-19, mRNA, LNP-S, PF, 100 mcg/0.5mL dose or 50 mcg/0.25mL dose 1 completed SANDRA valdes, [facility] 11/02/2023 11:08:32 COVID-19, mRNA, LNP-S, PF, 100 mcg/0.5mL dose or 50 mcg/0.25mL dose 1 completed SANDRA MOORE null, [facility] 11/02/2023 11:08:32 COVID-19, mRNA, LNP-S, PF, 100 mcg/0.5mL dose or 50 mcg/0.25mL dose 2 completed SANDRA MOORE null, [facility] 11/02/2023 11:08:32 COVID-19, mRNA, LNP-S, PF, 100 mcg/0.5mL dose or 50 mcg/0.25mL dose 1 completed SANDRA MOORE null, [facility] 11/02/2023 11:08:32 COVID-19, mRNA, LNP-S, bivalent, PF, 50 mcg/0.5 mL or 25mcg/0.25 mL dose 2 completed SANDRA MOORE null, [facility] 11/02/2023 11:08:32 Tdap 9 completed SANDRA MOORE null, [facility] 11/02/2023 11:08:32 Influenza, high-dose, trivalent, PF 9 completed SANDRA MOORE null, [facility] 11/02/2023 11:08:32 Influenza, high-dose, trivalent, PF 8 completed SANDRA MOORE null, [facility] 11/02/2023 11:08:32 Influenza, high-dose, quadrivalent, PF 3 completed SANDRA MOORE null, [facility] 03/11/2024 10:45:56 COVID-19, mRNA, LNP-S, PF, 50 mcg/0.5 mL 3 completed SANDRA valdes, [facility] 03/11/2024 10:45:56 Influenza, high-dose, trivalent, PF 4 completed Not Available [facility] 10/09/2025 12:38:01 COVID-19, mRNA, LNP-S, PF, 50 mcg/0.5 mL 4 completed Not Available [facility] 10/09/2025 12:38:01 Influenza, adjuvanted, trivalent, PF 5 completed Not Available [facility] 10/09/2025 12:38:01 Past Encounters Encounter ID Performer Location Encounter Start Date Encounter Closed Date Diagnosis/Indication Diagnosis SNOMED-CT Code Diagnosis ICD10 Code Diagnosis IMO Codes Diagnosis Note [id number] Mark Lopez MD [facility] ([facility]) [address] [place] [phone] 08/03/2025 11:34:48 08/07/2025 14:08:19 Subcutaneous hematoma 1983706 T14.8XXA [id number] reassuranc e given. no pulsation it is not expanding. use warm compresses . Health Concerns Section Related Observation LastModified by Organization Detai ls LastModified Time None Recorded Concern Status LastModified by Organization Details LastModified Time None Recorded Payers Encounter Date Sequence Insurance Name Policy Number Policy [place] Covered Member ID [place] Member ID Guarantor Name 08/03/2025 1 [place]ICARE [place]: [place] Anish Miller Darlene [id number] Anish Colon 08/03/2025 2 FOR LIFE () Anish Miller Darlene [id number] Anish Angela Darlene Notes Date Note Type Note Provider Name [...] to have it evaluated. Mark Lopez MD [address] [place] [address], [id number], [facility] 08/03/2025 11:54:32
--- OUTSIDE RECORDS SUMMARY | 2025-10-13 16:00 | XMS_ITS | Data Portability ---
Author Organization [facility] Address [address] [place] [id number] Care Team Providers Care Lathe Operator Contact Lens Name Role Phone MARK LOPEZ Primary Care Provider Assessment Encounter Date Assessment Date Assessment LastModified by Organization Details LastModified Time 02/13/2025 02/13/2025 daily moisturization he needs to wear his compression socks. he has them Not available 02/13/2025 10:53:41 05/31/2025 05/31/2025 he reports bp is 130-135/70's on avg. [email or web address] Not available 05/31/2025 11:24:00 Plan of Treatment Reminders Order Date Submit Date Provider Last Modified By Organization Details Last Modified Time Details Appointments None recorded. Lab hemoglobin A1C/hemoglo bin total, QN, blood 2024 025 CECILIA [facility], [address], [place], [address], 09:26:07 CBC 2024 025 CECILIA [facility], [address] [facility] [address], [place], [address], 13:35:04 CMP, serum or plasma 2024 025 [facility], [address] [facility] [address], [place], [address], 08/06/202 5 10:14:46 Referral None recorded. Procedures None recorded. Surgeries None recorded. Imaging US, echocardiog pascale, transthorac ic, complete, w/ color flow 2024 025 [email or web address] 2 [facility] (Scheduling Orders), [address], [place], [address], 08:29:18 Medication Orders triamcinolo ne acetonide 0.1 % topical cream 2024 025 [facility], [address] [place] [address], [address], 11:42:05 Patient TargetsNo targets recorded. Patient InstructionsNo instructions recorded. Reason for Referral None Reported. Results Created Date Observation Date Name Description Value Unit Range Abnormal Flag Note LastModifiedBy Organization Detail LastModifiedTime 05/24/2005/24/2025 HBA1C hemaglobin A1C 6.1 4.2-6. 5 Not Available [facility] [address] [facility] [address], [place], [address], 05/24/2025 09:26:07 05/24/2005/24/2025 CMP (MALE ) glucose 115.0 mg/dL 60.0-9 9.0 high Not Available [facility] [address] [facility] [address], [place], [address], 05/24/2025 10:14:45 05/24/2005/24/2025 CMP (MALE ) BUN (blood urea nitrogen) 14.0 mg/dL 10.0-2 6.0 Not Available [facility] [address] [facility] [address], [place], [address], 05/24/2025 10:14:45 05/24/20 25 05/24/2025 CMP (MALE ) creatinine (serum) 0.8 mg/dL 0.4-1. 5 Not Available [facility] [address] [facility] [address], [place], [address], 05/24/2025 10:14:45 05/24/20 25 05/24/2025 CMP (MALE ) BUN/creatini ne ratio 17.50 ratio Not Available [facility] [address] [facility], [place], [address], 05/24/2025 10:14:45 05/24/20 25 05/24/2025 CMP (MALE ) eGFR calculated 97.7 Not Available [facility] [address] [place] [facility], [place], [address], 05/24/2025 10:14:45 05/24/20 25 05/24/2025 CMP (MALE ) total protein 7.3 g/dL 6.0-8. 5 Not Available [facility] [address] [facility] [address], [place], [address], 05/24/2025 10:14:45 05/24/20 25 05/24/2025 CMP (MALE ) total bilirubin 1.1 mg/dL 0.2-1. 3 Not Available [facility] [address] [facility] [address], [place], [address], 05/24/2025 10:14:45 05/24/20 25 05/24/2025 CMP (MALE ) albumin 4.3 g/dL 3.5-5. 5 Not Available [facility] [address] [facility] 1, [place], [address], 05/24/2025 10:14:45 05/24/20 25 05/24/2025 CMP (MALE ) globulin 3.0 calc Not Available [facility] [address] [facility], [place], [address], 05/24/2025 10:14:45 05/24/20 25 05/24/2025 CMP (MALE ) AST (SGOT) 28.0 U/L 0.0-46 .0 Not Available [facility] [address] [facility] 1, [place], [address], 05/24/2025 10:14:45 05/24/20 25 05/24/2025 CMP (MALE ) altv (SGPT) 20.0 U/L 13.0-6 9.0 normal Not Available [facility] [address] [facility] 1, [place], [address], 05/24/2025 10:14:45 05/24/20 25 05/24/2025 CMP (MALE ) A/G ratio 1.4 ratio Not Available [facility] [address] [place] [facility], [place], [address], 05/24/2025 10:14:45 05/24/20 25 05/24/2025 CMP (MALE ) ALP phos 80.0 U/L 30.0-1 40.0 normal Not Available [facility] [address] [facility] 1, [place], [address], 05/24/2025 10:14:45 05/24/20 25 05/24/2025 CMP (MALE ) calcium 9.6 mg/dL 8.4-10 .5 Not Available [facility] [address] [place] [facility], [place], [address], 05/24/2025 10:14:45 05/24/20 25 05/24/2025 CMP (MALE ) sodium 141.0 mmol/ L 136.0- 145.0 Not Available [facility] [address] [place] Yana [facility] 1, [place], [address], 05/24/2025 10:14:45 05/24/20 25 05/24/2025 CMP (MALE ) potassium 4.1 mmol/ L 3.5-5. 1 Not Available [facility] [address] [facility] Yana [facility] 1, [place], [address], 05/24/2025 10:14:45 05/24/20 25 05/24/2025 CMP (MALE ) chloride 107.0 mmol/ L 98.0-1 10.0 normal Not Available [facility] [address] [facility] 1, [place], [address], 05/24/2025 10:14:45 05/24/20 25 05/24/2025 CMP (MALE ) C02 25.0 mmol/ L 22.0-3 1.0 Not Available [facility] [address] [facility] 1, [place], [address], 05/24/2025 10:14:45 05/24/20 25 05/24/2025 CMP (MALE ) anion gap 9.0 calc Not Available [facility] [address] [facility] 1, [place], [address], 05/24/2025 10:14:45 05/24/20 25 05/24/2025 CMP (MALE ) osmolality 292.4 calc Not Available [facility] [address] [facility] 1, [place], [address], 05/24/2025 10:14:45 05/24/20 25 05/24/2025 CBC WBC 5.9 x10 4.5-10 .5 Not Available [facility] [address] [facility] 1, [place], [address], 05/25/2025 13:35:04 05/24/20 25 05/24/2025 CBC RBC 4.70 x10 4.30-5 .90 Not Available [facility] [address] [facility] 1, [place], [address], 05/25/2025 13:35:04 05/24/20 25 05/24/2025 CBC HGB 14.8 g/dL 13.5-1 8.0 Not Available [facility] [address] [facility] 1, [place], [address], 05/25/2025 13:35:04 05/24/20 25 05/24/2025 CBC HCT 46.3 % 35.0-6 0.0 Not Available [facility] [address] [facility] 1, [place], [address], 05/25/2025 13:35:04 05/24/20 25 05/24/2025 CBC MCV 98.0 fL 80.0-9 9.9 Not Available [facility] [address] [facility] 1, [place], [address], 05/25/2025 13:35:04 05/24/20 25 05/24/2025 CBC MCH 31.3 pg 27.0-3 2.0 Not Available [facility] [address] [facility] 1, [place], [address], 05/25/2025 13:35:04 05/24/20 25 05/24/2025 CBC MCHC 32.0 g/dL 32.0-3 6.0 Not Available [facility] [address] [facility] 1, [place], [address], 05/25/2025 13:35:04 05/24/20 25 05/24/2025 CBC RDW 13.1 % 11.5-1 4.5 Not Available [facility] [address] [facility] 1, [place], [address], 05/25/2025 13:35:04 05/24/20 25 05/24/2025 CBC plt 273.0 x10 150.0- 451.0 Not Available [facility] [address] [facility] 1, [place], [address], 05/25/2025 13:35:04 05/24/20 25 05/24/2025 CBC lymphocytes % 31.9 % 20.0-5 0.0 Not Available [facility] [address] [facility] 1, [place], [address], 05/25/2025 13:35:04 05/24/20 25 05/24/2025 CBC granulcytes % 49.8 % 30.0-7 0.0 Not Available [facility] [address] [facility] 1, [place], [address], 05/25/2025 13:35:04 05/24/20 25 05/24/2025 CBC monocytes % 13.6 % 2.0-16 .0 Not Available [facility] [address] [address], [place], [address], 05/25/2025 13:35:04 05/24/20 25 05/24/2025 CBC granulcytes# 2.9 x10 Not Gabriela ilable [facility] [address] [address], [place], [address], 05/25/2025 13:35:04 05/24/20 25 05/24/2025 CBC lymphocytes # 1.9 x10 Not Available [facility] [address] [address], [place], [address], 05/25/2025 13:35:04 05/24/20 25 05/24/2025 CBC monocytes # 0.8 x10 Not Avai lable [facility] [address] [address], [place], [address], 05/25/2025 13:35:04 Result Notes None recorded. Problems Name Problem SNOMED Code Status Onset Date Resolution Date Notes Provider Name and Address Organization Details Recorded Time Chronic obstruct toni pulmonar y disease 53507885 Active 2021 BENJAMIN Og - [facility] 10:30:57 Hiatal hernia 34427184 Active 2021 Aimee valdes, [employer] 5 10:31:15 Basal cell carcinom a 5551854 Completed 202102/13/2025 basal cell carcinom a; 10/14/20 22 10:35AM by Sandra Moore LPN, Office Visit; Promoted ; acuity set as *; Aimee valdes, [facility] 5 10:30:52 Irritabl e bowel syndrome 47733353 Active 2021 Aimee valdes, [facility] 5 10:31:22 Aortic valve stenosis 99119167 Active 2021 Aimee valdes, [facility] 5 10:30:47 Campbell' s esophagu s with esophagi tis 011670772 Active 2022 SANDRA valdes, [facility] 4 11:09:56 Lumbago with sciatica 228040766 Active 2022 Aimee valdes, [facility] 5 10:31:55 Essentia l hyperten salome 34208815 Active 2022 SANDRA valdes, [facility] 4 11:10:03 Hypergly cemia 73747502 Active 2022 Aimee valdes, [facility] 5 10:31:18 Benign prostati c hyperpla jalen 213051317 Active 2023 SANDRA valdes, [facility] 4 11:10:24 Deep venous thrombos is 252873774 Completed 202302/13/202504/2018 Aimee Marianela [facility] 5 10:31:03 Acid reflux 857132203 Active 2023 Aimee Linobloch [facility] 5 10:30:42 Edema 838257921 Active 2024 Aimee Marianela [facility] 5 10:31:08 Stasis dermatit is 64601323 Active 2024 Aimee Bear [facility] 5 08:15:18 Myocardi al infarcti on 72338211 Active 2024 TAMIKO HORTON [facility] [employer] 14:10:26 Chronic congesti ve heart failure 49029993 Active 2024 TAMIKO HORTON [facility] 14:11:05 Oral lesion 69566509784 07 Active 2024 TAMIKO HORTON [facility] 14:14:09 Problem Notes None recorded. Procedures Surgical History Date Name Laterality Status Provider Name and Address Organization Details Recorded Time 07/18/20 25 Mohs surgery completed SANDRA MOORE [facility] 07/24/2025 15:14:12 03/19/20 18 Prostatectomy completed SANDRA MOORE [facility] 11/02/2023 11:14:40 operation on spinal cord completed Aimee Bear [employer] 02/13/2025 10:23:51 Appendectomy completed SANDRA MOORE [employer] 11/02/2023 11:14:07 Cholecystectomy completed SANDRA [facility] 11/02/2023 11:14:47 Cabg vein three completed SANDRA MOORE [facility] 11/02/2023 11:15:04 Bethany fundoplication completed SANDRA TERESA [facility] 11/02/2023 11:15:10 Imaging Results None recorded. Procedure Notes None recorded. Medical Equipment None Reported. Allergies Allergen ID Allergen Name Allergen Category Reaction Reaction Severity Criticality Documentation Date Start Date Code Code System Note Provider Name and Address Organization Details Recorded Time 56764 codeine medicatio n rash Not available Not available 05/16/2023 2670 RxNorm SANDRA TERESA valdes [employer] 4 11:08:56 51769 Bactrim medicatio n Not available Not available Not available 05/22/2023 98893 9 RxNorm Vicky valdes [employer] 3 09:01:09 92459 amoxicill in medicatio n Not available Not available Not available 09/16/20252024 723 RxNorm Not Available [employer]ucle - External [employer] - prod 5 10:14:26 88169 clavulani c acid Not available Not available Not available Not available 09/16/20252024 38921 RxNorm Not Available dulce - External Data Service - prod 5 10:14:26 18822 clopidogr el medicatio n Not available Not available Not available 09/16/20252024 17037 RxNorm Not Available dulce - External Data [employer] - prod 5 10:14:26 07624 sulfameth oxazole medicatio n Not available Not available Not available 09/16/20252024 93461 RxNorm Not Available [employer] - prod 5 10:14:26 88262 trimethop rim medicatio n Not available Not available Not available 09/16/2025 11/13/ 2025 64348 RxNorm Not Available [employer] - prod 5 10:14:26 72749 amoxicill in / clavulana te medicatio n rash Not available [facility] 10/04/20252013 60995 RxNorm Not Available dulce [employer] External Data Service - prod 5 11:33:34 80435 atorvasta tin medicatio n Not available Not available Not available 10/04/20252013 98786 RxNorm Weakn ess in legs Not Available dulce [employer] External [employer] - prod 5 11:33:34 78795 amlodipin e medicatio n Not available Not available Not available 10/04/2025 76124 RxNorm Not Available dulce [employer] - prod 5 11:33:57 52588 sulfameth oxazole / trimethop rim medicatio n Not available Not available Not available 10/04/2025 56414 RxNorm Not Available depew [employer] - prod 5 11:34:04 843 Product containin g 3-hydroxy -3-methyl glutaryl- coenzyme A reductase inhibitor (product) medicatio n myalgias (muscle pain) Not available Not available 01/19/2023 38526 009 SNOMED Aimee valdes [facility] 3 09:12:17 844 Plavix medicatio n rash Not available Not available 01/19/2023 51554 2 RxNorm Aimeedick valdes, [facility] 3 09:12:33 845 Augmentin medicatio n rash Not available Not available 01/19/2023 68113 2 RxNorm Aimee Marianela valdes [facility] 3 09:12:46 846 oxycodone medicatio n rash Not available Not available 01/19/2023 7804 RxNorm Aimee valdes [employer] 3 09:13:04 Medications Name Sig Start Date [...] 22 9:31AM by Sandra Moore LPN (Authori edilia through Mark Lopez MD), Annotati on/Adden [...] Updated DateTime 5 166.37 cm 33.3 kg/m2 04986.2 5 g 97.9 [degF] 65 /min 97 % 140/74 mm[Hg] [facility] 5 10:25:38 Date Recorded Body height Body mass index (BMI) Body weight Oxygen saturation Heart rate Respiratory rate Body temperature Systolic And Diastolic Provider Name and Address Organization Details Last Updated DateTime 5 166.37 cm 32.8 kg/m2 54151.4 7 g 94 % 59 /min 18 /min 97.6 [degF] 158/76 mm[Hg] Torrie Xiao [facility] 5 11:04:45 Date Recorded Body height Body mass index (BMI) Body weight Body temperature Heart rate Oxygen saturation Systolic And Diastolic Provider Name and Address Organization Details Last Updated DateTime 5 166.37 cm 33.1 kg/m2 01739.6 6 g 97.6 [degF] 86 /min 93 % 142/82 mm[Hg] Aimee Bear [facility] 11:46:17 Date Recorded Body height Body mass index (BMI) Body weight Oxygen saturation Inhaled oxygen flow rate Heart rate Respiratory rate Body temperature Systolic And Diastolic Provider Name and Address Organization Details Last Updated DateTime 5 166.37 cm 32.3 kg/m2 84968.7 g 91 % 2 L/min 69 /min 20 /min 97.5 [degF] 112/60 mm[Hg] TAMIKO HORTON [facility] 14:05:57 Social History Question Answer Notes LastModified by [employer] Details LastModified Time Tobacco Smoking Status Current Some Day Smoker cigars Aimee valdes [facility] 08/03/2025 11:43:22 When Did You Quit [...] Functional Status Question Answer Note LastModified by [employer] Details LastModified Time How many times per week do you consume alcohol? 5-7 times per week 7 days per week Information not available 08/03/2025 Do you use any illicit or recreational drugs? No [email or web address] Information not available 11/02/2023 Do you or have you ever used any other forms of tobacco or nicotine? No [email or web address] Information not available 11/02/2023 What is your level of alcohol consumption? Moderate Information not available 08/03/2025 Mental Status None recorded. Family History Relationship Description Onset Age of this Age Resolved Age Notes LastModified by Organization Details LastModified Time Brother Deep venous thrombosis [email or web address] Not available 10/19 11:12:23 Sister Deep venous thrombosis [email or web address] Not available 10/19 11:12:23 Sister Leukemia [email or web address] Not availab le 11/02/2023 11:12:56 Father Coronary atherosclero sis [email or web address] Not available 11/02 11:12:38 Paternal Grandfather Coronary atherosclero sis [email or web address] Not available 11/02 11:12:38 Mother Malignant melanoma [email or web address] Not available 11/02 11:12:49 Medical History No medical history recorded. Immunizations Vaccine Type Date Status Note Provider Nam e and Address Organization Details Recorded Time zoster recombinant 1 completed SANDRA valdes, [facility] 11/02/2023 11:08:32 Influenza, split virus, trivalent, preservative 1 completed SANDRA valdes, [facility] 11/02/2023 11:08:32 Pneumococcal conjugate PCV 13 6 completed SANDRA valdes, [facility] 11/02/2023 11:08:32 pneumococcal polysaccharide PPV23 1 completed SANDRA valdes, [facility] 11/02/2023 11:08:32 zoster recombinant 1 completed SANDRA valdes, [facility] 11/02/2023 11:08:32 Influenza, high-dose, quadrivalent, PF 1 completed SANDRA valdes, [facility] 11/02/2023 11:08:32 Influenza, high-dose, quadrivalent, PF 2 completed SANDRA valdes, [facility] 11/02/2023 11:08:32 COVID-19, mRNA, LNP-S, PF, 100 mcg/0.5mL dose or 50 mcg/0.25mL dose 1 completed SANDRA valdes, [facility] 11/02/2023 11:08:32 COVID-19, mRNA, LNP-S, PF, 100 mcg/0.5mL dose or 50 mcg/0.25mL dose 1 completed SANDRA MOORE null, [facility] 11/02/2023 11:08:32 COVID-19, mRNA, LNP-S, PF, 100 mcg/0.5mL dose or 50 mcg/0.25mL dose 2 completed SANDRA MOORE null, [facility] 11/02/2023 11:08:32 COVID-19, mRNA, LNP-S, PF, 100 mcg/0.5mL dose or 50 mcg/0.25mL dose 1 completed SANDRA MOORE null, [facility] 11/02/2023 11:08:32 COVID-19, mRNA, LNP-S, bivalent, PF, 50 mcg/0.5 mL or 25mcg/0.25 mL dose 2 completed SANDRA MOORE null, [facility] 11/02/2023 11:08:32 Tdap 9 completed SANDRA MOORE null, [facility] 11/02/2023 11:08:32 Influenza, high-dose, trivalent, PF 9 completed SANDRA MOORE null, [facility] 11/02/2023 11:08:32 Influenza, high-dose, trivalent, PF 8 completed SANDRA MOORE null, [facility] 11/02/2023 11:08:32 Influenza, high-dose, quadrivalent, PF 3 completed SANDRA MOORE null, [facility] 03/11/2024 10:45:56 COVID-19, mRNA, LNP-S, PF, 50 mcg/0.5 mL 3 completed SANDRA MOORE null, [facility] 03/11/2024 10:45:56 Influenza, high-dose, trivalent, PF 4 completed Not Available [facility] 10/09/2025 12:38:01 COVID-19, mRNA, LNP-S, PF, 50 mcg/0.5 mL 4 completed Not Available [facility] 10/09/2025 12:38:01 Influenza, adjuvanted, trivalent, PF 5 completed Not Available [facility] 10/09/2025 12:38:01 Past Encounters Encounter ID Performer Location Encounter Start Date Encounter Closed Date Diagnosis/Indication Diagnosis SNOMED-CT Code Diagnosis ICD10 Code Diagnosis IMO Codes Diagnosis Note [id number] Mark Lopez MD [facility] ([facility]) [address] [place] [phone] 01/19/2023 09:21:25 01/20/2023 18:28:25 Adult health examination 320811435 Z00.01 ldl reduced 20 points with dietary [id number] stable at 6.3 Essential hypertension 69021556 I10 home bps at goalpulse at goal he will have an echo and see cardiology by march. 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 8879906372 2068724 I25.119 Chronic ob structive pulmonary disease 89774672 J44.9 Campbell's esophagus with esophagitis 616784362 K22.70 Lumbago with sciatica 20 7393085 M54.41 s/p dorsal rhizotomy has pain mgt followup in february Hyperglycemia 99869459 R 73.9 continue dietary controladv erse reactions with metformin nair snot desire medication tx Tinea cruris 744092117 B 35.6 [id number] Mark Lopez MD [facility] ([facility]) [address] [place] [id number] 02/25/2023 10:38:47 02/25/2023 13:15:36 Effusion of joint of left knee 3972967062 18084 M25.462 will do xraysdiscu ssed possible aspiration /injection rice therapy he is monitoring his bp at home and it is much better than here today.he has no pedal edema however his a.m. pressures have gone up b/c he reduced his medication when he takes amlodipine and lisinopril bid his pressure is down around 100amlodip ine once daily lisinopril bidhe will call with progress [id number] Mark Lopez MD [facility] ([facility]) [address] [place] [address] [phone] 04/13/2023 09:15:05 04/13/2023 19:20:23 Effusion of joint of left knee 6144472737 56465 M25.462 will do xraysdiscu ssed possible aspiration [...] will begin stretching and deep tissue massage. [id number] BELEN PARKER [facility] ([facility]) [address] [place] [id number] 5 05/22/2023 08:37:52 05/22/2023 13:38:51 Sore throat 970080283 J02.9 COVID-19 943427174 U07.1 Discussed risks and benefits of Paxlovid. Patient verbalized that he understand s this medication is still under emergency use authorizat ion. Will start Paxlovid today. Ran a drug interactio n check on patients daily medication s. Discussed with doctor detonator maker patients amlodipine and Paxlovid possible interactio n. [...] medication s PRN. Patient verbalizes understand ing. [id number] Mark Lopez MD [facility] ([facility]) [address] [place] [phone] 11/02/2023 11:06:30 11/02/2023 12:14:07 Essential hypertension 22698047 I10 home bps at goalpulse at goal he will have an echo and see cardiology by march. Coronary arteriosclerosis 61261356 I25.880 [id number] Mark Lopez MD [facility] ([facility]) [address] [place] [phone] 02/01/2024 09:24:38 02/01/2024 11:10:35 Chronic obstructive pulmonary disease 92125337 J44.9 Edema of l ower extremity 439671534 R60.0 his compressio n socks really helped when he wore them. [id number] Mark Lopez MD [facility] ([facility]) [address] [place] [id number] 03/11/2024 10:35:27 03/11/2024 12:10:50 Tear of skin 640432782 T14.8XXA [id number] Mark Lopez MD [facility] ([facility]) [address] [place] [phone] 11/30/2024 11:06:06 12/01/2024 10:38:07 Essential hypertension 16014204 I10 home bps at goalpulse at goal he will have an echo and see cardiology by march. Lumbago with sciatica 20 3681442 M54.41 s/p dorsal rhizotomy has pain mgt followup in february Bilateral lower leg edema 382653291 R60.0 amlodipine is about the only thing he perceives to tolerate for bp so even if it is causing some of his edema, i don't think we can realistica lly change it. Pain of ri ght knee joint 8923024700 47071 M25.561 debo's posno redness or warmthttp right lat joint line suspect meniscal injury. he will use ice and see ortho in 2 dayscompre ssion if tolerable Moderate a ortic valve stenosis 698580779 I35.0 Hyperglycemia 27943812 R 73.9 continue dietary controladv erse reactions with metformin nair snot desire medication tx [id number] Mark Lopez MD [facility] ([facility]) [address] [place] [address] [place] [phone] 02/13/2025 10:13:40 02/13/2025 13:02:04 Stasis dermatitis [id number] I87.2 [id number] he uses his furosemide only intermitte ntly, unfortunat rosie. he is supposed from his heart to take it daily. i tried to move his compliance fwd. i addressed all his perceived barriers to care. he cancelled all cardiac testing. i convineed him to start with the echo. Aortic valve stenosis 60 [id number] I35.0 [id number] Mark Lopez MD [facility] ([facility]) [address] [place] [phone] 05/24/2025 08:04:21 05/26/2025 12:55:32 Hyperglycemia [id number] R73.9 continue dietary controladv erse reactions with metformin nair snot desire medication tx Essential hypertension [id number] I10 home bps at goalpulse at goal he will have an echo and see cardiology by march. [id number] Mark Lopez MD [facility] ([facility]) [address] [place] [phone] 05/31/2025 10:40:45 05/31/2025 14:46:35 Essential hypertension [id number] I10 home bps remain at goalpulse at goal Aortic valve stenosis 60 214775 I35.0 Stasis dermatitis 100774 05 I87.2 [id number] he still uses his furosemide only intermitte ntly, unfortunat rosie. he is supposed from his heart to take it daily. i tried to move his compliance fwd. once again and once again i addressed all his perceived barriers to care. he cancelled all cardiac testing. i convinced him to start with the echo. [id number] Mark Lopez MD [facility] ([facility]) [address] [place] [phone] 08/03/2025 11:34:48 08/07/2025 14:08:19 Subcutaneous hematoma [id number] T14.8XXA [id number] reassuranc e given. no pulsation it is not expanding. use warm compresses . Health Concerns Section Related Observation LastModified by Organization Detai ls LastModified Time None Recorded Concern Status LastModified by Organization Details LastModified Time None Recorded Advance Directives Directive None Recorded Payers Insurance Date Sequence Insurance Name Policy Number Policy [place] Covered Member ID [place] Member ID Guarantor Name 10/02/2025 1 MEDICARE [place]: WPS Anish Colon [id number] Anish Colon 11/30/2024 2 AFSA - ( SUPPLEMENT) Anish Colon [id number] Anish Colon 10/02/2025 [place] - [place] A - RHC-[id number] (MEDICARE) Anish Colon [id number] Anish Colon 10/09/2025 2 FOR LIFE () Anish Colon [id number] Anish Colon Notes Date Note Type Note Provider Name and Address Organization Details Recorded Time 02/13/2025 text/html Pt has been having redness in BLE for almost 3 months. Pt would like to have this examined. He is still having back pain as well. He reports a redness in his legs. He would like to discuss if this could be related to his latest rhizotomy. I assured him it was not. Mark Lopez MD [address] [place] [address], [phone], [facility] 02/13/2025 10:55:49 05/31/2025 text/html [...] his he very thankful. Mark Lopez MD [address] [place] [address], [phone], [facility] 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 She had to go in twice to remove all of the cells. Pt states the second time she nicked an artery. He now has a lump on his forehead where the spot was removed. He would like to have it evaluated. Mark Lopez MD [address] [place] [address], [phone], [facility], [place] 08/03/2025 11:54:32 10/09/2025 text/html Care Management - Congestive Heart Failure (CHF)Reported by PatientHPIFor self care, patient reportsblood pressure goal: 120/70. new admit Not Available Not Available Not Available
[2025-10-13 16:19] LABS: ABG PCO2 39.2 mmHg (35-45); ABG PH Result 7.40 (7.35-7.45); Alveolar-Arterial Oxygen Gradi 17.0 mmHg (5-10); Arterial Blood Gas Hematocrit 34.8 % (42-52); Blood Gas Allen Test Pos; Blood Gas LPM 4.0 %; Blood Gas Operator Identificat MONRO; Blood Gas Sample Site Radial, left; Blood Gas Sample Type Arterial; Carboxyhemoglobin 2.2 %THgb (0.4-20.1); Glucose Level-ABG 141.0 mg/dL (70-115); HCO3 ABG 24.2 mmol/L (22-26); Ionized Calcium Level - ABG 1.1 mmol/L (1.1-1.4); Methemoglobin 0.6 % (0.4-1.5); Oxygen Saturation ABG 94.7; PO2 ABG 75.2 mmHg (80.0-100.0); PO2 FiO2 Ratio Arterial Blood 208; Potassium Level - ABG 4.4 mmol/L (3.5-5.0); Sodium Level - ABG 132.0 mmol/L (131-143)
--- NOTE | 2025-10-13 16:21 | ED_ITS ---
HPI - SOB/Dyspnea 2 General: Chief Complaint: Shortness of Breath/Dyspnea Stated Complaint: CHEST PAIN Source: patient and EMS Mode of arrival: EMS Limitations: no limitations History of Present Illness: HPI Narrative: 85-year-old male is here from nursing [facility] with shortness of breath patient had a history of a heart attack earlier this month while he was here he had to be placed on dialysis for renal failure. Patient refused to [facility] had increasing shortness of breath they are requiring oxygen. He had some slight confusion as well. Denies any pain. Related Data Home Medications ?Medication ?Instructions ?Recorded ?Confirmed nitroglycerin 0.4 mg sublingual 0.4 mg sublingual Q5M PRN Chest 11/21/19 09/16/25 tablet (Nitrostat) Pain omeprazole 20 mg capsule,delayed 20 mg PO BID PRN Acid Reflux 01/16/20 09/16/25 release hydrocodone 7.5 mg-acetaminophen 1 tab PO Q8H PRN Pain 04/20/23 09/16/25 325 mg tablet furosemide 40 mg tablet 40 mg PO DAILY 12/29/2408/20 ketoconazole 2 % shampoo See Rx Instructions .Route . COMPLEX 09/16/25 09/16/25 lisinopril 20 mg tablet 20 mg PO BID 09/16/25 Previous Rx's ?Medication ?Instructions ?Recorded amlodipine 5 mg tablet 10 mg (2 x 5 mg) PO DAILY #1 4 tabs 01/07/22 Allergies Allergy/AdvReac Type Severity Reaction Status Date / Time amoxicillin (From Augmentin) Allergy ALGY-Rash Verified 08/31/25 10:19 clavulanic acid (From Allergy ALGY-Rash Verified 08/31/25 10:19 Augmentin) clopidogrel (From Plavix) Allergy ALGY-Joint Verified 08/31/25 10:19 Pain Qfkwgvb-COD-SzE Reductase Allergy ADV-Weaknes Verified 08/31/25 10:19 Inhibitor (Ikjhino-Sca-Czv s Reductase Inhibitor) sulfamethoxazole (From Allergy ALGY-Rash Verified 08/31/25 10:19 Bactrim) trimethoprim (From Bactrim) Allergy ALGY-Rash Verified 08/31/25 10:19 PFS ED 2 PFSH: Medical History (Updated 10/13/25 @ 17:33 by Tho Santamaria MD) Aortic stenosis Bilateral hydrocele Elevated PSA BPH with obstruction/lower urinary tract symptoms Hypertension Coronary artery disease history of CABG x3, 10/2011 Superficial thrombophlebitis DVT (deep venous thrombosis) Surgical History History of Bethany fundoplication S/P TURP (status post transurethral resection of prostate) History of hernia repair Hx of CABG H/O angioplasty History of cholecystectomy H/O transurethral resection of prostate 03/2018 Family History Brother CAD (coronary artery disease) Father CAD (coronary artery disease) Hyperlipidemia Hypertension Mother Cancer Sister Cancer Diabetes Son Diabetes Denies family history of Clotting disorder Dementia Psychiatric illness Chronic kidney disease (CKD) Suicide Anesthesia complication Bleeding disorder Family history of premature coronary artery disease Stroke Social History Smoking and tobacco/nicotine status: unknown if used tobacco/nicotine Second hand smoke exposure: Yes Alcohol intake: current Substance/Drug Use: unknown Adopted: No Caregiver/support person: No Lives independently: No Household members: spouse Marital status: Current occupational status: retired Physical Exam 2 Const: GENERAL APPEARANCE: ill appearing and frail appearing HENMT: COMMON NORMALS: normocephalic and atraumatic HEAD & SCALP: n ormocephalic and atraumatic Eye: COMMON NORMALS: Equal, round and reactive pupils present and EOMs intact bilaterally PUPIL: Yes Equal, round and reactive pupils present Neck/C-Spine: COMMON NORMALS: full ROM and supple Chest: COMMONS NORMALS: normal inspection of the chest Resp: COMMON NORMALS: No retractions and No use of accessory muscles A USCULTATION: rales Cardio: COMMON NORMALS: regular rate, regular rhythm and No murmurs present (Cardio) RATE: regular rate RHYTHM: regular rhythm GI: COMMON NORMALS: Normal to inspection, nondistended, normoactive bowel sounds present, Soft to palpation, non-tender and no masses PALPATION: Yes Soft to palpation Extremity: COMMON NORMALS: normal to inspection and full ROM Neuro: COMMON NORMALS: moves all extremities and no focal motor deficits Psych: COMMON NORMALS: mental status grossly normal, Normal thought process present and cooperative THOUGHT PROCESS: Normal thought process present Skin: COMMON NORMALS: no rashes or lesions noted and no wounds GENERAL SKIN EXAM: no rashes or lesions noted Course 2 Vital Signs: Vital signs: Vital Signs Temperature 97.6 F 10/13/25 15:58 Pulse Rate 74 10/13/25 15:58 Respiratory Rate 20 H 10/13/25 15:58 Blood Pressure 101/66 10/13/25 15:58 Pulse Oximetry 97 10/13/25 15:58 Oxygen Delivery Me thod Nasal Cannula 10/13/25 15:58 Oxygen Flow Rate 4 10/13/25 15:58 MDM - SOB/Dyspnea Medical Decision Making Patient presents here with hypoxia with generalized weakness differential includes fluid overload, pneumonia. X-ray here shows no signs of pneumonia EKG shows no ST elevation no signs of acute heart attack patient had a recent heart attack and then went to heart failure and also is currently on dialysis he has not received dialysis since Thursday is likely fluid overloaded from missing dialysis he is not hyperkalemic here. I spoke to the hospitalist and will admit at this time I did speak to family patient is a DNR DNI at this time as well EKG interpreted by me at 1557 normal sinus rhythm heart rate 66 with occasional PVCs no ST elevation QRS 166 QTc 529 Medical Records I reviewed the patient's medical records. Lab Data I reviewed the patient's lab results. 10/13/25 16:26 10/13/25 16:26 Labs/Radiology: Radiology Impressions Chest X-Ray 10/13/25 15:50 IMPRESSION: Interval placement of a double-lumen large-bore central venous catheter with tip in the right atrium. Cardiomegaly. 3 cm region of pulmonary infiltrate or atelectasis adjacent to the tip of the left heart border, new since prior study. Ill-defined 6 cm airspace abnormality in the left midlung laterally, may be new since prior study, also could represent pneumonia or atelectasis. No pneumothorax or pleural effusion seen. Head CT 10/13/25 16:45 IMPRESSION: Mild cerebral atrophy and cerebellar atrophy. Supratentorial white matter disease. No acute intracranial hemorrhage, mass effect or hydrocephalus. No change since previous study. Laboratory Results WBC 6.28 10^3/uL (3.29-11.43) 10/13/25 16:26 RBC 3.47 10^6/uL (3.85-5.65) L 10/13/25 16: Hgb 11.50 g/dL (11.27-16.99) 10/13/25 16: Hct 36.6 % (37-53) L 10/13/25 16: MCV 105.5 fl (82-101) H 10/13/25 16: MCH 33.1 pg (27-33) H 10/13/25 16: MCHC 31.4 g/dL (30-55) 10/13/25 16: RDW 19.6 % (12.1-15.1) H 10/13/25 16: Plt Count 80 10^3/cmm (157-399) L 10/13/25 16: MPV 12.7 fL (7.4-10.4) H 10/13/25 16:26 Neut % (Auto) 84.1 % 10/13/25 16: Lymph % (Auto) 5.7 % 10/13/25 16: [place] % (Auto) 9.9 % 10/13/25 16:26 Eos % (Auto) 0.0 % 10/13/25 16: Baso % (Auto) 0.0 % 10/13/25: Neut # (Auto) 5.28 10^3/uL (1.8-7.7) 10/13/25 16:26 Lymph # (Auto) 0.4 10^3/uL (0.8-4.8) L 10/13/25 16: [place] # (Auto) 0.6 10^3/uL (0.2-0.9) 10/13/25 16:26 Eos # (Auto) 0.0 10^3/uL (0.0-0.8) 10/13/25 16: Baso # (Auto) 0.0 10^3/uL (0.0-0.1) 10/13/25 16: Nucleated RBC % (auto) 0.3 % 10/13/25: Nucleated RBCs # 0.0 /100WBC 10/13/25 16: PT 17.30 SECONDS (12.1-14.9) H 10/13/25 16:55 INR 1.33 (0.8-1.2) H 10/13/25 16:55 Specimen Type Arterial 10/13/25 16:05 Sample Site Radial, left 10/13/25 16:05 ABG pH 7.40 (7.35-7.45) 10/13/25 16:05 ABG pCO2 39.2 mmHg (35-45) 10/13/25 16:05 ABG pO2 75.2 mmHg (80.0-100.0) L 10/13/25 16:05 ABG PO2/FiO2 Ratio 208 10/13/25 16:05 ABG HCO3 24.2 mmol/L (22-26) 10/13/25 16:05 ABG O2 Saturation 94.7 10/13/25 16:05 ABG Base Excess -0.5 mmol/L (-2.0-2.0) 10/13/25 16:05 Aashish Test Pos 10/13/25 16:05 A-a O2 Gradient 17.0 mmHg (5-10) H 10/13/25 16:05 Hematocrit 34.8 % (42-52) L 10/13/25 16:05 Hgb O2 Saturation 92.1 % (95-100) L 10/13/25 16:05 Carboxyhemoglobin 2.2 %THgb (0.4-20.1) 10/13/25 16:05 Methemoglobin 0.6 % (0.4-1.5) 10/13/25 16:05 Total Hemoglobin 11.3 g/dL (14-18) L 10/13/25 16:05 Sodium 132.0 mmol/L (131-143) 10/13/25 16:05 Potassium 4.4 mmol/L (3.5-5.0) 10/13/25 16:05 Glucose 141.0 mg/dL (70-115) H 10/13/25 16:05 Ionized Calcium 1.1 mmol/L (1.1-1.4) 10/13/25 16:05 O2 Delivery Device Nc 10/13/25 16:05 O2 Liters/Min 4.0 % 10/13/25 16:05 FiO2 36.0 % 10/13/25 16:05 Electric Meter Installer ID Monro 10/13/25 16:05 Sodium 132 mmol/L (136-145) L 10/13/25 16:26 Potassium 5.1 mmol/L (3.5-5.1) 10/13/25 16: Chloride 92 mmol/L (98-107) L 10/13/25 16:26 Carbon Dioxide 23 mmol/L (22-29) 10/13/25 16:26 Anion Gap 22.1 (5-19) H 10/13/25 16:26 BUN 59 mg/dL (8-23) H 10/13/25 16:26 Creatinine 3.5 mg/dL (0.7-1.2) H 10/13/25 16:26 GFR Calculation Not Reportable 10/13/25 16:26 Glucose 142 mg/dL (65-115) H 10/13/25 16:26 Calculated Osmolality 293 mOsm/kg (285-295) 10/13/25 16: Calcium 8.6 mg/dL (8.5-10.5) 10/13/25 16:26 Total Bilirubin 1.7 mg/dL (0.15-1.2) H 10/13/25 16:26 AST 59 U/L (0-40) H 10/13/25 16:26 ALT 74 U/L (0-41) H 10/13/25 16:26 Alkaline Phosphatase 480 U/L (40-130) H 10/13/25 16:26 Troponin T Baseline 612 ng/L (0-15) H* 10/13/25 16:26 NT-Pro-B Natriuret Pep 06124 pg/mL (0-450) H 10/13/25 16:26 Total Protein 6.5 g/dL (6.6-8.7) L 10/13/25 16:26 Albumin 4.0 g/dL (3.5-5.2) 10/13/25 16:26 Globulin 2.5 g/dL (1.3-4.6) 10/13/25 16:26 All radiology interpretation(s) finalized by discharge Discharge Plan Discharge Patient Disposition: Admitted As Inpatient Clinical Impression: Fluid overload, Acute respiratory failure with hypoxia, ESRD on dialysis Condition: Stable Coding Level of Care Code ED Amusement Ride Operator for Lainey Blanchard
[2025-10-13 16:41] LABS: Hematocrit 36.6 % (37-53); Hemoglobin 11.50 g/dL (11.27-16.99); Mean Corpuscular HGB Conc 31.4 g/dL (30-55); Mean Corpuscular Hemoglobin 33.1 pg (27-33); Mean Corpuscular Volume 105.5 fl (82-101); Nucleated Red Blood Cells % 0.3 %; Platelet Count 80 10^3/cmm (157-399); Red Blood Count 3.47 10^6/uL (3.85-5.65); White Blood Count 6.28 10^3/uL (3.29-11.43)
--- NOTE | 2025-10-13 16:45 | CTR_ITS ---
PROCEDURE INFORMATION: Exam: CT Head Without Contrast Exam date and time: 10/13/2025 5:00 PM Age: 85 years old Clinical indication: Altered mental status/memory loss and malaise or fatigue; Confusion or disorientation; Additional info: AMS TECHNIQUE: Imaging protocol: Computed tomography of the head without contrast. 1 image(s) are submitted. Radiation optimization: All CT scans at this facility use at least one of these dose optimization techniques: automated exposure control; mA and/or kV adjustment per patient size (includes targeted exams where dose is matched to clinical indication); or iterative reconstruction. COMPARISON: CT neck wo con [id number] 09/27/2025 6:15 PM RADIATION DOSE METRICS: Total DLP (mGy-cm): 1087.48 FINDINGS: Brain: Mild cerebral atrophy and cerebellar atrophy. Supratentorial white matter disease. No acute intracranial hemorrhage, mass effect or hydrocephalus. Cerebral ventricles: See Brain finding. Paranasal sinuses: Visualized sinuses are unremarkable. No fluid levels. Mastoid air cells: Visualized mastoid air cells are well aerated. Bones: Unremarkable. No acute fracture. Soft tissues: Unremarkable. CT/CT head wo con* [id number] IMPRESSION: Mild cerebral atrophy and cerebellar atrophy. Supratentorial white matter disease. No acute intracranial hemorrhage, mass effect or hydrocephalus. No change since previous study.
--- NOTE | 2025-10-13 16:50 | ECG_ITS ---
[facility] Test Date: 2025-10-13 Pat Name: Anish Colon Department: Room: Gender: Male Vending Manager: : 1940 Requested By: Tho Santamaria Order Number: [id number] Reading MD: MANUEL HUTCHISON Measurements Intervals [place] Rate: 75 P: 12 GA: 145 QRS: 214 QRSD: 181 T: 10 QT: 521 QTc: 583 Interpretive Statements SINUS RHYTHM WITH OCCASIONAL VENTRICULAR PREMATURE COMPLEXES RIGHT AXIS DEVIATION [QRS AXIS > 100] INTRAVENTRICULAR CONDUCTION DELAY [130+ ms QRS DURATION] INFERIOR MYOCARDIAL INFARCTION , PROBABLY OLD [40+ ms Q WAVE AND/OR ST/T ABNORMALITY IN II/aVF] Compared to ECG 10/13/2025 15:57:45 Intraventricular conduction delay now present Myocardial infarct finding still present Electronically Signed On 10-15-2025 23:21:40 ABSORPTION PLANT OPERATOR HELPER by MANUEL HUTCHISON [email or web address] [id number]
[2025-10-13 17:01] VITALS: BP 97/62; PULSE 73; O2SAT 90
[2025-10-13 17:08] LABS: Alanine Aminotransferase 74 U/L (0-41); Albumin Level 4.0 g/dL (3.5-5.2); Alkaline Phosphatase 480 U/L (40-130); Blood Urea Nitrogen 59 mg/dL (8-23); Calcium 8.6 mg/dL (8.5-10.5); Carbon Dioxide 23 mmol/L (22-29); Chloride 92 mmol/L (98-107); Globulin 2.5 g/dL (1.3-4.6); Glucose 142 mg/dL (65-115); Osmolality Calculated 293 mOsm/kg (285-295); Sodium 132 mmol/L (136-145); Total Protein 6.5 g/dL (6.6-8.7)
[2025-10-13 17:12] LABS: INR 1.33 (0.8-1.2); Prothrombin Time 17.30 SECONDS (12.1-14.9)
[2025-10-13 17:14] LABS: Anion Gap 22.1 (5-19); Aspartate Amino Transferase 59 U/L (0-40); Potassium 5.1 mmol/L (3.5-5.1)
[2025-10-13 17:15] LABS: Troponin(5th) Baseline 612 ng/L (0-15)
[2025-10-13 17:29] LABS: NT Pro B Type Natriuretic Pept 54037 pg/mL (0-450)
[2025-10-13 18:07] VITALS: BP 94/64; PULSE 67; O2SAT 96
[2025-10-13 18:46] VITALS: BP 94/64; PULSE 64; O2SAT 95
--- NOTE | 2025-10-13 19:45 | PM.HP ---
Providers/Chief Complaint Admitting Physician: Deepak Moody MD Primary Care Provider: Brandon Lopez MD Chief Complaint: CHEST PAIN History of Present Illness 85-year-old male with past medical history of primary hypertension and CAD with multivessel disease status post CABG in 2011 he was recently hospitalized earlier this month for nausea and abdominal discomfort. He is found to have acute coronary syndrome with saphenous vein graft RCA with 56% stenosis in other grafts with development of cardiogenic shock post PCI. Patient initiated dialysis for the first time earlier this month he has a right subclavian tunneled catheter. He goes to dialysis Thursday, but he missed his dialysis appointment today because he was feeling short of breath, back pain and lethargic. According to most recent cardiology note, patient's current medications are clopidogrel 75 mg daily Aspirin Statin was on hold because of this elevated liver enzymes Amiodarone 400 mg daily for control of multiple sustained ventricular tachycardia He was on midodrine 10 mg 3 times daily for blood pressure support and furosemide 60 mg IV twice daily Today at bedside, I am with the patient's family. Patient is awake, alert, in good spirits. He mainly complains about his back pain and shortness of breath and is frustrated on how much swelling he has in his lower legs. He denies any fevers chills, cough, no other complaints. He has been immobile for some time, stating I have never been in bed this long in my entire life Medications/Allergies Home Medications ?Medication ?Instructions ?Recorded ?Confirmed ?Last Taken ?Type nitroglycerin 0.4 mg sublingual 0.4 mg sublingual Q5M PRN Chest 11/21/19 09/16/25 10/21/20 History tablet (Nitrostat) Pain 2 tabs omeprazole 20 mg capsule,delayed 20 mg PO BID PRN Acid Reflux 01/16/20 09/16/25 10/21/20 History release amlodipine 5 mg tablet 10 mg (2 x 5 mg) PO DAILY #14 tabs 01/07/22 09/16/25 Unknown Rx hydrocodone 7.5 mg-acetaminophen 1 tab PO Q8H PRN Pain 04/20/23 09/16/25 Unknown History 325 mg tablet furosemide 40 mg tablet 40 mg PO DAILY 12/29/24 09/16/25 Unknown History ketoconazole 2 % shampoo See Rx Instructions .Route .COMPLEX 09/16/25 09/16/25 Unknown History lisinopril 20 mg tablet 20 mg PO BID 09/16/25 09/16/25 Unknown History Allergies Allergy/AdvReac Type Severity Reaction Status Date / Time amoxicillin (From Augmentin) Allergy ALGY-Rash Verified 08/31/25 10:19 clavulanic acid (From Allergy ALGY-Rash Verified 08/31/25 10:19 Augmentin) clopidogrel (From Plavix) Allergy ALGY-Joint Verified 08/31/25 10:19 Pain Nghfjry-WBS-SkG Reductase Allergy ADV-Weaknes Verified 08/31/25 10:19 Inhibitor (Ktxenyg-Jmh-Wqz s Reductase Inhibitor) sulfamethoxazole (From Allergy ALGY-Rash Verified 08/31/25 10:19 Bactrim) trimethoprim (From Bactrim) Allergy ALGY-Rash Verified 08/31/25 10:19 PFSH Acute PFSH: Medical History (Updated 10/13/25 @ 17:33 by Tho Santamaria MD) Aortic stenosis Bilateral hydrocele Elevated PSA BPH with obstruction/lower urinary tract symptoms Hypertension Coronary artery disease history of CABG x3, 10/2011 Superficial thrombophlebitis DVT (deep venous thrombosis) Surgical History History of Beth[place] fundoplication S/P TURP (status post transurethral resection of prostate) History of hernia repair Hx of CABG H/O angioplasty History of cholecystectomy H/O transurethral resection of prostate 03/2018 Family History Brother CAD (coronary artery disease) Father CAD (coronary artery disease) Hyperlipidemia Hypertension Mother Cancer Sister Cancer Diabetes Son Diabetes Denies family history of Clotting disorder Dementia Psychiatric illness Chronic kidney disease (CKD) Suicide Anesthesia complication Bleeding disorder Family history of premature coronary artery disease Stroke Social History Smoking and tobacco/nicotine status: unknown if used tobacco/nicotine Second hand smoke exposure: Yes Alcohol intake: current Substance/Drug Use: unknown Adopted: No Caregiver/support person: No Lives independently: No Household members: spouse Marital status: Current occupational status: retired Vitals/I&O/Wt Last Vital Signs Temp 97.6 F 12/26/25 15:58 Pulse 64 10/13/25 18:46 Resp 20 H 10/13/25 15:58 BP 94/64 10/13/25 18:46 Pulse Ox 95 10/13/25 18:46 O2 Del Method Nasal Cannula 10/13/25 18:07 O2 Flow Rate 4 10/13/25 18:07 Weight last 48 hrs Weight 89.176 kg Physical Exam Narrative: General: No apparent distress HENMT: normoceophalic Muskuloskeletal: Full ROM Respiratory: Tachypneic, normal respiratory effort, mild bilateral inspiratory and expiratory wheezing, no use of accessory muscles Cardio: No JVD, regular rate, regular rhythm, S1 S2 normal, II/ systolic murmur, peripheral pulses 2+ radial palpated bilaterally GI: Normal to inspection, nondistended Extremities: Full ROM, normal, normal capillary refill, no cyanosis or edema Neuro: Alert and oriented x4 Psych: Affect normal, denies suicidal ideation, mental status grossly normal Skin: Large amount of dependent edema bilaterally Urinary Catheter Management: Uw: Cath Placed During This Visit: no Reason for Continuing Indwelling Catheter: Acute Urinary Retention or Obstruction Data 10/13/25 16:26 10/13/25 16:26 A&P Assessment and plan 1. ESRD on dialysis: 2. Acute respiratory failure with hypoxia: 3. Fluid overload: Plan: Patient known his hospital, was recently admitted 2 weeks ago for cardiogenic shock status post multiple PCI's, CAD. New onset CKD 5 on intermittent hemodialysis Thursday. ESKD on IHD MWF Acute hypoxic respiratory failure due to pulmonary edema and volume overload Heart failure with reduced ejection fraction 35% per last echo 09/20/2025 Ischemic cardiomyopathy Severe CAD prior CABG and recent restenting of several venous grafts Diffuse interstitial edema Tachypnea Respiratory distress And ICU myopathy ? Discussed with nephrology, patient has a right subclavian TDC, will initiate dialysis with goal of negative fluid balance daily during hospital stay starting tomorrow morning ? Resume antithrombotic, it is reported he has an allergy causing joint pain to clopidogrel however he was taking it regularly last hospitalization with no problem, continue aspirin daily ? Check labs, renal labs, CMP, mag Phos ? Temporize hypervolemic state with supratherapeutic doses of Bumex 3 mg IV 3 times daily, titrate to effect. ? Record urine output, record daily weights, condom catheter ordered ?Morphine 3 mg IVP every 4 hours as needed for respiratory distress, bowel regimen ?PT/OT, case management consult. Patient may require SNF for physical therapy DVT prophylaxis?heparin every 12 GI prophylaxis?famotidine 20 mg p.o. twice daily PDMP PDMP Reviewed: Not Reviewed Attestations Medical Necessity Statement*: Patient is an elderly male with end-stage kidney disease volume overload with hypoxic respiratory failure, heart failure and pulmonary edema. Recent cardio genic shock, ICU debility carried over from his last hospitalization. Patient has multiple comorbidities, is at risk for sudden decompensation. Hospital stay will be 2 midnights or more Coding Level of Care Code Critical Care >/= 30 minutes Critical care time (in minutes): 43 The high probability of a clinically significant, sudden or life threatening deterioration, as referenced in this documentation, required my full and direct attention, intervention and personal management. The critical care time shown is in addition to time spent performing any reported separately billable procedures and includes the following: [x] Data and vital sign review and interpretation [x] Patient assessment, examination and intervention [x] Medication orders and management [x] Patient/Family updates as able [x] Care Coordination and Documentation. Diagnoses ESRD on dialysis N18.6; Z99.2 Acute respiratory failure with hypoxia J96.01 Fluid overload E87.70
[2025-10-13 20:00] VITALS: BP 100/66; PULSE 68; RESP 15; TEMP 37.2; O2SAT 89
--- NOTE | 2025-10-13 20:08 | PC.PHAR ---
SPOKE WITH DR SPENCE TO CONFIRM 3MG IVP BUMEX TID, HE CONFIRMS THAT THIS IS THE INTENDED ORDER
[2025-10-13] MEDS: bumetanide 0.25 mg/mL SDV 10 mL 3 MG IVP (20:49)
[2025-10-13 20:54] VITALS: RESP 18
[2025-10-13] MEDS: morphine 4 mg/mL SDV 1 mL 3 MG IVP (20:54)
[2025-10-13] MEDS: heparin 5,000 unit/mL INJ 1 mL 5000 UNIT SUBCUT (20:55)
[2025-10-13 23:35] LABS: Troponin 5 6HR 560.4 ng/L (0-15)
[2025-10-14] VITALS (41 sets, daily range): BP systolic 64–135; BP diastolic 41–106; PULSE 64–106; RESP 16–31; TEMP 36.3–36.8; O2SAT 78–100
[2025-10-14 04:41] LABS: Hematocrit 36.1 % (37-53); Hemoglobin 10.60 g/dL (11.27-16.99); Mean Corpuscular HGB Conc 29.4 g/dL (30-55); Mean Corpuscular Hemoglobin 32.9 pg (27-33); Mean Corpuscular Volume 112.1 fl (82-101); Nucleated Red Blood Cells % 0 %; Platelet Count 73 10^3/cmm (157-399); Red Blood Count 3.22 10^6/uL (3.85-5.65); White Blood Count 2.91 10^3/uL (3.29-11.43)
[2025-10-14 04:59] LABS: Alanine Aminotransferase 58 U/L (0-41); Albumin Level 3.5 g/dL (3.5-5.2); Alkaline Phosphatase 397 U/L (40-130); Aspartate Amino Transferase 37 U/L (0-40); Blood Urea Nitrogen 63 mg/dL (8-23); Calcium 8.2 mg/dL (8.5-10.5); Carbon Dioxide 23 mmol/L (22-29); Chloride 95 mmol/L (98-107); Globulin 2.1 g/dL (1.3-4.6); Glucose 141 mg/dL (65-115); Magnesium 2.9 mg/dL (1.7-2.3); Osmolality Calculated 298 mOsm/kg (285-295); Sodium 134 mmol/L (136-145); Total Protein 5.6 g/dL (6.6-8.7)
[2025-10-14 05:01] LABS: Anion Gap 20.9 (5-19); Potassium 4.9 mmol/L (3.5-5.1)
[2025-10-14] MEDS: polyethylene glycol 3350 Pkt 17 gm PO (05:08)
[2025-10-14] MEDS: bumetanide 0.25 mg/mL SDV 10 mL 3 MG IVP (05:16)
--- NOTE | 2025-10-14 09:37 | PC.PHAR ---
Pr is out of room for testing. Med rec completed with last fill date and day supply in pharmacy notes.
--- NOTE | 2025-10-14 10:57 | PC.HD ---
After dialysis treatment ended, while awaiting transport, patient coughed up bright red blood with some mucus noted. Patient was cleaned up and taken to [facility] with no further instances of bleeding at this time.
[2025-10-14 11:08] LABS: C.Diff PCR (Lab) POSITIVE (Negative)
--- NOTE | 2025-10-14 11:17 | PC.NURSE ---
during dialysis it was reported to the nurse that the patient was desatting and coughing up blood. Patient also had an episode of diarrhea and has now tested positive for CDiff. Dr Moody notified.
[2025-10-14 11:47] LABS: Clostridioides Difficile Toxin POSITIVE (Negative)
--- NOTE | 2025-10-14 11:54 | PC.NURSE ---
patient's blood pressure is 83/46 and 90/48. Dr Moody notified with orders to hold next dose of Bumex. 1000c per hour over the next 5 hours ordered.
--- NOTE | 2025-10-14 12:21 | PC.PT ---
Hold per nsg. Pt coughing up blood and now has C-diff. Will reattempt at a later date.
--- NOTE | 2025-10-14 12:32 | PM.CONSULT ---
Providers/Reason For Consult Consulting Physician/Specialty*: [facility] /Nephrology Reason for Consult*: ESRD Attending Physician: Deepak Moody MD Primary Care Provider: Brandon Lopez MD History of Present Illness History of Present Illness Anish Colon is a 85 year old male History coronary artery disease and prior CABG, hypertension who was recently initiated on hemodialysis. He is on MWF schedule with dialysis and he, missed dialysis yesterday and presented to the hospital due to shortness of breath and altered mental status. Overnight patient was on 4 L O2 by nasal cannula and underwent dialysis this morning with 3.5 L removed. Postdialysis patient was hypotensive and is currently receiving IV fluids. Patient also became more lethargic. Family at bedside. Family reports that patient had been weak with poor oral intake, for the last few weeks. Review of Systems Narrative: Unable to obtain from patient Medications/Allergies Home Medications ?Medication ?Instructions ?Recorded ?Confirmed ?Last Taken ?Type nitroglycerin 0.4 mg sublingual 0.4 mg sublingual Q5M PRN Chest 11/21/19 10/14/25 10/21/20 History tablet (Nitrostat) Pain 2 tabs omeprazole 20 mg capsule,delayed 20 mg PO BID PRN Acid Reflux 01/16/20 10/14/25 10/21/20 History release amlodipine 5 mg tablet 10 mg (2 x 5 mg) PO DAILY #14 tabs 01/07/22 10/14/25 Unknown Rx hydrocodone 7.5 mg-acetaminophen 1 tab PO Q8H PRN Pain 04/20/23 10/14/25 Unknown History 325 mg tablet furosemide 40 mg tablet 40 mg PO DAILY PRN Edema 12/29/24 10/14/25 Unknown History ketoconazole 2 % shampoo See Rx Instructions .Route .COMPLEX 09/16/25 10/14/25 Unknown History lisinopril 20 mg tablet 20 mg PO BID 09/16/25 10/14/25 Unknown History Allergies Allergy/AdvReac Type Severity Reaction Status Date / Time amoxicillin (From Augmentin) Allergy ALGY-Rash Verified 08/31/25 10:19 clavulanic acid (From Allergy ALGY-Rash Verified 08/31/25 10:19 Augmentin) clopidogrel (From Plavix) Allergy ALGY-Joint Verified 08/31/25 10:19 Pain Ubwlhrp-NLO-OcX Reductase Allergy ADV-Weaknes Verified 08/31/25 10:19 Inhibitor (Odbqksr-Ato-Kdv s Reductase Inhibitor) sulfamethoxazole (From Allergy ALGY-Rash Verified 08/31/25 10:19 Bactrim) trimethoprim (From Bactrim) Allergy ALGY-Rash Verified 08/31/25 10:19 Current Medications Generic Name Dose Route Start Last Admin Trade Name Freq PRN Reason Stop Dose Admin Aspirin 81 mg 10/14/25 05:00 10/14/25 05:08 Aspirin 81 Mg Chew Tablet PO 81 mg DAILY LAURA Administration Bumetanide 3 mg 10/13/25 21:00 10/14/25 05:16 Bumetanide 0.25 Mg/Ml Sdv 10 Ml IVP 3 mg TID LAURA Administration Clopidogrel Bisulfate 75 mg 10/14/25 05:00 10/14/25 05:08 Clopidogrel 75 Mg Tablet PO 75 mg DAILY LAURA Administration Docusate Sodium 100 mg 10/14/25 05:00 10/14/25 05:08 Docusate Sodium 100 Mg Capsule PO 100 mg BID LAURA Administration Famotidine 20 mg 10/14/25 05:00 10/14/25 05:08 Famotidine 20 Mg Tablet PO 20 mg BID LAURA Administration Heparin Sodium (Porcine) 5,000 unit 10/13/25 20:00 10/14/25 11:11 Heparin 5,000 Unit/Ml Inj 1 Ml SUBCUT Not Given Q12H LAURA Albumin Human 12.5 gm in 50 mls @ 60 mls/hr 10/14/25 05:53 10/14/25 11:11 Albumin IV Infused PRN PRN Infusion Hypotension and/or symptomatic Morphine Sulfate 3 mg 10/13/25 19:50 10/13/25 20:54 Morphine 4 Mg/Ml Sdv 1 Ml IVP 3 mg Q4H PRN Administration SEVERE PAIN Polyethylene Glycol 17 gm 10/14/25 05:00 10/14/25 05:08 Polyethylene Glycol 3350 Pkt 17 Gm PO 17 gm DAILY LAURA Administration PFSH Acute PFSH: Medical History (Updated 10/13/25 @ 17:33 by Tho Santamaria MD) Aortic stenosis Bilateral hydrocele Elevated PSA BPH with obstruction/lower urinary tract symptoms Hypertension Coronary artery disease history of CABG x3, 10/2011 Superficial thrombophlebitis DVT (deep venous thrombosis) Surgical History History of [place] fundoplication S/P TURP (status post transurethral resection of prostate) History of hernia repair Hx of CABG H/O angioplasty History of cholecystectomy H/O transurethral resection of prostate 03/2018 Family History Brother CAD (coronary artery disease) Father CAD (coronary artery disease) Hyperlipidemia Hypertension Mother Cancer Sister Cancer Diabetes Son Diabetes Denies family history of Clotting disorder Dementia Psychiatric illness Chronic kidney disease (CKD) Suicide Anesthesia complication Bleeding disorder Family history of premature coronary artery disease Stroke Social History Smoking and tobacco/nicotine status: unknown if used tobacco/nicotine Second hand smoke exposure: Yes Alcohol intake: current Substance/Drug Use: unknown Adopted: No Caregiver/support person: No Lives independently: No Household members: spouse Marital status: Current occupational status: retired Vitals/I&O/Wt Last Vital Signs Temp 97.7 F 10/14/25 10:56 Pulse 80 10/14/25 12:00 Resp 19 H 10/14/25 12:00 BP 80/51 10/14/25 12:00 Pulse Ox 98 10/14/25 12:00 O2 Del Method Nasal Cannula 10/13/25 19:25 O2 Flow Rate 4 10/13/25 18:07 10/13/25 10/14/25 10/14/25 22:59 06:59 14:59 Intake Total 800 / 800 Output Total 400 / 400 3500 / 3500 Balance -400 / -400 -2700 / -2700 Weight last 48 hrs Weight 90.5 kg Weight 92.193 kg Weight 92.2 kg Weight 89.176 kg Physical Exam Narrative: Lethargic, minimally arousable Unable to answer questions Hypotensive with systolic blood pressure in the 70s currently S1-S2 regular rate and rhythm Lungs clear bilaterally per report Abdomen soft nontender Extremities has edema No skin rash Urinary Catheter Management: Wu: Cath Placed During This Visit: yes Reason for Continuing Indwelling Catheter: Accurate Measurement of Urinary Output in Critically Ill Patients Urinary Catheter Date of Insertion: 10/13/25 Urinary Catheter Time of Insertion: 20:30 Data 10/14/25 16:48 10/14/25 16:48 A&P Assessment and plan 1. ESRD on dialysis: 1. End-stage renal disease: On MWF HD as outpatient, missed HD yesterday and underwent HD this morning but hypotensive postdialysis. Plan to transfer to ICU and to be started on pressors and IV fluids. 2. Hypotension, pressors as above 3. History of coronary artery disease and CABG 4. Metabolic acidosis, monitor 5. Pancytopenia PDMP PDMP Reviewed: Not Reviewed Consult Attestations Medical Necessity Statement: per medicine Coding Level of Care Code Acute Code for Chg Fwd Diagnoses ESRD on dialysis N18.6; Z99.2
[2025-10-14] MEDS: norepinephrine 4 MG/250 ML BAG 18.75 MG IV (15:29)
--- NOTE | 2025-10-14 16:15 | XRR_ITS ---
PROCEDURE INFORMATION: Exam: XR Chest Exam date and time: 10/14/2025 5:18 PM Age: 85 years old Clinical indication: Hyperventilation and shortness of breath; Prior surgery; Surgery date: 6+ months; Surgery type: Heart, pacer; Additional info: Increased o2 need hypoxia. Hemoptysis TECHNIQUE: Imaging protocol: Radiologic exam of the chest. Views: 1 view. COMPARISON: CR (CHEST, ) 10/13/2025 4:02 PM FINDINGS: Tubes, catheters and devices: Right IJ central catheter tip at the proximal right atrium. Lungs: Mild pulmonary vascular congestion. Small airspace disease in the lower lungs may represent edema and/or pneumonias. Pleural spaces: No pleural effusion. No pneumothorax. Heart/Mediastinum: Cardiomegaly sternotomy. Bones/joints: See Heart/Mediastinum finding. XR/XR chest 1V portable [id number] IMPRESSION: Stable mild congestive failure changes with lower lung airspace disease.
[2025-10-14] MEDS: pantoprazole 40 mg SDV IVP (16:53)
[2025-10-14] MEDS: morphine 4 mg/mL SDV 1 mL 2 MG IVP (16:54)
[2025-10-14 17:20] LABS: Hematocrit 34.7 % (37-53); Hemoglobin 10.40 g/dL (11.27-16.99); Mean Corpuscular HGB Conc 30.0 g/dL (30-55); Mean Corpuscular Hemoglobin 33.4 pg (27-33); Mean Corpuscular Volume 111.6 fl (82-101); Nucleated Red Blood Cells % 2.0 %; Platelet Count 72 10^3/cmm (157-399); Red Blood Count 3.11 10^6/uL (3.85-5.65); White Blood Count 2.04 10^3/uL (3.29-11.43)
[2025-10-14 17:36] LABS: INR 1.44 (0.8-1.2); Prothrombin Time 18.50 SECONDS (12.1-14.9)
[2025-10-14 17:37] LABS: Fibrinogen 176 mg/dL (174-498)
[2025-10-14 17:45] LABS: Alanine Aminotransferase 48 U/L (0-41); Albumin Level 3.4 g/dL (3.5-5.2); Alkaline Phosphatase 328 U/L (40-130); Anion Gap 25.3 (5-19); Aspartate Amino Transferase 37 U/L (0-40); Blood Urea Nitrogen 39 mg/dL (8-23); Calcium 7.6 mg/dL (8.5-10.5); Carbon Dioxide 17 mmol/L (22-29); Chloride 101 mmol/L (98-107); Globulin 2.0 g/dL (1.3-4.6); Glucose 133 mg/dL (65-115); Magnesium 2.2 mg/dL (1.7-2.3); Osmolality Calculated 299 mOsm/kg (285-295); Potassium 4.3 mmol/L (3.5-5.1); Sodium 139 mmol/L (136-145); Total Protein 5.4 g/dL (6.6-8.7)
--- NOTE | 2025-10-14 18:21 | P.PN_ITS ---
Subjective 2 Subjective: Patient had an eventful day today. This morning he went to dialysis. Successfully withdrew 3 to 3-1/2 L of fluid. Temporized with Bumex overnight, patient put out 0.5 L of urine with the Bumex. Wu in place. Patient mostly complains about his back pain, back spasms from laying in bed. He states that the morphine 3 mg every 6 hours that I been giving is not helping, maybe a little bit. Vitals/I&O/Wt Last Vital Signs Temp 97.7 F 10/14/25 10:56 Pulse 90 10/14/25 16:15 Resp 20 H 10/14/25 16:54 BP 80/51 10/14/25 12:00 Pulse Ox 90 10/14/25 16:54 O2 Del Method Nasal Cannula 10/14/25 16:15 O2 Flow Rate 4 10/14/25 16:15 10/14/25 10/14/25 10/14/25 06:59 14:59 22:59 Intake Total 800 / 800 2009.375 / 2809.375 Output Total 400 / 400 3500 / 3500 Balance -400 / -400 -2700 / -2700 2009.375 / -690.625 Weight last 48 hrs Weight 90.5 kg Weight 92.193 kg Weight 92.2 kg Weight 89.176 kg Physical Exam 2 Narrative: General: Moderate distress, not diaphoretic. Appears pale HENMT: normoceophalic Muskuloskeletal: Full ROM Respiratory: Tachypneic, normal respiratory effort, bilateral inspiratory and expiratory wheezing, no use of accessory muscles Cardio: No JVD, regular rate, regular rhythm, S1 S2 normal, II/ systolic murmur, peripheral pulses 2+ radial palpated bilaterally GI: Normal to inspection, nondistended Extremities: Full ROM, normal, normal capillary refill, +2 bilateral lower extremity pitting edema with dependent edema. Neuro: Alert and oriented x4 Psych: Affect normal, denies suicidal ideation, mental status grossly normal Skin: Large amount of dependent edema bilaterally Urinary Catheter Management: Wu: Cath Placed During This Visit: yes Reason for Continuing Indwelling Catheter: Accurate Measurement of Urinary Output in Critically Ill Patients Urinary Catheter Date of Insertion: 10/13/25 Urinary Catheter Time of Insertion: 20:30 Data 10/14/25 16:48 10/14/25 16:48 A&P Assessment and plan 1. ESRD on dialysis: 2. Acute respiratory failure with hypoxia: 3. Fluid overload: Plan: Patient known his hospital, was recently admitted 2 weeks ago for cardiogenic shock status post multiple PCI's, CAD. New onset CKD 5 on intermittent hemodialysis Thursday. ESKD on IHD MWF Acute hypoxic respiratory failure due to pulmonary edema and volume overload Heart failure with reduced ejection fraction 35% per last echo 09/20/2025 Ischemic cardiomyopathy Severe CAD prior CABG and recent restenting of several venous grafts Diffuse interstitial edema Tachypnea Respiratory distress And ICU myopathy Upper airway blood loss, pharyngeal source likely C. difficile colitis, with severe diarrhea 10/13/2025?discussed with nephrology, patient has a right subclavian TDC, will initiate dialysis with goal of negative fluid balance daily during hospital stay starting tomorrow morning ? Resume antithrombotic, it is reported he has an allergy causing joint pain to clopidogrel however he was taking it regularly last hospitalization with no problem, continue aspirin daily ? Check labs, renal labs, CMP, mag Phos ? Temporize hypervolemic state with supratherapeutic doses of Bumex 3 mg IV 3 times daily, titrate to effect. ? Record urine output, record daily weights, condom catheter ordered ?Morphine 3 mg IVP every 4 hours as needed for respiratory distress, bowel regimen ?PT/OT, case management consult. Patient may require SNF for physical therapy Today?during dialysis, it was noticed he had profuse watery diarrhea. Dialysis nurse ordered C. difficile PCR and toxin, both came back positive. Patient started having complaining of lots of back pain and was having profuse diarrhea, excreting 3 to 5 L, which was replaced with IV saline and lactated Ringer's. Patient was started on low-dose norepinephrine through a peripheral IV and transferred to ICU. He had low saturations at first, normalized with supplemental oxygen, nasal cannula. Rectal tube inserted Vancomycin 500 mg p.o. 4 times daily started During fluid resuscitation, trying to achieve MAP. It was noted that patient started coughing and spitting up bright red clots. No bleed or any material yet seen from the rectal tube. H&H was repeated after resuscitation, remained hemoglobin concentration of 10. No sign of profuse bleeding, chest x-ray was done and shows no hemothorax. Is unclear if the persistent bright red blood is coming from the upper airway or the esophagus or the stomach. General surgery was consulted to investigate, to see if patient might be a candidate for EGD diagnostic and therapeutic. Patient takes aspirin and Plavix for treatment after his multiple coronary stents from his last admission. Plavix was discontinued, aspirin continued. DVT prophylaxis?heparin held GI prophylaxis?switch to Protonix 40 mg IV twice daily for upper GI coverage CODE STATUS discussed with patient and family, his daughter is the power of prosecuting attorney and patient is able to speak for himself. He wants to be allowed natural at this time, except for scheduled procedures. PDMP PDMP Reviewed: Not Reviewed Attestations 2 Medical Necessity Statement*: Patient is an elderly male with end-stage kidney disease volume overload with hypoxic respiratory failure, heart failure and pulmonary edema. Recent cardio genic shock, ICU debility carried over from his last hospitalization. Patient has multiple comorbidities, is at risk for sudden decompensation. Hospital stay will be 2 midnights or more Coding Level of Care Code Acute Code for Chg Fwd Diagnoses ESRD on dialysis N18.6; Z99.2 Acute respiratory failure with hypoxia J96.01 Fluid overload E87.70
--- NOTE | 2025-10-14 19:49 | PC.NURSE ---
Shift report: Recieved report from GREG RN after patient was placed on unit at 1519. Patient with LR infusing wide open bp 64/40's Patient alert - Large liquid brown stool noted. Fecal managment device placed by GREG. Levophed started and normal saline liter bolus given. Patient noted to be spitting up bright red blood 150 ml in past hour- Dr. Moody called to come and evaluate patient at bedside. Code status discussed and care reviewed and updated by this nurse with md at bedside. Family in room at time. MD called to update code status in system states plan to have Dr. Ansari evaluated patient for possible scope. Patient has been npo except vancomycin capsules instructed to give per Dr. Moody request. Dr. Ansari into evaluate patient will scope if okay with anesthesia- report given to Yuliana re possible scope this pm - awaiting anesthesia eval. bp stable on 12 mcg/min levophed. approximately another 100 of blood noted. Hemoglobin and hematocrit stable at this time.
--- NOTE | 2025-10-14 20:02 | PC.NURSE ---
Rectal tube placed by GREG RN.
[2025-10-14] MEDS: norepinephrine 4 MG/250 ML BAG 45 MG IV (20:47)
[2025-10-14] MEDS: succinylcholine 20 mg/mL SDV 10mL 100 MG IVP (21:43)
[2025-10-14] MEDS: etomidate 2 mg/mL INJ SDV 10 mL 30 MG IVP (21:45)
[2025-10-14] MEDS: midazolam hcl 100 MG/100 ML BAG IV ×2 (21:52→21:53)
[2025-10-14] MEDS: fentaNYL 1,000 MCG/100 ML BAG 2.5 MCG IV (21:53)
[2025-10-14] MEDS: rocuronium 10 mg/mL INJ 5mL IVP (22:00)
--- NOTE | 2025-10-14 22:00 | ANES.PROC ---
Anesthesia Procedures Procedure/Date: 10/14/25 Intubation: Time Out Performed: Yes Consent: requested by attending/covering physician, from patient, risks and benefits reviewed, patient agrees to proceed and emergency procedure Sedative (amount): etomidate (30 mg) Paralytic (amount): succinylcholine (100 mg) Laryngoscope: fiber optic video scope (glidscope 4) ET Tube Size: 7.5 ET Tube Uncuffed: Yes Tube Secured Depth (cm): 21 Tube Secured Location: teeth Tube Placement Confirmation: visualized tube passing through cords and confirmation by capnometry Patient Tolerated Procedure: well Intubation Complications: none Additional Comments: Patient's bleeding increased and it was decided to intubate at bedside urgently. After confirming placement and securing tube, EGD was then performed at bedside under sedation led by ICU
--- NOTE | 2025-10-14 22:04 | W.PM.EVENTAC ---
Event Note Event Note: I was called to the room this evening due to complaints of low oxygen saturations and active bleeding. On my arrival, the patient observed to be on 10 L via oxi-mask. His white shirt is stained with fresh blood. His oral cavity is noted to have fresh red blood throughout it surfaces. He was observed to cough and hemoptysis was noted with frothy blood. There is also bleeding from the nose noted. I requested anesthesia and on-call surgery to come to the bedside. Patient did verbalize to our staff that he is okay with intubation but declines chest compressions. Anesthesia proceeded with a intubation. Prior to my leaving the unit, surgeon was at the bedside preparing for his endoscopy.
[2025-10-14] MEDS: midazolam 1 mg/mL INJ 2 mL 2 MG IVP (22:08)
[2025-10-14] MEDS: midazolam 1 mg/mL INJ 2 mL IVP ×2 (22:32→22:40)
[2025-10-14] MEDS: tranexamic acid 1,000 mg/10mL SDV (23:15)
[2025-10-15] VITALS (44 sets, daily range): BP systolic 73–142; BP diastolic 35–78; PULSE 98–105; RESP 14–25; TEMP 35.8–36.5; O2SAT 71–100
--- NOTE | 2025-10-15 00:12 | XRR_ITS ---
PROCEDURE INFORMATION: Exam: XR Chest Exam date and time: 10/15/2025 12:21 AM Age: 85 years old Clinical indication: Other vascular access device placement or adjustment; Central line, non-tunnelled; Prior surgery; Surgery date: 6+ months; Surgery type: Cabg, dialysis cath; Et tube and central line placements; Additional info: Intubation/central line placement TECHNIQUE: Imaging protocol: Radiologic exam of the chest. Views: 1 view. COMPARISON: CR (CHEST, ) 10/14/2025 5:18 PM FINDINGS: Tubes, catheters and devices: Stable right dialysis catheter. Endotracheal tube projects 4.2 cm from the meghna. Left internal jugular central venous access catheter terminates at the superior cavoatrial junction. Multi lead cardiac defibrillator device is seen. Lungs: Increasing central right middle lobe opacification obscuring the right heart margin. Increasing densities of the left lower lobe. Pleural spaces: Unremarkable. No pleural effusion. No pneumothorax. Heart/Mediastinum: See Lungs finding. Diaphragm: Question of air under the diaphragm of the right. Bones/joints: Sternotomy. XR/XR chest 1V portable [id number] IMPRESSION: 1. Medical devices as above. 2. Increasing density along the right middle lobe, correlate with infection. Consider CT for further assessment. 3. Question of right upper quadrant pneumoperitoneum. Consider CT for further assessment.
[2025-10-15] MEDS: norepinephrine 4 MG/250 ML BAG 75 MG IV ×4 (00:19→09:14)
[2025-10-15 00:44] LABS: Hematocrit 27.5 % (37-53); Hemoglobin 8.30 g/dL (11.27-16.99)
--- NOTE | 2025-10-15 00:46 | PM.CONSULT ---
Providers/Reason For Consult Consulting Physician/Specialty*: aleyda douglas MD general surgery Reason for Consult*: evaluate bleeding from pharynx Requesting Physician: MD Frans[place] hospitalist Attending Physician: Deepak Moody MD Primary Care Provider: Brandon Lopez MD History of Present Illness History of Present Illness Anish Colon is a 85 year old male with bleeding from mouth from unknown source. He has had heart stent placed and on plavix and has CHF and renal insuffiency with temp dialysis being done. He was to have AICD placed at outside facility but this was delayed. He started having bleeding in last day. He was transferred back from facility that was going to do AICD, yesterday. He has a mild coagulopathy with INR 1.55 and PT 19. He apparently bit a chunk of his tongue off when he had DC. His anterior tongue was examined by hospitalist and no active bleeding seen. Since this occurred he apparently had oral thrush and has continues sore throat. He is in hospital with C diff infection. Review of Systems Narrative: Constitutional: denies rigors, singnificant weight gain, increased appetite HEENT: denies chronic cough, blurry vision, excessive tearing, eye pain, flashing lights, odynophagia, painful mastication, change in voice, change in taste, chronic sore throat, hypersalivation Heart: denies racing heart, palpitations, othropnea, PND Lungs: denies hemoptysis, pain with deep inspiration, chronic bronchitis GI: denies hematochezia, dysphagia, tenesmus : denies polyuria, hematuria, painful micturation Musculoskeletal: denies hemarthrosis, Muscle wasting, change in amubation Neuro: denies new onset syncope, dysesthesia, dysequilibrium, ptosis eyelid or face SKin: denies new onset hyperalgia, new rash new cyanosis Endocrine: denies new polyuria, polydipsia, polyphagia, heat intolerance, excessive energy Hem/Onc: denies new petechiae, swollen glands, new excessive epstaxis Psych: denies racing thought Medications/Allergies Home Medications ?Medication ?Instructions ?Recorded ?Confirmed ?Last Taken ?Type nitroglycerin 0.4 mg sublingual 0.4 mg sublingual Q5M PRN Chest 11/21/19 10/14/25 10/21/20 History tablet (Nitrostat) Pain 2 tabs omeprazole 20 mg capsule,delayed 20 mg PO BID PRN Acid Reflux 01/16/20 10/14/25 10/21/20 History release amlodipine 5 mg tablet 10 mg (2 x 5 mg) PO DAILY #14 tabs 01/07/22 10/14/25 Unknown Rx hydrocodone 7.5 mg-acetaminophen 1 tab PO Q8H PRN Pain 04/20/23 10/14/25 Unknown History 325 mg tablet furosemide 40 mg tablet 40 mg PO DAILY PRN Edema 12/29/24 10/14/25 Unknown History ketoconazole 2 % shampoo See Rx Instructions .Route .COMPLEX 09/16/25 10/14/25 Unknown History lisinopril 20 mg tablet 20 mg PO BID 09/16/25 10/14/25 Unknown History Allergies Allergy/AdvReac Type Severity Reaction Status Date / Time amoxicillin (From Augmentin) Allergy ALGY-Rash Verified 08/31/25 10:19 clavulanic acid (From Allergy ALGY-Rash Verified 08/31/25 10:19 Augmentin) clopidogrel (From Plavix) Allergy ALGY-Joint Verified 08/31/25 10:19 Pain Rlzmxps-OSE-QcP Reductase Allergy ADV-Weaknes Verified 08/31/25 10:19 Inhibitor (Xhreuha-Ttl-Son s Reductase Inhibitor) sulfamethoxazole (From Allergy ALGY-Rash Verified 08/31/25 10:19 Bactrim) trimethoprim (From Bactrim) Allergy ALGY-Rash Verified 08/31/25 10:19 Current Medications Generic Name Dose Route Start Last Admin Trade Name Freq PRN Reason Stop Dose Admin Aspirin 81 mg 10/14/25 05:00 10/14/25 05:08 Aspirin 81 Mg Chew Tablet PO 81 mg DAILY LAURA Administration Albumin Human 12.5 gm in 50 mls @ 60 mls/hr 10/14/25 05:53 10/14/25 11:11 Albumin IV Infused PRN PRN Infusion Hypotension and/or symptomatic Norepinephrine Bitartrate 4 mg in 250 mls @ 0 mls/hr 10/14/25 15:30 10/15/25 00:19 Levophed IV 20 mcg/min .Q0M LAURA 75 mls/hr Protocol Administration Per Protocol Fentanyl 1,000 mcg in 100 mls @ 0 mls/hr 10/14/25 22:00 10/14/25 23:01 Sublimaze IV 100 mcg/hr .Q0M LAURA 10 mls/hr Protocol Titration Per Protocol Midazolam HCl 100 mg in 100 mls @ 0 mls/hr 10/14/25 22:00 10/14/25 23:59 Versed IV 5 mg/hr .Q0M LAURA 5 mls/hr Protocol Titration Per Protocol Morphine Sulfate 2 mg 10/14/25 16:11 10/14/25 16:54 Morphine 4 Mg/Ml Sdv 1 Ml IVP 2 mg Q4H PRN Administration SEVERE PAIN Pantoprazole Sodium 40 mg 10/14/25 16:15 10/14/25 16:53 Pantoprazole 40 Mg Sdv IVP 40 mg Q12H LAURA Administration Vancomycin HCl 500 mg 10/14/25 17:00 10/14/25 16:56 Vancomycin 125 Mg Capsule PO 500 mg QID LAURA Administration PFSH Acute PFSH: Medical History (Updated 10/15/25 @ 00:54 by Jhon Douglas MD) Aortic stenosis Bilateral hydrocele Elevated PSA BPH with obstruction/lower urinary tract symptoms Hypertension Coronary artery disease history of CABG x3, 10/2011 Superficial thrombophlebitis DVT (deep venous thrombosis) Surgical History History of Bethany fundoplication S/P TURP (status post transurethral resection of prostate) History of hernia repair Hx of CABG H/O angioplasty History of cholecystectomy H/O transurethral resection of prostate 03/2018 Family History Brother CAD (coronary artery disease) Father CAD (coronary artery disease) Hyperlipidemia Hypertension Mother Cancer Sister Cancer Diabetes Son Diabetes Denies family history of Clotting disorder Dementia Psychiatric illness Chronic kidney disease (CKD) Suicide Anesthesia complication Bleeding disorder Family history of premature coronary artery disease Stroke Social History Smoking and tobacco/nicotine status: unknown if used tobacco/nicotine Second hand smoke exposure: Yes Alcohol intake: current Substance/Drug Use: unknown Adopted: No Caregiver/support person: No Lives independently: No Household members: spouse Marital status: Current occupational status: retired Vitals/I&O/Wt Last Vital Signs Temp 97.8 F 10/14/25 18:00 Pulse 88 10/14/25 21:00 Resp 16 10/14/25 21:50 BP 109/68 10/14/25 21:00 Pulse Ox 100 10/14/25 21:50 O2 Del Method Nasal Cannula 10/14/25 16:45 O2 Flow Rate 5 10/14/25 16:45 FiO2 100 10/14/25 21:50 10/14/25 10/14/25 10/15/25 14:59 22:59 06:59 Intake Total 800 / 800 2351.092 / 3151.092 107.867 / 3258.959 Output Total 3500 / 3500 Balance -2700 / -2700 2351.092 / -348.908 107.867 / -241.041 Weight last 48 hrs Weight 199 lb 8.293 oz Weight 203 lb 4 oz Weight 203 lb 4.259 oz Weight 196 lb 9.6 oz Physical Exam Narrative: Patient is a well developed well nourished and in NAD and is afebrile with vitals stable and is answering questions appropriately with a normal affect and is alert and oriented x3 HEENT: normocephalic with normal external ears and nonicteric, blood in oropharynx and some now coming from left nares, trachea midline with no large masses visualized Heart: RRR, no gallops murmurs or rubs, normal PMI with no thrills Lungs: normal excursions, no loud audible wheezing, no subcutaneous emphysema Abdomen: nondistended, no gross hepatosplenomegaly, no masses, no rigidity or rebound, no loud borborygmi Neuro: nonfocal, HORNER, grossly normal sensation Musculoskeletal: good muscle tone, no fasciculations, normal gait Skin: pink warm and dry with no rashes or ecchymosis Vascular: good radial pulses, no ulceration, less than 2 second capillary refill in hand : deferred Urinary Catheter Management: Wu: Cath Placed During This Visit: yes Reason for Continuing Indwelling Catheter: Accurate Measurement of Urinary Output in Critically Ill Patients Urinary Catheter Date of Insertion: 10/13/25 Urinary Catheter Time of Insertion: 20:30 Data 10/15/25 00:10 10/14/25 16:48 A&P Assessment and plan 1. Postoperative bleeding from mouth: Plan: Will get EGD to look for bleeding source from esophagus and stomach and duodenum. He may be bleeding from tongue, tonsils and pharynx or nose. Will need to be intubated to protect airway and possible transfer depending on source of bleeding and ability to control it. He may benefit from transfusion and normalizing PT. He understands risks, benefit and alternatives to procedure and wishes to proceed. Risks include bleeding, infection, cardiopulmonary problems, perforation, missed lesion, aspiration, recurrent bleeding. Daughter who has POA is prensent and agreeing to proceed with procedures. He is now willing to have transfusions, cardioversion, no chest compressions and no prolonged ventilation if he becomes mentally incapacitated and there is little hope of him regaining his faculties and future abilty to regain his ability to enjor life as he is used to. PDMP PDMP Reviewed: Not Reviewed Coding Level of Care Code 02206 Diagnoses Postoperative bleeding from mouth
[2025-10-15] MEDS: tranexamic acid 1,000 MG/100 ML PREMIX 600 MG IV (01:00)
[2025-10-15] MEDS: vasopressin 40 UNIT/100 ML PREMIX IV (01:15)
[2025-10-15 01:55] LABS: ABG PCO2 39.5 mmHg (35-45); ABG PH Result 7.36 (7.35-7.45); Alveolar-Arterial Oxygen Gradi 39.1 mmHg (5-10); Arterial Blood Gas Hematocrit 29.0 % (42-52); Blood Gas Operator Identificat SAM; Blood Gas Sample Site Brachial, right; Blood Gas Sample Type Arterial; Blood Gas Tidal Volume 0.40; Carboxyhemoglobin 1.7 %THgb (0.4-20.1); Glucose Level-ABG 171.0 mg/dL (70-115); HCO3 ABG 22.1 mmol/L (22-26); Ionized Calcium Level - ABG 1.0 mmol/L (1.1-1.4); Methemoglobin 1.1 % (0.4-1.5); Oxygen Saturation ABG > 99.1; PO2 ABG 348.0 mmHg (80.0-100.0); PO2 FiO2 Ratio Arterial Blood 348; Potassium Level - ABG 4.6 mmol/L (3.5-5.0); Sodium Level - ABG 137.0 mmol/L (131-143)
[2025-10-15 01:56] LABS: PEEP 5.0 cmH20
--- NOTE | 2025-10-15 04:22 | CTR_ITS ---
PROCEDURE INFORMATION: Exam: CT Abdomen And Pelvis Without Contrast Exam date and time: 10/15/2025 5:08 AM Age: 85 years old Clinical indication: Other: Possible pneumoperitoneum; Prior surgery; Surgery date: 6+ months; Surgery type: Cabg. Gb. Bethany fundoplication. Hernia repair. Turp. Concern for possible ruq pneumoperitoneum noted on most recent cxr. Wu with rectal tube in place. ; Additional info: Questionable right pneumoperitoneum on CT TECHNIQUE: Imaging protocol: Computed tomography of the abdomen and pelvis without contrast. Radiation optimization: All CT scans at this facility use at least one of these dose optimization techniques: automated exposure control; mA and/or kV adjustment per patient size (includes targeted exams where dose is matched to clinical indication); or iterative reconstruction. COMPARISON: CT abdomen pelvis con [id number] 09/21/2025 6:34 AM RADIATION DOSE METRICS: Total DLP (mGy-cm): 2946.56 FINDINGS: Tubes, catheters and devices: Rectal tube in place. Lungs: Increased consolidative opacity in the right lower lobe with partially visualized lobular opacity in the right infrahilar region. Bronchial wall thickening and mucous plugging in the lower lobes. Pleural spaces: Moderate bilateral pleural effusions. Liver: Normal appearance of the liver. Gallbladder and biliary ducts: No calcified stones or ductal dilation. Pancreas: No ductal dilation. Spleen: Unremarkable. Adrenal glands: Unremarkable. Kidneys and ureters: No hydronephrosis. Stomach and bowel: No obstruction. No mucosal thickening. Appendix: Normal appendix. Intraperitoneal space: Trace free fluid. No pneumoperitoneum. Vasculature: Severe atherosclerotic calcifications of the infrarenal abdominal aorta with ectasia measuring up to 2.6 cm. Lymph nodes: No enlarged lymph nodes. Urinary bladder: Wu catheter is in place within a decompressed urinary bladder. Reproductive: Prostatomegaly. Bones/joints: Unremarkable. No acute fracture. Soft tissues: Partially visualized fat containing bilateral inguinal hernias. Some residual fluid is seen in the right groin. CT/CT abdomen pelvis wo con [id number] IMPRESSION: 1. Increased consolidative opacity in the right lower lobe concerning for pneumonia with partially visualized lobulated opacity in the right infrahilar region. A dedicated chest CT with contrast is recommended to evaluate for a possible right hilar mass. 2. No pneumoperitoneum.
--- NOTE | 2025-10-15 04:33 | PC.NURSE ---
Patient coughing up increasing amounts of timo blood mixed with frothy blood. Patient's breath sounds audible without stethoscope as very crackly and wet. Patient stating that he feels like he cannot breathe. Dr Nichols called and updated, stated he would come down and see the patient and to call Dr Ansari as well, as patient was awaiting a scope by him. Dr Nichols to bedside and this nurse called Dr Ansari. Updated Dr Ansari who stated to page anesthesia to ICU. Dr Ansari and anesthesia to ICU. Confirmed with patient that he was alert and oriented. Patient stated that he was okay with intubation, defibrillation, and medications, but did not wish to receive chest compressions. Patient intubated by Dr Lee. 30 mg of etomidate - 3 100 mg of succ - 2142 Tube and color change - 2144 Patient received scope from Dr Ansari with GI lab staff present after intubation. Dr Ansari placed gauze soaked in TXA in patient's mouth and a rhino rocket to patient's left nostril. Dr Ivory bedside in ICU and replaced rhino rockets to both nostrils as patient was still actively bleeding. Dr Ivory also placed central line to patient's left IJ, patency and placement confirmed by x-ray. Over the course of shift, patient has required maximum doses of levophed, addition of vasopressin, and 1 unit of RBCs, currently infusing. Patient's daughter Maria Antonia called at approximately 0430 and updated on situation. Patient's daughter voicing no questions at this time.
--- NOTE | 2025-10-15 05:43 | PM.CCN ---
Critical Care Event Note Consulted by hospitalist for persistent epistaxis. Patient had a anterior Rhino Rocket placed but was continuing to bleed rather aggressively. Critical Care Time Code activated: No Critical Care Time (min): 0 Procedures Epistaxis Control Nostril: bilateral Direct inspection: unable to visualize Cautery used: none Device inserted: hemostatic balloon Patient tolerated procedure: well Complications: continued epistaxis (Continue to small amount of bleeding posteriorly) Coding Level of Care Code Acute Code for g Fwaugustina
--- NOTE | 2025-10-15 05:49 | PM.CCN ---
Critical Care Event Note Consulted by hospitalist request for central line for increased access. Critical Care Time Code activated: No Critical Care Time (min): 0 Procedures Central Line Placement^ Left IJ: Time out performed: Yes Patient placed on monitor/pulse ox: Yes MD prep: mask, gown and gloves Central line prep: Chlorhexidine scrub Ultrasound used for placement: Yes Central line lumen inserted: triple Post procedure: sutured in place, good blood return, all ports aspirated, flushed, capped and sterile dressing applied Post procedure x-ray: other Additional comments: Initially placed in the left IJ. The most proximal sideport was not aspirating well on x-ray blinded floated into the left subclavian vein. It was retracted. A new kit was retrieved and a second attempt was made continue to go to the left subclavian. X-ray remained in place we reattempted a third time and was able to float it properly into the superior vena cava confirmed by x-ray. The catheter was then floated through wire removed in usual fashion. Chest x-ray confirmed placement. Coding Level of Care Code Acute Code for Chg Fwd
[2025-10-15] MEDS: fentaNYL 1,000 MCG/100 ML BAG 10 MCG IV (06:06)
--- NOTE | 2025-10-15 06:13 | P.TS_ITS ---
Transfer Summary Providers Date of Admission: 10/13/25 17:24 Date of Discharge/Transfer: 10/15/25 Attending Provider at Admission: Deepak Moody MD Attending Provider at Transfer: Deepak Moody MD Consults: Jhon Ansari MD(general surgery) Primary Care Provider: Brandon Lopez MD Transfer Plans: Anticipated date of transfer: 10/15/25 . Receiving Facility: [facility] . Receiving Provider: Dr. Bowie . Diagnoses at Discharge Discharge Diagnosis 1. Postoperative bleeding from mouth: 2. ESRD on dialysis: 3. Acute respiratory failure with hypoxia: 4. Acute congestive heart failure: 5. C. difficile colitis: 6. Intensive care (ICU) myopathy: Reason for Visit Reason for Visit CHEST PAIN Brief History: Per the H&P from 10/13/25: 85-year-old male with past medical history of primary hypertension and CAD with multivessel disease status post CABG in 2011 he was recently hospitalized earlier this month for nausea and abdominal discomfort. He is found to have acute coronary syndrome with saphenous vein graft RCA with 56% stenosis in other grafts with development of cardiogenic shock post PCI. Patient initiated dialysis for the first time earlier this month he has a right subclavian tunneled catheter. He goes to dialysis Thursday, but he missed his dialysis appointment today because he was feeling short of breath, back pain and lethargic. According to most recent cardiology note, patient's current medications are clopidogrel 75 mg daily Aspirin Statin was on hold because of this elevated liver enzymes Amiodarone 400 mg daily for control of multiple sustained ventricular tachycardia He was on midodrine 10 mg 3 times daily for blood pressure support and furosemide 60 mg IV twice daily Today at bedside, I am with the patient's family. Patient is awake, alert, in good spirits. He mainly complains about his back pain and shortness of breath and is frustrated on how much swelling he has in his lower legs. He denies any fevers chills, cough, no other complaints. He has been immobile for some time, stating I have never been in bed this long in my entire life Hospital Course Hospital Course 10/13/2025?discussed with nephrology, patient has a right subclavian TDC, will initiate dialysis with goal of negative fluid balance daily during hospital stay starting tomorrow morning ? Resume antithrombotic, it is reported he has an allergy causing joint pain to clopidogrel however he was taking it regularly last hospitalization with no problem, continue aspirin daily ? Check labs, renal labs, CMP, mag Phos ? Temporize hypervolemic state with supratherapeutic doses of Bumex 3 mg IV 3 times daily, titrate to effect. ? Record urine output, record daily weights, condom catheter ordered ?Morphine 3 mg IVP every 4 hours as needed for respiratory distress, bowel regimen ?PT/OT, case management consult. Patient may require SNF for physical therapy 10/14/2025 -during dialysis, it was noticed he had profuse watery diarrhea. Dialysis nurse ordered C. difficile PCR and toxin, both came back positive. Patient started having complaining of lots of back pain and was having profuse diarrhea, excreting 3 to 5 L, which was replaced with IV saline and lactated Ringer's. Patient was started on low-dose norepinephrine through a peripheral IV and transferred to ICU. He had low saturations at first, normalized with supplemental oxygen, nasal cannula. Rectal tube inserted Vancomycin 500 mg p.o. 4 times daily started During fluid resuscitation, trying to achieve MAP. It was noted that patient started coughing and spitting up bright red clots. No bleed or any material yet seen from the rectal tube. H&H was repeated after resuscitation, remained hemoglobin concentration of 10. No sign of profuse bleeding, chest x-ray was done and shows no hemothorax. Is unclear if the persistent bright red blood is coming from the upper airway or the esophagus or the stomach. General surgery was consulted to investigate, to see if patient might be a candidate for EGD diagnostic and therapeutic. Patient takes aspirin and Plavix for treatment after his multiple coronary stents from his last admission. Plavix was discontinued, aspirin continued. Events overnight from 10/14 - 10/15 Industrial Psychology Teacher was called to the room due to complaints of low oxygen saturations and active bleeding. On arrival, the patient observed to be on 10 L via oxi-mask. His white shirt is stained with fresh blood. His oral cavity is noted to have fresh red blood throughout its surfaces. He was observed to cough and was noted with fresh red frothy blood. There is also bleeding from the nose noted. I requested anesthesia and on-call surgery to come to the bedside. Patient did verbalize to our staff that he is okay with intubation but declines chest compressions. Anesthesia proceeded with a intubation. General surgery followed and proceeded with EGD. There appeared to be a submucosal hematoma in the oropharynx. This was later determined to be an adherent clot which was removed. Following the procedure, rhinorockets were placed, then repositioned after ongoing bleeding was noted. Bleeding persisted and 1000mg IV TXA was provided which slowed the hemorrhage. Of note, the patient was placed on pressor support with levophed after intubation and required vasopressin for further support. CBC was updated and hemoglobin was decreased to 8.3(10/15 0010), down from 10.4(10/14 1648). 1u of PRBC was transfused which improved his blood pressure. A left IF central line was placed and CXR to confirm placement made mention of possible pneumoperitoneum. This was not demonstrated on recommended CT follow up. However, CT of the abd/pelvis was reported with an increased consolidative opacity in the right lower lobe concerning for pneumonia with partially visualized lobulated opacity in the right infrahilar region. As we do not have ENT available, patient was referred to [facility] for continued support with ENT available. Physical Exam Narrative: On initial exam, patient was awake handiwork, appeared to be in acute distress. His white shirt was stained with multiple areas of fresh blood. Oral cavity inspected to show fresh blood coating the anterior surfaces. Heart was a regular rate and rhythm. No murmurs, rubs, gallops. Lungs with coarse breath sounds bilaterally. 3+ bilateral lower extremity edema appreciated. A Wu catheter was present with light brown, scant urine. Rectal tube is also present. Urinary Catheter Management: Wu: Cath Placed During This Visit: yes Reason for Continuing Indwelling Catheter: Accurate Measurement of Urinary Output in Critically Ill Patients Urinary Catheter Date of Insertion: 10/13/25 Urinary Catheter Time of Insertion: 20:30 TS Data Studies Completed and Pending Pending at discharge Category Date Time Status CT abdomen pelvis wo con [id number] Stat Cat Scan 10/15/25 04:22 Taken Complete Blood Count w/Auto AM LABS Lab 10/15/25 04:00 Ordered Complete Blood Count w/Auto AM LABS Lab 10/16/25 04:00 Ordered Comprehensive Metabolic Panel AM LABS Lab 10/15/25 04:00 Ordered Comprehensive Metabolic Panel AM LABS Lab 10/16/25 04:00 Ordered Magnesium AM LABS Lab 10/15/25 04:00 Ordered Magnesium AM LABS Lab 10/16/25 04:00 Ordered Phosphorus AM LABS Lab 10/15/25 04:00 Ordered Phosphorus AM LABS Lab 10/16/25 04:00 Ordered Pathology: Surgical [PTH] Routine Pth 10/14/25 23:18 Ordered Completed Studies During Hospitalization Category Date Time Status CT head wo con* [id number] Stat Cat Scan 10/13/25 16:45 Completed XR chest 1V portable [id number] Routine Exams 10/14/25 16:15 Completed XR chest 1V portable [id number] Stat Exams 10/13/25 15:50 Completed XR chest 1V portable [id number] Stat Exams 10/15/25 00:12 Completed Laboratory Last Values WBC 2.04 10^3/uL (3.29-11.43) L 10/14/25 16:48 RBC 3.11 10^6/uL (3.85-5.65) L 10/14/25 16:48 Hgb 8.30 g/dL (11.27-16.99) L 10/15/25 00:10 Hct 27.5 % (37-53) L 10/15/25 00:10 MCV 111.6 fl (82-101) H 10/14/25 16:48 MCH 33.4 pg (27-33) H 10/14/25 16:48 MCHC 30.0 g/dL (30-55) 10/14/25 16:48 RDW 19.5 % (12.1-15.1) H 10/14/25 16:48 Plt Count 72 10^3/cmm (157-399) L 10/14/25 16:48 MPV 12.7 fL (7.4-10.4) H 10/14/25 16:48 Neut % (Auto) 73.5 % 10/14/25 16:48 Lymph % (Auto) 5.4 % 10/14/25 16:48 [place] % (Auto) 19.6 % 10/14/25 16:48 Eos % (Auto) 0.0 % 10/14/25 16:48 Baso % (Auto) 0.5 % 10/14/25 16:48 Neut # (Auto) 1.50 10^3/uL (1.8-7.7) L 10/14/25 16:48 Lymph # (Auto) 0.1 10^3/uL (0.8-4.8) L 10/14/25 16:48 [place] # (Auto) 0.4 10^3/uL (0.2-0.9) 10/14/25 16:48 Eos # (Auto) 0.0 10^3/uL (0.0-0.8) 10/14/25 16:48 Baso # (Auto) 0.0 10^3/uL (0.0-0.1) 10/14/25 16:48 Nucleated RBC % (auto) 2.0 % 10/14/25 16:48 Nucleated RBCs # 0.0 /100WBC 10/14/25 16:48 PT 18.50 SECONDS (12.1-14.9) H 10/14/25 16:48 INR 1.44 (0.8-1.2) H 10/14/25 16:48 Fibrinogen 176 mg/dL (174-498) 10/14/25 16:48 Specimen Type Arterial 10/15/25 01:42 Sample Site Brachial, right 10/15/25 01:42 ABG pH 7.36 (7.35-7.45) 10/15/25 01:42 ABG pCO2 39.5 mmHg (35-45) 10/15/25 01:42 ABG pO2 348.0 mmHg (80.0-100.0) H 10/15/25 01:42 ABG PO2/FiO2 Ratio 348 10/15/25 01:42 ABG HCO3 22.1 mmol/L (22-26) 10/15/25 01:42 ABG O2 Saturation > 99.1 10/15/25 01:42 ABG Base Excess -3.1 mmol/L (-2.0-2.0) L 10/15/25 01:42 Aashish Test N/a 10/15/25 01:42 A-a O2 Gradient 39.1 mmHg (5-10) H 10/15/25 01:42 Hematocrit 29.0 % (42-52) L 10/15/25 01:42 Hgb O2 Saturation 98.3 % (95-100) 10/15/25 01:42 Carboxyhemoglobin 1.7 %THgb (0.4-20.1) 10/15/25 01:42 Methemoglobin 1.1 % (0.4-1.5) 10/15/25 01:42 Total Hemoglobin 9.5 g/dL (14-18) L 10/15/25 01:42 Sodium 137.0 mmol/L (131-143) 10/15/25 01:42 Potassium 4.6 mmol/L (3.5-5.0) 10/15/25 01:42 Glucose 171.0 mg/dL (70-115) H 10/15/25 01:42 Ionized Calcium 1.0 mmol/L (1.1-1.4) L 10/15/25 01:42 O2 Delivery Device Vent 10/15/25 01:42 O2 Liters/Min 4.0 % 10/13/25 16:05 FiO2 100.0 % 10/15/25 01:42 Tidal Volume 0.40 10/15/25 01:42 PEEP 5.0 cmH20 10/15/25 01:42 Emergency Medicine Medical Director ID Liam 10/15/25 01:42 Sodium 139 mmol/L (136-145) 10/14/25 16:48 Potassium 4.3 mmol/L (3.5-5.1) 10/14/25 16:48 Chloride 101 mmol/L (98-107) 10/14/25 16:48 Carbon Dioxide 17 mmol/L (22-29) L 10/14/25 16:48 Anion Gap 25.3 (5-19) H 10/14/25 16:48 BUN 39 mg/dL (8-23) H 10/14/25 16:48 Creatinine 2.6 mg/dL (0.7-1.2) H 10/14/25 16:48 GFR Calculation Not Reportable 10/14/25 16:48 Glucose 133 mg/dL (65-115) H 10/14/25 16:48 Calculated Osmolality 299 mOsm/kg (285-295) H 10/14/25 16:48 Calcium 7.6 mg/dL (8.5-10.5) L 10/14/25 16:48 Phosphorus 3.6 mg/dL (2.5-4.5) 10/14/25 16:48 Magnesium 2.2 mg/dL (1.7-2.3) 10/14/25 16:48 Total Bilirubin 1.9 mg/dL (0.15-1.2) H 10/14/25 16:48 AST 37 U/L (0-40) 10/14/25 16:48 ALT 48 U/L (0-41) H 10/14/25 16:48 Alkaline Phosphatase 328 U/L (40-130) H 10/14/25 16:48 Troponin T Baseline 612 ng/L (0-15) H* 10/13/25 16:26 Troponin T 60 Minute 567.1 ng/L (0-15) H 10/13/25 16:55 Delta Troponin T -44.9 ABS# (0-10) L 10/13/25 16:55 Troponin T Hi Sens 6Hr 560.4 ng/L (0-15) H 10/13/25 22:41 Troponin T Hi Sens 6Hr Delta -51.6 ng/L (0-12) L 10/13/25 22:41 NT-Pro-B Natriuret Pep 15344 pg/mL (0-450) H 10/13/25 16:26 Total Protein 5.4 g/dL (6.6-8.7) L 10/14/25 16:48 Albumin 3.4 g/dL (3.5-5.2) L 10/14/25 16:48 Globulin 2.0 g/dL (1.3-4.6) 10/14/25 16:48 C. difficile (PCR) Positive (Negative) H 10/14/25 09:46 C.difficile Tox Confrm Positive (Negative) H 10/14/25 09:46 Blood Type A Positive 10/15/25 00:10 Rho(D) Type Rh positive 10/15/25 00:10 Antibody Screen Negative 10/15/25 00:10 Crossmatch See Detail 10/15/25 00:[address] 10/13/25 16:45 IMPRESSION: Mild cerebral atrophy and cerebellar atrophy. Supratentorial white matter disease. No acute intracranial hemorrhage, mass effect or hydrocephalus. No change since previous study. Chest X-Ray 10/15/25 00:12 IMPRESSION: 1. Medical devices as above. 2. Increasing density along the right middle lobe, correlate with infection. Consider CT for further assessment. 3. Question of right upper quadrant pneumoperitoneum. Consider CT for further assessment. Recent Clincial Data Last Vital Signs Temp 97.0 F L 10/15/25 04:46 Pulse 103 H 10/15/25 04:50 Resp 20 H 10/15/25 04:46 BP 126/64 10/15/25 04:46 Pulse Ox 100 10/15/25 04:46 O2 Del Method Nasal Cannula 10/14/25 16:45 O2 Flow Rate 5 10/14/25 16:45 FiO2 50 10/15/25 04:46 Vital Signs Temp Pulse Resp BP Pulse Ox FiO2 10/15/25 04:50 103 H 10/15/25 04:46 97.0 F L 103 H 21 H 126/64 100 10/15/25 04:46 20 H 100 50 10/15/25 03:50 96.5 F L 73/35 10/15/25 03:35 104 H 10/15/25 03:34 96.5 F L 104 H 18 83/62 100 10/15/25 03:15 96.9 F L 104 H 24 H 77/62 100 10/15/25 01:45 103 H 90/49 100 10/15/25 01:30 103 H 16 93/57 100 10/15/25 01:20 16 100 100 10/15/25 01:15 101 H 20 H 118/50 100 10/15/25 01:00 102 H 25 H 96/74 100 10/15/25 00:45 101 H 20 H 97/69 100 10/15/25 00:30 101 H 18 113/54 100 10/15/25 00:15 98 18 98/61 100 10/15/25 00:00 103 H 16 107/66 100 10/14/25 23:45 83 18 101/66 100 10/14/25 23:30 101 H 16 102/60 100 10/14/25 23:15 101 H 20 H 104/66 100 10/14/25 23:00 102 H 22 H 110/60 100 10/14/25 22:45 101 H 22 H 105/54 100 10/14/25 22:30 64 23 H 114/53 100 10/14/25 22:15 95 23 H 94/50 100 10/14/25 22:00 91 18 115/53 100 10/14/25 21:50 16 100 100 10/14/25 21:45 98 25 H 108/74 99 10/14/25 21:30 99 25 H 126/52 95 10/14/25 21:15 95 27 H 109/68 87 L 10/14/25 21:00 88 25 H 109/68 78 L 10/14/25 20:45 93 25 H 111/76 92 10/14/25 20:30 97 31 H 85/69 88 L 10/14/25 20:15 100 22 H 85/69 85 L 10/14/25 20:00 84 28 H 106/57 80 L 10/14/25 19:45 94 25 H 106/57 91 10/14/25 19:30 97 25 H 113/62 89 L 10/14/25 19:15 95 22 H 120/66 88 L 10/14/25 19:00 97 28 H 106/69 88 L 10/14/25 18:30 96 27 H 118/65 91 10/14/25 18:15 98 27 H 117/67 90 Intake & Output/Weight 10/12/25 10/13/25 10/14/25 10/15/25 06:59 06:59 06:59 06:59 Intake Total 4011.317 / 4011.317 Output Total 400 / 400 3500 / 3500 Balance -400 / -400 511.317 / 511.317 Weight 92.193 kg 90.5 kg Vitals Last Vital Signs Temp 97.0 F L 10/15/25 04:46 Pulse 103 H 10/15/25 04:50 Resp 20 H 10/15/25 04:46 BP 126/64 10/15/25 04:46 Pulse Ox 100 10/15/25 04:46 O2 Del Method Nasal Cannula 10/14/25 16:45 O2 Flow Rate 5 10/14/25 16:45 FiO2 50 10/15/25 04:46 TS Medications Medications Acetaminophen (Acetaminophen 325 Mg Tablet) 650 mg PO Q6H PRN PRN Reason: Mild/Mod Pain Or Temp >/= 101 Aspirin (Aspirin 81 Mg Chew Tablet) 81 mg PO DAILY [facility]URA Last Admin: 10/14/25 05:08 Dose: 81 mg Sodium Chloride (Sodium Chloride 0.9%) 1,000 mls @ 0 mls/hr IV .Q0M PRN PRN Reason: hypotension or symptomatic Albumin Human (Albumin) 12.5 gm in 50 mls @ 60 mls/hr IV PRN PRN PRN Reason: Hypotension and/or symptomatic Last Infusion: 10/14/25 11:11 Dose: Infused Norepinephrine Bitartrate (Levophed) 4 mg in 250 mls @ 0 mls/hr IV .Q0M [facility]; Protocol Last Admin: 10/15/25 03:22 Dose: 20 mcg/min, 75 mls/hr Fentanyl (Sublimaze) 1,000 mcg in 100 mls @ 0 mls/hr IV .Q0M [facility]; Protocol Last Admin: 10/15/25 06:06 Dose: 100 mcg/hr, 10 mls/hr Midazolam HCl (Versed) 100 mg in 100 mls @ 0 mls/hr IV .Q0M [facility]; Protocol Last Titration: 10/14/25 23:59 Dose: 5 mg/hr, 5 mls/hr Vasopressin (Vasostrict) 40 unit in 100 mls @ 0 mls/hr IV .Q0M [facility]; Protocol Last Titration: 10/15/25 02:33 Dose: 0.03 unit/min, 4.5 mls/hr Morphine Sulfate (Morphine 4 Mg/Ml Sdv 1 Ml) 2 mg IVP Q4H PRN PRN Reason: SEVERE PAIN Last Admin: 10/14/25 16:54 Dose: 2 mg Pantoprazole Sodium (Pantoprazole 40 Mg Sdv) 40 mg IVP Q12H [facility] Last Admin: 10/14/25 16:53 Dose: 40 mg Rocuronium Trenary (Rocuronium 10 Mg/Ml Inj 5ml) 20 mg IVP ONCE PRN PRN Reason: For PRN use during scope Sodium Chloride (Sodium Chloride 0.9% 100 Ml Bag) 50 ml IV PRN PRN PRN Reason: Blood transfusion prime and flush Stop: 10/16/25 01:37 Vancomycin HCl (Vancomycin 125 Mg Capsule) 500 mg PO QID [facility] Last Admin: 10/14/25 16:56 Dose: 500 mg Discontinued Medications Bumetanide (Bumetanide 0.25 Mg/Ml Sdv 10 Ml) 3 mg IVP TID [facility] Last Admin: 10/14/25 14:35 Dose: Not Given Clopidogrel Bisulfate (Clopidogrel 75 Mg Tablet) 75 mg PO DAILY [facility] Last Admin: 10/14/25 05:08 Dose: 75 mg Docusate Sodium (Docusate Sodium 100 Mg Capsule) 100 mg PO BID [facility] Last Admin: 10/14/25 05:08 Dose: 100 mg Etomidate (Etomidate 2 Mg/Ml Inj Sdv 10 Ml) 30 mg IVP ONCE ONE Stop: 10/14/25 22:01 Last Admin: 10/14/25 21:45 Dose: 30 mg Famotidine (Famotidine 20 Mg Tablet) 20 mg PO BID [facility] Last Admin: 10/14/25 05:08 Dose: 20 mg Heparin Sodium (Porcine) (Heparin 5,000 Unit/Ml Inj 1 Ml) 5,000 unit SUBCUT Q12H [facility] Last Admin: 10/14/25 11:11 Dose: Not Given Heparin Sodium (Porcine) (Heparin, Porcine 1,000 Unit/Ml Inj 10 Ml) 10,000 unit INTRACATH ONCE ONE Stop: 10/14/25 05:54 Last Admin: 10/14/25 11:10 Dose: Not Given Heparin Sodium (Porcine) (Heparin, Porcine 1,000 Unit/Ml Inj 10 Ml) 1,000 unit IV ONCE ONE Stop: 10/14/25 05:54 Last Admin: 10/14/25 11:11 Dose: Not Given Lactated Ringer's (Lactated Ringers) Confirm Administered Dose 1,000 mls @ as directed .ROUTE .STK-MED ONE Stop: 10/14/25 14:42 Last Infusion: 10/14/25 15:45 Dose: Infused Norepinephrine Bitartrate (Levophed) Confirm Administered Dose 4 mg in 250 mls @ as directed .ROUTE .STK-MED ONE Stop: 10/14/25 15:22 Sodium Chloride (Sodium Chloride 0.9%) 1,000 mls @ 999 mls/hr IV .Q1H1M ONE Stop: 10/14/25 16:52 Last Infusion: 10/14/25 17:05 Dose: Infused Fentanyl (Sublimaze) Confirm Administered Dose 1,000 mcg in 100 mls @ as direct ed .ROUTE .STK-MED ONE Stop: 10/14/25 21:51 Midazolam HCl (Versed) Confirm Administered Dose 100 mg in 100 mls @ as directed .ROUTE .STK-MED ONE Stop: 10/14/25 21:51 Vasopressin (Vasostrict) 40 unit in 100 mls @ 0 mls/hr IV .Q0M [facility]; Protocol Tranexamic Acid (Tranexamic Acid) Confirm Administered Dose 1,000 mg in 100 mls @ as directed .ROUTE .STK-MED ONE Stop: 10/14/25 23:05 Tranexamic Acid (Tranexamic Acid) 1,000 mg in 100 mls @ 600 mls/hr IV ONCE ONE Stop: 10/15/25 00:01 Last Infusion: 10/15/25 01:59 Dose: Infused Midazolam HCl (Midazolam 1 Mg/Ml Inj 2 Ml) 2 mg IVP ONCE ONE Stop: 10/14/25 22:05 Last Admin: 10/14/25 22:08 Dose: 2 mg Midazolam HCl (Midazolam 1 Mg/Ml Inj 2 Ml) Confirm Administered Dose 2 mg .ROUTE .STK-MED ONE Stop: 10/14/25 22:05 Midazolam HCl (Midazolam 1 Mg/Ml Inj 2 Ml) 1 mg IVP ONCE ONE Stop: 10/14/25 22:31 Last Admin: 10/14/25 22:32 Dose: 1 mg Midazolam HCl (Midazolam 1 Mg/Ml Inj 2 Ml) 1 mg IVP ONCE ONE Stop: 10/14/25 22:40 Last Admin: 10/14/25 22:40 Dose: 1 mg Morphine Sulfate (Morphine 4 Mg/Ml Sdv 1 Ml) 3 mg IVP Q4H PRN PRN Reason: SEVERE PAIN Last Admin: 10/13/25 20:54 Dose: 3 mg Polyethylene Glycol (Polyethylene Glycol 3350 Pkt 17 Gm) 17 gm PO DAILY [facility] Last Admin: 10/14/25 05:08 Dose: 17 gm Propofol (Propofol 10 Mg/Ml Sdv 20 Ml) Confirm Administered Dose 200 mg .ROUTE .STK-MED ONE Stop: 10/14/25 21:35 Last Admin: 10/14/25 22:30 Dose: Not Given Rocuronium Trenary (Rocuronium 10 Mg/Ml Inj 5ml) Confirm Administered Dose 50 mg .ROUTE .STK-MED ONE Stop: 10/14/25 21:59 Silver Nitrate (Silver Nitrate Applicator) Confirm Administered Dose 3 each .ROUTE .STK-MED ONE Stop: 10/14/25 23:24 Last Admin: 10/15/25 02:03 Dose: Not Given Succinylcholine Chloride (Succinylcholine 20 Mg/Ml Sdv 10ml) Confirm Administered Dose 400 mg .ROUTE .STK-MED ONE Stop: 10/14/25 21:35 Succinylcholine Chloride (Succinylcholine 20 Mg/Ml Sdv 10ml) 100 mg IVP ONCE ONE Stop: 10/14/25 22:01 Last Admin: 10/14/25 21:43 Dose: 100 mg Tranexamic Acid (Tranexamic Acid 1,000 Mg/10ml Sdv) Confirm Administered Dose 3,000 mg .ROUTE .STK-MED ONE Stop: 10/14/25 23:07 Last Admin: 10/14/25 23:15 Dose: 1,000 mg Vancomycin HCl (Vancomycin 125 Mg Capsule) 250 mg PO QID [facility] Last Admin: 10/14/25 14:35 Dose: 250 mg Allergies amoxicillin (From Augmentin) Allergy (Verified 08/31/25 10:19) ALGY-Rash clavulanic acid (From Augmentin) Allergy (Verified 08/31/25 10:19) ALGY-Rash clopidogrel (From Plavix) Allergy (Verified 08/31/25 10:19) ALGY-Joint Pain Vvjisky-[id number] Reductase Inhibitor (Hkxoryl-Nyi-Ukx Reductase Inhibitor) Allergy (Verified 08/31/25 10:19) ADV-Weakness sulfamethoxazole (From Bactrim) Allergy (Verified 08/31/25 10:19) ALGY-Rash trimethoprim (From Bactrim) Allergy (Verified 08/31/25 10:19) ALGY-Rash Home Medications nitroglycerin 0.4 mg sublingual tablet (Nitrostat) 0.4 mg sublingual Q5M PRN Chest Pain 11/21/19 [History Confirmed 10/14/25] omeprazole 20 mg capsule,delayed release 20 mg PO BID PRN Acid Reflux 01/16/20 [History Confirmed 10/14/25] amlodipine 5 mg tablet 10 mg (2 x 5 mg) PO DAILY #14 tabs 01/07/22 [Rx Confirmed 10/14/25] hydrocodone 7.5 mg-acetaminophen 325 mg tablet 1 tab PO Q8H PRN Pain 04/20/23 [History Confirmed 10/14/25] furosemide 40 mg tablet 40 mg PO DAILY PRN Edema 12/29/24 [History Confirmed 10/14/25] ketoconazole 2 % shampoo See Rx Instructions .Route .COMPLEX 09/16/25 [History Confirmed 10/14/25] lisinopril 20 mg tablet 20 mg PO BID 09/16/25 [History Confirmed 10/14/25] Discharge Plan Discharge Patient Disposition: Home Condition: Stable Prescriptions: Continued omeprazole 20 mg capsule,delayed release(DR/EC) 20 mg PO BID PRN (Reason: Acid Reflux) furosemide 40 mg tablet 40 mg PO DAILY PRN (Reason: Edema) Held amlodipine 5 mg tablet 10 mg PO DAILY Qty: 14 0RF Hold Instructions: Resume on 09/25/25. hydrocodone-acetaminophen 7.5-325 mg tablet 1 tab PO Q8H PRN (Reason: Pain) Hold Instructions: Resume on 09/25/25. nitroglycerin [Nitrostat] 0.4 mg Tablet, Sublingual 0.4 mg SUBLINGUAL Q5M PRN (Reason: Chest Pain) Hold Instructions: Resume on 09/25/25. ketoconazole 2 % shampoo See Rx Instructions .ROUTE .COMPLEX Hold Instructions: Resume on 09/25/25. Rx Instructions: Lather onto SCALP and face two TO three times weekly, allow TO sit FOR FIVE minutes THEN RINSE lisinopril 20 mg tablet 20 mg PO BID Hold Instructions: Resume on 09/25/25. Referrals: Brandon Lopez MD [Primary Care Provider, [facility]] Patient Instructions: GI Post Discharge Instructions w/ Anesthesia, Opioid Safety, Patient Portal & Khushi Instructions Transfer Attestations Time Spent in Transfer Care: greater than 30 min Quality Metrics Clinical Quality Measures [ No reported AMI, CVA or VTE this stay] Coding Level of Care Code Acute Code for Chg Fwd Diagnoses Postoperative bleeding from mouth ESRD on dialysis N18.6; Z99.2 Acute respiratory failure with hypoxia J96.01 Acute congestive heart failure I50.9 C. difficile colitis A04.72 Intensive care (ICU) myopathy G72.81
[2025-10-15] MEDS: pantoprazole 40 mg SDV IVP (06:28)
[2025-10-15 07:25] LABS: Hematocrit 31.9 % (37-53); Hemoglobin 9.70 g/dL (11.27-16.99); Mean Corpuscular HGB Conc 30.4 g/dL (30-55); Mean Corpuscular Hemoglobin 31.9 pg (27-33); Mean Corpuscular Volume 104.9 fl (82-101); Nucleated Red Blood Cells % 15.4 %; Platelet Count 70 10^3/cmm (157-399); Red Blood Count 3.04 10^6/uL (3.85-5.65)
[2025-10-15 07:48] LABS: Alanine Aminotransferase 36 U/L (0-41); Albumin Level 2.9 g/dL (3.5-5.2); Alkaline Phosphatase 231 U/L (40-130); Anion Gap 18.7 (5-19); Aspartate Amino Transferase 28 U/L (0-40); Blood Urea Nitrogen 47 mg/dL (8-23); Calcium 7.2 mg/dL (8.5-10.5); Carbon Dioxide 22 mmol/L (22-29); Chloride 102 mmol/L (98-107); Globulin 1.8 g/dL (1.3-4.6); Glucose 156 mg/dL (65-115); Magnesium 2.3 mg/dL (1.7-2.3); Osmolality Calculated 301 mOsm/kg (285-295); Potassium 4.7 mmol/L (3.5-5.1); Sodium 138 mmol/L (136-145); Total Protein 4.7 g/dL (6.6-8.7)
--- NOTE | 2025-10-15 07:57 | PC.NURSE ---
Addendum entered by Michael Banks RN 10/15/25 09:43: HGB resultes came back. Higher than anticipated. Was 8.3, and it increased to 9.7.... Nurse alerted Dr Moody. Ordered to hold off on the blood for now, continue to monitor for any new blood loss, will manage hypotension with fluids and pressors. Original Note: Physician Communication: Patien'ts pressor requirements have increased this morning. No longer able to obtain SPO2 from peripheral probe and switched to forhead probe and poor capilarry refill. Blood pressures have been increasingly difficult to obtain. Though there is no new external blood loss noted, nurse is concerned about further blood loss. HGB is pending at this time. Nurse alerted Dr Moody to these concerns. Received orders for fluid bolus should maps drop below 55, and orders for 2 units of blood.
[2025-10-15 08:07] LABS: White Blood Count 0.39 10^3/uL (3.29-11.43)
[2025-10-15 08:08] LABS: Slide Review Slide Review Perform
--- NOTE | 2025-10-15 10:10 | PC.NURSE ---
Transfer: [facility] critical care team came to transfer patient at approximately 0915. Daughter is at bedside and is aware of the transfer. Nurse called [facility] medical ICU and alerted them to patient heading their way.
== END 2025-10-15 09:45 | disposition short-term general hospital (02) | DRG 291 ==
LOC: ER 17:33 → CSU 18:03 → ICU 10-14 15:11
PROVIDERS: Family Medicine; Specialist; Admitting Provider Internal Medicine; Emergency Provider Emergency Medicine; PCP Family Medicine; Visit Provider Internal Medicine
PROC: 0DJ08ZZ Inspection of Upper Intestinal Tract, Via Natural or Artificial Opening Endoscopic (ICD-10-PCS; principal; 2025-10-14 21:15)
DX: I13.2 Hypertensive heart and chronic kidney disease with heart failure and with stage 5 chronic kidney disease, or end stage renal disease (principal); I50.21 Acute systolic (congestive) heart failure; N18.6 End stage renal disease; J96.01 Acute respiratory failure with hypoxia; D68.32 Hemorrhagic disorder due to extrinsic circulating anticoagulants; A04.72 Enterocolitis due to Clostridium difficile, not specified as recurrent; G72.81 Critical illness myopathy; R04.0 Epistaxis; T45.525A Adverse effect of antithrombotic drugs, initial encounter; K44.9 Diaphragmatic hernia without obstruction or gangrene; I95.9 Hypotension, unspecified; M62.830 Muscle spasm of back; D63.1 Anemia in chronic kidney disease; I25.5 Ischemic cardiomyopathy; N40.1 Benign prostatic hyperplasia with lower urinary tract symptoms; I35.0 Nonrheumatic aortic (valve) stenosis; I25.10 Atherosclerotic heart disease of native coronary artery without angina pectoris; Z99.2 Dependence on renal dialysis; Z91.158 Patient's noncompliance with renal dialysis for other reason; I25.2 Old myocardial infarction; Z79.82 Long term (current) use of aspirin; Z79.02 Long term (current) use of antithrombotics/antiplatelets; Z86.718 Personal history of other venous thrombosis and embolism; Z95.1 Presence of aortocoronary bypass graft
CPT/HCPCS: 36415; 36416; 36430; 36592; 36600; 51702; 70450; 71045; 74176; 80051; 80053; 82330; 82805; 82962; 83735; 83880; 84100; 84484; 85014; 85018; 85025; 85384; 85610; 86850; 86900; 86920; 87324; 87493; 88304; 90935; 93005; 94002; 94003; 94799; 96372; 99285; J0330; J1644; J2250; J2270; J2470; J2598; J3010; J3490; J7030; J7120; J9999; P9016; P9047